=== PATIENT | female | born 1940 | race Caucasian/White ===

== ENCOUNTER → 2017-02-09 | Day surgery (SDC) | payer MEDICARE ==
[~2017-02-09] MED LIST: ASPI81TA82 PO; CALA180T PO; COUM5TAB PO; COZA50TA PO; FURO1TAB93 PO; LACTATED RINGER'S 1000 ML INJ 1,000 ML ONE; NITR.3 SL; NITR50 PO; PARO10TA PO; PROPOFOL 200 MG/20 ML AMP IV ONE; ROSU40 PO; SYNT137T PO; TRAM100T19 PO; TRAZ100 PO
--- NOTE | 2017-02-09 10:36 | GIPROC ---
[facility] [address] [facility], [address] EGD PROCEDURE REPORT EXAM DATE: 02/09/2017 PATIENT NAME: Nazanin Gee MR #: [id number] BIRTHDATE: 1940 ATTENDING: Lona Burnett MD ORDER #: [id number] TECHNICAL AIDE: Selam Sow RN STATUS: outpatient INDICATIONS: The patient is a 76 yr old female here for an EGD due to history of esophageal reflux PROCEDURE PERFORMED: EGD w/ biopsy MEDICATIONS: None and Per Anesthesia. TOPICAL ANESTHETIC: CONSENT: The patient understands the risks and benefits of the procedure and understands that these risks include, but are not limited to: sedation, allergic reaction, infection, perforation and/or bleeding. Alternative means of evaluation and treatment include, among others: physical exam, x-rays, and/or surgical intervention. The patient elects to proceed with this endoscopic procedure. medical equipment was checked for proper function. Hand hygiene and appropriate measures for infection prevention was taken. After the risks, benefits and alternatives of the procedure were thoroughly explained, Informed consent was verified, confirmed and timeout was successfully executed by the treatment team. The patient was anesthetized with topical anesthesia and the EC-3490Li ([id number]) endoscope was introduced through the mouth and advanced to the second portion of the duodenum. Retroflexed views revealed a hiatal hernia The gastroscope was then slowly withdrawn and removed. ESOPHAGUS: There was LA Class A esophagitis noted. A biopsy was performed using cold forceps. Sample sent for histology. STOMACH: There was erythematous moderate gastritis in the gastric antrum. A biopsy was performed using cold forceps. Sample sent for histology. DUODENUM: Moderate duodenal inflammation was found in the bulb and second portion of the duodenum. ADVERSE EVENTS: There were no complications. IMPRESSIONS: 1. There was LA Class A esophagitis noted; biopsy was performed 2. There was erythematous gastritis in the gastric antrum; biopsy was performed 3. Duodenal inflammation was found in the bulb and second portion of the duodenum 4. Retroflexed views revealed a hiatal hernia RECOMMENDATIONS: 1. Await biopsy results. Biopsy results will not be ready for 7-10 days. If you don't hear from us in two weeks, call our office for biopsy results. 2. Anti-reflux regimen 3. Continue PPI 4. Surgery PATIENT CONDITION: stable DISPOSITION: Home REPEAT EXAM: Return 1 year EGD pending biopsy results Lona Burnett MD eSigned: Lona Burnett MD 02/09/2017 10:35 AM cc: Pradeep Ly PATIENT NAME: Marlen Nazanin A MR#: [id number]
--- NOTE | 2017-02-09 10:47 | GIPROC ---
[facility] [address] [facility], [address] COLONOSCOPY PROCEDURE REPORT EXAM DATE: 02/09/2017 PATIENT NAME: Nazanin Gee MR #: [id number] BIRTHDATE: 1940 ENDOSCOPIST: Lona Burnett MD ORDER #: [id number] WINDING INSPECTOR AND TESTER: Selam Sow RN STATUS: outpatient INDICATIONS: The patient is a 76 yr old female here for a colonoscopy due to change in bowel habits and constipation PROCEDURE PERFORMED: Colonoscopy, diagnostic MEDICATIONS: None and Per Anesthesia. PREP QUALITY: The Accident Bowel Prep Score was Right colon 2, Mid colon 3, and Left colon 3. Total = 8. ESTIMATED BLOOD LOSS: None CONSENT: The patient understands the risks and benefits of the procedure and understands that these risks include, but are not limited to: sedation, allergic reaction, infection, perforation and/or bleeding. Alternative means of evaluation and treatment include, among others: physical exam, x-rays, and/or surgical intervention. The patient elects to proceed with this endoscopic procedure. medical equipment was checked for proper function. Hand hygiene and appropriate measures for infection prevention was taken. After the risks, benefits and alternatives of the procedure were thoroughly explained, Informed consent was verified, confirmed and timeout was successfully executed by the treatment team. A digital exam revealed external hemorrhoids The EC-3490Li ([id number]) endoscope was introduced through the anus and advanced to the cecum, which was identified by both the appendix and ileocecal valve. The instrument was then slowly withdrawn as the colon was fully examined. COLON FINDINGS: Severe diverticulosis was noted in the sigmoid colon. The colon mucosa was otherwise normal. Retroflexed views revealed internal hemorrhoids and Retroflexed views revealed medium internal hemorrhoids The scope was then completely withdrawn from the patient and the procedure terminated. PROCEDURE WITHDRAWAL TIME:6minutes ADVERSE EVENTS: There were no complications. IMPRESSIONS: 1. Severe diverticulosis was noted in the sigmoid colon 2. The colon mucosa was otherwise normal 3. Retroflexed views revealed internal hemorrhoids 4. Retroflexed views revealed medium internal hemorrhoids 5. Revealed external hemorrhoids RECOMMENDATIONS: 1. Benefiber 2 tsp daily 2. Continue surveillance 3. High fiber diet 4. No seeds, nuts and popcorn in diet RECALL: Return 5 years Colonoscopy Lona Burnett MD eSigned: Lona Burnett MD 02/09/2017 10:47 AM cc: Pradeep Ly PATIENT NAME: Nazanin Gee MR#: [id number]
== END | disposition home or self-care (01) ==
LOC: ESDC 08:52
PROVIDERS: ATTEND Internal Medicine Gastroenterology
DX: R19.4 Change in bowel habit (principal); K59.00 Constipation, unspecified; K21.9 Gastro-esophageal reflux disease without esophagitis; K57.90 Diverticulosis of intestine, part unspecified, without perforation or abscess without bleeding; K64.4 Residual hemorrhoidal skin tags; K64.8 Other hemorrhoids; K44.9 Diaphragmatic hernia without obstruction or gangrene; K29.70 Gastritis, unspecified, without bleeding; K20.9 Esophagitis, unspecified
CPT/HCPCS: 00740; 00810; 43239; 45378; 88305; 88312; J3010; J7120

== ENCOUNTER 2017-10-23 16:23 | Emergency (ER) | payer MEDICARE ==
[~2017-10-23] VITALS: Ht 172.7 cm; Wt 82.0 kg
[~2017-10-23 16:23] MED LIST changes: -LACTATED RINGER'S 1000 ML INJ 1,000 ML ONE; -PROPOFOL 200 MG/20 ML AMP IV ONE
[2017-10-23 16:41] VITALS: BP 135/60; PULSE 78; RESP 18; TEMP 100; O2SAT 96
[2017-10-23 16:59] VITALS: BP 139/63; PULSE 68; RESP 18; O2SAT 96
[2017-10-23] MEDS ORDERED: VERA180C3 PO (17:07)
[2017-10-23] MEDS ORDERED: ROSU1TAB8 PO (17:07)
[2017-10-23] MEDS ORDERED: LEVO88TA2 PO (17:07)
[2017-10-23] MEDS ORDERED: PANT40TA3 PO (17:07)
[2017-10-23] MEDS ORDERED: RANI150C PO (17:07)
[2017-10-23] MEDS ORDERED: NITR1SUB3 SL (17:07)
[2017-10-23] MEDS ORDERED: WARF-23 PO (17:07)
[2017-10-23] MEDS ORDERED: MULTIVITAMIN PO (17:07)
[2017-10-23] MEDS ORDERED: FURO40TA PO (17:07)
[2017-10-23] MEDS ORDERED: PARO10TA2 PO (17:07)
[2017-10-23] MEDS ORDERED: K-TA10TA PO (17:07)
[2017-10-23] MEDS ORDERED: TRAM50TA PO (17:07)
[2017-10-23] MEDS ORDERED: TRAZ100T10 PO (17:07)
[2017-10-23] MEDS ORDERED: FERR325T18 PO (17:07)
[2017-10-23] MEDS ORDERED: CO Q30CA3 (17:07)
[2017-10-23] MEDS ORDERED: LOSA50TA PO (17:07)
--- NOTE | 2017-10-23 17:14 | PD ---
HPI Chief Complaint: Pain: Acute or Chronic Time Seen by Provider: 17:00 Travel History International Travel<30 days: No Contact w/Intl Traveler<30days: No Traveled to known affect area: No History of Present Illness HPI 77-year-old female presents to the emergency department for evaluation of left anterior knee pain for 1 week without injury. She states she only has pain if she puts pressure on it. She denies any calf or thigh pain. She is on Coumadin for multiple cardiac stents. She also reports history of COPD. She denies any headache. No fevers or chills. No chest pain shortness breath. No abdominal pain. No nausea, vomiting, diarrhea. Patient states her last INR was 5. Patient states she has no pain at this time. She has no pain to palpation. She states the only time she has pain is if she puts weight on her left leg. Mild to moderate severity. 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) Asthma: Yes Atrial Fibrillation: Yes Autoimmune Disease: No Blood Disorders: No Anxiety: Yes Depression: No Heart Rhythm Problems: Yes Cancer: No Cardiac Catheterization: Yes Cardiovascular Problems: Yes High Cholesterol: Yes Chest Pain: Yes Congestive Heart Failure: Yes COPD: No Diminished Hearing: No Diverticulitis: Yes Endocrine: Yes Gastrointestinal Disorders: Yes GERD: No Glaucoma: No Genitourinary: Yes (HISTORY OF UTIS, CYSTOSCOPE) Hepatitis: No Hiatal Hernia: No Hypertension: Yes Immune Disorder: No Implanted Vascular Access Dvce: Yes Kidney Stones: No Musculoskeletal: Yes Neurologic: No Psychiatric: Yes Reproductive: No Respiratory: Yes Immunizations Current: Yes Myocardial Infarction: Yes (2011 and ) Renal Failure: No Sickle Cell Disease: No Sleep Apnea: Yes Thyroid Disease: Yes (HYPOTHROID) Ulcer: No Tetanus Vaccination: Unknown Influenza Vaccination: Yes PNEUMOCCOCAL Vaccine (Year): 1 Menopausal: Yes Tubal Ligation: Yes Past Surgical History Abdominal Surgery: Yes (BOWEL RESECTION) AICD: No Body Medical Devices: CATARCT REMOVAL + LENS IMPLANTS. CARDIAC STENTS Cardiac Surgery: Yes (CATH WITH STENT PLACEMENT) Coronary Stent: Yes (X3) Ear Surgery: No Endocrine Surgery: No Eye Surgery: Yes (CATARACTS, IOL BILAT EYES) Genitourinary Surgery: Yes (CYSTOSCOPY (SEPTIC FROM UTI)) Gynecologic Surgery: Yes (TUBAL LIGATION IN THE 1970s) Neurologic Surgery: No Oral Surgery: No Pacemaker: No Thoracic Surgery: No Other Surgery: Yes Social History Alcohol Use: Yes (OCCASIONAL ) Tobacco Use: No (QUIT) Substance Use: No Allergies-Medications (Allergen,Severity, Reaction): Coded Allergies: acebutolol (Unverified Adverse Reaction, Severe, Drops BP quickly, 10/23/17 ) DROPS HR SIGNIFICANTLY atenolol (Unverified Adverse Reaction, Severe, Drops BP quickly, 10/23/17) DROPS HR SIGNIFICANTLY betaxolol (Unverified Adverse Reaction, Severe, Drops BP quickly, 10/23/17) DROPS HR SIGNIFICANTLY carvedilol (Unverified Adverse Reaction, Severe, Drops BP quickly, 10/23/17 ) DROPS HR SIGNIFICANTLY labetalol (Unverified Adverse Reaction, Severe, Drops BP quickly, 10/23/17) DROPS HR SIGNIFICANTLY metoprolol (Unverified Adverse Reaction, Severe, Drops BP quickly, 10/23/17 ) DROPS HR SIGNIFICANTLY nebivolol (Unverified Adverse Reaction, Severe, Drops BP quickly, 10/23/17) DROPS HR SIGNIFICANTLY pindolol (Unverified Adverse Reaction, Severe, Drops BP quickly, 10/23/17) DROPS HR SIGNIFICANTLY propranolol (Unverified Adverse Reaction, Severe, Drops BP quickly, ) DROPS HR SIGNIFICANTLY sotalol (Unverified Adverse Reaction, Severe, Drops BP quickly, 10/23/17) DROPS HR SIGNIFICANTLY timolol (Unverified Adverse Reaction, Severe, Drops BP quickly, 10/23/17) DROPS HR SIGNIFICANTLY Reported Meds & Prescriptions Reported Meds & Active Scripts Active Reported Ferrous Sulfate 325 Mg (65 Mg Iron) Tablet 325 Mg PO DAILY Paroxetine (Paroxetine HCl) 10 Mg Tab 10 Mg PO DAILY Rosuvastatin (Rosuvastatin Calcium) 20 Mg Tab 20 Mg PO DAILY Warfarin 5 Mg Tab 5 Mg PO DAILY K-Tab (Potassium Chloride) 10 Meq Tab 10 Meq PO DAILY Co Q10 (Coenzyme Q10 (Ubidecarenone)) 30 Mg Cap [Viteyes Multivitamin] 1 Tab PO DAILY Verapamil SR (Verapamil HCl) 180 Mg Cap 180 Mg PO DAILY Losartan (Losartan Potassium) 50 Mg Tab 50 Mg PO DAILY Furosemide 40 Mg Tab 40 Mg PO DAILY Pantoprazole (Pantoprazole Sodium) 40 Mg Tab 40 Mg PO DAILY Trazodone (Trazodone HCl) 100 Mg Tablet 100 Mg PO HS Tramadol (Tramadol HCl) 50 Mg Tab 50 Mg PO Q6H PRN Levothyroxine (Levothyroxine Sodium) 88 Mcg Tab 88 Mcg PO DAILY Ranitidine (Ranitidine HCl) 150 Mg Cap 150 Mg PO BID Nitroglycerin SL (Nitroglycerin) 0.4 Mg Subl 0.4 Mg SL DIRECTED PRN ONE TABLET UNDER THE TONGUE NEEDED FOR CHEST PAIN, MAY REPEAT EVERY FIVE MINUTES FOR A TOTAL OF 3 DOSES OR CALL 911 IF NO RELIEF Review of Systems Except as stated in HPI: all other systems reviewed are Neg Physical Exam Narrative GENERAL: Well-nourished, well-developed elderly female patient. SKIN: Focused skin assessment warm/dry. Patient has no erythema or warmth over left knee. HEAD: Normocephalic. Atraumatic. EYES: No scleral icterus. No injection or drainage. NECK: Supple, trachea midline. No JVD or lymphadenopathy. CARDIOVASCULAR: Regular rate and rhythm without murmurs, gallops, or rubs. Left pedal pulse 2+. RESPIRATORY: Breath sounds equal bilaterally. No accessory muscle use. Lung sounds are clear to auscultation. GASTROINTESTINAL: Abdomen soft, non-tender, nondistended. MUSCULOSKELETAL: No cyanosis. Mild swelling over left anterior knee. No tenderness to palpation. No obvious deformity. She has full flexion without pain or stiffness of the left knee. BACK: Nontender without obvious deformity. No CVA tenderness. Data Data Last Documented VS Vital Signs Date Time Temp Pulse Resp B/P (MAP) Pulse Ox O2 Delivery O2 Flow Rate FiO2 10/23/17 16:59 68 18 139/63 (88) 96 Room Air 10/23/17 16:41 100.0 Orders Orders Complete Blood Count With Diff (10/23/17 17:09) Basic Metabolic Panel (Bmp) (10/23/17 17:09) Act Partial Throm Time (Ptt) (10/23/17 17:09) Prothrombin Time / Inr (Pt) (10/23/17 17:09) Knee, Complete (4vws) (10/23/17 ) Labs Laboratory Tests Test 10/23/17 17:15 White Blood Count 8.0 TH/MM3 Red Blood Count 4.51 MIL/MM3 Hemoglobin 13.8 GM/DL Hematocrit 41.2 % Mean Corpuscular Volume 91.3 FL Mean Corpuscular Hemoglobin 30.5 PG Mean Corpuscular Hemoglobin Concent 33.4 % Red Cell Distribution Width 13.4 % Platelet Count 258 TH/MM3 Mean Platelet Volume 8.9 FL Neutrophils (%) (Auto) 62.4 % Lymphocytes (%) (Auto) 23.0 % Monocytes (%) (Auto) 8.0 % Eosinophils (%) (Auto) 5.3 % Basophils (%) (Auto) 1.3 % Neutrophils # (Auto) 5.0 TH/MM3 Lymphocytes # (Auto) 1.8 TH/MM3 Monocytes # (Auto) 0.6 TH/MM3 Eosinophils # (Auto) 0.4 TH/MM3 Basophils # (Auto) 0.1 TH/MM3 CBC Comment DIFF FINAL Differential Comment Prothrombin Time 16.5 SEC Prothromb Time International Ratio 1.6 RATIO Activated Partial Thromboplast Time 32.7 SEC Blood Urea Nitrogen 17 MG/DL Creatinine 1.09 MG/DL Random Glucose 88 MG/DL Calcium Level 9.3 MG/DL Sodium Level 140 MEQ/L Potassium Level 3.9 MEQ/L Chloride Level 104 MEQ/L Carbon Dioxide Level 27.5 MEQ/L Anion Gap 9 MEQ/L Estimat Glomerular Filtration Rate 49 ML/MIN MDM Medical Decision Making Medical Screen Exam Complete: Yes Emergency Medical Condition: Yes Medical Record Reviewed: Yes Interpretation(s) x-ray of the left knee - CONCLUSION: 1. Unremarkable radiographs of the left knee. Differential Diagnosis Knee sprain versus contusion versus septic joint Narrative Course 77-year-old female presents to the emergency department for evaluation of left knee pain for 1 week without injury. Temp in triage is 100.0. However, as soon as patient arrived in room, temperature was rechecked and it was 98.6. Patient has no evidence of septic joint. She has full flexion, no erythema, no warmth. She has no pain to palpation, no edema. Patient does appear well on exam. CBC, BMP, PTT, PT/INR, x-ray left knee are ordered and pending. CBC is unremarkable. BMP shows no acute abnormality. PTT is 32.7. PT/INR is 16.5/1.7.. X-ray of the left knee is unremarkable. Patient stable for discharge. She is to follow-up with an orthopedist. She verbalizes agreement. The patient was discharged in stable condition with instructions, including return instructions and follow up instructions. Diagnosis Primary Impression: Left knee pain Qualified Codes: M25.562 - Pain in left knee Additional Impression: Rectocele Referrals: Griffin Nunez MD call for appointment Patient Instructions: General Instructions, Knee Sprain (ED) Additional Instructions: [id number] Tylenol every 4 hours as needed for pain. Ice for 20 minutes 4-5 times daily. Follow-up with an orthopedist. Return to the emergency department for any acute worsening of symptoms. Med/Other Pt SpecificInfo: No Change to Meds Disposition: 01 DISCHARGE HOME Condition: Stable Fay Torres October 23, 2017 17:14
[2017-10-23 17:35] LABS: BASOPHIL # 0.1 TH/MM3 (0-0.2); BASOPHIL % 1.3 % (0.0-2.0); EOSINOPHIL # 0.4 TH/MM3 (0-0.4); EOSINOPHIL % 5.3 % (0.0-4.0); HEMATOCRIT 41.2 % (35.0-46.0); HEMOGLOBIN 13.8 GM/DL (11.6-15.3); LYMPHOCYTE # 1.8 TH/MM3 (1.0-4.8); MEAN CELL VOLUME 91.3 FL (80.0-100.0); MEAN CORPUSCULAR HEMOGLOBIN 30.5 PG (27.0-34.0); MEAN CORPUSCULAR HGB CONC 33.4 % (32.0-36.0); MEAN PLATELET VOLUME 8.9 FL (7.0-11.0); MONOCYTE # 0.6 TH/MM3 (0-0.9); NEUT % 62.4 % (16.0-70.0); PLATELET COUNT 258 TH/MM3 (150-450); RED BLOOD COUNT 4.51 MIL/MM3 (4.00-5.30); RED CELL DISTRIBUTION WIDTH 13.4 % (11.6-17.2)
[2017-10-23 17:43] LABS: INTERNATIONAL NORMALIZED RATIO 1.6 RATIO; PROTHROMBIN TIME - PATIENT 16.5 SEC (9.8-11.6)
--- NOTE | 2017-10-23 17:51 | RADRPT ---
EXAM DATE/TIME: 10/23/2017 17:29 [place] COMPARISON: No previous studies available for comparison. INDICATIONS : Left Knee Pain, no trauma MEDICAL HISTORY : None. SURGICAL HISTORY : None. ENCOUNTER: Initial ACUITY: 1 day PAIN SCORE: 7/10 LOCATION: Left knee FINDINGS: Four view examination of the left knee demonstrates no evidence of fracture or dislocation. Bony min eralization is normal. The articular surfaces are intact. The suprapatellar soft tissues have a nor mal configuration. CONCLUSION: 1. Unremarkable radiographs of the left knee. Orlin Melendez MD on October 23, 2017 at 17:48 Board Certified Radiologist. This report was verified electronically.
[2017-10-23 17:58] LABS: BICARBONATE 27.5 MEQ/L (21.0-32.0); CALCIUM 9.3 MG/DL (8.5-10.1); CREATININE 1.09 MG/DL (0.50-1.00)
[2017-10-23 18:45] VITALS: BP 123/79
== END 2017-10-23 18:52 | disposition home or self-care (01) ==
LOC: NEPE 16:23
DX: M25.562 Pain in left knee (principal); I10 Essential (primary) hypertension; I48.91 Unspecified atrial fibrillation; E03.9 Hypothyroidism, unspecified; E78.00 Pure hypercholesterolemia, unspecified; I25.2 Old myocardial infarction; F41.9 Anxiety disorder, unspecified; Z79.01 Long term (current) use of anticoagulants; Z87.39 Personal history of other diseases of the musculoskeletal system and connective tissue; Z87.09 Personal history of other diseases of the respiratory system; Z86.79 Personal history of other diseases of the circulatory system; Z87.19 Personal history of other diseases of the digestive system; Z87.448 Personal history of other diseases of urinary system
CPT/HCPCS: 73564; 80048; 85025; 85610; 85730; 99284

== ENCOUNTER 2018-04-04 05:38 | Inpatient (IN) ==
[2018-04-04] MEDS ORDERED: Heparin - SQ 10,000 UNITS/ML Vial ONE (06:09)
[2018-04-04] MEDS ORDERED: ceFAZolin 2 GM Premix Inj 2 GM/50 ML PIGGYBACK IV.SIG ONE (06:09)
[2018-04-04] MEDS ORDERED: Insulin Regular (For Infusion) 100 UNIT in Sodium Chlor 0.9% Inj 99 ML IV.CONT PRN ×2 (06:12→11:27)
[2018-04-04] MEDS ORDERED: Dextrose 50% in Water 50 ML Vial IV.PUSH PRN ×2 (06:12→11:27)
[2018-04-04] MEDS ORDERED: Sodium Chlor 0.9% Inj 77.5 ML, Papaverine Inj 60 MG, Nitroglycerin Inj 100 MCG, dilTIAZ... IRRIGATION SCH ×3 (06:15)
[2018-04-04] MEDS ORDERED: Sodium Chloride 0.9% Irr Bot 500 ML, ceFAZolin Inj 500 MG IRRIGATION SCH ×2 (06:15)
[2018-04-04] MEDS ORDERED: Chlorhexidine 4% Topical 120 APPLIC/120 ML Bottle TOPICAL SCH (06:15)
[2018-04-04] MEDS ORDERED: Metoprolol Tartrate 25 MG Tablet PO ONE (06:19)
[2018-04-04] MEDS ORDERED: Chlorhexidine Gluconate 2% 1 Pack (2 Cloths) TOPICAL ONE (06:19)
[2018-04-04 06:36] LABS: Bilirubin,Urine Negative (Negative); Clarity,Urine Hazy (Clear); Color,Urine Yellow (Yellw/Straw); Glucose,Urine (UA) Negative (Negative); Leukocyte Esterase,Urine Trace (Negative); Mucus,Urine Few /lpf (Occasional); Nitrite,Urine Negative (Negative); Specific Gravity,Urine 1.019 (1.002-1.035); Squamous Epithelial Cell,Urine 4 /hpf (0-5)
[2018-04-04 06:59] LABS: Activated Partial Thrombo Time 27.5 sec (24.3-30.1); INR 1.1 Ratio; Prothrombin Time 11.2 sec (9.8-11.6)
[2018-04-04] MEDS ORDERED: Sodium Chlor 0.9% Inj 500 ML IV.SIG SCH (07:00)
[2018-04-04] MEDS ORDERED: Potassium Chlor 40 mEq Premix 40 MEQ/100 ML PIGGYBACK ONE (07:16)
[2018-04-04] MEDS ORDERED: CUST1000P IRRIGATION ONE (07:16)
[2018-04-04] MEDS ORDERED: Calcium Chloride Inj 1 GM/10 ML Syringe ONE (07:17)
[2018-04-04] MEDS ORDERED: Albumin Human 25% Inj 50 ML IV.SIG ONE (07:17)
[2018-04-04] MEDS ORDERED: Heparin 10,000 UNITS/10 ML Vial (for IV use) ONE (07:18)
[2018-04-04] MEDS ORDERED: Potassium Chlor 20 mEq Premix 20 MEQ/100 ML PIGGYBACK IV.SIG PRN ×3 (11:27)
[2018-04-04] MEDS ORDERED: Morphine Sulfate Inj 2 MG/ML Vial IV.PUSH PRN (11:27)
[2018-04-04] MEDS ORDERED: Calcium Chloride Inj 1 GM in Sodium Chlor 0.9% Inj 100 ML IV.SIG PRN (11:27)
[2018-04-04] MEDS ORDERED: Dexmedetomidine Inj 200 MCG in Sodium Chlor 0.9% Inj 48 ML IV.CONT PRN (11:27)
[2018-04-04] MEDS ORDERED: RESP: Racemic Epinephrine 2.25% 0.5 ML Neb NEB PRN (11:27)
[2018-04-04] MEDS ORDERED: Phenylephrine Inj 40 MG in Sodium Chlor 0.9% Inj 496 ML IV.CONT PRN (11:27)
[2018-04-04] MEDS ORDERED: Clevidipine Inj 25 MG/50 ML VIAL IV.CONT PRN (11:27)
[2018-04-04] MEDS ORDERED: Ketorolac Inj 30 MG/ML (IVP) Vial IV.PUSH PRN (11:27)
[2018-04-04] MEDS ORDERED: Post-op Orders (for Pharmacy) OTHER STA (11:27)
[2018-04-04] MEDS ORDERED: Magnesium Sulfate Inj 2 GM in Sodium Chlor 0.9% Inj 96 ML IV.SIG PRN ×4 (11:27)
[2018-04-04] MEDS ORDERED: Metoprolol Inj 5 MG/5 ML Vial IV.PUSH PRN (11:27)
[2018-04-04] MEDS ORDERED: Calcium Chloride Inj 1 GM/10 ML Syringe IV.PUSH PRN (11:27)
--- NOTE | 2018-04-04 11:51 | P.OP ---
Date of procedure: 04/04/18 Anesthesia: RONNAA Surgeon: Fermin Warner MD Operation and Findings: PREPROCEDURE DIAGNOSES 1. Severe Multi Vessel Coronary Artery Disease. 2. Severe aortic stenosis 3. Atrial fibrillation status post ablation POSTPROCEDURE DIAGNOSES 1. Severe Multi Vessel Coronary Artery Disease. 2. Severe aortic stenosis 3. Atrial fibrillation status post ablation 4. Heavily calcified ascending aorta SURGICAL PROCEDURE 1. Clampless off-pump Coronary Artery Bypass Grafting x 2 with Left Internal Mammary Artery (ZAPATA) to Left Anterior Descending (LAD), reverse saphenous vein graft to obtuse Marginal branch of the left Circumflex artery 2. Left leg Endoscopic Vein [place] 3. Left atrial appendage excision 4. Intraoperative Vein Mapping. SURGEON Fermin Warner MD THIMBLE PRESS OPERATOR MARIS Hyatt ANESTHESIA General endotracheal FOREIGN STUDENT ADVISER JANNET Henderson MD PREPARATION ChloraPrep. COUNTS Needle, sponge, and instrument counts were correct. DRAINS Two 32-Cymraes mediastinal tubes. COMPLICATIONS None. INDICATIONS FOR PROCEDURE The patient is a 77-year-old presenting with chest pain and shortness of breath. Patient was noted to have multi-vessel coronary artery disease and severe aortic stenosis. The patient is being brought to the operating room for surgical therapy. PROCEDURE Patient was brought to the operating room and placed supine on the OR table. Following the induction of adequate general endotracheal anesthesia and placement of appropriate monitoring devices, intraoperative vein mapping was performed which revealed good-caliber conduit in bilateral lower extremities. The patient was then prepped and draped in standard sterile fashion. Next, 2500 units of intravenous heparin was given. The left greater saphenous vein was harvested endoscopically. This appeared to be a useable-caliber conduit. Simultaneously, a median sternotomy was performed and the left internal mammary artery dissected free off the posterior sternal table. The patient was systemically heparinized and anticoagulation monitored by serial ACT measurements. The internal mammary artery had excellent pulsatile flow in it and was a good-caliber conduit. The pericardium was then divided in the midline , the cradle created and targets analyzed. Exploration and manual palpation of the ascending aorta revealed a heavily calcified aorta with dense posterior wall platelike plaque precluding the ability cross-clamp the aorta or pit put her on cardiopulmonary bypass, therefore, plans were made to proceed with off- pump coronary revascularization with potential TAVR following recovery. At this point, all anastomoses were performed in a beating-heart fashion using the MiniVax stabilizing system. The left internal mammary artery was anastomosed to the mid LAD (2.25 mm), distal to the previous stent, in an end-to-side fashion using 7-0 Prolene. Segment of saphenous vein graft was then anastomosed to the OM1 (1.75 mm) in an end-to-side fashion using 7-0 Prolene. The proximal anastomosis was then constructed to the ascending aorta in a clamp less running manner using the Heartstring device and a 6-0 Prolene. The left atrial appendage was then excised using the surgical stapler and sent for histologic evaluation. All anastomotic and staple line sites were inspected and appeared to be hemostatic and patent. Protamine solution was given. Strict hemostasis was assured. The closure was undertaken. 2 chest tubes were placed. The pericardium was reapproximated in the midline. The sternum was approximated using sternal wires. The muscular and fascial layer were then closed in 3 layers. The endoscopic vein harvest site was closed in 2 layers. The patient tolerated the procedure well and was transferred to CVICU in stable condition.
[2018-04-04] MEDS ORDERED: ceFAZolin Inj 2,000 MG in Sodium Chlor 0.9% Inj 80 ML IV.SIG SCH (12:00)
[2018-04-04] MEDS ORDERED: fentaNYL Citrate Inj 250 MCG/5 ML Ampul ONE (12:20)
[2018-04-04] MEDS: Albumin Human 5% Inj 250 ML IV.SIG PRN ×2 (12:35→15:20)
--- NOTE | 2018-04-04 13:24 | XR ---
EXAM DATE: 04/04/2018 1:16 PM EDT AGE/SEX: 77 years / Female INDICATIONS: Post-op CABG. CLINICAL DATA: This is the patient's initial encounter. Patient reports that signs and symptoms have been present for 1 day and indicates a pain score of Nonresponsive. MEDICAL/SURGICAL HISTORY: . Congestive heart failure. Chronic obstructive pulmonary disease. Hy pertension. Aortic stenosis. None. [place]PAR[place]: [facility] [place]&LAT[place]. . FINDINGS: A single AP view of the chest demonstrates evidence of CABG. Endotracheal tube approximately 4 cm abo ve the marium. Left subclavian central line with tip in the cavoatrial junction. Nasogastric tube coi led in what appears to be a large hiatal hernia. Mediastinal chest tube and left-sided chest tube. No pneumothorax. Cardiomegaly. Pulmonary vascular congestion and bibasilar densities. CONCLUSION: 1. Status post CABG. 2. Cardiomegaly with pulmonary vascular congestion and bibasilar densities. 3. Support lines and tubes as above. 4. Nasogastric tube likely coiled within a large hiatal hernia. Electronically signed by: Nawaf Fitzgerald MD 04/04/2018 1:23 PM EDT
[2018-04-04] MEDS: Mupirocin 2% Nasal Oint Topical Syringe EACH NARE SCH ×2 (14:14→21:59)
[2018-04-04] MEDS: ceFAZolin 2 GM Premix Inj 2 GM/50 ML PIGGYBACK IV.SIG SCH (15:20)
[2018-04-04] MEDS ORDERED: Normosol-R pH 7.4 Inj 1,000 ML IV.CONT ONE (17:21)
[2018-04-04] MEDS ORDERED: Glycopyrrolate 0.2 MG/ML Vial IV.PUSH ONE (17:21)
[2018-04-04] MEDS ORDERED: Sodium Chlor 0.9% Inj 500 ML IV.CONT ONE ×3 (17:21)
[2018-04-04] MEDS ORDERED: Dexmedetomidine Inj 200 MCG/2 ML Vial IV.CONT ONE (17:21)
[2018-04-04] MEDS ORDERED: Protamine Sulfate Inj 250 MG/25 ML Vial IV.CONT ONE (17:21)
[2018-04-04] MEDS ORDERED: Tranexamic Acid Inj 1,000 MG/10 ML Ampul IV.PUSH ONE (17:21)
[2018-04-04] MEDS ORDERED: Heparin - SQ 10,000 UNITS/ML Vial OTHER ONE (17:21)
[2018-04-04] MEDS ORDERED: Succinylcholine Inj 100 MG/5 ML Syringe IV.PUSH ONE (17:21)
[2018-04-04] MEDS ORDERED: Phenylephrine/NS 1000 MCG/10ML Syringe IV.PUSH ONE (17:21)
[2018-04-04] MEDS ORDERED: NITROGLYCERIN IV.CONT ONE (17:21)
[2018-04-04] MEDS ORDERED: Sodium Chlor 0.9% Inj 200 ML IV.CONT ONE (17:21)
[2018-04-04] MEDS: fentaNYL Citrate Inj 100 MCG/2 ML Ampul IV.PUSH PRN (21:55)
[2018-04-04] MEDS: Amiodarone 200 MG Tablet PO SCH (21:59)
[2018-04-05] MEDS: ceFAZolin 2 GM Premix Inj 2 GM/50 ML PIGGYBACK IV.SIG SCH ×3 (00:29→17:48)
[2018-04-05] MEDS: fentaNYL Citrate Inj 100 MCG/2 ML Ampul IV.PUSH PRN ×4 (03:44→08:49)
--- NOTE | 2018-04-05 05:02 | XR ---
EXAM DATE: 04/05/2018 4:53 AM EDT AGE/SEX: 77 years / Female INDICATIONS: Short of breath. CLINICAL DATA: This is the patient's subsequent encounter. Patient reports that signs and symptoms h ave been present for 2 days and indicates a pain score of 0/10. MEDICAL/SURGICAL HISTORY: . Congestive heart failure. Chronic obstructive pulmonary disease. Hy pertension. Aortic stenosis. CABG. [place] [facility] [place] S[place]. . FINDINGS: Median sternotomy changes are again noted. Mediastinal drain and left chest tube remain in place. No pneumothorax. There is basilar parenchymal consolidation, slightly worse on the right and modestly im proved on the left. Small, bilateral pleural effusions are likely. Heart size stable, upper limits of normal. Left subclavian central venous catheter with tip in the superior vena cava again noted. CONCLUSION: Bibasilar consolidation slightly worse on the right and slightly improved on the left since yesterday . Mediastinal drain and left chest tube remain in place. No pneumothorax. Electronically signed by: Caden Chisholm MD 04/05/2018 5:01 AM EDT
[2018-04-05 05:28] LABS: Hemoglobin 10.5 gm/dL (11.6-15.3); Mean Corpuscular HGB Conc 32.8 % (32.0-36.0); Mean Corpuscular Hemoglobin 30.9 pg (27.0-34.0); Mean Corpuscular Volume 94.1 fL (80.0-100.0); Mean Platelet Volume 8.8 fL (7.0-11.0); Platelet Count 224 th/mm3 (150-450); Red Blood Count 3.41 mil/mm3 (4.00-5.30); Red Cell Distribution Width 13.6 % (11.6-17.2); White Blood Count 15.6 th/mm3 (4.0-11.0)
[2018-04-05] MEDS: Levothyroxine 100 MCG Tablet PO SCH (05:45)
[2018-04-05 05:57] LABS: Calcium 8.4 mg/dL (8.5-10.1); Carbon Dioxide 24.1 meq/L (21.0-32.0); Magnesium 1.8 mg/dL (1.5-2.5); Potassium 4.2 meq/L (3.5-5.1)
[2018-04-05] MEDS ORDERED: ROSUVASTATIN 20 MG PO SCH (09:00)
[2018-04-05] MEDS ORDERED: Dextrose 50% in Water 50 ML Vial IV.PUSH PRN (09:16)
[2018-04-05] MEDS ORDERED: Sod Phosphate/Sod Biphosphate (Adult) Enema 133 ML Bottle RECTAL PRN (09:16)
[2018-04-05] MEDS ORDERED: Bisacodyl 10 MG Supp RECTAL PRN (09:16)
[2018-04-05] MEDS: Amiodarone 200 MG Tablet PO SCH ×2 (09:31→21:29)
[2018-04-05] MEDS: Mupirocin 2% Nasal Oint Topical Syringe EACH NARE SCH ×2 (09:32→21:33)
[2018-04-05] MEDS: Metoprolol Tartrate 25 MG Tablet PO SCH ×3 (09:36→22:08)
[2018-04-05] MEDS: Insulin NovoLOG Aspart Correctional Sugar Inj SQ SCH ×4 (10:07→22:08)
--- NOTE | 2018-04-05 12:01 | P.PNCV ---
- Note Subjective/Hospital Course: 77/ female initially seen on 03/13/18 in [facility] with Dr Warner, hx of progressive SOB over past few months . Known hx of CAD previous PCI's , ECHO revealed severe . Cardiac cath revealed multivessel disease PMH: Afib, Aortic stenosis, Asthma, CAD (coronary artery disease), CHF ( congestive heart failure), HLD (hyperlipidemia), HTN (hypertension) Hiatal hernia, Hypothyroid, LBBB (left bundle branch block), Mitral regurgitation, Myocardial infarct, Sleep apnea, TIA (transient ischemic attack) UTI (urinary tract infection) 04/04 pt electively admitted for surgery PREPROCEDURE DIAGNOSES 1. Severe Multi Vessel Coronary Artery Disease. 2. Severe aortic stenosis 3. Atrial fibrillation status post ablation POSTPROCEDURE DIAGNOSES 1. Severe Multi Vessel Coronary Artery Disease. 2. Severe aortic stenosis 3. Atrial fibrillation status post ablation 4. Heavily calcified ascending aorta SURGICAL PROCEDURE 1. Clampless off-pump Coronary Artery Bypass Grafting x 2 with Left Internal Mammary Artery (ZAPATA) to Left Anterior Descending (LAD), reverse saphenous vein graft to obtuse Marginal branch of the left Circumflex artery 2. Left leg Endoscopic Vein [place] 3. Left atrial appendage excision pt extubated after surgery crystalloid 2300cc, 1500cc EBL, 750cc cell saver 04/05 pt up in chair ECG with some mild global st elevation / pericarditis + rub, no pressors , stable for transfer, resume BB will need to resume coumadin when chest tubes out Objective: Vital Signs - 24 hr 04/04/18 12:00 04/04/18 12:11 04/04/18 12:41 Temperature 97.5 F L Pulse Rate 58 L 60 Respiratory Rate 12 12 Blood Pressure 107/32 L Pulse Oximetry 99 99 04/04/18 13:15 04/04/18 15:00 04/04/18 15:15 Temperature 97.4 F L Pulse Rate 64 Respiratory Rate 9 L 12 12 Blood Pressure 120/53 L Pulse Oximetry 96 99 99 04/04/18 15:30 04/04/18 17:00 04/04/18 17:25 Temperature Pulse Rate 67 Respiratory Rate 12 13 12 Blood Pressure Pulse Oximetry 99 99 04/04/18 18:05 04/04/18 19:00 04/04/18 20:00 Temperature 98.8 F Pulse Rate 71 80 Respiratory Rate 9 L 12 Blood Pressure 123/62 Pulse Oximetry 99 99 04/04/18 20:49 04/04/18 23:00 04/05/18 00:00 Temperature 99 F Pulse Rate 87 86 80 Respiratory Rate 14 18 16 Blood Pressure 144/67 H Pulse Oximetry 99 04/05/18 00:45 04/05/18 03:00 04/05/18 04:05 Temperature 99.4 F Pulse Rate 89 93 H Respiratory Rate 16 16 14 Blood Pressure 140/68 Pulse Oximetry 99 04/05/18 04:15 04/05/18 07:00 04/05/18 09:21 Temperature 98.8 F Pulse Rate 84 101 H Respiratory Rate 16 16 18 Blood Pressure 145/55 H Pulse Oximetry 97 94 L GENERAL: A&O x 3 SKIN: Warm and dry. prevena dressing to chest cain wrap to left leg HEAD: Normocephalic. EYES: No scleral icterus. No injection or drainage. NECK: Supple, trachea midline. No JVD or lymphadenopathy. CARDIOVASCULAR: Regular rate and rhythm without murmurs, gallops, + rubs. RESPIRATORY: Breath sounds equal bilaterally. No accessory muscle use. diminished in the bases , chest tube to wall suction, no air leak / drained 130cc/ 12hrs GASTROINTESTINAL: Abdomen soft, non-tender, nondistended. MUSCULOSKELETAL: No cyanosis, or edema. BACK: Nontender without obvious deformity. No CVA tenderness. Labs: Laboratory Results - last 12 hr 04/05/18 04/05/18 04/05/18 00:19 02:01 04:17 WBC RBC Hgb Hct MCV MCH MCHC RDW Plt Count MPV Sodium Potassium Chloride Carbon Dioxide Anion Gap BUN Creatinine Estimated GFR POC Glucose 81 113 H 132 H Random Glucose Calcium Magnesium 04/05/18 04/05/18 04/05/18 05:00 05:00 05:13 WBC 15.6 H RBC 3.41 L Hgb 10.5 L Hct 32.0 L MCV 94.1 MCH 30.9 MCHC 32.8 RDW 13.6 Plt Count 224 MPV 8.8 Sodium 141 Potassium 4.2 Chloride 110 H Carbon Dioxide 24.1 Anion Gap 7 BUN 18 Creatinine 0.96 Estimated GFR 56 L POC Glucose 115 H Random Glucose 104 Calcium 8.4 L Magnesium 1.8 04/05/18 04/05/18 07:21 09:20 WBC RBC Hgb Hct MCV MCH MCHC RDW Plt Count MPV Sodium Potassium Chloride Carbon Dioxide Anion Gap BUN Creatinine Estimated GFR POC Glucose 77 102 Random Glucose Calcium Magnesium Result Diagrams: 04/05/18 05:00 04/05/18 05:00 Telemetry: NSR/ global mild st elevation + rub/ pericarditis - Plan (1) S/P CABG (coronary artery bypass graft) Plan: ASA, no statin / pt intolerance and allergy pulm toileting , nebs ezpap, acapella OOB ambulate resume BB eval for rehab at discharge (5) Atrial fibrillation Plan: s/p atrial appendage excision resume Coumadin when chest tubes out (6) COPD (chronic obstructive pulmonary disease) Plan: nebs
--- NOTE | 2018-04-05 13:27 | ECG ---
Date Performed: 04/05/2018 Time Performed: 06:12:44 PTAGE: 77 years EKG: Sinus rhythm Extensive ST elevation - consider pericarditis Borderline ECG PREVIOUS TRACING : 03/09/2018 10.17 DOCTOR: Juan Alberto Young Interpretating Date/Time 04/05/2018 13:26:00
--- NOTE | 2018-04-05 15:37 | P.DIET ---
Nutritional Evaluation Type of nutrition evaluation: initial [place] [facility] [place]: [place] [facility] [place] Education Objective - Diagnosis CABG x 2 - Objective Dietitian Reviewed in Medical Record: Current diet, Intake & Output, Labs, Medical history Diet Order: Cardiac Objective Comments: 04/04/18 CABG x 2 Assessment Assessment: Pt is s/p CABG x 2(04/04/18). Patient Navigator to provide education. Please Consult RD if complexities with diet education arise. Recommendations: 1. Patient Navigator to provide education 2. Please Consult RD if complexities with diet education arise
[2018-04-05] MEDS: Docusate Sodium 100 MG Capsule PO SCH (21:29)
[2018-04-06] MEDS: ceFAZolin 2 GM Premix Inj 2 GM/50 ML PIGGYBACK IV.SIG SCH (00:09)
[2018-04-06] MEDS: Insulin NovoLOG Aspart Correctional Sugar Inj SQ SCH ×5 (03:56→20:46)
[2018-04-06] MEDS ORDERED: Amiodarone Inj 150 MG in Dextrose 5% in Water Inj 100 ML IV.SIG SCH ×2 (04:45)
[2018-04-06] MEDS: Levothyroxine 100 MCG Tablet PO SCH (05:13)
[2018-04-06 07:08] LABS: Baso % (Auto) 0.1 % (0.0-2.0); Eos % (Auto) 0.1 % (0.0-4.0); Hematocrit 29.5 % (35.0-46.0); Hemoglobin 9.9 gm/dL (11.6-15.3); Lymph # (Auto) 0.9 th/mm3 (1.0-4.8); Lymph % (Auto) 4.5 % (9.0-44.0); Mean Corpuscular HGB Conc 33.7 % (32.0-36.0); Mean Corpuscular Hemoglobin 31.4 pg (27.0-34.0); Mean Corpuscular Volume 93.4 fL (80.0-100.0); Mean Platelet Volume 9.3 fL (7.0-11.0); Mono # (Auto) 2.5 th/mm3 (0.0-0.9); Mono % (Auto) 12.6 % (0.0-8.0); Neut # (Auto) 16.4 th/mm3 (1.8-7.7); Neut % (Auto) 82.7 % (16.0-70.0); Platelet Count 227 th/mm3 (150-450); Red Blood Count 3.16 mil/mm3 (4.00-5.30); White Blood Count 19.8 th/mm3 (4.0-11.0)
[2018-04-06 07:18] LABS: INR 1.7 Ratio
[2018-04-06 07:50] LABS: Calcium 8.6 mg/dL (8.5-10.1); Carbon Dioxide 27.5 meq/L (21.0-32.0); Magnesium 2.5 mg/dL (1.5-2.5); Potassium 4.5 meq/L (3.5-5.1)
[2018-04-06 08:46] LABS: Lymphocytes 4 % (9-44); Monocytes 15 % (0-8)
[2018-04-06 08:47] LABS: Platelet Estimate Normal (Normal); Platelet Morphology Normal (Normal); RBC Morphology Normal (Normal)
[2018-04-06] MEDS: Docusate Sodium 100 MG Capsule PO SCH ×2 (09:26→20:43)
[2018-04-06] MEDS: Metoprolol Tartrate 25 MG Tablet PO SCH ×2 (09:27→09:29)
[2018-04-06] MEDS: Multivitamin/Minerals Therapeutic Tablet PO SCH (09:27)
[2018-04-06] MEDS: Amiodarone 200 MG Tablet PO SCH (09:27)
[2018-04-06] MEDS: Polyethylene Glycol 3350 17 GM Packet PO SCH (09:28)
[2018-04-06] MEDS: Mupirocin 2% Nasal Oint Topical Syringe EACH NARE SCH ×2 (09:28→20:43)
[2018-04-06] MEDS ORDERED: Amiodarone Inj 150 MG in Dextrose 5% in Water Inj 97 ML IV.SIG ONE ×2 (09:33)
--- NOTE | 2018-04-06 12:00 | P.PNCV ---
- Note Subjective/Hospital Course: 77/ female initially seen on 03/13/18 in [facility] with Dr Warner, hx of progressive SOB over past few months . Known hx of CAD previous PCI's , ECHO revealed severe . Cardiac cath revealed multivessel disease PMH: Afib, Aortic stenosis, Asthma, CAD (coronary artery disease), CHF ( congestive heart failure), HLD (hyperlipidemia), HTN (hypertension) Hiatal hernia, Hypothyroid, LBBB (left bundle branch block), Mitral regurgitation, Myocardial infarct, Sleep apnea, TIA (transient ischemic attack) UTI (urinary tract infection) 04/04 pt electively admitted for surgery PREPROCEDURE DIAGNOSES 1. Severe Multi Vessel Coronary Artery Disease. 2. Severe aortic stenosis 3. Atrial fibrillation status post ablation POSTPROCEDURE DIAGNOSES 1. Severe Multi Vessel Coronary Artery Disease. 2. Severe aortic stenosis 3. Atrial fibrillation status post ablation 4. Heavily calcified ascending aorta SURGICAL PROCEDURE 1. Clampless off-pump Coronary Artery Bypass Grafting x 2 with Left Internal Mammary Artery (ZAPATA) to Left Anterior Descending (LAD), reverse saphenous vein graft to obtuse Marginal branch of the left Circumflex artery 2. Left leg Endoscopic Vein [place] 3. Left atrial appendage excision pt extubated after surgery crystalloid 2300cc, 1500cc EBL, 750cc cell saver 04/05 pt up in chair ECG with some mild global st elevation / pericarditis + rub, no pressors , stable for transfer, resume BB will need to resume coumadin when chest tubes out 04/06 chest tube dc without difficultly pt went into afib RVR last night and this am received 2nd bolus of amiodarone / po amiodarone increased will resume coumadin / this pm goal 2.5 / followed by Dr Menendez at home Objective: Vital Signs - 24 hr 04/05/18 12:00 04/05/18 15:00 04/05/18 15:17 Temperature 98.5 F Pulse Rate 82 75 83 Respiratory Rate 17 17 Blood Pressure 141/65 H Pulse Oximetry 97 04/05/18 16:02 04/05/18 16:16 04/05/18 17:11 Temperature 98.9 F Pulse Rate 81 80 79 Respiratory Rate 18 Blood Pressure 134/60 Pulse Oximetry 04/05/18 18:26 04/05/18 19:00 04/05/18 20:00 Temperature 98.2 F Pulse Rate 79 81 78 Respiratory Rate 16 Blood Pressure 123/55 L Pulse Oximetry 96 04/05/18 20:52 04/05/18 20:55 04/05/18 21:00 Temperature Pulse Rate 78 78 Respiratory Rate 18 Blood Pressure Pulse Oximetry 97 04/05/18 22:00 04/05/18 23:00 04/06/18 00:00 Temperature 98.7 F Pulse Rate 82 75 74 Respiratory Rate 16 Blood Pressure 114/70 Pulse Oximetry 96 04/06/18 01:00 04/06/18 02:00 04/06/18 03:00 Temperature 98.2 F Pulse Rate 80 108 H 118 H Respiratory Rate 16 Blood Pressure 117/67 Pulse Oximetry 97 04/06/18 04:00 04/06/18 05:00 04/06/18 06:00 Temperature Pulse Rate 122 H 108 H 112 H Respiratory Rate Blood Pressure Pulse Oximetry 04/06/18 07:00 04/06/18 08:00 04/06/18 09:00 Temperature 98.3 F Pulse Rate 120 H 112 H 120 H Respiratory Rate 18 Blood Pressure 122/59 L Pulse Oximetry 94 L 04/06/18 10:00 04/06/18 10:25 04/06/18 10:46 Temperature Pulse Rate 126 H 125 H Respiratory Rate Blood Pressure Pulse Oximetry 96 GENERAL: A&O x 3 SKIN: Warm and dry. prevena dressing to chest / incision intact to left leg HEAD: Normocephalic. EYES: No scleral icterus. No injection or drainage. NECK: Supple, trachea midline. No JVD or lymphadenopathy. CARDIOVASCULAR: irregular rate and rhythm without murmurs, gallops, or rubs. RESPIRATORY: Breath sounds equal bilaterally. No accessory muscle use. diminished in bases / chest tube dc without difficulty GASTROINTESTINAL: Abdomen soft, non-tender, nondistended. MUSCULOSKELETAL: No cyanosis, or edema. BACK: Nontender without obvious deformity. No CVA tenderness. Labs: Laboratory Results - last 12 hr 04/06/18 04/06/18 04/06/18 02:33 05:17 05:30 WBC 19.8 H RBC 3.16 L Hgb 9.9 L Hct 29.5 L MCV 93.4 MCH 31.4 MCHC 33.7 RDW 14.0 Plt Count 227 MPV 9.3 Prelim Diff (Auto) Slide review pending Neut % (Auto) 82.7 H Lymph % (Auto) 4.5 L [place] % (Auto) 12.6 H Eos % (Auto) 0.1 Baso % (Auto) 0.1 Neut # (Auto) 16.4 H Lymph # (Auto) 0.9 L [place] # (Auto) 2.5 H Eos # (Auto) 0.0 Baso # (Auto) 0.0 WBC Differential Manual diff final Seg Neuts % (Manual) 79 H Band Neuts % (Manual) 1 Lymphocytes % (Manual) 4 L Monocytes % (Manual) 15 H Basophils % (Manual) 1 Abs Neuts (Manual) 15.8 H Differential Comment . Platelet Estimate Normal Platelet Morphology Normal RBC Morphology Normal PT INR Sodium Potassium Chloride Carbon Dioxide Anion Gap BUN Creatinine Estimated GFR POC Glucose 108 136 H Random Glucose Calcium Magnesium 04/06/18 04/06/18 04/06/18 05:30 05:30 08:20 WBC RBC Hgb Hct MCV MCH MCHC RDW Plt Count MPV Prelim Diff (Auto) Neut % (Auto) Lymph % (Auto) [place] % (Auto) Eos % (Auto) Baso % (Auto) Neut # (Auto) Lymph # (Auto) [place] # (Auto) Eos # (Auto) Baso # (Auto) WBC Differential Seg Neuts % (Manual) Band Neuts % (Manual) Lymphocytes % (Manual) Monocytes % (Manual) Basophils % (Manual) Abs Neuts (Manual) Differential Comment Platelet Estimate Platelet Morphology RBC Morphology PT 17.0 H INR 1.7 Sodium 138 Potassium 4.5 Chloride 104 Carbon Dioxide 27.5 Anion Gap 7 BUN 26 H Creatinine 1.08 H Estimated GFR 49 L POC Glucose 115 H Random Glucose 100 Calcium 8.6 Magnesium 2.5 D Result Diagrams: 04/06/18 05:30 04/06/18 05:30 Telemetry: NSR> AFIB - Plan (1) S/P CABG (coronary artery bypass graft) Plan: ASA, resume home med [place] pulm toileting , nebs ezpap, acapella OOB ambulate resume BB eval for rehab at discharge (2) Severe aortic stenosis Plan: will need planned TAVR after discharge (5) Atrial fibrillation Plan: s/p atrial appendage excision resume Coumadin on amiodarone (6) COPD (chronic obstructive pulmonary disease) Plan: nebs ezpap and acapella
--- NOTE | 2018-04-06 12:07 | P.DCO ---
- Diagnosis (1) Severe aortic stenosis Status: Chronic (2) Coronary artery disease involving [place] coronary artery Status: Acute (3) Congestive heart failure (CHF) Status: Chronic (4) Atrial fibrillation Status: Chronic (5) COPD (chronic obstructive pulmonary disease) Status: Chronic (6) S/P CABG (coronary artery bypass graft) Status: Acute - Home Health Nursing Order: Medical education, Signs/symptoms of disease process, Wound care and dressing changes, Nursing assessment with vital signs Instructions: PREVENA Single Use Negative Wound Therapy System Caregiver Instruction Sheet 1. A Prevena dressing system was applied to the chest incision during surgery , to promote wound healing. It works via a suction device (negative pressure wound therapy) to remove low to moderate levels of exudate (drainage) and infectious materials. We recommend that the device stay in place for up to seven days, from day of surgery. 2. Day of Surgery__/ Day of Removal ____/11/21 3. The dressing should only be removed by a health healthcare network pricing consultant. Please arrange removal of device to coincide with Home Health visit and or with Nursing staff at Rehab 4. If skin reddening or irritation of skin occurs, or excessive drainage, please notify the Cardiovascular Surgeons office at [phone]. 5. Light showering is permissible; however the pump should be disconnected and placed in safe location, where it will not get wet. The dressing should not be exposed to direct spray or submerged in water. No bath tub / shower only. Ensure the end of the tubing attached to the dressing is facing down so that water does not enter the top of the tube. 6. To remove Prevena dressing: press purple button to turn off device / remove the suction. Then disconnect the tubing from the pump. The fixation strips should be stretched away from the skin and the dressing lifted at one corner and peeled back until it has been fully removed. 7. After removal, it is ok to shower daily using liquid dial soap and clean wash cloth, rinse and pat dry, and leave incision open to air dry. For any concerns regarding Prevena dressing, and or wounds, please contact Krysta Garcia, patient navigator at [phone] or notify the Cardiovascular Surgeons office at [phone]. Heart and Vascular Surgery patients *Special attention to sternal dressing Mandatory frequency Assess and evaluation, 4 days in a row The next week 3X week 2 times a week for 4 weeks 1 time a week for 5 weeks Schedule Heart and Vascular patients for full 60 day certification period Initial visit Review Open Heart Surgery Discharge Instructions (Sternal precautions, Activity, Elastic hose, Incision care, Driving, Incentive spirometry, Smoking, [place], Work and other) Need Betadine to paint incision Medication reconciliation Importance of follow up care/ check on appointments Make calendar record temperature daily When to call [facility] at Home nurse, review instructions, phone list Incentive Spirometry, demonstration Visit 1- Begin discharge instruction for patient family and/ or caregiver using teach back method- Signs and symptoms of infection Disease characteristics Medicines and side effects Foods and nutrition/ appetite Infection control/ hand washing/ hygiene Visit 2- Continue teaching Discharge instructions- include additional information on smoking cessation , sternal dressing (sternal vac) Visit 3- Continue teaching- Cough and deep breathing, incision monitoring. Choose my plate Visit 4- Continue teaching- Discuss limitations Discuss how they are feeling Discuss progress toward goals Remaining visits- continue teaching and monitoring For any questions please call : Tuesday 8am-5pm Heart & Vascular Surgery Office ( Dr. Warner & Dr. Villareal), After Hours / Nights (5pm -8am) Weekends and Holidays Please call [facility] ([facility]) Charge Nurse Incentive spirometry Q1 hr x 10, while awake, also use acapella device hourly whole awake Sternal Breast Bone Precautions: NO pushing or pulling, ( pt must use sternal pillow to support chest with all activities and with coughing ( takes up to 3 months breast bone to heal ) All females to wear sternal bra , launder as needed Daily incision care: ok to shower daily, no tub bath. Wash all incisions with liquid dial soap, clean wash cloth to each site, rinse and pat dry. Observe for any signs of infection, such as drainage which is dark yellow, hernandez, green or foul smelling. Immediately report to the surgeon any drainage from the chest incision, or legs, and for any abnormal drainage from the chest tube sites. Notify surgeon if any temp >101.5 degrees F. When specialty dressing removed/ or if you do not have one, continue to shower daily as above, then rinse and pat incision dry and paint with betadine daily x 5 days. Allow steri strips to fall off if you have any. Avoid lotions, creams, salves, oils, etc. for the first month Please see attached forms for additional instructions regarding post Open Heart specialty wound vacuum dressings. JIMMY or Prevena , Dressing to be removed by Nursing staff on _04/11/18 PT/INR in 2 days ( prescription will be given) ( ) (Tele: ) , F/U appointment: as per DC instructions: PCP in 2 weeks, CV surgeon 2 weeks, Cnc Set Up Operator 3-4 weeks For any questions regarding incisions/ dressing / meds / post op care or above Symptoms, Tuesday 8am-5pm Heart & Vascular Surgery Office ( Dr. Warner & Dr. Villareal), After Hours / Nights (5pm -8am) Weekends and Holidays Please call [facility] ([facility]) Charge Nurse - Case Management Consult Yes - Certification I have seen patient Nazanin Gee on 04/06/18. My clinical findings support the need for the requested home health care services because: Deconditioned with increased weakness I certify that my clinical findings support that this patient is homebound because: Post-op weakness (pt will need PT/INR 2-[address] Warner )
[2018-04-06] MEDS ORDERED: Calcium Chloride Inj 1 GM/10 ML Syringe IV.PUSH ONE (15:19)
[2018-04-06] MEDS ORDERED: Calcium Chloride Inj 1 GM/10 ML Syringe ONE (15:22)
[2018-04-06] MEDS ORDERED: DOPamine Inj 800 MG in Dextrose 5% in Water Inj 480 ML IV.CONT PRN ×2 (15:25)
--- NOTE | 2018-04-06 15:38 | P.CONCC ---
History of Present Illness Service: Critical care medicine Consult date: 04/06/18 Requesting Physician: Fermin Warner Reason for Consult: Bradycardia, hypotension Primary Care Provider: No Primary Care Physician Chief Complaint: Weakness History of Present Illness: This is a 77-year-old female. Date of admission 04/04/2018. Date of consultation 04/06/2018. Patient has no history of aortic stenosis, coronary disease, hypertension, hyperlipidemia, gastroesophageal reflux disease, hypothyroidism and depression. On 04/04, patient had a two-vessel CABG ZAPATA to LAD, reverse saphenous vein graft to OM of left circumflex with left EVH and CLARA excision. Without complications. Today, patient this morning was in atrial fibrillation with rapid ventricular response. Received 150 mg IV amiodarone and started on oral amiodarone 400 mg along with 25 mg of oral metoprolol tartrate.. She became bradycardic this afternoon and we are asked to evaluate the patient. She is received 2 g of calcium chloride and is currently been started on dopamine drip. Her heart rate and blood pressure immediately improved after the infusion of calcium chloride. In reviewing laboratories, potassium magnesium are within normal limits. She does have a new leukocytosis of 19,000. She denies shortness of breath. She is more confused likely due to hypoperfusion Review of Systems unobtainable due to mental status PMFSH - History History Provided By: Patient - Medical History Medical History: Medical History (Last Reviewed 04/06/18 @ 15:41 by J Carlos Schroeder MD) Adverse anesthesia outcome Afib Aortic stenosis Asthma CAD (coronary artery disease) CHF (congestive heart failure) HLD (hyperlipidemia) HTN (hypertension) Hiatal hernia Hypothyroid LBBB (left bundle branch block) Mitral regurgitation Myocardial infarct Sleep apnea TIA (transient ischemic attack) UTI (urinary tract infection) - Surgical History Surgical History: Surgical History (Last Updated 04/06/18 @ 15:41 by J Carlos Schroeder MD) History of coronary artery bypass graft - Social History I have reviewed the patient's Social History: Yes - Tobacco History Second Hand Smoke Exposure: No Smoking Status: Former smoker Tobacco Type: Cigarettes - Alcohol History How Often Do You Have a Drink Containing Alcohol: Monthly or less - Substance Use History Substance History: No History of Abuse - Travel History Recent Travel in the [place] Within the Last 8 Weeks: No Recent Travel Out of the Country Within the Last 8 Weeks: No Medications and Allergies Active Medications: Active Medications Hydrocodone Bitart/Acetaminophen ([place] 5/325) 1 tab PO Q3H PRN PRN Reason: PAIN SCALE 1 TO 5 Last Admin: 04/06/18 12:24 Dose: 1 tab Al Hydroxide/Mg Hydroxide (Milk Of Tono Liq) 30 ml PO DAILY [facility] Last Admin: 04/06/18 09:26 Dose: 30 ml Albuterol (Duoneb Neb (Prn)) 1 ampul NEB Q2HR NEB PRN PRN Reason: WHEEZING Albuterol (Duoneb Neb (Jose)) 1 ampul NEB Q6HR WHILE AWAKE NEB [facility] Stop: 04/07/18 13:59 Last Admin: 04/06/18 13:05 Dose: Not Given Aspirin (Aspirin Chew) 81 mg PO DAILY [facility] Last Admin: 04/06/18 09:27 Dose: 81 mg Bisacodyl (Dulcolax Supp) 10 mg RECTAL PRN PRN PRN Reason: SEE LABEL COMMENTS Calcium Chloride (Calcium Chloride Inj) 1 gm IV.PUSH ONCE ONE Stop: 04/06/18 15:20 Chlorhexidine Gluconate (Hibiclens 4% Topical) 1 applicatio TOPICAL SOD STRIPPER [facility] Stop: 04/10/18 06:12 Clopidogrel Bisulfate (Plavix) 75 mg PO DAILY [facility] Last Admin: 04/06/18 09:27 Dose: 75 mg Dextrose (D50w Vial) 50 ml IV.PUSH UNSCH PRN PRN Reason: PER HYPOGLYCEMIA PROTOCOL Docusate Sodium (Colace) 100 mg PO BID [facility] Last Admin: 04/06/18 09:26 Dose: 100 mg Glucagon (Glucagon Inj) 1 mg OTHER PRN PRN PRN Reason: For hypoglycemia Sodium Chloride (Ns Inj) 500 mls @ 30 mls/hr IV.SIG .Q10H [facility] Last Admin: 04/04/18 06:39 Dose: Not Given Dopamine HCl/Dextrose (Dopamine 800 Mg/500 Ml Premix) 800 mg in 500 mls @ 9.225 mls/hr IV.CONT TITRATE PRN; Protocol PRN Reason: Per Protocol Indomethacin (Indocin) 25 mg PO Q8HR [facility] Insulin Aspart (Novolog Insulin Correctional Sugar Inj) 0 unit SQ ACHS JOSE; Protocol Last Admin: 04/06/18 12:08 Dose: Not Given Levothyroxine Sodium (Synthroid) 100 mcg PO DAILY@0600 [facility] Last Admin: 04/06/18 05:13 Dose: 100 mcg Metoprolol Tartrate (Lopressor) 12.5 mg PO SOD STRIPPER [facility] Stop: 04/10/18 06:13 Last Admin: 04/06/18 09:27 Dose: 12.5 mg Metoprolol Tartrate (Lopressor) 25 mg PO BID [facility] Last Admin: 04/06/18 09:29 Dose: 25 mg Miscellaneous (Pill Splitter) 1 each OTHER UNSCH PRN PRN Reason: SEE LABEL COMMENTS Multivitamins/Minerals (Theragran-M) 1 tab PO DAILY [facility] Last Admin: 04/06/18 09:27 Dose: 1 tab Mupirocin (Bactroban 2% Nasal Oint) 1 applicatio EACH NARE BID [facility] Stop: 04/08/18 06:13 Last Admin: 04/06/18 09:28 Dose: 1 applicatio Ondansetron HCl (Zofran Inj) 4 mg IV.PUSH Q6H PRN PRN Reason: NAUSEA OR VOMITING Last Admin: 04/06/18 12:23 Dose: 4 mg Pantoprazole Sodium (Protonix) 40 mg PO DAILY@06 [facility] Last Admin: 04/06/18 05:13 Dose: 40 mg Paroxetine HCl (Paxil) 10 mg PO DAILY [facility] Last Admin: 04/06/18 09:26 Dose: 10 mg Patient Medication Teaching (Coumadin Booklet) 1 each OTHER ONCE ONE Stop: 04/06/18 16:01 Patient's Own: ( Rosuvastatin [ Rosuvastatin] 20 Mg) 0 each PO DAILY [facility] Polyethylene Glycol (Miralax) 17 gm PO DAILY [facility] Last Admin: 04/06/18 09:28 Dose: 17 gm Sennosides (Senokot) 8.6 mg PO HS [facility] Last Admin: 04/05/18 21:29 Dose: 8.6 mg Sodium Biphosphate/Sodium Phosphate (Fleets Enema (Adult)) 118 ml RECTAL UNSCH PRN PRN Reason: SEE LABEL COMMENTS Sodium Chloride (Ns Flush) 2 ml IV.FLUSH BID [facility] Last Admin: 04/06/18 09:29 Dose: 2 ml Sodium Chloride (Ns Flush) 2 ml IV.FLUSH PRN PRN PRN Reason: FLUSH AFTER USING IV ACCESS Terbutaline Sulfate (Brethine Inj) 1 mg SQ ONCE PRN PRN Reason: Extravasation Verapamil HCl (Isoptin Sr) 180 mg PO DAILY [facility] Last Admin: 04/06/18 09:27 Dose: 180 mg Allergies Allergy/AdvReac Type Severity Reaction Status Date / Time atorvastatin AdvReac Hypotension Verified 04/04/18 06:21 simvastatin AdvReac Hypotension Verified 04/04/18 06:21 Home Medications Medication Instructions Recorded Confirmed Type ciprofloxacin HCl [Cipro] 500 mg PO Q12H 02/16/18 04/04/18 History coenzyme Q10 [Co Q-10] 10 mg PO TID 02/16/18 04/04/18 History furosemide 40 mg PO BID 02/16/18 04/04/18 History losartan 50 mg PO DAILY 02/16/18 04/04/18 History pantoprazole 40 mg PO DAILY 02/16/18 04/04/18 History paroxetine HCl 10 mg PO DAILY 02/16/18 04/04/18 History potassium chloride [K-Tab] 10 meq PO DAILY 02/16/18 04/04/18 History ranitidine HCl 150 mg PO BID 02/16/18 04/04/18 History rosuvastatin 20 mg PO DAILY 02/16/18 04/04/18 History verapamil 180 mg PO DAILY 02/16/18 04/04/18 History warfarin 5 mg PO DAILY 02/16/18 04/04/18 History aspirin 81 mg PO DAILY 03/09/18 04/04/18 History nitroglycerin 0.4 mg SUBLINGUAL Q5-15M PRN 03/09/18 04/04/18 History Physical Exam Vital signs: Vital Signs 04/05/18 16:02 04/05/18 16:16 04/05/18 17:11 Temperature 98.9 F Pulse Rate 81 80 79 Respiratory Rate 18 Blood Pressure 134/60 Pulse Oximetry 04/05/18 18:26 04/05/18 19:00 04/05/18 20:00 Temperature 98.2 F Pulse Rate 79 81 78 Respiratory Rate 16 Blood Pressure 123/55 L Pulse Oximetry 96 04/05/18 20:52 04/05/18 20:55 04/05/18 21:00 Temperature Pulse Rate 78 78 Respiratory Rate 18 Blood Pressure Pulse Oximetry 97 04/05/18 22:00 04/05/18 23:00 04/06/18 00:00 Temperature 98.7 F Pulse Rate 82 75 74 Respiratory Rate 16 Blood Pressure 114/70 Pulse Oximetry 96 04/06/18 01:00 04/06/18 02:00 04/06/18 03:00 Temperature 98.2 F Pulse Rate 80 108 H 118 H Respiratory Rate 16 Blood Pressure 117/67 Pulse Oximetry 97 04/06/18 04:00 04/06/18 05:00 04/06/18 06:00 Temperature Pulse Rate 122 H 108 H 112 H Respiratory Rate Blood Pressure Pulse Oximetry 04/06/18 07:00 04/06/18 08:00 04/06/18 09:00 Temperature 98.3 F Pulse Rate 120 H 112 H 120 H Respiratory Rate 18 Blood Pressure 122/59 L Pulse Oximetry 94 L 04/06/18 10:00 04/06/18 10:25 04/06/18 10:46 Temperature Pulse Rate 126 H 125 H Respiratory Rate Blood Pressure Pulse Oximetry 96 04/06/18 11:00 04/06/18 12:00 04/06/18 13:00 Temperature 98.3 F Pulse Rate 78 78 81 Respiratory Rate 18 Blood Pressure 111/68 Pulse Oximetry 96 Intake & Output 04/05/18 04/06/18 04/06/18 18:59 06:59 18:59 Intake Total 800 / 800 393 / 393 100 / 100 Output Total 200 / 200 360 / 360 Balance 600 / 600 33 / 33 100 / 100 Weight 82 kg Intake: IV 200 / 200 153 / 153 100 / 100 Cordarone Inj 150 MG In D5W Inj 103 / 103 100 / 100 97 ML @ 100 mls/hr IV.SIG ONCE ONE Rx#:[id number] Magnesium Sulfate Inj 2 GM In 100 / 100 NS Inj 96 ML @ 50 mls/hr IV.SIG PRN PRN Rx#:[id number] Ancef 2 GM Premix Inj 2 gm In 100 / 100 50 / 50 50 ml @ 100 mls/hr IV.SIG Q8H JOSE Rx#:[id number] Oral 600 / 600 240 / 240 Output: Urine 150 / 150 350 / 350 Chest Tube Drainage 50 / 50 10 / 10 #1Y and #2Y 50 / 50 10 / 10 - Constitutional mild distress - Routine HEENT Exam Head: Present: normocephalic, atraumatic Eye: Present: EOMI, PERRL, normal accommodation, conjunctival icterus ENT: Present: mucous membranes moist - Routine Neck Exam Present: supple, full ROM. Absent: JVD, carotid bruit - Routine Respiratory Exam Present: decreased breath sounds, rhonchi, diminished air movement. Absent: accessory muscle use - Routine Cardiovascular Exam Present: S1, S2, rubs, bradycardia, irregularly irregular - Routine Abdominal Exam Present: soft, normoactive bowel sounds - Routine Exam Patient deferred: external exam, groin exam, perineal exam - Routine Extremities Exam Present: edema. Absent: cyanosis, clubbing - Routine Skin Exam Present: intact - Routine Neurological Exam Present: alert, oriented X3, CN II-XII intact. Absent: sensory deficit - Detailed Neurological Exam: Coma Scale Eye Opening: Spontaneous Verbal Response: Oriented Motor Response: Obey commands [place] Coma Scale Total: 15 - Routine Psychiatric Exam Present: unable to assess - Urinary Catheter Management Indwelling Temp Sensing Catheter Cath placed during this visit: yes Urethral indwelling: No Reason for continuing: Hourly intake/output Insertion date: 04/04/18 Insertion time: 07:52 Septic Shock Reassessment Septic shock perfusion: reassessment completed Assessment and Plan - Assessment and Plan Plan: Neuro/Psych: Depressive disorder NOS History of TIA Currently on paroxetine 10 mg daily for depression. Continue aspirin as above. Hydrocodone/acetaminophen 5/325 1 tablet every 3 hours as needed pain 1 through 5 CV: Postoperative day #2 CABG x2 ZAPATA to LAD, reverse saphenous vein graft to OM with left EVH and CLARA excision -Dr. Warner Atrial fibrillation currently bradycardic Essential hypertension by history Hyperlipidemia Coronary artery disease status post PTCA left anterior descending proximal Cardiac catheterization 417 revealed left ear 0.48 cm area. EF 55-60%. Moderate aortic regurgitation. On rosuvastatin 10 mg daily at home. Noted allergies to atorvastatin simvastatin Holding losartan 50 mg daily and verapamil 180 mg daily while hypotensive. At home on furosemide 40 mg twice daily and potassium chloride 10 mg daily Continue aspirin 81 mg daily and clopidogrel 75 mg daily Received 2 g calcium chloride IV. Currently on dopamine currently at 5 mg/kg/min. Monitor closely intensive care unit. On Indocin 25 mg every 8 hours for presumed pericarditis per CT surgery Resp: Obstructive sleep apnea Nasal cannula to maintain saturations greater than equal to 90% Incentive spirometry while awake Check chest x-ray stat with ABG As needed albuterol/ipratropium aerosols every 2 hours as needed GI: Diverticulosis Gastroesophageal reflux disease Hiatal hernia Advance diet per CT surgery Pantoprazole for GI prophylaxis Docusate sodium/senna 1 tablet twice daily for hours along with polythene glycol 17 g daily : Straight catheterization every 6 hours as needed Endo: Hypothyroidism Acute hyperglycemia Currently on levothyroxine 100 mcg p.o. daily recheck TSH in a.m. Sliding scale insulin with aspart insulin Renal: Acute kidney injury Stat BMP pending. Monitor urine output Accurate I's and O's Heme: Leukocytosis Normocytic anemia Chronic warfarin use Stat H&H pending. Monitor CBC daily. Follow trends. Warfarin per CT surgery ID: Postoperative antibiotics with cefazolin completed MSK: Elevated BMI Osteoporosis/osteoarthritis Lumbar radiculopathy Physical therapy evaluate and treat FEN: Replace electrolytes as indicated Access -Utilize peripheral IV. Central line left subclavian cordis with dual-lumen placed 04/04 Prophylaxis -GI -pantoprazole -DVT-SCD/pharmacological prophylaxis when okay with CT surgery Level 3 consult
[2018-04-06] MEDS: Indomethacin 25 MG Capsule PO SCH ×2 (16:01→21:48)
[2018-04-06 16:23] LABS: ABG Base Excess -3.3 mmol/L (-2-2); ABG PCO2 40 mmHg (38-42); ABG PO2 62 mmHG (61-120)
[2018-04-06] MEDS ORDERED: Calcium Chloride Inj 1 GM in Sodium Chlor 0.9% Inj 100 ML IV.SIG ONE (16:30)
--- NOTE | 2018-04-06 16:37 | XR ---
EXAM DATE: 04/06/2018 4:31 PM EDT AGE/SEX: 77 years / Female INDICATIONS: Short of breath CLINICAL DATA: This is the patient's subsequent encounter. Patient reports that signs and symptoms h ave been present for 4 - 6 days and indicates a pain score of Nonresponsive. MEDICAL/SURGICAL HISTORY: . Congestive heart failure. Chronic obstructive pulmonary disease. Hy pertension. Aortic stenosis. CABG. COMPARISON: [facility], CHEST 1V SINGLE AP, 04/05/2018. . FINDINGS: There is a huge hiatal hernia in the patient's stomach is basically completely separate the patient's chest completely filled with gas. No definite pneumothorax is seen for technique. Left subclavian line is present with tip overlapping the expected region of the SVC. Interstitial pr ominence is seen in both lungs may represent mild case of pulmonary edema. Slight bilateral lung base atelectasis and/or infiltrate is seen. Small left pleural effusion may al so be present . The rest of the examination has not changed. CONCLUSION: 1. Huge hiatal hernia and the entire stomach is basically said the chest filled with gas not present previously. 2. Slight bilateral lung base atelectasis and/or infiltrate is seen, mild pulmonary edema is also oconnor spected. Electronically signed by: Alli Ghosh MD 04/06/2018 4:35 PM EDT
[2018-04-06 16:44] LABS: Hematocrit 30.6 % (35.0-46.0); Hemoglobin 9.9 gm/dL (11.6-15.3)
[2018-04-06 17:11] LABS: Calcium 9.8 mg/dL (8.5-10.1); Potassium 4.8 meq/L (3.5-5.1)
--- NOTE | 2018-04-06 17:32 | P.PCN ---
Date of procedure: 04/06/18 Pre-op diagnosis: Acute respiratory failure/hypertension Post-op diagnosis: same Procedure: DATE: 04/06/2018 PROCEDURE: Right femoral arterial catheter placement INDICATION: Hypertension DETAILS OF PROCEDURE The patient was placed in supine position. The skin was cleansed with Chloraprep. Additional barrier precautions included large sterile drape, sterile gloves, sterile gown, face mask, and hat. 1% lidocaine was used for local anesthesia. Under direct ultrasound guidance and on the second attempt, the artery was accessed with an introducer needle. The guide wire was advanced. Using Seldinger technique 20 gauge arterial catheter was placed. The guide wire was removed. The catheter was connected to a transducer line and flushed with saline. The video monitor displayed normal arterial wave forms. The catheter was secured with 2-0 silk. A sterile dressing with antibiotic disc was applied. ESTIMATED BLOOD LOSS: minimal COMPLICATIONS: None
[2018-04-06 19:26] LABS: Thyroid Stimulating Hormone 0.727 uIU/mL (0.358-3.740)
[2018-04-06] MEDS ORDERED: Amiodarone 200 MG Tablet PO SCH ×2 (21:00)
[2018-04-07] MEDS: Melatonin 5 MG Tablet PO SCH ×2 (01:11→21:52)
[2018-04-07 05:05] LABS: Baso # (Auto) 0.1 th/mm3 (0.0-0.2); Baso % (Auto) 0.5 % (0.0-2.0); Hematocrit 30.2 % (35.0-46.0); Hemoglobin 10.1 gm/dL (11.6-15.3); Lymph % (Auto) 5.3 % (9.0-44.0); Mean Corpuscular HGB Conc 33.4 % (32.0-36.0); Mean Corpuscular Hemoglobin 30.8 pg (27.0-34.0); Mean Corpuscular Volume 92.3 fL (80.0-100.0); Mean Platelet Volume 8.8 fL (7.0-11.0); Mono # (Auto) 1.8 th/mm3 (0.0-0.9); Mono % (Auto) 9.5 % (0.0-8.0); Neut # (Auto) 16.2 th/mm3 (1.8-7.7); Neut % (Auto) 84.7 % (16.0-70.0); Platelet Count 267 th/mm3 (150-450); Red Blood Count 3.27 mil/mm3 (4.00-5.30); Red Cell Distribution Width 13.7 % (11.6-17.2); White Blood Count 19.1 th/mm3 (4.0-11.0)
[2018-04-07] MEDS: Levothyroxine 100 MCG Tablet PO SCH (05:09)
[2018-04-07] MEDS: Indomethacin 25 MG Capsule PO SCH (05:09)
[2018-04-07 05:31] LABS: Alanine Aminotransferase 43 U/L (10-53); Albumin 2.8 g/dL (3.4-5.0); Anion Gap 8 meq/L (5-15); Aspartate Aminotransferase 73 U/L (15-37); Blood Urea Nitrogen 42 mg/dL (7-18); Calcium 9.6 mg/dL (8.5-10.1); Carbon Dioxide 28.3 meq/L (21.0-32.0); Chloride 106 meq/L (98-107); Glomerular Filtration Rate 38 mL/min (>89); Glucose,Random 90 mg/dL (74-106); Magnesium 2.8 mg/dL (1.5-2.5); Phosphorus 4.9 mg/dL (2.5-4.9); Potassium 4.6 meq/L (3.5-5.1); Sodium 142 meq/L (136-145)
[2018-04-07 05:34] LABS: Alkaline Phosphatase 57 U/L (45-117); Total Protein 5.8 g/dL (6.4-8.2)
[2018-04-07 05:41] LABS: ABG Base Excess 0.2 mmol/L (-2-2); ABG PCO2 39 mmHg (38-42); ABG PO2 151 mmHG (61-120)
--- NOTE | 2018-04-07 05:45 | XR ---
EXAM DATE: 04/07/2018 5:32 AM EDT AGE/SEX: 77 years / Female INDICATIONS: Shortness of breath CLINICAL DATA: This is the patient's subsequent encounter. Patient reports that signs and symptoms h ave been present for 4 - 6 days and indicates a pain score of Nonresponsive. MEDICAL/SURGICAL HISTORY: . Congestive heart failure. Chronic obstructive pulmonary disease. Hy pertension. Aortic stenosis. CABG. COMPARISON: [facility] [place], CHEST 1V SINGLE AP, 04/06/2018. . FINDINGS: The cardiac silhouette is enlarged in transverse diameter. Median sternotomy wires are present. A lar ge hiatal hernia is present. There is resolving pulmonary edema. There is left lower lobe atelectasi s versus pneumonia. A small left sided effusion is present. CONCLUSION: Resolving pulmonary edema. Small left effusion Electronically signed by: Guido Garzon MD 04/07/2018 5:43 AM EDT
[2018-04-07 07:13] LABS: INR 1.6 Ratio; Prothrombin Time 15.7 sec (9.8-11.6)
[2018-04-07] MEDS: Insulin NovoLOG Aspart Correctional Sugar Inj SQ SCH ×4 (07:36→20:48)
--- NOTE | 2018-04-07 08:29 | XR ---
EXAM DATE: 04/07/2018 8:10 AM EDT AGE/SEX: 77 years / Female INDICATIONS: Ileus CLINICAL DATA: This is the patient's initial encounter. Patient reports that signs and symptoms have been present for 3 days and indicates a pain score of 2/10. MEDICAL/SURGICAL HISTORY: . Congestive heart failure. Chronic obstructive pulmonary disease. H ypertension. Aortic stenosis. . CABG COMPARISON: No prior exams available for comparison. FINDINGS: Moderate vascular calcic locations are noted. Scattered small and large bowel gas is evident without significant distention. There is no definite free air Minimal consolidative changes left base CONCLUSION: Nonspecific bowel gas pattern with scattered small and large bowel gas. Electronically signed by: Merlin Valenzuela MD 04/07/2018 8:27 AM EDT
[2018-04-07] MEDS: Mupirocin 2% Nasal Oint Topical Syringe EACH NARE SCH ×2 (08:37→20:48)
[2018-04-07] MEDS: Polyethylene Glycol 3350 17 GM Packet PO SCH (08:38)
[2018-04-07] MEDS: Multivitamin/Minerals Therapeutic Tablet PO SCH (08:38)
[2018-04-07] MEDS: Docusate Sodium 100 MG Capsule PO SCH ×2 (08:38→20:48)
--- NOTE | 2018-04-07 09:58 | P.PNCV ---
- Note Subjective/Hospital Course: 77/ female initially seen on 03/13/18 in [facility] office with Dr Warner, hx of progressive SOB over past few months . Known hx of CAD previous PCI's , ECHO revealed severe . Cardiac cath revealed multivessel disease PMH: Afib, Aortic stenosis, Asthma, CAD (coronary artery disease), CHF ( congestive heart failure), HLD (hyperlipidemia), HTN (hypertension) Hiatal hernia, Hypothyroid, LBBB (left bundle branch block), Mitral regurgitation, Myocardial infarct, Sleep apnea, TIA (transient ischemic attack) UTI (urinary tract infection) 04/04 pt electively admitted for surgery PREPROCEDURE DIAGNOSES 1. Severe Multi Vessel Coronary Artery Disease. 2. Severe aortic stenosis 3. Atrial fibrillation status post ablation POSTPROCEDURE DIAGNOSES 1. Severe Multi Vessel Coronary Artery Disease. 2. Severe aortic stenosis 3. Atrial fibrillation status post ablation 4. Heavily calcified ascending aorta SURGICAL PROCEDURE 1. Clampless off-pump Coronary Artery Bypass Grafting x 2 with Left Internal Mammary Artery (ZAPATA) to Left Anterior Descending (LAD), reverse saphenous vein graft to obtuse Marginal branch of the left Circumflex artery 2. Left leg Endoscopic Vein [place] 3. Left atrial appendage excision pt extubated after surgery crystalloid 2300cc, 1500cc EBL, 750cc cell saver 04/05 pt up in chair ECG with some mild global st elevation / pericarditis + rub, no pressors , stable for transfer, resume BB will need to resume coumadin when chest tubes out 04/06 chest tube dc without difficultly pt went into afib RVR last night and this am received 2nd bolus of amiodarone / po amiodarone increased will resume coumadin / this pm goal 2.5 / followed by Dr Menendez at home 04/07 pt was transferred back to CVICU yesterday became bradycardic / hypotensive / despite IV fluids calcium chloride / required Dopamine gtt / remains in afib rate now 90's , BP improved discussed with Dr Warner/ will consult cardiology regarding cardiac meds start lovenox and coumadin/ dc when INR > 2.0 dc fem line / consult PT / observe in CVICU today Objective: Vital Signs - 24 hr 04/06/18 10:00 04/06/18 10:25 04/06/18 10:46 Temperature Pulse Rate 126 H 125 H Respiratory Rate Blood Pressure Pulse Oximetry 96 11/01/18 11:00 04/06/18 12:00 04/06/18 13:00 Temperature 98.3 F Pulse Rate 78 78 81 Respiratory Rate 18 Blood Pressure 111/68 Pulse Oximetry 96 04/06/18 14:00 04/06/18 15:00 04/06/18 16:00 Temperature 98.4 F Pulse Rate 63 53 L 43 L Respiratory Rate 16 Blood Pressure 84/53 L Pulse Oximetry 93 L 04/06/18 16:15 04/06/18 16:25 04/06/18 19:00 Temperature 98.0 F 97.9 F Pulse Rate 46 L 53 L Respiratory Rate 14 20 Blood Pressure 93/42 L Pulse Oximetry 92 L 93 L 95 04/06/18 20:00 04/06/18 21:34 04/06/18 23:00 Temperature 98.8 F Pulse Rate 69 86 Respiratory Rate 14 18 Blood Pressure 173/96 H Pulse Oximetry 98 96 99 04/07/18 03:00 04/07/18 07:00 04/07/18 09:02 Temperature 98.8 F 98.6 F Pulse Rate 109 H 99 H Respiratory Rate 18 18 Blood Pressure 142/78 H 101/50 L Pulse Oximetry 98 98 98 GENERAL: more awake and alert/ sleepy / nausea improved SKIN: Warm and dry. prevena dressing to chest / incision intact to left leg HEAD: Normocephalic. EYES: No scleral icterus. No injection or drainage. NECK: Supple, trachea midline. No JVD or lymphadenopathy. CARDIOVASCULAR: irregular rate and rhythm / 3/6 sm faint rub RESPIRATORY: diminished in bases, few crackles Breath sounds equal bilaterally. GASTROINTESTINAL: Abdomen soft, non-tender, nondistended, + bowel sounds MUSCULOSKELETAL: No cyanosis, or edema. BACK: Nontender without obvious deformity. No CVA tenderness. Labs: Laboratory Results - last 12 hr 04/04/18 04/06/18 04/07/18 06:25 23:59 04:45 WBC 19.1 H RBC 3.27 L Hgb 10.1 L Hct 30.2 L MCV 92.3 MCH 30.8 MCHC 33.4 RDW 13.7 Plt Count 267 MPV 8.8 Neut % (Auto) 84.7 H Lymph % (Auto) 5.3 L [place] % (Auto) 9.5 H Eos % (Auto) 0.0 Baso % (Auto) 0.5 Neut # (Auto) 16.2 H Lymph # (Auto) 1.0 [place] # (Auto) 1.8 H Eos # (Auto) 0.0 Baso # (Auto) 0.1 WBC Differential . Differential Comment Auto diff final PT INR Puncture Site Patient Temperature O2 Saturation ABG pH ABG pCO2 ABG pO2 ABG HCO3 ABG O2 Content ABG Base Excess ABG Methemoglobin Adrien Test Hemoglobin Carboxyhemoglobin O2 Delivery Device Liter Flow Critical Value Sodium Potassium Chloride Carbon Dioxide Anion Gap BUN Creatinine Estimated GFR Random Glucose Lactic Acid 1.1 Calcium Phosphorus Magnesium Total Bilirubin AST ALT Alkaline Phosphatase Total Protein Albumin MTS Gel Crossmatch See Detail 04/07/18 04/07/18 04/07/18 04:45 04:45 05:20 WBC RBC Hgb Hct MCV MCH MCHC RDW Plt Count MPV Neut % (Auto) Lymph % (Auto) [place] % (Auto) Eos % (Auto) Baso % (Auto) Neut # (Auto) Lymph # (Auto) [place] # (Auto) Eos # (Auto) Baso # (Auto) WBC Differential Differential Comment PT INR Puncture Site Art line Patient Temperature 98.6 O2 Saturation 97 ABG pH 7.41 ABG pCO2 39 ABG pO2 151 H ABG HCO3 24 ABG O2 Content 13.8 ABG Base Excess 0.2 ABG Methemoglobin 1.4 Adrien Test Present Hemoglobin 9.9 L Carboxyhemoglobin 0.8 O2 Delivery Device Nasal cannula Liter Flow 6.00 Critical Value No Sodium 142 Potassium 4.6 Chloride 106 Carbon Dioxide 28.3 Anion Gap 8 BUN 42 H Creatinine 1.36 H Estimated GFR 38 L Random Glucose 90 Lactic Acid 1.0 Calcium 9.6 Phosphorus 4.9 Magnesium 2.8 H Total Bilirubin 0.5 AST 73 H ALT 43 Alkaline Phosphatase 57 Total Protein 5.8 L Albumin 2.8 L MTS Gel Crossmatch 04/07/18 06:25 WBC RBC Hgb Hct MCV MCH MCHC RDW Plt Count MPV Neut % (Auto) Lymph % (Auto) [place] % (Auto) Eos % (Auto) Baso % (Auto) Neut # (Auto) Lymph # (Auto) [place] # (Auto) Eos # (Auto) Baso # (Auto) WBC Differential Differential Comment PT 15.7 H INR 1.6 Puncture Site Patient Temperature O2 Saturation ABG pH ABG pCO2 ABG pO2 ABG HCO3 ABG O2 Content ABG Base Excess ABG Methemoglobin Adrien Test Hemoglobin Carboxyhemoglobin O2 Delivery Device Liter Flow Critical Value Sodium Potassium Chloride Carbon Dioxide Anion Gap BUN Creatinine Estimated GFR Random Glucose Lactic Acid Calcium Phosphorus Magnesium Total Bilirubin AST ALT Alkaline Phosphatase Total Protein Albumin MTS Gel Crossmatch Result Diagrams: 04/07/18 04:45 04/07/18 04:45 Telemetry: afib - Plan (1) Severe aortic stenosis Plan: will need planned TAVR after discharge (4) Atrial fibrillation Plan: s/p atrial appendage excision start lovenox / dc when INR>2.0 resume Coumadin consult cardiology regarding cardiac meds for rate control (5) COPD (chronic obstructive pulmonary disease) Plan: nebs ezpap and acapella (6) S/P CABG (coronary artery bypass graft) Plan: ASA, resume home med crestor pulm toileting , nebs ezpap, acapella OOB ambulate eval for rehab at discharge
--- NOTE | 2018-04-07 10:05 | P.PNCC ---
Subjective Subjective Remarks/Hospital Course: This is a 77-year-old female. Date of admission 04/04/2018. Date of consultation 04/06/2018. Patient has no history of aortic stenosis, coronary disease, hypertension, hyperlipidemia, gastroesophageal reflux disease, hypothyroidism and depression. On 04/04, patient had a two-vessel CABG ZAPATA to LAD, reverse saphenous vein graft to OM of left circumflex with left EVH and CLARA excision. Without complications. Today, patient this morning was in atrial fibrillation with rapid ventricular response. Received 150 mg IV amiodarone and started on oral amiodarone 400 mg along with 25 mg of oral metoprolol tartrate.. She became bradycardic this afternoon and we are asked to evaluate the patient. She is received 2 g of calcium chloride and is currently been started on dopamine drip. Her heart rate and blood pressure immediately improved after the infusion of calcium chloride. In reviewing laboratories, potassium magnesium are within normal limits. She does have a new leukocytosis of 19,000. She denies shortness of breath. She is more confused likely due to hypoperfusion 04/07 Patien is lying in bed in NAD. Feeling nauseas, denies any abdominal pain. Objective Vital Signs / I&O: Vital Signs 04/06/18 10:25 04/06/18 10:46 04/06/18 11:00 Temperature 98.3 F Pulse Rate 125 H 78 Respiratory Rate 18 Blood Pressure 111/68 Pulse Oximetry 96 96 04/06/18 12:00 04/06/18 13:00 04/06/18 14:00 Temperature Pulse Rate 78 81 63 Respiratory Rate Blood Pressure Pulse Oximetry 04/06/18 15:00 04/06/18 16:00 04/06/18 16:15 Temperature 98.4 F 98.0 F Pulse Rate 53 L 43 L 46 L Respiratory Rate 16 14 Blood Pressure 84/53 L 93/42 L Pulse Oximetry 93 L 92 L 04/06/18 16:25 04/06/18 19:00 04/06/18 20:00 Temperature 97.9 F Pulse Rate 53 L Respiratory Rate 20 Blood Pressure Pulse Oximetry 93 L 95 98 04/06/18 21:34 04/06/18 23:00 04/07/18 03:00 Temperature 98.8 F 98.8 F Pulse Rate 69 86 109 H Respiratory Rate 14 18 18 Blood Pressure 173/96 H 142/78 H Pulse Oximetry 96 99 98 04/07/18 07:00 04/07/18 09:02 Temperature 98.6 F Pulse Rate 99 H Respiratory Rate 18 Blood Pressure 101/50 L Pulse Oximetry 98 98 Intake & Output 04/06/18 04/07/18 04/07/18 18:59 06:59 18:59 Intake Total 100 / 100 350 / 350 Output Total 780 / 780 415 / 415 Balance -680 / -680 -65 / -65 Weight 86 kg Intake: IV 100 / 100 110 / 110 Cordarone Inj 150 MG In D5W Inj 100 / 100 97 ML @ 100 mls/hr IV.SIG ONCE ONE Rx#:[id number] Calcium Chloride Inj 1 GM In NS 110 / 110 Inj 100 ML @ 110 mls/hr IV.SIG ONCE ONE Rx#:[id number] Oral 240 / 240 Output: Urine 780 / 780 300 / 300 Emesis 115 / 115 Other: # Incontinent Voids 1 # Bowel Movements 0 # Emeses 2 Result Diagrams: 04/07/18 04:45 04/07/18 04:45 Other Results: Laboratory Results - last 12 hr 04/04/18 04/06/18 04/07/18 06:25 23:59 04:45 WBC 19.1 H RBC 3.27 L Hgb 10.1 L Hct 30.2 L MCV 92.3 MCH 30.8 MCHC 33.4 RDW 13.7 Plt Count 267 MPV 8.8 Neut % (Auto) 84.7 H Lymph % (Auto) 5.3 L Kenedy % (Auto) 9.5 H Eos % (Auto) 0.0 Baso % (Auto) 0.5 Neut # (Auto) 16.2 H Lymph # (Auto) 1.0 Kenedy # (Auto) 1.8 H Eos # (Auto) 0.0 Baso # (Auto) 0.1 WBC Differential . Differential Comment Auto diff final PT INR Puncture Site Patient Temperature O2 Saturation ABG pH ABG pCO2 ABG pO2 ABG HCO3 ABG O2 Content ABG Base Excess ABG Methemoglobin Adrien Test Hemoglobin Carboxyhemoglobin O2 Delivery Device Liter Flow Critical Value Sodium Potassium Chloride Carbon Dioxide Anion Gap BUN Creatinine Estimated GFR Random Glucose Lactic Acid 1.1 Calcium Phosphorus Magnesium Total Bilirubin AST ALT Alkaline Phosphatase Total Protein Albumin MTS Gel Crossmatch See Detail 11/07/2404/07/18 04/07/18 04:45 04:45 05:20 WBC RBC Hgb Hct MCV MCH MCHC RDW Plt Count MPV Neut % (Auto) Lymph % (Auto) Kenedy % (Auto) Eos % (Auto) Baso % (Auto) Neut # (Auto) Lymph # (Auto) Kenedy # (Auto) Eos # (Auto) Baso # (Auto) WBC Differential Differential Comment PT INR Puncture Site Art line Patient Temperature 98.6 O2 Saturation 97 ABG pH 7.41 ABG pCO2 39 ABG pO2 151 H ABG HCO3 24 ABG O2 Content 13.8 ABG Base Excess 0.2 ABG Methemoglobin 1.4 Adrien Test Present Hemoglobin 9.9 L Carboxyhemoglobin 0.8 O2 Delivery Device Nasal cannula Liter Flow 6.00 Critical Value No Sodium 142 Potassium 4.6 Chloride 106 Carbon Dioxide 28.3 Anion Gap 8 BUN 42 H Creatinine 1.36 H Estimated GFR 38 L Random Glucose 90 Lactic Acid 1.0 Calcium 9.6 Phosphorus 4.9 Magnesium 2.8 H Total Bilirubin 0.5 AST 73 H ALT 43 Alkaline Phosphatase 57 Total Protein 5.8 L Albumin 2.8 L MTS Gel Crossmatch 04/07/18 06:25 WBC RBC Hgb Hct MCV MCH MCHC RDW Plt Count MPV Neut % (Auto) Lymph % (Auto) K[place]y % (Auto) Eos % (Auto) Baso % (Auto) Neut # (Auto) Lymph # (Auto) K[place]y # (Auto) Eos # (Auto) Baso # (Auto) WBC Differential Differential Comment PT 15.7 H INR 1.6 Puncture Site Patient Temperature O2 Saturation ABG pH ABG pCO2 ABG pO2 ABG HCO3 ABG O2 Content ABG Base Excess ABG Methemoglobin Adrien Test Hemoglobin Carboxyhemoglobin O2 Delivery Device Liter Flow Critical Value Sodium Potassium Chloride Carbon Dioxide Anion Gap BUN Creatinine Estimated GFR Random Glucose Lactic Acid Calcium Phosphorus Magnesium Total Bilirubin AST ALT Alkaline Phosphatase Total Protein Albumin MTS Gel Crossmatch Imaging: Abdomen X-Ray 04/07/18 00:00 CONCLUSION: Nonspecific bowel gas pattern with scattered small and large bowel gas. Chest X-Ray 04/07/18 06:00 CONCLUSION: Resolving pulmonary edema. Small left effusion Objective Remarks: GENERAL: Patient is 77 yo lying in bed in NAD SKIN: Warm and dry. HEAD: Normocephalic. EYES: No scleral icterus. No injection or drainage. NECK: Supple, trachea midline. No JVD or lymphadenopathy. CARDIOVASCULAR: Regular rate and rhythm without murmurs, gallops, or rubs. RESPIRATORY: Breath sounds equal bilaterally. No accessory muscle use. GASTROINTESTINAL: Abdomen soft, non-tender, nondistended. MUSCULOSKELETAL: No cyanosis, or edema. Neuro: Awake and alert. Assessment and Plan - Assessment and Plan Plan: Neuro/Psych: Depressive disorder NOS History of TIA Currently on paroxetine 10 mg daily for depression. Continue aspirin as above. Hydrocodone/acetaminophen 5/325 1 tablet every 3 hours as needed pain 1 through 5 CV: Postoperative CABG x2 ZAPATA to LAD, reverse saphenous vein graft to OM with left EVH and CLARA excision -Dr. Warner Atrial fibrillation currently bradycardic Essential hypertension by history Hyperlipidemia Coronary artery disease status post PTCA left anterior descending proximal Cardiac catheterization 417 revealed left ear 0.48 cm area. EF 55-60%. Moderate aortic regurgitation. On rosuvastatin 10 mg daily at home. Noted allergies to atorvastatin simvastatin At home on furosemide 40 mg twice daily and potassium chloride 10 mg daily Continue aspirin 81 mg daily and clopidogrel 75 mg daily Resp: Obstructive sleep apnea Continue with oxygen keep sats> 92% Incentive spirometry while awake Bronchodilators CXR today-resolving pulm edema GI: Diverticulosis Gastroesophageal reflux disease Hiatal hernia Advance diet per CT surgery Pantoprazole for GI prophylaxis Docusate sodium/senna 1 tablet twice daily for hours along with polythene glycol 17 g daily KUB abdomen: Nonspecific bowel gas pattern with scattered small and large bowel gas. Endo: Hypothyroidism Acute hyperglycemia Currently on levothyroxine 100 mcg p.o. daily TSH:0.72 Sliding scale insulin with aspart insulin Renal: Acute kidney injury Monitor renal function, I/O's, electrolytes replacement as needed. Renal function is improving with Cr: 1.36 from 1.72 Heme: Leukocytosis Normocytic anemia Chronic warfarin use Monitor CBC, Coags daily. Follow trends.INR 1.[address] surgery- Started on Lovenox 70mg daily and Coumadin today. D/c Lovenox once INR>2.0 ID: Postoperative antibiotics with cefazolin completed Monitor for signs of infections ( fever, WBC) CXR today showed resolving pulm edema, Check UA MSK: Elevated BMI Osteoporosis/osteoarthritis Lumbar radiculopathy Physical therapy evaluate and treat Access -Utilize peripheral IV. Central line left subclavian cordis with dual-lumen placed 04/04 Prophylaxis -GI -pantoprazole -DVT-SCD/pharmacological prophylaxis- Started on Lovenox 70mg daily and Coumadin today. D/c Lovenox once INR>2.0 Level 3
[2018-04-07 11:07] LABS: Bacteria,Urine Occasional /hpf; Bilirubin,Urine Negative (Negative); Color,Urine Yellow (Yellw/Straw); Glucose,Urine (UA) Negative (Negative); Hyaline Casts,Urine 1 /lpf (0-3); Leukocyte Esterase,Urine Negative (Negative); Mucus,Urine Few /lpf (Occasional); Nitrite,Urine Negative (Negative); Specific Gravity,Urine 1.019 (1.002-1.035); Squamous Epithelial Cell,Urine 6 /hpf (0-5)
[2018-04-07 11:08] LABS: Clarity,Urine Clear (Clear)
[2018-04-07] MEDS ORDERED: Enoxaparin Inj 80 MG/0.8 ML Syringe SQ SCH (12:00)
--- NOTE | 2018-04-07 19:56 | ECG ---
Date Performed: 04/06/2018 Time Performed: 15:23:48 PTAGE: 77 years EKG: Atrial fibrillation with slow ventricular rate Ventricular premature complexes Diffuse ST e levation ,possible pericarditis or early replorization Abnormal ECG PREVIOUS TRACING : 04/05/2018 06.12 Compared to previous tracing, atrial fibrillation and safia cardia are new DOCTOR: Pipo Canales Interpretating Date/Time 04/07/2018 19:55:25
--- NOTE | 2018-04-07 19:57 | ECG ---
Date Performed: 04/06/2018 Time Performed: 16:29:40 PTAGE: 77 years EKG: Atrial fibrillation. Possible septal infarct - age undetermined Abnormal ECG PREVIOUS TRACING : 04/06/2018 15.23 Compared to previous tracing, bradycardia has resolved. ST elevation has improved DOCTOR: Pipo Canales Interpretating Date/Time 04/07/2018 19:56:18
[2018-04-08] MEDS ORDERED: Metoprolol Inj 5 MG/5 ML Vial IV.PUSH ONE ×2 (00:35→15:56)
--- NOTE | 2018-04-08 01:12 | MB ---
cc: Regulo Valle DO DATE: 04/07/2018 REASON FOR CONSULTATION: Atrial fibrillation. HISTORY OF PRESENT ILLNESS: Nazanin Gee is a pleasant 77-year-old female who sees my partner, Dr. Lakisha Menendez in the office and presented to [facility] for elective CABG and AVR. She underwent the procedure on 04/04/2018, but during it, she had extensive calcification of the aorta and it was felt that it would not be able to be cross-clamped and so she would not be able to be put on cardiopulmonary bypass and so AVR was unable to be done and she underwent bypass of her LAD and obtuse marginal. Postoperatively, she has been extubated and was sent to the floor. She had episodes of atrial fibrillation with rapid ventricular response and was given 150 mg of IV amiodarone and started on oral amiodarone as well as metoprolol tartrate. She was also on her home dose of verapamil 180 mg at that time. She became bradycardiac and hypotensive and says she was evaluated by critical care and sent back to the ICU and started on a dopamine drip. Heart rate and blood pressure improved after infusion of calcium chloride. All of her AV richar blocking agents have been stopped and I was asked to evaluate her for further help with determining how to proceed with her atrial fibrillation. In seeing her, she is somewhat lethargic in the bed, but denies chest pain, shortness of breath, or palpitations. She is currently hemodynamically stable with heart rates in the 80s-90s. Her dopamine drip has been discontinued. PAST MEDICAL HISTORY: 1. Severe aortic stenosis. 2. Sleep apnea. 3. Coronary artery disease. 4. Arthritis. 5. Asthma. 6. Atrial fibrillation. 7. Diabetes mellitus. 8. Diastolic heart failure. 9. Hiatal hernia. 10. Hyperlipidemia. 11. Hypertension. 12. Obesity. 13. TIA. PAST SURGICAL HISTORY: 1. Cardiac catheterization (03/09/2018): Left main mild luminal irregularities. LAD severe in-stent restenosis of the first diagonal, which is rather small vessel, moderate in-stent restenosis of a previously placed stent in the proximal LAD. Distal to the stent, there is an 80% lesion. Left circumflex dominant vessel. First OM 30-40% disease. Fourth OM 20% disease. Proximal circumflex has an eccentric 70% lesion. RCA small, nondominant vessel with a 70-80% lesion in the proximal territory. 2. CABG x2 (04/04/2018) with ZAPATA to LAD, SVG to OM. 3. Previous multiple coronary interventions. 4. Colon resection. 5. Repair of rotator cuff on the right. 6. Tubal ligation. ALLERGIES: 1. LIPITOR. 2. ZOCOR. MEDICATIONS: 1. Crestor 20 mg daily. 2. Paroxetine 10 mg daily. 3. Coumadin 5 mg daily. 4. Potassium 10 mEq daily. 5. Coenzyme Q10 t.i.d. 6. Verapamil 180 mg daily. 7. Losartan 50 mg daily. 8. Protonix 40 mg daily. 9. Lasix 40 mg b.i.d. 10. Ranitidine 150 mg b.i.d. 11. Synthroid 100 mcg daily. 12. Cipro 500 mg b.i.d. 13. Aspirin 81 mg daily. 14. Nitro sublingual as needed. FAMILY HISTORY: Denies sudden cardiac within the family. SOCIAL HISTORY: The patient is a former smoker. Denies alcohol or drug abuse. REVIEW OF SYSTEMS: Fourteen systems were reviewed as above. Pertinent positives and negatives above, otherwise negative. PHYSICAL EXAMINATION: VITAL SIGNS: Temperature 98.6, heart rate 88, blood pressure 101/50, respirations 18, pulse ox 98% on 4 liters. GENERAL: The patient is a frail, elderly female, who is somewhat lethargic. She is in no acute distress and awake, still questioning. HEENT: Extraocular muscles intact. Mucous membranes moist. NECK: Supple. No JVD at 45 degrees. No carotid bruits heard bilaterally. Carotid upstroke is brisk in nature. HEART: Irregularly irregular. Positive first and second heart sounds with a 3/6 crescendo/decrescendo murmur to the right sternal border. Sternotomy is clean, dry and intact. LUNGS: Decreased breath sounds at bilateral bases, but no overt wheezes, rales or rhonchi. ABDOMEN: Soft, nontender, nondistended. No organomegaly noted. EXTREMITIES: Show no clubbing, cyanosis or edema. SKIN: Warm, dry and intact. NEUROLOGIC: No focal deficits. OSTEOPATHIC: No kyphoscoliosis, lordosis or paraspinal tender points. LABORATORY DATA: Hemoglobin 10.1, hematocrit 30.2, platelets 267. Potassium 4.6, BUN 42, creatinine 1.36. TSH 0.72. DIAGNOSTIC DATA: Electrocardiogram (04/06/2018 at 16:29): Atrial fibrillation, possible septal infarct, nonspecific multiple areas of ST elevation, possible early repolarization versus pericarditis. IMPRESSION: 1. Severe multivessel disease, status post coronary artery bypass grafting x2 (left internal mammary artery to left anterior descending artery, saphenous vein graft to obtuse marginal) postop day 3. 2. Atrial fibrillation. 3. Severe aortic stenosis. 4. History of transient ischemic attack. 5. Obstructive sleep apnea. 6. Hypertension. 7. Hyperlipidemia. 8. Obesity. RECOMMENDATIONS: 1. Ms. Gee underwent CABG x2, but still has residual aortic stenosis. As she had a significantly calcified aorta, it was felt that she could not undergo cardiopulmonary bypass. Consideration will need to be made for possible TAVR in the near future. 2. As far as her atrial fibrillation, it appears that she received multiple medications, which made her significantly bradycardic leading to hypotension. All of her AV richar blocking agents have been stopped. 3. She will need to be started back on some AV richar blocking agents. Otherwise, she will be back in atrial fibrillation with rapid ventricular response. For now, we will start her back on short-acting verapamil at a low dose and this can be titrated up as necessary. 4. I believe that her hypotensive event was due to significant bradycardia as she responded to calcium chloride, but we should check an echocardiogram to rule out further causes of this. 5. She has been started back on her Coumadin therapy for atrial fibrillation. 6. Further recommendations will be made based on the hospital course. Thank you for allowing me to see Nazanin Espinozajjar. If there are any questions, please do not hesitate to call. Regulo Valle, DO VGP/sv , 12:19 AM , 12:35 AM
[2018-04-08] MEDS ORDERED: Phenylephrine Inj 160 MG in Sodium Chlor 0.9% Inj 484 ML IV.CONT PRN (02:22)
[2018-04-08 05:37] LABS: Hematocrit 33.7 % (35.0-46.0); Hemoglobin 11.1 gm/dL (11.6-15.3); Mean Corpuscular HGB Conc 33.1 % (32.0-36.0); Mean Corpuscular Hemoglobin 31.3 pg (27.0-34.0); Mean Corpuscular Volume 94.5 fL (80.0-100.0); Platelet Count 410 th/mm3 (150-450); Red Blood Count 3.57 mil/mm3 (4.00-5.30); Red Cell Distribution Width 13.9 % (11.6-17.2)
[2018-04-08 05:41] LABS: INR 3.3 Ratio; Prothrombin Time 33.6 sec (9.8-11.6)
[2018-04-08] MEDS ORDERED: Digoxin Inj 500 MCG/2 ML Ampul IV.PUSH ONE (05:52)
[2018-04-08] MEDS: Levothyroxine 100 MCG Tablet PO SCH ×2 (06:13→08:05)
[2018-04-08 06:15] LABS: Calcium 9.3 mg/dL (8.5-10.1); Magnesium 2.9 mg/dL (1.5-2.5); Potassium 4.7 meq/L (3.5-5.1)
[2018-04-08] MEDS: Insulin NovoLOG Aspart Correctional Sugar Inj SQ SCH ×3 (08:38→16:47)
[2018-04-08 09:24] LABS: ABG Base Excess -5.9 mmol/L (-2-2); ABG PCO2 28 mmHg (38-42); ABG PO2 72 mmHG (61-120)
--- NOTE | 2018-04-08 09:27 | P.PNCC ---
Subjective Subjective Remarks/Hospital Course: This is a 77-year-old female. Date of admission 04/04/2018. Date of consultation 04/06/2018. Patient has no history of aortic stenosis, coronary disease, hypertension, hyperlipidemia, gastroesophageal reflux disease, hypothyroidism and depression. On 04/04, patient had a two-vessel CABG ZAPATA to LAD, reverse saphenous vein graft to OM of left circumflex with left EVH and CLARA excision. Without complications. Today, patient this morning was in atrial fibrillation with rapid ventricular response. Received 150 mg IV amiodarone and started on oral amiodarone 400 mg along with 25 mg of oral metoprolol tartrate.. She became bradycardic this afternoon and we are asked to evaluate the patient. She is received 2 g of calcium chloride and is currently been started on dopamine drip. Her heart rate and blood pressure immediately improved after the infusion of calcium chloride. In reviewing laboratories, potassium magnesium are within normal limits. She does have a new leukocytosis of 19,000. She denies shortness of breath. She is more confused likely due to hypoperfusion 04/07 Patient is lying in bed in NAD. Feeling nauseas, denies any abdominal pain. 04/08 Patient was given Lopressor, Cardizem and Digoxin overnight for tachycardic became hypotensive and started on Neosyn ( current MAP 81mmHg). Renal function worse today with Cr: 2.22 from 1.76 Objective Vital Signs / I&O: Vital Signs 04/07/18 10:47 04/07/18 11:00 04/07/18 14:10 Temperature 98.5 F Pulse Rate 88 85 Respiratory Rate 18 18 Blood Pressure 110/54 L Pulse Oximetry 97 95 04/07/18 15:00 04/07/18 17:19 04/07/18 19:00 Temperature 98.8 F 97.8 F Pulse Rate 99 H 120 H 125 H Respiratory Rate 18 18 18 Blood Pressure 105/51 L 108/57 L Pulse Oximetry 94 L 92 L 04/07/18 20:23 04/07/18 23:00 04/08/18 03:00 Temperature 97.8 F 97.6 F Pulse Rate 124 H 130 H 126 H Respiratory Rate 18 20 18 Blood Pressure 94/54 L 106/66 Pulse Oximetry 97 94 L 96 04/08/18 07:00 04/08/18 08:16 Temperature 98.8 F Pulse Rate 110 H 124 H Respiratory Rate 16 18 Blood Pressure 96/78 L Pulse Oximetry 93 L 94 L Intake & Output 04/07/18 04/08/18 04/08/18 18:59 06:59 18:59 Intake Total 550 / 550 240 / 240 Output Total 375 / 375 50 / 50 Balance 175 / 175 190 / 190 Weight 84 kg Intake: IV 100 / 100 Ofirmev Inj 1,000 mg In 100 ml 100 / 100 @ 400 mls/hr IV.SIG Q6H PRN Rx# :[id number] Oral 450 / 450 240 / 240 Output: Urine 375 / 375 50 / 50 Emesis 0 / 0 Other: # Incontinent Voids 3 # Urine Diapers 2 1 # Bowel Movements 0 0 Result Diagrams: 04/08/18 09:15 04/08/18 09:15 Other Results: Laboratory Results - last 12 hr 04/08/18 04/08/18 04/08/18 04:55 04:55 04:55 WBC 9.0 RBC 3.57 L Hgb 11.1 L Hct 33.7 L MCV 94.5 MCH 31.3 MCHC 33.1 RDW 13.9 Plt Count 410 D MPV 9.0 PT 33.6 H D INR 3.3 Sodium 142 Potassium 4.7 Chloride 109 H Carbon Dioxide 25.0 Anion Gap 8 BUN 70 H Creatinine 2.22 H Estimated GFR 21 L POC Glucose Random Glucose 72 L Calcium 9.3 Magnesium 2.9 H 04/08/18 04/08/18 04/08/18 08:11 08:33 09:20 WBC RBC Hgb Hct MCV MCH MCHC RDW Plt Count MPV PT INR Sodium Potassium Chloride Carbon Dioxide Anion Gap BUN Creatinine Estimated GFR POC Glucose 65 L 115 H 90 Random Glucose Calcium Magnesium Imaging: Abdomen X-Ray 04/07/18 00:00 CONCLUSION: Nonspecific bowel gas pattern with scattered small and large bowel gas. Abdomen/Bladder Ultrasound 04/08/18 00:00 CONCLUSION: Kidneys within normal limits. Right pleural effusion noted. Chest X-Ray 04/08/18 09:12 CONCLUSION: 1. Increased bilateral lower lung zone opacity indicating a combination of consolidation/atelectasis and small pleural effusions. 2. Large hiatal hernia with gas-filled stomach in the chest again seen. Abdomen/Pelvis CT 04/08/18 10:09 CONCLUSION: 1. Prominent amount of free air and free fluid in the upper abdomen and within a large hiatal hernia. A large portion of the stomach is in a hiatal hernia. Most likely etiology for the findings is a perforated gastric ulcer. Findings discussed with the patient's nurse. 2. Distended gallbladder. Chest CT 04/08/18 10:09 CONCLUSION: 1. Large hiatal hernia containing a large portion of the stomach with moderate amount of free air in the hiatal hernia and in the upper abdomen. Distal gastric wall thickening and extraluminal fluid adjacent to the distal stomach. Most likely etiology for the findings is a perforated gastric ulcer. Free fluid is also seen in the upper abdomen. 2. New bilateral lower lobe atelectasis/consolidation and small bilateral pleural effusions. Objective Remarks: GENERAL: Patient is 77 yo lying in bed in NAD SKIN: Warm and dry. HEAD: Normocephalic. EYES: No scleral icterus. No injection or drainage. NECK: Supple, trachea midline. No JVD or lymphadenopathy. CARDIOVASCULAR: Tachycardic without murmurs, gallops, or rubs. RESPIRATORY: Breath sounds equal bilaterally. No accessory muscle use. GASTROINTESTINAL: Abdomen soft, non-tender, nondistended. MUSCULOSKELETAL: No cyanosis, or edema. Neuro: Awake and alert. Assessment and Plan - Assessment and Plan Plan: Neuro/Psych: Depressive disorder NOS History of TIA Currently on paroxetine 10 mg daily for depression. Continue aspirin as above. Hydrocodone/acetaminophen 5/325 1 tablet every 3 hours as needed pain 1 through 5 CV: Postoperative CABG x2 ZAPATA to LAD, reverse saphenous vein graft to OM with left EVH and CLARA excision -Dr. Warner Atrial fibrillation Essential hypertension by history Hyperlipidemia Coronary artery disease status post PTCA left anterior descending proximal Wean off Neosyn monitor HR and BP keep MAP>65mmHG Check Lactic acid level. Hold Verapamil while on Neosyn. Cardiac catheterization 417 revealed left ear 0.48 cm area. EF 55-60%. Moderate aortic regurgitation. On rosuvastatin 10 mg daily at home. Noted allergies to atorvastatin simvastatin Continue aspirin 81 mg daily and clopidogrel [address] chest for further eval pulm parenchyma Resp: Obstructive sleep apnea Continue with oxygen keep sats> 92% Incentive spirometry while awake Bronchodilators, check CXR today CXR 04/07 -resolving pulm edema GI: Diverticulosis Gastroesophageal reflux disease Hiatal hernia Advance diet per CT surgery Pantoprazole for GI prophylaxis Docusate sodium/senna 1 tablet twice daily for hours along with polythene glycol 17 g daily KUB abdomen 04/07 : Nonspecific bowel gas pattern with scattered small and large bowel gas. CT abd/pelvis- Prominent amount of free air and free fluid in the upper abdomen and within a large hiatal hernia. A large portion of the stomach is in a hiatal hernia. Most likely etiology for the findings is a perforated gastric ulcer. Consult general surgery - spoke with Dr. Poole. Planning to take patient to OR, Will reverse coagulopathy with FFP and Vitamin k. Endo: Hypothyroidism Currently on levothyroxine 100 mcg p.o. daily TSH:0.72 Sliding scale insulin with aspart insulin Renal: Acute kidney injury Monitor renal function, I/O's, electrolytes replacement as needed. Avoid nephrotoxins Renal function is worse today with Cr: 2.[address] on gentle IV hydration, D5NS@50ml/hr Check renal US, renal eval Heme: Leukocytosis Normocytic anemia Chronic warfarin use Monitor CBC, Coags daily. INR 3.3 today, d/c Lovenox, on Coumadin ID: Postoperative antibiotics with cefazolin completed Start empiric abx ( Zosyn, Flagyl) Monitor for signs of infections ( fever, WBC) Check BC x 2 sets. MSK: Elevated BMI Osteoporosis/osteoarthritis Lumbar radiculopathy Physical therapy evaluate and treat Access -Utilize peripheral IV. Central line left subclavian cordis with dual-lumen placed 04/04 Prophylaxis -GI -pantoprazole -DVT-SCD/pharmacological prophylaxis- on coumadin INR 3.3 today Level 3
[2018-04-08] MEDS ORDERED: Dextrose 5%/NaCl 0.9% Inj 1,000 ML IV.CONT SCH (09:30)
--- NOTE | 2018-04-08 09:37 | XR ---
EXAM DATE: 04/08/2018 9:33 AM EDT AGE/SEX: 77 years / Female INDICATIONS: Respiratory distress. CLINICAL DATA: This is the patient's subsequent encounter. Patient reports that signs and symptoms h ave been present for 4 - 6 days and indicates a pain score of 0/10. MEDICAL/SURGICAL HISTORY: . Congestive heart failure. Chronic obstructive pulmonary disease. Hy pertension. Aortic stenosis. . CABG. COMPARISON: [facility] [place] 1V SINGLE AP, 04/07/2018. . FINDINGS: Single AP view the chest. Median sternotomy wires are present. Large hiatal hernia again seen. Increa sed opacity at the lung bases indicating a combination of consolidation/atelectasis and small pleural effusions. No evidence of pneumothorax. Left subclavian central venous catheter remains in place. CONCLUSION: 1. Increased bilateral lower lung zone opacity indicating a combination of consolidation/atelectasis and small pleural effusions. 2. Large hiatal hernia with gas-filled stomach in the chest again seen. Electronically signed by: Stuart Clifton MD 04/08/2018 9:36 AM EDT
[2018-04-08 09:42] LABS: Baso % (Auto) 0.1 % (0.0-2.0); Hematocrit 32.3 % (35.0-46.0); Hemoglobin 10.9 gm/dL (11.6-15.3); Lymph # (Auto) 1.4 th/mm3 (1.0-4.8); Mean Corpuscular HGB Conc 33.9 % (32.0-36.0); Mean Corpuscular Hemoglobin 31.7 pg (27.0-34.0); Mean Corpuscular Volume 93.4 fL (80.0-100.0); Mean Platelet Volume 8.5 fL (7.0-11.0); Mono # (Auto) 1.6 th/mm3 (0.0-0.9); Mono % (Auto) 12.6 % (0.0-8.0); Neut # (Auto) 9.4 th/mm3 (1.8-7.7); Neut % (Auto) 76.3 % (16.0-70.0); Platelet Count 449 th/mm3 (150-450); Red Blood Count 3.45 mil/mm3 (4.00-5.30); Red Cell Distribution Width 13.9 % (11.6-17.2); White Blood Count 12.3 th/mm3 (4.0-11.0)
[2018-04-08 09:48] LABS: INR 3.8 Ratio; Prothrombin Time 37.9 sec (9.8-11.6)
[2018-04-08 10:16] LABS: Alanine Aminotransferase 25 U/L (10-53); Albumin 2.1 g/dL (3.4-5.0); Alkaline Phosphatase 47 U/L (45-117); Anion Gap 10 meq/L (5-15); Aspartate Aminotransferase 46 U/L (15-37); Blood Urea Nitrogen 70 mg/dL (7-18); Calcium 9.2 mg/dL (8.5-10.1); Carbon Dioxide 22.3 meq/L (21.0-32.0); Chloride 110 meq/L (98-107); Glomerular Filtration Rate 21 mL/min (>89); Glucose,Random 70 mg/dL (74-106); Magnesium 2.9 mg/dL (1.5-2.5); Phosphorus 3.9 mg/dL (2.5-4.9); Potassium 4.3 meq/L (3.5-5.1); Sodium 142 meq/L (136-145); Total Protein 5.3 g/dL (6.4-8.2)
--- NOTE | 2018-04-08 11:07 | P.PNCV ---
- Note Subjective/Hospital Course: 77/ female initially seen on 03/13/18 in [facility] office with Dr Warner, hx of progressive SOB over past few months . Known hx of CAD previous PCI's , ECHO revealed severe . Cardiac cath revealed multivessel disease PMH: Afib, Aortic stenosis, Asthma, CAD (coronary artery disease), CHF ( congestive heart failure), HLD (hyperlipidemia), HTN (hypertension) Hiatal hernia, Hypothyroid, LBBB (left bundle branch block), Mitral regurgitation, Myocardial infarct, Sleep apnea, TIA (transient ischemic attack) UTI (urinary tract infection) 04/04 pt electively admitted for surgery PREPROCEDURE DIAGNOSES 1. Severe Multi Vessel Coronary Artery Disease. 2. Severe aortic stenosis 3. Atrial fibrillation status post ablation POSTPROCEDURE DIAGNOSES 1. Severe Multi Vessel Coronary Artery Disease. 2. Severe aortic stenosis 3. Atrial fibrillation status post ablation 4. Heavily calcified ascending aorta SURGICAL PROCEDURE 1. Clampless off-pump Coronary Artery Bypass Grafting x 2 with Left Internal Mammary Artery (ZAPATA) to Left Anterior Descending (LAD), reverse saphenous vein graft to obtuse Marginal branch of the left Circumflex artery 2. Left leg Endoscopic Vein [place] 3. Left atrial appendage excision pt extubated after surgery crystalloid 2300cc, 1500cc EBL, 750cc cell saver 04/05 pt up in chair ECG with some mild global st elevation / pericarditis + rub, no pressors , stable for transfer, resume BB will need to resume coumadin when chest tubes out 04/06 chest tube dc without difficultly pt went into afib RVR last night and this am received 2nd bolus of amiodarone / po amiodarone increased will resume coumadin / this pm goal 2.5 / followed by Dr Menendez at home 04/07 pt was transferred back to CVICU yesterday became bradycardic / hypotensive / despite IV fluids calcium chloride / required Dopamine gtt / remains in afib rate now 90's , BP improved discussed with Dr Warner/ will consult cardiology regarding cardiac meds start lovenox and coumadin/ dc when INR > 2.0 dc fem line / consult PT / observe in CVICU today 04/08 Remains in atrial fibrillation with rapid ventricular response heart rate in the 120s Overnight events noted she received diltiazem, digoxin and Lopressor for heart rate with resultant hypotension requiring Dayday-Synephrine which is presently being weaned. Remains somewhat labile with her blood pressure Had echo this morning. Awaiting results Renal function worsening. Will consult nephrology. Likely secondary to hypoperfusion If ventricular function is okay, will give gentle hydration Objective: Vital Signs - 24 hr 04/07/18 14:10 04/07/18 15:00 04/07/18 17:19 Temperature 98.8 F Pulse Rate 99 H 120 H Respiratory Rate 18 18 Blood Pressure 105/51 L Pulse Oximetry 95 94 L 04/07/18 19:00 04/07/18 20:23 04/07/18 23:00 Temperature 97.8 F 97.8 F Pulse Rate 125 H 124 H 130 H Respiratory Rate 18 18 20 Blood Pressure 108/57 L 94/54 L Pulse Oximetry 92 L 97 94 L 04/08/18 03:00 04/08/18 07:00 04/08/18 08:16 Temperature 97.6 F 98.8 F Pulse Rate 126 H 110 H 124 H Respiratory Rate 18 16 18 Blood Pressure 106/66 96/78 L Pulse Oximetry 96 93 L 94 L Labs: Laboratory Results - last 12 hr 04/08/18 04/08/18 04/08/18 04:55 04:55 04:55 WBC 9.0 RBC 3.57 L Hgb 11.1 L Hct 33.7 L MCV 94.5 MCH 31.3 MCHC 33.1 RDW 13.9 Plt Count 410 D MPV 9.0 Neut % (Auto) Lymph % (Auto) [place] % (Auto) Eos % (Auto) Baso % (Auto) Neut # (Auto) Lymph # (Auto) [place] # (Auto) Eos # (Auto) Baso # (Auto) WBC Differential Differential Comment PT 33.6 H D INR 3.3 Puncture Site Patient Temperature O2 Saturation ABG pH ABG pCO2 ABG pO2 ABG HCO3 ABG O2 Content ABG Base Excess ABG Methemoglobin Adrien Test Hemoglobin Carboxyhemoglobin O2 Delivery Device Liter Flow Critical Value Sodium 142 Potassium 4.7 Chloride 109 H Carbon Dioxide 25.0 Anion Gap 8 BUN 70 H Creatinine 2.22 H Estimated GFR 21 L POC Glucose Random Glucose 72 L Lactic Acid Calcium 9.3 Phosphorus Magnesium 2.9 H Total Bilirubin AST ALT Alkaline Phosphatase Total Protein Albumin 04/08/18 04/08/18 04/08/18 08:11 08:33 09:14 WBC RBC Hgb Hct MCV MCH MCHC RDW Plt Count MPV Neut % (Auto) Lymph % (Auto) [place] % (Auto) Eos % (Auto) Baso % (Auto) Neut # (Auto) Lymph # (Auto) [place] # (Auto) Eos # (Auto) Baso # (Auto) WBC Differential Differential Comment PT INR Puncture Site Right radial Patient Temperature 98.6 O2 Saturation 92 ABG pH 7.42 ABG pCO2 28 L ABG pO2 72 ABG HCO3 18 L ABG O2 Content 14.5 ABG Base Excess -5.9 L ABG Methemoglobin 1.3 Adrien Test Present Hemoglobin 11.2 L Carboxyhemoglobin 1.3 O2 Delivery Device Nasal cannula Liter Flow 4.00 Critical Value No Sodium Potassium Chloride Carbon Dioxide Anion Gap BUN Creatinine Estimated GFR POC Glucose 65 L 115 H Random Glucose Lactic Acid Calcium Phosphorus Magnesium Total Bilirubin AST ALT Alkaline Phosphatase Total Protein Albumin 04/08/18 04/08/18 04/08/18 09:15 09:15 09:15 WBC 12.3 H RBC 3.45 L Hgb 10.9 L Hct 32.3 L MCV 93.4 MCH 31.7 MCHC 33.9 RDW 13.9 Plt Count 449 MPV 8.5 Neut % (Auto) 76.3 H Lymph % (Auto) 11.0 [place] % (Auto) 12.6 H Eos % (Auto) 0.0 Baso % (Auto) 0.1 Neut # (Auto) 9.4 H Lymph # (Auto) 1.4 [place] # (Auto) 1.6 H Eos # (Auto) 0.0 Baso # (Auto) 0.0 WBC Differential . Differential Comment Auto diff final PT 37.9 H INR 3.8 Puncture Site Patient Temperature O2 Saturation ABG pH ABG pCO2 ABG pO2 ABG HCO3 ABG O2 Content ABG Base Excess ABG Methemoglobin Adrien Test Hemoglobin Carboxyhemoglobin O2 Delivery Device Liter Flow Critical Value Sodium Potassium Chloride Carbon Dioxide Anion Gap BUN Creatinine Estimated GFR POC Glucose Random Glucose Lactic Acid 3.6 H Calcium Phosphorus Magnesium Total Bilirubin AST ALT Alkaline Phosphatase Total Protein Albumin 04/08/18 04/08/18 04/08/18 09:15 09:20 10:21 WBC RBC Hgb Hct MCV MCH MCHC RDW Plt Count MPV Neut % (Auto) Lymph % (Auto) [place] % (Auto) Eos % (Auto) Baso % (Auto) Neut # (Auto) Lymph # (Auto) [place] # (Auto) Eos # (Auto) Baso # (Auto) WBC Differential Differential Comment PT INR Puncture Site Patient Temperature O2 Saturation ABG pH ABG pCO2 ABG pO2 ABG HCO3 ABG O2 Content ABG Base Excess ABG Methemoglobin Adrien Test Hemoglobin Carboxyhemoglobin O2 Delivery Device Liter Flow Critical Value Sodium 142 Potassium 4.3 Chloride 110 H Carbon Dioxide 22.3 Anion Gap 10 BUN 70 H Creatinine 2.30 H Estimated GFR 21 L POC Glucose 90 88 Random Glucose 70 L Lactic Acid Calcium 9.2 Phosphorus 3.9 D Magnesium 2.9 H Total Bilirubin 0.8 AST 46 H ALT 25 Alkaline Phosphatase 47 Total Protein 5.3 L Albumin 2.1 L D Result Diagrams: 04/08/18 09:15 04/08/18 09:15 - Plan (1) Severe aortic stenosis Plan: will need planned TAVR after discharge (4) Atrial fibrillation Plan: s/p atrial appendage excision start lovenox / dc when INR>2.0 resume Coumadin consult cardiology regarding cardiac meds for rate control (5) COPD (chronic obstructive pulmonary disease) Plan: nebs ezpap and acapella (6) S/P CABG (coronary artery bypass graft) Plan: ASA, resume home med crestor pulm toileting , nebs ezpap, acapella OOB ambulate eval for rehab at discharge
--- NOTE | 2018-04-08 11:22 | US ---
EXAM DATE: 04/08/2018 11:17 AM EDT AGE/SEX: 77 years / Female INDICATIONS: Elevated lab values. CLINICAL DATA: This is the patient's initial encounter. Patient reports that signs and symptoms have been present for 1 day and indicates a pain score of 0/10. MEDICAL/SURGICAL HISTORY: Congestive heart failure. Hypertension. Asthma. Afib. Aortic steno sis. Hiatal hernia. Hyperlipidemia. Hypothyroid. LBBB. Mitral regurgitation. Myocardial infarct. Slee p apnea. TIA. UTI. CABG. COMPARISON: [facility], CT ABDOMEN AND PELVIS W AND W/O CONTRAST, 12/01/2016. . MEASUREMENTS: Right Kidney:__7.3 x 3.5 x 4.1 cm Left Kidney:__7.8 x 4.5 x 4.5 cm FINDINGS: Right Kidney: Normal echotexture and cortical thickness. No mass or hydronephrosis. Left Kidney: Normal echotexture and cortical thickness. No mass or hydronephrosis. Bladder: Within normal limits given the degree of distension. Other: Right pleural effusion noted. CONCLUSION: Kidneys within normal limits. Right pleural effusion noted. Electronically signed by: Stuart Clifton MD 04/08/2018 11:21 AM EDT
[2018-04-08] MEDS: Multivitamin/Minerals Therapeutic Tablet PO SCH (11:39)
[2018-04-08] MEDS ORDERED: Magnesium Sulfate Inj 2 GM in Sodium Chlor 0.9% Inj 96 ML IV.SIG ONE (12:30)
--- NOTE | 2018-04-08 13:12 | CT ---
EXAM DATE: 04/08/2018 12:59 PM EDT AGE/SEX: 77 years / Female INDICATIONS: Shortness of breath. CLINICAL DATA: This is the patient's initial encounter. Patient reports that signs and symptoms have been present for 1 day and indicates a pain score of 0/10. MEDICAL/SURGICAL HISTORY: Chronic obstructive pulmonary disease. Congestive heart failure. Myocar dial infarction. CABG. RADIATION DOSE: 16.50 CTDI (mGy) ; Combined studies COMPARISON: [facility], CT CHEST TRANSAORTIC VALVE REP, 03/09/2018. . TECHNIQUE: Multiple contiguous axial images were obtained through the chest without contrast. Image s were obtained in suspended respiration using multiple row detector helical technique. Using automa yann exposure control and adjustment of the mA and/or kV according to patient size, radiation dose was kept as low as reasonably achievable to obtain optimal diagnostic quality images. DICOM format imag e data is available electronically for review and comparison. FINDINGS: Lungs: Moderate-sized areas of bilateral lower lobe pulmonary consolidation/atelectasis posteriorly. Scarring at the lung apices. Mediastinum: Large hiatal hernia again seen. Moderate amount of free air is seen in the abdomen and in the mediastinum adjacent to the hiatal hernia. Nonspecific thickening of the distal gastric wall. Extraluminal fluid is also seen adjacent to the distal gastric wall within the hiatal hernia. Pleurae: Small bilateral pleural effusions. Axillae: Unremarkable. Bony Structures: Unremarkable. Miscellaneous: Moderate amount of free air in the nondependent portion of the upper abdomen. Free fl uid is also seen in the upper abdomen. CONCLUSION: 1. Large hiatal hernia containing a large portion of the stomach with moderate amount of free air in the hiatal hernia and in the upper abdomen. Distal gastric wall thickening and extraluminal fluid ad jacent to the distal stomach. Most likely etiology for the findings is a perforated gastric ulcer. Fr ee fluid is also seen in the upper abdomen. 2. New bilateral lower lobe atelectasis/consolidation and small bilateral pleural effusions. Electronically signed by: Stuart Clifton MD 04/08/2018 1:11 PM EDT
--- NOTE | 2018-04-08 13:26 | CT ---
EXAM DATE: 04/08/2018 1:07 PM EDT AGE/SEX: 77 years / Female INDICATIONS: Nausea and diffuse abdomen pain today. CLINICAL DATA: This is the patient's initial encounter. Patient reports that signs and symptoms have been present for 1 day and indicates a pain score of 4/10. MEDICAL/SURGICAL HISTORY: Hypertension. Hypothyroidism. Congestive heart failure. CABG. RADIATION DOSE: 16.50 CTDI (mGy) COMPARISON: [facility], CT ABDOMEN AND PELVIS W AND W/O CONTRAST, 12/01/2016. . TECHNIQUE: Multiple contiguous axial images were obtained through the abdomen. Images were obtained using multiple row detector helical technique. Using automated exposure control and adjustment of the mA and/or kV according to patient size, radiation dose was kept as low as reasonably achievable to o btain optimal diagnostic quality images. DICOM format image data is available electronically for rev iew and comparison. FINDINGS: Lower Lungs: Fully described on chest CT report. Liver: Distended gallbladder. Liver grossly within normal limits. Spleen: Homogeneous density without enlargement. Pancreas: Unremarkable without mass or calcification. Kidneys: Normal in size and shape. No evidence of mass or hydronephrosis. Adrenal Glands: Unremarkable. Aorta: Diffusely calcified. Normal diameter. Bowel/Mesentery: Moderate amount of free air in the nondependent portion of the upper abdomen. Large hiatal hernia with a large portion of the stomach again seen in the chest. There is free fluid and a moderate amount of free air around the stomach in the hiatal hernia. Moderate amount of free fluid i n all 4 quadrants of the abdomen. No evidence of small bowel dilatation. Colon is within normal limit s. Abdominal Wall: Intact. Retroperitoneum: No evidence of adenopathy in the retrocrural, para-aortic, or deep pelvic regions. Bladder: Small amount of air in the bladder. Question recent catheterization. Prominent left-sided u rinary bladder diverticulum. Reproductive Organs: Within normal limits. Inguinal: The inguinal region is unremarkable without evidence of adenopathy. Bony Structures: Degenerative findings of lumbar spine.. CONCLUSION: 1. Prominent amount of free air and free fluid in the upper abdomen and within a large hiatal hernia . A large portion of the stomach is in a hiatal hernia. Most likely etiology for the findings is a pe rforated gastric ulcer. Findings discussed with the patient's nurse. 2. Distended gallbladder. Electronically signed by: Stuart Clifton MD 04/08/2018 1:25 PM EDT
[2018-04-08] MEDS ORDERED: Phytonadione Inj 10 MG/ML Vial SQ ONE (13:34)
[2018-04-08] MEDS: Docusate Sodium 100 MG Capsule PO SCH ×2 (13:56→23:21)
[2018-04-08] MEDS: Polyethylene Glycol 3350 17 GM Packet PO SCH (13:56)
--- NOTE | 2018-04-08 14:05 | P.PNCA ---
Subjective Interval history: Continues to have AFib with RVR overnight Given Cardizem and Digoxin Became hypotensive, started on Phenylephrine No chest pain Medications and Allergies Active Medications: Active Medications Al Hydroxide/Mg Hydroxide (Milk Of Tono Liq) 30 ml PO DAILY [facility] Last Admin: 04/08/18 09:31 Dose: Not Given Albuterol (Duoneb Neb (Prn)) 1 ampul NEB Q2HR NEB PRN PRN Reason: WHEEZING Albuterol (Duoneb Neb (Jose)) 1 ampul NEB Q4HR NEB [facility] Last Admin: 04/08/18 13:44 Dose: 1 ampul Aspirin (Aspirin Chew) 81 mg PO DAILY [facility] Last Admin: 04/08/18 13:55 Dose: Not Given Bisacodyl (Dulcolax Supp) 10 mg RECTAL PRN PRN PRN Reason: SEE LABEL COMMENTS Chlorhexidine Gluconate (Hibiclens 4% Topical) 1 applicatio TOPICAL SMELTER CHARGER [facility] Stop: 04/10/18 06:12 Dextrose (D50w Vial) 50 ml IV.PUSH UNSCH PRN PRN Reason: PER HYPOGLYCEMIA PROTOCOL Last Admin: 04/08/18 08:14 Dose: 50 ml Docusate Sodium (Colace) 100 mg PO BID [facility] Last Admin: 04/08/18 13:56 Dose: Not Given Glucagon (Glucagon Inj) 1 mg OTHER PRN PRN PRN Reason: For hypoglycemia Sodium Chloride (Ns Inj) 500 mls @ 30 mls/hr IV.SIG .Q10H [facility] Last Admin: 04/04/18 06:39 Dose: Not Given Dopamine HCl 800 mg/ Dextrose 500 mls @ 9.22 mls/hr IV.CONT TITRATE PRN; Protocol PRN Reason: Per Protocol Last Titration: 04/06/18 21:50 Dose: 0 mcg/kg/min, 0 mls/hr Acetaminophen (Ofirmev Inj) 1,000 mg in 100 mls @ 400 mls/hr IV.SIG Q6H PRN PRN Reason: PAIN SCALE 1-10 Last Infusion: 04/07/18 18:44 Dose: Infused Phenylephrine HCl 160 mg/ (Sodium Chloride) 500 mls @ 7.5 mls/hr IV.CONT TITRATE PRN; Protocol PRN Reason: See protol Last Titration: 04/08/18 07:45 Dose: 130 mcg/min, 24.37 mls/hr Dextrose/Sodium Chloride (D5w/Normal Saline Inj) 1,000 mls @ 50 mls/hr IV.CONT .Q20H [facility] Last Admin: 04/08/18 10:02 Dose: 50 mls/hr Magnesium Sulfate 2 gm/ Sodium (Chloride) 100 mls @ 50 mls/hr IV.SIG ONCE ONE Stop: 04/08/18 14:29 Last Admin: 04/08/18 13:55 Dose: Not Given Metronidazole/Sodium Chloride (Flagyl 500 Mg Inj) 100 mls @ 100 mls/hr IV.SIG Q8H JOSE Piperacillin/Tazobactam/Dextrose (Zosyn 3.375 Gm Premix) 50 mls @ 200 mls/hr IV.SIG Q6H JOSE Insulin Aspart (Novolog Insulin Correctional Sugar Inj) 0 unit SQ ACHS [facility]; Protocol Last Admin: 04/08/18 13:55 Dose: Not Given Levothyroxine Sodium (Synthroid) 100 mcg PO DAILY@0600 [facility] Last Admin: 04/08/18 08:05 Dose: 100 mcg Melatonin (Melatonin) 5 mg PO [facility] Last Admin: 04/07/18 21:52 Dose: 5 mg Metoprolol Tartrate (Lopressor) 25 mg PO BID [facility] Last Admin: 04/06/18 09:29 Dose: 25 mg Miscellaneous (Pill Splitter) 1 each OTHER UNSCH PRN PRN Reason: SEE LABEL COMMENTS Multivitamins/Minerals (Theragran-M) 1 tab PO DAILY [facility] Last Admin: 04/08/18 11:39 Dose: Not Given Ondansetron HCl (Zofran Inj) 4 mg IV.PUSH Q6H PRN PRN Reason: NAUSEA OR VOMITING Last Admin: 04/08/18 09:29 Dose: 4 mg Pantoprazole Sodium (Protonix) 40 mg PO DAILY@06 [facility] Last Admin: 04/08/18 06:13 Dose: Not Given Paroxetine HCl (Paxil) 10 mg PO DAILY [facility] Last Admin: 04/08/18 13:56 Dose: Not Given Patient's Own: ( Rosuvastatin [ Rosuvastatin] 20 Mg) 0 each PO DAILY [facility] Polyethylene Glycol (Miralax) 17 gm PO DAILY [facility] Last Admin: 04/08/18 13:56 Dose: Not Given Sennosides (Senokot) 8.6 mg PO [facility] Last Admin: 04/07/18 20:48 Dose: 8.6 mg Sodium Biphosphate/Sodium Phosphate (Fleets Enema (Adult)) 118 ml RECTAL UNSCH PRN PRN Reason: SEE LABEL COMMENTS Sodium Chloride (Ns Flush) 2 ml IV.FLUSH BID [facility] Last Admin: 04/07/18 20:48 Dose: 2 ml Sodium Chloride (Ns Flush) 2 ml IV.FLUSH PRN PRN PRN Reason: FLUSH AFTER USING IV ACCESS Terbutaline Sulfate (Brethine Inj) 1 mg SQ UNSCH PRN PRN Reason: For Extravasation Verapamil HCl (Isoptin) 40 mg PO TID [facility] Last Admin: 04/08/18 13:56 Dose: Not Given Warfarin Sodium (Coumadin) 2 mg PO DAILY@1600 [facility] Last Admin: 04/07/18 16:37 Dose: 2 mg Allergies Allergy/AdvReac Type Severity Reaction Status Date / Time atorvastatin AdvReac Hypotension Verified 04/04/18 06:21 simvastatin AdvReac Hypotension Verified 04/04/18 06:21 Home Medications Medication Instructions Recorded Confirmed Type ciprofloxacin HCl [Cipro] 500 mg PO Q12H 02/16/18 04/04/18 History coenzyme Q10 [Co Q-10] 10 mg PO TID 02/16/18 04/04/18 History furosemide 40 mg PO BID 02/16/18 04/04/18 History losartan 50 mg PO DAILY 02/16/18 04/04/18 History pantoprazole 40 mg PO DAILY 02/16/18 04/04/18 History paroxetine HCl 10 mg PO DAILY 02/16/18 04/04/18 History potassium chloride [K-Tab] 10 meq PO DAILY 02/16/18 04/04/18 History ranitidine HCl 150 mg PO BID 02/16/18 04/04/18 History rosuvastatin 20 mg PO DAILY 02/16/18 04/04/18 History verapamil 180 mg PO DAILY 02/16/18 04/04/18 History warfarin 5 mg PO DAILY 02/16/18 04/04/18 History aspirin 81 mg PO DAILY 03/09/18 04/04/18 History nitroglycerin 0.4 mg SUBLINGUAL Q5-15M PRN 03/09/18 04/04/18 History Physical Exam Vital signs: Vital Signs 04/07/18 14:10 04/07/18 15:00 04/07/18 17:19 Temperature 98.8 F Pulse Rate 99 H 120 H Respiratory Rate 18 18 Blood Pressure 105/51 L Pulse Oximetry 95 94 L 04/07/18 19:00 04/07/18 20:23 04/07/18 23:00 Temperature 97.8 F 97.8 F Pulse Rate 125 H 124 H 130 H Respiratory Rate 18 18 20 Blood Pressure 108/57 L 94/54 L Pulse Oximetry 92 L 97 94 L 04/08/18 03:00 04/08/18 07:00 04/08/18 08:16 Temperature 97.6 F 98.8 F Pulse Rate 126 H 110 H 124 H Respiratory Rate 18 16 18 Blood Pressure 106/66 96/78 L Pulse Oximetry 96 93 L 94 L 04/08/18 11:00 04/08/18 13:44 Temperature 97.6 F Pulse Rate 118 H 119 H Respiratory Rate 20 18 Blood Pressure 95/46 L Pulse Oximetry 97 Intake & Output 04/07/18 04/08/18 04/08/18 18:59 06:59 18:59 Intake Total 550 / 550 240 / 240 Output Total 375 / 375 50 / 50 Balance 175 / 175 190 / 190 Weight 84 kg Intake: IV 100 / 100 Ofirmev Inj 1,000 mg In 100 ml 100 / 100 @ 400 mls/hr IV.SIG Q6H PRN Rx# :[id number] Oral 450 / 450 240 / 240 Output: Urine 375 / 375 50 / 50 Emesis 0 / 0 Other: # Incontinent Voids 3 # Urine Diapers 2 1 # Bowel Movements 0 0 Narrative: GENERAL: Frail female SKIN: Warm and dry. HEAD: Atraumatic. Normocephalic. EYES: Pupils equal and round. No scleral icterus. No injection or drainage. ENT: No nasal bleeding or discharge. Mucous membranes pink and moist. NECK: Trachea midline. No JVD. CARDIOVASCULAR: Irregularly irregular RESPIRATORY: No accessory muscle use. Decreased breath sounds bilaterally GASTROINTESTINAL: Abdomen soft, mildly tender, nondistended. Hepatic and splenic margins not palpable. MUSCULOSKELETAL: Extremities without clubbing, cyanosis. 1+ edema. No obvious deformities. NEUROLOGICAL: Awake and alert. No obvious cranial nerve deficits. - Urinary Catheter Management Indwelling Temp Sensing Catheter Cath placed during this visit: yes Urethral indwelling: No Reason for continuing: Hourly intake/output Insertion date: 04/04/18 Insertion time: 07:52 Results 04/08/18 09:15 04/08/18 09:15 Cardiac Enzymes 04/07/18 04/08/18 Range/Units 04:45 09:15 AST 73 H 46 H (15-37) U/L Coagulation 04/07/18 04/08/18 04/08/18 Range/Units 06:25 04:55 09:15 PT 15.7 H 33.6 H D 37.9 H (9.8-11.6) sec CBC 04/06/18 04/07/18 04/08/18 Range/Units 16:30 04:45 04:55 WBC 19.1 H 9.0 (4.0-11.0) th/mm3 RBC 3.27 L 3.57 L (4.00-5.30) mil/mm3 Hgb 9.9 L 10.1 L 11.1 L (11.6-15.3) gm/dL Hct 30.6 L 30.2 L 33.7 L (35.0-46.0) % Plt Count 267 410 D (150-450) th/mm3 Neut # (Auto) 16.2 H (1.8-7.7) th/mm3 Lymph # (Auto) 1.0 (1.0-4.8) th/mm3 [place] # (Auto) 1.8 H (0.0-0.9) th/mm3 Eos # (Auto) 0.0 (0.0-0.4) th/mm3 Baso # (Auto) 0.1 (0.0-0.2) th/mm3 04/08/18 Range/Units 09:15 WBC 12.3 H (4.0-11.0) th/mm3 RBC 3.45 L (4.00-5.30) mil/mm3 Hgb 10.9 L (11.6-15.3) gm/dL Hct 32.3 L (35.0-46.0) % Plt Count 449 (150-450) th/mm3 Neut # (Auto) 9.4 H (1.8-7.7) th/mm3 Lymph # (Auto) 1.4 (1.0-4.8) th/mm3 [place] # (Auto) 1.6 H (0.0-0.9) th/mm3 Eos # (Auto) 0.0 (0.0-0.4) th/mm3 Baso # (Auto) 0.0 (0.0-0.2) th/mm3 Comprehensive Metabolic Panel 04/06/18 04/07/18 04/08/18 Range/Units 16:30 04:45 04:55 Sodium 140 142 142 (136-145) meq/L Potassium 4.8 4.6 4.7 (3.5-5.1) meq/L Chloride 106 106 109 H (98-107) meq/L Carbon Dioxide 25.0 28.3 25.0 (21.0-32.0) meq/L BUN 37 H 42 H 70 H (7-18) mg/dL Creatinine 1.72 H 1.36 H 2.22 H (0.50-1.00) mg/dL Calcium 9.8 D 9.6 9.3 (8.5-10.1) mg/dL AST 73 H (15-37) U/L ALT 43 (10-53) U/L Alkaline Phosphatase 57 (45-117) U/L Total Protein 5.8 L (6.4-8.2) g/dL Albumin 2.8 L (3.4-5.0) g/dL 04/08/18 Range/Units 09:15 Sodium 142 (136-145) meq/L Potassium 4.3 (3.5-5.1) meq/L Chloride 110 H (98-107) meq/L Carbon Dioxide 22.3 (21.0-32.0) meq/L BUN 70 H (7-18) mg/dL Creatinine 2.30 H (0.50-1.00) mg/dL Calcium 9.2 (8.5-10.1) mg/dL AST 46 H (15-37) U/L ALT 25 (10-53) U/L Alkaline Phosphatase 47 (45-117) U/L Total Protein 5.3 L (6.4-8.2) g/dL Albumin 2.1 L D (3.4-5.0) g/dL Intake and Output 04/07/18 04/08/18 04/08/18 22:59 06:59 14:59 Intake Total 550 / 550 240 / 240 Output Total 375 / 375 50 / 50 Balance 175 / 175 190 / 190 Intake: IV 100 / 100 Ofirmev Inj 1,000 mg In 100 ml 100 / 100 @ 400 mls/hr IV.SIG Q6H PRN Rx# :[id number] Oral 450 / 450 240 / 240 Output: Urine 375 / 375 50 / 50 Emesis 0 / 0 Other: # Incontinent Voids 3 # Urine Diapers 2 1 # Bowel Movements 0 0 Weight 84 kg - Imaging and Cardiology Imaging: Impressions Chest X-Ray 04/06/18 00:00 CONCLUSION: 1. Huge hiatal hernia and the entire stomach is basically said the chest filled with gas not present previously. 2. Slight bilateral lung base atelectasis and/or infiltrate is seen, mild pulmonary edema is also suspected. Abdomen X-Ray 04/07/18 00:00 CONCLUSION: Nonspecific bowel gas pattern with scattered small and large bowel gas. Chest X-Ray 04/07/18 06:00 CONCLUSION: Resolving pulmonary edema. Small left effusion Abdomen/Bladder Ultrasound 04/08/18 00:00 CONCLUSION: Kidneys within normal limits. Right pleural effusion noted. Chest X-Ray 04/08/18 09:12 CONCLUSION: 1. Increased bilateral lower lung zone opacity indicating a combination of consolidation/atelectasis and small pleural effusions. 2. Large hiatal hernia with gas-filled stomach in the chest again seen. Abdomen/Pelvis CT 04/08/18 10:09 CONCLUSION: 1. Prominent amount of free air and free fluid in the upper abdomen and within a large hiatal hernia. A large portion of the stomach is in a hiatal hernia. Most likely etiology for the findings is a perforated gastric ulcer. Findings discussed with the patient's nurse. 2. Distended gallbladder. Chest CT 04/08/18 10:09 CONCLUSION: 1. Large hiatal hernia containing a large portion of the stomach with moderate amount of free air in the hiatal hernia and in the upper abdomen. Distal gastric wall thickening and extraluminal fluid adjacent to the distal stomach. Most likely etiology for the findings is a perforated gastric ulcer. Free fluid is also seen in the upper abdomen. 2. New bilateral lower lobe atelectasis/consolidation and small bilateral pleural effusions. 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 Code(s): I25.10 - Atherosclerotic heart disease of sycuan coronary artery without angina pectoris Status: Acute (3) Congestive heart failure (CHF) Code(s): I50.9 - Heart failure, unspecified Status: Chronic (4) Atrial fibrillation Code(s): I48.91 - Unspecified atrial fibrillation Status: Chronic (5) S/P CABG (coronary artery bypass graft) Code(s): Z95.1 - Presence of aortocoronary bypass graft Status: Acute - Plan 1) CAD s/p CABGx2 2) Residual Possible TAVR in the future Not a BAV candidate at this time with at least moderate AR 3) Repeat echo pending 4) AFib Rates elevated, but blood pressure low Started on Phenylephrine Consideration of cardioversion Will see how she does Interval history: Found to have free air on CT scan of the abdomen, going for emergent surgery. If heart rates need further control, would consider Esmolol due to short acting property If unstable, then consider cardioversion
--- NOTE | 2018-04-08 14:11 | ECHRPT ---
Indication: CORONARY ATHEROSCLEROSIS CONCLUSIONS Normal left ventricular size. Wall thickness is normal. The left ventricular systolic function is moderately reduced with an estimated ejection fraction in the range of 40%. Global hypokinesis. [id number] mitral valve regurgitation. Mitral annular calcification is present. Moderate to severe aortic valve stenosis. Aortic valve mean gradient is 32 mmHg. Moderate aortic valve regurgitation. There is mild- moderate tricuspid valve regurgitation. There is estimated mild pulmonary hypertension present (44mmHg). BP: / HR: Rhythm: Atrial fibrillation MEASUREMENTS (Male / Female) Normal Values Technical Quality: 2D ECHO LV Diastolic Diameter PLAX 4.3 cm 4.2 - 5.9 / 3.9 - 5.3 cm IVS Diastolic Thickness 0.6 cm 0.6 - 1.0 / 0.6 - 0.9 cm LVPW Diastolic Thickness 0.8 cm 0.6 - 1.0 / 0.6 - 0.9 cm LV Relative Wall Thickness 0.3 RV Internal Dim ED PLAX 1.8 cm LVOT Diameter 1.8 cm DOPPLER AV Peak Velocity 400.0 cm/s AV Peak Gradient 64.0 mmHg AV Mean Gradient 32.0 mmHg AV Velocity Time Integral 64.3 cm AI Peak Velocity 373.0 cm/s AI Peak Gradient 55.7 mmHg AI Pressure Half Time 472.0 ms Mitral E Point Velocity 132.0 cm/s TR Peak Velocity 291.0 cm/s TR Peak Gradient 33.9 mmHg Right Atrial Pressure 10.0 mmHg Pulmonary Artery Systolic Pressu 43.9 mmHg Right Ventricular Systolic Press 43.9 mmHg FINDINGS LEFT VENTRICLE Normal left ventricular size. Wall thickness is normal. The left ventricular systolic function is moderately reduced with an estimated ejection fraction in the range of 40%. There is global left ventricular dysfunction. 22@ RIGHT VENTRICLE Normal right ventricular size and systolic function. LEFT ATRIUM The left atrial size is normal. RIGHT ATRIUM The right atrial size is normal. ATRIAL SEPTUM Normal atrial septal thickness without atrial level shunting by limited color doppler interrogation. AORTA The aortic root and proximal ascending aorta are normal in size on limited imaging. MITRAL VALVE [id number] mitral valve regurgitation. Mitral annular calcification is present. AORTIC VALVE Moderate to severe aortic valve stenosis. Aortic valve mean gradient is 32 mmHg. Moderate aortic valve regurgitation. TRICUSPID VALVE There is mild- moderate tricuspid valve regurgitation. There is estimated mild pulmonary hypertension present (44mmHg). PULMONARY VALVE No pulmonary valve regurgitation or stenosis. VESSELS The inferior vena cava is normal in size. PERICARDIUM No pericardial effusion. Lamberto Man MD (Electronically Signed) Final Date:08 April 2018 14:10
[2018-04-08] MEDS: Piperacil/Tazo 3.375 GM Premix 50 ML IV.SIG SCH (14:46)
--- NOTE | 2018-04-08 15:15 | P.CONNP ---
History of Present Illness Service: Nephrology Consult date: 04/08/18 Requesting Physician: J Carlos Schroeder Reason for Consult: Acute renal failure Primary Care Provider: No Primary Care Physician Chief Complaint: Weakness History of Present Illness: Patient 77-year-old female with history of coronary artery disease who had CABG on 04/04/2018 patient postoperative course is complicated with abdominal distention and pain she had a CT scan of the abdomen showing possible perforation and gastric area, a perforated peptic ulcer disease is suspected patient is going to go for the emergency surgery, her creatinine has increased to 2.3 from baseline of 0.96. Review of Systems Constitutional: Reports anorexia Cardiovascular: Reports chest pain, Reports leg sores Respiratory: Reports shortness of breath Gastrointestinal: Reports abdominal pain Genitourinary: Reports other Musculoskeletal: Reports other Psychiatric: Denies abnormal sleep pattern, Denies anxiety, Denies behavioral changes, Denies change in appetite, Denies change in sex drive, Denies confusion , Denies depression, Denies difficulty concentrating, Denies hearing things others do not hear, Denies hopelessness, Denies irritability, Denies lack of enjoyment, Denies memory loss, Denies mood swings, Denies panic attacks, Denies paranoia, Denies seeing things others do not see, Denies sensing things others do not sense, Denies tactile hallucinations, Denies thoughts of hurting/killing others, Denies thoughts of hurting/killing yourself, Denies other Endocrine: Denies cold intolerance, Denies excessive sweating, Denies flushing, Denies heat intolerance, Denies increased hunger, Denies increased thirst, Denies increased urination, Denies rapid, pounding, or irregular heartbeat, Denies other Hematologic/Lymphatic: Denies easy bleeding, Denies easy bruising, Denies enlarged lymph nodes, Denies other Allergic/Immunologic: Denies GI upset with certain foods, Denies hives, Denies itchy eyes, Denies lip swelling, Denies seasonal runny nose, Denies throat swelling, Denies tongue swelling, Denies wheezing, Denies other PMFSH - History History Provided By: Patient - Medical History Medical History: Medical History (Last Reviewed 04/08/18 @ 16:41 by Re Holliday MD) Adverse anesthesia outcome Afib Aortic stenosis Asthma CAD (coronary artery disease) CHF (congestive heart failure) HLD (hyperlipidemia) HTN (hypertension) Hiatal hernia Hypothyroid LBBB (left bundle branch block) Mitral regurgitation Myocardial infarct Sleep apnea TIA (transient ischemic attack) UTI (urinary tract infection) - Surgical History Surgical History: Surgical History (Last Reviewed 04/08/18 @ 16:41 by Re Holliday MD) History of coronary artery bypass graft - Family History Family History: Family History (Last Updated 04/09/18 @ 14:27 by Ema Knox MD) Other Family history non-contributory - Social History I have reviewed the patient's Social History: Yes - Tobacco History Second Hand Smoke Exposure: No Smoking Status: Former smoker Tobacco Type: Cigarettes - Alcohol History How Often Do You Have a Drink Containing Alcohol: Monthly or less - Substance Use History Substance History: No History of Abuse - Travel History Recent Travel in the [place] Within the Last 8 Weeks: No Recent Travel Out of the Country Within the Last 8 Weeks: No Medications and Allergies Active Medications: Active Medications Al Hydroxide/Mg Hydroxide (Milk Of Magnesia Liq) 30 ml PO DAILY [facility] Last Admin: 04/08/18 09:31 Dose: Not Given Albuterol (Duoneb Neb (Prn)) 1 ampul NEB Q2HR NEB PRN PRN Reason: WHEEZING Albuterol (Duoneb Neb (Jose)) 1 ampul NEB Q4HR NEB [facility] Last Admin: 04/08/18 13:44 Dose: 1 ampul Aspirin (Aspirin Chew) 81 mg PO DAILY [facility] Last Admin: 04/08/18 13:55 Dose: Not Given Bisacodyl (Dulcolax Supp) 10 mg RECTAL PRN PRN PRN Reason: SEE LABEL COMMENTS Chlorhexidine Gluconate (Hibiclens 4% Topical) 1 applicatio [employer] ASSISTANT [facility] Stop: 04/10/18 06:12 Dextrose (D50w Vial) 50 ml IV.PUSH UNSCH PRN PRN Reason: PER HYPOGLYCEMIA PROTOCOL Last Admin: 04/08/18 08:14 Dose: 50 ml Docusate Sodium (Colace) 100 mg PO BID [facility] Last Admin: 04/08/18 13:56 Dose: Not Given Glucagon (Glucagon Inj) 1 mg OTHER PRN PRN PRN Reason: For hypoglycemia Sodium Chloride (Ns Inj) 500 mls @ 30 mls/hr IV.SIG .Q10H [facility] Last Admin: 04/04/18 06:39 Dose: Not Given Dopamine HCl 800 mg/ Dextrose 500 mls @ 9.22 mls/hr IV.CONT TITRATE PRN; Protocol PRN Reason: Per Protocol Last Titration: 04/06/18 21:50 Dose: 0 mcg/kg/min, 0 mls/hr Acetaminophen (Ofirmev Inj) 1,000 mg in 100 mls @ 400 mls/hr IV.SIG Q6H PRN PRN Reason: PAIN SCALE 1-10 Last Infusion: 04/07/18 18:44 Dose: Infused Phenylephrine HCl 160 mg/ (Sodium Chloride) 500 mls @ 7.5 mls/hr IV.CONT TITRATE PRN; Protocol PRN Reason: See protol Last Titration: 04/08/18 07:45 Dose: 130 mcg/min, 24.37 mls/hr Dextrose/Sodium Chloride (D5w/Normal Saline Inj) 1,000 mls @ 50 mls/hr IV.CONT .Q20H [facility] Last Admin: 04/08/18 10:02 Dose: 50 mls/hr Metronidazole/Sodium Chloride (Flagyl 500 Mg Inj) 100 mls @ 100 mls/hr IV.SIG Q8H [facility] Last Admin: 04/08/18 14:01 Dose: 100 mls/hr Piperacillin/Tazobactam/Dextrose (Zosyn 3.375 Gm Premix) 50 mls @ 200 mls/hr IV.SIG Q6H [facility] Last Admin: 04/08/18 14:46 Dose: 200 mls/hr Insulin Aspart (Novolog Insulin Correctional Sugar Inj) 0 unit SQ ACHS [facility]; Protocol Last Admin: 04/08/18 13:55 Dose: Not Given Levothyroxine Sodium (Synthroid) 100 mcg PO DAILY@0600 [facility] Last Admin: 04/08/18 08:05 Dose: 100 mcg Melatonin (Melatonin) 5 mg PO HS [facility] Last Admin: 04/07/18 21:52 Dose: 5 mg Metoprolol Tartrate (Lopressor) 25 mg PO BID [facility] Last Admin: 04/06/18 09:29 Dose: 25 mg Miscellaneous (Pill Splitter) 1 each OTHER UNSCH PRN PRN Reason: SEE LABEL COMMENTS Multivitamins/Minerals (Theragran-M) 1 tab PO DAILY [facility] Last Admin: 04/08/18 11:39 Dose: Not Given Ondansetron HCl (Zofran Inj) 4 mg IV.PUSH Q6H PRN PRN Reason: NAUSEA OR VOMITING Last Admin: 04/08/18 09:29 Dose: 4 mg Pantoprazole Sodium (Protonix) 40 mg PO DAILY@06 [facility] Last Admin: 04/08/18 06:13 Dose: Not Given Paroxetine HCl (Paxil) 10 mg PO DAILY [facility] Last Admin: 04/08/18 13:56 Dose: Not Given Patient's Own: ( Rosuvastatin [ Rosuvastatin] 20 Mg) 0 each PO DAILY [facility] Polyethylene Glycol (Miralax) 17 gm PO DAILY [facility] Last Admin: 04/08/18 13:56 Dose: Not Given Sennosides (Senokot) 8.6 mg PO HS [facility] Last Admin: 04/07/18 20:48 Dose: 8.6 mg Sodium Biphosphate/Sodium Phosphate (Fleets Enema (Adult)) 118 ml RECTAL UNSCH PRN PRN Reason: SEE LABEL COMMENTS Sodium Chloride (Ns Flush) 2 ml IV.FLUSH BID [facility] Last Admin: 04/08/18 14:03 Dose: 2 ml Sodium Chloride (Ns Flush) 2 ml IV.FLUSH PRN PRN PRN Reason: FLUSH AFTER USING IV ACCESS Terbutaline Sulfate (Brethine Inj) 1 mg SQ UNSCH PRN PRN Reason: For Extravasation Verapamil HCl (Isoptin) 40 mg PO TID [facility] Last Admin: 04/08/18 13:56 Dose: Not Given Warfarin Sodium (Coumadin) 2 mg PO DAILY@1600 [facility] Last Admin: 04/07/18 16:37 Dose: 2 mg Allergies Allergy/AdvReac Type Severity Reaction Status Date / Time atorvastatin AdvReac Hypotension Verified 04/04/18 06:21 simvastatin AdvReac Hypotension Verified 04/04/18 06:21 Home Medications Medication Instructions Recorded Confirmed Type ciprofloxacin HCl [Cipro] 500 mg PO Q12H 02/16/18 04/04/18 History coenzyme Q10 [Co Q-10] 10 mg PO TID 02/16/18 04/04/18 History furosemide 40 mg PO BID 02/16/18 04/04/18 History losartan 50 mg PO DAILY 02/16/18 04/04/18 History pantoprazole 40 mg PO DAILY 02/16/18 04/04/18 History paroxetine HCl 10 mg PO DAILY 02/16/18 04/04/18 History potassium chloride [K-Tab] 10 meq PO DAILY 02/16/18 04/04/18 History ranitidine HCl 150 mg PO BID 02/16/18 04/04/18 History rosuvastatin 20 mg PO DAILY 02/16/18 04/04/18 History verapamil 180 mg PO DAILY 02/16/18 04/04/18 History warfarin 5 mg PO DAILY 02/16/18 04/04/18 History aspirin 81 mg PO DAILY 03/09/18 04/04/18 History nitroglycerin 0.4 mg SUBLINGUAL Q5-15M PRN 03/09/18 04/04/18 History Exam Vital signs: Vital Signs 04/07/18 17:19 04/07/18 19:00 04/07/18 20:23 Temperature 97.8 F Pulse Rate 120 H 125 H 124 H Respiratory Rate 18 18 18 Blood Pressure 108/57 L Pulse Oximetry 92 L 97 04/07/18 23:00 04/08/18 03:00 04/08/18 07:00 Temperature 97.8 F 97.6 F 98.8 F Pulse Rate 130 H 126 H 110 H Respiratory Rate 20 18 16 Blood Pressure 94/54 L 106/66 96/78 L Pulse Oximetry 94 L 96 93 L 04/08/18 08:16 04/08/18 11:00 04/08/18 13:44 Temperature 97.6 F Pulse Rate 124 H 118 H 119 H Respiratory Rate 18 20 18 Blood Pressure 95/46 L Pulse Oximetry 94 L 97 04/08/18 14:40 04/08/18 14:57 Temperature 98.3 F 98.2 F Pulse Rate 137 H 137 H Respiratory Rate 22 20 Blood Pressure 112/70 126/89 Pulse Oximetry 94 L 97 Intake & Output 04/07/18 04/08/18 04/08/18 18:59 06:59 18:59 Intake Total 550 / 550 240 / 240 692 / 692 Output Total 375 / 375 50 / 50 Balance 175 / 175 190 / 190 692 / 692 Weight 84 kg Intake: IV 100 / 100 Ofirmev Inj 1,000 mg In 100 ml 100 / 100 @ 400 mls/hr IV.SIG Q6H PRN Rx# :[id number] Oral 450 / 450 240 / 240 Other 346 / 346 Plasma Thawed 5 Day Cp2d Unit 346 / 346 [id number] Intake (Blood Product) Amt 346 / 346 Plasma Thawed 5 Day Cp2d Unit 346 / 346 [id number] Output: Urine 375 / 375 50 / 50 Emesis 0 / 0 Other: # Incontinent Voids 3 # Urine Diapers 2 1 # Bowel Movements 0 0 Narrative: GENERAL: Well-nourished, well-developed patient. SKIN: Warm and dry. HEAD: Normocephalic. EYES: No scleral icterus. No injection or drainage. NECK: Supple, trachea midline. No JVD or lymphadenopathy. CARDIOVASCULAR: Irregularly postsurgical scar in place RESPIRATORY: Breath sounds diminished at bases GASTROINTESTINAL: Abdomen tenderness in epigastric area distended EXTREMITIES: Mild edema NEUROLOGICAL: Awake, alert, and oriented x 3. Non-focal. Results - Lab Results 04/09/18 05:30 04/09/18 05:30 Most recent lab results ABG pH 7.42 (7.380-7.420) 04/08/18 09:14 ABG pCO2 28 mmHg (38-42) L 04/08/18 09:14 ABG pO2 72 mmHG (61-120) 04/08/18 09:14 ABG HCO3 18 mmol/L (22-26) L 04/08/18 09:14 Calcium 9.2 mg/dL (8.5-10.1) 04/08/18 09:15 Phosphorus 3.9 mg/dL (2.5-4.9) D 04/08/18 09:15 Magnesium 2.9 mg/dL (1.5-2.5) H 04/08/18 09:15 Assessment and Plan - Assessment (1) Acute renal failure Code(s): N17.9 - Acute kidney failure, unspecified Status: Acute (2) Atrial fibrillation Code(s): I48.91 - Unspecified atrial fibrillation Status: Chronic (3) S/P CABG (coronary artery bypass graft) Code(s): Z95.1 - Presence of aortocoronary bypass graft Status: Acute (4) Pneumoperitoneum Code(s): K66.8 - Other specified disorders of peritoneum Status: Acute (5) Paraesophageal hernia Code(s): K44.9 - Diaphragmatic hernia without obstruction or gangrene Status: Acute - Plan Patient is going for a emergent laparoscopic surgery to evaluate for gastric perforation or perforated ulcer Keep her well-hydrated Avoid nephrotoxic agent Follow BMP Follow urine output And avoid dye studies Continue to monitor
[2018-04-08] MEDS ORDERED: niCARdipine Inj 25 MG/10 ML Vial ONE (15:26)
[2018-04-08] MEDS ORDERED: Etomidate Inj 20 MG/10 ML Ampul IV.PUSH ONE (15:26)
[2018-04-08] MEDS ORDERED: Norepinephrine Inj 4 MG/4 ML Ampul ONE (15:36)
[2018-04-08] MEDS ORDERED: Normosol-R pH 7.4 Inj 1,000 ML IV.CONT ONE (15:56)
[2018-04-08] MEDS ORDERED: Sodium Chlor 0.9% Inj 200 ML IV.FLUSH ONE (15:56)
--- NOTE | 2018-04-08 16:07 | P.CONGS ---
[facility] Gen Surgery Consult Note Consult date: 04/08/18 Narrative: The patient is a 77-year-old female who underwent CABG and atrial appendage excision on 04/04/2018, also with history of severe aortic stenosis and atrial fibrillation. Overnight last night she was treated for atrial fibrillation with RVR. She was placed on Dayday-Synephrine and the dose has been able to be decreased over the day today. Yesterday her white blood count was 19,000 and she complained of nausea and some abdominal pain. Therefore, CT chest and abdomen and pelvis were performed this morning which reveal significant amount of free air and free fluid and a large hiatal hernia. According to her intensive care nurse, she was quite confused this morning. However, she has improved cognitively and is able to answer my questions and discussed the situation with me. She does complain of significant abdominal pain especially with any movement such as lying the bed down. I had seen the patient as an outpatient regarding her hiatal hernia in the past. However, due to her cardiovascular issues we opted to observe. Her INR today was 3.8 and she has so far received 2 units of FFP with 2 more ordered. Review of Systems All other systems reviewed negative except as stated in [facility] - History History Provided By: Patient - Medical History Medical History: Medical History (Last Reviewed 04/08/18 @ 08:02 by Estrada Millan) Adverse anesthesia outcome Afib Aortic stenosis Asthma CAD (coronary artery disease) CHF (congestive heart failure) HLD (hyperlipidemia) HTN (hypertension) Hiatal hernia Hypothyroid LBBB (left bundle branch block) Mitral regurgitation Myocardial infarct Sleep apnea TIA (transient ischemic attack) UTI (urinary tract infection) - Surgical History Surgical History: Surgical History (Last Reviewed 04/08/18 @ 08:02 by Estrada Millan) History of coronary artery bypass graft - Tobacco History Second Hand Smoke Exposure: No Smoking Status: Former smoker Tobacco Type: Cigarettes - Alcohol History How Often Do You Have a Drink Containing Alcohol: Monthly or less - Substance Use History Substance History: No History of Abuse - Travel History Recent Travel in the [place] Within the Last 8 Weeks: No Recent Travel Out of the Country Within the Last 8 Weeks: No Medications and Allergies Active Medications: Active Medications Al Hydroxide/Mg Hydroxide (Milk Of Tono Gooden) 30 ml PO DAILY JOSE Last Admin: 04/08/18 09:31 Dose: Not Given Albuterol (Duoneb Neb (Prn)) 1 ampul NEB Q2HR NEB PRN PRN Reason: WHEEZING Albuterol (Duoneb Neb (Jose)) 1 ampul NEB Q4HR NEB [facility] Last Admin: 04/08/18 15:51 Dose: Not Given Aspirin (Aspirin Chew) 81 mg PO DAILY [facility] Last Admin: 04/08/18 13:55 Dose: Not Given Bisacodyl (Dulcolax Supp) 10 mg RECTAL PRN PRN PRN Reason: SEE LABEL COMMENTS Chlorhexidine Gluconate (Hibiclens 4% Topical) 1 applicatio 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 [facility] Stop: 04/10/18 06:12 Dextrose (D50w Vial) 50 ml IV.PUSH UNSCH PRN PRN Reason: PER HYPOGLYCEMIA PROTOCOL Last Admin: 04/08/18 08:14 Dose: 50 ml Docusate Sodium (Colace) 100 mg PO BID [facility] Last Admin: 04/08/18 13:56 Dose: Not Given Glucagon (Glucagon Inj) 1 mg OTHER PRN PRN PRN Reason: For hypoglycemia Sodium Chloride (Ns Inj) 500 mls @ 30 mls/hr IV.SIG .Q10H [facility] Last Admin: 04/04/18 06:39 Dose: Not Given Dopamine HCl 800 mg/ Dextrose 500 mls @ 9.22 mls/hr IV.CONT TITRATE PRN; Protocol PRN Reason: Per Protocol Last Titration: 04/06/18 21:50 Dose: 0 mcg/kg/min, 0 mls/hr Acetaminophen (Ofirmev Inj) 1,000 mg in 100 mls @ 400 mls/hr IV.SIG Q6H PRN PRN Reason: PAIN SCALE 1-10 Last Infusion: 04/07/18 18:44 Dose: Infused Phenylephrine HCl 160 mg/ (Sodium Chloride) 500 mls @ 7.5 mls/hr IV.CONT TITRATE PRN; Protocol PRN Reason: See protol Last Titration: 04/08/18 07:45 Dose: 130 mcg/min, 24.37 mls/hr Dextrose/Sodium Chloride (D5w/Normal Saline Inj) 1,000 mls @ 50 mls/hr IV.CONT .Q20H [facility] Last Admin: 04/08/18 10:02 Dose: 50 mls/hr Metronidazole/Sodium Chloride (Flagyl 500 Mg Inj) 100 mls @ 100 mls/hr IV.SIG Q8H [facility] Last Admin: 04/08/18 14:01 Dose: 100 mls/hr Piperacillin/Tazobactam/Dextrose (Zosyn 3.375 Gm Premix) 50 mls @ 200 mls/hr IV.SIG Q6H [facility] Last Admin: 04/08/18 14:46 Dose: 200 mls/hr Insulin Aspart (Novolog Insulin Correctional Sugar Inj) 0 unit SQ ACHS [facility]; Protocol Last Admin: 04/08/18 13:55 Dose: Not Given Levothyroxine Sodium (Synthroid) 100 mcg PO DAILY@0600 [facility] Last Admin: 04/08/18 08:05 Dose: 100 mcg Melatonin (Melatonin) 5 mg PO HS [facility] Last Admin: 04/07/18 21:52 Dose: 5 mg Metoprolol Tartrate (Lopressor) 25 mg PO BID [facility] Last Admin: 04/06/18 09:29 Dose: 25 mg Miscellaneous (Pill Splitter) 1 each OTHER UNSCH PRN PRN Reason: SEE LABEL COMMENTS Multivitamins/Minerals (Theragran-M) 1 tab PO DAILY [facility] Last Admin: 04/08/18 11:39 Dose: Not Given Ondansetron HCl (Zofran Inj) 4 mg IV.PUSH Q6H PRN PRN Reason: NAUSEA OR VOMITING Last Admin: 04/08/18 09:29 Dose: 4 mg Pantoprazole Sodium (Protonix) 40 mg PO DAILY@06 [facility] Last Admin: 04/08/18 06:13 Dose: Not Given Paroxetine HCl (Paxil) 10 mg PO DAILY [facility] Last Admin: 04/08/18 13:56 Dose: Not Given Patient's Own: ( Rosuvastatin [ Rosuvastatin] 20 Mg) 0 each PO DAILY [facility] Polyethylene Glycol (Miralax) 17 gm PO DAILY [facility] Last Admin: 04/08/18 13:56 Dose: Not Given Sennosides (Senokot) 8.6 mg PO [facility] Last Admin: 04/07/18 20:48 Dose: 8.6 mg Sodium Biphosphate/Sodium Phosphate (Fleets Enema (Adult)) 118 ml RECTAL UNSCH PRN PRN Reason: SEE LABEL COMMENTS Sodium Chloride (Ns Flush) 2 ml IV.FLUSH BID [facility] Last Admin: 04/08/18 14:03 Dose: 2 ml Sodium Chloride (Ns Flush) 2 ml IV.FLUSH PRN PRN PRN Reason: FLUSH AFTER USING IV ACCESS Terbutaline Sulfate (Brethine Inj) 1 mg SQ UNSCH PRN PRN Reason: For Extravasation Verapamil HCl (Isoptin) 40 mg PO TID [facility] Last Admin: 04/08/18 13:56 Dose: Not Given Warfarin Sodium (Coumadin) 2 mg PO DAILY@1600 [facility] Last Admin: 04/07/18 16:37 Dose: 2 mg Allergies Allergy/AdvReac Type Severity Reaction Status Date / Time atorvastatin AdvReac Hypotension Verified 04/04/18 06:21 simvastatin AdvReac Hypotension Verified 04/04/18 06:21 Home Medications Medication Instructions Recorded Confirmed Type ciprofloxacin HCl [Cipro] 500 mg PO Q12H 02/16/18 04/04/18 History coenzyme Q10 [Co Q-10] 10 mg PO TID 02/16/18 04/04/18 History furosemide 40 mg PO BID 02/16/18 04/04/18 History losartan 50 mg PO DAILY 02/16/18 04/04/18 History pantoprazole 40 mg PO DAILY 02/16/18 04/04/18 History paroxetine HCl 10 mg PO DAILY 02/16/18 04/04/18 History potassium chloride [K-Tab] 10 meq PO DAILY 02/16/18 04/04/18 History ranitidine HCl 150 mg PO BID 02/16/18 04/04/18 History rosuvastatin 20 mg PO DAILY 02/16/18 04/04/18 History verapamil 180 mg PO DAILY 02/16/18 04/04/18 History warfarin 5 mg PO DAILY 02/16/18 04/04/18 History aspirin 81 mg PO DAILY 03/09/18 04/04/18 History nitroglycerin 0.4 mg SUBLINGUAL Q5-15M PRN 03/09/18 04/04/18 History Exam Vital signs: Vital Signs 04/07/18 17:19 04/07/18 19:00 04/07/18 20:23 Temperature 97.8 F Pulse Rate 120 H 125 H 124 H Respiratory Rate 18 18 18 Blood Pressure 108/57 L Pulse Oximetry 92 L 97 04/07/18 23:00 04/08/18 03:00 04/08/18 07:00 Temperature 97.8 F 97.6 F 98.8 F Pulse Rate 130 H 126 H 110 H Respiratory Rate 20 18 16 Blood Pressure 94/54 L 106/66 96/78 L Pulse Oximetry 94 L 96 93 L 04/08/18 08:16 04/08/18 11:00 04/08/18 13:44 Temperature 97.6 F Pulse Rate 124 H 118 H 119 H Respiratory Rate 18 20 18 Blood Pressure 95/46 L Pulse Oximetry 94 L 97 04/08/18 14:40 04/08/18 14:57 04/08/18 15:15 Temperature 98.3 F 98.2 F 98.2 F Pulse Rate 137 H 137 H 121 H Respiratory Rate 22 20 20 Blood Pressure 112/70 126/89 166/63 H Pulse Oximetry 94 L 97 97 Intake & Output 04/07/18 04/08/18 04/08/18 18:59 06:59 18:59 Intake Total 550 / 550 240 / 240 692 / 692 Output Total 375 / 375 50 / 50 Balance 175 / 175 190 / 190 692 / 692 Weight 84 kg Intake: IV 100 / 100 Ofirmev Inj 1,000 mg In 100 ml 100 / 100 @ 400 mls/hr IV.SIG Q6H PRN Rx# :[id number] Oral 450 / 450 240 / 240 Other 346 / 346 Plasma Thawed 5 Day Cp2d Unit 346 / 346 [id number] Intake (Blood Product) Amt 346 / 346 Plasma Thawed 5 Day Cp2d Unit 346 / 346 [id number] Plasma Thawed 5 Day Cp2d Unit 0 / 0 [id number] Output: Urine 375 / 375 50 / 50 Emesis 0 / 0 Other: # Incontinent Voids 3 # Urine Diapers 2 1 # Bowel Movements 0 0 Narrative: GENERAL: Awake and alert. No acute distress. Cooperative. HEAD: Normocephalic. Atraumatic. EYES: Pupils equal round and reactive to light bilaterally. No scleral icterus. ENT: Moist oral mucosa. NECK: Trachea midline. CHEST: Nonlabored breathing. No respiratory distress. Wound VAC in place over sternotomy incision. CARDIOVASCULAR: Irregularly irregular and tachycardic. Left subclavian central line in place. ABDOMEN: Bandage in place over chest tube sites. Diffuse severe tenderness to palpation with positive rebound in the left lower and upper abdomen. EXTREMITIES: No cyanosis or edema. SKIN: Cool, dry, nonjaundiced. Results - Labs 04/08/18 09:15 04/08/18 09:15 Laboratory Results - last 24 hr 04/07/18 04/08/18 04/08/18 16:33 04:55 04:55 WBC 9.0 RBC 3.57 L Hgb 11.1 L Hct 33.7 L MCV 94.5 MCH 31.3 MCHC 33.1 RDW 13.9 Plt Count 410 D MPV 9.0 Neut % (Auto) Lymph % (Auto) [place] % (Auto) Eos % (Auto) Baso % (Auto) Neut # (Auto) Lymph # (Auto) [place] # (Auto) Eos # (Auto) Baso # (Auto) WBC Differential Differential Comment PT INR Puncture Site Patient Temperature O2 Saturation ABG pH ABG pCO2 ABG pO2 ABG HCO3 ABG O2 Content ABG Base Excess ABG Methemoglobin Adrien Test Hemoglobin Carboxyhemoglobin O2 Delivery Device Liter Flow Critical Value Sodium 142 Potassium 4.7 Chloride 109 H Carbon Dioxide 25.0 Anion Gap 8 BUN 70 H Creatinine 2.22 H Estimated GFR 21 L POC Glucose 82 Random Glucose 72 L Lactic Acid Calcium 9.3 Phosphorus Magnesium 2.9 H Total Bilirubin AST ALT Alkaline Phosphatase Total Protein Albumin Blood Bank Comment 04/08/18 04/08/18 04/08/18 04:55 08:11 08:33 WBC RBC Hgb Hct MCV MCH MCHC RDW Plt Count MPV Neut % (Auto) Lymph % (Auto) [place] % (Auto) Eos % (Auto) Baso % (Auto) Neut # (Auto) Lymph # (Auto) [place] # (Auto) Eos # (Auto) Baso # (Auto) WBC Differential Differential Comment PT 33.6 H D INR 3.3 Puncture Site Patient Temperature O2 Saturation ABG pH ABG pCO2 ABG pO2 ABG HCO3 ABG O2 Content ABG Base Excess ABG Methemoglobin Adrien Test Hemoglobin Carboxyhemoglobin O2 Delivery Device Liter Flow Critical Value Sodium Potassium Chloride Carbon Dioxide Anion Gap BUN Creatinine Estimated GFR POC Glucose 65 L 115 H Random Glucose Lactic Acid Calcium Phosphorus Magnesium Total Bilirubin AST ALT Alkaline Phosphatase Total Protein Albumin Blood Bank Comment 04/08/18 04/08/18 04/08/18 09:14 09:15 09:15 WBC 12.3 H RBC 3.45 L Hgb 10.9 L Hct 32.3 L MCV 93.4 MCH 31.7 MCHC 33.9 RDW 13.9 Plt Count 449 MPV 8.5 Neut % (Auto) 76.3 H Lymph % (Auto) 11.0 [place] % (Auto) 12.6 H Eos % (Auto) 0.0 Baso % (Auto) 0.1 Neut # (Auto) 9.4 H Lymph # (Auto) 1.4 [place] # (Auto) 1.6 H Eos # (Auto) 0.0 Baso # (Auto) 0.0 WBC Differential . Differential Comment Auto diff final PT INR Puncture Site Right radial Patient Temperature 98.6 O2 Saturation 92 ABG pH 7.42 ABG pCO2 28 L ABG pO2 72 ABG HCO3 18 L ABG O2 Content 14.5 ABG Base Excess -5.9 L ABG Methemoglobin 1.3 Adrien Test Present Hemoglobin 11.2 L Carboxyhemoglobin 1.3 O2 Delivery Device Nasal cannula Liter Flow 4.00 Critical Value No Sodium Potassium Chloride Carbon Dioxide Anion Gap BUN Creatinine Estimated GFR POC Glucose Random Glucose Lactic Acid 3.6 H Calcium Phosphorus Magnesium Total Bilirubin AST ALT Alkaline Phosphatase Total Protein Albumin Blood Bank Comment 04/08/18 04/08/18 04/08/18 09:15 09:15 09:20 WBC RBC Hgb Hct MCV MCH MCHC RDW Plt Count MPV Neut % (Auto) Lymph % (Auto) [place] % (Auto) Eos % (Auto) Baso % (Auto) Neut # (Auto) Lymph # (Auto) [place] # (Auto) Eos # (Auto) Baso # (Auto) WBC Differential Differential Comment PT 37.9 H INR 3.8 Puncture Site Patient Temperature O2 Saturation ABG pH ABG pCO2 ABG pO2 ABG HCO3 ABG O2 Content ABG Base Excess ABG Methemoglobin Adrien Test Hemoglobin Carboxyhemoglobin O2 Delivery Device Liter Flow Critical Value Sodium 142 Potassium 4.3 Chloride 110 H Carbon Dioxide 22.3 Anion Gap 10 BUN 70 H Creatinine 2.30 H Estimated GFR 21 L POC Glucose 90 Random Glucose 70 L Lactic Acid Calcium 9.2 Phosphorus 3.9 D Magnesium 2.9 H Total Bilirubin 0.8 AST 46 H ALT 25 Alkaline Phosphatase 47 Total Protein 5.3 L Albumin 2.1 L D Blood Bank Comment 04/08/18 04/08/18 04/08/18 10:21 11:12 14:02 WBC RBC Hgb Hct MCV MCH MCHC RDW Plt Count MPV Neut % (Auto) Lymph % (Auto) [place] % (Auto) Eos % (Auto) Baso % (Auto) Neut # (Auto) Lymph # (Auto) [place] # (Auto) Eos # (Auto) Baso # (Auto) WBC Differential Differential Comment PT INR Puncture Site Patient Temperature O2 Saturation ABG pH ABG pCO2 ABG pO2 ABG HCO3 ABG O2 Content ABG Base Excess ABG Methemoglobin Adrien Test Hemoglobin Carboxyhemoglobin O2 Delivery Device Liter Flow Critical Value Sodium Potassium Chloride Carbon Dioxide Anion Gap BUN Creatinine Estimated GFR POC Glucose 88 84 Random Glucose Lactic Acid Calcium Phosphorus Magnesium Total Bilirubin AST ALT Alkaline Phosphatase Total Protein Albumin Blood Bank Comment - Imaging Imaging: ITS Impressions Abdomen X-Ray 04/07/18 00:00 CONCLUSION: Nonspecific bowel gas pattern with scattered small and large bowel gas. Abdomen/Bladder Ultrasound 04/08/18 00:00 CONCLUSION: Kidneys within normal limits. Right pleural effusion noted. Chest X-Ray 04/08/18 09:12 CONCLUSION: 1. Increased bilateral lower lung zone opacity indicating a combination of consolidation/atelectasis and small pleural effusions. 2. Large hiatal hernia with gas-filled stomach in the chest again seen. Abdomen/Pelvis CT 04/08/18 10:09 CONCLUSION: 1. Prominent amount of free air and free fluid in the upper abdomen and within a large hiatal hernia. A large portion of the stomach is in a hiatal hernia. Most likely etiology for the findings is a perforated gastric ulcer. Findings discussed with the patient's nurse. 2. Distended gallbladder. Chest CT 04/08/18 10:09 CONCLUSION: 1. Large hiatal hernia containing a large portion of the stomach with moderate amount of free air in the hiatal hernia and in the upper abdomen. Distal gastric wall thickening and extraluminal fluid adjacent to the distal stomach. Most likely etiology for the findings is a perforated gastric ulcer. Free fluid is also seen in the upper abdomen. 2. New bilateral lower lobe atelectasis/consolidation and small bilateral pleural effusions. CT scan - abdomen: report reviewed, image reviewed CT scan - pelvis: report reviewed, image reviewed Assessment and Plan - Assessment (1) Pneumoperitoneum Code(s): K66.8 - Other specified disorders of peritoneum Status: Acute (2) Paraesophageal hernia Code(s): K44.9 - Diaphragmatic hernia without obstruction or gangrene Status: Acute (3) Severe aortic stenosis Code(s): I35.0 - Nonrheumatic aortic (valve) stenosis Status: Chronic (4) Atrial fibrillation Code(s): I48.91 - Unspecified atrial fibrillation Status: Chronic (5) S/P CABG (coronary artery bypass graft) Code(s): Z95.1 - Presence of aortocoronary bypass graft Status: Acute - Plan The patient has free air and free fluid in the abdominal cavity associated with a large hiatal hernia. This is a complicated case as she has had a recent CABG and has severe aortic stenosis and atrial fibrillation. Discussed with Dr. Valle of cardiology who recommends a transesophageal echocardiogram and cardioversion after induction of anesthesia to attempt to increase the patient' s cardiac output. Case also discussed with Dr. Azevedo, Dr. Warner, Dr. Clifton of radiology, Dr. Boss of anesthesiology, the patient's son Jaun who is an ICU nurse, and the patient. Recommend diagnostic laparoscopy and possible laparotomy. If she has a perforated peptic ulcer will attempt reduction of the hiatal hernia and repair of ulcer. She understands that this is a high risk surgery due to the emergent nature and her multiple comorbidities.
[2018-04-08] MEDS ORDERED: Bupivacaine/Epinephrine PF Inj 0.5% 30 ML Vial ONE (17:07)
[2018-04-08 17:19] LABS: INR 1.5 Ratio; Prothrombin Time 15.5 sec (9.8-11.6)
[2018-04-08] MEDS ORDERED: fentaNYL Citrate Inj 100 MCG/2 ML Ampul ONE (19:52)
[2018-04-08] MEDS ORDERED: Propofol Inj 500 MG/50 ML Vial ONE (19:53)
[2018-04-08] MEDS ORDERED: Dexmedetomidine Inj 200 MCG/2 ML Vial ONE (20:09)
--- NOTE | 2018-04-08 21:09 | P.OP ---
- Preoperative Diagnosis (1) Pneumoperitoneum (2) Paraesophageal hernia - Postoperative Diagnosis (1) Pneumoperitoneum (2) Paraesophageal hernia (3) Gastric ulcer, acute with perforation Date of procedure: 04/08/18 Procedure: Diagnostic laparoscopy Laparoscopic partial reduction of paraesophageal hernia Laparoscopic wedge resection of greater curvature of stomach Anesthesia: DERICK Surgeon: Adalid Craig MD Fisher Swordfish: Khari Vizcaino CFA Estimated blood loss (mL): 150 Pathology: other (greater curve of stomach) Operation and Findings: Operative findings: Diffuse contamination of abdominal cavity. Large paraesophageal hernia. Multiple full thickness perforation of greater curvature of stomach. Partial reduction of hiatal hernia, wedge resection of greater curve including 6-8 full thickness ulcer largest 1 cm diamter, washout, drain placement performed. Please see separate dictation from Dr. Valle regarding transesophageal echocardiogram and cardioversion prior to the initiation of the case. The patient received 2 units of FFP prior to penetrating the operating room followed by 2 more units. INR was checked after the beginning of the case which was 1.6 at that time. Procedure in detail: The patient was taken to the operating room and placed in a supine position. General endotracheal anesthesia was induced and the abdomen was prepped and draped in usual sterile fashion. Surgical timeout was performed to verify correct patient procedure and site. Local anesthetic was injected in the skin and subcutaneous tissue in the right upper abdomen and a 5 mm incision created. The 5 mm Optiview trocar with the laparoscope in place was used to directly enter the abdominal cavity which was then insufflated 15 mmHg with CO2 gas. There was fairly extensive intra-abdominal adhesions. A 5 mm port was placed in the right upper abdomen and adhesio lysis in the supraumbilical area was performed. A 5 mm per port was then able to be placed in the supraumbilical area. The right upper lateral abdomen and another 5 mm port was placed. The patient was placed in reverse Trendelenburg position. There was gross contamination of the abdominal cavity with dark brownish green fluid and some exudate. There was no purulence or feculence. Due to extensive adhesions in the mid and lower abdomen I was fully evaluate that area and as my main concern was for gastric perforation I turned my attention to the for that. A final 5 mm trocar was placed in the left lateral abdomen. The neel flex liver retractor was placed through the right lateral abdominal port and used to retract the left lobe of the liver and expose the hiatus. There is some inflammation and protrusion of the lesser sac. There is a large defect at the hiatus of the diaphragm with approximately 1/3-1/2 of the stomach in the chest. There was gross contamination of the hiatal hernia area. The gastrohepatic ligament was opened with the harmonic scalpel dissection carried along to the right argelia. The hernia sac was divided superiorly. Next the short gastrics were taken down from the distal greater curvature to the GE junction using the harmonic scalpel. The left argelia was identified and the hernia sac freed superiorly. The majority of the greater curve was able to be brought down into the abdominal cavity. At this point, it was noted that there was a 1-2 cm ulcer full thickness at the greater curve on the posterior stomach about one third distal from the GE junction. This was closed in 2 layers with simple interrupted 3-0 silk sutures. On further exploration, there was noted to be 5- 8 much smaller but clearly full-thickness perforations of the posterior stomach along the greater curve in the same area. All the perforations and ulcers were identified and the most superior was marked. Due to this finding the patient required wedge resection of this portion of the greater curve of the stomach. The green load Ethicon laparoscopic 60 mm stapler was used to perform this resection which required four fires. This again resected all full-thickness or partial-thickness ulcers which had been visualized. I did not fully reduce the hiatal hernia at this time or repair of the diaphragmatic defect. The upper abdomen was copiously irrigated with warm normal saline approximately 4 L. I was unable to irrigate the entire lower abdomen due to the extensive adhesions. The NG tube was confirmed in adequate position. A OANH drain was placed through the right upper abdominal port into the hiatal hernia area. Another 19 [place] round Brennon drain was placed through the left lateral port in place along the left paracolic gutter. Trochars were removed and the abdomen desufflated. The 12 mm fascial site was closed with 0 Vicryl suture. Skin closed with subcuticular 4-0 Monocryl and Dermabond.
[2018-04-08] MEDS ORDERED: Dexmedetomidine Inj 200 MCG in Sodium Chlor 0.9% Inj 48 ML IV.CONT PRN (22:42)
[2018-04-08 23:06] LABS: Mean Corpuscular Hemoglobin 30.9 pg (27.0-34.0); Mean Corpuscular Volume 93.6 fL (80.0-100.0); Mean Platelet Volume 8.6 fL (7.0-11.0); Platelet Count 293 th/mm3 (150-450); Red Blood Count 2.21 mil/mm3 (4.00-5.30); Red Cell Distribution Width 13.7 % (11.6-17.2)
[2018-04-08 23:10] LABS: Hematocrit 20.7 % (35.0-46.0); Hemoglobin 6.8 gm/dL (11.6-15.3)
[2018-04-08 23:11] LABS: Calcium 8.6 mg/dL (8.5-10.1); Carbon Dioxide 23.4 meq/L (21.0-32.0); Potassium 4.5 meq/L (3.5-5.1)
--- NOTE | 2018-04-08 23:12 | XR ---
EXAM DATE: 04/08/2018 11:05 PM EDT AGE/SEX: 77 years / Female INDICATIONS: ET tube placement. Respiratory distress. CLINICAL DATA: This is the patient's subsequent encounter. Patient reports that signs and symptoms h ave been present for 4 - 6 days and indicates a pain score of Nonresponsive. MEDICAL/SURGICAL HISTORY: . Congestive heart failure. Chronic obstructive pulmonary disease. Hy pertension. Aortic stenosis. . CABG. COMPARISON: C, CHEST 1V SINGLE AP, 04/08/2018. . FINDINGS: Is present with tip several centimeters above the marium. Nasogastric tube coils in the stomach. Left subclavian central catheter is present in good position. Aeration has improved with improvement in l hung volumes and decrease in bilateral pleural-parenchymal opacity. Cardiac contours are grossly satis factory. CONCLUSION: Satisfactory tube and line positioning. Improved aeration. Electronically signed by: Caden Barnard MD 04/08/2018 11:11 PM EDT
[2018-04-08] MEDS: Melatonin 5 MG Tablet PO SCH (23:21)
[2018-04-08 23:30] LABS: Eosinophils 1 % (0-4); Lymphocytes 8 % (9-44); Metamyelocytes 3 % (0-1); Monocytes 9 % (0-8); Platelet Estimate Normal (Normal); Platelet Morphology Normal (Normal); RBC Morphology Normal (Normal)
[2018-04-08] MEDS ORDERED: Sodium Chlor 0.9% Inj 250 ML IV.SIG SCH (23:45)
[2018-04-08] MEDS: Dextrose 5%/Lactated Ringer's 1,000 ML IV.CONT SCH (23:51)
[2018-04-09 00:45] LABS: Activated Partial Thrombo Time 31.3 sec (23.4-31.7); INR 1.7 Ratio; Prothrombin Time 17.6 sec (9.8-11.6)
[2018-04-09] MEDS: Piperacil/Tazo 3.375 GM Premix 50 ML IV.SIG SCH ×5 (01:05→22:51)
[2018-04-09] MEDS: fentaNYL 10 mcg/mL Premix Drip 2,500 MCG/250 ML BAG IV.SIG PRN (01:06)
[2018-04-09] MEDS: Pantoprazole Inj 40 MG Vial IV.PUSH SCH ×3 (01:06→22:53)
[2018-04-09] MEDS: Insulin NovoLOG Aspart Correctional Sugar Inj SQ SCH ×5 (01:07→21:53)
[2018-04-09] MEDS: Oral Hygiene Kit OROPHARYNG SCH ×4 (01:10→17:11)
[2018-04-09] MEDS: Levothyroxine 100 MCG Tablet PO SCH (05:39)
[2018-04-09 05:47] LABS: Baso % (Auto) 0.2 % (0.0-2.0); Eos % (Auto) 0.3 % (0.0-4.0); Hematocrit 26.8 % (35.0-46.0); Hemoglobin 9.6 gm/dL (11.6-15.3); Lymph # (Auto) 0.6 th/mm3 (1.0-4.8); Lymph % (Auto) 12.1 % (9.0-44.0); Mean Corpuscular HGB Conc 35.7 % (32.0-36.0); Mean Corpuscular Volume 86.7 fL (80.0-100.0); Mean Platelet Volume 7.9 fL (7.0-11.0); Mono # (Auto) 0.5 th/mm3 (0.0-0.9); Mono % (Auto) 9.1 % (0.0-8.0); Neut % (Auto) 78.3 % (16.0-70.0); Platelet Count 219 th/mm3 (150-450); Red Cell Distribution Width 15.7 % (11.6-17.2); White Blood Count 5.1 th/mm3 (4.0-11.0)
[2018-04-09 05:55] LABS: INR 1.9 Ratio; Prothrombin Time 19.3 sec (9.8-11.6)
[2018-04-09 06:22] LABS: Alanine Aminotransferase 261 U/L (10-53); Albumin 2.4 g/dL (3.4-5.0); Alkaline Phosphatase 44 U/L (45-117); Anion Gap 10 meq/L (5-15); Aspartate Aminotransferase 710 U/L (15-37); Blood Urea Nitrogen 72 mg/dL (7-18); Calcium 8.2 mg/dL (8.5-10.1); Carbon Dioxide 25.1 meq/L (21.0-32.0); Chloride 111 meq/L (98-107); Glomerular Filtration Rate 24 mL/min (>89); Glucose,Random 117 mg/dL (74-106); Magnesium 2.6 mg/dL (1.5-2.5); Phosphorus 4.2 mg/dL (2.5-4.9); Potassium 3.8 meq/L (3.5-5.1); Sodium 146 meq/L (136-145); Total Protein 5.1 g/dL (6.4-8.2)
[2018-04-09 06:34] LABS: Lymphocytes 7 % (9-44); Metamyelocytes 2 % (0-1); Monocytes 1 % (0-8); Ovalocytes 1+; Platelet Estimate Normal (Normal); Toxic Granulation 1+
--- NOTE | 2018-04-09 09:04 | P.PNCC ---
Subjective Subjective Remarks/Hospital Course: This is a 77-year-old female. Date of admission 04/04/2018. Date of consultation 04/06/2018. Patient has no history of aortic stenosis, coronary disease, hypertension, hyperlipidemia, gastroesophageal reflux disease, hypothyroidism and depression. On 04/04, patient had a two-vessel CABG ZAPATA to LAD, reverse saphenous vein graft to OM of left circumflex with left EVH and CLARA excision. Without complications. Today, patient this morning was in atrial fibrillation with rapid ventricular response. Received 150 mg IV amiodarone and started on oral amiodarone 400 mg along with 25 mg of oral metoprolol tartrate.. She became bradycardic this afternoon and we are asked to evaluate the patient. She is received 2 g of calcium chloride and is currently been started on dopamine drip. Her heart rate and blood pressure immediately improved after the infusion of calcium chloride. In reviewing laboratories, potassium magnesium are within normal limits. She does have a new leukocytosis of 19,000. She denies shortness of breath. She is more confused likely due to hypoperfusion 04/07 Patient is lying in bed in NAD. Feeling nauseas, denies any abdominal pain. 04/08 Patient was given Lopressor, Cardizem and Digoxin overnight for tachycardic became hypotensive and started on Neosyn ( current MAP 81mmHg). Renal function worse today with Cr: 2.22 from 1.76 04/09 Patient s/p Laparoscopic partial reduction of paraesophageal hernia and wedge resection of greater curvature of stomach. Remains intubated postop on Levophed 3 mics, sedated with Fentanyl and on is Precedex drip. s/p [id number] PRBC overnight Hgb 9.6 this morning from 6.8 Objective Vital Signs / I&O: Vital Signs 04/08/18 11:00 04/08/18 13:44 04/08/18 14:40 Temperature 97.6 F 98.3 F Pulse Rate 118 H 119 H 137 H Respiratory Rate 20 18 22 Blood Pressure 95/46 L 112/70 Pulse Oximetry 97 94 L 04/08/18 14:57 04/08/18 15:00 04/08/18 15:15 Temperature 98.2 F 98.2 F 98.2 F Pulse Rate 137 H 126 H 121 H Respiratory Rate 20 20 20 Blood Pressure 126/89 166/63 H 166/63 H Pulse Oximetry 97 92 L 97 04/08/18 21:37 04/08/18 22:00 04/08/18 23:00 Temperature 98.3 F Pulse Rate 72 Respiratory Rate 20 16 16 Blood Pressure 148/60 H Pulse Oximetry 97 99 95 04/09/18 00:00 04/09/18 00:30 04/09/18 01:33 EDT Temperature 97.7 F 97.7 F Pulse Rate 64 66 69 Respiratory Rate 16 16 16 Blood Pressure 143/59 H 109/45 L Pulse Oximetry 97 98 04/09/18 01:53 EDT 04/09/18 02:59 04/09/18 04:00 Temperature 97.7 F 98.1 F 98.1 F Pulse Rate 69 63 83 Respiratory Rate 16 16 16 Blood Pressure 109/45 L 119/53 L 126/58 L Pulse Oximetry 98 100 98 04/09/18 07:37 Temperature Pulse Rate 103 H Respiratory Rate 17 Blood Pressure Pulse Oximetry 99 Intake & Output 04/08/18 04/09/18 04/09/18 19:59 06:59 18:59 Intake Total Output Total Balance Weight Intake: IV Zosyn 3.375 GM Premix 50 ML @ 200 mls/hr IV.SIG Q6H YASH Rx#: [id number] Flagyl 500 MG Inj 100 ML @ 100 mls/hr IV.SIG Q8H YASH Rx#: [id number] Oral Anesthesia Amount Other Plasma Thawed 5 Day Cp2d Unit [id number] Intake (Blood Product) Amt Plasma Thawed 5 Day Cp2d Unit [id number] Plasma Thawed 5 Day Cp2d Unit [id number] Rbc As-3 Leukoreduced Unit [id number] Rbc As-3 Leukoreduced Unit [id number] Output: Urine Estimated Blood Loss Urine Amount (Catheter) Indwelling Urethral Catheter Gastric Drainage Right Nare Nasogastric Tube Wound Drainage # 1 Right Anterior Abdomen # 2 Left Anterior Abdomen Other: # Incontinent Voids # Bowel Movements Result Diagrams: 04/09/18 05:30 04/09/18 05:30 Other Results: Laboratory Results - last 12 hr 04/08/18 04/08/18 04/08/18 22:30 22:30 22:30 WBC 6.0 D RBC 2.21 L Hgb 6.8 L* D Hct 20.7 L* MCV 93.6 MCH 30.9 MCHC 33.0 RDW 13.7 Plt Count 293 D MPV 8.6 Prelim Diff (Auto) Slide review pending Neut % (Auto) Lymph % (Auto) [place] % (Auto) Eos % (Auto) Baso % (Auto) Neut # (Auto) Lymph # (Auto) [place] # (Auto) Eos # (Auto) Baso # (Auto) WBC Differential Manual diff final Seg Neuts % (Manual) 55 Band Neuts % (Manual) 24 H Lymphocytes % (Manual) 8 L Monocytes % (Manual) 9 H Eosinophils % (Manual) 1 Metamyelocytes % (Man) 3 H Abs Neuts (Manual) 4.9 Differential Comment . Toxic Granulation Platelet Estimate Normal Platelet Morphology Normal RBC Morphology Normal Ovalocytes PT 17.6 H INR 1.7 APTT 31.3 Fibrinogen 353 Sodium 143 Potassium 4.5 Chloride 109 H Carbon Dioxide 23.4 Anion Gap 11 BUN 74 H Creatinine 2.18 H Estimated GFR 22 L POC Glucose Random Glucose 96 Lactic Acid Calcium 8.6 Phosphorus Magnesium Total Bilirubin AST ALT Alkaline Phosphatase Total Protein Albumin MTS Gel Crossmatch 04/08/18 04/08/18 04/09/18 23:16 23:59 01:13 EST WBC RBC Hgb Hct MCV MCH MCHC RDW Plt Count MPV Prelim Diff (Auto) Neut % (Auto) Lymph % (Auto) [place] % (Auto) Eos % (Auto) Baso % (Auto) Neut # (Auto) Lymph # (Auto) [place] # (Auto) Eos # (Auto) Baso # (Auto) WBC Differential Seg Neuts % (Manual) Band Neuts % (Manual) Lymphocytes % (Manual) Monocytes % (Manual) Eosinophils % (Manual) Metamyelocytes % (Man) Abs Neuts (Manual) Differential Comment Toxic Granulation Platelet Estimate Platelet Morphology RBC Morphology Ovalocytes PT INR APTT Fibrinogen Sodium Potassium Chloride Carbon Dioxide Anion Gap BUN Creatinine Estimated GFR POC Glucose 100 Random Glucose Lactic Acid 2.0 Calcium Phosphorus Magnesium Total Bilirubin AST ALT Alkaline Phosphatase Total Protein Albumin MTS Gel Crossmatch See Detail 04/09/18 04/09/18 04/09/18 05:30 05:30 05:30 WBC 5.1 RBC 3.10 L Hgb 9.6 L D Hct 26.8 L MCV 86.7 D MCH 31.0 MCHC 35.7 RDW 15.7 Plt Count 219 MPV 7.9 Prelim Diff (Auto) Slide review pending Neut % (Auto) 78.3 H Lymph % (Auto) 12.1 [place] % (Auto) 9.1 H Eos % (Auto) 0.3 Baso % (Auto) 0.2 Neut # (Auto) 4.0 Lymph # (Auto) 0.6 L [place] # (Auto) 0.5 Eos # (Auto) 0.0 Baso # (Auto) 0.0 WBC Differential Manual diff final Seg Neuts % (Manual) 59 Band Neuts % (Manual) 31 H Lymphocytes % (Manual) 7 L Monocytes % (Manual) 1 Eosinophils % (Manual) Metamyelocytes % (Man) 2 H Abs Neuts (Manual) 4.7 Differential Comment . Toxic Granulation 1+ H Platelet Estimate Normal Platelet Morphology Enlarged H RBC Morphology Ovalocytes 1+ H PT 19.3 H INR 1.9 APTT Fibrinogen Sodium 146 H Potassium 3.8 Chloride 111 H Carbon Dioxide 25.1 Anion Gap 10 BUN 72 H Creatinine 1.99 H Estimated GFR 24 L POC Glucose Random Glucose 117 H Lactic Acid Calcium 8.2 L Phosphorus 4.2 Magnesium 2.6 H Total Bilirubin 1.3 H AST 710 H ALT 261 H Alkaline Phosphatase 44 L Total Protein 5.1 L Albumin 2.4 L MTS Gel Crossmatch Imaging: Abdomen X-Ray 04/07/18 00:00 CONCLUSION: Nonspecific bowel gas pattern with scattered small and large bowel gas. Abdomen/Bladder Ultrasound 04/08/18 00:00 CONCLUSION: Kidneys within normal limits. Right pleural effusion noted. Abdomen/Pelvis CT 04/08/18 10:09 CONCLUSION: 1. Prominent amount of free air and free fluid in the upper abdomen and within a large hiatal hernia. A large portion of the stomach is in a hiatal hernia. Most likely etiology for the findings is a perforated gastric ulcer. Findings discussed with the patient's nurse. 2. Distended gallbladder. Chest CT 04/08/18 10:09 CONCLUSION: 1. Large hiatal hernia containing a large portion of the stomach with moderate amount of free air in the hiatal hernia and in the upper abdomen. Distal gastric wall thickening and extraluminal fluid adjacent to the distal stomach. Most likely etiology for the findings is a perforated gastric ulcer. Free fluid is also seen in the upper abdomen. 2. New bilateral lower lobe atelectasis/consolidation and small bilateral pleural effusions. Chest X-Ray 04/08/18 22:44 CONCLUSION: Satisfactory tube and line positioning. Improved aeration. Objective Remarks: GENERAL: Patient is 77 yo lying in bed intubated and sedated SKIN: Warm and dry. HEAD: Normocephalic. EYES: No scleral icterus. No injection or drainage. NECK: Supple, trachea midline. No JVD or lymphadenopathy. CARDIOVASCULAR: Tachycardic without murmurs, gallops, or rubs. RESPIRATORY: Breath sounds equal bilaterally. No accessory muscle use. GASTROINTESTINAL: Abdomen soft, non-tender, nondistended. MUSCULOSKELETAL: No cyanosis, or edema. Neuro: Sedated Assessment and Plan - Assessment and Plan Plan: Neuro/Psych: Depressive disorder NOS History of TIA On Fentanyl infusion for sedation and analgesia. On Precedex drip. Daily sedation vacation Currently on paroxetine 10 mg daily for depression. CV: Postoperative CABG x2 ZAPATA to LAD, reverse saphenous vein graft to OM with left EVH and CLARA excision -Dr. Warner Atrial fibrillation Essential hypertension by history Hyperlipidemia Coronary artery disease status post PTCA left anterior descending proximal Wean off Levophed monitor HR and BP keep MAP>65mmHG Lactic acid 2.0 Cardiac catheterization 417 revealed left ear 0.48 cm area. EF 55-60%. Moderate aortic regurgitation. On rosuvastatin 10 mg daily at home. Noted allergies to atorvastatin simvastatin Continue aspirin 81 mg daily Cards is following- Dr. Valle Resp: Obstructive sleep apnea Continue with vent support keep sats> 92% Bronchodilators, ICU vent bundle. Check ABG CXR last night: Improved aeration GI: s/p Laparoscopic partial reduction of paraesophageal hernia, wedge resection of greater curvature of stomach 04/08 Diverticulosis Gastroesophageal reflux disease Hiatal hernia Pantoprazole for GI prophylaxis Docusate sodium/senna 1 tablet twice daily for hours along with polythene glycol 17 g daily KUB abdomen 04/07 : Nonspecific bowel gas pattern with scattered small and large bowel gas. 04/08 CT abd/pelvis- Prominent amount of free air and free fluid in the upper abdomen and within a large hiatal hernia. A large portion of the stomach is in a hiatal hernia. Most likely etiology for the findings is a perforated gastric ulcer. 04/08 s/p Laparoscopic partial reduction of paraesophageal hernia, wedge resection of greater curvature of stomach, washout, drain placement performed. Monitor OANH drainage- Surgery- Dr. Craig. Endo: Hypothyroidism Currently on levothyroxine 100 mcg p.o. daily TSH:0.72 Sliding scale insulin with aspart insulin Renal: Acute kidney injury Monitor renal function, I/O's, electrolytes replacement as needed. Avoid nephrotoxins Cr: 1.99 from 2.18. Renal is following- Dr. Holliday On D5LR@84ml/hr Renal US: No hydronephrosis Heme: Leukocytosis Normocytic anemia Chronic warfarin use Monitor CBC, Coags daily. s/p 4uFFP and Vitamin K 5mgx1 for OR yesterday INR 1.9 today from 3.8 04/08 s/p transfusion 2u PRBC overnight- ID: On empiric abx ( Zosyn, Flagyl, Diflucan) Monitor for signs of infections ( fever, WBC) Follow up BC 04/08: NGTD ID eval MSK: Elevated BMI Osteoporosis/osteoarthritis Lumbar radiculopathy Physical therapy evaluate and treat Access -Utilize peripheral IV. Central line left subclavian cordis with dual-lumen placed 04/04 Prophylaxis -GI -pantoprazole -DVT-SCD/pharmacological prophylaxis- off Coumadin- INR 1.9 today CCT 35 mins
[2018-04-09] MEDS: Docusate Sodium 100 MG Capsule PO SCH ×2 (09:28→21:53)
[2018-04-09] MEDS: Chlorhexidine 0.12% Oral Kit 15 ML UDC OROPHARYNG SCH ×2 (09:28→21:53)
[2018-04-09] MEDS: Multivitamin/Minerals Therapeutic Tablet PO SCH (09:44)
[2018-04-09] MEDS: Polyethylene Glycol 3350 17 GM Packet PO SCH (09:44)
--- NOTE | 2018-04-09 09:45 | P.PNCV ---
- Note Subjective/Hospital Course: 77/ female initially seen on 03/13/18 in [facility] office with Dr Warner, hx of progressive SOB over past few months . Known hx of CAD previous PCI's , ECHO revealed severe . Cardiac cath revealed multivessel disease PMH: Afib, Aortic stenosis, Asthma, CAD (coronary artery disease), CHF ( congestive heart failure), HLD (hyperlipidemia), HTN (hypertension) Hiatal hernia, Hypothyroid, LBBB (left bundle branch block), Mitral regurgitation, Myocardial infarct, Sleep apnea, TIA (transient ischemic attack) UTI (urinary tract infection) 04/04 pt electively admitted for surgery PREPROCEDURE DIAGNOSES 1. Severe Multi Vessel Coronary Artery Disease. 2. Severe aortic stenosis 3. Atrial fibrillation status post ablation POSTPROCEDURE DIAGNOSES 1. Severe Multi Vessel Coronary Artery Disease. 2. Severe aortic stenosis 3. Atrial fibrillation status post ablation 4. Heavily calcified ascending aorta SURGICAL PROCEDURE 1. Clampless off-pump Coronary Artery Bypass Grafting x 2 with Left Internal Mammary Artery (ZAPATA) to Left Anterior Descending (LAD), reverse saphenous vein graft to obtuse Marginal branch of the left Circumflex artery 2. Left leg Endoscopic Vein Earle 3. Left atrial appendage excision pt extubated after surgery crystalloid 2300cc, 1500cc EBL, 750cc cell saver 04/05 pt up in chair ECG with some mild global st elevation / pericarditis + rub, no pressors , stable for transfer, resume BB will need to resume coumadin when chest tubes out 04/06 chest tube dc without difficultly pt went into afib RVR last night and this am received 2nd bolus of amiodarone / po amiodarone increased will resume coumadin / this pm goal 2.5 / followed by Dr Menendez at home 04/07 pt was transferred back to CVICU yesterday became bradycardic / hypotensive / despite IV fluids calcium chloride / required Dopamine gtt / remains in afib rate now 90's , BP improved discussed with Dr Warner/ will consult cardiology regarding cardiac meds start lovenox and coumadin/ dc when INR > 2.0 dc fem line / consult PT / observe in CVICU today 04/08 Remains in atrial fibrillation with rapid ventricular response heart rate in the 120s Overnight events noted she received diltiazem, digoxin and Lopressor for heart rate with resultant hypotension requiring Dayday-Synephrine which is presently being weaned. Remains somewhat labile with her blood pressure Had echo this morning. Awaiting results Renal function worsening. Will consult nephrology. Likely secondary to hypoperfusion If ventricular function is okay, will give gentle hydration 04/09 Operative findings noted Remains intubated and mechanically ventilated On Levophed for hemodynamic support. Weaning as tolerated Greatly appreciate Dr. Craig's input and assistance Renal function improving. Appreciate Dr. Holliday's input Objective: Vital Signs - 24 hr 04/08/18 11:00 04/08/18 13:44 04/08/18 14:40 Temperature 97.6 F 98.3 F Pulse Rate 118 H 119 H 137 H Respiratory Rate 20 18 22 Blood Pressure 95/46 L 112/70 Pulse Oximetry 97 94 L 04/08/18 14:57 04/08/18 15:00 04/08/18 15:15 Temperature 98.2 F 98.2 F 98.2 F Pulse Rate 137 H 126 H 121 H Respiratory Rate 20 20 20 Blood Pressure 126/89 166/63 H 166/63 H Pulse Oximetry 97 92 L 97 04/08/18 21:37 04/08/18 22:00 04/08/18 23:00 Temperature 98.3 F Pulse Rate 72 Respiratory Rate 20 16 16 Blood Pressure 148/60 H Pulse Oximetry 97 99 95 04/09/18 00:00 04/09/18 00:30 04/09/18 01:33 EDT Temperature 97.7 F 97.7 F Pulse Rate 64 66 69 Respiratory Rate 16 16 16 Blood Pressure 143/59 H 109/45 L Pulse Oximetry 97 98 04/09/18 01:53 EDT 04/09/18 02:59 04/09/18 04:00 Temperature 97.7 F 98.1 F 98.1 F Pulse Rate 69 63 83 Respiratory Rate 16 16 16 Blood Pressure 109/45 L 119/53 L 126/58 L Pulse Oximetry 98 100 98 04/09/18 07:37 Temperature Pulse Rate 103 H Respiratory Rate 17 Blood Pressure Pulse Oximetry 99 Labs: Laboratory Results - last 12 hr 04/08/18 04/08/18 04/08/18 22:30 22:30 22:30 WBC 6.0 D RBC 2.21 L Hgb 6.8 L* D Hct 20.7 L* MCV 93.6 MCH 30.9 MCHC 33.0 RDW 13.7 Plt Count 293 D MPV 8.6 Prelim Diff (Auto) Slide review pending Neut % (Auto) Lymph % (Auto) [place] % (Auto) Eos % (Auto) Baso % (Auto) Neut # (Auto) Lymph # (Auto) [place] # (Auto) Eos # (Auto) Baso # (Auto) WBC Differential Manual diff final Seg Neuts % (Manual) 55 Band Neuts % (Manual) 24 H Lymphocytes % (Manual) 8 L Monocytes % (Manual) 9 H Eosinophils % (Manual) 1 Metamyelocytes % (Man) 3 H Abs Neuts (Manual) 4.9 Differential Comment . Toxic Granulation Platelet Estimate Normal Platelet Morphology Normal RBC Morphology Normal Ovalocytes PT 17.6 H INR 1.7 APTT 31.3 Fibrinogen 353 Sodium 143 Potassium 4.5 Chloride 109 H Carbon Dioxide 23.4 Anion Gap 11 BUN 74 H Creatinine 2.18 H Estimated GFR 22 L POC Glucose Random Glucose 96 Lactic Acid Calcium 8.6 Phosphorus Magnesium Total Bilirubin AST ALT Alkaline Phosphatase Total Protein Albumin MTS Gel Crossmatch 04/08/18 04/08/18 04/09/18 23:16 23:59 01:13 EST WBC RBC Hgb Hct MCV MCH MCHC RDW Plt Count MPV Prelim Diff (Auto) Neut % (Auto) Lymph % (Auto) [place] % (Auto) Eos % (Auto) Baso % (Auto) Neut # (Auto) Lymph # (Auto) [place] # (Auto) Eos # (Auto) Baso # (Auto) WBC Differential Seg Neuts % (Manual) Band Neuts % (Manual) Lymphocytes % (Manual) Monocytes % (Manual) Eosinophils % (Manual) Metamyelocytes % (Man) Abs Neuts (Manual) Differential Comment Toxic Granulation Platelet Estimate Platelet Morphology RBC Morphology Ovalocytes PT INR APTT Fibrinogen Sodium Potassium Chloride Carbon Dioxide Anion Gap BUN Creatinine Estimated GFR POC Glucose 100 Random Glucose Lactic Acid 2.0 Calcium Phosphorus Magnesium Total Bilirubin AST ALT Alkaline Phosphatase Total Protein Albumin MTS Gel Crossmatch See Detail 04/09/18 04/09/18 04/09/18 05:30 05:30 05:30 WBC 5.1 RBC 3.10 L Hgb 9.6 L D Hct 26.8 L MCV 86.7 D MCH 31.0 MCHC 35.7 RDW 15.7 Plt Count 219 MPV 7.9 Prelim Diff (Auto) Slide review pending Neut % (Auto) 78.3 H Lymph % (Auto) 12.1 [place] % (Auto) 9.1 H Eos % (Auto) 0.3 Baso % (Auto) 0.2 Neut # (Auto) 4.0 Lymph # (Auto) 0.6 L [place] # (Auto) 0.5 Eos # (Auto) 0.0 Baso # (Auto) 0.0 WBC Differential Manual diff final Seg Neuts % (Manual) 59 Band Neuts % (Manual) 31 H Lymphocytes % (Manual) 7 L Monocytes % (Manual) 1 Eosinophils % (Manual) Metamyelocytes % (Man) 2 H Abs Neuts (Manual) 4.7 Differential Comment . Toxic Granulation 1+ H Platelet Estimate Normal Platelet Morphology Enlarged H RBC Morphology Ovalocytes 1+ H PT 19.3 H INR 1.9 APTT Fibrinogen Sodium 146 H Potassium 3.8 Chloride 111 H Carbon Dioxide 25.1 Anion Gap 10 BUN 72 H Creatinine 1.99 H Estimated GFR 24 L POC Glucose Random Glucose 117 H Lactic Acid Calcium 8.2 L Phosphorus 4.2 Magnesium 2.6 H Total Bilirubin 1.3 H AST 710 H ALT 261 H Alkaline Phosphatase 44 L Total Protein 5.1 L Albumin 2.4 L MTS Gel Crossmatch 04/09/18 09:24 WBC RBC Hgb Hct MCV MCH MCHC RDW Plt Count MPV Prelim Diff (Auto) Neut % (Auto) Lymph % (Auto) [place] % (Auto) Eos % (Auto) Baso % (Auto) Neut # (Auto) Lymph # (Auto) [place] # (Auto) Eos # (Auto) Baso # (Auto) WBC Differential Seg Neuts % (Manual) Band Neuts % (Manual) Lymphocytes % (Manual) Monocytes % (Manual) Eosinophils % (Manual) Metamyelocytes % (Man) Abs Neuts (Manual) Differential Comment Toxic Granulation Platelet Estimate Platelet Morphology RBC Morphology Ovalocytes PT INR APTT Fibrinogen Sodium Potassium Chloride Carbon Dioxide Anion Gap BUN Creatinine Estimated GFR POC Glucose 105 Random Glucose Lactic Acid Calcium Phosphorus Magnesium Total Bilirubin AST ALT Alkaline Phosphatase Total Protein Albumin MTS Gel Crossmatch Result Diagrams: 04/09/18 05:30 04/09/18 05:30 - Plan (1) Severe aortic stenosis Plan: will need planned TAVR after discharge (4) Atrial fibrillation Plan: s/p atrial appendage excision start lovenox / dc when INR>2.0 resume Coumadin consult cardiology regarding cardiac meds for rate control (5) COPD (chronic obstructive pulmonary disease) Plan: nebs ezpap and acapella (6) S/P CABG (coronary artery bypass graft) Plan: ASA, resume home med crestor pulm toileting , nebs ezpap, acapella OOB ambulate eval for rehab at discharge
[2018-04-09] MEDS: Dextrose 5%/Lactated Ringer's 1,000 ML IV.CONT SCH ×2 (11:02→22:52)
--- NOTE | 2018-04-09 11:51 | ECHRPT ---
Indication: a fib CONCLUSIONS Limited trans-esophageal echo done after intubation for surgery to see about thrombus in left atrium , left ventricle or residual left atrial appendage, before cardioversion. Left atrium with no thrombus or spontaneous echo contrast noted. Left atrial appendage with small residual appendage after ligation, no thrombus noted. BP: / HR: Rhythm: Atrial fibrillation Technical Quality:Fair Medications Complications Proc. Components Patient intubated by anesthesia for planned surgery. FINDINGS LEFT VENTRICLE No apical thrombus noted. LEFT ATRIUM Left atrium with no thrombus or spontaneous echo contrast noted ATRIAL APPENDAGES Left atrial appendage with small residual appendage after ligation, no thrombus noted Regulo Valle DO (Electronically Signed) Final Date:09 April 2018 11:51
--- NOTE | 2018-04-09 11:59 | P.PCNCA ---
- Cardiology Procedure Note Procedure: Cardioversion Procedure Date: 04/08/18 Procedure Detail: Due to rapid AFib which is difficult to control, need for surgery, severe with moderate AR and overall concern for hemodynamics randolph-operative and post- operative, decided that AMBROCIO with cardioversion was best option for the patient. I discussed this with the patient. Also discussed with the son over the phone , consent was obtained. Patient was intubated by anesthesia for planned surgery. Limited AMBROCIO was done to determine if left atrium or residual left atrial appendage had thrombus. None noted. Pads were placed. Cardioverted at 200J with one shock. Noted to be in sinus rhythm post-cardioversion. Tolerated well.
[2018-04-09] MEDS ORDERED: Dexmedetomidine Inj 1,000 MCG in Sodium Chlor 0.9% Inj 240 ML IV.CONT PRN (12:12)
--- NOTE | 2018-04-09 13:42 | P.PNGS ---
Subjective Patient reports: other (Patient remains intubated, sedated.) Physical Exam Vital signs: Vital Signs 04/08/18 14:40 04/08/18 14:57 04/08/18 15:00 Temperature 98.3 F 98.2 F 98.2 F Pulse Rate 137 H 137 H 126 H Respiratory Rate 22 20 20 Blood Pressure 112/70 126/89 166/63 H Pulse Oximetry 94 L 97 92 L 04/08/18 15:15 04/08/18 21:37 04/08/18 22:00 Temperature 98.2 F 98.3 F Pulse Rate 121 H 72 Respiratory Rate 20 20 16 Blood Pressure 166/63 H 148/60 H Pulse Oximetry 97 97 99 04/08/18 23:00 04/09/18 00:00 04/09/18 00:30 Temperature 97.7 F Pulse Rate 64 66 Respiratory Rate 16 16 16 Blood Pressure 143/59 H Pulse Oximetry 95 97 04/09/18 01:33 EDT 04/09/18 01:53 EDT 04/09/18 02:59 Temperature 97.7 F 97.7 F 98.1 F Pulse Rate 69 69 63 Respiratory Rate 16 16 16 Blood Pressure 109/45 L 109/45 L 119/53 L Pulse Oximetry 98 98 100 04/09/18 04:00 04/09/18 07:00 04/09/18 07:37 Temperature 98.1 F 98.8 F Pulse Rate 83 96 H 103 H Respiratory Rate 16 16 17 Blood Pressure 126/58 L 110/57 L Pulse Oximetry 98 99 99 04/09/18 10:33 04/09/18 11:00 04/09/18 11:31 Temperature 99.1 F Pulse Rate 98 H 95 H Respiratory Rate 16 16 16 Blood Pressure 128/62 Pulse Oximetry 99 99 Intake & Output 04/08/18 04/09/18 04/09/18 19:59 06:59 18:59 Intake Total 2500 / 2500 Output Total Balance 2500 / 2500 Weight Intake: IV 2500 / 2500 D5W/LR Inj 1,000 ML @ 84 mls/hr 1000 / 1000 IV.CONT .[id number] [facility] Rx#: [id number] Diflucan 400 mg Premix Bag 200 200 / 200 ML @ 100 mls/hr IV.SIG ONCE ONE Rx#:[id number] Zosyn 3.375 GM Premix 50 ML @ 50 / 50 200 mls/hr IV.SIG Q6H [facility] Rx#: [id number] Flagyl 500 MG Inj 100 ML @ 100 mls/hr IV.SIG Q8H [facility] Rx#: [id number] Oral Anesthesia Amount Other Plasma Thawed 5 Day Cp2d Unit [id number] Intake (Blood Product) Amt Plasma Thawed 5 Day Cp2d Unit [id number] Plasma Thawed 5 Day Cp2d Unit [id number] Rbc As-3 Leukoreduced Unit [id number] Rbc As-3 Leukoreduced Unit [id number] Output: Urine Estimated Blood Loss Urine Amount (Catheter) Indwelling Urethral Catheter Gastric Drainage Right Nare Nasogastric Tube Wound Drainage # 1 Right Anterior Abdomen # 2 Left Anterior Abdomen Other: # Incontinent Voids # Bowel Movements - Routine Respiratory Exam Present: CTA bilaterally - Routine Abdominal Exam Present: soft Comments: Abdomen is benign. - Urinary Catheter Management Indwelling Temp Sensing Catheter Cath placed during this visit: yes Urethral indwelling: No Reason for continuing: Hourly intake/output Insertion date: 04/04/18 Insertion time: 07:52 Indwelling Urethral Catheter Cath placed during this visit: yes Reason for continuing: Hourly intake/output Insertion date: 04/08/18 Insertion time: 16:51 Results - Labs 04/09/18 05:30 04/09/18 05:30 Laboratory Results - last 24 hr 04/08/18 04/08/18 04/08/18 14:02 16:53 17:24 WBC RBC Hgb Hct MCV MCH MCHC RDW Plt Count MPV Prelim Diff (Auto) Neut % (Auto) Lymph % (Auto) [place] % (Auto) Eos % (Auto) Baso % (Auto) Neut # (Auto) Lymph # (Auto) [place] # (Auto) Eos # (Auto) Baso # (Auto) WBC Differential Seg Neuts % (Manual) Band Neuts % (Manual) Lymphocytes % (Manual) Monocytes % (Manual) Eosinophils % (Manual) Metamyelocytes % (Man) Abs Neuts (Manual) Differential Comment Toxic Granulation Platelet Estimate Platelet Morphology RBC Morphology Ovalocytes PT 15.5 H D INR 1.5 APTT Fibrinogen Sodium Potassium Chloride Carbon Dioxide Anion Gap BUN Creatinine Estimated GFR POC Glucose Random Glucose Lactic Acid Calcium Phosphorus Magnesium Total Bilirubin AST ALT Alkaline Phosphatase Total Protein Albumin Blood Type O Positive Antibody Screen Negative MTS Gel Crossmatch See Detail Blood Bank Comment 04/08/18 04/08/18 04/08/18 22:30 22:30 22:30 WBC 6.0 D RBC 2.21 L Hgb 6.8 L* D Hct 20.7 L* MCV 93.6 MCH 30.9 MCHC 33.0 RDW 13.7 Plt Count 293 D MPV 8.6 Prelim Diff (Auto) Slide review pending Neut % (Auto) Lymph % (Auto) [place] % (Auto) Eos % (Auto) Baso % (Auto) Neut # (Auto) Lymph # (Auto) [place] # (Auto) Eos # (Auto) Baso # (Auto) WBC Differential Manual diff final Seg Neuts % (Manual) 55 Band Neuts % (Manual) 24 H Lymphocytes % (Manual) 8 L Monocytes % (Manual) 9 H Eosinophils % (Manual) 1 Metamyelocytes % (Man) 3 H Abs Neuts (Manual) 4.9 Differential Comment . Toxic Granulation Platelet Estimate Normal Platelet Morphology Normal RBC Morphology Normal Ovalocytes PT 17.6 H INR 1.7 APTT 31.3 Fibrinogen 353 Sodium 143 Potassium 4.5 Chloride 109 H Carbon Dioxide 23.4 Anion Gap 11 BUN 74 H Creatinine 2.18 H Estimated GFR 22 L POC Glucose Random Glucose 96 Lactic Acid Calcium 8.6 Phosphorus Magnesium Total Bilirubin AST ALT Alkaline Phosphatase Total Protein Albumin Blood Type Antibody Screen MTS Gel Crossmatch Blood Bank Comment 04/08/18 04/08/18 04/09/18 23:16 23:59 01:13 EST WBC RBC Hgb Hct MCV MCH MCHC RDW Plt Count MPV Prelim Diff (Auto) Neut % (Auto) Lymph % (Auto) [place] % (Auto) Eos % (Auto) Baso % (Auto) Neut # (Auto) Lymph # (Auto) [place] # (Auto) Eos # (Auto) Baso # (Auto) WBC Differential Seg Neuts % (Manual) Band Neuts % (Manual) Lymphocytes % (Manual) Monocytes % (Manual) Eosinophils % (Manual) Metamyelocytes % (Man) Abs Neuts (Manual) Differential Comment Toxic Granulation Platelet Estimate Platelet Morphology RBC Morphology Ovalocytes PT INR APTT Fibrinogen Sodium Potassium Chloride Carbon Dioxide Anion Gap BUN Creatinine Estimated GFR POC Glucose 100 Random Glucose Lactic Acid 2.0 Calcium Phosphorus Magnesium Total Bilirubin AST ALT Alkaline Phosphatase Total Protein Albumin Blood Type Antibody Screen MTS Gel Crossmatch See Detail Blood Bank Comment 04/09/18 04/09/18 04/09/18 05:30 05:30 05:30 WBC 5.1 RBC 3.10 L Hgb 9.6 L D Hct 26.8 L MCV 86.7 D MCH 31.0 MCHC 35.7 RDW 15.7 Plt Count 219 MPV 7.9 Prelim Diff (Auto) Slide review pending Neut % (Auto) 78.3 H Lymph % (Auto) 12.1 [place] % (Auto) 9.1 H Eos % (Auto) 0.3 Baso % (Auto) 0.2 Neut # (Auto) 4.0 Lymph # (Auto) 0.6 L [place] # (Auto) 0.5 Eos # (Auto) 0.0 Baso # (Auto) 0.0 WBC Differential Manual diff final Seg Neuts % (Manual) 59 Band Neuts % (Manual) 31 H Lymphocytes % (Manual) 7 L Monocytes % (Manual) 1 Eosinophils % (Manual) Metamyelocytes % (Man) 2 H Abs Neuts (Manual) 4.7 Differential Comment . Toxic Granulation 1+ H Platelet Estimate Normal Platelet Morphology Enlarged H RBC Morphology Ovalocytes 1+ H PT 19.3 H INR 1.9 APTT Fibrinogen Sodium 146 H Potassium 3.8 Chloride 111 H Carbon Dioxide 25.1 Anion Gap 10 BUN 72 H Creatinine 1.99 H Estimated GFR 24 L POC Glucose Random Glucose 117 H Lactic Acid Calcium 8.2 L Phosphorus 4.2 Magnesium 2.6 H Total Bilirubin 1.3 H AST 710 H ALT 261 H Alkaline Phosphatase 44 L Total Protein 5.1 L Albumin 2.4 L Blood Type Antibody Screen MTS Gel Crossmatch Blood Bank Comment 04/09/18 04/09/18 09:24 12:19 WBC RBC Hgb Hct MCV MCH MCHC RDW Plt Count MPV Prelim Diff (Auto) Neut % (Auto) Lymph % (Auto) [place] % (Auto) Eos % (Auto) Baso % (Auto) Neut # (Auto) Lymph # (Auto) [place] # (Auto) Eos # (Auto) Baso # (Auto) WBC Differential Seg Neuts % (Manual) Band Neuts % (Manual) Lymphocytes % (Manual) Monocytes % (Manual) Eosinophils % (Manual) Metamyelocytes % (Man) Abs Neuts (Manual) Differential Comment Toxic Granulation Platelet Estimate Platelet Morphology RBC Morphology Ovalocytes PT INR APTT Fibrinogen Sodium Potassium Chloride Carbon Dioxide Anion Gap BUN Creatinine Estimated GFR POC Glucose 105 94 Random Glucose Lactic Acid Calcium Phosphorus Magnesium Total Bilirubin AST ALT Alkaline Phosphatase Total Protein Albumin Blood Type Antibody Screen MTS Gel Crossmatch Blood Bank Comment - Imaging Imaging: ITS Impressions Abdomen X-Ray 04/07/18 00:00 CONCLUSION: Nonspecific bowel gas pattern with scattered small and large bowel gas. Abdomen/Bladder Ultrasound 04/08/18 00:00 CONCLUSION: Kidneys within normal limits. Right pleural effusion noted. Abdomen/Pelvis CT 04/08/18 10:09 CONCLUSION: 1. Prominent amount of free air and free fluid in the upper abdomen and within a large hiatal hernia. A large portion of the stomach is in a hiatal hernia. Most likely etiology for the findings is a perforated gastric ulcer. Findings discussed with the patient's nurse. 2. Distended gallbladder. Chest CT 04/08/18 10:09 CONCLUSION: 1. Large hiatal hernia containing a large portion of the stomach with moderate amount of free air in the hiatal hernia and in the upper abdomen. Distal gastric wall thickening and extraluminal fluid adjacent to the distal stomach. Most likely etiology for the findings is a perforated gastric ulcer. Free fluid is also seen in the upper abdomen. 2. New bilateral lower lobe atelectasis/consolidation and small bilateral pleural effusions. Chest X-Ray 04/08/18 22:44 CONCLUSION: Satisfactory tube and line positioning. Improved aeration. 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 Will continue present care; OK from GS standpoint to place patient back on Lovenox, but would not start Warfarin at this point. (3) Severe aortic stenosis Code(s): I35.0 - Nonrheumatic aortic (valve) stenosis Status: Chronic (4) Atrial fibrillation Code(s): I48.91 - Unspecified atrial fibrillation Status: Chronic (5) S/P CABG (coronary artery bypass graft) Code(s): Z95.1 - Presence of aortocoronary bypass graft Status: Acute
[2018-04-09 14:08] LABS: ABG Base Excess -1.2 mmol/L (-2-2); ABG PCO2 29 mmHg (38-42); ABG PO2 100 mmHG (61-120)
--- NOTE | 2018-04-09 14:37 | P.CONID ---
History of Present Illness Service: ID Consult date: 04/09/18 Requesting Physician: Vanessa Vargas Reason for Consult: periotonitis Primary Care Provider: No Primary Care Physician Chief Complaint: Weakness History of Present Illness: 77 F with multiple med problems including Severe Multi Vessel Coronary Artery Disease and Severe aortic stenosis sp Coronary Artery Bypass Grafting x 2 with Left Internal Mammary Artery (ZAPATA) to Left Anterior Descending (LAD), reverse saphenous vein graft to obtuse Marginal branch of the left Circumflex artery by Dr Fermin Warner on 04/04/18 was c/o abd pain postoperatively, was hypotensive and WBC went up to [address] was done yday and showed free air cw gastric perforation: Large hiatal hernia containing a large portion of the stomach with moderate amount of free air in the hiatal hernia and in the upper abdomen. Distal gastric wall thickening and extraluminal fluid adjacent to the distal stomach. Most likely etiology for the findings is a perforated gastric ulcer. Free fluid is also seen in the upper abdomen. Pt underewent emergent surgery yday: sp Laparoscopic partial reduction of paraesophageal hernia and wedge resection of greater curvature of stomach by Dr Craig, 04/08/18. OP report reviewed. Fuindings include Diffuse contamination of abdominal cavity. Large paraesophageal hernia. Multiple full thickness perforation of greater curvature of stomach Pt remains on vent She is on low dose pressors, UOP is low, creatinine is up, but better today She is on zosyn, fluconazol IV Pt is afebrile, WBC is 5 K, very prominent bandemia 31% Review of Systems unobtainable due to endotracheal tube, unobtainable due to mental status PMFSH - History History Provided By: Patient - Medical History Medical History: Medical History (Last Reviewed 04/09/18 @ 14:27 by Ema Knox MD) Adverse anesthesia outcome Afib Aortic stenosis Asthma CAD (coronary artery disease) CHF (congestive heart failure) HLD (hyperlipidemia) HTN (hypertension) Hiatal hernia Hypothyroid LBBB (left bundle branch block) Mitral regurgitation Myocardial infarct Sleep apnea TIA (transient ischemic attack) UTI (urinary tract infection) - Surgical History Surgical History: Surgical History (Last Reviewed 04/09/18 @ 14:27 by Ema Knox MD) History of coronary artery bypass graft - Family History Family History: Family History (Last Updated 04/09/18 @ 14:27 by Ema Knox MD) Other Family history non-contributory - Social History I have reviewed the patient's Social History: Yes - Tobacco History Second Hand Smoke Exposure: No Smoking Status: Former smoker Tobacco Type: Cigarettes - Alcohol History How Often Do You Have a Drink Containing Alcohol: Monthly or less - Substance Use History Substance History: No History of Abuse - Travel History Recent Travel in the [place] Within the Last 8 Weeks: No Recent Travel Out of the Country Within the Last 8 Weeks: No Medications and Allergies Active Medications: Active Medications Al Hydroxide/Mg Hydroxide (Milk Of Magnesia Liq) 30 ml PO DAILY [facility] Last Admin: 04/09/18 09:29 Dose: Not Given Albuterol (Duoneb Neb (Prn)) 1 ampul NEB Q2HR NEB PRN PRN Reason: WHEEZING Albuterol (Duoneb Neb (Jose)) 1 ampul NEB Q4HR NEB [facility] Last Admin: 04/09/18 07:37 Dose: 1 ampul Aspirin (Aspirin Chew) 81 mg PO DAILY [facility] Last Admin: 04/09/18 09:44 Dose: 81 mg Bisacodyl (Dulcolax Supp) 10 mg RECTAL PRN PRN PRN Reason: SEE LABEL COMMENTS Chlorhexidine Gluconate (Hibiclens 4% Topical) 1 applicatio TOPICAL SKIRT TRIMMER [facility] Stop: 04/10/18 06:12 Chlorhexidine Gluconate (Peridex 0.12% Oral Kit) 15 ml OROPHARYNG BID@0800, 2000 [facility] Last Admin: 04/09/18 09:28 Dose: 15 ml Dextrose (D50w Vial) 50 ml IV.PUSH UNSCH PRN PRN Reason: PER HYPOGLYCEMIA PROTOCOL Docusate Sodium (Colace) 100 mg PO BID [facility] Last Admin: 04/09/18 09:28 Dose: Not Given Glucagon (Glucagon Inj) 1 mg OTHER UNSCH PRN PRN Reason: for Hypoglycemia Protocol Sodium Chloride (Ns Inj) 500 mls @ 30 mls/hr IV.SIG .Q10H [facility] Last Admin: 04/04/18 06:39 Dose: Not Given Acetaminophen (Ofirmev Inj) 1,000 mg in 100 mls @ 400 mls/hr IV.SIG Q6H PRN PRN Reason: PAIN SCALE 1-10 Last Infusion: 04/07/18 18:44 Dose: Infused Phenylephrine HCl 160 mg/ (Sodium Chloride) 500 mls @ 7.5 mls/hr IV.CONT TITRATE PRN; Protocol PRN Reason: See protol Last Titration: 04/09/18 07:00 Dose: 3 mcg/min, 0.56 mls/hr Metronidazole/Sodium Chloride (Flagyl 500 Mg Inj) 100 mls @ 100 mls/hr IV.SIG Q8H [facility] Last Admin: 04/09/18 13:53 Dose: 100 mls/hr Piperacillin/Tazobactam/Dextrose (Zosyn 3.375 Gm Premix) 50 mls @ 200 mls/hr IV.SIG Q6H [facility] Last Infusion: 04/09/18 10:15 Dose: Infused Fentanyl (Fentanyl 10 Mcg/Ml Premix Drip) 2,500 mcg in 250 mls @ 5 mls/hr IV.SIG TITRATE PRN; Protocol PRN Reason: Per Protocol Last Titration: 04/09/18 07:00 Dose: 50 mcg/hr, 5 mls/hr Dextrose/Lactated Ringer's (D5w/Lr Inj) 1,000 mls @ 84 mls/hr IV.CONT .[id number] [facility] Last Admin: 04/09/18 11:02 Dose: 84 mls/hr Fluconazole (Diflucan 200 Mg Premix Bag) 100 mls @ 100 mls/hr IV.SIG Q24H JOSE Sodium Chloride (Ns Inj) 250 mls @ 15 mls/hr IV.SIG ONCE [facility] Stop: 04/09/18 16:24 Last Admin: 04/09/18 01:05 EDT Dose: 15 mls/hr Norepinephrine Bitartrate 8 mg (/ Dextrose) 250 mls @ 3.75 mls/hr IV.CONT TITRATE PRN; Protocol PRN Reason: See Protocol Dexmedetomidine HCl 1,000 mcg/ (Sodium Chloride) 250 mls @ 4.2 mls/hr IV.CONT TITRATE PRN; Protocol PRN Reason: Per Protocol Last Admin: 04/09/18 13:24 Dose: 0.2 mcg/kg/hr, 4.2 mls/hr Insulin Aspart (Novolog Insulin Correctional Sugar Inj) 0 unit SQ Q4HR JOSE; Protocol Last Admin: 04/09/18 12:55 Dose: Not Given Levothyroxine Sodium (Synthroid) 100 mcg PO DAILY@0600 [facility] Last Admin: 04/09/18 05:39 Dose: 100 mcg Miscellaneous (Pill Splitter) 1 each OTHER UNSCH PRN PRN Reason: SEE LABEL COMMENTS Miscellaneous Medication () 1 each OROPHARYNG 0000,0400,1200,1600 [facility] Last Admin: 04/09/18 12:56 Dose: 1 each Multivitamins/Minerals (Theragran-M) 1 tab PO DAILY [facility] Last Admin: 04/09/18 09:44 Dose: 1 tab Ondansetron HCl (Zofran Inj) 4 mg IV.PUSH Q6H PRN PRN Reason: NAUSEA OR VOMITING Last Admin: 04/08/18 09:29 Dose: 4 mg Pantoprazole Sodium (Protonix Inj) 40 mg IV.PUSH Q12H [facility] Last Admin: 04/09/18 11:13 Dose: 40 mg Paroxetine HCl (Paxil) 10 mg PO DAILY [facility] Last Admin: 04/09/18 09:44 Dose: 10 mg Patient's Own: ( Rosuvastatin [ Rosuvastatin] 20 Mg) 0 each PO DAILY [facility] Polyethylene Glycol (Miralax) 17 gm PO DAILY [facility] Last Admin: 04/09/18 09:44 Dose: Not Given Sennosides (Senokot) 8.6 mg PO HS [facility] Last Admin: 04/08/18 23:22 Dose: Not Given Sodium Biphosphate/Sodium Phosphate (Fleets Enema (Adult)) 118 ml RECTAL UNSCH PRN PRN Reason: SEE LABEL COMMENTS Sodium Chloride (Ns Flush) 2 ml IV.FLUSH BID [facility] Last Admin: 04/09/18 09:29 Dose: 2 ml Sodium Chloride (Ns Flush) 2 ml IV.FLUSH PRN PRN PRN Reason: FLUSH AFTER USING IV ACCESS Terbutaline Sulfate (Brethine Inj) 1 mg SQ UNSCH PRN PRN Reason: For Extravasation Terbutaline Sulfate (Brethine Inj) 1 mg SQ UNSCH PRN PRN Reason: For Extravasation Verapamil HCl (Isoptin) 40 mg PO TID [facility] Last Admin: 04/08/18 19:20 Dose: Not Given Allergies Allergy/AdvReac Type Severity Reaction Status Date / Time atorvastatin AdvReac Hypotension Verified 04/04/18 06:21 simvastatin AdvReac Hypotension Verified 04/04/18 06:21 Home Medications Medication Instructions Recorded Confirmed Type ciprofloxacin HCl [Cipro] 500 mg PO Q12H 09/13/18 10/30/18 History coenzyme Q10 [Co Q-10] 10 mg PO TID 02/16/18 04/04/18 History furosemide 40 mg PO BID 02/16/18 04/04/18 History losartan 50 mg PO DAILY 02/16/18 04/04/18 History pantoprazole 40 mg PO DAILY 02/16/18 04/04/18 History paroxetine HCl 10 mg PO DAILY 02/16/18 04/04/18 History potassium chloride [K-Tab] 10 meq PO DAILY 02/16/18 04/04/18 History ranitidine HCl 150 mg PO BID 02/16/18 04/04/18 History rosuvastatin 20 mg PO DAILY 02/16/18 04/04/18 History verapamil 180 mg PO DAILY 02/16/18 04/04/18 History warfarin 5 mg PO DAILY 02/16/18 04/04/18 History aspirin 81 mg PO DAILY 03/09/18 04/04/18 History nitroglycerin 0.4 mg SUBLINGUAL Q5-15M PRN 03/09/18 04/04/18 History Exam Vital signs: Vital Signs 04/08/18 21:37 04/08/18 22:00 04/08/18 23:00 Temperature 98.3 F Pulse Rate 72 Respiratory Rate 20 16 16 Blood Pressure 148/60 H Pulse Oximetry 97 99 95 04/09/18 00:00 04/09/18 00:30 04/09/18 01:33 EDT Temperature 97.7 F 97.7 F Pulse Rate 64 66 69 Respiratory Rate 16 16 16 Blood Pressure 143/59 H 109/45 L Pulse Oximetry 97 98 04/09/18 01:53 EDT 04/09/18 02:59 04/09/18 04:00 Temperature 97.7 F 98.1 F 98.1 F Pulse Rate 69 63 83 Respiratory Rate 16 16 16 Blood Pressure 109/45 L 119/53 L 126/58 L Pulse Oximetry 98 100 98 04/09/18 07:00 04/09/18 07:37 04/09/18 08:00 Temperature 98.8 F Pulse Rate 96 H 103 H 103 H Respiratory Rate 16 17 Blood Pressure 110/57 L 108/60 Pulse Oximetry 99 99 04/09/18 10:33 04/09/18 11:00 04/09/18 11:31 Temperature 99.1 F Pulse Rate 98 H 95 H Respiratory Rate 16 16 16 Blood Pressure 128/62 Pulse Oximetry 99 99 04/09/18 12:00 Temperature Pulse Rate 103 H Respiratory Rate Blood Pressure 124/75 Pulse Oximetry Intake & Output 04/08/18 04/09/18 04/09/18 19:59 06:59 18:59 Intake Total 2500 / 2500 Output Total Balance 2500 / 2500 Weight Intake: IV 2500 / 2500 D5W/LR Inj 1,000 ML @ 84 mls/hr 1000 / 1000 IV.CONT .[id number] [facility] Rx#: [id number] Diflucan 400 mg Premix Bag 200 200 / 200 ML @ 100 mls/hr IV.SIG ONCE ONE Rx#:[id number] Zosyn 3.375 GM Premix 50 ML @ 50 / 50 200 mls/hr IV.SIG Q6H [facility] Rx#: [id number] Flagyl 500 MG Inj 100 ML @ 100 mls/hr IV.SIG Q8H [facility] Rx#: [id number] Oral Anesthesia Amount Other Plasma Thawed 5 Day Cp2d Unit [id number] Intake (Blood Product) Amt Plasma Thawed 5 Day Cp2d Unit [id number] Plasma Thawed 5 Day Cp2d Unit [id number] Rbc As-3 Leukoreduced Unit [id number] Rbc As-3 Leukoreduced Unit [id number] Output: Urine Estimated Blood Loss Urine Amount (Catheter) Indwelling Urethral Catheter Gastric Drainage Right Nare Nasogastric Tube Wound Drainage # 1 Right Anterior Abdomen # 2 Left Anterior Abdomen Other: # Incontinent Voids # Bowel Movements - Constitutional no acute distress, obese - Routine HEENT Exam Head: Present: normocephalic, atraumatic Eye: Present: PERRL. Absent: conjunctival icterus - Routine Neck Exam Present: supple. Absent: JVD - Routine Respiratory Exam Present: patient mechanically ventilated, decreased breath sounds (b/b), CTA bilaterally - Routine Cardiovascular Exam Present: RRR, S1, S2. Absent: murmur, gallop, rubs Comments: dressing in place Prevena pver sternum - Routine Abdominal Exam Present: soft, distended, drain (with cloudy serosang dc LUQ). Absent: organomegaly, mass - Detailed Abdominal Exam Bowel sounds: hypoactive - Routine Extremities Exam Present: cyanosis (b/l feet), edema, pulses intact, normal capillary refill. Absent: clubbing - Routine Skin Exam Present: dry, warm. Absent: rash - Routine Neurological Exam sedated - Routine Psychiatric Exam Present: unable to assess Results - Labs CBC & Chem 7: 04/09/18 05:30 04/09/18 05:30 Labs: Laboratory Results - last 24 hr 04/08/18 04/08/18 04/08/18 16:53 17:24 22:30 WBC 6.0 D RBC 2.21 L Hgb 6.8 L* D Hct 20.7 L* MCV 93.6 MCH 30.9 MCHC 33.0 RDW 13.7 Plt Count 293 D MPV 8.6 Prelim Diff (Auto) Slide review pending Neut % (Auto) Lymph % (Auto) [place] % (Auto) Eos % (Auto) Baso % (Auto) Neut # (Auto) Lymph # (Auto) [place] # (Auto) Eos # (Auto) Baso # (Auto) WBC Differential Manual diff final Seg Neuts % (Manual) 55 Band Neuts % (Manual) 24 H Lymphocytes % (Manual) 8 L Monocytes % (Manual) 9 H Eosinophils % (Manual) 1 Metamyelocytes % (Man) 3 H Abs Neuts (Manual) 4.9 Differential Comment . Toxic Granulation Platelet Estimate Normal Platelet Morphology Normal RBC Morphology Normal Ovalocytes PT 15.5 H D INR 1.5 APTT Fibrinogen Puncture Site Patient Temperature O2 Saturation ABG pH ABG pCO2 ABG pO2 ABG HCO3 ABG O2 Content ABG Base Excess ABG Methemoglobin Hemoglobin Carboxyhemoglobin O2 Delivery Device Vent Setting Inspired O2 Critical Value Sodium Potassium Chloride Carbon Dioxide Anion Gap BUN Creatinine Estimated GFR POC Glucose Random Glucose Lactic Acid Calcium Phosphorus Magnesium Total Bilirubin AST ALT Alkaline Phosphatase Total Protein Albumin Blood Type O Positive Antibody Screen Negative MTS Gel Crossmatch See Detail 04/08/18 04/08/18 04/08/18 22:30 22:30 23:16 WBC RBC Hgb Hct MCV MCH MCHC RDW Plt Count MPV Prelim Diff (Auto) Neut % (Auto) Lymph % (Auto) [place] % (Auto) Eos % (Auto) Baso % (Auto) Neut # (Auto) Lymph # (Auto) [place] # (Auto) Eos # (Auto) Baso # (Auto) WBC Differential Seg Neuts % (Manual) Band Neuts % (Manual) Lymphocytes % (Manual) Monocytes % (Manual) Eosinophils % (Manual) Metamyelocytes % (Man) Abs Neuts (Manual) Differential Comment Toxic Granulation Platelet Estimate Platelet Morphology RBC Morphology Ovalocytes PT 17.6 H INR 1.7 APTT 31.3 Fibrinogen 353 Puncture Site Patient Temperature O2 Saturation ABG pH ABG pCO2 ABG pO2 ABG HCO3 ABG O2 Content ABG Base Excess ABG Methemoglobin Hemoglobin Carboxyhemoglobin O2 Delivery Device Vent Setting Inspired O2 Critical Value Sodium 143 Potassium 4.5 Chloride 109 H Carbon Dioxide 23.4 Anion Gap 11 BUN 74 H Creatinine 2.18 H Estimated GFR 22 L POC Glucose Random Glucose 96 Lactic Acid Calcium 8.6 Phosphorus Magnesium Total Bilirubin AST ALT Alkaline Phosphatase Total Protein Albumin Blood Type Antibody Screen MTS Gel Crossmatch See Detail 04/08/18 04/09/18 04/09/18 23:59 01:13 EST 05:30 WBC 5.1 RBC 3.10 L Hgb 9.6 L D Hct 26.8 L MCV 86.7 D MCH 31.0 MCHC 35.7 RDW 15.7 Plt Count 219 MPV 7.9 Prelim Diff (Auto) Slide review pending Neut % (Auto) 78.3 H Lymph % (Auto) 12.1 [place] % (Auto) 9.1 H Eos % (Auto) 0.3 Baso % (Auto) 0.2 Neut # (Auto) 4.0 Lymph # (Auto) 0.6 L [place] # (Auto) 0.5 Eos # (Auto) 0.0 Baso # (Auto) 0.0 WBC Differential Manual diff final Seg Neuts % (Manual) 59 Band Neuts % (Manual) 31 H Lymphocytes % (Manual) 7 L Monocytes % (Manual) 1 Eosinophils % (Manual) Metamyelocytes % (Man) 2 H Abs Neuts (Manual) 4.7 Differential Comment . Toxic Granulation 1+ H Platelet Estimate Normal Platelet Morphology Enlarged H RBC Morphology Ovalocytes 1+ H PT INR APTT Fibrinogen Puncture Site Patient Temperature O2 Saturation ABG pH ABG pCO2 ABG pO2 ABG HCO3 ABG O2 Content ABG Base Excess ABG Methemoglobin Hemoglobin Carboxyhemoglobin O2 Delivery Device Vent Setting Inspired O2 Critical Value Sodium Potassium Chloride Carbon Dioxide Anion Gap BUN Creatinine Estimated GFR POC Glucose 100 Random Glucose Lactic Acid 2.0 Calcium Phosphorus Magnesium Total Bilirubin AST ALT Alkaline Phosphatase Total Protein Albumin Blood Type Antibody Screen MTS Gel Crossmatch 04/09/18 04/09/18 04/09/18 05:30 05:30 09:24 WBC RBC Hgb Hct MCV MCH MCHC RDW Plt Count MPV Prelim Diff (Auto) Neut % (Auto) Lymph % (Auto) [place] % (Auto) Eos % (Auto) Baso % (Auto) Neut # (Auto) Lymph # (Auto) [place] # (Auto) Eos # (Auto) Baso # (Auto) WBC Differential Seg Neuts % (Manual) Band Neuts % (Manual) Lymphocytes % (Manual) Monocytes % (Manual) Eosinophils % (Manual) Metamyelocytes % (Man) Abs Neuts (Manual) Differential Comment Toxic Granulation Platelet Estimate Platelet Morphology RBC Morphology Ovalocytes PT 19.3 H INR 1.9 APTT Fibrinogen Puncture Site Patient Temperature O2 Saturation ABG pH ABG pCO2 ABG pO2 ABG HCO3 ABG O2 Content ABG Base Excess ABG Methemoglobin Hemoglobin Carboxyhemoglobin O2 Delivery Device Vent Setting Inspired O2 Critical Value Sodium 146 H Potassium 3.8 Chloride 111 H Carbon Dioxide 25.1 Anion Gap 10 BUN 72 H Creatinine 1.99 H Estimated GFR 24 L POC Glucose 105 Random Glucose 117 H Lactic Acid Calcium 8.2 L Phosphorus 4.2 Magnesium 2.6 H Total Bilirubin 1.3 H AST 710 H ALT 261 H Alkaline Phosphatase 44 L Total Protein 5.1 L Albumin 2.4 L Blood Type Antibody Screen MTS Gel Crossmatch 04/09/18 04/09/18 12:19 13:58 WBC RBC Hgb Hct MCV MCH MCHC RDW Plt Count MPV Prelim Diff (Auto) Neut % (Auto) Lymph % (Auto) [place] % (Auto) Eos % (Auto) Baso % (Auto) Neut # (Auto) Lymph # (Auto) [place] # (Auto) Eos # (Auto) Baso # (Auto) WBC Differential Seg Neuts % (Manual) Band Neuts % (Manual) Lymphocytes % (Manual) Monocytes % (Manual) Eosinophils % (Manual) Metamyelocytes % (Man) Abs Neuts (Manual) Differential Comment Toxic Granulation Platelet Estimate Platelet Morphology RBC Morphology Ovalocytes PT INR APTT Fibrinogen Puncture Site [place] Patient Temperature 98.6 O2 Saturation 96 ABG pH 7.49 H ABG pCO2 29 L ABG pO2 100 ABG HCO3 22 ABG O2 Content 13.4 ABG Base Excess -1.2 ABG Methemoglobin 1.4 Hemoglobin 9.8 L Carboxyhemoglobin 1.0 O2 Delivery Device Ventilator Vent Setting See comments Inspired O2 40 Critical Value No Sodium Potassium Chloride Carbon Dioxide Anion Gap BUN Creatinine Estimated GFR POC Glucose 94 Random Glucose Lactic Acid Calcium Phosphorus Magnesium Total Bilirubin AST ALT Alkaline Phosphatase Total Protein Albumin Blood Type Antibody Screen MTS Gel Crossmatch - Imaging Impressions Chest X-Ray 04/08/18 22:44 CONCLUSION: Satisfactory tube and line positioning. Improved aeration. Chest X-Ray 04/04/18 11:27 CONCLUSION: 1. Status post CABG. 2. Cardiomegaly with pulmonary vascular congestion and bibasilar densities. 3. Support lines and tubes as above. 4. Nasogastric tube likely coiled within a large hiatal hernia. Chest X-Ray 04/05/18 05:00 CONCLUSION: Bibasilar consolidation slightly worse on the right and slightly improved on the left since yesterday. Mediastinal drain and left chest tube remain in place. No pneumothorax. Chest X-Ray 04/06/18 00:00 CONCLUSION: 1. Huge hiatal hernia and the entire stomach is basically said the chest filled with gas not present previously. 2. Slight bilateral lung base atelectasis and/or infiltrate is seen, mild pulmonary edema is also suspected. Abdomen X-Ray 04/07/18 00:00 CONCLUSION: Nonspecific bowel gas pattern with scattered small and large bowel gas. Chest X-Ray 04/07/18 06:00 CONCLUSION: Resolving pulmonary edema. Small left effusion Abdomen/Bladder Ultrasound 04/08/18 00:00 CONCLUSION: Kidneys within normal limits. Right pleural effusion noted. Chest X-Ray 04/08/18 09:12 CONCLUSION: 1. Increased bilateral lower lung zone opacity indicating a combination of consolidation/atelectasis and small pleural effusions. 2. Large hiatal hernia with gas-filled stomach in the chest again seen. Abdomen/Pelvis CT 04/08/18 10:09 CONCLUSION: 1. Prominent amount of free air and free fluid in the upper abdomen and within a large hiatal hernia. A large portion of the stomach is in a hiatal hernia. Most likely etiology for the findings is a perforated gastric ulcer. Findings discussed with the patient's nurse. 2. Distended gallbladder. Chest CT 04/08/18 10:09 CONCLUSION: 1. Large hiatal hernia containing a large portion of the stomach with moderate amount of free air in the hiatal hernia and in the upper abdomen. Distal gastric wall thickening and extraluminal fluid adjacent to the distal stomach. Most likely etiology for the findings is a perforated gastric ulcer. Free fluid is also seen in the upper abdomen. 2. New bilateral lower lobe atelectasis/consolidation and small bilateral pleural effusions. Chest X-Ray 04/08/18 22:44 CONCLUSION: Satisfactory tube and line positioning. Improved aeration. Assessment and Plan - Plan Large paraesophageal hernia sp perforation of stomach with diffuse contamination of abdominal cavity sp emergent lap repair Acute VDRF ALVIN CAD severe sp CABG on 04/04 cont zosyn, fluconazol IV fu cultures if no e/o fungal sepsis will dc fluconazoyola mondragon RN
--- NOTE | 2018-04-09 15:57 | P.PNCA ---
Subjective Interval history: s/p multiple wedge resection for full thickness ulcer/perfs Went back into AFib last night, but heart rates stable Levophed currently for vasopressor Medications and Allergies Active Medications: Active Medications Al Hydroxide/Mg Hydroxide (Milk Of Magnalex Liq) 30 ml PO DAILY [facility] Last Admin: 04/09/18 09:29 Dose: Not Given Albuterol (Duoneb Neb (Prn)) 1 ampul NEB Q2HR NEB PRN PRN Reason: WHEEZING Albuterol (Duoneb Neb (Yash)) 1 ampul NEB Q4HR NEB [facility] Last Admin: 04/09/18 07:37 Dose: 1 ampul Aspirin (Aspirin Chew) 81 mg PO DAILY [facility] Last Admin: 04/09/18 09:44 Dose: 81 mg Bisacodyl (Dulcolax Supp) 10 mg RECTAL PRN PRN PRN Reason: SEE LABEL COMMENTS Chlorhexidine Gluconate (Hibiclens 4% Topical) 1 applicatio [employer] [facility] Stop: 04/10/18 06:12 Chlorhexidine Gluconate (Peridex 0.12% Oral Kit) 15 ml OROPHARYNG BID@0800, 2000 [facility] Last Admin: 04/09/18 09:28 Dose: 15 ml Dextrose (D50w Vial) 50 ml IV.PUSH UNSCH PRN PRN Reason: PER HYPOGLYCEMIA PROTOCOL Docusate Sodium (Colace) 100 mg PO BID [facility] Last Admin: 04/09/18 09:28 Dose: Not Given Glucagon (Glucagon Inj) 1 mg OTHER UNSCH PRN PRN Reason: for Hypoglycemia Protocol Sodium Chloride (Ns Inj) 500 mls @ 30 mls/hr IV.SIG .Q10H [facility] Last Admin: 04/04/18 06:39 Dose: Not Given Acetaminophen (Ofirmev Inj) 1,000 mg in 100 mls @ 400 mls/hr IV.SIG Q6H PRN PRN Reason: PAIN SCALE 1-10 Last Infusion: 04/07/18 18:44 Dose: Infused Phenylephrine HCl 160 mg/ (Sodium Chloride) 500 mls @ 7.5 mls/hr IV.CONT TITRATE PRN; Protocol PRN Reason: See protol Last Titration: 04/09/18 07:00 Dose: 3 mcg/min, 0.56 mls/hr Metronidazole/Sodium Chloride (Flagyl 500 Mg Inj) 100 mls @ 100 mls/hr IV.SIG Q8H [facility] Last Admin: 04/09/18 13:53 Dose: 100 mls/hr Piperacillin/Tazobactam/Dextrose (Zosyn 3.375 Gm Premix) 50 mls @ 200 mls/hr IV.SIG Q6H [facility] Last Infusion: 04/09/18 10:15 Dose: Infused Fentanyl (Fentanyl 10 Mcg/Ml Premix Drip) 2,500 mcg in 250 mls @ 5 mls/hr IV.SIG TITRATE PRN; Protocol PRN Reason: Per Protocol Last Titration: 04/09/18 07:00 Dose: 50 mcg/hr, 5 mls/hr Dextrose/Lactated Ringer's (D5w/Lr Inj) 1,000 mls @ 84 mls/hr IV.CONT .[id number] [facility] Last Admin: 04/09/18 11:02 Dose: 84 mls/hr Fluconazole (Diflucan 200 Mg Premix Bag) 100 mls @ 100 mls/hr IV.SIG Q24H [facility] Sodium Chloride (Ns Inj) 250 mls @ 15 mls/hr IV.SIG ONCE [facility] Stop: 04/09/18 16:24 Last Admin: 04/09/18 01:05 EDT Dose: 15 mls/hr Norepinephrine Bitartrate 8 mg (/ Dextrose) 250 mls @ 3.75 mls/hr IV.CONT TITRATE PRN; Protocol PRN Reason: See Protocol Dexmedetomidine HCl 1,000 mcg/ (Sodium Chloride) 250 mls @ 4.2 mls/hr IV.CONT TITRATE PRN; Protocol PRN Reason: Per Protocol Last Admin: 04/09/18 13:24 Dose: 0.2 mcg/kg/hr, 4.2 mls/hr Insulin Aspart (Novolog Insulin Correctional Sugar Inj) 0 unit SQ Q4HR [facility]; Protocol Last Admin: 04/09/18 12:55 Dose: Not Given Levothyroxine Sodium (Synthroid) 100 mcg PO DAILY@0600 [facility] Last Admin: 04/09/18 05:39 Dose: 100 mcg Miscellaneous (Pill Splitter) 1 each OTHER UNSCH PRN PRN Reason: SEE LABEL COMMENTS Miscellaneous Medication () 1 each OROPHARYNG 0000,0400,1200,1600 [facility] Last Admin: 04/09/18 12:56 Dose: 1 each Multivitamins/Minerals (Theragran-M) 1 tab PO DAILY [facility] Last Admin: 04/09/18 09:44 Dose: 1 tab Ondansetron HCl (Zofran Inj) 4 mg IV.PUSH Q6H PRN PRN Reason: NAUSEA OR VOMITING Last Admin: 04/08/18 09:29 Dose: 4 mg Pantoprazole Sodium (Protonix Inj) 40 mg IV.PUSH Q12H [facility] Last Admin: 04/09/18 11:13 Dose: 40 mg Paroxetine HCl (Paxil) 10 mg PO DAILY [facility] Last Admin: 04/09/18 09:44 Dose: 10 mg Patient's Own: ( Rosuvastatin [ Rosuvastatin] 20 Mg) 0 each PO DAILY [facility] Polyethylene Glycol (Miralax) 17 gm PO DAILY [facility] Last Admin: 04/09/18 09:44 Dose: Not Given Sennosides (Senokot) 8.6 mg PO HS [facility] Last Admin: 04/08/18 23:22 Dose: Not Given Sodium Biphosphate/Sodium Phosphate (Fleets Enema (Adult)) 118 ml RECTAL UNSCH PRN PRN Reason: SEE LABEL COMMENTS Sodium Chloride (Ns Flush) 2 ml IV.FLUSH BID [facility] Last Admin: 04/09/18 09:29 Dose: 2 ml Sodium Chloride (Ns Flush) 2 ml IV.FLUSH PRN PRN PRN Reason: FLUSH AFTER USING IV ACCESS Terbutaline Sulfate (Brethine Inj) 1 mg SQ UNSCH PRN PRN Reason: For Extravasation Terbutaline Sulfate (Brethine Inj) 1 mg SQ UNSCH PRN PRN Reason: For Extravasation Verapamil HCl (Isoptin) 40 mg PO TID [facility] Last Admin: 04/08/18 19:20 Dose: Not Given Allergies Allergy/AdvReac Type Severity Reaction Status Date / Time atorvastatin AdvReac Hypotension Verified 04/04/18 06:21 simvastatin AdvReac Hypotension Verified 04/04/18 06:21 Home Medications Medication Instructions Recorded Confirmed Type ciprofloxacin HCl [Cipro] 500 mg PO Q12H 02/16/18 04/04/18 History coenzyme Q10 [Co Q-10] 10 mg PO TID 02/16/18 04/04/18 History furosemide 40 mg PO BID 02/16/18 04/04/18 History losartan 50 mg PO DAILY 02/16/18 04/04/18 History pantoprazole 40 mg PO DAILY 02/16/18 04/04/18 History paroxetine HCl 10 mg PO DAILY 02/16/18 04/04/18 History potassium chloride [K-Tab] 10 meq PO DAILY 02/16/18 04/04/18 History ranitidine HCl 150 mg PO BID 02/16/18 04/04/18 History rosuvastatin 20 mg PO DAILY 02/16/18 04/04/18 History verapamil 180 mg PO DAILY 02/16/18 04/04/18 History warfarin 5 mg PO DAILY 02/16/18 04/04/18 History aspirin 81 mg PO DAILY 03/09/18 04/04/18 History nitroglycerin 0.4 mg SUBLINGUAL Q5-15M PRN 03/09/18 04/04/18 History Physical Exam Vital signs: Vital Signs 04/08/18 21:37 04/08/18 22:00 04/08/18 23:00 Temperature 98.3 F Pulse Rate 72 Respiratory Rate 20 16 16 Blood Pressure 148/60 H Pulse Oximetry 97 99 95 04/09/18 00:00 04/09/18 00:30 04/09/18 01:33 EDT Temperature 97.7 F 97.7 F Pulse Rate 64 66 69 Respiratory Rate 16 16 16 Blood Pressure 143/59 H 109/45 L Pulse Oximetry 97 98 04/09/18 01:53 EDT 04/09/18 02:59 04/09/18 04:00 Temperature 97.7 F 98.1 F 98.1 F Pulse Rate 69 63 83 Respiratory Rate 16 16 16 Blood Pressure 109/45 L 119/53 L 126/58 L Pulse Oximetry 98 100 98 04/09/18 07:00 04/09/18 07:37 04/09/18 08:00 Temperature 98.8 F Pulse Rate 96 H 103 H 103 H Respiratory Rate 16 17 Blood Pressure 110/57 L 108/60 Pulse Oximetry 99 99 04/09/18 10:33 04/09/18 11:00 04/09/18 11:31 Temperature 99.1 F Pulse Rate 98 H 95 H Respiratory Rate 16 16 16 Blood Pressure 128/62 Pulse Oximetry 99 99 04/09/18 12:00 04/09/18 13:56 Temperature Pulse Rate 103 H Respiratory Rate 16 Blood Pressure 124/75 Pulse Oximetry 98 Intake & Output 04/08/18 04/09/1804/09/18 19:59 06:59 18:59 Intake Total 2500 / 2500 Output Total Balance 2500 / 2500 Weight Intake: IV 2500 / 2500 D5W/LR Inj 1,000 ML @ 84 mls/hr 1000 / 1000 IV.CONT .[id number] [facility] Rx#: [id number] Diflucan 400 mg Premix Bag 200 200 / 200 ML @ 100 mls/hr IV.SIG ONCE ONE Rx#:[id number] Zosyn 3.375 GM Premix 50 ML @ 50 / 50 200 mls/hr IV.SIG Q6H [facility] Rx#: [id number] Flagyl 500 MG Inj 100 ML @ 100 mls/hr IV.SIG Q8H [facility] Rx#: [id number] Oral Anesthesia Amount Other Plasma Thawed 5 Day Cp2d Unit [id number] Intake (Blood Product) Amt Plasma Thawed 5 Day Cp2d Unit [id number] Plasma Thawed 5 Day Cp2d Unit [id number] Rbc As-3 Leukoreduced Unit [id number] Rbc As-3 Leukoreduced Unit [id number] Output: Urine Estimated Blood Loss Urine Amount (Catheter) Indwelling Urethral Catheter Gastric Drainage Right Nare Nasogastric Tube Wound Drainage # 1 Right Anterior Abdomen # 2 Left Anterior Abdomen Other: # Incontinent Voids # Bowel Movements Narrative: GENERAL: Well-nourished, well-developed patient. SKIN: Warm and dry. HEAD: Normocephalic. EYES: No scleral icterus. No injection or drainage. NECK: Supple, trachea midline. No JVD or lymphadenopathy. CARDIOVASCULAR: Irregularly postsurgical scar in place RESPIRATORY: Breath sounds diminished at bases GASTROINTESTINAL: Soft, NT, OANH in place EXTREMITIES: Mild edema NEUROLOGICAL: Sedated and intubated - Urinary Catheter Management Indwelling Temp Sensing Catheter Cath placed during this visit: yes Urethral indwelling: No Reason for continuing: Hourly intake/output Insertion date: 04/04/18 Insertion time: 07:52 Indwelling Urethral Catheter Cath placed during this visit: yes Reason for continuing: Hourly intake/output Insertion date: 04/08/18 Insertion time: 16:51 Results 04/09/18 05:30 04/09/18 05:30 Cardiac Enzymes 04/08/18 04/09/18 Range/Units 09:15 05:30 AST 46 H 710 H (15-37) U/L Coagulation 04/08/18 04/08/18 04/08/18 Range/Units 04:55 09:15 16:53 PT 33.6 H D 37.9 H 15.5 H D (9.8-11.6) sec APTT (23.4-31.7) sec 04/08/18 04/09/18 Range/Units 22:30 05:30 PT 17.6 H 19.3 H (9.8-11.6) sec APTT 31.3 (23.4-31.7) sec CBC 04/08/18 04/08/18 04/08/18 Range/Units 04:55 09:15 22:30 WBC 9.0 12.3 H 6.0 D (4.0-11.0) th/mm3 RBC 3.57 L 3.45 L 2.21 L (4.00-5.30) mil/mm3 Hgb 11.1 L 10.9 L 6.8 L* D (11.6-15.3) gm/dL Hct 33.7 L 32.3 L 20.7 L* (35.0-46.0) % Plt Count 410 D 449 293 D (150-450) th/mm3 Neut # (Auto) 9.4 H (1.8-7.7) th/mm3 Lymph # (Auto) 1.4 (1.0-4.8) th/mm3 Edgar # (Auto) 1.6 H (0.0-0.9) th/mm3 Eos # (Auto) 0.0 (0.0-0.4) th/mm3 Baso # (Auto) 0.0 (0.0-0.2) th/mm3 04/09/18 Range/Units 05:30 WBC 5.1 (4.0-11.0) th/mm3 RBC 3.10 L (4.00-5.30) mil/mm3 Hgb 9.6 L D (11.6-15.3) gm/dL Hct 26.8 L (35.0-46.0) % Plt Count 219 (150-450) th/mm3 Neut # (Auto) 4.0 (1.8-7.7) th/mm3 Lymph # (Auto) 0.6 L (1.0-4.8) th/mm3 Edgar # (Auto) 0.5 (0.0-0.9) th/mm3 Eos # (Auto) 0.0 (0.0-0.4) th/mm3 Baso # (Auto) 0.0 (0.0-0.2) th/mm3 Comprehensive Metabolic Panel 04/08/18 04/08/18 04/08/18 Range/Units 04:55 09:15 22:30 Sodium 142 142 143 (136-145) meq/L Potassium 4.7 4.3 4.5 (3.5-5.1) meq/L Chloride 109 H 110 H 109 H (98-107) meq/L Carbon Dioxide 25.0 22.3 23.4 (21.0-32.0) meq/L BUN 70 H 70 H 74 H (7-18) mg/dL Creatinine 2.22 H 2.30 H 2.18 H (0.50-1.00) mg/dL Calcium 9.3 9.2 8.6 (8.5-10.1) mg/dL AST 46 H (15-37) U/L ALT 25 (10-53) U/L Alkaline Phosphatase 47 (45-117) U/L Total Protein 5.3 L (6.4-8.2) g/dL Albumin 2.1 L D (3.4-5.0) g/dL 04/09/18 Range/Units 05:30 Sodium 146 H (136-145) meq/L Potassium 3.8 (3.5-5.1) meq/L Chloride 111 H (98-107) meq/L Carbon Dioxide 25.1 (21.0-32.0) meq/L BUN 72 H (7-18) mg/dL Creatinine 1.99 H (0.50-1.00) mg/dL Calcium 8.2 L (8.5-10.1) mg/dL AST 710 H (15-37) U/L ALT 261 H (10-53) U/L Alkaline Phosphatase 44 L (45-117) U/L Total Protein 5.1 L (6.4-8.2) g/dL Albumin 2.4 L (3.4-5.0) g/dL Intake and Output 04/09/18 04/09/18 04/09/18 06:59 14:59 22:59 Intake Total 2500 / 2500 Output Total Balance 2500 / 2500 Intake: IV 2500 / 2500 D5W/LR Inj 1,000 ML @ 84 mls/hr 1000 / 1000 IV.CONT .[id number] [facility] Rx#: [id number] Diflucan 400 mg Premix Bag 200 200 / 200 ML @ 100 mls/hr IV.SIG ONCE ONE Rx#:[id number] Zosyn 3.375 GM Premix 50 ML @ 50 / 50 200 mls/hr IV.SIG Q6H [facility] Rx#: [id number] Flagyl 500 MG Inj 100 ML @ 100 mls/hr IV.SIG Q8H [facility] Rx#: [id number] Oral Other Intake (Blood Product) Amt Rbc As-3 Leukoreduced Unit [id number] Rbc As-3 Leukoreduced Unit [id number] Output: Urine Amount (Catheter) Indwelling Urethral Catheter Gastric Drainage Right Nare Nasogastric Tube Wound Drainage # 1 Right Anterior Abdomen # 2 Left Anterior Abdomen Other: # Bowel Movements Weight - Imaging and Cardiology Imaging: Impressions Abdomen/Bladder Ultrasound 04/08/18 00:00 CONCLUSION: Kidneys within normal limits. Right pleural effusion noted. Chest X-Ray 04/08/18 09:12 CONCLUSION: 1. Increased bilateral lower lung zone opacity indicating a combination of consolidation/atelectasis and small pleural effusions. 2. Large hiatal hernia with gas-filled stomach in the chest again seen. Abdomen/Pelvis CT 04/08/18 10:09 CONCLUSION: 1. Prominent amount of free air and free fluid in the upper abdomen and within a large hiatal hernia. A large portion of the stomach is in a hiatal hernia. Most likely etiology for the findings is a perforated gastric ulcer. Findings discussed with the patient's nurse. 2. Distended gallbladder. Chest CT 04/08/18 10:09 CONCLUSION: 1. Large hiatal hernia containing a large portion of the stomach with moderate amount of free air in the hiatal hernia and in the upper abdomen. Distal gastric wall thickening and extraluminal fluid adjacent to the distal stomach. Most likely etiology for the findings is a perforated gastric ulcer. Free fluid is also seen in the upper abdomen. 2. New bilateral lower lobe atelectasis/consolidation and small bilateral pleural effusions. Chest X-Ray 04/08/18 22:44 CONCLUSION: Satisfactory tube and line positioning. Improved aeration. Assessment and Plan - Assessment (1) Severe aortic stenosis Code(s): I35.0 - Nonrheumatic aortic (valve) stenosis Status: Chronic (2) Coronary artery disease involving n[place] coronary artery Code(s): I25.10 - Atherosclerotic heart disease of n[place] coronary artery without angina pectoris Status: Acute (3) Congestive heart failure (CHF) Code(s): I50.9 - Heart failure, unspecified Status: Chronic (4) Atrial fibrillation Code(s): I48.91 - Unspecified atrial fibrillation Status: Chronic (5) S/P CABG (coronary artery bypass graft) Code(s): Z95.1 - Presence of aortocoronary bypass graft Status: Acute - Plan 1) CAD s/p CABGx2 2) Residual Possible TAVR in the future Not a BAV candidate at this time with at least moderate AR 3) AFib Cardioverted yesterday before abdominal surgery Back in AFib overnight but heart rates stable Will need to be back on anticoagulation at some point Will see if stable tomorrow then heparin drip, and Coumadin once ok with surgery Will have to see how she does hemodynamically going further, might need to cardiovert again, stable for now 4) Gastric ulcer/perfs Per surgery
--- NOTE | 2018-04-09 17:39 | P.PNNP ---
Subjective Interval history: Patient is on ventilator Physical Exam Vital signs: Vital Signs 04/08/18 21:37 04/08/18 22:00 04/08/18 23:00 Temperature 98.3 F Pulse Rate 72 Respiratory Rate 20 16 16 Blood Pressure 148/60 H Pulse Oximetry 97 99 95 04/09/18 00:00 04/09/18 00:30 04/09/18 01:33 EDT Temperature 97.7 F 97.7 F Pulse Rate 64 66 69 Respiratory Rate 16 16 16 Blood Pressure 143/59 H 109/45 L Pulse Oximetry 97 98 04/09/18 01:53 EDT 04/09/18 02:59 04/09/18 04:00 Temperature 97.7 F 98.1 F 98.1 F Pulse Rate 69 63 83 Respiratory Rate 16 16 16 Blood Pressure 109/45 L 119/53 L 126/58 L Pulse Oximetry 98 100 98 04/09/18 07:00 04/09/18 07:37 04/09/18 08:00 Temperature 98.8 F Pulse Rate 96 H 103 H 103 H Respiratory Rate 16 17 Blood Pressure 110/57 L 108/60 Pulse Oximetry 99 99 04/09/18 10:33 04/09/18 11:00 04/09/18 11:31 Temperature 99.1 F Pulse Rate 98 H 95 H Respiratory Rate 16 16 16 Blood Pressure 128/62 Pulse Oximetry 99 99 04/09/18 12:00 04/09/18 13:56 04/09/18 15:55 Temperature Pulse Rate 103 H 109 H Respiratory Rate 16 17 Blood Pressure 124/75 Pulse Oximetry 98 Intake & Output 04/08/18 04/09/18 04/09/18 19:59 06:59 18:59 Intake Total 2900 / 2900 Output Total Balance 2900 / 2900 Weight Intake: IV 2900 / 2900 Precedex Inj 200 MCG In NS Inj 50 / 50 48 ML @ 0.2 MCG/KG/HR 4.2 mls/ hr IV.CONT TITRATE PRN Rx#: [id number] D5W/LR Inj 1,000 ML @ 84 mls/hr 1000 / 1000 IV.CONT .[id number] [facility] Rx#: [id number] Diflucan 400 mg Premix Bag 200 200 / 200 ML @ 100 mls/hr IV.SIG ONCE ONE Rx#:[id number] Zosyn 3.375 GM Premix 50 ML @ 50 / 50 200 mls/hr IV.SIG Q6H [facility] Rx#: [id number] NS Inj 250 ML @ 15 mls/hr IV. 250 / 250 SIG ONCE [facility] Rx#:[id number] Flagyl 500 MG Inj 100 ML @ 100 100 / 100 mls/hr IV.SIG Q8H [facility] Rx#: [id number] Oral Anesthesia Amount Other Plasma Thawed 5 Day Cp2d Unit [id number] Intake (Blood Product) Amt Plasma Thawed 5 Day Cp2d Unit [id number] Plasma Thawed 5 Day Cp2d Unit [id number] Rbc As-3 Leukoreduced Unit [id number] Rbc As-3 Leukoreduced Unit [id number] Output: Urine Estimated Blood Loss Urine Amount (Catheter) Indwelling Urethral Catheter Gastric Drainage Right Nare Nasogastric Tube Wound Drainage # 1 Right Anterior Abdomen # 2 Left Anterior Abdomen Other: # Incontinent Voids # Bowel Movements Narrative: GENERAL: Well-nourished, well-developed patient. SKIN: Warm and dry. HEAD: Normocephalic. EYES: No scleral icterus. No injection or drainage. NECK: Supple, trachea midline. No JVD or lymphadenopathy. CARDIOVASCULAR: Irregularly postsurgical scar in place RESPIRATORY: Breath sounds diminished at bases GASTROINTESTINAL: Soft, NT, OANH in place EXTREMITIES: Mild edema NEUROLOGICAL: Sedated and intubated - Urinary Catheter Management Indwelling Temp Sensing Catheter Cath placed during this visit: yes Urethral indwelling: No Reason for continuing: Hourly intake/output Insertion date: 04/04/18 Insertion time: 07:52 Indwelling Urethral Catheter Cath placed during this visit: yes Reason for continuing: Hourly intake/output Insertion date: 04/08/18 Insertion time: 16:51 Assessment and Plan - Assessment (1) Acute renal failure Code(s): N17.9 - Acute kidney failure, unspecified Status: Acute (2) Atrial fibrillation Code(s): I48.91 - Unspecified atrial fibrillation Status: Chronic (3) S/P CABG (coronary artery bypass graft) Code(s): Z95.1 - Presence of aortocoronary bypass graft Status: Acute (4) Pneumoperitoneum Code(s): K66.8 - Other specified disorders of peritoneum Status: Acute (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
[2018-04-10] MEDS: Insulin NovoLOG Aspart Correctional Sugar Inj SQ SCH ×6 (03:43→20:21)
[2018-04-10] MEDS: Piperacil/Tazo 3.375 GM Premix 50 ML IV.SIG SCH ×4 (03:44→20:19)
[2018-04-10] MEDS: Oral Hygiene Kit OROPHARYNG SCH ×4 (03:44→23:24)
[2018-04-10 05:24] LABS: Baso % (Auto) 0.1 % (0.0-2.0); Eos % (Auto) 0.4 % (0.0-4.0); Hematocrit 28.3 % (35.0-46.0); Hemoglobin 9.4 gm/dL (11.6-15.3); Lymph # (Auto) 0.8 th/mm3 (1.0-4.8); Mean Corpuscular HGB Conc 33.2 % (32.0-36.0); Mean Corpuscular Hemoglobin 29.5 pg (27.0-34.0); Mean Corpuscular Volume 88.8 fL (80.0-100.0); Mean Platelet Volume 8.2 fL (7.0-11.0); Mono # (Auto) 0.7 th/mm3 (0.0-0.9); Mono % (Auto) 6.4 % (0.0-8.0); Neut # (Auto) 9.8 th/mm3 (1.8-7.7); Neut % (Auto) 86.1 % (16.0-70.0); Platelet Count 242 th/mm3 (150-450); Red Blood Count 3.18 mil/mm3 (4.00-5.30); Red Cell Distribution Width 16.4 % (11.6-17.2); White Blood Count 11.3 th/mm3 (4.0-11.0)
[2018-04-10 05:31] LABS: INR 1.5 Ratio; Prothrombin Time 15.5 sec (9.8-11.6)
[2018-04-10 05:35] LABS: Alanine Aminotransferase 212 U/L (10-53); Albumin 1.7 g/dL (3.4-5.0); Alkaline Phosphatase 49 U/L (45-117); Anion Gap 8 meq/L (5-15); Aspartate Aminotransferase 473 U/L (15-37); Blood Urea Nitrogen 50 mg/dL (7-18); Calcium 7.8 mg/dL (8.5-10.1); Chloride 115 meq/L (98-107); Glomerular Filtration Rate 36 mL/min (>89); Glucose,Random 90 mg/dL (74-106); Magnesium 2.7 mg/dL (1.5-2.5); Phosphorus 3.2 mg/dL (2.5-4.9); Potassium 3.4 meq/L (3.5-5.1); Sodium 149 meq/L (136-145); Total Protein 4.9 g/dL (6.4-8.2)
[2018-04-10] MEDS: Levothyroxine 100 MCG Tablet PO SCH (06:18)
[2018-04-10] MEDS: Chlorhexidine 0.12% Oral Kit 15 ML UDC OROPHARYNG SCH ×2 (08:10→20:19)
--- NOTE | 2018-04-10 08:47 | P.PNNP ---
Subjective Interval history: Patient remains on vent passing urine status post hiatal hernia and gastric perforation repair Physical Exam Vital signs: Vital Signs 04/09/18 10:33 04/09/18 11:00 04/09/18 11:31 Temperature 99.1 F Pulse Rate 98 H 95 H Respiratory Rate 16 16 16 Blood Pressure 128/62 Pulse Oximetry 99 99 04/09/18 12:00 04/09/18 13:56 04/09/18 15:00 Temperature 99.0 F Pulse Rate 103 H 105 H Respiratory Rate 16 16 Blood Pressure 124/75 110/49 L Pulse Oximetry 98 99 04/09/18 15:55 04/09/18 16:00 04/09/18 17:40 Temperature Pulse Rate 109 H 109 H Respiratory Rate 17 16 Blood Pressure 114/53 L Pulse Oximetry 99 04/09/18 19:50 04/09/18 20:00 04/09/18 23:57 Temperature 100.3 F H Pulse Rate 98 H 122 H 116 H Respiratory Rate 16 16 16 Blood Pressure 118/63 Pulse Oximetry 98 98 98 04/10/18 00:00 04/10/18 03:41 04/10/18 04:00 Temperature 100.1 F H 100.4 F H Pulse Rate 120 H 100 H 95 H Respiratory Rate 16 16 16 Blood Pressure 120/63 120/72 Pulse Oximetry 97 98 98 04/10/18 08:16 04/10/18 08:20 Temperature Pulse Rate 107 H Respiratory Rate 16 16 Blood Pressure Pulse Oximetry 99 Intake & Output 04/09/18 04/10/18 04/10/18 18:59 06:59 18:59 Intake Total 2950 / 2950 1650 / 1650 Output Total 750 / 750 595 / 595 Balance 2200 / 2200 1055 / 1055 Weight 92.5 kg Intake: IV 2950 / 2950 1400 / 1400 Precedex Inj 200 MCG In NS Inj 50 / 50 48 ML @ 0.2 MCG/KG/HR 4.2 mls/ hr IV.CONT TITRATE PRN Rx#: [id number] D5W/LR Inj 1,000 ML @ 84 mls/hr 1000 / 1000 1000 / 1000 IV.CONT .[id number] [facility] Rx#: [id number] Diflucan 200 mg Premix Bag 100 100 / 100 ML @ 100 mls/hr IV.SIG Q24H [facility] Rx#:[id number] Diflucan 400 mg Premix Bag 200 200 / 200 ML @ 100 mls/hr IV.SIG ONCE ONE Rx#:[id number] Zosyn 3.375 GM Premix 50 ML @ 100 / 100 100 / 100 200 mls/hr IV.SIG Q6H [facility] Rx#: [id number] NS Inj 250 ML @ 15 mls/hr IV. 250 / 250 SIG ONCE [facility] Rx#:[id number] Flagyl 500 MG Inj 100 ML @ 100 100 / 100 200 / 200 mls/hr IV.SIG Q8H [facility] Rx#: [id number] Oral 0 / 0 Other 250 / 250 Output: Urine Amount (Catheter) 600 / 600 555 / 555 Indwelling Urethral Catheter 600 / 600 555 / 555 Gastric Drainage 50 / 50 0 / 0 Right Nare Nasogastric Tube 50 / 50 0 / 0 Wound Drainage 100 / 100 40 / 40 # 1 Right Anterior Abdomen 0 / 0 10 / 10 # 2 Left Anterior Abdomen 100 / 100 30 / 30 Other: # Bowel Movements 0 Narrative: GENERAL: Well-nourished, well-developed patient. SKIN: Warm and dry. HEAD: Normocephalic. EYES: No scleral icterus. No injection or drainage. NECK: Supple, trachea midline. No JVD or lymphadenopathy. CARDIOVASCULAR: Irregularly postsurgical scar in place RESPIRATORY: Breath sounds diminished at bases GASTROINTESTINAL: Abdomen soft postsurgical drain in place EXTREMITIES: Mild edema NEUROLOGICAL: Patient has been intubated - Urinary Catheter Management Indwelling Temp Sensing Catheter Cath placed during this visit: yes Urethral indwelling: No Reason for continuing: Hourly intake/output Insertion date: 04/04/18 Insertion time: 07:52 Indwelling Urethral Catheter Cath placed during this visit: yes Reason for continuing: Hourly intake/output Insertion date: 04/08/18 Insertion time: 16:51 Assessment and Plan - Assessment (1) Acute renal failure Code(s): N17.9 - Acute kidney failure, unspecified Status: Acute (2) Atrial fibrillation Code(s): I48.91 - Unspecified atrial fibrillation Status: Chronic (3) S/P CABG (coronary artery bypass graft) Code(s): Z95.1 - Presence of aortocoronary bypass graft Status: Acute (4) Pneumoperitoneum Code(s): K66.8 - Other specified disorders of peritoneum Status: Acute (5) Paraesophageal hernia Code(s): 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
[2018-04-10] MEDS: Polyethylene Glycol 3350 17 GM Packet PO SCH (08:48)
[2018-04-10] MEDS: Docusate Sodium 100 MG Capsule PO SCH ×2 (08:48→20:16)
[2018-04-10] MEDS: Multivitamin/Minerals Therapeutic Tablet PO SCH (08:49)
--- NOTE | 2018-04-10 09:09 | P.PNCC ---
Subjective Subjective Remarks/Hospital Course: This is a 77-year-old female. Date of admission 04/04/2018. Date of consultation 04/06/2018. Patient has no history of aortic stenosis, coronary disease, hypertension, hyperlipidemia, gastroesophageal reflux disease, hypothyroidism and depression. On 04/04, patient had a two-vessel CABG ZAPATA to LAD, reverse saphenous vein graft to OM of left circumflex with left EVH and CALRA excision. Without complications. Today, patient this morning was in atrial fibrillation with rapid ventricular response. Received 150 mg IV amiodarone and started on oral amiodarone 400 mg along with 25 mg of oral metoprolol tartrate.. She became bradycardic this afternoon and we are asked to evaluate the patient. She is received 2 g of calcium chloride and is currently been started on dopamine drip. Her heart rate and blood pressure immediately improved after the infusion of calcium chloride. In reviewing laboratories, potassium magnesium are within normal limits. She does have a new leukocytosis of 19,000. She denies shortness of breath. She is more confused likely due to hypoperfusion 04/07 Patient is lying in bed in NAD. Feeling nauseas, denies any abdominal pain. 04/08 Patient was given Lopressor, Cardizem and Digoxin overnight for tachycardic became hypotensive and started on Neosyn ( current MAP 81mmHg). Renal function worse today with Cr: 2.22 from 1.76 04/09 Patient s/p Laparoscopic partial reduction of paraesophageal hernia and wedge resection of greater curvature of stomach. Remains intubated postop on Levophed 3 mics, sedated with Fentanyl and on is Precedex drip. s/p [id number] PRBC overnight Hgb 9.6 this morning from 6.8 04/10 Patient remains intubated and sedated. On Levophed 2 mics. :100.4 at 4am, renal function is improving with Cr: 1.40 from 1.99 Objective Vital Signs / I&O: Vital Signs 04/09/18 10:33 04/09/18 11:00 04/09/18 11:31 Temperature 99.1 F Pulse Rate 98 H 95 H Respiratory Rate 16 16 16 Blood Pressure 128/62 Pulse Oximetry 99 99 04/09/18 12:00 04/09/18 13:56 04/09/18 15:00 Temperature 99.0 F Pulse Rate 103 H 105 H Respiratory Rate 16 16 Blood Pressure 124/75 110/49 L Pulse Oximetry 98 99 04/09/18 15:55 04/09/18 16:00 04/09/18 17:40 Temperature Pulse Rate 109 H 109 H Respiratory Rate 17 16 Blood Pressure 114/53 L Pulse Oximetry 99 04/09/18 19:50 04/09/18 20:00 04/09/18 23:57 Temperature 100.3 F H Pulse Rate 98 H 122 H 116 H Respiratory Rate 16 16 16 Blood Pressure 118/63 Pulse Oximetry 98 98 98 04/10/18 00:00 04/10/18 03:41 04/10/18 04:00 Temperature 100.1 F H 100.4 F H Pulse Rate 120 H 100 H 95 H Respiratory Rate 16 16 16 Blood Pressure 120/63 120/72 Pulse Oximetry 97 98 98 04/10/18 08:16 04/10/18 08:20 Temperature Pulse Rate 107 H Respiratory Rate 16 16 Blood Pressure Pulse Oximetry 99 Intake & Output 04/09/18 04/10/18 04/10/18 18:59 06:59 18:59 Intake Total 2950 / 2950 1650 / 1650 Output Total 750 / 750 595 / 595 Balance 2200 / 2200 1055 / 1055 Weight 92.5 kg Intake: IV 2950 / 2950 1400 / 1400 Precedex Inj 200 MCG In NS Inj 50 / 50 48 ML @ 0.2 MCG/KG/HR 4.2 mls/ hr IV.CONT TITRATE PRN Rx#: [id number] D5W/LR Inj 1,000 ML @ 84 mls/hr 1000 / 1000 1000 / 1000 IV.CONT .[id number] YASH Rx#: [id number] Diflucan 200 mg Premix Bag 100 100 / 100 ML @ 100 mls/hr IV.SIG Q24H YASH Rx#:[id number] Diflucan 400 mg Premix Bag 200 200 / 200 ML @ 100 mls/hr IV.SIG ONCE ONE Rx#:[id number] Zosyn 3.375 GM Premix 50 ML @ 100 / 100 100 / 100 200 mls/hr IV.SIG Q6H YASH Rx#: [id number] NS Inj 250 ML @ 15 mls/hr IV. 250 / 250 SIG ONCE YASH Rx#:[id number] Flagyl 500 MG Inj 100 ML @ 100 100 / 100 200 / 200 mls/hr IV.SIG Q8H [facility] Rx#: [id number] Oral 0 / 0 Other 250 / 250 Output: Urine Amount (Catheter) 600 / 600 555 / 555 Indwelling Urethral Catheter 600 / 600 555 / 555 Gastric Drainage 50 / 50 0 / 0 Right Nare Nasogastric Tube 50 / 50 0 / 0 Wound Drainage 100 / 100 40 / 40 # 1 Right Anterior Abdomen 0 / 0 10 / 10 # 2 Left Anterior Abdomen 100 / 100 30 / 30 Other: # Bowel Movements 0 Result Diagrams: 04/10/18 05:00 04/10/18 05:00 Other Results: Laboratory Results - last 12 hr 04/06/18 04/09/18 04/10/18 11:51 21:26 01:02 WBC RBC Hgb Hct MCV MCH MCHC RDW Plt Count MPV Prelim Diff (Auto) Neut % (Auto) Lymph % (Auto) [place] % (Auto) Eos % (Auto) Baso % (Auto) Neut # (Auto) Lymph # (Auto) [place] # (Auto) Eos # (Auto) Baso # (Auto) Differential Comment PT INR Sodium Potassium Chloride Carbon Dioxide Anion Gap BUN Creatinine Estimated GFR POC Glucose 124 H 88 92 Random Glucose Calcium Phosphorus Magnesium Total Bilirubin AST ALT Alkaline Phosphatase Total Protein Albumin 04/10/18 04/10/18 04/10/18 05:00 05:00 05:00 WBC 11.3 H D RBC 3.18 L Hgb 9.4 L Hct 28.3 L MCV 88.8 MCH 29.5 MCHC 33.2 RDW 16.4 Plt Count 242 MPV 8.2 Prelim Diff (Auto) Slide review pending Neut % (Auto) 86.1 H Lymph % (Auto) 7.0 L [place] % (Auto) 6.4 Eos % (Auto) 0.4 Baso % (Auto) 0.1 Neut # (Auto) 9.8 H Lymph # (Auto) 0.8 L [place] # (Auto) 0.7 Eos # (Auto) 0.0 Baso # (Auto) 0.0 Differential Comment . PT 15.5 H INR 1.5 Sodium 149 H Potassium 3.4 L Chloride 115 H Carbon Dioxide 26.0 Anion Gap 8 BUN 50 H Creatinine 1.40 H Estimated GFR 36 L POC Glucose Random Glucose 90 Calcium 7.8 L Phosphorus 3.2 D Magnesium 2.7 H Total Bilirubin 0.9 AST 473 H ALT 212 H Alkaline Phosphatase 49 Total Protein 4.9 L Albumin 1.7 L D 04/10/18 05:05 WBC RBC Hgb Hct MCV MCH MCHC RDW Plt Count MPV Prelim Diff (Auto) Neut % (Auto) Lymph % (Auto) [place] % (Auto) Eos % (Auto) Baso % (Auto) Neut # (Auto) Lymph # (Auto) [place] # (Auto) Eos # (Auto) Baso # (Auto) Differential Comment PT INR Sodium Potassium Chloride Carbon Dioxide Anion Gap BUN Creatinine Estimated GFR POC Glucose 92 Random Glucose Calcium Phosphorus Magnesium Total Bilirubin AST ALT Alkaline Phosphatase Total Protein Albumin Imaging: Abdomen X-Ray 04/07/18 00:00 CONCLUSION: Nonspecific bowel gas pattern with scattered small and large bowel gas. Abdomen/Bladder Ultrasound 04/08/18 00:00 CONCLUSION: Kidneys within normal limits. Right pleural effusion noted. Abdomen/Pelvis CT 04/08/18 10:09 CONCLUSION: 1. Prominent amount of free air and free fluid in the upper abdomen and within a large hiatal hernia. A large portion of the stomach is in a hiatal hernia. Most likely etiology for the findings is a perforated gastric ulcer. Findings discussed with the patient's nurse. 2. Distended gallbladder. Chest CT 04/08/18 10:09 CONCLUSION: 1. Large hiatal hernia containing a large portion of the stomach with moderate amount of free air in the hiatal hernia and in the upper abdomen. Distal gastric wall thickening and extraluminal fluid adjacent to the distal stomach. Most likely etiology for the findings is a perforated gastric ulcer. Free fluid is also seen in the upper abdomen. 2. New bilateral lower lobe atelectasis/consolidation and small bilateral pleural effusions. Chest X-Ray 04/08/18 22:44 CONCLUSION: Satisfactory tube and line positioning. Improved aeration. Objective Remarks: GENERAL: Patient is 77 yo lying in bed intubated and sedated SKIN: Warm and dry. HEAD: Normocephalic. EYES: No scleral icterus. No injection or drainage. NECK: Supple, trachea midline. No JVD or lymphadenopathy. CARDIOVASCULAR: Tachycardic without murmurs, gallops, or rubs. RESPIRATORY: Breath sounds equal bilaterally. No accessory muscle use. GASTROINTESTINAL: Abdomen soft, non-tender, nondistended. MUSCULOSKELETAL: No cyanosis, or edema. Neuro: Sedated Assessment and Plan - Assessment and Plan Plan: Neuro/Psych: Depressive disorder NOS History of TIA On Fentanyl infusion for sedation and analgesia. On Precedex drip. Daily sedation vacation Currently on paroxetine 10 mg daily for depression. CV: Postoperative CABG x2 ZAPATA to LAD, reverse saphenous vein graft to OM with left EVH and CLARA excision -Dr. Warner Atrial fibrillation Essential hypertension by history Hyperlipidemia Coronary artery disease status post PTCA left anterior descending proximal Wean off Levophed monitor HR and BP keep MAP>65mmHG Lactic acid 2.0 Cardiac catheterization 417 revealed left ear 0.48 cm area. EF 55-60%. Moderate aortic regurgitation. On rosuvastatin 10 mg daily at home. Noted allergies to atorvastatin simvastatin Continue aspirin 81 mg daily Cards is following- Dr. Valle Resp: Obstructive sleep apnea Continue with vent support keep sats> 92% Bronchodilators, ICU vent bundle. SBT daily as jose GI: s/p Laparoscopic partial reduction of paraesophageal hernia, wedge resection of greater curvature of stomach 04/08 Diverticulosis Gastroesophageal reflux disease Hiatal hernia Pantoprazole for GI prophylaxis Docusate sodium/senna 1 tablet twice daily for hours along with polythene glycol 17 g daily KUB abdomen 04/07 : Nonspecific bowel gas pattern with scattered small and large bowel gas. 04/08 CT abd/pelvis- Prominent amount of free air and free fluid in the upper abdomen and within a large hiatal hernia. A large portion of the stomach is in a hiatal hernia. Most likely etiology for the findings is a perforated gastric ulcer. 04/08 s/p Laparoscopic partial reduction of paraesophageal hernia, wedge resection of greater curvature of stomach, washout, drain placement performed. Monitor OANH drainage- Surgery- Dr. Craig. Endo: Hypothyroidism Currently on levothyroxine 100 mcg p.o. daily TSH:0.72 Sliding scale insulin with aspart insulin Renal: Acute kidney injury Monitor renal function, I/O's, electrolytes replacement as needed. Avoid nephrotoxins Renal function is improving with Cr:1.40 from 1.99 . Renal is following- Dr. Holliday On D5LR@84ml/hr, place on Free water 250ml Q8 Renal US: No hydronephrosis Heme: Leukocytosis Normocytic anemia Chronic warfarin use Monitor CBC, Coags daily. s/p 4uFFP and Vitamin K 5mgx1 for OR 04/08 INR 1.5 today s/p transfusion 2u PRBC overnight 04/09- ID: On empiric abx ( Zosyn, Diflucan) Monitor for signs of infections ( fever, WBC) Follow up BC 04/08: NGTD ID is following MSK: Elevated BMI Osteoporosis/osteoarthritis Lumbar radiculopathy Physical therapy evaluate and treat Access -Utilize peripheral IV. Central line left subclavian cordis with dual-lumen placed 04/04 Prophylaxis -GI -pantoprazole -DVT-SCD/pharmacological prophylaxis- off Coumadin- INR 1.5today CCT 35 mins
[2018-04-10 09:32] LABS: Eosinophils 1 % (0-4); Lymphocytes 4 % (9-44); Monocytes 7 % (0-8); Myelocytes 1 % (0-0); Platelet Estimate Normal (Normal); Platelet Morphology Normal (Normal); Tallied Nucleated RBC 2 (0-0); Toxic Granulation 1+
--- NOTE | 2018-04-10 10:07 | P.PNCV ---
- Note Subjective/Hospital Course: 77/ female initially seen on 03/13/18 in [facility] office with Dr Warner, hx of progressive SOB over past few months . Known hx of CAD previous PCI's , ECHO revealed severe . Cardiac cath revealed multivessel disease PMH: Afib, Aortic stenosis, Asthma, CAD (coronary artery disease), CHF ( congestive heart failure), HLD (hyperlipidemia), HTN (hypertension) Hiatal hernia, Hypothyroid, LBBB (left bundle branch block), Mitral regurgitation, Myocardial infarct, Sleep apnea, TIA (transient ischemic attack) UTI (urinary tract infection) 04/04 pt electively admitted for surgery PREPROCEDURE DIAGNOSES 1. Severe Multi Vessel Coronary Artery Disease. 2. Severe aortic stenosis 3. Atrial fibrillation status post ablation POSTPROCEDURE DIAGNOSES 1. Severe Multi Vessel Coronary Artery Disease. 2. Severe aortic stenosis 3. Atrial fibrillation status post ablation 4. Heavily calcified ascending aorta SURGICAL PROCEDURE 1. Clampless off-pump Coronary Artery Bypass Grafting x 2 with Left Internal Mammary Artery (ZAPATA) to Left Anterior Descending (LAD), reverse saphenous vein graft to obtuse Marginal branch of the left Circumflex artery 2. Left leg Endoscopic Vein [place] 3. Left atrial appendage excision pt extubated after surgery crystalloid 2300cc, 1500cc EBL, 750cc cell saver 04/05 pt up in chair ECG with some mild global st elevation / pericarditis + rub, no pressors , stable for transfer, resume BB will need to resume coumadin when chest tubes out 04/06 chest tube dc without difficultly pt went into afib RVR last night and this am received 2nd bolus of amiodarone / po amiodarone increased will resume coumadin / this pm goal 2.5 / followed by Dr Menendez at home 04/07 pt was transferred back to CVICU yesterday became bradycardic / hypotensive / despite IV fluids calcium chloride / required Dopamine gtt / remains in afib rate now 90's , BP improved discussed with Dr Warner/ will consult cardiology regarding cardiac meds start lovenox and coumadin/ dc when INR > 2.0 dc fem line / consult PT / observe in CVICU today 04/08 Remains in atrial fibrillation with rapid ventricular response heart rate in the 120s Overnight events noted she received diltiazem, digoxin and Lopressor for heart rate with resultant hypotension requiring Dayday-Synephrine which is presently being weaned. Remains somewhat labile with her blood pressure Had echo this morning. Awaiting results Renal function worsening. Will consult nephrology. Likely secondary to hypoperfusion If ventricular function is okay, will give gentle hydration - Preoperative Diagnosis (1) Pneumoperitoneum (2) Paraesophageal hernia - Postoperative Diagnosis (1) Pneumoperitoneum (2) Paraesophageal hernia (3) Gastric ulcer, acute with perforation Date of procedure: 04/08/18 Procedure: Diagnostic laparoscopy Laparoscopic partial reduction of paraesophageal hernia Laparoscopic wedge resection of greater curvature of stomach 04/09 Operative findings noted Remains intubated and mechanically ventilated On Levophed for hemodynamic support. Weaning as tolerated Greatly appreciate Dr. Craig's input and assistance Renal function improving. Appreciate Dr. Holliday's input 04/10 remains sedated on vent 40% Fi02 SVV 17, CO 5.2/2.7 on Levo gtt at 2 mcq, in afib rate 110 creatinine improving left OANH drain 30cc/ 12 hrs, right OANH drain 10cc/ 12hr some drainage from prior chest tubes sites/ will dc prevena dressing Objective: Vital Signs - 24 hr 04/09/18 10:33 04/09/18 11:00 04/09/18 11:31 Temperature 99.1 F Pulse Rate 98 H 95 H Respiratory Rate 16 16 16 Blood Pressure 128/62 Pulse Oximetry 99 99 04/09/18 12:00 04/09/18 13:56 04/09/18 15:00 Temperature 99.0 F Pulse Rate 103 H 105 H Respiratory Rate 16 16 Blood Pressure 124/75 110/49 L Pulse Oximetry 98 99 04/09/18 15:55 04/09/18 16:00 04/09/18 17:40 Temperature Pulse Rate 109 H 109 H Respiratory Rate 17 16 Blood Pressure 114/53 L Pulse Oximetry 99 04/09/18 19:50 04/09/18 20:00 04/09/18 23:57 Temperature 100.3 F H Pulse Rate 98 H 122 H 116 H Respiratory Rate 16 16 16 Blood Pressure 118/63 Pulse Oximetry 98 98 98 04/10/18 00:00 04/10/18 03:41 04/10/18 04:00 Temperature 100.1 F H 100.4 F H Pulse Rate 120 H 100 H 95 H Respiratory Rate 16 16 16 Blood Pressure 120/63 120/72 Pulse Oximetry 97 98 98 04/10/18 07:00 04/10/18 08:16 04/10/18 08:20 Temperature Pulse Rate 107 H 107 H Respiratory Rate 16 16 Blood Pressure Pulse Oximetry 99 GENERAL: sedated on vent RASS -2, orally intubated SKIN: Warm and dry. prevena dressing to chest / will remove HEAD: Atraumatic. Normocephalic. EYES: Pupils equal and round. No scleral icterus. No injection or drainage. ENT: No nasal bleeding or discharge. Mucous membranes pink and moist. NECK: Trachea midline. No JVD. CARDIOVASCULAR: irregular rate and rhythm, 3/6 sm / mild general edema + distal pulses , RESPIRATORY: No accessory muscle use. Clear to auscultation. Breath sounds equal bilaterally. GASTROINTESTINAL: Abdomen soft, slightly distended, hypoactive bowel sounds, OANH drain x 2 , abd incisions intact and well approximated / NG tube to low low intermittent suction MUSCULOSKELETAL: Extremities without clubbing, cyanosis, mild edema. NEUROLOGICAL: RASS - 2 PSYCHIATRIC: NA Labs: Laboratory Results - last 12 hr 04/06/18 04/10/18 04/10/18 11:51 01:02 05:00 WBC 11.3 H D RBC 3.18 L Hgb 9.4 L Hct 28.3 L MCV 88.8 MCH 29.5 MCHC 33.2 RDW 16.4 Plt Count 242 MPV 8.2 Prelim Diff (Auto) Slide review pending Neut % (Auto) 86.1 H Lymph % (Auto) 7.0 L [place] % (Auto) 6.4 Eos % (Auto) 0.4 Baso % (Auto) 0.1 Neut # (Auto) 9.8 H Lymph # (Auto) 0.8 L [place] # (Auto) 0.7 Eos # (Auto) 0.0 Baso # (Auto) 0.0 WBC Differential Manual diff final Seg Neuts % (Manual) 58 Band Neuts % (Manual) 29 H Lymphocytes % (Manual) 4 L Monocytes % (Manual) 7 Eosinophils % (Manual) 1 Myelocytes % (Man) 1 H Abs Neuts (Manual) 9.9 H Nucleated RBCs/100 WBC 2 H Differential Comment . Toxic Granulation 1+ H Platelet Estimate Normal Platelet Morphology Normal PT INR Sodium Potassium Chloride Carbon Dioxide Anion Gap BUN Creatinine Estimated GFR POC Glucose 124 H 92 Random Glucose Calcium Phosphorus Magnesium Total Bilirubin AST ALT Alkaline Phosphatase Total Protein Albumin 11/05/18 11/05/18 11/05/18 05:00 05:00 05:05 WBC RBC Hgb Hct MCV MCH MCHC RDW Plt Count MPV Prelim Diff (Auto) Neut % (Auto) Lymph % (Auto) [place] % (Auto) Eos % (Auto) Baso % (Auto) Neut # (Auto) Lymph # (Auto) [place] # (Auto) Eos # (Auto) Baso # (Auto) WBC Differential Seg Neuts % (Manual) Band Neuts % (Manual) Lymphocytes % (Manual) Monocytes % (Manual) Eosinophils % (Manual) Myelocytes % (Man) Abs Neuts (Manual) Nucleated RBCs/100 WBC Differential Comment Toxic Granulation Platelet Estimate Platelet Morphology PT 15.5 H INR 1.5 Sodium 149 H Potassium 3.4 L Chloride 115 H Carbon Dioxide 26.0 Anion Gap 8 BUN 50 H Creatinine 1.40 H Estimated GFR 36 L POC Glucose 92 Random Glucose 90 Calcium 7.8 L Phosphorus 3.2 D Magnesium 2.7 H Total Bilirubin 0.9 AST 473 H ALT 212 H Alkaline Phosphatase 49 Total Protein 4.9 L Albumin 1.7 L D Result Diagrams: 04/10/18 05:00 04/10/18 05:00 Telemetry: afib - Plan (1) Severe aortic stenosis Plan: will need planned TAVR after discharge (4) Atrial fibrillation Plan: s/p atrial appendage excision start lovenox / dc when INR>2.0 resume Coumadin consult cardiology regarding cardiac meds for rate control (5) COPD (chronic obstructive pulmonary disease) Plan: nebs ezpap and acapella (6) S/P CABG (coronary artery bypass graft) Plan: ASA, resume home med crestor pulm toileting , nebs ezpap, acapella OOB ambulate eval for rehab at discharge (7) S/P exploratory laparotomy Plan: general surgery following
--- NOTE | 2018-04-10 10:21 | XR ---
EXAM DATE: 04/10/2018 10:09 AM EST AGE/SEX: 77 years / Female INDICATIONS: VDRF CLINICAL DATA: This is the patient's initial encounter. Patient reports that signs and symptoms have been present for 3 days and indicates a pain score of Nonresponsive. MEDICAL/SURGICAL HISTORY: Chronic obstructive pulmonary disease. Congestive heart failure. My ocardial infarction. None. COMPARISON: [facility] – [place], CHEST 1V SINGLE AP, 04/08/2018. . FINDINGS: A single AP view of the chest demonstrates bilateral parenchymal densities greater in the lung bases. Probable bilateral pleural effusions. Heart normal in size. Evidence of previous median sternotomy. Nasogastric tube with tip in stomach. Heart valve replacement. Left subclavian line and endotracheal tube unchanged. The cardiomediastinal contours are unremarkable. Osseous structures are intact. CONCLUSION: Bibasilar consolidation and pleural effusions. Electronically signed by: Nawaf Fitzgerald MD 04/10/2018 10:20 AM EST
--- NOTE | 2018-04-10 11:40 | P.PNGS ---
Subjective Interval history: Remains ventilated. On fentanyl gtt. Levophed 2mcg. Low grade temps and WBC 11. Physical Exam Vital signs: Vital Signs 04/09/18 12:00 04/09/18 13:56 04/09/18 15:00 Temperature 99.0 F Pulse Rate 103 H 105 H Respiratory Rate 16 16 Blood Pressure 124/75 110/49 L Pulse Oximetry 98 99 04/09/18 15:55 04/09/18 16:00 04/09/18 17:40 Temperature Pulse Rate 109 H 109 H Respiratory Rate 17 16 Blood Pressure 114/53 L Pulse Oximetry 99 04/09/18 19:50 04/09/18 20:00 04/09/18 23:57 Temperature 100.3 F H Pulse Rate 98 H 122 H 116 H Respiratory Rate 16 16 16 Blood Pressure 118/63 Pulse Oximetry 98 98 98 04/10/18 00:00 04/10/18 03:41 04/10/18 04:00 Temperature 100.1 F H 100.4 F H Pulse Rate 120 H 100 H 95 H Respiratory Rate 16 16 16 Blood Pressure 120/63 120/72 Pulse Oximetry 97 98 98 04/10/18 07:00 04/10/18 08:00 04/10/18 08:16 Temperature 100.4 F H Pulse Rate 108 H 107 H 107 H Respiratory Rate 16 16 Blood Pressure 117/63 117/63 Pulse Oximetry 98 04/10/18 08:20 Temperature Pulse Rate Respiratory Rate 16 Blood Pressure Pulse Oximetry 99 Intake & Output 04/09/18 04/10/18 04/10/18 18:59 06:59 18:59 Intake Total 2950 / 2950 1650 / 1650 Output Total 750 / 750 595 / 595 Balance 2200 / 2200 1055 / 1055 Weight 92.5 kg Intake: IV 2950 / 2950 1400 / 1400 Precedex Inj 200 MCG In NS Inj 50 / 50 48 ML @ 0.2 MCG/KG/HR 4.2 mls/ hr IV.CONT TITRATE PRN Rx#: [id number] D5W/LR Inj 1,000 ML @ 84 mls/hr 1000 / 1000 1000 / 1000 IV.CONT .[id number] [facility] Rx#: [id number] Diflucan 200 mg Premix Bag 100 100 / 100 ML @ 100 mls/hr IV.SIG Q24H [facility] Rx#:[id number] Diflucan 400 mg Premix Bag 200 200 / 200 ML @ 100 mls/hr IV.SIG ONCE ONE Rx#:[id number] Zosyn 3.375 GM Premix 50 ML @ 100 / 100 100 / 100 200 mls/hr IV.SIG Q6H [facility] Rx#: [id number] NS Inj 250 ML @ 15 mls/hr IV. 250 / 250 SIG ONCE [facility] Rx#:[id number] Flagyl 500 MG Inj 100 ML @ 100 100 / 100 200 / 200 mls/hr IV.SIG Q8H [facility] Rx#: [id number] Oral 0 / 0 Other 250 / 250 Output: Urine Amount (Catheter) 600 / 600 555 / 555 Indwelling Urethral Catheter 600 / 600 555 / 555 Gastric Drainage 50 / 50 0 / 0 Right Nare Nasogastric Tube 50 / 50 0 / 0 Wound Drainage 100 / 100 40 / 40 # 1 Right Anterior Abdomen 0 / 0 10 / 10 # 2 Left Anterior Abdomen 100 / 100 30 / 30 Other: # Bowel Movements 0 Narrative: Ventilated sedated Abd: soft, inc c/d/i, OANH maroon output, NG in place to suction. - Urinary Catheter Management Indwelling Temp Sensing Catheter Cath placed during this visit: yes Urethral indwelling: No Reason for continuing: Hourly intake/output Insertion date: 04/04/18 Insertion time: 07:52 Indwelling Urethral Catheter Cath placed during this visit: yes Reason for continuing: Hourly intake/output Insertion date: 04/08/18 Insertion time: 16:51 Results - Labs 04/10/18 05:00 04/10/18 05:00 Laboratory Results - last 24 hr 04/06/18 04/08/18 04/09/18 11:51 14:02 12:19 WBC RBC Hgb Hct MCV MCH MCHC RDW Plt Count MPV Prelim Diff (Auto) Neut % (Auto) Lymph % (Auto) [place] % (Auto) Eos % (Auto) Baso % (Auto) Neut # (Auto) Lymph # (Auto) [place] # (Auto) Eos # (Auto) Baso # (Auto) WBC Differential Seg Neuts % (Manual) Band Neuts % (Manual) Lymphocytes % (Manual) Monocytes % (Manual) Eosinophils % (Manual) Myelocytes % (Man) Abs Neuts (Manual) Nucleated RBCs/100 WBC Differential Comment Toxic Granulation Platelet Estimate Platelet Morphology PT INR Puncture Site Patient Temperature O2 Saturation ABG pH ABG pCO2 ABG pO2 ABG HCO3 ABG O2 Content ABG Base Excess ABG Methemoglobin Hemoglobin Carboxyhemoglobin O2 Delivery Device Vent Setting Inspired O2 Critical Value Sodium Potassium Chloride Carbon Dioxide Anion Gap BUN Creatinine Estimated GFR POC Glucose 124 H 94 Random Glucose Calcium Phosphorus Magnesium Total Bilirubin AST ALT Alkaline Phosphatase Total Protein Albumin Blood Bank Comment 04/09/18 04/09/18 04/09/18 13:58 17:10 21:26 WBC RBC Hgb Hct MCV MCH MCHC RDW Plt Count MPV Prelim Diff (Auto) Neut % (Auto) Lymph % (Auto) [place] % (Auto) Eos % (Auto) Baso % (Auto) Neut # (Auto) Lymph # (Auto) [place] # (Auto) Eos # (Auto) Baso # (Auto) WBC Differential Seg Neuts % (Manual) Band Neuts % (Manual) Lymphocytes % (Manual) Monocytes % (Manual) Eosinophils % (Manual) Myelocytes % (Man) Abs Neuts (Manual) Nucleated RBCs/100 WBC Differential Comment Toxic Granulation Platelet Estimate Platelet Morphology PT INR Puncture Site [place] Patient Temperature 98.6 O2 Saturation 96 ABG pH 7.49 H ABG pCO2 29 L ABG pO2 100 ABG HCO3 22 ABG O2 Content 13.4 ABG Base Excess -1.2 ABG Methemoglobin 1.4 Hemoglobin 9.8 L Carboxyhemoglobin 1.0 O2 Delivery Device Ventilator Vent Setting See comments Inspired O2 40 Critical Value No Sodium Potassium Chloride Carbon Dioxide Anion Gap BUN Creatinine Estimated GFR POC Glucose 92 88 Random Glucose Calcium Phosphorus Magnesium Total Bilirubin AST ALT Alkaline Phosphatase Total Protein Albumin Blood Bank Comment 04/10/18 04/10/18 04/10/18 01:02 05:00 05:00 WBC 11.3 H D RBC 3.18 L Hgb 9.4 L Hct 28.3 L MCV 88.8 MCH 29.5 MCHC 33.2 RDW 16.4 Plt Count 242 MPV 8.2 Prelim Diff (Auto) Slide review pending Neut % (Auto) 86.1 H Lymph % (Auto) 7.0 L [place] % (Auto) 6.4 Eos % (Auto) 0.4 Baso % (Auto) 0.1 Neut # (Auto) 9.8 H Lymph # (Auto) 0.8 L [place] # (Auto) 0.7 Eos # (Auto) 0.0 Baso # (Auto) 0.0 WBC Differential Manual diff final Seg Neuts % (Manual) 58 Band Neuts % (Manual) 29 H Lymphocytes % (Manual) 4 L Monocytes % (Manual) 7 Eosinophils % (Manual) 1 Myelocytes % (Man) 1 H Abs Neuts (Manual) 9.9 H Nucleated RBCs/100 WBC 2 H Differential Comment . Toxic Granulation 1+ H Platelet Estimate Normal Platelet Morphology Normal PT INR Puncture Site Patient Temperature O2 Saturation ABG pH ABG pCO2 ABG pO2 ABG HCO3 ABG O2 Content ABG Base Excess ABG Methemoglobin Hemoglobin Carboxyhemoglobin O2 Delivery Device Vent Setting Inspired O2 Critical Value Sodium 149 H Potassium 3.4 L Chloride 115 H Carbon Dioxide 26.0 Anion Gap 8 BUN 50 H Creatinine 1.40 H Estimated GFR 36 L POC Glucose 92 Random Glucose 90 Calcium 7.8 L Phosphorus 3.2 D Magnesium 2.7 H Total Bilirubin 0.9 AST 473 H ALT 212 H Alkaline Phosphatase 49 Total Protein 4.9 L Albumin 1.7 L D Blood Bank Comment 04/10/18 04/10/18 04/10/18 05:00 05:05 10:55 WBC RBC Hgb Hct MCV MCH MCHC RDW Plt Count MPV Prelim Diff (Auto) Neut % (Auto) Lymph % (Auto) [place] % (Auto) Eos % (Auto) Baso % (Auto) Neut # (Auto) Lymph # (Auto) [place] # (Auto) Eos # (Auto) Baso # (Auto) WBC Differential Seg Neuts % (Manual) Band Neuts % (Manual) Lymphocytes % (Manual) Monocytes % (Manual) Eosinophils % (Manual) Myelocytes % (Man) Abs Neuts (Manual) Nucleated RBCs/100 WBC Differential Comment Toxic Granulation Platelet Estimate Platelet Morphology PT 15.5 H INR 1.5 Puncture Site Patient Temperature O2 Saturation ABG pH ABG pCO2 ABG pO2 ABG HCO3 ABG O2 Content ABG Base Excess ABG Methemoglobin Hemoglobin Carboxyhemoglobin O2 Delivery Device Vent Setting Inspired O2 Critical Value Sodium Potassium Chloride Carbon Dioxide Anion Gap BUN Creatinine Estimated GFR POC Glucose 92 112 H Random Glucose Calcium Phosphorus Magnesium Total Bilirubin AST ALT Alkaline Phosphatase Total Protein Albumin Blood Bank Comment - Imaging Imaging: ITS Impressions Abdomen X-Ray 04/07/18 00:00 CONCLUSION: Nonspecific bowel gas pattern with scattered small and large bowel gas. Abdomen/Bladder Ultrasound 04/08/18 00:00 CONCLUSION: Kidneys within normal limits. Right pleural effusion noted. Abdomen/Pelvis CT 04/08/18 10:09 CONCLUSION: 1. Prominent amount of free air and free fluid in the upper abdomen and within a large hiatal hernia. A large portion of the stomach is in a hiatal hernia. Most likely etiology for the findings is a perforated gastric ulcer. Findings discussed with the patient's nurse. 2. Distended gallbladder. Chest CT 04/08/18 10:09 CONCLUSION: 1. Large hiatal hernia containing a large portion of the stomach with moderate amount of free air in the hiatal hernia and in the upper abdomen. Distal gastric wall thickening and extraluminal fluid adjacent to the distal stomach. Most likely etiology for the findings is a perforated gastric ulcer. Free fluid is also seen in the upper abdomen. 2. New bilateral lower lobe atelectasis/consolidation and small bilateral pleural effusions. Chest X-Ray 04/10/18 09:12 CONCLUSION: Bibasilar consolidation and pleural effusions. 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 Will continue present care; OK from GS standpoint to place patient back on Lovenox, but would not start Warfarin at this point. (3) Severe aortic stenosis Code(s): I35.0 - Nonrheumatic aortic (valve) stenosis Status: Chronic (4) Atrial fibrillation Code(s): I48.91 - Unspecified atrial fibrillation Status: Chronic (5) S/P CABG (coronary artery bypass graft) Code(s): Z95.1 - Presence of aortocoronary bypass graft Status: Acute - Plan POD 2 s/p lap wedge resection of stomach and partial reduction of large hiatal hernia for multiple perforated ulcers of greater curve. Remains critical but fairly stable. Cont NG and OANH drains. No enteral feeding. If extubated in the next few days will check UGI and then start oral or enteral feeding.
[2018-04-10] MEDS: Pantoprazole Inj 40 MG Vial IV.PUSH SCH ×2 (12:30→23:24)
[2018-04-10] MEDS: Dextrose 5%/NaCl 0.45% Inj 1,000 ML IV.CONT SCH ×2 (12:30→23:17)
[2018-04-10] MEDS: fentaNYL 10 mcg/mL Premix Drip 2,500 MCG/250 ML BAG IV.SIG PRN (16:49)
--- NOTE | 2018-04-10 19:54 | P.PNID ---
Subjective Remarks: off pressors at the time of my visit, but had low BP afebrile, earlier low grade fefver < 100.5 Antibiotics: fluconazol zosyn Allergies/Adverse Reactions: Allergies atorvastatin Adverse Reaction (Verified 04/04/18 06:21) Hypotension simvastatin Adverse Reaction (Verified 04/04/18 06:21) Hypotension Objective Vital Signs 04/09/18 20:00 04/09/18 23:57 04/10/18 00:00 Temperature 100.3 F H 100.1 F H Pulse Rate 122 H 116 H 120 H Respiratory Rate 16 16 16 Blood Pressure 118/63 120/63 Pulse Oximetry 98 98 97 04/10/18 03:41 04/10/18 04:00 04/10/18 07:00 Temperature 100.4 F H 100.4 F H Pulse Rate 100 H 95 H 108 H Respiratory Rate 16 16 16 Blood Pressure 120/72 117/63 Pulse Oximetry 98 98 98 04/10/18 08:00 04/10/18 08:16 04/10/18 08:20 Temperature Pulse Rate 107 H 107 H Respiratory Rate 16 16 Blood Pressure 117/63 Pulse Oximetry 99 04/10/18 11:00 04/10/18 11:57 04/10/18 11:58 Temperature 99.9 F H Pulse Rate 109 H 109 H Respiratory Rate 16 16 16 Blood Pressure 125/62 Pulse Oximetry 98 99 04/10/18 15:00 04/10/18 16:46 Temperature 98.9 F Pulse Rate 108 H 91 H Respiratory Rate 16 16 Blood Pressure 113/55 L Pulse Oximetry 98 97 Intake & Output 04/10/18 04/10/18 04/11/18 06:59 18:59 06:59 Intake Total 1650 / 1650 900 / 900 Output Total 595 / 595 600 / 600 Balance 1055 / 1055 300 / 300 Weight 92.5 kg Intake: IV 1400 / 1400 400 / 400 D5W/LR Inj 1,000 ML @ 84 mls/hr 1000 / 1000 IV.CONT .[id number] [facility] Rx#: [id number] Diflucan 200 mg Premix Bag 100 100 / 100 ML @ 100 mls/hr IV.SIG Q24H [facility] Rx#:[id number] Zosyn 3.375 GM Premix 50 ML @ 100 / 100 50 / 50 200 mls/hr IV.SIG Q6H [facility] Rx#: [id number] fentaNYL 10 mcg/mL Premix Drip 250 / 250 2,500 mcg In 250 ml @ 50 MCG/HR 5 mls/hr IV.SIG TITRATE PRN Rx #:[id number] Flagyl 500 MG Inj 100 ML @ 100 200 / 200 100 / 100 mls/hr IV.SIG Q8H [facility] Rx#: [id number] Oral 0 / 0 0 / 0 Other 250 / 250 500 / 500 Output: Urine Amount (Catheter) 555 / 555 545 / 545 Indwelling Urethral Catheter 555 / 555 545 / 545 Gastric Drainage 0 / 0 25 / 25 Right Nare Nasogastric Tube 0 / 0 25 / 25 Wound Drainage 40 / 40 30 / 30 # 1 Right Anterior Abdomen 10 15 / 15 # 2 Left Anterior Abdomen 15 15 Other: # Bowel Movements 0 0 04/08/18 14:33 Blood - Peripheral Aerobic Blood Culture - Preliminary No growth in 2 days 04/08/18 14:33 Blood - Peripheral Anaerobic Blood Culture - Preliminary No growth in 2 days 04/08/18 14:40 Blood - Peripheral Aerobic Blood Culture - Preliminary No growth in 2 days 04/08/18 14:40 Blood - Peripheral Anaerobic Blood Culture - Preliminary No growth in 2 days Lab - Hematology Results 04/08/18 04/09/18 04/10/18 22:30 05:30 05:00 WBC 6.0 D 5.1 11.3 H D RBC 2.21 L 3.10 L 3.18 L Hgb 6.8 L* D 9.6 L D 9.4 L Hct 20.7 L* 26.8 L 28.3 L MCV 93.6 86.7 D 88.8 MCH 30.9 31.0 29.5 MCHC 33.0 35.7 33.2 RDW 13.7 15.7 16.4 Plt Count 293 D 219 242 MPV 8.6 7.9 8.2 Prelim Diff (Auto) Slide review pending Slide review pending Slide review pending Neut % (Auto) 78.3 H 86.1 H Lymph % (Auto) 12.1 7.0 L [place] % (Auto) 9.1 H 6.4 Eos % (Auto) 0.3 0.4 Baso % (Auto) 0.2 0.1 Neut # (Auto) 4.0 9.8 H Lymph # (Auto) 0.6 L 0.8 L [place] # (Auto) 0.5 0.7 Eos # (Auto) 0.0 0.0 Baso # (Auto) 0.0 0.0 WBC Differential Manual diff final Manual diff final Manual diff final Seg Neuts % (Manual) 55 59 58 Band Neuts % (Manual) 24 H 31 H 29 H Lymphocytes % (Manual) 8 L 7 L 4 L Monocytes % (Manual) 9 H 1 7 Eosinophils % (Manual) 1 1 Metamyelocytes % (Man) 3 H 2 H Myelocytes % (Man) 1 H Abs Neuts (Manual) 4.9 4.7 9.9 H Nucleated RBCs/100 WBC 2 H Differential Comment . . . Toxic Granulation 1+ H 1+ H Platelet Estimate Normal Normal Normal Platelet Morphology Normal Enlarged H Normal RBC Morphology Normal Ovalocytes 1+ H Lab - Chemistry Results 04/06/18 04/08/18 04/08/18 11:51 22:30 23:59 Sodium 143 Potassium 4.5 Chloride 109 H Carbon Dioxide 23.4 Anion Gap 11 BUN 74 H Creatinine 2.18 H Estimated GFR 22 L POC Glucose 124 H Random Glucose 96 Lactic Acid 2.0 Calcium 8.6 Phosphorus Magnesium Total Bilirubin AST ALT Alkaline Phosphatase Total Protein Albumin 04/09/18 04/09/18 04/09/18 01:13 EST 05:30 09:24 Sodium 146 H Potassium 3.8 Chloride 111 H Carbon Dioxide 25.1 Anion Gap 10 BUN 72 H Creatinine 1.99 H Estimated GFR 24 L POC Glucose 100 105 Random Glucose 117 H Lactic Acid Calcium 8.2 L Phosphorus 4.2 Magnesium 2.6 H Total Bilirubin 1.3 H AST 710 H ALT 261 H Alkaline Phosphatase 44 L Total Protein 5.1 L Albumin 2.4 L 04/09/18 04/09/18 04/09/18 12:19 17:10 21:26 Sodium Potassium Chloride Carbon Dioxide Anion Gap BUN Creatinine Estimated GFR POC Glucose 94 92 88 Random Glucose Lactic Acid Calcium Phosphorus Magnesium Total Bilirubin AST ALT Alkaline Phosphatase Total Protein Albumin 04/10/18 04/10/18 04/10/18 01:02 05:00 05:05 Sodium 149 H Potassium 3.4 L Chloride 115 H Carbon Dioxide 26.0 Anion Gap 8 BUN 50 H Creatinine 1.40 H Estimated GFR 36 L POC Glucose 92 92 Random Glucose 90 Lactic Acid Calcium 7.8 L Phosphorus 3.2 D Magnesium 2.7 H Total Bilirubin 0.9 AST 473 H ALT 212 H Alkaline Phosphatase 49 Total Protein 4.9 L Albumin 1.7 L D 04/10/18 04/10/18 10:55 15:21 Sodium Potassium Chloride Carbon Dioxide Anion Gap BUN Creatinine Estimated GFR POC Glucose 112 H 106 Random Glucose Lactic Acid Calcium Phosphorus Magnesium Total Bilirubin AST ALT Alkaline Phosphatase Total Protein Albumin Imaging: ITS Impressions Abdomen X-Ray 04/07/18 00:00 CONCLUSION: Nonspecific bowel gas pattern with scattered small and large bowel gas. Abdomen/Bladder Ultrasound 04/08/18 00:00 CONCLUSION: Kidneys within normal limits. Right pleural effusion noted. Abdomen/Pelvis CT 04/08/18 10:09 CONCLUSION: 1. Prominent amount of free air and free fluid in the upper abdomen and within a large hiatal hernia. A large portion of the stomach is in a hiatal hernia. Most likely etiology for the findings is a perforated gastric ulcer. Findings discussed with the patient's nurse. 2. Distended gallbladder. Chest CT 04/08/18 10:09 CONCLUSION: 1. Large hiatal hernia containing a large portion of the stomach with moderate amount of free air in the hiatal hernia and in the upper abdomen. Distal gastric wall thickening and extraluminal fluid adjacent to the distal stomach. Most likely etiology for the findings is a perforated gastric ulcer. Free fluid is also seen in the upper abdomen. 2. New bilateral lower lobe atelectasis/consolidation and small bilateral pleural effusions. Chest X-Ray 04/10/18 09:12 CONCLUSION: Bibasilar consolidation and pleural effusions. Physical Exam: GENERAL: NAD sedated int on mech vent SKIN: Warm and dry. HEAD: Atraumatic. Normocephalic. EYES: Pupils equal and round. No scleral icterus. No injection or drainage. ENT: No nasal bleeding or discharge. Mucous membranes pink and moist. NECK: Trachea midline. No JVD. CARDIOVASCULAR: Regular rate and rhythm. RESPIRATORY: No accessory muscle use. Clear to auscultation. Breath sounds equal bilaterally. GASTROINTESTINAL: Abdomen soft, no reacrion to plaption, + distended JPs in place with cloudy serosang dc Hepatic and splenic margins not palpable. MUSCULOSKELETAL: Extremities without clubbing, cyanosis, or edema. No obvious deformities. NEUROLOGICAL: sedated heavily PSYCHIATRIC: unable to assess Assessment and Plan - Plan Large paraesophageal hernia sp perforation of stomach with diffuse contamination of abdominal cavity sp emergent lap repair Acute VDRF ALVIN CAD severe sp CABG on 04/04 cont zosyn, dc fluconazol if BC remain negative fro fungual infx fu cultures alanna mondragon RN
--- NOTE | 2018-04-10 23:02 | P.PNCA ---
Subjective Interval history: No events overnight Heart rates elevated but stable around 100 Levophed at 2mcg Medications and Allergies Active Medications: Active Medications Al Hydroxide/Mg Hydroxide (Milk Of Magnalex Liq) 30 ml PO DAILY [facility] Last Admin: 04/10/18 08:48 Dose: Not Given Albuterol (Duoneb Neb (Prn)) 1 ampul NEB Q2HR NEB PRN PRN Reason: WHEEZING Albuterol (Duoneb Neb (Yash)) 1 ampul NEB Q4HR NEB [facility] Last Admin: 04/10/18 20:41 Dose: 1 ampul Aspirin (Aspirin Chew) 81 mg PO DAILY [facility] Last Admin: 04/10/18 08:48 Dose: 81 mg Bisacodyl (Dulcolax Supp) 10 mg RECTAL PRN PRN PRN Reason: SEE LABEL COMMENTS Chlorhexidine Gluconate (Peridex 0.12% Oral Kit) 15 ml OROPHARYNG BID@0800, 2000 [facility] Last Admin: 04/10/18 20:19 Dose: 15 ml Dextrose (D50w Vial) 50 ml IV.PUSH UNSCH PRN PRN Reason: PER HYPOGLYCEMIA PROTOCOL Docusate Sodium (Colace) 100 mg PO BID [facility] Last Admin: 04/10/18 20:16 Dose: 100 mg Glucagon (Glucagon Inj) 1 mg OTHER UNSCH PRN PRN Reason: for Hypoglycemia Protocol Sodium Chloride (Ns Inj) 500 mls @ 30 mls/hr IV.SIG .Q10H [facility] Last Admin: 04/04/18 06:39 Dose: Not Given Acetaminophen (Ofirmev Inj) 1,000 mg in 100 mls @ 400 mls/hr IV.SIG Q6H PRN PRN Reason: PAIN SCALE 1-10 Last Infusion: 04/07/18 18:44 Dose: Infused Phenylephrine HCl 160 mg/ (Sodium Chloride) 500 mls @ 7.5 mls/hr IV.CONT TITRATE PRN; Protocol PRN Reason: See protol Last Titration: 04/09/18 07:00 Dose: 3 mcg/min, 0.56 mls/hr Metronidazole/Sodium Chloride (Flagyl 500 Mg Inj) 100 mls @ 100 mls/hr IV.SIG Q8H [facility] Last Infusion: 04/10/18 14:00 Dose: Infused Piperacillin/Tazobactam/Dextrose (Zosyn 3.375 Gm Premix) 50 mls @ 200 mls/hr IV.SIG Q6H [facility] Last Admin: 04/10/18 20:19 Dose: 200 mls/hr Fentanyl (Fentanyl 10 Mcg/Ml Premix Drip) 2,500 mcg in 250 mls @ 5 mls/hr IV.SIG TITRATE PRN; Protocol PRN Reason: Per Protocol Last Admin: 04/10/18 16:49 Dose: 50 mcg/hr, 5 mls/hr Fluconazole (Diflucan 200 Mg Premix Bag) 100 mls @ 100 mls/hr IV.SIG Q24H [facility] Last Infusion: 04/09/18 23:55 Dose: Infused Norepinephrine Bitartrate 8 mg (/ Dextrose) 250 mls @ 3.75 mls/hr IV.CONT TITRATE PRN; Protocol PRN Reason: See Protocol Last Admin: 04/10/18 06:21 Dose: 2 mcg/min, 3.75 mls/hr Dexmedetomidine HCl 1,000 mcg/ (Sodium Chloride) 250 mls @ 4.2 mls/hr IV.CONT TITRATE PRN; Protocol PRN Reason: Per Protocol Last Admin: 04/09/18 13:24 Dose: 0.2 mcg/kg/hr, 4.2 mls/hr Dextrose/Sodium Chloride (D5w/1/2 Ns Inj) 1,000 mls @ 84 mls/hr IV.CONT .[id number] [facility] Last Admin: 04/10/18 12:30 Dose: 84 mls/hr Insulin Aspart (Novolog Insulin Correctional Sugar Inj) 0 unit SQ Q4HR [facility]; Protocol Last Admin: 04/10/18 20:21 Dose: Not Given Levothyroxine Sodium (Synthroid) 100 mcg PO DAILY@0600 [facility] Last Admin: 04/10/18 06:18 Dose: 100 mcg Miscellaneous (Pill Splitter) 1 each OTHER UNSCH PRN PRN Reason: SEE LABEL COMMENTS Miscellaneous Medication () 1 each OROPHARYNG 0000,0400,1200,1600 [facility] Last Admin: 04/10/18 18:44 Dose: 1 each Multivitamins/Minerals (Theragran-M) 1 tab PO DAILY [facility] Last Admin: 04/10/18 08:49 Dose: 1 tab Ondansetron HCl (Zofran Inj) 4 mg IV.PUSH Q6H PRN PRN Reason: NAUSEA OR VOMITING Last Admin: 04/08/18 09:29 Dose: 4 mg Pantoprazole Sodium (Protonix Inj) 40 mg IV.PUSH Q12H [facility] Last Admin: 04/10/18 12:30 Dose: 40 mg Paroxetine HCl (Paxil) 10 mg PO DAILY [facility] Last Admin: 04/10/18 08:47 Dose: 10 mg Patient's Own: ( Rosuvastatin [ Rosuvastatin] 20 Mg) 0 each PO DAILY [facility] Polyethylene Glycol (Miralax) 17 gm PO DAILY [facility] Last Admin: 04/10/18 08:48 Dose: Not Given Sennosides (Senokot) 8.6 mg PO HS [facility] Last Admin: 04/10/18 20:16 Dose: 8.6 mg Sodium Biphosphate/Sodium Phosphate (Fleets Enema (Adult)) 118 ml RECTAL UNSCH PRN PRN Reason: SEE LABEL COMMENTS Sodium Chloride (Ns Flush) 2 ml IV.FLUSH BID [facility] Last Admin: 04/10/18 20:21 Dose: 2 ml Sodium Chloride (Ns Flush) 2 ml IV.FLUSH PRN PRN PRN Reason: FLUSH AFTER USING IV ACCESS Sterile Water (Free Water) 250 ml G-TUBE Q8HR [facility] Last Admin: 04/10/18 13:31 Dose: 250 ml Terbutaline Sulfate (Brethine Inj) 1 mg SQ UNSCH PRN PRN Reason: For Extravasation Terbutaline Sulfate (Brethine Inj) 1 mg SQ UNSCH PRN PRN Reason: For Extravasation Verapamil HCl (Isoptin) 40 mg PO TID [facility] Last Admin: 04/08/18 19:20 Dose: Not Given Allergies Allergy/AdvReac Type Severity Reaction Status Date / Time atorvastatin AdvReac Hypotension Verified 04/04/18 06:21 simvastatin AdvReac Hypotension Verified 04/04/18 06:21 Home Medications Medication Instructions Recorded Confirmed Type ciprofloxacin HCl [Cipro] 500 mg PO Q12H 02/16/18 04/04/18 History coenzyme Q10 [Co Q-10] 10 mg PO TID 02/16/18 04/04/18 History furosemide 40 mg PO BID 02/16/18 04/04/18 History losartan 50 mg PO DAILY 02/16/18 04/04/18 History pantoprazole 40 mg PO DAILY 02/16/18 04/04/18 History paroxetine HCl 10 mg PO DAILY 02/16/18 04/04/18 History potassium chloride [K-Tab] 10 meq PO DAILY 02/16/18 04/04/18 History ranitidine HCl 150 mg PO BID 02/16/18 04/04/18 History rosuvastatin 20 mg PO DAILY 02/16/18 04/04/18 History verapamil 180 mg PO DAILY 02/16/18 04/04/18 History warfarin 5 mg PO DAILY 02/16/18 04/04/18 History aspirin 81 mg PO DAILY 03/09/18 04/04/18 History nitroglycerin 0.4 mg SUBLINGUAL Q5-15M PRN 03/09/18 04/04/18 History Physical Exam Vital signs: Vital Signs 04/09/18 23:57 04/10/18 00:00 04/10/18 03:41 Temperature 100.1 F H Pulse Rate 116 H 120 H 100 H Respiratory Rate 16 16 16 Blood Pressure 120/63 Pulse Oximetry 98 97 98 04/10/18 04:00 04/10/18 07:00 04/10/18 08:00 Temperature 100.4 F H 100.4 F H Pulse Rate 95 H 108 H 107 H Respiratory Rate 16 16 Blood Pressure 120/72 117/63 117/63 Pulse Oximetry 98 98 04/10/18 08:16 04/10/18 08:20 04/10/18 11:00 Temperature 99.9 F H Pulse Rate 107 H 109 H Respiratory Rate 16 16 16 Blood Pressure 125/62 Pulse Oximetry 99 98 04/10/18 11:57 04/10/18 11:58 04/10/18 15:00 Temperature 98.9 F Pulse Rate 109 H 108 H Respiratory Rate 16 16 16 Blood Pressure 113/55 L Pulse Oximetry 99 98 04/10/18 16:46 04/10/18 20:41 Temperature Pulse Rate 91 H 94 H Respiratory Rate 16 16 Blood Pressure Pulse Oximetry 97 97 Intake & Output 04/10/18 04/10/18 04/11/18 06:59 18:59 06:59 Intake Total 1650 / 1650 950 / 950 Output Total 595 / 595 600 / 600 Balance 1055 / 1055 350 / 350 Weight 92.5 kg Intake: IV 1400 / 1400 450 / 450 D5W/LR Inj 1,000 ML @ 84 mls/hr 1000 / 1000 IV.CONT .[id number] [facility] Rx#: [id number] Diflucan 200 mg Premix Bag 100 100 / 100 ML @ 100 mls/hr IV.SIG Q24H [facility] Rx#:[id number] Zosyn 3.375 GM Premix 50 ML @ 100 / 100 100 / 100 200 mls/hr IV.SIG Q6H [facility] Rx#: [id number] fentaNYL 10 mcg/mL Premix Drip 250 / 250 2,500 mcg In 250 ml @ 50 MCG/HR 5 mls/hr IV.SIG TITRATE PRN Rx #:[id number] Flagyl 500 MG Inj 100 ML @ 100 200 / 200 100 / 100 mls/hr IV.SIG Q8H [facility] Rx#: [id number] Oral 0 / 0 0 / 0 Other 250 / 250 500 / 500 Output: Urine Amount (Catheter) 555 / 555 545 / 545 Indwelling Urethral Catheter 555 / 555 545 / 545 Gastric Drainage 0 / 0 25 / 25 Right Nare Nasogastric Tube 0 / 0 25 / 25 Wound Drainage 40 / 40 30 / 30 # 1 Right Anterior Abdomen 10 / 15 / 15 # 2 Left Anterior Abdomen 30 / 30 15 / 15 Other: # Bowel Movements 0 0 Narrative: GENERAL: NAD, stable SKIN: Warm and dry. HEAD: Atraumatic. Normocephalic. EYES: Pupils equal and round. No scleral icterus. No injection or drainage. ENT: No nasal bleeding or discharge. Mucous membranes pink and moist. NECK: Trachea midline. No JVD. CARDIOVASCULAR: Irregularly irregular RESPIRATORY: No accessory muscle use. Decreased breath sounds bilaterally GASTROINTESTINAL: Abdomen soft, non-tender, nondistended. Hepatic and splenic margins not palpable. OANH drains in place with maroon fluid MUSCULOSKELETAL: Extremities without clubbing, cyanosis, or edema. No obvious deformities. NEUROLOGICAL: Intubated and sedated - Urinary Catheter Management Indwelling Temp Sensing Catheter Cath placed during this visit: yes Urethral indwelling: No Reason for continuing: Hourly intake/output Insertion date: 04/04/18 Insertion time: 07:52 Indwelling Urethral Catheter Cath placed during this visit: yes Reason for continuing: Hourly intake/output Insertion date: 04/08/18 Insertion time: 16:51 Results 04/10/18 05:00 04/10/18 05:00 Cardiac Enzymes 04/09/18 04/10/18 Range/Units 05:30 05:00 AST 710 H 473 H (15-37) U/L Coagulation 04/08/18 04/09/18 04/10/18 Range/Units 22:30 05:30 05:00 PT 17.6 H 19.3 H 15.5 H (9.8-11.6) sec APTT 31.3 (23.4-31.7) sec CBC 04/09/18 04/10/18 Range/Units 05:30 05:00 WBC 5.1 11.3 H D (4.0-11.0) th/mm3 RBC 3.10 L 3.18 L (4.00-5.30) mil/mm3 Hgb 9.6 L D 9.4 L (11.6-15.3) gm/dL Hct 26.8 L 28.3 L (35.0-46.0) % Plt Count 219 242 (150-450) th/mm3 Neut # (Auto) 4.0 9.8 H (1.8-7.7) th/mm3 Lymph # (Auto) 0.6 L 0.8 L (1.0-4.8) th/mm3 [place] # (Auto) 0.5 0.7 (0.0-0.9) th/mm3 Eos # (Auto) 0.0 0.0 (0.0-0.4) th/mm3 Baso # (Auto) 0.0 0.0 (0.0-0.2) th/mm3 Comprehensive Metabolic Panel 04/09/18 04/10/18 Range/Units 05:30 05:00 Sodium 146 H 149 H (136-145) meq/L Potassium 3.8 3.4 L (3.5-5.1) meq/L Chloride 111 H 115 H (98-107) meq/L Carbon Dioxide 25.1 26.0 (21.0-32.0) meq/L BUN 72 H 50 H (7-18) mg/dL Creatinine 1.99 H 1.40 H (0.50-1.00) mg/dL Calcium 8.2 L 7.8 L (8.5-10.1) mg/dL AST 710 H 473 H (15-37) U/L ALT 261 H 212 H (10-53) U/L Alkaline Phosphatase 44 L 49 (45-117) U/L Total Protein 5.1 L 4.9 L (6.4-8.2) g/dL Albumin 2.4 L 1.7 L D (3.4-5.0) g/dL Intake and Output 04/10/18 04/10/18 04/11/18 14:59 22:59 06:59 Intake Total 150 / 150 800 / 800 Output Total 600 / 600 Balance 150 / 150 200 / 200 Intake: IV 150 / 150 300 / 300 Zosyn 3.375 GM Premix 50 ML @ 50 / 50 50 / 50 200 mls/hr IV.SIG Q6H [facility] Rx#: [id number] fentaNYL 10 mcg/mL Premix Drip 250 / 250 2,500 mcg In 250 ml @ 50 MCG/HR 5 mls/hr IV.SIG TITRATE PRN Rx #:[id number] Flagyl 500 MG Inj 100 ML @ 100 100 / 100 mls/hr IV.SIG Q8H [facility] Rx#: [id number] Oral 0 / 0 Other 500 / 500 Output: Urine Amount (Catheter) 545 / 545 Indwelling Urethral Catheter 545 / 545 Gastric Drainage 25 / 25 Right Nare Nasogastric Tube 25 / 25 Wound Drainage 30 / 30 # 1 Right Anterior Abdomen 15 / 15 # 2 Left Anterior Abdomen 15 / 15 Other: # Bowel Movements 0 - Imaging and Cardiology Imaging: Impressions Chest X-Ray 04/10/18 09:12 CONCLUSION: Bibasilar consolidation and pleural effusions. Assessment and Plan - Assessment (1) Severe aortic stenosis Code(s): I35.0 - Nonrheumatic aortic (valve) stenosis Status: Chronic (2) Coronary artery disease involving mi'kmaq coronary artery Code(s): I25.10 - Atherosclerotic heart disease of mi'kmaq coronary artery without angina pectoris Status: Acute (3) Congestive heart failure (CHF) Code(s): I50.9 - Heart failure, unspecified Status: Chronic (4) Atrial fibrillation Code(s): I48.91 - Unspecified atrial fibrillation Status: Chronic (5) S/P CABG (coronary artery bypass graft) Code(s): Z95.1 - Presence of aortocoronary bypass graft Status: Acute - Plan 1) CAD s/p CABGx2 2) Residual Possible TAVR in the future Not a BAV candidate at this time with at least moderate AR 3) AFib Cardioverted before abdominal surgery Back in AFib overnight but heart rates stable Will need to be back on anticoagulation at some point Will see if stable tomorrow then heparin drip, and Coumadin once ok with surgery Will have to see how she does hemodynamically going further, might need to cardiovert again, stable for now 4) Gastric ulcer/perfs Per surgery
[2018-04-11] MEDS: Insulin NovoLOG Aspart Correctional Sugar Inj SQ SCH ×7 (05:18→23:32)
[2018-04-11 05:27] LABS: Baso % (Auto) 0.1 % (0.0-2.0); Eos # (Auto) 0.2 th/mm3 (0.0-0.4); Eos % (Auto) 0.9 % (0.0-4.0); Hematocrit 26.2 % (35.0-46.0); Hemoglobin 8.9 gm/dL (11.6-15.3); Lymph # (Auto) 0.8 th/mm3 (1.0-4.8); Lymph % (Auto) 4.2 % (9.0-44.0); Mean Corpuscular HGB Conc 34.1 % (32.0-36.0); Mean Platelet Volume 8.3 fL (7.0-11.0); Mono # (Auto) 1.4 th/mm3 (0.0-0.9); Mono % (Auto) 6.9 % (0.0-8.0); Neut # (Auto) 17.8 th/mm3 (1.8-7.7); Neut % (Auto) 87.9 % (16.0-70.0); Platelet Count 231 th/mm3 (150-450); Red Blood Count 2.98 mil/mm3 (4.00-5.30); White Blood Count 20.2 th/mm3 (4.0-11.0)
[2018-04-11 05:35] LABS: INR 1.5 Ratio; Prothrombin Time 15.1 sec (9.8-11.6)
[2018-04-11] MEDS: Piperacil/Tazo 3.375 GM Premix 50 ML IV.SIG SCH ×4 (05:44→21:22)
[2018-04-11] MEDS: Oral Hygiene Kit OROPHARYNG SCH ×4 (05:44→23:32)
[2018-04-11] MEDS: Levothyroxine 100 MCG Tablet PO SCH (05:45)
[2018-04-11 05:53] LABS: Albumin 1.6 g/dL (3.4-5.0); Calcium 7.4 mg/dL (8.5-10.1); Carbon Dioxide 24.2 meq/L (21.0-32.0); Magnesium 2.7 mg/dL (1.5-2.5); Phosphorus 3.5 mg/dL (2.5-4.9); Potassium 3.2 meq/L (3.5-5.1); Total Protein 4.7 g/dL (6.4-8.2)
[2018-04-11 08:18] LABS: Eosinophils 1 % (0-4); Lymphocytes 2 % (9-44); Metamyelocytes 1 % (0-1); Monocytes 2 % (0-8); Platelet Estimate Normal (Normal); Platelet Morphology Normal (Normal)
[2018-04-11] MEDS: Multivitamin/Minerals Therapeutic Tablet PO SCH (08:44)
[2018-04-11] MEDS: Docusate Sodium 100 MG Capsule PO SCH ×2 (08:44→21:21)
[2018-04-11] MEDS: Polyethylene Glycol 3350 17 GM Packet PO SCH (08:46)
[2018-04-11] MEDS: Chlorhexidine 0.12% Oral Kit 15 ML UDC OROPHARYNG SCH ×2 (08:46→21:20)
[2018-04-11] MEDS ORDERED: Potassium Phosphate Inj 30 MMOL in Sodium Chlor 0.9% Inj 250 ML IV.SIG PRN (09:24)
[2018-04-11] MEDS ORDERED: Magnesium Sulfate Inj 4 GM in Sodium Chlor 0.9% Inj 92 ML IV.SIG PRN (09:24)
[2018-04-11] MEDS ORDERED: Sodium Phosphate Inj 30 MMOL in Sodium Chlor 0.9% Inj 250 ML IV.SIG PRN (09:24)
[2018-04-11] MEDS ORDERED: Potassium Chloride 25 MEQ Effervescent Tablet PO PRN (09:24)
[2018-04-11] MEDS ORDERED: Magnesium Oxide 400 MG Tablet PO PRN (09:24)
[2018-04-11] MEDS ORDERED: Magnesium Sulfate Inj 2 GM in Sodium Chlor 0.9% Inj 96 ML IV.SIG PRN (09:24)
[2018-04-11] MEDS ORDERED: Potassium Phosphate 500 MG Soluble Tablet PO PRN ×2 (09:24)
[2018-04-11] MEDS ORDERED: Potassium Chlor 40 mEq Premix 40 MEQ/100 ML PIGGYBACK IV.SIG PRN ×2 (09:24)
--- NOTE | 2018-04-11 09:29 | P.PNCC ---
Subjective Subjective Remarks/Hospital Course: This is a 77-year-old female. Date of admission 04/04/2018. Date of consultation 04/06/2018. Patient has no history of aortic stenosis, coronary disease, hypertension, hyperlipidemia, gastroesophageal reflux disease, hypothyroidism and depression. On 04/04, patient had a two-vessel CABG ZAPATA to LAD, reverse saphenous vein graft to OM of left circumflex with left EVH and CLARA excision. Without complications. Today, patient this morning was in atrial fibrillation with rapid ventricular response. Received 150 mg IV amiodarone and started on oral amiodarone 400 mg along with 25 mg of oral metoprolol tartrate.. She became bradycardic this afternoon and we are asked to evaluate the patient. She is received 2 g of calcium chloride and is currently been started on dopamine drip. Her heart rate and blood pressure immediately improved after the infusion of calcium chloride. In reviewing laboratories, potassium magnesium are within normal limits. She does have a new leukocytosis of 19,000. She denies shortness of breath. She is more confused likely due to hypoperfusion 04/07 Patient is lying in bed in NAD. Feeling nauseas, denies any abdominal pain. 04/08 Patient was given Lopressor, Cardizem and Digoxin overnight for tachycardic became hypotensive and started on Neosyn ( current MAP 81mmHg). Renal function worse today with Cr: 2.22 from 1.76 04/09 Patient s/p Laparoscopic partial reduction of paraesophageal hernia and wedge resection of greater curvature of stomach. Remains intubated postop on Levophed 3 mics, sedated with Fentanyl and on is Precedex drip. s/p [id number] PRBC overnight Hgb 9.6 this morning from 6.8 04/10 Patient remains intubated and sedated. On Levophed 2 mics. :100.4 at 4am, renal function is improving with Cr: 1.40 from 1.99 04/11 Patient remains intubated off Levophed. On Fentanyl infusion for sedation. Renal function is improving with Cr:1.18 from 1.4. Afebrile. Objective Vital Signs / I&O: Vital Signs 04/10/18 11:00 04/10/18 11:57 04/10/18 11:58 Temperature 99.9 F H Pulse Rate 109 H 109 H Respiratory Rate 16 16 16 Blood Pressure 125/62 Pulse Oximetry 98 99 04/10/18 15:00 04/10/18 16:46 04/10/18 19:00 Temperature 98.9 F 99.5 F Pulse Rate 108 H 91 H 92 H Respiratory Rate 16 16 16 Blood Pressure 113/55 L 105/47 L Pulse Oximetry 98 97 97 04/10/18 20:41 04/10/18 23:00 04/11/18 00:37 Temperature 99.6 F Pulse Rate 94 H 113 H Respiratory Rate 16 16 16 Blood Pressure 106/57 L Pulse Oximetry 97 97 97 04/11/18 03:00 04/11/18 05:18 04/11/18 07:00 Temperature 98.9 F 99.0 F Pulse Rate 118 H 118 H 105 H Respiratory Rate 16 16 16 Blood Pressure 120/53 L 112/51 L Pulse Oximetry 97 98 98 04/11/18 09:13 04/11/18 09:14 Temperature Pulse Rate 107 H Respiratory Rate 16 16 Blood Pressure Pulse Oximetry 98 Intake & Output 04/10/18 04/11/18 04/11/18 18:59 06:59 18:59 Intake Total 950 / 950 1900 / 1900 Output Total 600 / 600 495 / 495 Balance 350 / 350 1405 / 1405 Weight 95 kg Intake: IV 450 / 450 1400 / 1400 D5W/1/2 NS Inj 1,000 ML @ 84 1000 / 1000 mls/hr IV.CONT .[id number] [facility] Rx# :[id number] Diflucan 200 mg Premix Bag 100 100 / 100 ML @ 100 mls/hr IV.SIG Q24H [facility] Rx#:[id number] Zosyn 3.375 GM Premix 50 ML @ 100 / 100 100 / 100 200 mls/hr IV.SIG Q6H [facility] Rx#: [id number] fentaNYL 10 mcg/mL Premix Drip 250 / 250 2,500 mcg In 250 ml @ 50 MCG/HR 5 mls/hr IV.SIG TITRATE PRN Rx #:[id number] Flagyl 500 MG Inj 100 ML @ 100 100 / 100 200 / 200 mls/hr IV.SIG Q8H [facility] Rx#: [id number] Oral 0 / 0 Other 500 / 500 500 / 500 Output: Urine Amount (Catheter) 545 / 545 450 / 450 Indwelling Urethral Catheter 545 / 545 450 / 450 Gastric Drainage 25 / 25 Right Nare Nasogastric Tube Wound Drainage 45 / 45 # 1 Right Anterior Abdomen # 2 Left Anterior Abdomen Other: # Bowel Movements 0 0 Result Diagrams: 04/11/18 04:35 04/11/18 04:35 Other Results: Laboratory Results - last 12 hr 04/08/18 04/10/18 04/11/18 17:24 23:39 04:35 WBC 20.2 H D RBC 2.98 L Hgb 8.9 L Hct 26.2 L MCV 88.0 MCH 30.0 MCHC 34.1 RDW 16.0 Plt Count 231 MPV 8.3 Prelim Diff (Auto) Slide review pending Neut % (Auto) 87.9 H Lymph % (Auto) 4.2 L Carlton % (Auto) 6.9 Eos % (Auto) 0.9 Baso % (Auto) 0.1 Neut # (Auto) 17.8 H Lymph # (Auto) 0.8 L [place] # (Auto) 1.4 H Eos # (Auto) 0.2 Baso # (Auto) 0.0 WBC Differential Manual diff final Seg Neuts % (Manual) 87 H Band Neuts % (Manual) 7 H Lymphocytes % (Manual) 2 L Monocytes % (Manual) 2 Eosinophils % (Manual) 1 Metamyelocytes % (Man) 1 Abs Neuts (Manual) 19.2 H Differential Comment . Platelet Estimate Normal Platelet Morphology Normal PT INR Sodium Potassium Chloride Carbon Dioxide Anion Gap BUN Creatinine Estimated GFR POC Glucose 104 Random Glucose Calcium Prot Corrected Calcium Phosphorus Magnesium Total Bilirubin AST ALT Alkaline Phosphatase Total Protein Albumin MTS Gel Crossmatch See Detail 04/11/18 04/11/18 04:35 04:35 WBC RBC Hgb Hct MCV MCH MCHC RDW Plt Count MPV Prelim Diff (Auto) Neut % (Auto) Lymph % (Auto) Carlton % (Auto) Eos % (Auto) Baso % (Auto) Neut # (Auto) Lymph # (Auto) Carlton # (Auto) Eos # (Auto) Baso # (Auto) WBC Differential Seg Neuts % (Manual) Band Neuts % (Manual) Lymphocytes % (Manual) Monocytes % (Manual) Eosinophils % (Manual) Metamyelocytes % (Man) Abs Neuts (Manual) Differential Comment Platelet Estimate Platelet Morphology PT 15.1 H INR 1.5 Sodium 148 H Potassium 3.2 L Chloride 114 H Carbon Dioxide 24.2 Anion Gap 10 BUN 40 H Creatinine 1.18 H Estimated GFR 44 L POC Glucose Random Glucose 103 Calcium 7.4 L* Prot Corrected Calcium 8.8 Phosphorus 3.5 Magnesium 2.7 H Total Bilirubin 0.7 AST 279 H ALT 161 H Alkaline Phosphatase 76 Total Protein 4.7 L Albumin 1.6 L MTS Gel Crossmatch Imaging: Abdomen X-Ray 04/07/18 00:00 CONCLUSION: Nonspecific bowel gas pattern with scattered small and large bowel gas. Abdomen/Bladder Ultrasound 04/08/18 00:00 CONCLUSION: Kidneys within normal limits. Right pleural effusion noted. Abdomen/Pelvis CT 04/08/18 10:09 CONCLUSION: 1. Prominent amount of free air and free fluid in the upper abdomen and within a large hiatal hernia. A large portion of the stomach is in a hiatal hernia. Most likely etiology for the findings is a perforated gastric ulcer. Findings discussed with the patient's nurse. 2. Distended gallbladder. Chest CT 04/08/18 10:09 CONCLUSION: 1. Large hiatal hernia containing a large portion of the stomach with moderate amount of free air in the hiatal hernia and in the upper abdomen. Distal gastric wall thickening and extraluminal fluid adjacent to the distal stomach. Most likely etiology for the findings is a perforated gastric ulcer. Free fluid is also seen in the upper abdomen. 2. New bilateral lower lobe atelectasis/consolidation and small bilateral pleural effusions. Chest X-Ray 04/10/18 09:12 CONCLUSION: Bibasilar consolidation and pleural effusions. Objective Remarks: GENERAL: Patient is 77 yo lying in bed intubated and sedated SKIN: Warm and dry. HEAD: Normocephalic. EYES: No scleral icterus. No injection or drainage. NECK: Supple, trachea midline. No JVD or lymphadenopathy. CARDIOVASCULAR: Tachycardic without murmurs, gallops, or rubs. RESPIRATORY: Breath sounds equal bilaterally. No accessory muscle use. GASTROINTESTINAL: Abdomen soft, non-tender, nondistended. MUSCULOSKELETAL: No cyanosis, or edema. Neuro: Sedated Assessment and Plan - Assessment and Plan Plan: Neuro/Psych: Depressive disorder NOS History of TIA On Fentanyl infusion for sedation and analgesia. Daily sedation vacation Currently on paroxetine 10 mg daily for depression. CV: Postoperative CABG x2 ZAPATA to LAD, reverse saphenous vein graft to OM with left EVH and CLARA excision -Dr. Warner Atrial fibrillation Essential hypertension by history Hyperlipidemia Coronary artery disease status post PTCA left anterior descending proximal Off Levophed monitor HR and BP keep MAP>65mmHG Lactic acid 2.0 Cardiac catheterization 417 revealed left ear 0.48 cm area. EF 55-60%. Moderate aortic regurgitation. On rosuvastatin 10 mg daily at home. Noted allergies to atorvastatin simvastatin Continue aspirin 81 mg daily Cards is following- Dr. Valle Resp: Obstructive sleep apnea Continue with vent support keep sats> 92% Bronchodilators, ICU vent bundle. SBT daily as jose Check US chest might need right sided thoracentesis. GI: s/p Laparoscopic partial reduction of paraesophageal hernia, wedge resection of greater curvature of stomach 04/08 Diverticulosis Gastroesophageal reflux disease Hiatal hernia Pantoprazole for GI prophylaxis Docusate sodium/senna 1 tablet twice daily for hours along with polythene glycol 17 g daily KUB abdomen 04/07 : Nonspecific bowel gas pattern with scattered small and large bowel gas. 04/08 CT abd/pelvis- Prominent amount of free air and free fluid in the upper abdomen and within a large hiatal hernia. A large portion of the stomach is in a hiatal hernia. Most likely etiology for the findings is a perforated gastric ulcer. 04/08 s/p Laparoscopic partial reduction of paraesophageal hernia, wedge resection of greater curvature of stomach, washout, drain placement performed. Monitor OANH drainage- Surgery- Dr. Craig. Endo: Hypothyroidism Currently on levothyroxine 100 mcg p.o. daily TSH:0.72 Sliding scale insulin with aspart insulin Renal: Acute kidney injury Monitor renal function, I/O's, electrolytes replacement per protocol Renal function is improving with Cr:1.18 from 1.40 f . Renal is following- Dr. Holliday Increase Free water 250ml Q6, d/c IVF and diurese with Lasix 40mg x1 Renal US: No hydronephrosis Heme: Leukocytosis Normocytic anemia Chronic warfarin use Monitor CBC, Coags daily. s/p 4uFFP and Vitamin K 5mgx1 for OR 04/08 INR 1.5 today s/p transfusion 2u PRBC overnight 04/09- ID: On empiric abx ( Zosyn, Diflucan) Monitor for signs of infections ( fever, WBC) Follow up BC 11/3: NGTD ID is following MSK: Elevated BMI Osteoporosis/osteoarthritis Lumbar radiculopathy Physical therapy evaluate and treat Access -Utilize peripheral IV. d/c Central line left subclavian cordis with dual- lumen placed 04/04 Prophylaxis -GI -pantoprazole -DVT-SCD/pharmacological prophylaxis- off Coumadin- INR 1.5 today Start Heparin Sq- cleared by Gen surgery and CTS. CCT 35 mins
--- NOTE | 2018-04-11 09:30 | P.PNNP ---
Subjective Interval history: s/p CABG and Gastric surgery Physical Exam Vital signs: Vital Signs 04/10/18 11:00 04/10/18 11:57 04/10/18 11:58 Temperature 99.9 F H Pulse Rate 109 H 109 H Respiratory Rate 16 16 16 Blood Pressure 125/62 Pulse Oximetry 98 99 04/10/18 15:00 04/10/18 16:46 04/10/18 19:00 Temperature 98.9 F 99.5 F Pulse Rate 108 H 91 H 92 H Respiratory Rate 16 16 16 Blood Pressure 113/55 L 105/47 L Pulse Oximetry 98 97 97 04/10/18 20:41 04/10/18 23:00 04/11/18 00:37 Temperature 99.6 F Pulse Rate 94 H 113 H Respiratory Rate 16 16 16 Blood Pressure 106/57 L Pulse Oximetry 97 97 97 04/11/18 03:00 04/11/18 05:18 04/11/18 07:00 Temperature 98.9 F 99.0 F Pulse Rate 118 H 118 H 105 H Respiratory Rate 16 16 16 Blood Pressure 120/53 L 112/51 L Pulse Oximetry 97 98 98 04/11/18 09:13 04/11/18 09:14 Temperature Pulse Rate 107 H Respiratory Rate 16 16 Blood Pressure Pulse Oximetry 98 Intake & Output 04/10/18 04/11/18 04/11/18 18:59 06:59 18:59 Intake Total 950 / 950 1900 / 1900 Output Total 600 / 600 495 / 495 Balance 350 / 350 1405 / 1405 Weight 95 kg Intake: IV 450 / 450 1400 / 1400 D5W/1/2 NS Inj 1,000 ML @ 84 1000 / 1000 mls/hr IV.CONT .[id number] YASH Rx# :[id number] Diflucan 200 mg Premix Bag 100 100 / 100 ML @ 100 mls/hr IV.SIG Q24H YASH Rx#:[id number] Zosyn 3.375 GM Premix 50 ML @ 100 / 100 100 / 100 200 mls/hr IV.SIG Q6H YASH Rx#: [id number] fentaNYL 10 mcg/mL Premix Drip 250 / 250 2,500 mcg In 250 ml @ 50 MCG/HR 5 mls/hr IV.SIG TITRATE PRN Rx #:[id number] Flagyl 500 MG Inj 100 ML @ 100 100 / 100 200 / 200 mls/hr IV.SIG Q8H YASH Rx#: [id number] Oral 0 / 0 Other 500 / 500 500 / 500 Output: Urine Amount (Catheter) 545 / 545 450 / 450 Indwelling Urethral Catheter 545 / 545 450 / 450 Gastric Drainage 25 / 25 Right Nare Nasogastric Tube 25 / 25 Wound Drainage 30 / 30 45 / 45 # 1 Right Anterior Abdomen 15 / 15 30 / 30 # 2 Left Anterior Abdomen 15 15 / 15 Other: # Bowel Movements 0 0 Narrative: GENERAL: NAD, stable SKIN: Warm and dry. HEAD: Atraumatic. Normocephalic. EYES: Pupils equal and round. No scleral icterus. No injection or drainage. ENT: No nasal bleeding or discharge. Mucous membranes pink and moist. NECK: Trachea midline. No JVD. CARDIOVASCULAR: Irregularly irregular RESPIRATORY: No accessory muscle use. Decreased breath sounds bilaterally GASTROINTESTINAL: Abdomen soft, non-tender, nondistended. Hepatic and splenic margins not palpable. ONAH drains in place with maroon fluid MUSCULOSKELETAL: Extremities without clubbing, cyanosis, or edema. No obvious deformities. NEUROLOGICAL: Intubated and sedated - Urinary Catheter Management Indwelling Temp Sensing Catheter Cath placed during this visit: yes Urethral indwelling: No Reason for continuing: Hourly intake/output Insertion date: 04/04/18 Insertion time: 07:52 Indwelling Urethral Catheter Cath placed during this visit: yes Reason for continuing: Hourly intake/output Insertion date: 04/08/18 Insertion time: 16:51 Assessment and Plan - Assessment (1) Acute renal failure Code(s): N17.9 - Acute kidney failure, unspecified Status: Acute (2) Atrial fibrillation Code(s): I48.91 - Unspecified atrial fibrillation Status: Chronic (3) S/P CABG (coronary artery bypass graft) Code(s): Z95.1 - Presence of aortocoronary bypass graft Status: Acute (4) Pneumoperitoneum Code(s): K66.8 - Other specified disorders of peritoneum Status: Acute (5) Paraesophageal hernia Code(s): K44.9 - Diaphragmatic hernia without obstruction or gangrene Status: Acute - Plan Patient had emergent laparoscopic surgery for gastric perforation or perforated ulcer Keep her well-hydrated Avoid nephrotoxic agent Follow BMP Follow urine output And avoid dye studies Continue to monitor Cr 1.18 Na better K low replace will follow as needed
--- NOTE | 2018-04-11 11:34 | US ---
EXAM DATE: 04/11/2018 11:28 AM EST AGE/SEX: 77 years / Female INDICATIONS: Shortness of breath. CLINICAL DATA: This is the patient's initial encounter. Patient reports that signs and symptoms have been present for 2 months and indicates a pain score of 0/10. MEDICAL/SURGICAL HISTORY: Hypertension. Hypothyroidism. Transient ischemic attack. Afib. Aor tic stenosis. CAD. CHF. Hyperlipidemia. Myocardial infarct. Sleep apnea. Mitral regurgitation. Intuba yann. CABG. Cardiac catheterization. COMPARISON: No prior exams available for comparison. MEASUREMENTS: Skin To Parietal Pleura:__2.4 cm Skin To Max Safe Depth:__3.5 cm Estimated Fluid Volume:__697 cc Fluid Composition:__simple FINDINGS: Pleural effusion as above. CONCLUSION: 1. Right pleural effusion marked on the skin. Electronically signed by: Alli Ghosh MD 04/11/2018 11:33 AM EST
--- NOTE | 2018-04-11 11:36 | US ---
EXAM DATE: 04/11/2018 11:30 AM EST AGE/SEX: 77 years / Female INDICATIONS: Shortness of breath. CLINICAL DATA: This is the patient's initial encounter. Patient reports that signs and symptoms have been present for 2 months and indicates a pain score of 0/10. MEDICAL/SURGICAL HISTORY: Hypertension. Hypothyroidism. Transient ischemic attack. Afib. Aor tic stenosis. CAD. CHF. Hyperlipidemia. Myocardial infarct. Sleep apnea. Mitral regurgitation. Intuba yann. CABG. Cardiac catherization. COMPARISON: No prior exams available for comparison. MEASUREMENTS: Skin To Parietal Pleura:__2.2 cm Skin To Max Safe Depth:__3.0 cm Estimated Fluid Volume:__388 cc Fluid Composition:__simple FINDINGS: Pleural effusion as above. CONCLUSION: 1. Left pleural effusion and marked on the skin. Electronically signed by: Alli Ghosh MD 04/11/2018 11:35 AM EST
[2018-04-11] MEDS: Pantoprazole Inj 40 MG Vial IV.PUSH SCH ×2 (11:52→23:31)
--- NOTE | 2018-04-11 12:12 | P.PNID ---
Subjective Remarks: WBC went to 20K denies abd pain off pressors on vent Antibiotics: fluconazol zosyn Allergies/Adverse Reactions: Allergies atorvastatin Adverse Reaction (Verified 04/04/18 06:21) Hypotension simvastatin Adverse Reaction (Verified 04/04/18 06:21) Hypotension Objective Vital Signs 04/10/18 11:57 04/10/18 11:58 04/10/18 15:00 Temperature 98.9 F Pulse Rate 109 H 108 H Respiratory Rate 16 16 16 Blood Pressure 113/55 L Pulse Oximetry 99 98 04/10/18 16:46 04/10/18 19:00 04/10/18 20:41 Temperature 99.5 F Pulse Rate 91 H 92 H 94 H Respiratory Rate 16 16 16 Blood Pressure 105/47 L Pulse Oximetry 97 97 97 04/10/18 23:00 04/11/18 00:37 04/11/18 03:00 Temperature 99.6 F 98.9 F Pulse Rate 113 H 118 H Respiratory Rate 16 16 16 Blood Pressure 106/57 L 120/53 L Pulse Oximetry 97 97 97 04/11/18 05:18 04/11/18 07:00 04/11/18 09:13 Temperature 99.0 F Pulse Rate 118 H 105 H 107 H Respiratory Rate 16 16 16 Blood Pressure 112/51 L Pulse Oximetry 98 98 04/11/18 09:14 04/11/18 11:00 Temperature 98.7 F Pulse Rate 138 H Respiratory Rate 16 16 Blood Pressure 117/65 Pulse Oximetry 98 98 Intake & Output 04/10/18 04/11/18 04/11/18 18:59 06:59 18:59 Intake Total 950 / 950 1900 / 1900 Output Total 600 / 600 495 / 495 Balance 350 / 350 1405 / 1405 Weight 95 kg Intake: IV 450 / 450 1400 / 1400 D5W/1/2 NS Inj 1,000 ML @ 84 1000 / 1000 mls/hr IV.CONT .[id number] YASH Rx# :[id number] Diflucan 200 mg Premix Bag 100 100 / 100 ML @ 100 mls/hr IV.SIG Q24H YASH Rx#:[id number] Zosyn 3.375 GM Premix 50 ML @ 100 / 100 100 / 100 200 mls/hr IV.SIG Q6H YASH Rx#: [id number] fentaNYL 10 mcg/mL Premix Drip 250 / 250 2,500 mcg In 250 ml @ 50 MCG/HR 5 mls/hr IV.SIG TITRATE PRN Rx #:[id number] Flagyl 500 MG Inj 100 ML @ 100 100 / 100 200 / 200 mls/hr IV.SIG Q8H YASH Rx#: [id number] Oral 0 / 0 Other 500 / 500 500 / 500 Output: Urine Amount (Catheter) 545 / 545 450 / 450 Indwelling Urethral Catheter 545 / 545 450 / 450 Gastric Drainage / Right Nare Nasogastric Tube Wound Drainage 45 / 45 # 1 Right Anterior Abdomen 15 # 2 Left Anterior Abdomen Other: # Bowel Movements 0 0 04/08/18 14:33 Blood - Peripheral Aerobic Blood Culture - Preliminary No growth in 3 days 04/08/18 14:33 Blood - Peripheral Anaerobic Blood Culture - Preliminary No growth in 3 days 04/08/18 14:40 Blood - Peripheral Aerobic Blood Culture - Preliminary No growth in 3 days 04/08/18 14:40 Blood - Peripheral Anaerobic Blood Culture - Preliminary No growth in 3 days Lab - Hematology Results 04/10/18 04/11/18 05:00 04:35 WBC 11.3 H D 20.2 H D RBC 3.18 L 2.98 L Hgb 9.4 L 8.9 L Hct 28.3 L 26.2 L MCV 88.8 88.0 MCH 29.5 30.0 MCHC 33.2 34.1 RDW 16.4 16.0 Plt Count 242 231 MPV 8.2 8.3 Prelim Diff (Auto) Slide review pending Slide review pending Neut % (Auto) 86.1 H 87.9 H Lymph % (Auto) 7.0 L 4.2 L [place] % (Auto) 6.4 6.9 Eos % (Auto) 0.4 0.9 Baso % (Auto) 0.1 0.1 Neut # (Auto) 9.8 H 17.8 H Lymph # (Auto) 0.8 L 0.8 L [place] # (Auto) 0.7 1.4 H Eos # (Auto) 0.0 0.2 Baso # (Auto) 0.0 0.0 WBC Differential Manual diff final Manual diff final Seg Neuts % (Manual) 58 87 H Band Neuts % (Manual) 29 H 7 H Lymphocytes % (Manual) 4 L 2 L Monocytes % (Manual) 7 2 Eosinophils % (Manual) 1 1 Metamyelocytes % (Man) 1 Myelocytes % (Man) 1 H Abs Neuts (Manual) 9.9 H 19.2 H Nucleated RBCs/100 WBC 2 H Differential Comment . . Toxic Granulation 1+ H Platelet Estimate Normal Normal Platelet Morphology Normal Normal Lab - Chemistry Results 04/06/18 04/09/18 04/09/18 11:51 12:19 17:10 Sodium Potassium Chloride Carbon Dioxide Anion Gap BUN Creatinine Estimated GFR POC Glucose 124 H 94 92 Random Glucose Calcium Prot Corrected Calcium Phosphorus Magnesium Total Bilirubin AST ALT Alkaline Phosphatase Total Protein Albumin 04/09/18 04/10/18 04/10/18 21:26 01:02 05:00 Sodium 149 H Potassium 3.4 L Chloride 115 H Carbon Dioxide 26.0 Anion Gap 8 BUN 50 H Creatinine 1.40 H Estimated GFR 36 L POC Glucose 88 92 Random Glucose 90 Calcium 7.8 L Prot Corrected Calcium Phosphorus 3.2 D Magnesium 2.7 H Total Bilirubin 0.9 AST 473 H ALT 212 H Alkaline Phosphatase 49 Total Protein 4.9 L Albumin 1.7 L D 04/10/18 04/10/18 04/10/18 05:05 10:55 15:21 Sodium Potassium Chloride Carbon Dioxide Anion Gap BUN Creatinine Estimated GFR POC Glucose 92 112 H 106 Random Glucose Calcium Prot Corrected Calcium Phosphorus Magnesium Total Bilirubin AST ALT Alkaline Phosphatase Total Protein Albumin 04/10/18 04/10/18 04/11/18 19:48 23:39 04:35 Sodium 148 H Potassium 3.2 L Chloride 114 H Carbon Dioxide 24.2 Anion Gap 10 BUN 40 H Creatinine 1.18 H Estimated GFR 44 L POC Glucose 97 104 Random Glucose 103 Calcium 7.4 L* Prot Corrected Calcium 8.8 Phosphorus 3.5 Magnesium 2.7 H Total Bilirubin 0.7 AST 279 H ALT 161 H Alkaline Phosphatase 76 Total Protein 4.7 L Albumin 1.6 L Imaging: ITS Impressions Abdomen X-Ray 04/07/18 00:00 CONCLUSION: Nonspecific bowel gas pattern with scattered small and large bowel gas. Abdomen/Bladder Ultrasound 04/08/18 00:00 CONCLUSION: Kidneys within normal limits. Right pleural effusion noted. Abdomen/Pelvis CT 04/08/18 10:09 CONCLUSION: 1. Prominent amount of free air and free fluid in the upper abdomen and within a large hiatal hernia. A large portion of the stomach is in a hiatal hernia. Most likely etiology for the findings is a perforated gastric ulcer. Findings discussed with the patient's nurse. 2. Distended gallbladder. Chest CT 04/08/18 10:09 CONCLUSION: 1. Large hiatal hernia containing a large portion of the stomach with moderate amount of free air in the hiatal hernia and in the upper abdomen. Distal gastric wall thickening and extraluminal fluid adjacent to the distal stomach. Most likely etiology for the findings is a perforated gastric ulcer. Free fluid is also seen in the upper abdomen. 2. New bilateral lower lobe atelectasis/consolidation and small bilateral pleural effusions. Chest X-Ray 04/10/18 09:12 CONCLUSION: Bibasilar consolidation and pleural effusions. Chest Ultrasound 04/11/18 00:00 CONCLUSION: 1. Left pleural effusion and marked on the skin. Physical Exam: GENERAL: NAD int on mech vent SKIN: Warm and dry. HEAD: Atraumatic. Normocephalic. EYES: Pupils equal and round. No scleral icterus. No injection or drainage. ENT: No nasal bleeding or discharge. Mucous membranes pink and moist. NECK: Trachea midline. No JVD. CARDIOVASCULAR: Regular rate and rhythm. RESPIRATORY: No accessory muscle use. Clear to auscultation. Breath sounds equal bilaterally. GASTROINTESTINAL: Abdomen soft, no reacrion to plaption, + distended JPs x [address] with cloudy serosang dc Hepatic and splenic margins not palpable. MUSCULOSKELETAL: Extremities without clubbing, cyanosis, or edema. No obvious deformities. NEUROLOGICAL: awake, communicates with nodding PSYCHIATRIC: calm Assessment and Plan - Plan Large paraesophageal hernia sp perforation of stomach with diffuse contamination of abdominal cavity sp emergent lap repair Acute VDRF ALVIN CAD severe sp CABG on 04/04 worsening leukocytosis b/l pleural effusions, consolidations cont zosyn, dc fluconazol if BC remain negative fro fungual infx fu cultures chk UA, sputum clx chk KUB repeat bl clx stool for c.diff alanna RN alanna Acosta
--- NOTE | 2018-04-11 12:22 | P.PNCV ---
- Note Subjective/Hospital Course: 77/ female initially seen on 03/13/18 in [facility] office with Dr Warner, hx of progressive SOB over past few months . Known hx of CAD previous PCI's , ECHO revealed severe . Cardiac cath revealed multivessel disease PMH: Afib, Aortic stenosis, Asthma, CAD (coronary artery disease), CHF ( congestive heart failure), HLD (hyperlipidemia), HTN (hypertension) Hiatal hernia, Hypothyroid, LBBB (left bundle branch block), Mitral regurgitation, Myocardial infarct, Sleep apnea, TIA (transient ischemic attack) UTI (urinary tract infection) 04/04 pt electively admitted for surgery PREPROCEDURE DIAGNOSES 1. Severe Multi Vessel Coronary Artery Disease. 2. Severe aortic stenosis 3. Atrial fibrillation status post ablation POSTPROCEDURE DIAGNOSES 1. Severe Multi Vessel Coronary Artery Disease. 2. Severe aortic stenosis 3. Atrial fibrillation status post ablation 4. Heavily calcified ascending aorta SURGICAL PROCEDURE 1. Clampless off-pump Coronary Artery Bypass Grafting x 2 with Left Internal Mammary Artery (ZAPATA) to Left Anterior Descending (LAD), reverse saphenous vein graft to obtuse Marginal branch of the left Circumflex artery 2. Left leg Endoscopic Vein [place] 3. Left atrial appendage excision pt extubated after surgery crystalloid 2300cc, 1500cc EBL, 750cc cell saver 04/05 pt up in chair ECG with some mild global st elevation / pericarditis + rub, no pressors , stable for transfer, resume BB will need to resume coumadin when chest tubes out 04/06 chest tube dc without difficultly pt went into afib RVR last night and this am received 2nd bolus of amiodarone / po amiodarone increased will resume coumadin / this pm goal 2.5 / followed by Dr Menendez at home 04/07 pt was transferred back to CVICU yesterday became bradycardic / hypotensive / despite IV fluids calcium chloride / required Dopamine gtt / remains in afib rate now 90's , BP improved discussed with Dr Warner/ will consult cardiology regarding cardiac meds start lovenox and coumadin/ dc when INR > 2.0 dc fem line / consult PT / observe in CVICU today 04/08 Remains in atrial fibrillation with rapid ventricular response heart rate in the 120s Overnight events noted she received diltiazem, digoxin and Lopressor for heart rate with resultant hypotension requiring Dayday-Synephrine which is presently being weaned. Remains somewhat labile with her blood pressure Had echo this morning. Awaiting results Renal function worsening. Will consult nephrology. Likely secondary to hypoperfusion If ventricular function is okay, will give gentle hydration - Preoperative Diagnosis (1) Pneumoperitoneum (2) Paraesophageal hernia - Postoperative Diagnosis (1) Pneumoperitoneum (2) Paraesophageal hernia (3) Gastric ulcer, acute with perforation Date of procedure: 04/08/18 Procedure: Diagnostic laparoscopy Laparoscopic partial reduction of paraesophageal hernia Laparoscopic wedge resection of greater curvature of stomach 04/09 Operative findings noted Remains intubated and mechanically ventilated On Levophed for hemodynamic support. Weaning as tolerated Greatly appreciate Dr. Craig's input and assistance Renal function improving. Appreciate Dr. Holliday's input 04/10 remains sedated on vent 40% Fi02 SVV 17, CO 5.2/2.7 on Levo gtt at 2 mcq, in afib rate 110 creatinine improving left OANH drain 30cc/ 12 hrs, right OANH drain 10cc/ 12hr some drainage from prior chest tubes sites/ will dc prevena dressing 04/11 pt off all pressors , remains on 40% fi02 only on low dose fentanly for pain , awake follows commands, moves all extremities NA improving , creatinine improving, + hypoactive bowel sounds DC CVC line today, ok for Lovenox or Heparin SQ consult PT ROM Objective: Vital Signs - 24 hr 04/10/18 15:00 04/10/18 16:46 04/10/18 19:00 Temperature 98.9 F 99.5 F Pulse Rate 108 H 91 H 92 H Respiratory Rate 16 16 16 Blood Pressure 113/55 L 105/47 L Pulse Oximetry 98 97 97 04/10/18 20:41 04/10/18 23:00 04/11/18 00:37 Temperature 99.6 F Pulse Rate 94 H 113 H Respiratory Rate 16 16 16 Blood Pressure 106/57 L Pulse Oximetry 97 97 97 04/11/18 03:00 04/11/18 05:18 04/11/18 07:00 Temperature 98.9 F 99.0 F Pulse Rate 118 H 118 H 105 H Respiratory Rate 16 16 16 Blood Pressure 120/53 L 112/51 L Pulse Oximetry 97 98 98 04/11/18 09:13 04/11/18 09:14 04/11/18 11:00 Temperature 98.7 F Pulse Rate 107 H 138 H Respiratory Rate 16 16 16 Blood Pressure 117/65 Pulse Oximetry 98 98 GENERAL: A&O x 3 SKIN: Warm and dry. sternal incision intact and well approximated, left leg incision intact and well approximated HEAD: Normocephalic. EYES: No scleral icterus. No injection or drainage. NECK: Supple, trachea midline. No JVD or lymphadenopathy. CARDIOVASCULAR: irregular rate and rhythm, 3/6 SM murmurs, no gallops, or rubs. general edema RESPIRATORY: diminished in bases, few crackles Breath sounds equal bilaterally. No accessory muscle use. GASTROINTESTINAL: Abdomen soft, slightly distended , incisions intact and well approximated , OANH drains x [address], hypoactive bowels sounds MUSCULOSKELETAL: No cyanosis, BACK: Nontender without obvious deformity. No CVA tenderness. Labs: Laboratory Results - last 12 hr 04/08/18 04/11/18 04/11/18 17:24 04:35 04:35 WBC 20.2 H D RBC 2.98 L Hgb 8.9 L Hct 26.2 L MCV 88.0 MCH 30.0 MCHC 34.1 RDW 16.0 Plt Count 231 MPV 8.3 Prelim Diff (Auto) Slide review pending Neut % (Auto) 87.9 H Lymph % (Auto) 4.2 L [place] % (Auto) 6.9 Eos % (Auto) 0.9 Baso % (Auto) 0.1 Neut # (Auto) 17.8 H Lymph # (Auto) 0.8 L [place] # (Auto) 1.4 H Eos # (Auto) 0.2 Baso # (Auto) 0.0 WBC Differential Manual diff final Seg Neuts % (Manual) 87 H Band Neuts % (Manual) 7 H Lymphocytes % (Manual) 2 L Monocytes % (Manual) 2 Eosinophils % (Manual) 1 Metamyelocytes % (Man) 1 Abs Neuts (Manual) 19.2 H Differential Comment . Platelet Estimate Normal Platelet Morphology Normal PT INR Sodium 148 H Potassium 3.2 L Chloride 114 H Carbon Dioxide 24.2 Anion Gap 10 BUN 40 H Creatinine 1.18 H Estimated GFR 44 L Random Glucose 103 Calcium 7.4 L* Prot Corrected Calcium 8.8 Phosphorus 3.5 Magnesium 2.7 H Total Bilirubin 0.7 AST 279 H ALT 161 H Alkaline Phosphatase 76 Total Protein 4.7 L Albumin 1.6 L MTS Gel Crossmatch See Detail 04/11/18 04:35 WBC RBC Hgb Hct MCV MCH MCHC RDW Plt Count MPV Prelim Diff (Auto) Neut % (Auto) Lymph % (Auto) [place] % (Auto) Eos % (Auto) Baso % (Auto) Neut # (Auto) Lymph # (Auto) [place] # (Auto) Eos # (Auto) Baso # (Auto) WBC Differential Seg Neuts % (Manual) Band Neuts % (Manual) Lymphocytes % (Manual) Monocytes % (Manual) Eosinophils % (Manual) Metamyelocytes % (Man) Abs Neuts (Manual) Differential Comment Platelet Estimate Platelet Morphology PT 15.1 H INR 1.5 Sodium Potassium Chloride Carbon Dioxide Anion Gap BUN Creatinine Estimated GFR Random Glucose Calcium Prot Corrected Calcium Phosphorus Magnesium Total Bilirubin AST ALT Alkaline Phosphatase Total Protein Albumin MTS Gel Crossmatch Result Diagrams: 04/11/18 04:35 04/11/18 04:35 Telemetry: afib - Plan (1) Severe aortic stenosis Plan: will need planned TAVR after discharge (2) Coronary artery disease involving tolowa dee-ni' coronary artery Plan: ASA, consider low dose BB was on verapamil at home (3) Congestive heart failure (CHF) Plan: gentle diuresis (4) Atrial fibrillation Plan: s/p atrial appendage excision resume Coumadin / when cleared by general surgery (5) COPD (chronic obstructive pulmonary disease) Plan: nebs ezpap and acapella (6) S/P CABG (coronary artery bypass graft) Plan: ASA, resume home med crestor pulm toileting , nebs ezpap, acapella OOB ambulate eval for rehab at discharge (7) S/P exploratory laparotomy Plan: general surgery following (10) Respiratory failure requiring intubation Plan: vent weaning as per CCM (11) Leukocytosis Plan: hernandes -culture ABX per ID DC CVC line (12) Acute renal failure Plan: nephro following
[2018-04-11] MEDS: Potassium Chlor 20 mEq Premix 20 MEQ/100 ML PIGGYBACK IV.SIG PRN ×4 (12:26→21:31)
--- NOTE | 2018-04-11 13:14 | XR ---
EXAM DATE: 04/11/2018 1:07 PM EST AGE/SEX: 77 years / Female INDICATIONS: Abdominal distention. CLINICAL DATA: This is the patient's subsequent encounter. Patient reports that signs and symptoms h ave been present for 3 days and indicates a pain score of 5/10. MEDICAL/SURGICAL HISTORY: . Hypertension. Hypothyroidism. Transient ischemic attack. Afib. Aort ic stenosis. CAD. CHF. Hyperlipidemia. Myocardial infarct. Sleep apnea. Mitral regurgitation. Intubat ed. CABG. Cardiac catheterization. . COMPARISON: C, ABDOMEN 1V KUB, 04/07/2018. . FINDINGS: 2 AP supine portable views of the abdomen were obtained and demonstrate gas and stool nonsegmental i n the colon. There are several loops of nondilated air-containing small bowel. There is no evidence o f free air or mass effect on this supine study. A nasogastric tube is in place with the tip projected over the mid stomach. The patient is status post median sternotomy. The bony structures demonstrate osteopenia and degenerative changes. CONCLUSION: Nonspecific, nonobstructive bowel gas pattern which may represent a mild ileus or gastroenteritis. Electronically signed by: Amandeep Tejeda MD 04/11/2018 1:13 PM EST
--- NOTE | 2018-04-11 16:59 | CT ---
EXAM DATE: 04/11/2018 4:31 PM EST AGE/SEX: 77 years / Female INDICATIONS: Right pleural fluid CLINICAL DATA: This is the patient's initial encounter. Patient reports that signs and symptoms have been present for 1 day and indicates a pain score of Nonresponsive. MEDICAL/SURGICAL HISTORY: Non-responsive. Non-responsive. COMPARISON: No prior exams available for comparison. DEVICE(S): 6 Fr [id number] FLUID: Total volume of 550 of clear, red fluid was removed. Fluid was sent to lab for ordered studies.. . . PROCEDURE: CT guided right thoracentesis. The site was prepped in sterile fashion. Full sterile technique was used, including cap, mask, steri le gloves and gown and a large sterile sheet. Hand hygiene and 2% chlorhexidine and/or betadine/alco hol prep was utilized per protocol for cutaneous antisepsis. The skin and subcutaneous tissues were infiltrated with local anesthetic solution. Using automated exposure control and adjustment of the mA and/or kV according to patient size, radiation dose was kept as low as reasonably achievable to obta in optimal diagnostic quality images. DICOM format image data is available electronically for review and comparison. With the patient supine on the CT table, collar starcher images were obtained through the chest demonstrating t he right sided pleural effusion. Dermatotomy was made and the prescribed catheter was advanced into the pleural fluid. The pleural fluid as above was removed from the hemithorax. Post procedural scan show reduction in the amount of fluid with no evidence of pneumothorax. The patient was sent to recovery in stable condition. FINDINGS: 550 cc of bloody fluid was removed without difficulty. No pneumothorax is identified. CONCLUSION: 1. Uncomplicated CT-guided thoracentesis. Electronically signed by: Guido Garzon MD 04/11/2018 4:58 PM EST
--- NOTE | 2018-04-11 17:21 | XR ---
EXAM DATE: 04/11/2018 5:14 PM EST AGE/SEX: 77 years / Female INDICATIONS: Post right thoracentesis. CLINICAL DATA: This is the patient's subsequent encounter. Patient reports that signs and symptoms h ave been present for 4 - 6 days and indicates a pain score of Nonresponsive. MEDICAL/SURGICAL HISTORY: . Chronic obstructive pulmonary disease. Congestive heart failure. My ocardial infarction. None. COMPARISON: No prior exams available for comparison. FINDINGS: Status post a right thoracentesis. There is no evidence of pneumothorax. There is an endotracheal tub e in place which appears to be in good position. There is an NG tube in the stomach. The heart size i s within normal limits and there is evidence of previous cardiothoracic surgery. CONCLUSION: Status post right thoracentesis. No evidence of pneumothorax. Electronically signed by: Cortez Lamb MD 04/11/2018 5:20 PM EST
[2018-04-11] MEDS: Heparin Drip 25,000 UNIT/250 ML BAG IV.CONT PRN (17:31)
[2018-04-11 17:55] LABS: Bilirubin,Urine Negative (Negative); Clarity,Urine Turbid (Clear); Color,Urine Yellow (Yellw/Straw); Glucose,Urine (UA) Negative (Negative); Hyaline Casts,Urine 2 /lpf (0-3); Leukocyte Esterase,Urine Trace (Negative); Mucus,Urine Few /lpf (Occasional); Nitrite,Urine Negative (Negative); Specific Gravity,Urine 1.013 (1.002-1.035); Squamous Epithelial Cell,Urine 1 /hpf (0-5); Uric Acid Crystals,Urine Many /hpf
[2018-04-11 18:13] LABS: Activated Partial Thrombo Time 34.2 sec (23.4-31.7); INR 1.6 Ratio
[2018-04-11 18:20] LABS: Total Protein,Pleural Fluid 2.3 gm/dL
--- NOTE | 2018-04-11 18:41 | P.PNCA ---
Subjective Interval history: No events overnight CT guided thoracentesis AFib with higher rates today On/Off minimal Levophed Responsive, following commands on vent Medications and Allergies Active Medications: Active Medications Al Hydroxide/Mg Hydroxide (Milk Of Magnalex Liq) 30 ml PO DAILY [facility] Last Admin: 04/11/18 08:45 Dose: Not Given Albuterol (Duoneb Neb (Prn)) 1 ampul NEB Q2HR NEB PRN PRN Reason: WHEEZING Aspirin (Aspirin Chew) 81 mg PO DAILY [facility] Last Admin: 04/11/18 08:44 Dose: 81 mg Bisacodyl (Dulcolax Supp) 10 mg RECTAL PRN PRN PRN Reason: SEE LABEL COMMENTS Chlorhexidine Gluconate (Peridex 0.12% Oral Kit) 15 ml OROPHARYNG BID@0800, 1999 [facility] Last Admin: 04/11/18 08:46 Dose: 15 ml Dextrose (D50w Vial) 50 ml IV.PUSH UNSCH PRN PRN Reason: PER HYPOGLYCEMIA PROTOCOL Docusate Sodium (Colace) 100 mg PO BID [facility] Last Admin: 04/11/18 08:44 Dose: Not Given Furosemide (Lasix Inj) 40 mg IV.PUSH DAILY [facility] Last Admin: 04/11/18 11:52 Dose: 40 mg Glucagon (Glucagon Inj) 1 mg OTHER UNSCH PRN PRN Reason: for Hypoglycemia Protocol Sodium Chloride (Ns Inj) 500 mls @ 30 mls/hr IV.SIG .Q10H [facility] Last Admin: 04/04/18 06:39 Dose: Not Given Acetaminophen (Ofirmev Inj) 1,000 mg in 100 mls @ 400 mls/hr IV.SIG Q6H PRN PRN Reason: PAIN SCALE 1-10 Last Infusion: 04/07/18 18:44 Dose: Infused Metronidazole/Sodium Chloride (Flagyl 500 Mg Inj) 100 mls @ 100 mls/hr IV.SIG Q8H [facility] Last Infusion: 04/11/18 17:01 Dose: Infused Piperacillin/Tazobactam/Dextrose (Zosyn 3.375 Gm Premix) 50 mls @ 200 mls/hr IV.SIG Q6H [facility] Last Infusion: 04/11/18 16:46 Dose: Infused Fentanyl (Fentanyl 10 Mcg/Ml Premix Drip) 2,500 mcg in 250 mls @ 5 mls/hr IV.SIG TITRATE PRN; Protocol PRN Reason: Per Protocol Last Admin: 04/10/18 16:49 Dose: 50 mcg/hr, 5 mls/hr Fluconazole (Diflucan 200 Mg Premix Bag) 100 mls @ 100 mls/hr IV.SIG Q24H [facility] Last Infusion: 04/11/18 01:30 Dose: Infused Dexmedetomidine HCl 1,000 mcg/ (Sodium Chloride) 250 mls @ 4.2 mls/hr IV.CONT TITRATE PRN; Protocol PRN Reason: Per Protocol Last Admin: 04/09/18 13:24 Dose: 0.2 mcg/kg/hr, 4.2 mls/hr Magnesium Sulfate 4 gm/ Sodium (Chloride) 100 mls @ 50 mls/hr IV.SIG UNSCH PRN PRN Reason: For Magnesium 0.9 - 1.1 mg/dL Potassium Chloride (Kcl 40 Meq Premix Inj) 40 meq in 100 mls @ 25 mls/hr IV.SIG Q2H PRN PRN Reason: For Potassium 2.8 - 3.2 mEq/L Potassium Chloride (Kcl 20 Meq Premix Inj) 20 meq in 100 mls @ 50 mls/hr IV.SIG Q2H PRN PRN Reason: For Potassium 3.3 - 3.5 mEq/L Potassium Chloride (Kcl 40 Meq Premix Inj) 40 meq in 100 mls @ 25 mls/hr IV.SIG UNSCH PRN PRN Reason: For Potassium 3.3 - 3.5 mEq/L Potassium Chloride (Kcl 20 Meq Premix Inj) 20 meq in 100 mls @ 50 mls/hr IV.SIG Q2H PRN PRN Reason: For Potassium 2.8 - 3.2 mEq/L Last Admin: 04/11/18 16:33 Dose: 50 mls/hr Potassium Phosphate 30 mmol/ (Sodium Chloride) 260 mls @ 42 mls/hr IV.SIG UNSCH PRN PRN Reason: SEE LABEL COMMENTS Magnesium Sulfate 2 gm/ Sodium (Chloride) 100 mls @ 50 mls/hr IV.SIG UNSCH PRN PRN Reason: For Magnesium 1.2 - 1.6 mg/dL Sodium Phosphate 30 mmol/ (Sodium Chloride) 260 mls @ 42 mls/hr IV.SIG UNSCH PRN PRN Reason: For Phosphorus < 2.5 mg/dL Heparin Sodium/Dextrose (Heparin/D5w 25,000 U/250 Ml) 25,000 unit in 250 mls @ 17 mls/hr IV.CONT TITRATE PRN; Protocol PRN Reason: Per Protocol Last Admin: 04/11/18 17:31 Dose: 1,700 units/hr, 17 mls/hr Insulin Aspart (Novolog Insulin Correctional Sugar Inj) 0 unit SQ Q4HR [facility]; Protocol Last Admin: 04/11/18 16:31 Dose: Not Given Levothyroxine Sodium (Synthroid) 100 mcg PO DAILY@0600 [facility] Last Admin: 04/11/18 05:45 Dose: 100 mcg Magnesium Oxide (Mag-Ox) 800 mg PO UNSCH PRN PRN Reason: For Magnesium 1.2 - 1.6 mg/dL Miscellaneous (Pill Splitter) 1 each OTHER UNSCH PRN PRN Reason: SEE LABEL COMMENTS Miscellaneous Medication () 1 each OROPHARYNG 0000,0400,1200,1600 [facility] Last Admin: 04/11/18 17:49 Dose: 1 each Multivitamins/Minerals (Theragran-M) 1 tab PO DAILY [facility] Last Admin: 04/11/18 08:44 Dose: 1 tab Ondansetron HCl (Zofran Inj) 4 mg IV.PUSH Q6H PRN PRN Reason: NAUSEA OR VOMITING Last Admin: 04/08/18 09:29 Dose: 4 mg Pantoprazole Sodium (Protonix Inj) 40 mg IV.PUSH Q12H [facility] Last Admin: 04/11/18 11:52 Dose: 40 mg Paroxetine HCl (Paxil) 10 mg PO DAILY [facility] Last Admin: 04/11/18 08:44 Dose: 10 mg Patient's Own: ( Rosuvastatin [ Rosuvastatin] 20 Mg) 0 each PO DAILY [facility] Polyethylene Glycol (Miralax) 17 gm PO DAILY [facility] Last Admin: 04/11/18 08:46 Dose: Not Given Potassium Bicarb/Potassium Chloride (K-Lyte Cl Eff) 50 meq PO UNSCH PRN PRN Reason: For Potassium 3.3 - 3.5 mEq/L Potassium Phosphate (K-Phos Original) 2,000 mg PO Q4H PRN PRN Reason: Phosphorus Less Than 2.5 mg/dL Potassium Phosphate (K-Phos Original) 2,000 mg PO UNSCH PRN PRN Reason: SEE LABEL COMMENTS Sennosides (Senokot) 8.6 mg PO HS [facility] Last Admin: 04/10/18 20:16 Dose: 8.6 mg Sodium Biphosphate/Sodium Phosphate (Fleets Enema (Adult)) 118 ml RECTAL UNSCH PRN PRN Reason: SEE LABEL COMMENTS Sodium Chloride (Ns Flush) 2 ml IV.FLUSH BID [facility] Last Admin: 04/11/18 08:46 Dose: 2 ml Sodium Chloride (Ns Flush) 2 ml IV.FLUSH PRN PRN PRN Reason: FLUSH AFTER USING IV ACCESS Sterile Water (Free Water) 250 ml G-TUBE Q6HR [facility] Last Admin: 04/11/18 17:49 Dose: 250 ml Terbutaline Sulfate (Brethine Inj) 1 mg SQ UNSCH PRN PRN Reason: For Extravasation Verapamil HCl (Isoptin) 40 mg PO TID [facility] Last Admin: 04/08/18 19:20 Dose: Not Given Allergies Allergy/AdvReac Type Severity Reaction Status Date / Time atorvastatin AdvReac Hypotension Verified 04/04/18 06:21 simvastatin AdvReac Hypotension Verified 04/04/18 06:21 Home Medications Medication Instructions Recorded Confirmed Type ciprofloxacin HCl [Cipro] 500 mg PO Q12H 02/16/18 04/04/18 History coenzyme Q10 [Co Q-10] 10 mg PO TID 02/16/18 04/04/18 History furosemide 40 mg PO BID 02/16/18 04/04/18 History losartan 50 mg PO DAILY 02/16/18 04/04/18 History pantoprazole 40 mg PO DAILY 02/16/18 04/04/18 History paroxetine HCl 10 mg PO DAILY 02/16/18 04/04/18 History potassium chloride [K-Tab] 10 meq PO DAILY 02/16/18 04/04/18 History ranitidine HCl 150 mg PO BID 02/16/18 04/04/18 History rosuvastatin 20 mg PO DAILY 02/16/18 04/04/18 History verapamil 180 mg PO DAILY 02/16/18 04/04/18 History warfarin 5 mg PO DAILY 02/16/18 04/04/18 History aspirin 81 mg PO DAILY 03/09/18 04/04/18 History nitroglycerin 0.4 mg SUBLINGUAL Q5-15M PRN 03/09/18 04/04/18 History Physical Exam Vital signs: Vital Signs 04/10/18 19:00 04/10/18 20:41 04/10/18 23:00 Temperature 99.5 F 99.6 F Pulse Rate 92 H 94 H 113 H Respiratory Rate 16 16 16 Blood Pressure 105/47 L 106/57 L Pulse Oximetry 97 97 97 04/11/18 00:37 04/11/18 03:00 04/11/18 05:18 Temperature 98.9 F Pulse Rate 118 H 118 H Respiratory Rate 16 16 16 Blood Pressure 120/53 L Pulse Oximetry 97 97 98 04/11/18 07:00 04/11/18 09:13 04/11/18 09:14 Temperature 99.0 F Pulse Rate 105 H 107 H Respiratory Rate 16 16 16 Blood Pressure 112/51 L Pulse Oximetry 98 98 04/11/18 11:00 04/11/18 13:23 04/11/18 15:00 Temperature 98.7 F Pulse Rate 138 H Respiratory Rate 16 16 Blood Pressure 117/65 Pulse Oximetry 98 98 99 04/11/18 17:14 04/11/18 17:23 Temperature 99.0 F Pulse Rate 122 H 130 H Respiratory Rate 16 Blood Pressure 121/50 L Pulse Oximetry 98 Intake & Output 04/10/18 04/11/18 04/11/18 18:59 06:59 18:59 Intake Total 950 / 950 1900 / 1900 750 / 750 Output Total 600 / 600 495 / 495 820 / 820 Balance 350 / 350 1405 / 1405 -70 / -70 Weight 95 kg Intake: IV 450 / 450 1400 / 1400 250 / 250 D5W/1/2 NS Inj 1,000 ML @ 84 1000 / 1000 mls/hr IV.CONT .[id number] [facility] Rx# :[id number] Diflucan 200 mg Premix Bag 100 100 / 100 ML @ 100 mls/hr IV.SIG Q24H [facility] Rx#:[id number] Zosyn 3.375 GM Premix 50 ML @ 100 / 100 100 / 100 50 / 50 200 mls/hr IV.SIG Q6H [facility] Rx#: [id number] KCl 20 mEq Premix Inj 20 meq In 100 / 100 100 ml @ 50 mls/hr IV.SIG Q2H PRN Rx#:[id number] fentaNYL 10 mcg/mL Premix Drip 250 / 250 2,500 mcg In 250 ml @ 50 MCG/HR 5 mls/hr IV.SIG TITRATE PRN Rx #:[id number] Flagyl 500 MG Inj 100 ML @ 100 100 / 100 200 / 200 100 / 100 mls/hr IV.SIG Q8H [facility] Rx#: [id number] Oral 0 / 0 0 / 0 Other 500 / 500 500 / 500 500 / 500 Output: Urine Amount (Catheter) 545 / 545 450 / 450 775 / 775 Indwelling Urethral Catheter 545 / 545 450 / 450 775 / 775 Gastric Drainage / Right Nare Nasogastric Tube Wound Drainage 45 / 45 45 / 45 # 1 Right Anterior Abdomen # 2 Left Anterior Abdomen Other: # Bowel Movements 0 0 0 Narrative: GENERAL: NAD, stable SKIN: Warm and dry. HEAD: Atraumatic. Normocephalic. EYES: Pupils equal and round. No scleral icterus. No injection or drainage. ENT: No nasal bleeding or discharge. Mucous membranes pink and moist. NECK: Trachea midline. No JVD. CARDIOVASCULAR: Irregularly irregular RESPIRATORY: No accessory muscle use. Decreased breath sounds bilaterally GASTROINTESTINAL: Abdomen soft, non-tender, nondistended. Hepatic and splenic margins not palpable. OANH drains in place with maroon fluid MUSCULOSKELETAL: Extremities without clubbing, edema. No obvious deformities. Distal toes appear dusky NEUROLOGICAL: Intubated and lightly sedated, following simple commands - Urinary Catheter Management Indwelling Temp Sensing Catheter Cath placed during this visit: yes Urethral indwelling: No Reason for continuing: Hourly intake/output Insertion date: 04/04/18 Insertion time: 07:52 Indwelling Urethral Catheter Cath placed during this visit: yes Reason for continuing: Hourly intake/output Insertion date: 04/08/18 Insertion time: 16:51 Results 04/11/18 04:35 04/11/18 04:35 Cardiac Enzymes 04/10/18 04/11/18 Range/Units 05:00 04:35 AST 473 H 279 H (15-37) U/L Coagulation 04/10/18 04/11/18 04/11/18 Range/Units 05:00 04:35 17:50 PT 15.5 H 15.1 H 16.0 H (9.8-11.6) sec APTT 34.2 H (23.4-31.7) sec CBC 04/10/18 04/11/18 Range/Units 05:00 04:35 WBC 11.3 H D 20.2 H D (4.0-11.0) th/mm3 RBC 3.18 L 2.98 L (4.00-5.30) mil/mm3 Hgb 9.4 L 8.9 L (11.6-15.3) gm/dL Hct 28.3 L 26.2 L (35.0-46.0) % Plt Count 242 231 (150-450) th/mm3 Neut # (Auto) 9.8 H 17.8 H (1.8-7.7) th/mm3 Lymph # (Auto) 0.8 L 0.8 L (1.0-4.8) th/mm3 [place] # (Auto) 0.7 1.4 H (0.0-0.9) th/mm3 Eos # (Auto) 0.0 0.2 (0.0-0.4) th/mm3 Baso # (Auto) 0.0 0.0 (0.0-0.2) th/mm3 Comprehensive Metabolic Panel 04/10/18 04/11/18 Range/Units 05:00 04:35 Sodium 149 H 148 H (136-145) meq/L Potassium 3.4 L 3.2 L (3.5-5.1) meq/L Chloride 115 H 114 H (98-107) meq/L Carbon Dioxide 26.0 24.2 (21.0-32.0) meq/L BUN 50 H 40 H (7-18) mg/dL Creatinine 1.40 H 1.18 H (0.50-1.00) mg/dL Calcium 7.8 L 7.4 L* (8.5-10.1) mg/dL AST 473 H 279 H (15-37) U/L ALT 212 H 161 H (10-53) U/L Alkaline Phosphatase 49 76 (45-117) U/L Total Protein 4.9 L 4.7 L (6.4-8.2) g/dL Albumin 1.7 L D 1.6 L (3.4-5.0) g/dL Intake and Output 04/11/18 04/11/18 04/11/18 06:59 14:59 22:59 Intake Total 1900 / 1900 0 / 0 750 / 750 Output Total 495 / 495 820 / 820 Balance 1405 / 1405 0 / 0 -70 / -70 Intake: IV 1400 / 1400 0 / 0 250 / 250 D5W/1/2 NS Inj 1,000 ML @ 84 1000 / 1000 mls/hr IV.CONT .[id number] [facility] Rx# :[id number] Diflucan 200 mg Premix Bag 100 100 / 100 ML @ 100 mls/hr IV.SIG Q24H [facility] Rx#:[id number] Zosyn 3.375 GM Premix 50 ML @ 100 / 100 50 / 50 200 mls/hr IV.SIG Q6H [facility] Rx#: [id number] KCl 20 mEq Premix Inj 20 meq In 0 / 0 100 / 100 100 ml @ 50 mls/hr IV.SIG Q2H PRN Rx#:[id number] Flagyl 500 MG Inj 100 ML @ 100 200 / 200 100 / 100 mls/hr IV.SIG Q8H [facility] Rx#: [id number] Oral 0 / 0 Other 500 / 500 500 / 500 Output: Urine Amount (Catheter) 450 / 450 775 / 775 Indwelling Urethral Catheter 450 / 450 775 / 775 Wound Drainage 45 / 45 45 / 45 # 1 Right Anterior Abdomen 30 / 30 30 / 30 # 2 Left Anterior Abdomen 15 / 15 15 / 15 Other: # Bowel Movements 0 0 Weight 95 kg - Imaging and Cardiology Imaging: Impressions Chest X-Ray 04/10/18 09:12 CONCLUSION: Bibasilar consolidation and pleural effusions. Chest Ultrasound 04/11/18 00:00 CONCLUSION: 1. Left pleural effusion and marked on the skin. Chest Ultrasound 04/11/18 00:00 CONCLUSION: 1. Right pleural effusion marked on the skin. Thoracentesis CT 04/11/18 00:00 CONCLUSION: 1. Uncomplicated CT-guided thoracentesis. Abdomen X-Ray 04/11/18 12:13 CONCLUSION: Nonspecific, nonobstructive bowel gas pattern which may represent a mild ileus or gastroenteritis. Chest X-Ray 04/11/18 16:34 CONCLUSION: Status post right thoracentesis. No evidence of pneumothorax. Assessment and Plan - Assessment (1) Severe aortic stenosis Code(s): I35.0 - Nonrheumatic aortic (valve) stenosis Status: Chronic (2) Coronary artery disease involving [place] coronary artery Code(s): I25.10 - Atherosclerotic heart disease of [place] coronary artery without angina pectoris Status: Acute (3) Congestive heart failure (CHF) Code(s): I50.9 - Heart failure, unspecified Status: Chronic (4) Atrial fibrillation Code(s): I48.91 - Unspecified atrial fibrillation Status: Chronic (5) S/P CABG (coronary artery bypass graft) Code(s): Z95.1 - Presence of aortocoronary bypass graft Status: Acute - Plan 1) CAD s/p CABGx2 2) Residual Possible TAVR in the future Not a BAV candidate at this time with at least moderate AR 3) AFib Cardioverted before abdominal surgery Back in AFib Heart rates elevated today Verapamil DC's With current blood pressure and on/off vasopressors, will plan to give digoxin to help with heart rates Start on heparin drip, will have to restart Coumadin at some point Will have to see how she does hemodynamically going further, might need to cardiovert again, stable for now 4) Gastric ulcer/perfs Per surgery
[2018-04-11] MEDS: Digoxin Inj 500 MCG/2 ML Ampul IV.PUSH SCH (18:53)
[2018-04-11 19:02] LABS: Lymphocytes,Pleural Fluid 4 %; Monocytes,Pleural Fluid 4 %; Neutrophils,Pleural Fluid 92 %; RBC,Pleural Fluid 77867 /mm3 (0-0)
[2018-04-11] MEDS ORDERED: Heparin - SQ 10,000 UNITS/ML Vial SQ SCH (21:00)
[2018-04-11] MEDS: Dextrose 50% in Water 50 ML Vial IV.PUSH PRN (21:55)
[2018-04-12] MEDS: Digoxin Inj 500 MCG/2 ML Ampul IV.PUSH SCH ×2 (00:38→07:41)
[2018-04-12 02:08] LABS: Baso % (Auto) 0.1 % (0.0-2.0); Eos # (Auto) 0.1 th/mm3 (0.0-0.4); Eos % (Auto) 0.4 % (0.0-4.0); Hemoglobin 9.6 gm/dL (11.6-15.3); Lymph # (Auto) 0.8 th/mm3 (1.0-4.8); Lymph % (Auto) 2.7 % (9.0-44.0); Mean Corpuscular HGB Conc 33.1 % (32.0-36.0); Mean Corpuscular Hemoglobin 29.2 pg (27.0-34.0); Mean Corpuscular Volume 88.1 fL (80.0-100.0); Mean Platelet Volume 8.2 fL (7.0-11.0); Mono # (Auto) 1.9 th/mm3 (0.0-0.9); Mono % (Auto) 6.8 % (0.0-8.0); Neut # (Auto) 25.5 th/mm3 (1.8-7.7); Platelet Count 226 th/mm3 (150-450); Red Blood Count 3.29 mil/mm3 (4.00-5.30); White Blood Count 28.4 th/mm3 (4.0-11.0)
[2018-04-12 02:54] LABS: Lymphocytes 3 % (9-44); Metamyelocytes 1 % (0-1); Monocytes 5 % (0-8)
[2018-04-12 02:55] LABS: Platelet Estimate Normal (Normal); Platelet Morphology Normal (Normal); RBC Morphology Normal (Normal); Toxic Granulation 1+
[2018-04-12 03:02] LABS: Albumin 1.5 g/dL (3.4-5.0); Calcium 7.4 mg/dL (8.5-10.1); Carbon Dioxide 20.7 meq/L (21.0-32.0); Magnesium 2.5 mg/dL (1.5-2.5); Phosphorus 3.7 mg/dL (2.5-4.9); Potassium 4.3 meq/L (3.5-5.1)
[2018-04-12] MEDS: Oral Hygiene Kit OROPHARYNG SCH ×4 (05:33→23:12)
[2018-04-12] MEDS: Piperacil/Tazo 3.375 GM Premix 50 ML IV.SIG SCH ×4 (05:33→22:54)
[2018-04-12] MEDS: Insulin NovoLOG Aspart Correctional Sugar Inj SQ SCH ×5 (05:34→21:33)
[2018-04-12] MEDS: Levothyroxine 100 MCG Tablet PO SCH (05:34)
[2018-04-12] MEDS: Dextrose 50% in Water 50 ML Vial IV.PUSH PRN (05:40)
[2018-04-12] MEDS: Multivitamin/Minerals Therapeutic Tablet PO SCH (08:17)
[2018-04-12] MEDS: Polyethylene Glycol 3350 17 GM Packet PO SCH (08:17)
[2018-04-12] MEDS: Chlorhexidine 0.12% Oral Kit 15 ML UDC OROPHARYNG SCH ×2 (08:17→21:33)
[2018-04-12] MEDS: Docusate Sodium 100 MG Capsule PO SCH ×2 (08:18→21:34)
--- NOTE | 2018-04-12 09:14 | P.PNCV ---
- Note Subjective/Hospital Course: 77/ female initially seen on 03/13/18 in [facility] office with Dr Warner, hx of progressive SOB over past few months . Known hx of CAD previous PCI's , ECHO revealed severe . Cardiac cath revealed multivessel disease PMH: Afib, Aortic stenosis, Asthma, CAD (coronary artery disease), CHF ( congestive heart failure), HLD (hyperlipidemia), HTN (hypertension) Hiatal hernia, Hypothyroid, LBBB (left bundle branch block), Mitral regurgitation, Myocardial infarct, Sleep apnea, TIA (transient ischemic attack) UTI (urinary tract infection) 04/04 pt electively admitted for surgery PREPROCEDURE DIAGNOSES 1. Severe Multi Vessel Coronary Artery Disease. 2. Severe aortic stenosis 3. Atrial fibrillation status post ablation POSTPROCEDURE DIAGNOSES 1. Severe Multi Vessel Coronary Artery Disease. 2. Severe aortic stenosis 3. Atrial fibrillation status post ablation 4. Heavily calcified ascending aorta SURGICAL PROCEDURE 1. Clampless off-pump Coronary Artery Bypass Grafting x 2 with Left Internal Mammary Artery (ZAPATA) to Left Anterior Descending (LAD), reverse saphenous vein graft to obtuse Marginal branch of the left Circumflex artery 2. Left leg Endoscopic Vein [place] 3. Left atrial appendage excision pt extubated after surgery crystalloid 2300cc, 1500cc EBL, 750cc cell saver 04/05 pt up in chair ECG with some mild global st elevation / pericarditis + rub, no pressors , stable for transfer, resume BB will need to resume coumadin when chest tubes out 04/06 chest tube dc without difficultly pt went into afib RVR last night and this am received 2nd bolus of amiodarone / po amiodarone increased will resume coumadin / this pm goal 2.5 / followed by Dr Menendez at home 04/07 pt was transferred back to CVICU yesterday became bradycardic / hypotensive / despite IV fluids calcium chloride / required Dopamine gtt / remains in afib rate now 90's , BP improved discussed with Dr Warner/ will consult cardiology regarding cardiac meds start lovenox and coumadin/ dc when INR > 2.0 dc fem line / consult PT / observe in CVICU today 04/08 Remains in atrial fibrillation with rapid ventricular response heart rate in the 120s Overnight events noted she received diltiazem, digoxin and Lopressor for heart rate with resultant hypotension requiring Dayday-Synephrine which is presently being weaned. Remains somewhat labile with her blood pressure Had echo this morning. Awaiting results Renal function worsening. Will consult nephrology. Likely secondary to hypoperfusion If ventricular function is okay, will give gentle hydration - Preoperative Diagnosis (1) Pneumoperitoneum (2) Paraesophageal hernia - Postoperative Diagnosis (1) Pneumoperitoneum (2) Paraesophageal hernia (3) Gastric ulcer, acute with perforation Date of procedure: 04/08/18 Procedure: Diagnostic laparoscopy Laparoscopic partial reduction of paraesophageal hernia Laparoscopic wedge resection of greater curvature of stomach 04/09 Operative findings noted Remains intubated and mechanically ventilated On Levophed for hemodynamic support. Weaning as tolerated Greatly appreciate Dr. Craig's input and assistance Renal function improving. Appreciate Dr. Holliday's input 04/10 remains sedated on vent 40% Fi02 SVV 17, CO 5.2/2.7 on Levo gtt at 2 mcq, in afib rate 110 creatinine improving left OANH drain 30cc/ 12 hrs, right OANH drain 10cc/ 12hr some drainage from prior chest tubes sites/ will dc prevena dressing 04/11 pt off all pressors , remains on 40% fi02 only on low dose fentanly for pain , awake follows commands, moves all extremities NA improving , creatinine improving, + hypoactive bowel sounds DC CVC line today, ok for Lovenox or Heparin SQ consult PT ROM 04/12 s/p right thoracentesis yesterday, removed 550cc bloody fluid remains on vent 40% awake , following commands, worsening leukocytosis cultures pending / ID following on Heparin gtt, rate improved Objective: Vital Signs - 24 hr 04/11/18 09:13 04/11/18 09:14 04/11/18 11:00 Temperature 98.7 F Pulse Rate 107 H 138 H Respiratory Rate 16 16 16 Blood Pressure 117/65 Pulse Oximetry 98 98 04/11/18 13:23 04/11/18 15:00 04/11/18 17:14 Temperature Pulse Rate 122 H Respiratory Rate 16 Blood Pressure Pulse Oximetry 98 99 04/11/18 17:23 04/11/18 19:00 04/11/18 20:58 Temperature 99.0 F 98.5 F Pulse Rate 130 H 128 H Respiratory Rate 16 17 16 Blood Pressure 121/50 L 111/76 Pulse Oximetry 98 99 99 04/11/18 23:00 04/12/18 00:45 04/12/18 03:00 Temperature 99.3 F 98.1 F Pulse Rate 95 H 93 H Respiratory Rate 16 16 16 Blood Pressure 143/66 H 139/75 Pulse Oximetry 98 99 99 04/12/18 04:38 04/12/18 04:59 04/12/18 08:10 Temperature Pulse Rate 102 H Respiratory Rate 16 16 16 Blood Pressure Pulse Oximetry 99 99 GENERAL: lethargic bu awake, follows commands SKIN: Warm and dry. dressing in place to chest / abd incisions intact and well approximated , OANH drains x 2 to abdomen HEAD: Normocephalic. EYES: No scleral icterus. No injection or drainage. NECK: Supple, trachea midline. No JVD or lymphadenopathy. CARDIOVASCULAR: irregular rate and rhythm 3/6 SM no gallops, or rubs. RESPIRATORY: Breath sounds equal bilaterally. No accessory muscle use. GASTROINTESTINAL: slightly distended , + bowel sounds, NG to low intermittent suction MUSCULOSKELETAL: No cyanosis, mild general edema BACK: Nontender without obvious deformity. No CVA tenderness. Labs: Laboratory Results - last 12 hr 04/11/18 04/11/18 04/11/18 21:27 22:18 23:24 WBC RBC Hgb Hct MCV MCH MCHC RDW Plt Count MPV Prelim Diff (Auto) Neut % (Auto) Lymph % (Auto) [place] % (Auto) Eos % (Auto) Baso % (Auto) Neut # (Auto) Lymph # (Auto) [place] # (Auto) Eos # (Auto) Baso # (Auto) WBC Differential Seg Neuts % (Manual) Band Neuts % (Manual) Lymphocytes % (Manual) Monocytes % (Manual) Metamyelocytes % (Man) Abs Neuts (Manual) Differential Comment Toxic Granulation Platelet Estimate Platelet Morphology RBC Morphology APTT Sodium Potassium Chloride Carbon Dioxide Anion Gap BUN Creatinine Estimated GFR POC Glucose 67 L 133 H 83 Random Glucose Calcium Prot Corrected Calcium Phosphorus Magnesium Total Bilirubin AST ALT Alkaline Phosphatase Total Protein Albumin 04/12/18 04/12/18 04/12/18 01:43 01:43 01:43 WBC 28.4 H RBC 3.29 L Hgb 9.6 L Hct 29.0 L MCV 88.1 MCH 29.2 MCHC 33.1 RDW 16.0 Plt Count 226 MPV 8.2 Prelim Diff (Auto) Slide review pending Neut % (Auto) 90.0 H Lymph % (Auto) 2.7 L [place] % (Auto) 6.8 Eos % (Auto) 0.4 Baso % (Auto) 0.1 Neut # (Auto) 25.5 H Lymph # (Auto) 0.8 L [place] # (Auto) 1.9 H Eos # (Auto) 0.1 Baso # (Auto) 0.0 WBC Differential Manual diff final Seg Neuts % (Manual) 68 Band Neuts % (Manual) 23 H Lymphocytes % (Manual) 3 L Monocytes % (Manual) 5 Metamyelocytes % (Man) 1 Abs Neuts (Manual) 26.1 H Differential Comment . Toxic Granulation 1+ H Platelet Estimate Normal Platelet Morphology Normal RBC Morphology Normal APTT 194.2 H* D Sodium 147 H Potassium 4.3 D Chloride 116 H Carbon Dioxide 20.7 L Anion Gap 10 BUN 36 H Creatinine 1.17 H Estimated GFR 45 L POC Glucose Random Glucose 78 Calcium 7.4 L* Prot Corrected Calcium 8.6 Phosphorus 3.7 Magnesium 2.5 Total Bilirubin 0.6 AST 171 H ALT 124 H Alkaline Phosphatase 94 Total Protein 5.0 L Albumin 1.5 L 04/12/18 04/12/18 04/12/18 04:51 05:20 07:52 WBC RBC Hgb Hct MCV MCH MCHC RDW Plt Count MPV Prelim Diff (Auto) Neut % (Auto) Lymph % (Auto) [place] % (Auto) Eos % (Auto) Baso % (Auto) Neut # (Auto) Lymph # (Auto) [place] # (Auto) Eos # (Auto) Baso # (Auto) WBC Differential Seg Neuts % (Manual) Band Neuts % (Manual) Lymphocytes % (Manual) Monocytes % (Manual) Metamyelocytes % (Man) Abs Neuts (Manual) Differential Comment Toxic Granulation Platelet Estimate Platelet Morphology RBC Morphology APTT 68.5 H D Sodium Potassium Chloride Carbon Dioxide Anion Gap BUN Creatinine Estimated GFR POC Glucose 72 73 Random Glucose Calcium Prot Corrected Calcium Phosphorus Magnesium Total Bilirubin AST ALT Alkaline Phosphatase Total Protein Albumin Result Diagrams: 04/12/18 01:43 04/12/18 01:43 Telemetry: Afib - Plan (1) Severe aortic stenosis Plan: will need planned TAVR after discharge (2) Coronary artery disease involving [place] coronary artery Plan: ASA, consider low dose BB was on verapamil at home (3) Congestive heart failure (CHF) Plan: gentle diuresis (4) Atrial fibrillation Plan: s/p atrial appendage excision resume Coumadin / when cleared by general surgery (5) COPD (chronic obstructive pulmonary disease) Plan: nebs ezpap and acapella (6) S/P CABG (coronary artery bypass graft) Plan: ASA, resume home med crestor pulm toileting , nebs ezpap, acapella OOB ambulate eval for rehab at discharge (7) S/P exploratory laparotomy Plan: general surgery following (10) Respiratory failure requiring intubation Plan: vent weaning as per CCM (11) Leukocytosis Plan: hernandes -culture ABX per ID DC CVC line (12) Acute renal failure Plan: nephro following
[2018-04-12 09:26] LABS: ABG Base Excess -3.5 mmol/L (-2-2); ABG PCO2 37 mmHg (38-42); ABG PO2 80 mmHG (61-120)
--- NOTE | 2018-04-12 09:26 | P.PNCC ---
Subjective Subjective Remarks/Hospital Course: This is a 77-year-old female. Date of admission 04/04/2018. Date of consultation 04/06/2018. Patient has no history of aortic stenosis, coronary disease, hypertension, hyperlipidemia, gastroesophageal reflux disease, hypothyroidism and depression. On 04/04, patient had a two-vessel CABG ZAPATA to LAD, reverse saphenous vein graft to OM of left circumflex with left EVH and CLARA excision. Without complications. Today, patient this morning was in atrial fibrillation with rapid ventricular response. Received 150 mg IV amiodarone and started on oral amiodarone 400 mg along with 25 mg of oral metoprolol tartrate.. She became bradycardic this afternoon and we are asked to evaluate the patient. She is received 2 g of calcium chloride and is currently been started on dopamine drip. Her heart rate and blood pressure immediately improved after the infusion of calcium chloride. In reviewing laboratories, potassium magnesium are within normal limits. She does have a new leukocytosis of 19,000. She denies shortness of breath. She is more confused likely due to hypoperfusion 04/07 Patient is lying in bed in NAD. Feeling nauseas, denies any abdominal pain. 04/08 Patient was given Lopressor, Cardizem and Digoxin overnight for tachycardic became hypotensive and started on Neosyn ( current MAP 81mmHg). Renal function worse today with Cr: 2.22 from 1.76 04/09 Patient s/p Laparoscopic partial reduction of paraesophageal hernia and wedge resection of greater curvature of stomach. Remains intubated postop on Levophed 3 mics, sedated with Fentanyl and on is Precedex drip. s/p [id number] PRBC overnight Hgb 9.6 this morning from 6.8 04/10 Patient remains intubated and sedated. On Levophed 2 mics. :100.4 at 4am, renal function is improving with Cr: 1.40 from 1.99 04/11 Patient remains intubated off Levophed. On Fentanyl infusion for sedation. Renal function is improving with Cr:1.18 from 1.4. Afebrile. 04/12 Patient is awake and alert on CPAP with PS 10, PEEP:5 and FIO2 35%, s/p CT guided right thoracentesis yesterday with removal 550ml. Afebrile. On Heparin drip. Objective Vital Signs / I&O: Vital Signs 04/11/18 09:13 04/11/18 09:14 04/11/18 11:00 Temperature 98.7 F Pulse Rate 107 H 138 H Respiratory Rate 16 16 16 Blood Pressure 117/65 Pulse Oximetry 98 98 04/11/18 13:23 04/11/18 15:00 04/11/18 17:14 Temperature Pulse Rate 122 H Respiratory Rate 16 Blood Pressure Pulse Oximetry 98 99 04/11/18 17:23 04/11/18 19:00 04/11/18 20:58 Temperature 99.0 F 98.5 F Pulse Rate 130 H 128 H Respiratory Rate 16 17 16 Blood Pressure 121/50 L 111/76 Pulse Oximetry 98 99 99 04/11/18 23:00 04/12/18 00:45 04/12/18 03:00 Temperature 99.3 F 98.1 F Pulse Rate 95 H 93 H Respiratory Rate 16 16 16 Blood Pressure 143/66 H 139/75 Pulse Oximetry 98 99 99 04/12/18 04:38 04/12/18 04:59 04/12/18 08:10 Temperature Pulse Rate 102 H Respiratory Rate 16 16 16 Blood Pressure Pulse Oximetry 99 99 Intake & Output 04/11/18 04/12/18 04/12/18 18:59 06:59 18:59 Intake Total 850 / 850 950 / 950 150 / 150 Output Total 820 / 820 510 / 510 Balance 30 / 30 440 / 440 150 / 150 Weight 95 kg Intake: IV 350 / 350 450 / 450 150 / 150 Diflucan 200 mg Premix Bag 100 100 / 100 ML @ 100 mls/hr IV.SIG Q24H YASH Rx#:[id number] Zosyn 3.375 GM Premix 50 ML @ 50 / 50 50 / 50 50 / 50 200 mls/hr IV.SIG Q6H YASH Rx#: [id number] KCl 20 mEq Premix Inj 20 meq In 200 / 200 200 / 200 100 ml @ 50 mls/hr IV.SIG Q2H PRN Rx#:[id number] Flagyl 500 MG Inj 100 ML @ 100 100 / 100 100 / 100 100 / 100 mls/hr IV.SIG Q8H YASH Rx#: [id number] Oral 0 / 0 0 / 0 Other 500 / 500 500 / 500 Output: Urine Amount (Catheter) 775 / 775 400 / 400 Indwelling Urethral Catheter 775 / 775 400 / 400 Gastric Drainage 50 / 50 Right Nare Nasogastric Tube 50 / 50 Wound Drainage 45 / 45 60 / 60 # 1 Right Anterior Abdomen 30 / 30 50 / 50 # 2 Left Anterior Abdomen 15 / 15 Other: # Bowel Movements 0 0 Result Diagrams: 04/12/18 01:43 04/12/18 01:43 Other Results: Laboratory Results - last 12 hr 04/11/18 04/11/18 04/11/18 21:27 22:18 23:24 WBC RBC Hgb Hct MCV MCH MCHC RDW Plt Count MPV Prelim Diff (Auto) Neut % (Auto) Lymph % (Auto) [facility] % (Auto) Eos % (Auto) Baso % (Auto) Neut # (Auto) Lymph # (Auto) [facility] # (Auto) Eos # (Auto) Baso # (Auto) WBC Differential Seg Neuts % (Manual) Band Neuts % (Manual) Lymphocytes % (Manual) Monocytes % (Manual) Metamyelocytes % (Man) Abs Neuts (Manual) Differential Comment Toxic Granulation Platelet Estimate Platelet Morphology RBC Morphology APTT Sodium Potassium Chloride Carbon Dioxide Anion Gap BUN Creatinine Estimated GFR POC Glucose 67 L 133 H 83 Random Glucose Calcium Prot Corrected Calcium Phosphorus Magnesium Total Bilirubin AST ALT Alkaline Phosphatase Total Protein Albumin 04/12/18 04/12/18 04/12/18 01:43 01:43 01:43 WBC 28.4 H RBC 3.29 L Hgb 9.6 L Hct 29.0 L MCV 88.1 MCH 29.2 MCHC 33.1 RDW 16.0 Plt Count 226 MPV 8.2 Prelim Diff (Auto) Slide review pending Neut % (Auto) 90.0 H Lymph % (Auto) 2.[address] [facility] % (Auto) 6.8 Eos % (Auto) 0.4 Baso % (Auto) 0.1 Neut # (Auto) 25.5 H Lymph # (Auto) 0.[address] [facility] # (Auto) 1.9 H Eos # (Auto) 0.1 Baso # (Auto) 0.0 WBC Differential Manual diff final Seg Neuts % (Manual) 68 Band Neuts % (Manual) 23 H Lymphocytes % (Manual) 3 L Monocytes % (Manual) 5 Metamyelocytes % (Man) 1 Abs Neuts (Manual) 26.1 H Differential Comment . Toxic Granulation 1+ H Platelet Estimate Normal Platelet Morphology Normal RBC Morphology Normal APTT 194.2 H* D Sodium 147 H Potassium 4.3 D Chloride 116 H Carbon Dioxide 20.7 L Anion Gap 10 BUN 36 H Creatinine 1.17 H Estimated GFR 45 L POC Glucose Random Glucose 78 Calcium 7.4 L* Prot Corrected Calcium 8.6 Phosphorus 3.7 Magnesium 2.5 Total Bilirubin 0.6 AST 171 H ALT 124 H Alkaline Phosphatase 94 Total Protein 5.0 L Albumin 1.5 L 04/12/18 04/12/18 04/12/18 04:51 05:20 07:52 WBC RBC Hgb Hct MCV MCH MCHC RDW Plt Count MPV Prelim Diff (Auto) Neut % (Auto) Lymph % (Auto) [facility] % (Auto) Eos % (Auto) Baso % (Auto) Neut # (Auto) Lymph # (Auto) [facility] # (Auto) Eos # (Auto) Baso # (Auto) WBC Differential Seg Neuts % (Manual) Band Neuts % (Manual) Lymphocytes % (Manual) Monocytes % (Manual) Metamyelocytes % (Man) Abs Neuts (Manual) Differential Comment Toxic Granulation Platelet Estimate Platelet Morphology RBC Morphology APTT 68.5 H D Sodium Potassium Chloride Carbon Dioxide Anion Gap BUN Creatinine Estimated GFR POC Glucose 72 73 Random Glucose Calcium Prot Corrected Calcium Phosphorus Magnesium Total Bilirubin AST ALT Alkaline Phosphatase Total Protein Albumin Imaging: Laboratory Results - last 12 hr 04/11/18 04/11/18 04/11/18 21:27 22:18 23:24 WBC RBC Hgb Hct MCV MCH MCHC RDW Plt Count MPV Prelim Diff (Auto) Neut % (Auto) Lymph % (Auto) [facility] % (Auto) Eos % (Auto) Baso % (Auto) Neut # (Auto) Lymph # (Auto) [facility] # (Auto) Eos # (Auto) Baso # (Auto) WBC Differential Seg Neuts % (Manual) Band Neuts % (Manual) Lymphocytes % (Manual) Monocytes % (Manual) Metamyelocytes % (Man) Abs Neuts (Manual) Differential Comment Toxic Granulation Platelet Estimate Platelet Morphology RBC Morphology APTT Sodium Potassium Chloride Carbon Dioxide Anion Gap BUN Creatinine Estimated GFR POC Glucose 67 L 133 H 83 Random Glucose Calcium Prot Corrected Calcium Phosphorus Magnesium Total Bilirubin AST ALT Alkaline Phosphatase Total Protein Albumin 04/12/18 04/12/18 04/12/18 01:43 01:43 01:43 WBC 28.4 H RBC 3.29 L Hgb 9.6 L Hct 29.0 L MCV 88.1 MCH 29.2 MCHC 33.1 RDW 16.0 Plt Count 226 MPV 8.2 Prelim Diff (Auto) Slide review pending Neut % (Auto) 90.0 H Lymph % (Auto) 2.[address] [facility] % (Auto) 6.8 Eos % (Auto) 0.4 Baso % (Auto) 0.1 Neut # (Auto) 25.5 H Lymph # (Auto) 0.[address] # (Auto) 1.9 H Eos # (Auto) 0.1 Baso # (Auto) 0.0 WBC Differential Manual diff final Seg Neuts % (Manual) 68 Band Neuts % (Manual) 23 H Lymphocytes % (Manual) 3 L Monocytes % (Manual) 5 Metamyelocytes % (Man) 1 Abs Neuts (Manual) 26.1 H Differential Comment . Toxic Granulation 1+ H Platelet Estimate Normal Platelet Morphology Normal RBC Morphology Normal APTT 194.2 H* D Sodium 147 H Potassium 4.3 D Chloride 116 H Carbon Dioxide 20.7 L Anion Gap 10 BUN 36 H Creatinine 1.17 H Estimated GFR 45 L POC Glucose Random Glucose 78 Calcium 7.4 L* Prot Corrected Calcium 8.6 Phosphorus 3.7 Magnesium 2.5 Total Bilirubin 0.6 AST 171 H ALT 124 H Alkaline Phosphatase 94 Total Protein 5.0 L Albumin 1.5 L 04/12/18 04/12/18 04/12/18 04:51 05:20 07:52 WBC RBC Hgb Hct MCV MCH MCHC RDW Plt Count MPV Prelim Diff (Auto) Neut % (Auto) Lymph % (Auto) [facility] % (Auto) Eos % (Auto) Baso % (Auto) Neut # (Auto) Lymph # (Auto) [facility] # (Auto) Eos # (Auto) Baso # (Auto) WBC Differential Seg Neuts % (Manual) Band Neuts % (Manual) Lymphocytes % (Manual) Monocytes % (Manual) Metamyelocytes % (Man) Abs Neuts (Manual) Differential Comment Toxic Granulation Platelet Estimate Platelet Morphology RBC Morphology APTT 68.5 H D Sodium Potassium Chloride Carbon Dioxide Anion Gap BUN Creatinine Estimated GFR POC Glucose 72 73 Random Glucose Calcium Prot Corrected Calcium Phosphorus Magnesium Total Bilirubin AST ALT Alkaline Phosphatase Total Protein Albumin Objective Remarks: GENERAL: Patient is 77 yo lying in bed intubated SKIN: Warm and dry. HEAD: Normocephalic. EYES: No scleral icterus. No injection or drainage. NECK: Supple, trachea midline. No JVD or lymphadenopathy. CARDIOVASCULAR: Tachycardic without murmurs, gallops, or rubs. RESPIRATORY: Breath sounds equal bilaterally. No accessory muscle use. GASTROINTESTINAL: Abdomen soft, non-tender, nondistended. MUSCULOSKELETAL: No cyanosis, or edema. Neuro: Awake and alert Assessment and Plan - Assessment and Plan Plan: Neuro/Psych: Depressive disorder NOS History of TIA Awake and alert off sedation. Currently on paroxetine 10 mg daily for depression. CV: Postoperative CABG x2 ZAPATA to LAD, reverse saphenous vein graft to OM with left EVH and CLARA excision -Dr. Warner Atrial fibrillation Essential hypertension by history Hyperlipidemia Coronary artery disease status post PTCA left anterior descending proximal monitor HR and BP keep MAP>65mmHG Lactic acid 2.0 Cardiac catheterization 417 revealed left ear 0.48 cm area. EF 55-60%. Moderate aortic regurgitation. On rosuvastatin 10 mg daily at home. Noted allergies to atorvastatin simvastatin Continue aspirin 81 mg daily Cards is following- Dr. Valle Resp: Obstructive sleep apnea Continue with vent support keep sats> 92% Bronchodilators, ICU vent bundle. SBT daily as jose s/p CT guided right thoracentesis with removal 550 ml pleural fluid Exudative effusion by LDH criteria likely 2nd diuretics. GI: s/p Laparoscopic partial reduction of paraesophageal hernia, wedge resection of greater curvature of stomach 04/08 Diverticulosis Gastroesophageal reflux disease Hiatal hernia Pantoprazole for GI prophylaxis Docusate sodium/senna 1 tablet twice daily for hours along with polythene glycol 17 g daily KUB /6: Nonspecific, nonobstructive bowel gas pattern which may represent a mild ileus KUB abdomen 2 : Nonspecific bowel gas pattern with scattered small and large bowel gas. 04/08 CT abd/pelvis- Prominent amount of free air and free fluid in the upper abdomen and within a large hiatal hernia. A large portion of the stomach is in a hiatal hernia. Most likely etiology for the findings is a perforated gastric ulcer. 04/08 s/p Laparoscopic partial reduction of paraesophageal hernia, wedge resection of greater curvature of stomach, washout, drain placement performed. Monitor OANH drainage- Surgery- Dr. Craig. Endo: Hypothyroidism Currently on levothyroxine 100 mcg p.o. daily TSH:0.72 Sliding scale insulin with aspart insulin Renal: Acute kidney injury Monitor renal function, I/O's, electrolytes replacement per protocol Free water 250ml Q6, change Lasix 40mg IV BID Renal US: No hydronephrosis Heme: Leukocytosis Normocytic anemia Chronic warfarin use Monitor CBC, Coags daily.on Heparin drip per cards s/p transfusion 2u PRBC overnight 04/09 ID: On empiric abx ( Zosyn, Micafungin) Monitor for signs of infections ( fever, WBC ) Follow up BC 04/08: Yeast Optho eval r/o endophthalmitis Check C-diff PCR ID is following MSK: Elevated BMI Osteoporosis/osteoarthritis Lumbar radiculopathy Physical therapy evaluate and treat Access -Utilize peripheral IV. Prophylaxis -GI -pantoprazole -DVT-SCD/pharmacological prophylaxis- Heparin dip Level 3
[2018-04-12] MEDS: Pantoprazole Inj 40 MG Vial IV.PUSH SCH ×2 (11:39→22:55)
[2018-04-12] MEDS ORDERED: Dexmedetomidine Inj 200 MCG in Sodium Chlor 0.9% Inj 48 ML IV.CONT PRN (12:07)
--- NOTE | 2018-04-12 12:51 | P.PNGS ---
Subjective Interval history: WBC now 28. Remains ventilated. Physical Exam Vital signs: Vital Signs 04/11/18 13:23 04/11/18 15:00 04/11/18 17:14 Temperature Pulse Rate 122 H Respiratory Rate 16 Blood Pressure Pulse Oximetry 98 99 04/11/18 17:23 04/11/18 19:00 04/11/18 20:58 Temperature 99.0 F 98.5 F Pulse Rate 130 H 128 H Respiratory Rate 16 17 16 Blood Pressure 121/50 L 111/76 Pulse Oximetry 98 99 99 04/11/18 23:00 04/12/18 00:45 04/12/18 03:00 Temperature 99.3 F 98.1 F Pulse Rate 95 H 93 H Respiratory Rate 16 16 16 Blood Pressure 143/66 H 139/75 Pulse Oximetry 98 99 99 04/12/18 04:38 04/12/18 04:59 04/12/18 07:00 Temperature 99.2 F Pulse Rate 102 H 86 Respiratory Rate 16 16 16 Blood Pressure 122/48 L Pulse Oximetry 99 98 04/12/18 08:10 04/12/18 10:39 Temperature 98.3 F Pulse Rate 108 H Respiratory Rate 16 16 Blood Pressure 142/64 H Pulse Oximetry 99 98 Intake & Output 04/11/18 04/12/18 04/12/18 18:59 06:59 18:59 Intake Total 850 / 850 950 / 950 400 / 400 Output Total 820 / 820 510 / 510 Balance 30 / 30 440 / 440 400 / 400 Weight 95 kg Intake: IV 350 / 350 450 / 450 400 / 400 Precedex Inj 1,000 MCG In NS 200 / 200 Inj 240 ML @ 0.2 MCG/KG/HR 4.2 mls/hr IV.CONT TITRATE PRN Rx#: [id number] Diflucan 200 mg Premix Bag 100 100 / 100 ML @ 100 mls/hr IV.SIG Q24H YASH Rx#:[id number] Zosyn 3.375 GM Premix 50 ML @ 50 / 50 50 / 50 100 / 100 200 mls/hr IV.SIG Q6H YASH Rx#: [id number] KCl 20 mEq Premix Inj 20 meq In 200 / 200 200 / 200 100 ml @ 50 mls/hr IV.SIG Q2H PRN Rx#:[id number] Flagyl 500 MG Inj 100 ML @ 100 100 / 100 100 / 100 100 / 100 mls/hr IV.SIG Q8H YASH Rx#: [id number] Oral 0 / 0 0 / 0 Other 500 / 500 500 / 500 Output: Urine Amount (Catheter) 775 / 775 400 / 400 Indwelling Urethral Catheter 775 / 775 400 / 400 Gastric Drainage 50 / 50 Right Nare Nasogastric Tube 50 / 50 Wound Drainage 45 / 45 60 / 60 # 1 Right Anterior Abdomen 30 / 30 50 / 50 # 2 Left Anterior Abdomen 15 / 15 10 / 10 Other: # Bowel Movements 0 0 Narrative: Ventilated Alert Abd: OANH drains serosanguinous. NG to suction. - Urinary Catheter Management Indwelling Temp Sensing Catheter Cath placed during this visit: yes Urethral indwelling: No Reason for continuing: Hourly intake/output Insertion date: 04/04/18 Insertion time: 07:52 Indwelling Urethral Catheter Cath placed during this visit: yes Reason for continuing: Hourly intake/output Insertion date: 04/08/18 Insertion time: 16:51 Results - Labs 04/12/18 01:43 04/12/18 01:43 Laboratory Results - last 24 hr 04/11/18 04/11/18 04/11/18 16:10 16:10 16:57 WBC RBC Hgb Hct MCV MCH MCHC RDW Plt Count MPV Prelim Diff (Auto) Neut % (Auto) Lymph % (Auto) [place] % (Auto) Eos % (Auto) Baso % (Auto) Neut # (Auto) Lymph # (Auto) [place] # (Auto) Eos # (Auto) Baso # (Auto) WBC Differential Seg Neuts % (Manual) Band Neuts % (Manual) Lymphocytes % (Manual) Monocytes % (Manual) Metamyelocytes % (Man) Abs Neuts (Manual) Differential Comment Toxic Granulation Platelet Estimate Platelet Morphology RBC Morphology PT INR APTT Puncture Site Patient Temperature O2 Saturation ABG pH ABG pCO2 ABG pO2 ABG HCO3 ABG O2 Content ABG Base Excess ABG Methemoglobin Adrien Test Hemoglobin Carboxyhemoglobin O2 Delivery Device Vent Setting Inspired O2 Critical Value Sodium Potassium Chloride Carbon Dioxide Anion Gap BUN Creatinine Estimated GFR POC Glucose Random Glucose Calcium Prot Corrected Calcium Phosphorus Magnesium Total Bilirubin AST ALT Alkaline Phosphatase Total Protein Albumin Urine Color Yellow Urine Clarity Turbid H Urine pH 5.0 Ur Specific [place] 1.013 Urine Protein Negative Urine Glucose (UA) Negative Urine Ketones Negative Urine Occult Blood Small H Urine Nitrate Negative Urine Bilirubin Negative Urine Urobilinogen Less than 2 Ur Leukocyte Esterase Trace H Urine RBC Less than 1 Urine WBC 2 Ur Squamous Epith Cells 1 Uric Acid Crystals Many H Hyaline Casts 2 Granular Casts 2 Urine Mucus Few H Micro UA Comment Culture not ind Ur Microscopic Review Not Reportable Urine Culture Comments Culture not ind Pleural pH 8.0 Pleural RBC 78216 H Pleural Nuc Cells 1198 H Pleural Neutrophils 92 Pleural Lymphocytes 4 Pleural Monocytes 4 Pleural Total Protein 2.3 Pleural LDH 545 Pleural Glucose 68 04/11/18 04/11/18 04/11/18 17:50 18:04 21:27 WBC RBC Hgb Hct MCV MCH MCHC RDW Plt Count MPV Prelim Diff (Auto) Neut % (Auto) Lymph % (Auto) [place] % (Auto) Eos % (Auto) Baso % (Auto) Neut # (Auto) Lymph # (Auto) [place] # (Auto) Eos # (Auto) Baso # (Auto) WBC Differential Seg Neuts % (Manual) Band Neuts % (Manual) Lymphocytes % (Manual) Monocytes % (Manual) Metamyelocytes % (Man) Abs Neuts (Manual) Differential Comment Toxic Granulation Platelet Estimate Platelet Morphology RBC Morphology PT 16.0 H INR 1.6 APTT 34.2 H 57.8 H D Puncture Site Patient Temperature O2 Saturation ABG pH ABG pCO2 ABG pO2 ABG HCO3 ABG O2 Content ABG Base Excess ABG Methemoglobin Adrien Test Hemoglobin Carboxyhemoglobin O2 Delivery Device Vent Setting Inspired O2 Critical Value Sodium Potassium Chloride Carbon Dioxide Anion Gap BUN Creatinine Estimated GFR POC Glucose 67 L Random Glucose Calcium Prot Corrected Calcium Phosphorus Magnesium Total Bilirubin AST ALT Alkaline Phosphatase Total Protein Albumin Urine Color Urine Clarity Urine pH Ur Specific [place] Urine Protein Urine Glucose (UA) Urine Ketones Urine Occult Blood Urine Nitrate Urine Bilirubin Urine Urobilinogen Ur Leukocyte Esterase Urine RBC Urine WBC Ur Squamous Epith Cells Uric Acid Crystals Hyaline Casts Granular Casts Urine Mucus Micro UA Comment Ur Microscopic Review Urine Culture Comments Pleural pH Pleural RBC Pleural Nuc Cells Pleural Neutrophils Pleural Lymphocytes Pleural Monocytes Pleural Total Protein Pleural LDH Pleural Glucose 04/11/18 04/11/18 04/12/18 22:18 23:24 01:43 WBC 28.4 H RBC 3.29 L Hgb 9.6 L Hct 29.0 L MCV 88.1 MCH 29.2 MCHC 33.1 RDW 16.0 Plt Count 226 MPV 8.2 Prelim Diff (Auto) Slide review pending Neut % (Auto) 90.0 H Lymph % (Auto) 2.7 L [place] % (Auto) 6.8 Eos % (Auto) 0.4 Baso % (Auto) 0.1 Neut # (Auto) 25.5 H Lymph # (Auto) 0.8 L [place] # (Auto) 1.9 H Eos # (Auto) 0.1 Baso # (Auto) 0.0 WBC Differential Manual diff final Seg Neuts % (Manual) 68 Band Neuts % (Manual) 23 H Lymphocytes % (Manual) 3 L Monocytes % (Manual) 5 Metamyelocytes % (Man) 1 Abs Neuts (Manual) 26.1 H Differential Comment . Toxic Granulation 1+ H Platelet Estimate Normal Platelet Morphology Normal RBC Morphology Normal PT INR APTT Puncture Site Patient Temperature O2 Saturation ABG pH ABG pCO2 ABG pO2 ABG HCO3 ABG O2 Content ABG Base Excess ABG Methemoglobin Adrien Test Hemoglobin Carboxyhemoglobin O2 Delivery Device Vent Setting Inspired O2 Critical Value Sodium Potassium Chloride Carbon Dioxide Anion Gap BUN Creatinine Estimated GFR POC Glucose 133 H 83 Random Glucose Calcium Prot Corrected Calcium Phosphorus Magnesium Total Bilirubin AST ALT Alkaline Phosphatase Total Protein Albumin Urine Color Urine Clarity Urine pH Ur Specific [place] Urine Protein Urine Glucose (UA) Urine Ketones Urine Occult Blood Urine Nitrate Urine Bilirubin Urine Urobilinogen Ur Leukocyte Esterase Urine RBC Urine WBC Ur Squamous Epith Cells Uric Acid Crystals Hyaline Casts Granular Casts Urine Mucus Micro UA Comment Ur Microscopic Review Urine Culture Comments Pleural pH Pleural RBC Pleural Nuc Cells Pleural Neutrophils Pleural Lymphocytes Pleural Monocytes Pleural Total Protein Pleural LDH Pleural Glucose 04/12/18 04/12/18 04/12/18 01:43 01:43 04:51 WBC RBC Hgb Hct MCV MCH MCHC RDW Plt Count MPV Prelim Diff (Auto) Neut % (Auto) Lymph % (Auto) [place] % (Auto) Eos % (Auto) Baso % (Auto) Neut # (Auto) Lymph # (Auto) [place] # (Auto) Eos # (Auto) Baso # (Auto) WBC Differential Seg Neuts % (Manual) Band Neuts % (Manual) Lymphocytes % (Manual) Monocytes % (Manual) Metamyelocytes % (Man) Abs Neuts (Manual) Differential Comment Toxic Granulation Platelet Estimate Platelet Morphology RBC Morphology PT INR APTT 194.2 H* D Puncture Site Patient Temperature O2 Saturation ABG pH ABG pCO2 ABG pO2 ABG HCO3 ABG O2 Content ABG Base Excess ABG Methemoglobin Adrien Test Hemoglobin Carboxyhemoglobin O2 Delivery Device Vent Setting Inspired O2 Critical Value Sodium 147 H Potassium 4.3 D Chloride 116 H Carbon Dioxide 20.7 L Anion Gap 10 BUN 36 H Creatinine 1.17 H Estimated GFR 45 L POC Glucose 72 Random Glucose 78 Calcium 7.4 L* Prot Corrected Calcium 8.6 Phosphorus 3.7 Magnesium 2.5 Total Bilirubin 0.6 AST 171 H ALT 124 H Alkaline Phosphatase 94 Total Protein 5.0 L Albumin 1.5 L Urine Color Urine Clarity Urine pH Ur Specific [place] Urine Protein Urine Glucose (UA) Urine Ketones Urine Occult Blood Urine Nitrate Urine Bilirubin Urine Urobilinogen Ur Leukocyte Esterase Urine RBC Urine WBC Ur Squamous Epith Cells Uric Acid Crystals Hyaline Casts Granular Casts Urine Mucus Micro UA Comment Ur Microscopic Review Urine Culture Comments Pleural pH Pleural RBC Pleural Nuc Cells Pleural Neutrophils Pleural Lymphocytes Pleural Monocytes Pleural Total Protein Pleural LDH Pleural Glucose 04/12/18 04/12/18 04/12/18 05:20 07:52 09:05 WBC RBC Hgb Hct MCV MCH MCHC RDW Plt Count MPV Prelim Diff (Auto) Neut % (Auto) Lymph % (Auto) [place] % (Auto) Eos % (Auto) Baso % (Auto) Neut # (Auto) Lymph # (Auto) [place] # (Auto) Eos # (Auto) Baso # (Auto) WBC Differential Seg Neuts % (Manual) Band Neuts % (Manual) Lymphocytes % (Manual) Monocytes % (Manual) Metamyelocytes % (Man) Abs Neuts (Manual) Differential Comment Toxic Granulation Platelet Estimate Platelet Morphology RBC Morphology PT INR APTT 68.5 H D Puncture Site Right radial Patient Temperature 98.6 O2 Saturation 93 ABG pH 7.37 L ABG pCO2 37 L ABG pO2 80 ABG HCO3 21 L ABG O2 Content 14.3 ABG Base Excess -3.5 L ABG Methemoglobin 1.5 Adrien Test Present Hemoglobin 10.9 L Carboxyhemoglobin 0.8 O2 Delivery Device Ventilator Vent Setting [id number] Inspired O2 40 Critical Value No Sodium Potassium Chloride Carbon Dioxide Anion Gap BUN Creatinine Estimated GFR POC Glucose 73 Random Glucose Calcium Prot Corrected Calcium Phosphorus Magnesium Total Bilirubin AST ALT Alkaline Phosphatase Total Protein Albumin Urine Color Urine Clarity Urine pH Ur Specific [place] Urine Protein Urine Glucose (UA) Urine Ketones Urine Occult Blood Urine Nitrate Urine Bilirubin Urine Urobilinogen Ur Leukocyte Esterase Urine RBC Urine WBC Ur Squamous Epith Cells Uric Acid Crystals Hyaline Casts Granular Casts Urine Mucus Micro UA Comment Ur Microscopic Review Urine Culture Comments Pleural pH Pleural RBC Pleural Nuc Cells Pleural Neutrophils Pleural Lymphocytes Pleural Monocytes Pleural Total Protein Pleural LDH Pleural Glucose 04/12/18 11:44 WBC RBC Hgb Hct MCV MCH MCHC RDW Plt Count MPV Prelim Diff (Auto) Neut % (Auto) Lymph % (Auto) [place] % (Auto) Eos % (Auto) Baso % (Auto) Neut # (Auto) Lymph # (Auto) [place] # (Auto) Eos # (Auto) Baso # (Auto) WBC Differential Seg Neuts % (Manual) Band Neuts % (Manual) Lymphocytes % (Manual) Monocytes % (Manual) Metamyelocytes % (Man) Abs Neuts (Manual) Differential Comment Toxic Granulation Platelet Estimate Platelet Morphology RBC Morphology PT INR APTT Puncture Site Patient Temperature O2 Saturation ABG pH ABG pCO2 ABG pO2 ABG HCO3 ABG O2 Content ABG Base Excess ABG Methemoglobin Adrien Test Hemoglobin Carboxyhemoglobin O2 Delivery Device Vent Setting Inspired O2 Critical Value Sodium Potassium Chloride Carbon Dioxide Anion Gap BUN Creatinine Estimated GFR POC Glucose 65 L Random Glucose Calcium Prot Corrected Calcium Phosphorus Magnesium Total Bilirubin AST ALT Alkaline Phosphatase Total Protein Albumin Urine Color Urine Clarity Urine pH Ur Specific [place] Urine Protein Urine Glucose (UA) Urine Ketones Urine Occult Blood Urine Nitrate Urine Bilirubin Urine Urobilinogen Ur Leukocyte Esterase Urine RBC Urine WBC Ur Squamous Epith Cells Uric Acid Crystals Hyaline Casts Granular Casts Urine Mucus Micro UA Comment Ur Microscopic Review Urine Culture Comments Pleural pH Pleural RBC Pleural Nuc Cells Pleural Neutrophils Pleural Lymphocytes Pleural Monocytes Pleural Total Protein Pleural LDH Pleural Glucose - Imaging Imaging: ITS Impressions Abdomen/Bladder Ultrasound 04/08/18 00:00 CONCLUSION: Kidneys within normal limits. Right pleural effusion noted. Abdomen/Pelvis CT 04/08/18 10:09 CONCLUSION: 1. Prominent amount of free air and free fluid in the upper abdomen and within a large hiatal hernia. A large portion of the stomach is in a hiatal hernia. Most likely etiology for the findings is a perforated gastric ulcer. Findings discussed with the patient's nurse. 2. Distended gallbladder. Chest CT 04/08/18 10:09 CONCLUSION: 1. Large hiatal hernia containing a large portion of the stomach with moderate amount of free air in the hiatal hernia and in the upper abdomen. Distal gastric wall thickening and extraluminal fluid adjacent to the distal stomach. Most likely etiology for the findings is a perforated gastric ulcer. Free fluid is also seen in the upper abdomen. 2. New bilateral lower lobe atelectasis/consolidation and small bilateral pleural effusions. Chest Ultrasound 04/11/18 00:00 CONCLUSION: 1. Left pleural effusion and marked on the skin. Thoracentesis CT 04/11/18 00:00 CONCLUSION: 1. Uncomplicated CT-guided thoracentesis. Abdomen X-Ray 04/11/18 12:13 CONCLUSION: Nonspecific, nonobstructive bowel gas pattern which may represent a mild ileus or gastroenteritis. Chest X-Ray 04/11/18 16:34 CONCLUSION: Status post right thoracentesis. No evidence of pneumothorax. Assessment and Plan - Plan POD 3 s/p lap wedge resection of stomach and partial reduction of large hiatal hernia for multiple perforated ulcers of greater curve. Cont NG and OANH drains. No enteral feeding. WBC is increasing. Check CT a/p to eval for leak or abscess.
[2018-04-12] MEDS: Micafungin Inj 150 MG in Sodium Chlor 0.9% Inj 100 ML IV.SIG SCH (13:05)
[2018-04-12] MEDS: Dextrose 5% in Water Inj 1,000 ML IV.CONT SCH (13:06)
[2018-04-12] MEDS: Heparin Drip 25,000 UNIT/250 ML BAG IV.CONT PRN (13:16)
[2018-04-12] MEDS ORDERED: Diatrizoate Meglum/Diatrizoate Sod Liq 9 ML UDC PO ONE (14:00)
--- NOTE | 2018-04-12 14:35 | P.PNID ---
Subjective Remarks: WBC went to 28K denies abd pain denies new visual changes off pressors on vent, failed CPAP BC growing yeast, no ID yet dw micro: will have ID tomorrow No central lines micafungin added no BMs KUB w ileus Antibiotics: fluconazol zosyn Allergies/Adverse Reactions: Allergies atorvastatin Adverse Reaction (Verified 04/04/18 06:21) Hypotension simvastatin Adverse Reaction (Verified 04/04/18 06:21) Hypotension Objective Vital Signs 04/11/18 15:00 04/11/18 17:14 04/11/18 17:23 Temperature 99.0 F Pulse Rate 122 H 130 H Respiratory Rate 16 Blood Pressure 121/50 L Pulse Oximetry 99 98 04/11/18 19:00 04/11/18 20:58 04/11/18 23:00 Temperature 98.5 F 99.3 F Pulse Rate 128 H 95 H Respiratory Rate 17 16 16 Blood Pressure 111/76 143/66 H Pulse Oximetry 99 99 98 04/12/18 00:45 04/12/18 03:00 04/12/18 04:38 Temperature 98.1 F Pulse Rate 93 H Respiratory Rate 16 16 16 Blood Pressure 139/75 Pulse Oximetry 99 99 99 04/12/18 04:59 04/12/18 07:00 04/12/18 08:10 Temperature 99.2 F Pulse Rate 102 H 86 Respiratory Rate 16 16 16 Blood Pressure 122/48 L Pulse Oximetry 98 99 04/12/18 10:39 04/12/18 12:50 Temperature 98.3 F Pulse Rate 108 H Respiratory Rate 16 16 Blood Pressure 142/64 H Pulse Oximetry 98 98 Intake & Output 04/11/18 04/12/18 04/12/18 18:59 06:59 18:59 Intake Total 850 / 850 950 / 950 1000 / 1000 Output Total 820 / 820 510 / 510 Balance 30 / 30 440 / 440 1000 / 1000 Weight 95 kg Intake: IV 350 / 350 450 / 450 1000 / 1000 Precedex Inj 1,000 MCG In NS 200 / 200 Inj 240 ML @ 0.2 MCG/KG/HR 4.2 mls/hr IV.CONT TITRATE PRN Rx#: [id number] Heparin/D5W 25,000 U/250 mL 25, 250 / 250 000 unit In 250 ml @ 1,700 UNITS/HR 17 mls/hr IV.CONT TITRATE PRN Rx#:[id number] Diflucan 200 mg Premix Bag 100 100 / 100 ML @ 100 mls/hr IV.SIG Q24H YASH Rx#:[id number] Mycamine Inj 150 MG In NS Inj 100 / 100 100 ML @ 100 mls/hr IV.SIG Q24H YASH Rx#:[id number] Zosyn 3.375 GM Premix 50 ML @ 50 / 50 50 / 50 100 / 100 200 mls/hr IV.SIG Q6H YASH Rx#: [id number] KCl 20 mEq Premix Inj 20 meq In 200 / 200 200 / 200 100 ml @ 50 mls/hr IV.SIG Q2H PRN Rx#:[id number] fentaNYL 10 mcg/mL Premix Drip 250 / 250 2,500 mcg In 250 ml @ 50 MCG/HR 5 mls/hr IV.SIG TITRATE PRN Rx #:[id number] Flagyl 500 MG Inj 100 ML @ 100 100 / 100 100 / 100 100 / 100 mls/hr IV.SIG Q8H YASH Rx#: [id number] Oral 0 / 0 0 / 0 Other 500 / 500 500 / 500 Output: Urine Amount (Catheter) 775 / 775 400 / 400 Indwelling Urethral Catheter 775 / 775 400 / 400 Gastric Drainage 50 / 50 Right Nare Nasogastric Tube 50 / 50 Wound Drainage 45 / 45 60 / 60 # 1 Right Anterior Abdomen 30 / 30 50 / 50 # 2 Left Anterior Abdomen 15 / 15 10 / 10 Other: # Bowel Movements 0 0 04/11/18 16:57 Sputum - Endotracheal Gram Stain - Final 04/11/18 16:57 Sputum - Endotracheal Sputum Culture - Preliminary Moderate growth normal respiratory [place] at 24 hours 04/11/18 16:10 Fluid - Pleural fluid Gram Stain - Final 04/11/18 16:10 Fluid - Pleural fluid Body Fluid Culture - Preliminary No growth in 24 hours 04/08/18 14:33 Blood - Peripheral Aerobic Blood Culture - Preliminary No growth in 4 days 04/08/18 14:33 Blood - Peripheral Anaerobic Blood Culture - Preliminary No growth in 4 days 04/08/18 14:40 Blood - Peripheral Aerobic Blood Culture - Preliminary Yeast - ID to follow 04/08/18 14:40 Blood - Peripheral Anaerobic Blood Culture - Preliminary No growth in 4 days 04/12/18 05:11 Blood - Peripheral Aerobic Blood Culture - Pending 04/12/18 05:11 Blood - Peripheral Anaerobic Blood Culture - Pending 04/12/18 05:25 Blood - Peripheral Aerobic Blood Culture - Pending 04/12/18 05:25 Blood - Peripheral Anaerobic Blood Culture - Pending Lab - Hematology Results 04/11/18 04/12/18 04:35 01:43 WBC 20.2 H D 28.4 H RBC 2.98 L 3.29 L Hgb 8.9 L 9.6 L Hct 26.2 L 29.0 L MCV 88.0 88.1 MCH 30.0 29.2 MCHC 34.1 33.1 RDW 16.0 16.0 Plt Count 231 226 MPV 8.3 8.2 Prelim Diff (Auto) Slide review pending Slide review pending Neut % (Auto) 87.9 H 90.0 H Lymph % (Auto) 4.2 L 2.7 L [place] % (Auto) 6.9 6.8 Eos % (Auto) 0.9 0.4 Baso % (Auto) 0.1 0.1 Neut # (Auto) 17.8 H 25.5 H Lymph # (Auto) 0.8 L 0.8 L [place] # (Auto) 1.4 H 1.9 H Eos # (Auto) 0.2 0.1 Baso # (Auto) 0.0 0.0 WBC Differential Manual diff final Manual diff final Seg Neuts % (Manual) 87 H 68 Band Neuts % (Manual) 7 H 23 H Lymphocytes % (Manual) 2 L 3 L Monocytes % (Manual) 2 5 Eosinophils % (Manual) 1 Metamyelocytes % (Man) 1 1 Abs Neuts (Manual) 19.2 H 26.1 H Differential Comment . . Toxic Granulation 1+ H Platelet Estimate Normal Normal Platelet Morphology Normal Normal RBC Morphology Normal Lab - Chemistry Results 04/10/18 04/10/18 04/10/18 15:21 19:48 23:39 Sodium Potassium Chloride Carbon Dioxide Anion Gap BUN Creatinine Estimated GFR POC Glucose 106 97 104 Random Glucose Calcium Prot Corrected Calcium Phosphorus Magnesium Total Bilirubin AST ALT Alkaline Phosphatase Total Protein Albumin 04/11/18 04/11/18 04/11/18 04:35 21:27 22:18 Sodium 148 H Potassium 3.2 L Chloride 114 H Carbon Dioxide 24.2 Anion Gap 10 BUN 40 H Creatinine 1.18 H Estimated GFR 44 L POC Glucose 67 L 133 H Random Glucose 103 Calcium 7.4 L* Prot Corrected Calcium 8.8 Phosphorus 3.5 Magnesium 2.7 H Total Bilirubin 0.7 AST 279 H ALT 161 H Alkaline Phosphatase 76 Total Protein 4.7 L Albumin 1.6 L 04/11/18 04/12/18 04/12/18 23:24 01:43 04:51 Sodium 147 H Potassium 4.3 D Chloride 116 H Carbon Dioxide 20.7 L Anion Gap 10 BUN 36 H Creatinine 1.17 H Estimated GFR 45 L POC Glucose 83 72 Random Glucose 78 Calcium 7.4 L* Prot Corrected Calcium 8.6 Phosphorus 3.7 Magnesium 2.5 Total Bilirubin 0.6 AST 171 H ALT 124 H Alkaline Phosphatase 94 Total Protein 5.0 L Albumin 1.5 L 04/12/18 04/12/18 07:52 11:44 Sodium Potassium Chloride Carbon Dioxide Anion Gap BUN Creatinine Estimated GFR POC Glucose 73 65 L Random Glucose Calcium Prot Corrected Calcium Phosphorus Magnesium Total Bilirubin AST ALT Alkaline Phosphatase Total Protein Albumin Imaging: ITS Impressions Abdomen/Bladder Ultrasound 04/08/18 00:00 CONCLUSION: Kidneys within normal limits. Right pleural effusion noted. Abdomen/Pelvis CT 04/08/18 10:09 CONCLUSION: 1. Prominent amount of free air and free fluid in the upper abdomen and within a large hiatal hernia. A large portion of the stomach is in a hiatal hernia. Most likely etiology for the findings is a perforated gastric ulcer. Findings discussed with the patient's nurse. 2. Distended gallbladder. Chest CT 04/08/18 10:09 CONCLUSION: 1. Large hiatal hernia containing a large portion of the stomach with moderate amount of free air in the hiatal hernia and in the upper abdomen. Distal gastric wall thickening and extraluminal fluid adjacent to the distal stomach. Most likely etiology for the findings is a perforated gastric ulcer. Free fluid is also seen in the upper abdomen. 2. New bilateral lower lobe atelectasis/consolidation and small bilateral pleural effusions. Chest Ultrasound 04/11/18 00:00 CONCLUSION: 1. Left pleural effusion and marked on the skin. Thoracentesis CT 04/11/18 00:00 CONCLUSION: 1. Uncomplicated CT-guided thoracentesis. Abdomen X-Ray 04/11/18 12:13 CONCLUSION: Nonspecific, nonobstructive bowel gas pattern which may represent a mild ileus or gastroenteritis. Chest X-Ray 04/11/18 16:34 CONCLUSION: Status post right thoracentesis. No evidence of pneumothorax. Physical Exam: GENERAL: NAD int on mech vent SKIN: Warm and dry. no rash HEAD: Atraumatic. Normocephalic. EYES: Pupils equal and round. No scleral icterus. No injection or drainage. ENT: No nasal bleeding or discharge. Mucous membranes pink and moist. NECK: Trachea midline. No JVD. CARDIOVASCULAR: Regular rate and rhythm. RESPIRATORY: No accessory muscle use. Clear to auscultation. Breath sounds equal bilaterally. GASTROINTESTINAL: Abdomen soft, no reacrion to plaption, + distended JPs x [address] with cloudy serosang dc Hepatic and splenic margins not palpable. MUSCULOSKELETAL: Extremities without clubbing, some cyanosis on toes, refill delayed, or edema. No obvious deformities. 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
--- NOTE | 2018-04-12 14:43 | P.DIET ---
Nutritional Evaluation Screening comments: NPO Alert. Pt has been npo x 3 days s/p lap partial reduction of paraesophageal hernia and wedge resection of greater curvature of the stomach. Consult RD if needed.
--- NOTE | 2018-04-12 18:06 | CT ---
EXAM DATE: 04/12/2018 5:57 PM EST AGE/SEX: 77 years / Female INDICATIONS: Nausea and vomiting today. CLINICAL DATA: This is the patient's initial encounter. Patient reports that signs and symptoms have been present for 1 day and indicates a pain score of 7/10. MEDICAL/SURGICAL HISTORY: Compression fracture. Myocardial infarction. Hypertension. CABG. hi atal hernia repair, stomach resection ORAL CONTRAST: Prescribed oral contrast ingested. RADIATION DOSE: 22.10 CTDI (mGy) COMPARISON: [facility] [place], CT ABDOMEN & PELVIS W/O CONTRAST, 04/08/2018. . TECHNIQUE: Multiple contiguous axial images were obtained through the abdomen and pelvis following b olus infusion of 93 ml Omnipaque 350 (iohexol) nonionic water-soluble contrast as a single exam dos e. Prescribed oral contrast ingested. Using automated exposure control and adjustment of the mA and/ or kV according to patient size, radiation dose was kept as low as reasonably achievable to obtain op timal diagnostic quality images. DICOM format image data is available electronically for review and comparison. FINDINGS: Lower Lungs: There are bilateral pleural effusions with parenchymal infiltrates in both bases with co mpressive atelectasis in the left lower lung. Liver: The liver has a homogeneous density without space-occupying lesion. There is no dilation of th e biliary tree. Gallbladder appears to be somewhat distended. There is a trace of fluid adjacent to t he liver. The previously noted free air appears to be resolved. Surgical drains are seen in the upper abdomen consistent with recent surgery. Spleen: Homogeneous density without enlargement. Pancreas: Unremarkable without mass or calcification. Kidneys: Normal in size and shape. No evidence of mass or hydronephrosis. Adrenal Glands: Unremarkable. Aorta: Atherosclerotic changes. No aneurysmal dilatation. Bowel/Mesentery: There continues to be a prominent hiatal hernia with contrast. There are multiple d ilated loops of small bowel with air-fluid levels suggestive of a postoperative ileus. There is some air and stool throughout the colon without significant dilatation. There is some free fluid deep in t he pelvis. Postsurgical drains are noted in the upper abdomen. Abdominal Wall: Intact. Retroperitoneum: No evidence of adenopathy in the retrocrural, para-aortic, or deep pelvic regions. Bladder: There is a Garcia catheter in urinary bladder. Reproductive Organs: No abnormal masses or calcifications seen. Inguinal: The inguinal region is unremarkable without evidence of adenopathy. Bony Structures: Stable degenerative changes. CONCLUSION: 1. The previously noted free air on the prior study has resolved. Patient is recently status post ab dominal surgery. There are surgical drains in the upper abdomen. 2. There is a trace of fluid adjacent to the liver. There is a small amount of free fluid deep in th e pelvis. 3. Multiple dilated loops of small bowel with fluid and air suggestive of a postsurgical ileus. 4. There continues to be a prominent hiatal hernia. 5. Small bilateral pleural effusions with atelectasis in both lung bases. Electronically signed by: Cortez Lamb MD 04/12/2018 6:04 PM EST
--- NOTE | 2018-04-12 23:04 | P.PNCA ---
Subjective Interval history: Extubated Feels ok Feet still mildly dusky, right warm, left cool Off vasopressors Heart rates mostly controlled Medications and Allergies Active Medications: Active Medications Al Hydroxide/Mg Hydroxide (Milk Of Magnalex Liq) 30 ml PO DAILY [facility] Last Admin: 04/12/18 08:16 Dose: 30 ml Albuterol (Duoneb Neb (Prn)) 1 ampul NEB Q2HR NEB PRN PRN Reason: WHEEZING Last Admin: 04/12/18 04:58 Dose: 1 ampul Albuterol (Duoneb Neb (Yash)) 1 ampul NEB Q6HR NEB [facility] Last Admin: 04/12/18 21:14 Dose: 1 ampul Aspirin (Aspirin Chew) 81 mg PO DAILY [facility] Last Admin: 04/12/18 08:17 Dose: 81 mg Bisacodyl (Dulcolax Supp) 10 mg RECTAL PRN PRN PRN Reason: SEE LABEL COMMENTS Chlorhexidine Gluconate (Peridex 0.12% Oral Kit) 15 ml OROPHARYNG BID@0800, 2000 [facility] Last Admin: 04/12/18 21:33 Dose: Not Given Dextrose (D50w Vial) 50 ml IV.PUSH UNSCH PRN PRN Reason: PER HYPOGLYCEMIA PROTOCOL Last Admin: 04/12/18 05:40 Dose: 25 ml Docusate Sodium (Colace) 100 mg PO BID [facility] Last Admin: 04/12/18 21:34 Dose: Not Given Furosemide (Lasix Inj) 40 mg IV.PUSH BID [facility] Last Admin: 04/12/18 21:36 Dose: 40 mg Glucagon (Glucagon Inj) 1 mg OTHER UNSCH PRN PRN Reason: for Hypoglycemia Protocol Sodium Chloride (Ns Inj) 500 mls @ 30 mls/hr IV.SIG .Q10H [facility] Last Admin: 04/04/18 06:39 Dose: Not Given Acetaminophen (Ofirmev Inj) 1,000 mg in 100 mls @ 400 mls/hr IV.SIG Q6H PRN PRN Reason: PAIN SCALE 1-10 Last Infusion: 04/07/18 18:44 Dose: Infused Piperacillin/Tazobactam/Dextrose (Zosyn 3.375 Gm Premix) 50 mls @ 200 mls/hr IV.SIG Q6H [facility] Last Admin: 04/12/18 22:54 Dose: 100 mls/hr Fentanyl (Fentanyl 10 Mcg/Ml Premix Drip) 2,500 mcg in 250 mls @ 5 mls/hr IV.SIG TITRATE PRN; Protocol PRN Reason: Per Protocol Last Titration: 04/12/18 13:39 Dose: Infused Fluconazole (Diflucan 200 Mg Premix Bag) 100 mls @ 100 mls/hr IV.SIG Q24H [facility] Last Admin: 04/12/18 22:54 Dose: 100 mls/hr Magnesium Sulfate 4 gm/ Sodium (Chloride) 100 mls @ 50 mls/hr IV.SIG UNSCH PRN PRN Reason: For Magnesium 0.9 - 1.1 mg/dL Potassium Chloride (Kcl 40 Meq Premix Inj) 40 meq in 100 mls @ 25 mls/hr IV.SIG Q2H PRN PRN Reason: For Potassium 2.8 - 3.2 mEq/L Potassium Chloride (Kcl 20 Meq Premix Inj) 20 meq in 100 mls @ 50 mls/hr IV.SIG Q2H PRN PRN Reason: For Potassium 3.3 - 3.5 mEq/L Potassium Chloride (Kcl 40 Meq Premix Inj) 40 meq in 100 mls @ 25 mls/hr IV.SIG UNSCH PRN PRN Reason: For Potassium 3.3 - 3.5 mEq/L Potassium Chloride (Kcl 20 Meq Premix Inj) 20 meq in 100 mls @ 50 mls/hr IV.SIG Q2H PRN PRN Reason: For Potassium 2.8 - 3.2 mEq/L Last Infusion: 04/12/18 02:00 Dose: Infused Potassium Phosphate 30 mmol/ (Sodium Chloride) 260 mls @ 42 mls/hr IV.SIG UNSCH PRN PRN Reason: SEE LABEL COMMENTS Magnesium Sulfate 2 gm/ Sodium (Chloride) 100 mls @ 50 mls/hr IV.SIG UNSCH PRN PRN Reason: For Magnesium 1.2 - 1.6 mg/dL Sodium Phosphate 30 mmol/ (Sodium Chloride) 260 mls @ 42 mls/hr IV.SIG UNSCH PRN PRN Reason: For Phosphorus < 2.5 mg/dL Heparin Sodium/Dextrose (Heparin/D5w 25,000 U/250 Ml) 25,000 unit in 250 mls @ 17 mls/hr IV.CONT TITRATE PRN; Protocol PRN Reason: Per Protocol Last Admin: 04/12/18 13:16 Dose: 13 units/hr, 0.13 mls/hr Dextrose (D5w Inj) 1,000 mls @ 42 mls/hr IV.CONT .[id number] [facility] Last Admin: 04/12/18 13:06 Dose: 42 mls/hr Micafungin Sodium 150 mg/ (Sodium Chloride) 100 mls @ 100 mls/hr IV.SIG Q24H [facility] Last Infusion: 04/12/18 13:39 Dose: Infused Dexmedetomidine HCl 200 mcg/ (Sodium Chloride) 50 mls @ 4.75 mls/hr IV.CONT TITRATE PRN; Protocol PRN Reason: Per Protocol Last Titration: 04/12/18 18:13 Dose: 0 mcg/kg/hr, 0 mls/hr Insulin Aspart (Novolog Insulin Correctional Sugar Inj) 0 unit SQ Q4HR [facility]; Protocol Last Admin: 04/12/18 21:33 Dose: Not Given Levothyroxine Sodium (Synthroid) 100 mcg PO DAILY@0600 [facility] Last Admin: 04/12/18 05:34 Dose: 100 mcg Magnesium Oxide (Mag-Ox) 800 mg PO UNSCH PRN PRN Reason: For Magnesium 1.2 - 1.6 mg/dL Miscellaneous (Pill Splitter) 1 each OTHER UNSCH PRN PRN Reason: SEE LABEL COMMENTS Miscellaneous Medication () 1 each OROPHARYNG 0000,0400,1200,1600 [facility] Last Admin: 04/12/18 16:32 Dose: Not Given Multivitamins/Minerals (Theragran-M) 1 tab PO DAILY [facility] Last Admin: 04/12/18 08:17 Dose: 1 tab Ondansetron HCl (Zofran Inj) 4 mg IV.PUSH Q6H PRN PRN Reason: NAUSEA OR VOMITING Last Admin: 04/08/18 09:29 Dose: 4 mg Pantoprazole Sodium (Protonix Inj) 40 mg IV.PUSH Q12H [facility] Last Admin: 04/12/18 22:55 Dose: 40 mg Paroxetine HCl (Paxil) 10 mg PO DAILY [facility] Last Admin: 04/12/18 08:17 Dose: 10 mg Patient's Own: ( Rosuvastatin [ Rosuvastatin] 20 Mg) 0 each PO DAILY [facility] Polyethylene Glycol (Miralax) 17 gm PO DAILY [facility] Last Admin: 04/12/18 08:17 Dose: 17 gm Potassium Bicarb/Potassium Chloride (K-Lyte Cl Eff) 50 meq PO UNSCH PRN PRN Reason: For Potassium 3.3 - 3.5 mEq/L Potassium Phosphate (K-Phos Original) 2,000 mg PO Q4H PRN PRN Reason: Phosphorus Less Than 2.5 mg/dL Potassium Phosphate (K-Phos Original) 2,000 mg PO UNSCH PRN PRN Reason: SEE LABEL COMMENTS Sennosides (Senokot) 8.6 mg PO HS [facility] Last Admin: 04/12/18 21:36 Dose: 8.6 mg Sodium Biphosphate/Sodium Phosphate (Fleets Enema (Adult)) 118 ml RECTAL UNSCH PRN PRN Reason: SEE LABEL COMMENTS Sodium Chloride (Ns Flush) 2 ml IV.FLUSH BID [facility] Last Admin: 04/12/18 21:37 Dose: 2 ml Sodium Chloride (Ns Flush) 2 ml IV.FLUSH PRN PRN PRN Reason: FLUSH AFTER USING IV ACCESS Sterile Water (Free Water) 250 ml G-TUBE Q6HR [facility] Last Admin: 04/12/18 17:11 Dose: Not Given Terbutaline Sulfate (Brethine Inj) 1 mg SQ UNSCH PRN PRN Reason: For Extravasation Verapamil HCl (Isoptin) 40 mg PO TID [facility] Last Admin: 04/08/18 19:20 Dose: Not Given Allergies Allergy/AdvReac Type Severity Reaction Status Date / Time atorvastatin AdvReac Hypotension Verified 04/04/18 06:21 simvastatin AdvReac Hypotension Verified 04/04/18 06:21 Home Medications Medication Instructions Recorded Confirmed Type ciprofloxacin HCl [Cipro] 500 mg PO Q12H 02/16/18 04/04/18 History coenzyme Q10 [Co Q-10] 10 mg PO TID 02/16/18 04/04/18 History furosemide 40 mg PO BID 02/16/18 04/04/18 History losartan 50 mg PO DAILY 02/16/18 04/04/18 History pantoprazole 40 mg PO DAILY 02/16/18 04/04/18 History paroxetine HCl 10 mg PO DAILY 02/16/18 04/04/18 History potassium chloride [K-Tab] 10 meq PO DAILY 02/16/18 04/04/18 History ranitidine HCl 150 mg PO BID 02/16/18 04/04/18 History rosuvastatin 20 mg PO DAILY 02/16/18 04/04/18 History verapamil 180 mg PO DAILY 02/16/18 04/04/18 History warfarin 5 mg PO DAILY 02/16/18 04/04/18 History aspirin 81 mg PO DAILY 03/09/18 04/04/18 History nitroglycerin 0.4 mg SUBLINGUAL Q5-15M PRN 03/09/18 04/04/18 History Physical Exam Vital signs: Vital Signs 04/12/18 00:45 04/12/18 03:00 04/12/18 04:38 Temperature 98.1 F Pulse Rate 93 H Respiratory Rate 16 16 16 Blood Pressure 139/75 Pulse Oximetry 99 99 99 04/12/18 04:59 04/12/18 07:00 04/12/18 08:10 Temperature 99.2 F Pulse Rate 102 H 86 Respiratory Rate 16 16 16 Blood Pressure 122/48 L Pulse Oximetry 98 99 04/12/18 10:39 04/12/18 12:50 04/12/18 15:00 Temperature 98.3 F 98.1 F Pulse Rate 108 H 93 H Respiratory Rate 16 16 16 Blood Pressure 142/64 H 139/75 Pulse Oximetry 98 98 99 04/12/18 21:14 04/12/18 21:20 Temperature Pulse Rate 93 H Respiratory Rate 18 Blood Pressure Pulse Oximetry 99 Intake & Output 04/12/18 04/12/18 04/13/18 06:59 18:59 06:59 Intake Total 950 / 950 1070 / 1070 Output Total 510 / 510 973 / 973 Balance 440 / 440 97 / 97 Weight 95 kg Intake: IV 450 / 450 1050 / 1050 Precedex Inj 1,000 MCG In NS 200 / 200 Inj 240 ML @ 0.2 MCG/KG/HR 4.2 mls/hr IV.CONT TITRATE PRN Rx#: [id number] Heparin/D5W 25,000 U/250 mL 25, 250 / 250 000 unit In 250 ml @ 1,700 UNITS/HR 17 mls/hr IV.CONT TITRATE PRN Rx#:[id number] Diflucan 200 mg Premix Bag 100 100 / 100 ML @ 100 mls/hr IV.SIG Q24H [facility] Rx#:[id number] Mycamine Inj 150 MG In NS Inj 100 / 100 100 ML @ 100 mls/hr IV.SIG Q24H [facility] Rx#:[id number] Zosyn 3.375 GM Premix 50 ML @ 50 / 50 150 / 150 200 mls/hr IV.SIG Q6H [facility] Rx#: [id number] KCl 20 mEq Premix Inj 20 meq In 200 / 200 100 ml @ 50 mls/hr IV.SIG Q2H PRN Rx#:[id number] fentaNYL 10 mcg/mL Premix Drip 250 / 250 2,500 mcg In 250 ml @ 50 MCG/HR 5 mls/hr IV.SIG TITRATE PRN Rx #:[id number] Flagyl 500 MG Inj 100 ML @ 100 100 / 100 100 / 100 mls/hr IV.SIG Q8H [facility] Rx#: [id number] Oral 0 / 0 20 / 20 Other 500 / 500 Output: Urine Amount (Catheter) 400 / 400 850 / 850 Indwelling Urethral Catheter 400 / 400 850 / 850 Gastric Drainage 50 / 50 100 / 100 Right Nare Nasogastric Tube 50 / 50 100 / 100 Wound Drainage 60 / 60 23 / 23 # 1 Right Anterior Abdomen 50 / 50 20 / 20 # 2 Left Anterior Abdomen 10 / 10 3 / 3 Other: # Bowel Movements 0 Narrative: GENERAL: NAD, awake and alert SKIN: Warm and dry. HEAD: Atraumatic. Normocephalic. EYES: Pupils equal and round. No scleral icterus. No injection or drainage. ENT: No nasal bleeding or discharge. Mucous membranes pink and moist. NECK: Trachea midline. No JVD. CARDIOVASCULAR: Irregularly irregular RESPIRATORY: No accessory muscle use. Decreased breath sounds bilaterally GASTROINTESTINAL: Abdomen soft, non-tender, nondistended. Hepatic and splenic margins not palpable. MUSCULOSKELETAL: Extremities without clubbing. Toes dusky, right foot warm, left foot mildly cool NEUROLOGICAL: Awake and alert. No obvious cranial nerve deficits. Motor grossly within normal limits. Five out of 5 muscle strength in the arms and legs. Normal speech. PSYCHIATRIC: Appropriate mood and affect; insight and judgment normal. - Urinary Catheter Management Indwelling Temp Sensing Catheter Cath placed during this visit: yes Urethral indwelling: No Reason for continuing: Hourly intake/output Insertion date: 04/04/18 Insertion time: 07:52 Indwelling Urethral Catheter Cath placed during this visit: yes Reason for continuing: Hourly intake/output Insertion date: 04/08/18 Insertion time: 16:51 Results 04/12/18 01:43 04/12/18 01:43 Cardiac Enzymes 04/11/18 04/12/18 Range/Units 04:35 01:43 AST 279 H 171 H (15-37) U/L Coagulation 04/11/18 04/11/18 04/11/18 Range/Units 04:35 17:50 18:04 PT 15.1 H 16.0 H (9.8-11.6) sec APTT 34.2 H 57.8 H D (23.4-31.7) sec 04/12/18 04/12/18 04/12/18 Range/Units 01:43 05:20 18:11 PT (9.8-11.6) sec APTT 194.2 H* D 68.5 H D 80.0 H (23.4-31.7) sec CBC 04/11/18 04/12/18 Range/Units 04:35 01:43 WBC 20.2 H D 28.4 H (4.0-11.0) th/mm3 RBC 2.98 L 3.29 L (4.00-5.30) mil/mm3 Hgb 8.9 L 9.6 L (11.6-15.3) gm/dL Hct 26.2 L 29.0 L (35.0-46.0) % Plt Count 231 226 (150-450) th/mm3 Neut # (Auto) 17.8 H 25.5 H (1.8-7.7) th/mm3 Lymph # (Auto) 0.8 L 0.8 L (1.0-4.8) th/mm3 [place] # (Auto) 1.4 H 1.9 H (0.0-0.9) th/mm3 Eos # (Auto) 0.2 0.1 (0.0-0.4) th/mm3 Baso # (Auto) 0.0 0.0 (0.0-0.2) th/mm3 Comprehensive Metabolic Panel 04/11/18 04/12/18 Range/Units 04:35 01:43 Sodium 148 H 147 H (136-145) meq/L Potassium 3.2 L 4.3 D (3.5-5.1) meq/L Chloride 114 H 116 H (98-107) meq/L Carbon Dioxide 24.2 20.7 L (21.0-32.0) meq/L BUN 40 H 36 H (7-18) mg/dL Creatinine 1.18 H 1.17 H (0.50-1.00) mg/dL Calcium 7.4 L* 7.4 L* (8.5-10.1) mg/dL AST 279 H 171 H (15-37) U/L ALT 161 H 124 H (10-53) U/L Alkaline Phosphatase 76 94 (45-117) U/L Total Protein 4.7 L 5.0 L (6.4-8.2) g/dL Albumin 1.6 L 1.5 L (3.4-5.0) g/dL Intake and Output 04/12/18 04/12/18 04/13/18 14:59 22:59 06:59 Intake Total 1000 / 1000 70 / 70 Output Total 973 / 973 Balance 1000 / 1000 -903 / -903 Intake: IV 1000 / 1000 50 / 50 Precedex Inj 1,000 MCG In NS 200 / 200 Inj 240 ML @ 0.2 MCG/KG/HR 4.2 mls/hr IV.CONT TITRATE PRN Rx#: [id number] Heparin/D5W 25,000 U/250 mL 25, 250 / 250 000 unit In 250 ml @ 1,700 UNITS/HR 17 mls/hr IV.CONT TITRATE PRN Rx#:[id number] Mycamine Inj 150 MG In NS Inj 100 / 100 100 ML @ 100 mls/hr IV.SIG Q24H [facility] Rx#:[id number] Zosyn 3.375 GM Premix 50 ML @ 100 / 100 50 / 50 200 mls/hr IV.SIG Q6H [facility] Rx#: [id number] fentaNYL 10 mcg/mL Premix Drip 250 / 250 2,500 mcg In 250 ml @ 50 MCG/HR 5 mls/hr IV.SIG TITRATE PRN Rx #:[id number] Flagyl 500 MG Inj 100 ML @ 100 100 / 100 mls/hr IV.SIG Q8H [facility] Rx#: [id number] Oral 20 / 20 Output: Urine Amount (Catheter) 850 / 850 Indwelling Urethral Catheter 850 / 850 Gastric Drainage 100 / 100 Right Nare Nasogastric Tube 100 / 100 Wound Drainage # 1 Right Anterior Abdomen # 2 Left Anterior Abdomen - Imaging and Cardiology Imaging: Impressions Chest Ultrasound 04/11/18 00:00 CONCLUSION: 1. Left pleural effusion and marked on the skin. Chest Ultrasound 04/11/18 00:00 CONCLUSION: 1. Right pleural effusion marked on the skin. Thoracentesis CT 04/11/18 00:00 CONCLUSION: 1. Uncomplicated CT-guided thoracentesis. Abdomen X-Ray 04/11/18 12:13 CONCLUSION: Nonspecific, nonobstructive bowel gas pattern which may represent a mild ileus or gastroenteritis. Chest X-Ray 04/11/18 16:34 CONCLUSION: Status post right thoracentesis. No evidence of pneumothorax. Abdomen/Pelvis CT 04/12/18 00:00 CONCLUSION: 1. The previously noted free air on the prior study has resolved. Patient is recently status post abdominal surgery. There are surgical drains in the upper abdomen. 2. There is a trace of fluid adjacent to the liver. There is a small amount of free fluid deep in the pelvis. 3. Multiple dilated loops of small bowel with fluid and air suggestive of a postsurgical ileus. 4. There continues to be a prominent hiatal hernia. 5. Small bilateral pleural effusions with atelectasis in both lung bases. Assessment and Plan - Assessment (1) Severe aortic stenosis Code(s): I35.0 - Nonrheumatic aortic (valve) stenosis Status: Chronic (2) Coronary artery disease involving y[place] dehe coronary artery Code(s): I25.10 - Atherosclerotic heart disease of yocha dehe coronary artery without angina pectoris Status: Acute (3) Congestive heart failure (CHF) Code(s): I50.9 - Heart failure, unspecified Status: Chronic (4) Atrial fibrillation Code(s): I48.91 - Unspecified atrial fibrillation Status: Chronic (5) S/P CABG (coronary artery bypass graft) Code(s): Z95.1 - Presence of aortocoronary bypass graft Status: Acute - Plan 1) CAD s/p CABGx2 2) Residual Possible TAVR in the future Not a BAV candidate at this time with at least moderate AR 3) AFib Cardioverted before abdominal surgery Back in AFib Heart rates stable after digoxin load As blood pressure better and off vasopressors, will attempt to add Verapamil back Start on heparin drip, will have to restart Coumadin at some point Will have to see how she does hemodynamically going further, might need to cardiovert again, stable for now 4) Gastric ulcer/perfs Per surgery
[2018-04-13 02:05] LABS: Baso # (Auto) 0.3 th/mm3 (0.0-0.2); Eos # (Auto) 0.2 th/mm3 (0.0-0.4); Eos % (Auto) 0.5 % (0.0-4.0); Hematocrit 30.4 % (35.0-46.0); Hemoglobin 10.1 gm/dL (11.6-15.3); Lymph # (Auto) 1.1 th/mm3 (1.0-4.8); Lymph % (Auto) 3.8 % (9.0-44.0); Mean Corpuscular HGB Conc 33.1 % (32.0-36.0); Mean Corpuscular Hemoglobin 29.1 pg (27.0-34.0); Mean Corpuscular Volume 87.8 fL (80.0-100.0); Mean Platelet Volume 8.3 fL (7.0-11.0); Mono # (Auto) 1.6 th/mm3 (0.0-0.9); Mono % (Auto) 5.4 % (0.0-8.0); Neut % (Auto) 89.3 % (16.0-70.0); Platelet Count 210 th/mm3 (150-450); Red Blood Count 3.46 mil/mm3 (4.00-5.30); Red Cell Distribution Width 15.8 % (11.6-17.2); White Blood Count 30.2 th/mm3 (4.0-11.0)
[2018-04-13 02:37] LABS: Alanine Aminotransferase 90 U/L (10-53); Albumin 1.5 g/dL (3.4-5.0); Anion Gap 10 meq/L (5-15); Aspartate Aminotransferase 89 U/L (15-37); Blood Urea Nitrogen 31 mg/dL (7-18); Calcium 7.6 mg/dL (8.5-10.1); Carbon Dioxide 25.7 meq/L (21.0-32.0); Chloride 112 meq/L (98-107); Glomerular Filtration Rate 48 mL/min (>89); Glucose,Random 83 mg/dL (74-106); Magnesium 2.4 mg/dL (1.5-2.5); Phosphorus 3.8 mg/dL (2.5-4.9); Potassium 3.2 meq/L (3.5-5.1); Sodium 148 meq/L (136-145)
[2018-04-13 02:40] LABS: Alkaline Phosphatase 96 U/L (45-117); Total Protein 5.1 g/dL (6.4-8.2)
[2018-04-13] MEDS: Insulin NovoLOG Aspart Correctional Sugar Inj SQ SCH ×6 (03:08→21:35)
[2018-04-13 03:26] LABS: Eosinophils 1 % (0-4); Lymphocytes 1 % (9-44); Metamyelocytes 1 % (0-1); Monocytes 6 % (0-8); Promyelocyte 1 % (0-0)
[2018-04-13 03:29] LABS: Platelet Estimate Normal (Normal); Platelet Morphology Normal (Normal); Toxic Granulation 1+
[2018-04-13] MEDS: Potassium Chlor 20 mEq Premix 20 MEQ/100 ML PIGGYBACK IV.SIG PRN ×3 (03:30→08:52)
[2018-04-13 03:32] LABS: Acanthocytes Occ
[2018-04-13] MEDS: Docusate Sodium Liq 100 MG/10 ML UDC PO SCH ×3 (03:39→21:35)
[2018-04-13] MEDS: Piperacil/Tazo 3.375 GM Premix 50 ML IV.SIG SCH ×4 (03:42→21:36)
[2018-04-13] MEDS: Levothyroxine 100 MCG Tablet PO SCH (06:31)
--- NOTE | 2018-04-13 07:48 | P.PNCV ---
- Note Subjective/Hospital Course: 77/ female initially seen on 03/13/18 in [facility] office with Dr Warner, hx of progressive SOB over past few months . Known hx of CAD previous PCI's , ECHO revealed severe . Cardiac cath revealed multivessel disease PMH: Afib, Aortic stenosis, Asthma, CAD (coronary artery disease), CHF ( congestive heart failure), HLD (hyperlipidemia), HTN (hypertension) Hiatal hernia, Hypothyroid, LBBB (left bundle branch block), Mitral regurgitation, Myocardial infarct, Sleep apnea, TIA (transient ischemic attack) UTI (urinary tract infection) 04/04 pt electively admitted for surgery PREPROCEDURE DIAGNOSES 1. Severe Multi Vessel Coronary Artery Disease. 2. Severe aortic stenosis 3. Atrial fibrillation status post ablation POSTPROCEDURE DIAGNOSES 1. Severe Multi Vessel Coronary Artery Disease. 2. Severe aortic stenosis 3. Atrial fibrillation status post ablation 4. Heavily calcified ascending aorta SURGICAL PROCEDURE 1. Clampless off-pump Coronary Artery Bypass Grafting x 2 with Left Internal Mammary Artery (ZAPATA) to Left Anterior Descending (LAD), reverse saphenous vein graft to obtuse Marginal branch of the left Circumflex artery 2. Left leg Endoscopic Vein [place] 3. Left atrial appendage excision pt extubated after surgery crystalloid 2300cc, 1500cc EBL, 750cc cell saver 04/05 pt up in chair ECG with some mild global st elevation / pericarditis + rub, no pressors , stable for transfer, resume BB will need to resume coumadin when chest tubes out 04/06 chest tube dc without difficultly pt went into afib RVR last night and this am received 2nd bolus of amiodarone / po amiodarone increased will resume coumadin / this pm goal 2.5 / followed by Dr Menendez at home 04/07 pt was transferred back to CVICU yesterday became bradycardic / hypotensive / despite IV fluids calcium chloride / required Dopamine gtt / remains in afib rate now 90's , BP improved discussed with Dr Warner/ will consult cardiology regarding cardiac meds start lovenox and coumadin/ dc when INR > 2.0 dc fem line / consult PT / observe in CVICU today 04/08 Remains in atrial fibrillation with rapid ventricular response heart rate in the 120s Overnight events noted she received diltiazem, digoxin and Lopressor for heart rate with resultant hypotension requiring Dayday-Synephrine which is presently being weaned. Remains somewhat labile with her blood pressure Had echo this morning. Awaiting results Renal function worsening. Will consult nephrology. Likely secondary to hypoperfusion If ventricular function is okay, will give gentle hydration - Preoperative Diagnosis (1) Pneumoperitoneum (2) Paraesophageal hernia - Postoperative Diagnosis (1) Pneumoperitoneum (2) Paraesophageal hernia (3) Gastric ulcer, acute with perforation Date of procedure: 04/08/18 Procedure: Diagnostic laparoscopy Laparoscopic partial reduction of paraesophageal hernia Laparoscopic wedge resection of greater curvature of stomach 04/09 Operative findings noted Remains intubated and mechanically ventilated On Levophed for hemodynamic support. Weaning as tolerated Greatly appreciate Dr. Craig's input and assistance Renal function improving. Appreciate Dr. Holliday's input 04/10 remains sedated on vent 40% Fi02 SVV 17, CO 5.2/2.7 on Levo gtt at 2 mcq, in afib rate 110 creatinine improving left OANH drain 30cc/ 12 hrs, right OANH drain 10cc/ 12hr some drainage from prior chest tubes sites/ will dc prevena dressing 04/11 pt off all pressors , remains on 40% fi02 only on low dose fentanly for pain , awake follows commands, moves all extremities NA improving , creatinine improving, + hypoactive bowel sounds DC CVC line today, ok for Lovenox or Heparin SQ consult PT ROM 04/12 s/p right thoracentesis yesterday, removed 550cc bloody fluid remains on vent 40% awake , following commands, worsening leukocytosis cultures pending / ID following on Heparin gtt, rate improved 04/13 Clinically and hemodynamically stable. In atrial fibrillation with rate control. On heparin drip WBC continues to rise. Appreciate ID input and involvement Incentive spirometry and physical therapy as tolerated Objective: Vital Signs - 24 hr 04/12/18 08:10 04/12/18 10:39 04/12/18 12:50 Temperature 98.3 F Pulse Rate 108 H Respiratory Rate 16 16 16 Blood Pressure 142/64 H Pulse Oximetry 99 98 98 04/12/18 15:00 04/12/18 20:00 04/12/18 21:14 Temperature 98.1 F 97.9 F Pulse Rate 93 H 97 H 93 H Respiratory Rate 16 18 18 Blood Pressure 139/75 172/75 H Pulse Oximetry 99 95 04/12/18 21:20 04/13/18 00:00 04/13/18 04:00 Temperature 97.4 F L 98.0 F Pulse Rate 75 81 Respiratory Rate 18 18 Blood Pressure 142/66 H 162/73 H Pulse Oximetry 99 98 96 04/13/18 05:41 Temperature Pulse Rate 86 Respiratory Rate 22 Blood Pressure Pulse Oximetry Labs: Laboratory Results - last 12 hr 04/12/18 04/12/18 04/13/18 18:11 21:33 00:31 WBC RBC Hgb Hct MCV MCH MCHC RDW Plt Count MPV Prelim Diff (Auto) Neut % (Auto) Lymph % (Auto) [place] % (Auto) Eos % (Auto) Baso % (Auto) Neut # (Auto) Lymph # (Auto) [place] # (Auto) Eos # (Auto) Baso # (Auto) WBC Differential Seg Neuts % (Manual) Band Neuts % (Manual) Lymphocytes % (Manual) Monocytes % (Manual) Eosinophils % (Manual) Metamyelocytes % (Man) Promyelocytes % (Man) Abs Neuts (Manual) Differential Comment Toxic Granulation Platelet Estimate Platelet Morphology Acanthocytes (Spur) Keratocytes APTT 80.0 H Sodium Potassium Chloride Carbon Dioxide Anion Gap BUN Creatinine Estimated GFR POC Glucose 88 98 Random Glucose Calcium Phosphorus Magnesium Total Bilirubin AST ALT Alkaline Phosphatase Total Protein Albumin 04/13/18 04/13/18 04/13/18 01:58 01:58 01:58 WBC 30.2 H RBC 3.46 L Hgb 10.1 L Hct 30.4 L MCV 87.8 MCH 29.1 MCHC 33.1 RDW 15.8 Plt Count 210 MPV 8.3 Prelim Diff (Auto) Slide review pending Neut % (Auto) 89.3 H Lymph % (Auto) 3.8 L [place] % (Auto) 5.4 Eos % (Auto) 0.5 Baso % (Auto) 1.0 Neut # (Auto) 27.0 H Lymph # (Auto) 1.1 [place] # (Auto) 1.6 H Eos # (Auto) 0.2 Baso # (Auto) 0.3 H WBC Differential Manual diff final Seg Neuts % (Manual) 86 H Band Neuts % (Manual) 4 Lymphocytes % (Manual) 1 L Monocytes % (Manual) 6 Eosinophils % (Manual) 1 Metamyelocytes % (Man) 1 Promyelocytes % (Man) 1 H Abs Neuts (Manual) 27.8 H Differential Comment . Toxic Granulation 1+ H Platelet Estimate Normal Platelet Morphology Normal Acanthocytes (Spur) Occ H Keratocytes Occ H APTT 89.5 H Sodium 148 H Potassium 3.2 L D Chloride 112 H Carbon Dioxide 25.7 Anion Gap 10 BUN 31 H Creatinine 1.11 H Estimated GFR 48 L POC Glucose Random Glucose 83 Calcium 7.6 L Phosphorus 3.8 Magnesium 2.4 Total Bilirubin 0.5 AST 89 H ALT 90 H Alkaline Phosphatase 96 Total Protein 5.1 L Albumin 1.5 L 04/13/18 07:28 WBC RBC Hgb Hct MCV MCH MCHC RDW Plt Count MPV Prelim Diff (Auto) Neut % (Auto) Lymph % (Auto) [place] % (Auto) Eos % (Auto) Baso % (Auto) Neut # (Auto) Lymph # (Auto) [place] # (Auto) Eos # (Auto) Baso # (Auto) WBC Differential Seg Neuts % (Manual) Band Neuts % (Manual) Lymphocytes % (Manual) Monocytes % (Manual) Eosinophils % (Manual) Metamyelocytes % (Man) Promyelocytes % (Man) Abs Neuts (Manual) Differential Comment Toxic Granulation Platelet Estimate Platelet Morphology Acanthocytes (Spur) Keratocytes APTT Sodium Potassium Chloride Carbon Dioxide Anion Gap BUN Creatinine Estimated GFR POC Glucose 91 Random Glucose Calcium Phosphorus Magnesium Total Bilirubin AST ALT Alkaline Phosphatase Total Protein Albumin Result Diagrams: 04/13/18 01:58 04/13/18 01:58 - Plan (1) Severe aortic stenosis Plan: will need planned TAVR after discharge (2) Coronary artery disease involving inup[place] coronary artery Plan: ASA, consider low dose BB was on verapamil at home (3) Congestive heart failure (CHF) Plan: gentle diuresis (4) Atrial fibrillation Plan: s/p atrial appendage excision resume Coumadin / when cleared by general surgery (5) COPD (chronic obstructive pulmonary disease) Plan: nebs ezpap and acapella (6) S/P CABG (coronary artery bypass graft) Plan: ASA, resume home med crestor pulm toileting , nebs ezpap, acapella OOB ambulate eval for rehab at discharge (7) S/P exploratory laparotomy Plan: general surgery following (10) Respiratory failure requiring intubation Plan: vent weaning as per CCM (11) Leukocytosis Plan: hernandes -culture ABX per ID DC CVC line (12) Acute renal failure Plan: nephro following
[2018-04-13] MEDS: Multivitamin/Minerals Therapeutic Tablet PO SCH (08:45)
[2018-04-13] MEDS: Polyethylene Glycol 3350 17 GM Packet PO SCH (08:45)
--- NOTE | 2018-04-13 09:39 | P.PNCC ---
Subjective Subjective Remarks/Hospital Course: This is a 77-year-old female. Date of admission 04/04/2018. Date of consultation 04/06/2018. Patient has no history of aortic stenosis, coronary disease, hypertension, hyperlipidemia, gastroesophageal reflux disease, hypothyroidism and depression. On 04/04, patient had a two-vessel CABG ZAPATA to LAD, reverse saphenous vein graft to OM of left circumflex with left EVH and CLARA excision. Without complications. Today, patient this morning was in atrial fibrillation with rapid ventricular response. Received 150 mg IV amiodarone and started on oral amiodarone 400 mg along with 25 mg of oral metoprolol tartrate.. She became bradycardic this afternoon and we are asked to evaluate the patient. She is received 2 g of calcium chloride and is currently been started on dopamine drip. Her heart rate and blood pressure immediately improved after the infusion of calcium chloride. In reviewing laboratories, potassium magnesium are within normal limits. She does have a new leukocytosis of 19,000. She denies shortness of breath. She is more confused likely due to hypoperfusion 04/07 Patient is lying in bed in NAD. Feeling nauseas, denies any abdominal pain. 04/08 Patient was given Lopressor, Cardizem and Digoxin overnight for tachycardic became hypotensive and started on Neosyn ( current MAP 81mmHg). Renal function worse today with Cr: 2.22 from 1.76 04/09 Patient s/p Laparoscopic partial reduction of paraesophageal hernia and wedge resection of greater curvature of stomach. Remains intubated postop on Levophed 3 mics, sedated with Fentanyl and on is Precedex drip. s/p [id number] PRBC overnight Hgb 9.6 this morning from 6.8 04/10 Patient remains intubated and sedated. On Levophed 2 mics. :100.4 at 4am, renal function is improving with Cr: 1.40 from 1.99 04/11 Patient remains intubated off Levophed. On Fentanyl infusion for sedation. Renal function is improving with Cr:1.18 from 1.4. Afebrile. 04/12 Patient is awake and alert on CPAP with PS 10, PEEP:5 and FIO2 35%, s/p CT guided right thoracentesis yesterday with removal 550ml. Afebrile. On Heparin drip. 04/13 Patient was extubated yesterday on 2L oxygen, on Heparin drip. Afebrile. Objective Vital Signs / I&O: Vital Signs 04/12/18 10:39 04/12/18 12:50 04/12/18 15:00 Temperature 98.3 F 98.1 F Pulse Rate 108 H 93 H Respiratory Rate 16 16 16 Blood Pressure 142/64 H 139/75 Pulse Oximetry 98 98 99 04/12/18 20:00 04/12/18 21:14 04/12/18 21:20 Temperature 97.9 F Pulse Rate 97 H 93 H Respiratory Rate 18 18 Blood Pressure 172/75 H Pulse Oximetry 95 99 04/13/18 00:00 04/13/18 04:00 04/13/18 05:41 Temperature 97.4 F L 98.0 F Pulse Rate 75 81 86 Respiratory Rate 18 18 22 Blood Pressure 142/66 H 162/73 H Pulse Oximetry 98 96 04/13/18 07:00 04/13/18 07:58 Temperature 97.6 F Pulse Rate 98 H Respiratory Rate 18 Blood Pressure 142/83 H Pulse Oximetry 99 96 Intake & Output 04/12/18 04/13/18 04/13/18 18:59 06:59 18:59 Intake Total 1070 / 1070 700 / 700 125 / 125 Output Total 973 / 973 1380 / 1380 Balance 97 / 97 -680 / -680 125 / 125 Weight 93.5 kg Intake: IV 1050 / 1050 200 / 200 125 / 125 Precedex Inj 1,000 MCG In NS 200 / 200 Inj 240 ML @ 0.2 MCG/KG/HR 4.2 mls/hr IV.CONT TITRATE PRN Rx#: [id number] Heparin/D5W 25,000 U/250 mL 25, 250 / 250 000 unit In 250 ml @ 1,700 UNITS/HR 17 mls/hr IV.CONT TITRATE PRN Rx#:[id number] Diflucan 200 mg Premix Bag 100 100 / 100 ML @ 100 mls/hr IV.SIG Q24H YASH Rx#:[id number] Mycamine Inj 150 MG In NS Inj 100 / 100 100 ML @ 100 mls/hr IV.SIG Q24H YASH Rx#:[id number] Zosyn 3.375 GM Premix 50 ML @ 150 / 150 100 / 100 200 mls/hr IV.SIG Q6H YASH Rx#: [id number] KCl 20 mEq Premix Inj 20 meq In 125 / 125 100 ml @ 50 mls/hr IV.SIG Q2H PRN Rx#:[id number] fentaNYL 10 mcg/mL Premix Drip 250 / 250 2,500 mcg In 250 ml @ 50 MCG/HR 5 mls/hr IV.SIG TITRATE PRN Rx #:[id number] Flagyl 500 MG Inj 100 ML @ 100 100 / 100 mls/hr IV.SIG Q8H YASH Rx#: [id number] Oral 20 / 20 0 / 0 Water Bolus Amount 500 / 500 Output: Urine Amount (Catheter) 850 / 850 1300 / 1300 Indwelling Urethral Catheter 850 / 850 1300 / 1300 Gastric Drainage 100 / 100 50 / 50 Right Nare Nasogastric Tube 100 / 100 50 / 50 Wound Drainage / 23 30 / 30 # 1 Right Anterior Abdomen 20 / 20 30 / 30 # 2 Left Anterior Abdomen 3 / 3 0 / 0 Other: # Bowel Movements 0 Result Diagrams: 04/13/18 01:58 04/13/18 01:58 Other Results: Laboratory Results - last 12 hr 04/12/18 04/13/18 04/13/18 21:33 00:31 01:58 WBC RBC Hgb Hct MCV MCH MCHC RDW Plt Count MPV Prelim Diff (Auto) Neut % (Auto) Lymph % (Auto) [place] % (Auto) Eos % (Auto) Baso % (Auto) Neut # (Auto) Lymph # (Auto) [place] # (Auto) Eos # (Auto) Baso # (Auto) WBC Differential Seg Neuts % (Manual) Band Neuts % (Manual) Lymphocytes % (Manual) Monocytes % (Manual) Eosinophils % (Manual) Metamyelocytes % (Man) Promyelocytes % (Man) Abs Neuts (Manual) Differential Comment Toxic Granulation Platelet Estimate Platelet Morphology Acanthocytes (Spur) Keratocytes APTT 89.5 H Sodium Potassium Chloride Carbon Dioxide Anion Gap BUN Creatinine Estimated GFR POC Glucose 88 98 Random Glucose Calcium Phosphorus Magnesium Total Bilirubin AST ALT Alkaline Phosphatase Total Protein Albumin 04/13/18 04/13/18 04/13/18 01:58 01:58 07:28 WBC 30.2 H RBC 3.46 L Hgb 10.1 L Hct 30.4 L MCV 87.8 MCH 29.1 MCHC 33.1 RDW 15.8 Plt Count 210 MPV 8.3 Prelim Diff (Auto) Slide review pending Neut % (Auto) 89.3 H Lymph % (Auto) 3.8 L [place] % (Auto) 5.4 Eos % (Auto) 0.5 Baso % (Auto) 1.0 Neut # (Auto) 27.0 H Lymph # (Auto) 1.1 [place] # (Auto) 1.6 H Eos # (Auto) 0.2 Baso # (Auto) 0.3 H WBC Differential Manual diff final Seg Neuts % (Manual) 86 H Band Neuts % (Manual) 4 Lymphocytes % (Manual) 1 L Monocytes % (Manual) 6 Eosinophils % (Manual) 1 Metamyelocytes % (Man) 1 Promyelocytes % (Man) 1 H Abs Neuts (Manual) 27.8 H Differential Comment . Toxic Granulation 1+ H Platelet Estimate Normal Platelet Morphology Normal Acanthocytes (Spur) Occ H Keratocytes Occ H APTT Sodium 148 H Potassium 3.2 L D Chloride 112 H Carbon Dioxide 25.7 Anion Gap 10 BUN 31 H Creatinine 1.11 H Estimated GFR 48 L POC Glucose 91 Random Glucose 83 Calcium 7.6 L Phosphorus 3.8 Magnesium 2.4 Total Bilirubin 0.5 AST 89 H ALT 90 H Alkaline Phosphatase 96 Total Protein 5.1 L Albumin 1.5 L Imaging: Abdomen/Bladder Ultrasound 04/08/18 00:00 CONCLUSION: Kidneys within normal limits. Right pleural effusion noted. Chest CT 04/08/18 10:09 CONCLUSION: 1. Large hiatal hernia containing a large portion of the stomach with moderate amount of free air in the hiatal hernia and in the upper abdomen. Distal gastric wall thickening and extraluminal fluid adjacent to the distal stomach. Most likely etiology for the findings is a perforated gastric ulcer. Free fluid is also seen in the upper abdomen. 2. New bilateral lower lobe atelectasis/consolidation and small bilateral pleural effusions. Chest Ultrasound 04/11/18 00:00 CONCLUSION: 1. Left pleural effusion and marked on the skin. Thoracentesis CT 04/11/18 00:00 CONCLUSION: 1. Uncomplicated CT-guided thoracentesis. Abdomen X-Ray 04/11/18 12:13 CONCLUSION: Nonspecific, nonobstructive bowel gas pattern which may represent a mild ileus or gastroenteritis. Chest X-Ray 04/11/18 16:34 CONCLUSION: Status post right thoracentesis. No evidence of pneumothorax. Abdomen/Pelvis CT 04/12/18 00:00 CONCLUSION: 1. The previously noted free air on the prior study has resolved. Patient is recently status post abdominal surgery. There are surgical drains in the upper abdomen. 2. There is a trace of fluid adjacent to the liver. There is a small amount of free fluid deep in the pelvis. 3. Multiple dilated loops of small bowel with fluid and air suggestive of a postsurgical ileus. 4. There continues to be a prominent hiatal hernia. 5. Small bilateral pleural effusions with atelectasis in both lung bases. Objective Remarks: GENERAL: Patient is 77 yo lying in bed intubated SKIN: Warm and dry. HEAD: Normocephalic. EYES: No scleral icterus. No injection or drainage. NECK: Supple, trachea midline. No JVD or lymphadenopathy. CARDIOVASCULAR: Tachycardic without murmurs, gallops, or rubs. RESPIRATORY: Breath sounds equal bilaterally. No accessory muscle use. GASTROINTESTINAL: Abdomen soft, non-tender, nondistended. MUSCULOSKELETAL: No cyanosis, or edema. Neuro: Awake and alert Assessment and Plan - Assessment and Plan Plan: Neuro/Psych: Depressive disorder NOS History of TIA Awake and alert Currently on paroxetine 10 mg daily for depression. CV: Postoperative CABG x2 ZAPATA to LAD, reverse saphenous vein graft to OM with left EVH and CLARA excision -Dr. Warner Atrial fibrillation Essential hypertension by history Hyperlipidemia Coronary artery disease status post PTCA left anterior descending proximal monitor HR and BP keep MAP>65mmHG Lactic acid 2.0 Cardiac catheterization 417 revealed left ear 0.48 cm area. EF 55-60%. Moderate aortic regurgitation. On rosuvastatin 10 mg daily at home. Noted allergies to atorvastatin simvastatin Continue aspirin 81 mg daily Cards is following- Dr. Valle On Heparin drip- Monitor PTT per protocol. Resp: VDRF Extubated 04/12 Obstructive sleep apnea Continue with oxygen keep sats> 92% Bronchodilators, IS s/p CT guided right thoracentesis 04/11 with removal 550 ml pleural fluid Exudative effusion by LDH criteria likely 2nd diuretics. GI: s/p Laparoscopic partial reduction of paraesophageal hernia, wedge resection of greater curvature of stomach 04/08 Diverticulosis Gastroesophageal reflux disease Hiatal hernia Pantoprazole for GI prophylaxis 04/[address] abd/pelvis: The previously noted free air on the prior study has resolved. Patient is recently status post abdominal surgery. There are surgical drains in the upper abdomen. Multiple dilated loops of small bowel with fluid and air suggestive of a postsurgical ileus. Prominent hiatal hernia. Docusate sodium/senna 1 tablet twice daily for hours along with polythene glycol 17 g daily KUB 04/11: Nonspecific, nonobstructive bowel gas pattern which may represent a mild ileus KUB abdomen 04/07 : Nonspecific bowel gas pattern with scattered small and large bowel gas. 04/08 CT abd/pelvis- Prominent amount of free air and free fluid in the upper abdomen and within a large hiatal hernia. A large portion of the stomach is in a hiatal hernia. Most likely etiology for the findings is a perforated gastric ulcer. 04/08 s/p Laparoscopic partial reduction of paraesophageal hernia, wedge resection of greater curvature of stomach, washout, drain placement performed. Monitor OANH drainage- Surgery- Dr. Craig. Endo: Hypothyroidism Currently on levothyroxine 100 mcg p.o. daily TSH:0.72 Sliding scale insulin with aspart insulin Renal: Acute kidney injury Monitor renal function, I/O's, electrolytes replacement per protocol Lasix 40mg IV BID. Will need K replacement today Renal US: No hydronephrosis Heme: Leukocytosis Normocytic anemia Chronic warfarin use Monitor CBC, Coags daily.on Heparin drip per cards s/p transfusion 2u PRBC overnight 04/09 ID: Fungemia 04/08 On empiric abx ( Zosyn, Micafungin) Monitor for signs of infections ( fever, WBC ) Follow up BC 04/08: Yeast Optho eval r/o endophthalmitis Check C-diff PCR ID is following MSK: Elevated BMI Osteoporosis/osteoarthritis Lumbar radiculopathy Physical therapy evaluate and treat Access -Utilize peripheral IV. Prophylaxis -GI -pantoprazole -DVT-SCD/pharmacological prophylaxis- Heparin dip Level 3
--- NOTE | 2018-04-13 10:14 | P.PNGS ---
Subjective Interval history: Extubated yesterday afternoon and stable overnight. Denies abdominal pain. WBC 30. No BM. CT a/p shows no free air, no organized or loculated fluid collections. Physical Exam Vital signs: Vital Signs 04/12/18 10:39 04/12/18 12:50 04/12/18 15:00 Temperature 98.3 F 98.1 F Pulse Rate 108 H 93 H Respiratory Rate 16 16 16 Blood Pressure 142/64 H 139/75 Pulse Oximetry 98 98 99 04/12/18 20:00 04/12/18 21:14 04/12/18 21:20 Temperature 97.9 F Pulse Rate 97 H 93 H Respiratory Rate 18 18 Blood Pressure 172/75 H Pulse Oximetry 95 99 04/13/18 00:00 04/13/18 04:00 04/13/18 05:41 Temperature 97.4 F L 98.0 F Pulse Rate 75 81 86 Respiratory Rate 18 18 22 Blood Pressure 142/66 H 162/73 H Pulse Oximetry 98 96 04/13/18 07:00 04/13/18 07:58 04/13/18 09:45 Temperature 97.6 F Pulse Rate 98 H 70 Respiratory Rate 18 17 Blood Pressure 142/83 H Pulse Oximetry 99 96 98 Intake & Output 04/12/18 04/13/18 04/13/18 18:59 06:59 18:59 Intake Total 1070 / 1070 700 / 700 125 / 125 Output Total 973 / 973 1380 / 1380 Balance 97 / 97 -680 / -680 125 / 125 Weight 93.5 kg Intake: IV 1050 / 1050 200 / 200 125 / 125 Precedex Inj 1,000 MCG In NS 200 / 200 Inj 240 ML @ 0.2 MCG/KG/HR 4.2 mls/hr IV.CONT TITRATE PRN Rx#: [id number] Heparin/D5W 25,000 U/250 mL 25, 250 / 250 000 unit In 250 ml @ 1,700 UNITS/HR 17 mls/hr IV.CONT TITRATE PRN Rx#:[id number] Diflucan 200 mg Premix Bag 100 100 / 100 ML @ 100 mls/hr IV.SIG Q24H [facility] Rx#:[id number] Mycamine Inj 150 MG In NS Inj 100 / 100 100 ML @ 100 mls/hr IV.SIG Q24H [facility] Rx#:[id number] Zosyn 3.375 GM Premix 50 ML @ 150 / 150 100 / 100 200 mls/hr IV.SIG Q6H [facility] Rx#: [id number] KCl 20 mEq Premix Inj 20 meq In 125 / 125 100 ml @ 50 mls/hr IV.SIG Q2H PRN Rx#:[id number] fentaNYL 10 mcg/mL Premix Drip 250 / 250 2,500 mcg In 250 ml @ 50 MCG/HR 5 mls/hr IV.SIG TITRATE PRN Rx #:[id number] Flagyl 500 MG Inj 100 ML @ 100 100 / 100 mls/hr IV.SIG Q8H [facility] Rx#: [id number] Oral 20 / 20 0 / 0 Water Bolus Amount 500 / 500 Output: Urine Amount (Catheter) 850 / 850 1300 / 1300 Indwelling Urethral Catheter 850 / 850 1300 / 1300 Gastric Drainage 100 / 100 50 / 50 Right Nare Nasogastric Tube 100 / 100 50 / 50 Wound Drainage 23 / 23 30 / 30 # 1 Right Anterior Abdomen 20 / 20 30 / 30 # 2 Left Anterior Abdomen 3 / 3 0 / 0 Other: # Bowel Movements 0 Narrative: NAD, sitting in chair. NGT to suction Abd: soft, OANH right side ss, left slightly brownish but low output Diffuse edema of extremities - Urinary Catheter Management Indwelling Temp Sensing Catheter Cath placed during this visit: yes Urethral indwelling: No Reason for continuing: Hourly intake/output Insertion date: 04/04/18 Insertion time: 07:52 Indwelling Urethral Catheter Cath placed during this visit: yes Reason for continuing: Hourly intake/output Insertion date: 04/08/18 Insertion time: 16:51 Results - Labs 04/13/18 01:58 04/13/18 01:58 Laboratory Results - last 24 hr 04/12/18 04/12/18 04/12/18 11:44 16:24 18:11 WBC RBC Hgb Hct MCV MCH MCHC RDW Plt Count MPV Prelim Diff (Auto) Neut % (Auto) Lymph % (Auto) [place] % (Auto) Eos % (Auto) Baso % (Auto) Neut # (Auto) Lymph # (Auto) [place] # (Auto) Eos # (Auto) Baso # (Auto) WBC Differential Seg Neuts % (Manual) Band Neuts % (Manual) Lymphocytes % (Manual) Monocytes % (Manual) Eosinophils % (Manual) Metamyelocytes % (Man) Promyelocytes % (Man) Abs Neuts (Manual) Differential Comment Toxic Granulation Platelet Estimate Platelet Morphology Acanthocytes (Spur) Keratocytes APTT 80.0 H Sodium Potassium Chloride Carbon Dioxide Anion Gap BUN Creatinine Estimated GFR POC Glucose 65 L 88 Random Glucose Calcium Phosphorus Magnesium Total Bilirubin AST ALT Alkaline Phosphatase Total Protein Albumin 04/12/18 04/13/18 04/13/18 21:33 00:31 01:58 WBC RBC Hgb Hct MCV MCH MCHC RDW Plt Count MPV Prelim Diff (Auto) Neut % (Auto) Lymph % (Auto) [place] % (Auto) Eos % (Auto) Baso % (Auto) Neut # (Auto) Lymph # (Auto) [place] # (Auto) Eos # (Auto) Baso # (Auto) WBC Differential Seg Neuts % (Manual) Band Neuts % (Manual) Lymphocytes % (Manual) Monocytes % (Manual) Eosinophils % (Manual) Metamyelocytes % (Man) Promyelocytes % (Man) Abs Neuts (Manual) Differential Comment Toxic Granulation Platelet Estimate Platelet Morphology Acanthocytes (Spur) Keratocytes APTT 89.5 H Sodium Potassium Chloride Carbon Dioxide Anion Gap BUN Creatinine Estimated GFR POC Glucose 88 98 Random Glucose Calcium Phosphorus Magnesium Total Bilirubin AST ALT Alkaline Phosphatase Total Protein Albumin 04/13/18 04/13/18 04/13/18 01:58 01:58 07:28 WBC 30.2 H RBC 3.46 L Hgb 10.1 L Hct 30.4 L MCV 87.8 MCH 29.1 MCHC 33.1 RDW 15.8 Plt Count 210 MPV 8.3 Prelim Diff (Auto) Slide review pending Neut % (Auto) 89.3 H Lymph % (Auto) 3.8 L [place] % (Auto) 5.4 Eos % (Auto) 0.5 Baso % (Auto) 1.0 Neut # (Auto) 27.0 H Lymph # (Auto) 1.1 [place] # (Auto) 1.6 H Eos # (Auto) 0.2 Baso # (Auto) 0.3 H WBC Differential Manual diff final Seg Neuts % (Manual) 86 H Band Neuts % (Manual) 4 Lymphocytes % (Manual) 1 L Monocytes % (Manual) 6 Eosinophils % (Manual) 1 Metamyelocytes % (Man) 1 Promyelocytes % (Man) 1 H Abs Neuts (Manual) 27.8 H Differential Comment . Toxic Granulation 1+ H Platelet Estimate Normal Platelet Morphology Normal Acanthocytes (Spur) Occ H Keratocytes Occ H APTT Sodium 148 H Potassium 3.2 L D Chloride 112 H Carbon Dioxide 25.7 Anion Gap 10 BUN 31 H Creatinine 1.11 H Estimated GFR 48 L POC Glucose 91 Random Glucose 83 Calcium 7.6 L Phosphorus 3.8 Magnesium 2.4 Total Bilirubin 0.5 AST 89 H ALT 90 H Alkaline Phosphatase 96 Total Protein 5.1 L Albumin 1.5 L - Imaging Imaging: ITS Impressions Abdomen/Bladder Ultrasound 04/08/18 00:00 CONCLUSION: Kidneys within normal limits. Right pleural effusion noted. Chest CT 04/08/18 10:09 CONCLUSION: 1. Large hiatal hernia containing a large portion of the stomach with moderate amount of free air in the hiatal hernia and in the upper abdomen. Distal gastric wall thickening and extraluminal fluid adjacent to the distal stomach. Most likely etiology for the findings is a perforated gastric ulcer. Free fluid is also seen in the upper abdomen. 2. New bilateral lower lobe atelectasis/consolidation and small bilateral pleural effusions. Chest Ultrasound 04/11/18 00:00 CONCLUSION: 1. Left pleural effusion and marked on the skin. Thoracentesis CT 04/11/18 00:00 CONCLUSION: 1. Uncomplicated CT-guided thoracentesis. Abdomen X-Ray 04/11/18 12:13 CONCLUSION: Nonspecific, nonobstructive bowel gas pattern which may represent a mild ileus or gastroenteritis. Chest X-Ray 04/11/18 16:34 CONCLUSION: Status post right thoracentesis. No evidence of pneumothorax. Abdomen/Pelvis CT 04/12/18 00:00 CONCLUSION: 1. The previously noted free air on the prior study has resolved. Patient is recently status post abdominal surgery. There are surgical drains in the upper abdomen. 2. There is a trace of fluid adjacent to the liver. There is a small amount of free fluid deep in the pelvis. 3. Multiple dilated loops of small bowel with fluid and air suggestive of a postsurgical ileus. 4. There continues to be a prominent hiatal hernia. 5. Small bilateral pleural effusions with atelectasis in both lung bases. Assessment and Plan - Plan POD 4 s/p lap wedge resection of stomach and partial reduction of large hiatal hernia for multiple perforated ulcers of greater curve. WBC continues to rise. Case discussed with Dr. Knox who remains concerned for possible intraabdominal source. Will place methylene blue down NG to r/o small gastric leak. Discussed CT a/p with Dr. Valenzuela in person and reviewed images- no concerning fluid collections are present and stomach appears intact with no leak or surrounding air. She does have an ileus. Cont NG and OANH drains. No enteral feeding until methylene blue leak test performed.
[2018-04-13] MEDS ORDERED: Methylene Blue Inj 100 MG/10 ML Vial G-TUBE ONE (11:00)
[2018-04-13] MEDS: Pantoprazole Inj 40 MG Vial IV.PUSH SCH (16:22)
[2018-04-13] MEDS: Dextrose 5% in Water Inj 1,000 ML IV.CONT SCH (16:23)
[2018-04-13] MEDS: Micafungin Inj 150 MG in Sodium Chlor 0.9% Inj 100 ML IV.SIG SCH (16:25)
--- NOTE | 2018-04-13 17:09 | P.PNNP ---
Subjective Interval history: Patient extubated NG tube in place Physical Exam Vital signs: Vital Signs 04/12/18 20:00 04/12/18 21:14 04/12/18 21:20 Temperature 97.9 F Pulse Rate 97 H 93 H Respiratory Rate 18 18 Blood Pressure 172/75 H Pulse Oximetry 95 99 04/13/18 00:00 04/13/18 04:00 04/13/18 05:41 Temperature 97.4 F L 98.0 F Pulse Rate 75 81 86 Respiratory Rate 18 18 22 Blood Pressure 142/66 H 162/73 H Pulse Oximetry 98 96 04/13/18 07:00 04/13/18 07:58 04/13/18 09:45 Temperature 97.6 F Pulse Rate 98 H 70 Respiratory Rate 18 17 Blood Pressure 142/83 H Pulse Oximetry 99 96 98 04/13/18 11:00 04/13/18 12:06 04/13/18 15:00 Temperature 98.3 F Pulse Rate 103 H 93 H Respiratory Rate 20 20 Blood Pressure 146/74 H 139/72 Pulse Oximetry 98 97 97 04/13/18 15:37 04/13/18 16:32 Temperature Pulse Rate 101 H Respiratory Rate 18 Blood Pressure Pulse Oximetry 99 Intake & Output 04/12/18 04/13/18 04/13/18 18:59 06:59 18:59 Intake Total 1070 / 1070 700 / 700 1625 / 1625 Output Total 973 / 973 1380 / 1380 870 / 870 Balance 97 / 97 -680 / -680 755 / 755 Weight 93.5 kg Intake: IV 1050 / 1050 200 / 200 1275 / 1275 Precedex Inj 1,000 MCG In NS 200 / 200 Inj 240 ML @ 0.2 MCG/KG/HR 4.2 mls/hr IV.CONT TITRATE PRN Rx#: [id number] D5W Inj 1,000 ML @ 42 mls/hr IV 1000 / 1000 .CONT .[id number] [facility] Rx#:[id number] Heparin/D5W 25,000 U/250 mL 25, 250 / 250 000 unit In 250 ml @ 1,700 UNITS/HR 17 mls/hr IV.CONT TITRATE PRN Rx#:[id number] Diflucan 200 mg Premix Bag 100 100 / 100 ML @ 100 mls/hr IV.SIG Q24H [facility] Rx#:[id number] Mycamine Inj 150 MG In NS Inj 100 / 100 100 ML @ 100 mls/hr IV.SIG Q24H [facility] Rx#:[id number] Zosyn 3.375 GM Premix 50 ML @ 150 / 150 100 / 100 50 / 50 200 mls/hr IV.SIG Q6H [facility] Rx#: [id number] KCl 20 mEq Premix Inj 20 meq In 225 / 225 100 ml @ 50 mls/hr IV.SIG Q2H PRN Rx#:[id number] fentaNYL 10 mcg/mL Premix Drip 250 / 250 2,500 mcg In 250 ml @ 50 MCG/HR 5 mls/hr IV.SIG TITRATE PRN Rx #:[id number] Flagyl 500 MG Inj 100 ML @ 100 100 / 100 mls/hr IV.SIG Q8H [facility] Rx#: [id number] Oral 20 / 20 0 / 0 Tube Irrigant 350 / 350 Water Bolus Amount 500 / 500 Output: Urine Amount (Catheter) 850 / 850 1300 / 1300 650 / 650 Indwelling Urethral Catheter 850 / 850 1300 / 1300 650 / 650 Gastric Drainage 100 / 100 50 / 50 200 / 200 Right Nare Nasogastric Tube 100 / 100 50 / 50 200 / 200 Wound Drainage 23 / 23 30 / 30 20 / 20 # 1 Right Anterior Abdomen 20 / 20 30 / 30 15 / 15 # 2 Left Anterior Abdomen 3 / 3 0 / 0 5 / 5 Other: # Bowel Movements 0 Narrative: NAD, sitting in chair. NGT to suction Abd: soft, OANH right side ss, left slightly brownish but low output Diffuse edema of extremities - Urinary Catheter Management Indwelling Temp Sensing Catheter Cath placed during this visit: yes Urethral indwelling: No Reason for continuing: Hourly intake/output Insertion date: 04/04/18 Insertion time: 07:52 Indwelling Urethral Catheter Cath placed during this visit: yes Reason for continuing: Hourly intake/output Insertion date: 04/08/18 Insertion time: 16:51 Assessment and Plan - Assessment (1) Acute renal failure Code(s): N17.9 - Acute kidney failure, unspecified Status: Acute (2) Atrial fibrillation Code(s): I48.91 - Unspecified atrial fibrillation Status: Chronic (3) S/P CABG (coronary artery bypass graft) Code(s): Z95.1 - Presence of aortocoronary bypass graft Status: Acute (4) Pneumoperitoneum Code(s): K66.8 - Other specified disorders of peritoneum Status: Acute (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
--- NOTE | 2018-04-13 18:21 | P.PNID ---
Subjective Remarks: WBC went to 30K denies abd pain c/o L shoulder pain extubated denies new visual changes off pressors BC growing C. glabrata CT dw Dr Craig and radiologist. No e/o infected fluid colections No central lines micafungin added no BMs KUB w ileus Antibiotics: micafungin fluconazol zosyn Allergies/Adverse Reactions: Allergies atorvastatin Adverse Reaction (Verified 04/04/18 06:21) Hypotension simvastatin Adverse Reaction (Verified 04/04/18 06:21) Hypotension Objective Vital Signs 04/12/18 20:00 04/12/18 21:14 04/12/18 21:20 Temperature 97.9 F Pulse Rate 97 H 93 H Respiratory Rate 18 18 Blood Pressure 172/75 H Pulse Oximetry 95 99 04/13/18 00:00 04/13/18 04:00 04/13/18 05:41 Temperature 97.4 F L 98.0 F Pulse Rate 75 81 86 Respiratory Rate 18 18 22 Blood Pressure 142/66 H 162/73 H Pulse Oximetry 98 96 04/13/18 07:00 04/13/18 07:58 04/13/18 09:45 Temperature 97.6 F Pulse Rate 98 H 70 Respiratory Rate 18 17 Blood Pressure 142/83 H Pulse Oximetry 99 96 98 04/13/18 11:00 04/13/18 12:06 04/13/18 15:00 Temperature 98.3 F Pulse Rate 103 H 93 H Respiratory Rate 20 20 Blood Pressure 146/74 H 139/72 Pulse Oximetry 98 97 97 04/13/18 15:37 04/13/18 16:32 Temperature Pulse Rate 101 H Respiratory Rate 18 Blood Pressure Pulse Oximetry 99 Intake & Output 04/12/18 04/13/18 04/13/18 18:59 06:59 18:59 Intake Total 1070 / 1070 700 / 700 1775 / 1775 Output Total 973 / 973 1380 / 1380 870 / 870 Balance 97 / 97 -680 / -680 905 / 905 Weight 93.5 kg Intake: IV 1050 / 1050 200 / 200 1425 / 1425 Precedex Inj 1,000 MCG In NS 200 / 200 Inj 240 ML @ 0.2 MCG/KG/HR 4.2 mls/hr IV.CONT TITRATE PRN Rx#: [id number] D5W Inj 1,000 ML @ 42 mls/hr IV 1000 / 1000 .CONT .[id number] [facility] Rx#:[id number] Heparin/D5W 25,000 U/250 mL 25, 250 / 250 000 unit In 250 ml @ 1,700 UNITS/HR 17 mls/hr IV.CONT TITRATE PRN Rx#:[id number] Diflucan 200 mg Premix Bag 100 100 / 100 ML @ 100 mls/hr IV.SIG Q24H [facility] Rx#:[id number] Mycamine Inj 150 MG In NS Inj 100 / 100 100 / 100 100 ML @ 100 mls/hr IV.SIG Q24H [facility] Rx#:[id number] Zosyn 3.375 GM Premix 50 ML @ 150 / 150 100 / 100 100 / 100 200 mls/hr IV.SIG Q6H [facility] Rx#: [id number] KCl 20 mEq Premix Inj 20 meq In 225 / 225 100 ml @ 50 mls/hr IV.SIG Q2H PRN Rx#:[id number] fentaNYL 10 mcg/mL Premix Drip 250 / 250 2,500 mcg In 250 ml @ 50 MCG/HR 5 mls/hr IV.SIG TITRATE PRN Rx #:[id number] Flagyl 500 MG Inj 100 ML @ 100 100 / 100 mls/hr IV.SIG Q8H [facility] Rx#: [id number] Oral 20 / 20 0 / 0 Tube Irrigant 350 / 350 Water Bolus Amount 500 / 500 Output: Urine Amount (Catheter) 850 / 850 1300 / 1300 650 / 650 Indwelling Urethral Catheter 850 / 850 1300 / 1300 650 / 650 Gastric Drainage 100 / 100 50 / 50 200 / 200 Right Nare Nasogastric Tube 100 / 100 50 / 50 200 / 200 Wound Drainage 23 / 23 30 / 30 20 / 20 # 1 Right Anterior Abdomen 20 / 20 30 / 30 15 / 15 # 2 Left Anterior Abdomen 3 / 3 0 / 0 5 / 5 Other: # Bowel Movements 0 04/08/18 14:40 Blood - Peripheral Aerobic Blood Culture - Final [place] 04/08/18 14:40 Blood - Peripheral Anaerobic Blood Culture - Final No growth in 5 days 04/11/18 16:57 Sputum - Endotracheal Gram Stain - Final 04/11/18 16:57 Sputum - Endotracheal Sputum Culture - Final Moderate growth normal respiratory [place] 04/12/18 05:11 Blood - Peripheral Aerobic Blood Culture - Preliminary No growth in 1 day 04/12/18 05:11 Blood - Peripheral Anaerobic Blood Culture - Preliminary No growth in 1 day 04/12/18 05:25 Blood - Peripheral Aerobic Blood Culture - Preliminary No growth in 1 day 04/12/18 05:25 Blood - Peripheral Anaerobic Blood Culture - Preliminary No growth in 1 day 04/08/18 14:33 Blood - Peripheral Aerobic Blood Culture - Final No growth in 5 days 04/08/18 14:33 Blood - Peripheral Anaerobic Blood Culture - Final No growth in 5 days 04/11/18 16:10 Fluid - Pleural fluid Gram Stain - Final 04/11/18 16:10 Fluid - Pleural fluid Body Fluid Culture - Preliminary No growth in 48 hours Lab - Hematology Results 04/12/18 04/13/18 01:43 01:58 WBC 28.4 H 30.2 H RBC 3.29 L 3.46 L Hgb 9.6 L 10.1 L Hct 29.0 L 30.4 L MCV 88.1 87.8 MCH 29.2 29.1 MCHC 33.1 33.1 RDW 16.0 15.8 Plt Count 226 210 MPV 8.2 8.3 Prelim Diff (Auto) Slide review pending Slide review pending Neut % (Auto) 90.0 H 89.3 H Lymph % (Auto) 2.7 L 3.8 L [place] % (Auto) 6.8 5.4 Eos % (Auto) 0.4 0.5 Baso % (Auto) 0.1 1.0 Neut # (Auto) 25.5 H 27.0 H Lymph # (Auto) 0.8 L 1.1 [place] # (Auto) 1.9 H 1.6 H Eos # (Auto) 0.1 0.2 Baso # (Auto) 0.0 0.3 H WBC Differential Manual diff final Manual diff final Seg Neuts % (Manual) 68 86 H Band Neuts % (Manual) 23 H 4 Lymphocytes % (Manual) 3 L 1 L Monocytes % (Manual) 5 6 Eosinophils % (Manual) 1 Metamyelocytes % (Man) 1 1 Promyelocytes % (Man) 1 H Abs Neuts (Manual) 26.1 H 27.8 H Differential Comment . . Toxic Granulation 1+ H 1+ H Platelet Estimate Normal Normal Platelet Morphology Normal Normal RBC Morphology Normal Acanthocytes (Spur) Occ H Keratocytes Occ H Lab - Chemistry Results 04/11/18 04/11/18 04/11/18 21:27 22:18 23:24 Sodium Potassium Chloride Carbon Dioxide Anion Gap BUN Creatinine Estimated GFR POC Glucose 67 L 133 H 83 Random Glucose Calcium Prot Corrected Calcium Phosphorus Magnesium Total Bilirubin AST ALT Alkaline Phosphatase Total Protein Albumin 04/12/18 04/12/18 04/12/18 01:43 04:51 07:52 Sodium 147 H Potassium 4.3 D Chloride 116 H Carbon Dioxide 20.7 L Anion Gap 10 BUN 36 H Creatinine 1.17 H Estimated GFR 45 L POC Glucose 72 73 Random Glucose 78 Calcium 7.4 L* Prot Corrected Calcium 8.6 Phosphorus 3.7 Magnesium 2.5 Total Bilirubin 0.6 AST 171 H ALT 124 H Alkaline Phosphatase 94 Total Protein 5.0 L Albumin 1.5 L 04/12/18 04/12/18 04/12/18 11:44 16:24 21:33 Sodium Potassium Chloride Carbon Dioxide Anion Gap BUN Creatinine Estimated GFR POC Glucose 65 L 88 88 Random Glucose Calcium Prot Corrected Calcium Phosphorus Magnesium Total Bilirubin AST ALT Alkaline Phosphatase Total Protein Albumin 04/13/18 04/13/18 04/13/18 00:31 01:58 07:28 Sodium 148 H Potassium 3.2 L D Chloride 112 H Carbon Dioxide 25.7 Anion Gap 10 BUN 31 H Creatinine 1.11 H Estimated GFR 48 L POC Glucose 98 91 Random Glucose 83 Calcium 7.6 L Prot Corrected Calcium Phosphorus 3.8 Magnesium 2.4 Total Bilirubin 0.5 AST 89 H ALT 90 H Alkaline Phosphatase 96 Total Protein 5.1 L Albumin 1.5 L 04/13/18 14:51 Sodium Potassium Chloride Carbon Dioxide Anion Gap BUN Creatinine Estimated GFR POC Glucose 92 Random Glucose Calcium Prot Corrected Calcium Phosphorus Magnesium Total Bilirubin AST ALT Alkaline Phosphatase Total Protein Albumin Imaging: ITS Impressions Abdomen/Bladder Ultrasound 04/08/18 00:00 CONCLUSION: Kidneys within normal limits. Right pleural effusion noted. Chest CT 04/08/18 10:09 CONCLUSION: 1. Large hiatal hernia containing a large portion of the stomach with moderate amount of free air in the hiatal hernia and in the upper abdomen. Distal gastric wall thickening and extraluminal fluid adjacent to the distal stomach. Most likely etiology for the findings is a perforated gastric ulcer. Free fluid is also seen in the upper abdomen. 2. New bilateral lower lobe atelectasis/consolidation and small bilateral pleural effusions. Chest Ultrasound 04/11/18 00:00 CONCLUSION: 1. Left pleural effusion and marked on the skin. Thoracentesis CT 04/11/18 00:00 CONCLUSION: 1. Uncomplicated CT-guided thoracentesis. Abdomen X-Ray 04/11/18 12:13 CONCLUSION: Nonspecific, nonobstructive bowel gas pattern which may represent a mild ileus or gastroenteritis. Chest X-Ray 04/11/18 16:34 CONCLUSION: Status post right thoracentesis. No evidence of pneumothorax. Abdomen/Pelvis CT 04/12/18 00:00 CONCLUSION: 1. The previously noted free air on the prior study has resolved. Patient is recently status post abdominal surgery. There are surgical drains in the upper abdomen. 2. There is a trace of fluid adjacent to the liver. There is a small amount of free fluid deep in the pelvis. 3. Multiple dilated loops of small bowel with fluid and air suggestive of a postsurgical ileus. 4. There continues to be a prominent hiatal hernia. 5. Small bilateral pleural effusions with atelectasis in both lung bases. Physical Exam: GENERAL: NAD SKIN: Warm and dry. no rash HEAD: Atraumatic. Normocephalic. EYES: Pupils equal and round. No scleral icterus. No injection or drainage. ENT: No nasal bleeding or discharge. Mucous membranes pink and moist. NECK: Trachea midline. No JVD. CARDIOVASCULAR: Regular rate and rhythm. RESPIRATORY: No accessory muscle use. Clear to auscultation. Breath sounds equal bilaterally. GASTROINTESTINAL: Abdomen soft, no tenderness to plaption, + distended JPs x [address] with cloudy serosang dc Hepatic and splenic margins not palpable. MUSCULOSKELETAL: Extremities without clubbing, some cyanosis on toes, refill delayed, or edema. No obvious deformities. NEUROLOGICAL: awake, communicates with nodding appropriately unswering questions PSYCHIATRIC: calm Assessment and Plan - Plan Large paraesophageal hernia sp perforation of stomach with diffuse contamination of abdominal cavity sp emergent lap repair Acute VDRF ALVIN CAD severe sp CABG on 04/04 worsening leukocytosis b/l pleural effusions, consolidations Ileus C.glabrata sepsis source intraabd less likley line No drainabel fluid collections on abd/pel CT scan cont zosyn, dc fluconazol cont micafungin Ophthalmology consult fu repeat BC will repeat 2 D echo iof more + bl clx dw Hector Acosta, Cresencio Craig
--- NOTE | 2018-04-13 22:51 | P.PNCA ---
Subjective Interval history: No complaints Appears better Heart rates controlled Medications and Allergies Active Medications: Active Medications Al Hydroxide/Mg Hydroxide (Milk Of Magnesia Liq) 30 ml PO DAILY [facility] Last Admin: 04/13/18 08:45 Dose: 30 ml Albuterol (Duoneb Neb (Prn)) 1 ampul NEB Q2HR NEB PRN PRN Reason: WHEEZING Last Admin: 04/12/18 04:58 Dose: 1 ampul Albuterol (Duoneb Neb (Jose)) 1 ampul NEB Q6HR NEB [facility] Last Admin: 04/13/18 20:51 Dose: 1 ampul Aspirin (Aspirin Chew) 81 mg PO DAILY [facility] Last Admin: 04/13/18 08:45 Dose: 81 mg Bisacodyl (Dulcolax Supp) 10 mg RECTAL PRN PRN PRN Reason: SEE LABEL COMMENTS Dextrose (D50w Vial) 50 ml IV.PUSH UNSCH PRN PRN Reason: PER HYPOGLYCEMIA PROTOCOL Last Admin: 04/12/18 05:40 Dose: 25 ml Docusate Sodium (Colace Liq) 100 mg PO BID [facility] Last Admin: 04/13/18 21:35 Dose: 100 mg Furosemide (Lasix Inj) 40 mg IV.PUSH BID [facility] Last Admin: 04/13/18 21:35 Dose: 40 mg Glucagon (Glucagon Inj) 1 mg OTHER UNSCH PRN PRN Reason: for Hypoglycemia Protocol Sodium Chloride (Ns Inj) 500 mls @ 30 mls/hr IV.SIG .Q10H [facility] Last Admin: 04/04/18 06:39 Dose: Not Given Acetaminophen (Ofirmev Inj) 1,000 mg in 100 mls @ 400 mls/hr IV.SIG Q6H PRN PRN Reason: PAIN SCALE 1-10 Last Infusion: 04/07/18 18:44 Dose: Infused Piperacillin/Tazobactam/Dextrose (Zosyn 3.375 Gm Premix) 50 mls @ 200 mls/hr IV.SIG Q6H [facility] Last Admin: 04/13/18 21:36 Dose: 100 mls/hr Fentanyl (Fentanyl 10 Mcg/Ml Premix Drip) 2,500 mcg in 250 mls @ 5 mls/hr IV.SIG TITRATE PRN; Protocol PRN Reason: Per Protocol Last Titration: 04/12/18 13:39 Dose: Infused Magnesium Sulfate 4 gm/ Sodium (Chloride) 100 mls @ 50 mls/hr IV.SIG UNSCH PRN PRN Reason: For Magnesium 0.9 - 1.1 mg/dL Potassium Chloride (Kcl 40 Meq Premix Inj) 40 meq in 100 mls @ 25 mls/hr IV.SIG Q2H PRN PRN Reason: For Potassium 2.8 - 3.2 mEq/L Potassium Chloride (Kcl 20 Meq Premix Inj) 20 meq in 100 mls @ 50 mls/hr IV.SIG Q2H PRN PRN Reason: For Potassium 3.3 - 3.5 mEq/L Last Infusion: 04/13/18 16:03 Dose: Infused Potassium Chloride (Kcl 40 Meq Premix Inj) 40 meq in 100 mls @ 25 mls/hr IV.SIG UNSCH PRN PRN Reason: For Potassium 3.3 - 3.5 mEq/L Potassium Chloride (Kcl 20 Meq Premix Inj) 20 meq in 100 mls @ 50 mls/hr IV.SIG Q2H PRN PRN Reason: For Potassium 2.8 - 3.2 mEq/L Last Infusion: 04/13/18 07:00 Dose: Infused Potassium Phosphate 30 mmol/ (Sodium Chloride) 260 mls @ 42 mls/hr IV.SIG UNSCH PRN PRN Reason: SEE LABEL COMMENTS Magnesium Sulfate 2 gm/ Sodium (Chloride) 100 mls @ 50 mls/hr IV.SIG UNSCH PRN PRN Reason: For Magnesium 1.2 - 1.6 mg/dL Sodium Phosphate 30 mmol/ (Sodium Chloride) 260 mls @ 42 mls/hr IV.SIG UNSCH PRN PRN Reason: For Phosphorus < 2.5 mg/dL Heparin Sodium/Dextrose (Heparin/D5w 25,000 U/250 Ml) 25,000 unit in 250 mls @ 17 mls/hr IV.CONT TITRATE PRN; Protocol PRN Reason: Per Protocol Last Titration: 04/13/18 03:00 Dose: 900 units/hr, 9 mls/hr Dextrose (D5w Inj) 1,000 mls @ 42 mls/hr IV.CONT .[id number] [facility] Last Admin: 04/13/18 16:23 Dose: 42 mls/hr Micafungin Sodium 150 mg/ (Sodium Chloride) 100 mls @ 100 mls/hr IV.SIG Q24H JOSE Last Infusion: 04/13/18 17:35 Dose: Infused Dexmedetomidine HCl 200 mcg/ (Sodium Chloride) 50 mls @ 4.75 mls/hr IV.CONT TITRATE PRN; Protocol PRN Reason: Per Protocol Last Titration: 04/12/18 18:13 Dose: 0 mcg/kg/hr, 0 mls/hr Insulin Aspart (Novolog Insulin Correctional Sugar Inj) 0 unit SQ Q4HR [facility]; Protocol Last Admin: 04/13/18 21:35 Dose: Not Given Levothyroxine Sodium (Synthroid) 100 mcg PO DAILY@0600 [facility] Last Admin: 04/13/18 06:31 Dose: 100 mcg Magnesium Oxide (Mag-Ox) 800 mg PO UNSCH PRN PRN Reason: For Magnesium 1.2 - 1.6 mg/dL Miscellaneous (Pill Splitter) 1 each OTHER UNSCH PRN PRN Reason: SEE LABEL COMMENTS Multivitamins/Minerals (Theragran-M) 1 tab PO DAILY [facility] Last Admin: 04/13/18 08:45 Dose: 1 tab Ondansetron HCl (Zofran Inj) 4 mg IV.PUSH Q6H PRN PRN Reason: NAUSEA OR VOMITING Last Admin: 04/08/18 09:29 Dose: 4 mg Pantoprazole Sodium (Protonix Inj) 40 mg IV.PUSH Q12H [facility] Last Admin: 04/13/18 16:22 Dose: 40 mg Paroxetine HCl (Paxil) 10 mg PO DAILY [facility] Last Admin: 04/13/18 08:45 Dose: 10 mg Patient's Own: ( Rosuvastatin [ Rosuvastatin] 20 Mg) 0 each PO DAILY [facility] Polyethylene Glycol (Miralax) 17 gm PO DAILY [facility] Last Admin: 04/13/18 08:45 Dose: 17 gm Potassium Bicarb/Potassium Chloride (K-Lyte Cl Eff) 50 meq PO UNSCH PRN PRN Reason: For Potassium 3.3 - 3.5 mEq/L Potassium Phosphate (K-Phos Original) 2,000 mg PO Q4H PRN PRN Reason: Phosphorus Less Than 2.5 mg/dL Potassium Phosphate (K-Phos Original) 2,000 mg PO UNSCH PRN PRN Reason: SEE LABEL COMMENTS Sennosides (Senokot) 8.6 mg PO HS [facility] Last Admin: 04/13/18 21:36 Dose: 8.6 mg Sodium Biphosphate/Sodium Phosphate (Fleets Enema (Adult)) 118 ml RECTAL UNSCH PRN PRN Reason: SEE LABEL COMMENTS Sodium Chloride (Ns Flush) 2 ml IV.FLUSH BID [facility] Last Admin: 04/13/18 21:36 Dose: 2 ml Sodium Chloride (Ns Flush) 2 ml IV.FLUSH PRN PRN PRN Reason: FLUSH AFTER USING IV ACCESS Sterile Water (Free Water) 250 ml G-TUBE Q6HR [facility] Last Admin: 04/13/18 17:35 Dose: Not Given Terbutaline Sulfate (Brethine Inj) 1 mg SQ UNSCH PRN PRN Reason: For Extravasation Verapamil HCl (Isoptin) 40 mg PO TID [facility] Last Admin: 04/13/18 17:46 Dose: 40 mg Allergies Allergy/AdvReac Type Severity Reaction Status Date / Time atorvastatin AdvReac Hypotension Verified 04/04/18 06:21 simvastatin AdvReac Hypotension Verified 04/04/18 06:21 Home Medications Medication Instructions Recorded Confirmed Type ciprofloxacin HCl [Cipro] 500 mg PO Q12H 02/16/18 04/04/18 History coenzyme Q10 [Co Q-10] 10 mg PO TID 02/16/18 04/04/18 History furosemide 40 mg PO BID 02/16/18 04/04/18 History losartan 50 mg PO DAILY 02/16/18 04/04/18 History pantoprazole 40 mg PO DAILY 02/16/18 04/04/18 History paroxetine HCl 10 mg PO DAILY 02/16/18 04/04/18 History potassium chloride [K-Tab] 10 meq PO DAILY 02/16/18 04/04/18 History ranitidine HCl 150 mg PO BID 02/16/18 04/04/18 History rosuvastatin 20 mg PO DAILY 02/16/18 04/04/18 History verapamil 180 mg PO DAILY 02/16/18 04/04/18 History warfarin 5 mg PO DAILY 02/16/18 04/04/18 History aspirin 81 mg PO DAILY 03/09/18 04/04/18 History nitroglycerin 0.4 mg SUBLINGUAL Q5-15M PRN 03/09/18 04/04/18 History Physical Exam Vital signs: Vital Signs 04/13/18 00:00 04/13/18 04:00 04/13/18 05:41 Temperature 97.4 F L 98.0 F Pulse Rate 75 81 86 Respiratory Rate 18 18 22 Blood Pressure 142/66 H 162/73 H Pulse Oximetry 98 96 04/13/18 07:00 04/13/18 07:58 04/13/18 09:45 Temperature 97.6 F Pulse Rate 98 H 70 Respiratory Rate 18 17 Blood Pressure 142/83 H Pulse Oximetry 99 96 98 04/13/18 11:00 04/13/18 12:06 04/13/18 15:00 Temperature 98.3 F Pulse Rate 103 H 93 H Respiratory Rate 20 20 Blood Pressure 146/74 H 139/72 Pulse Oximetry 98 97 97 04/13/18 15:37 04/13/18 16:32 04/13/18 20:53 Temperature Pulse Rate 101 H 91 H Respiratory Rate 18 18 Blood Pressure Pulse Oximetry 99 96 Intake & Output 04/13/18 04/13/18 04/14/18 06:59 18:59 06:59 Intake Total 700 / 700 1775 / 1775 Output Total 1380 / 1380 870 / 870 Balance -680 / -680 905 / 905 Weight 93.5 kg Intake: IV 200 / 200 1425 / 1425 D5W Inj 1,000 ML @ 42 mls/hr IV 1000 / 1000 .CONT .[id number] JOSE Rx#:[id number] Diflucan 200 mg Premix Bag 100 100 / 100 ML @ 100 mls/hr IV.SIG Q24H JOSE Rx#:[id number] Mycamine Inj 150 MG In NS Inj 100 / 100 100 ML @ 100 mls/hr IV.SIG Q24H JOSE Rx#:[id number] Zosyn 3.375 GM Premix 50 ML @ 100 / 100 100 / 100 200 mls/hr IV.SIG Q6H JOSE Rx#: [id number] KCl 20 mEq Premix Inj 20 meq In 225 / 225 100 ml @ 50 mls/hr IV.SIG Q2H PRN Rx#:[id number] Oral 0 / 0 Tube Irrigant 350 / 350 Water Bolus Amount 500 / 500 Output: Urine Amount (Catheter) 1300 / 1300 650 / 650 Indwelling Urethral Catheter 1300 / 1300 650 / 650 Gastric Drainage 50 / 50 200 / 200 Right Nare Nasogastric Tube 50 / 50 200 / 200 Wound Drainage 30 / 30 20 / 20 # 1 Right Anterior Abdomen 30 / 30 15 / 15 # 2 Left Anterior Abdomen 0 / 0 5 / 5 Other: # Bowel Movements 0 Narrative: GENERAL: NAD, stable SKIN: Warm and dry. HEAD: Atraumatic. Normocephalic. EYES: Pupils equal and round. No scleral icterus. No injection or drainage. ENT: No nasal bleeding or discharge. Mucous membranes pink and moist. NECK: Trachea midline. No JVD. CARDIOVASCULAR: Irregularly irregular RESPIRATORY: No accessory muscle use. Decreased breath sounds bilaterally GASTROINTESTINAL: Abdomen soft, non-tender, nondistended. Hepatic and splenic margins not palpable. OANH drains in place with maroon fluid MUSCULOSKELETAL: Extremities without clubbing. Toes appear better, right warm and no longer dusky, left still mildly dusky NEUROLOGICAL: No focal deficits - Urinary Catheter Management Indwelling Temp Sensing Catheter Cath placed during this visit: yes Urethral indwelling: No Reason for continuing: Hourly intake/output Insertion date: 04/04/18 Insertion time: 07:52 Indwelling Urethral Catheter Cath placed during this visit: yes Reason for continuing: Hourly intake/output Insertion date: 04/08/18 Insertion time: 16:51 Results 04/13/18 01:58 04/13/18 01:58 Cardiac Enzymes 04/12/18 04/13/18 Range/Units 01:43 01:58 AST 171 H 89 H (15-37) U/L Coagulation 04/12/18 04/12/18 04/12/18 Range/Units 01:43 05:20 18:11 APTT 194.2 H* D 68.5 H D 80.0 H (23.4-31.7) sec 04/13/18 04/13/18 04/13/18 Range/Units 01:58 09:40 18:19 APTT 89.5 H 40.6 H D 49.2 H D (23.4-31.7) sec CBC 04/12/18 04/13/18 Range/Units 01:43 01:58 WBC 28.4 H 30.2 H (4.0-11.0) th/mm3 RBC 3.29 L 3.46 L (4.00-5.30) mil/mm3 Hgb 9.6 L 10.1 L (11.6-15.3) gm/dL Hct 29.0 L 30.4 L (35.0-46.0) % Plt Count 226 210 (150-450) th/mm3 Neut # (Auto) 25.5 H 27.0 H (1.8-7.7) th/mm3 Lymph # (Auto) 0.8 L 1.1 (1.0-4.8) th/mm3 [place] # (Auto) 1.9 H 1.6 H (0.0-0.9) th/mm3 Eos # (Auto) 0.1 0.2 (0.0-0.4) th/mm3 Baso # (Auto) 0.0 0.3 H (0.0-0.2) th/mm3 Comprehensive Metabolic Panel 04/12/18 04/13/18 Range/Units 01:43 01:58 Sodium 147 H 148 H (136-145) meq/L Potassium 4.3 D 3.2 L D (3.5-5.1) meq/L Chloride 116 H 112 H (98-107) meq/L Carbon Dioxide 20.7 L 25.7 (21.0-32.0) meq/L BUN 36 H 31 H (7-18) mg/dL Creatinine 1.17 H 1.11 H (0.50-1.00) mg/dL Calcium 7.4 L* 7.6 L (8.5-10.1) mg/dL AST 171 H 89 H (15-37) U/L ALT 124 H 90 H (10-53) U/L Alkaline Phosphatase 94 96 (45-117) U/L Total Protein 5.0 L 5.1 L (6.4-8.2) g/dL Albumin 1.5 L 1.5 L (3.4-5.0) g/dL Intake and Output 04/13/18 04/13/18 04/13/18 06:59 14:59 22:59 Intake Total 700 / 700 125 / 125 1650 / 1650 Output Total 1380 / 1380 870 / 870 Balance -680 / -680 125 / 125 780 / 780 Intake: IV 200 / 200 125 / 125 1300 / 1300 D5W Inj 1,000 ML @ 42 mls/hr IV 1000 / 1000 .CONT .[id number] JOSE Rx#:[id number] Diflucan 200 mg Premix Bag 100 100 / 100 ML @ 100 mls/hr IV.SIG Q24H JOSE Rx#:[id number] Mycamine Inj 150 MG In NS Inj 100 / 100 100 ML @ 100 mls/hr IV.SIG Q24H JOSE Rx#:[id number] Zosyn 3.375 GM Premix 50 ML @ 100 / 100 100 / 100 200 mls/hr IV.SIG Q6H JOSE Rx#: [id number] KCl 20 mEq Premix Inj 20 meq In 125 / 125 100 / 100 100 ml @ 50 mls/hr IV.SIG Q2H PRN Rx#:[id number] Oral 0 / 0 Tube Irrigant 350 / 350 Water Bolus Amount 500 / 500 Output: Urine Amount (Catheter) 1300 / 1300 650 / 650 Indwelling Urethral Catheter 1300 / 1300 650 / 650 Gastric Drainage 50 / 50 200 / 200 Right Nare Nasogastric Tube 50 / 50 200 / 200 Wound Drainage 30 / 30 20 / 20 # 1 Right Anterior Abdomen 30 / 30 15 / 15 # 2 Left Anterior Abdomen 0 / 0 5 / 5 Other: # Bowel Movements 0 Weight 93.5 kg - Imaging and Cardiology Imaging: Impressions Abdomen/Pelvis CT 04/12/18 00:00 CONCLUSION: 1. The previously noted free air on the prior study has resolved. Patient is recently status post abdominal surgery. There are surgical drains in the upper abdomen. 2. There is a trace of fluid adjacent to the liver. There is a small amount of free fluid deep in the pelvis. 3. Multiple dilated loops of small bowel with fluid and air suggestive of a postsurgical ileus. 4. There continues to be a prominent hiatal hernia. 5. Small bilateral pleural effusions with atelectasis in both lung bases. Assessment and Plan - Assessment (1) Severe aortic stenosis Code(s): I35.0 - Nonrheumatic aortic (valve) stenosis Status: Chronic (2) Coronary artery disease involving [place] coronary artery Code(s): I25.10 - Atherosclerotic heart disease of [place] coronary artery without angina pectoris Status: Acute (3) Congestive heart failure (CHF) Code(s): I50.9 - Heart failure, unspecified Status: Chronic (4) Atrial fibrillation Code(s): I48.91 - Unspecified atrial fibrillation Status: Chronic (5) S/P CABG (coronary artery bypass graft) Code(s): Z95.1 - Presence of aortocoronary bypass graft Status: Acute - Plan 1) CAD s/p CABGx2 2) Residual Possible TAVR in the future Not a BAV candidate at this time with at least moderate AR 3) AFib Cardioverted before abdominal surgery Back in AFib Heart rates stable after digoxin load Now on Verapamil controlling rates Start on heparin drip, will have to restart Coumadin at some point Will have to see how she does hemodynamically going further, might need to cardiovert again, stable for now 4) Gastric ulcer/perfs Per surgery
[2018-04-14] MEDS: Pantoprazole Inj 40 MG Vial IV.PUSH SCH ×2 (00:36→11:35)
[2018-04-14] MEDS: Insulin NovoLOG Aspart Correctional Sugar Inj SQ SCH ×6 (00:39→21:02)
[2018-04-14] MEDS: Piperacil/Tazo 3.375 GM Premix 50 ML IV.SIG SCH ×4 (03:46→21:01)
[2018-04-14 05:03] LABS: Baso # (Auto) 0.4 th/mm3 (0.0-0.2); Baso % (Auto) 1.1 % (0.0-2.0); Eos # (Auto) 0.3 th/mm3 (0.0-0.4); Eos % (Auto) 0.8 % (0.0-4.0); Hematocrit 32.1 % (35.0-46.0); Hemoglobin 10.6 gm/dL (11.6-15.3); Lymph # (Auto) 1.6 th/mm3 (1.0-4.8); Lymph % (Auto) 4.6 % (9.0-44.0); Mean Corpuscular HGB Conc 33.1 % (32.0-36.0); Mean Corpuscular Hemoglobin 29.1 pg (27.0-34.0); Mean Corpuscular Volume 87.8 fL (80.0-100.0); Mono # (Auto) 1.9 th/mm3 (0.0-0.9); Mono % (Auto) 5.5 % (0.0-8.0); Neut # (Auto) 31.4 th/mm3 (1.8-7.7); Platelet Count 208 th/mm3 (150-450); Red Blood Count 3.65 mil/mm3 (4.00-5.30); Red Cell Distribution Width 16.1 % (11.6-17.2); White Blood Count 35.6 th/mm3 (4.0-11.0)
[2018-04-14 05:19] LABS: Alanine Aminotransferase 65 U/L (10-53); Albumin 1.6 g/dL (3.4-5.0); Alkaline Phosphatase 99 U/L (45-117); Anion Gap 11 meq/L (5-15); Aspartate Aminotransferase 66 U/L (15-37); Blood Urea Nitrogen 25 mg/dL (7-18); Calcium 7.6 mg/dL (8.5-10.1); Carbon Dioxide 27.7 meq/L (21.0-32.0); Chloride 109 meq/L (98-107); Glomerular Filtration Rate 51 mL/min (>89); Glucose,Random 78 mg/dL (74-106); Magnesium 2.2 mg/dL (1.5-2.5); Phosphorus 3.2 mg/dL (2.5-4.9); Potassium 3.5 meq/L (3.5-5.1); Sodium 148 meq/L (136-145); Total Protein 5.5 g/dL (6.4-8.2)
[2018-04-14 05:27] LABS: Lymphocytes 5 % (9-44); Metamyelocytes 1 % (0-1); Monocytes 9 % (0-8); Platelet Estimate Normal (Normal); Platelet Morphology Normal (Normal); Tallied Nucleated RBC 2 (0-0)
[2018-04-14 05:29] LABS: Toxic Granulation 2+
[2018-04-14] MEDS: Levothyroxine 100 MCG Tablet PO SCH (06:29)
[2018-04-14] MEDS: Potassium Chlor 20 mEq Premix 20 MEQ/100 ML PIGGYBACK IV.SIG PRN ×2 (06:30→08:42)
--- NOTE | 2018-04-14 08:34 | P.CON ---
History of Present Illness Service: Ophthalmology Reason for Consult: rule out fungal endophthalmitis Primary Care Provider: No Primary Care Physician Chief Complaint: Weakness History of Present Illness: 77-year-old female s/p CABG 04/04, s/p Laparoscopic partial reduction of paraesophageal hernia 04/09. Blood culture came back positive for Roc[place]. Ophthalmology consulted to rule out fungal endophthalmitis. Pt denies any new vision changes. Ocular history significant for macular degeneration and bilateral cataract surgery. FORMERLY [facility], [facility] - History History Provided By: Patient - Medical History Medical History: Medical History (Last Reviewed 04/11/18 @ 07:54 by Girish Dotson, PT) Adverse anesthesia outcome Afib Aortic stenosis Asthma CAD (coronary artery disease) CHF (congestive heart failure) HLD (hyperlipidemia) HTN (hypertension) Hiatal hernia Hypothyroid LBBB (left bundle branch block) Mitral regurgitation Myocardial infarct Sleep apnea TIA (transient ischemic attack) UTI (urinary tract infection) - Surgical History Surgical History: Surgical History (Last Reviewed 04/09/18 @ 14:27 by Ema Knox MD) History of coronary artery bypass graft - Family History Family History: Family History (Last Updated 04/09/18 @ 14:27 by Ema Knox MD) Other Family history non-contributory - Tobacco History Second Hand Smoke Exposure: No Smoking Status: Former smoker Tobacco Type: Cigarettes - Alcohol History How Often Do You Have a Drink Containing Alcohol: Monthly or less - Substance Use History Substance History: No History of Abuse - Travel History Recent Travel in the [place] Within the Last 8 Weeks: No Recent Travel Out of the Country Within the Last 8 Weeks: No Medications and Allergies Active Medications: Active Medications Al Hydroxide/Mg Hydroxide (Milk Of Tono Liq) 30 ml PO DAILY JOSE Last Admin: 04/13/18 08:45 Dose: 30 ml Albuterol (Duoneb Neb (Prn)) 1 ampul NEB Q2HR NEB PRN PRN Reason: WHEEZING Last Admin: 04/12/18 04:58 Dose: 1 ampul Albuterol (Duoneb Neb (Jose)) 1 ampul NEB Q6HR NEB JOSE Last Admin: 04/14/18 04:15 Dose: 1 ampul Aspirin (Aspirin Chew) 81 mg PO DAILY JOSE Last Admin: 04/13/18 08:45 Dose: 81 mg Bisacodyl (Dulcolax Supp) 10 mg RECTAL PRN PRN PRN Reason: SEE LABEL COMMENTS Dextrose (D50w Vial) 50 ml IV.PUSH UNSCH PRN PRN Reason: PER HYPOGLYCEMIA PROTOCOL Last Admin: 04/12/18 05:40 Dose: 25 ml Docusate Sodium (Colace Liq) 100 mg PO BID [facility] Last Admin: 04/13/18 21:35 Dose: 100 mg Furosemide (Lasix Inj) 40 mg IV.PUSH BID [facility] Last Admin: 04/13/18 21:35 Dose: 40 mg Glucagon (Glucagon Inj) 1 mg OTHER UNSCH PRN PRN Reason: for Hypoglycemia Protocol Sodium Chloride (Ns Inj) 500 mls @ 30 mls/hr IV.SIG .Q10H [facility] Last Admin: 04/04/18 06:39 Dose: Not Given Acetaminophen (Ofirmev Inj) 1,000 mg in 100 mls @ 400 mls/hr IV.SIG Q6H PRN PRN Reason: PAIN SCALE 1-10 Last Infusion: 04/07/18 18:44 Dose: Infused Piperacillin/Tazobactam/Dextrose (Zosyn 3.375 Gm Premix) 50 mls @ 200 mls/hr IV.SIG Q6H [facility] Last Infusion: 04/14/18 04:47 Dose: Infused Fentanyl (Fentanyl 10 Mcg/Ml Premix Drip) 2,500 mcg in 250 mls @ 5 mls/hr IV.SIG TITRATE PRN; Protocol PRN Reason: Per Protocol Last Titration: 04/12/18 13:39 Dose: Infused Magnesium Sulfate 4 gm/ Sodium (Chloride) 100 mls @ 50 mls/hr IV.SIG UNSCH PRN PRN Reason: For Magnesium 0.9 - 1.1 mg/dL Potassium Chloride (Kcl 40 Meq Premix Inj) 40 meq in 100 mls @ 25 mls/hr IV.SIG Q2H PRN PRN Reason: For Potassium 2.8 - 3.2 mEq/L Potassium Chloride (Kcl 20 Meq Premix Inj) 20 meq in 100 mls @ 50 mls/hr IV.SIG Q2H PRN PRN Reason: For Potassium 3.3 - 3.5 mEq/L Last Admin: 04/14/18 06:30 Dose: 25 mls/hr Potassium Chloride (Kcl 40 Meq Premix Inj) 40 meq in 100 mls @ 25 mls/hr IV.SIG UNSCH PRN PRN Reason: For Potassium 3.3 - 3.5 mEq/L Potassium Chloride (Kcl 20 Meq Premix Inj) 20 meq in 100 mls @ 50 mls/hr IV.SIG Q2H PRN PRN Reason: For Potassium 2.8 - 3.2 mEq/L Last Infusion: 04/13/18 07:00 Dose: Infused Potassium Phosphate 30 mmol/ (Sodium Chloride) 260 mls @ 42 mls/hr IV.SIG UNSCH PRN PRN Reason: SEE LABEL COMMENTS Magnesium Sulfate 2 gm/ Sodium (Chloride) 100 mls @ 50 mls/hr IV.SIG UNSCH PRN PRN Reason: For Magnesium 1.2 - 1.6 mg/dL Sodium Phosphate 30 mmol/ (Sodium Chloride) 260 mls @ 42 mls/hr IV.SIG UNSCH PRN PRN Reason: For Phosphorus < 2.5 mg/dL Heparin Sodium/Dextrose (Heparin/D5w 25,000 U/250 Ml) 25,000 unit in 250 mls @ 17 mls/hr IV.CONT TITRATE PRN; Protocol PRN Reason: Per Protocol Last Titration: 04/13/18 03:00 Dose: 900 units/hr, 9 mls/hr Dextrose (D5w Inj) 1,000 mls @ 42 mls/hr IV.CONT .[id number] [facility] Last Admin: 04/13/18 16:23 Dose: 42 mls/hr Micafungin Sodium 150 mg/ (Sodium Chloride) 100 mls @ 100 mls/hr IV.SIG Q24H [facility] Last Infusion: 04/13/18 17:35 Dose: Infused Dexmedetomidine HCl 200 mcg/ (Sodium Chloride) 50 mls @ 4.75 mls/hr IV.CONT TITRATE PRN; Protocol PRN Reason: Per Protocol Last Titration: 04/12/18 18:13 Dose: 0 mcg/kg/hr, 0 mls/hr Insulin Aspart (Novolog Insulin Correctional Sugar Inj) 0 unit SQ Q4HR [facility]; Protocol Last Admin: 04/14/18 08:03 Dose: Not Given Levothyroxine Sodium (Synthroid) 100 mcg PO DAILY@0600 [facility] Last Admin: 04/14/18 06:29 Dose: 100 mcg Magnesium Oxide (Mag-Ox) 800 mg PO UNSCH PRN PRN Reason: For Magnesium 1.2 - 1.6 mg/dL Miscellaneous (Pill Splitter) 1 each OTHER UNSCH PRN PRN Reason: SEE LABEL COMMENTS Multivitamins/Minerals (Theragran-M) 1 tab PO DAILY [facility] Last Admin: 04/13/18 08:45 Dose: 1 tab Ondansetron HCl (Zofran Inj) 4 mg IV.PUSH Q6H PRN PRN Reason: NAUSEA OR VOMITING Last Admin: 04/08/18 09:29 Dose: 4 mg Pantoprazole Sodium (Protonix Inj) 40 mg IV.PUSH Q12H [facility] Last Admin: 04/14/18 00:36 Dose: 40 mg Paroxetine HCl (Paxil) 10 mg PO DAILY [facility] Last Admin: 04/13/18 08:45 Dose: 10 mg Patient's Own: ( Rosuvastatin [ Rosuvastatin] 20 Mg) 0 each PO DAILY [facility] Polyethylene Glycol (Miralax) 17 gm PO DAILY [facility] Last Admin: 04/13/18 08:45 Dose: 17 gm Potassium Bicarb/Potassium Chloride (K-Lyte Cl Eff) 50 meq PO UNSCH PRN PRN Reason: For Potassium 3.3 - 3.5 mEq/L Potassium Phosphate (K-Phos Original) 2,000 mg PO Q4H PRN PRN Reason: Phosphorus Less Than 2.5 mg/dL Potassium Phosphate (K-Phos Original) 2,000 mg PO UNSCH PRN PRN Reason: SEE LABEL COMMENTS Sennosides (Senokot) 8.6 mg PO HS [facility] Last Admin: 04/13/18 21:36 Dose: 8.6 mg Sodium Biphosphate/Sodium Phosphate (Fleets Enema (Adult)) 118 ml RECTAL UNSCH PRN PRN Reason: SEE LABEL COMMENTS Sodium Chloride (Ns Flush) 2 ml IV.FLUSH BID [facility] Last Admin: 04/13/18 21:36 Dose: 2 ml Sodium Chloride (Ns Flush) 2 ml IV.FLUSH PRN PRN PRN Reason: FLUSH AFTER USING IV ACCESS Sterile Water (Free Water) 250 ml G-TUBE Q6HR [facility] Last Admin: 04/14/18 06:29 Dose: 250 ml Terbutaline Sulfate (Brethine Inj) 1 mg SQ UNSCH PRN PRN Reason: For Extravasation Verapamil HCl (Isoptin) 40 mg PO TID [facility] Last Admin: 04/13/18 17:46 Dose: 40 mg Allergies Allergy/AdvReac Type Severity Reaction Status Date / Time atorvastatin AdvReac Hypotension Verified 04/04/18 06:21 simvastatin AdvReac Hypotension Verified 04/04/18 06:21 Home Medications Medication Instructions Recorded Confirmed Type ciprofloxacin HCl [Cipro] 500 mg PO Q12H 02/16/18 04/04/18 History coenzyme Q10 [Co Q-10] 10 mg PO TID 02/16/18 04/04/18 History furosemide 40 mg PO BID 02/16/18 04/04/18 History losartan 50 mg PO DAILY 02/16/18 04/04/18 History pantoprazole 40 mg PO DAILY 02/16/18 04/04/18 History paroxetine HCl 10 mg PO DAILY 02/16/18 04/04/18 History potassium chloride [K-Tab] 10 meq PO DAILY 02/16/18 04/04/18 History ranitidine HCl 150 mg PO BID 02/16/18 04/04/18 History rosuvastatin 20 mg PO DAILY 02/16/18 04/04/18 History verapamil 180 mg PO DAILY 02/16/18 04/04/18 History warfarin 5 mg PO DAILY 02/16/18 04/04/18 History aspirin 81 mg PO DAILY 03/09/18 04/04/18 History nitroglycerin 0.4 mg SUBLINGUAL Q5-15M PRN 03/09/18 04/04/18 History Physical Exam Vital signs: Vital Signs 04/13/18 09:45 04/13/18 11:00 04/13/18 12:06 Temperature 98.3 F Pulse Rate 70 103 H Respiratory Rate 17 20 Blood Pressure 146/74 H Pulse Oximetry 98 98 97 04/13/18 15:00 04/13/18 15:37 04/13/18 16:32 Temperature Pulse Rate 93 H 101 H Respiratory Rate 20 18 Blood Pressure 139/72 Pulse Oximetry 97 99 04/13/18 20:00 04/13/18 20:53 04/14/18 00:00 Temperature 98.1 F 98.7 F Pulse Rate 84 91 H 104 H Respiratory Rate 18 18 18 Blood Pressure 165/78 H 154/72 H Pulse Oximetry 97 96 96 04/14/18 04:00 04/14/18 04:16 04/14/18 07:00 Temperature 98.2 F 98.7 F Pulse Rate 100 H 90 113 H Respiratory Rate 20 18 20 Blood Pressure 156/75 H 144/76 H Pulse Oximetry 98 97 04/14/18 07:56 Temperature Pulse Rate Respiratory Rate Blood Pressure Pulse Oximetry 97 Intake & Output 04/13/18 04/14/18 04/14/18 18:59 06:59 18:59 Intake Total 1775 / 1775 600 / 600 Output Total 870 / 870 1170 / 1170 Balance 905 / 905 -570 / -570 Weight 94 kg Intake: IV 1425 / 1425 100 / 100 D5W Inj 1,000 ML @ 42 mls/hr IV 1000 / 1000 .CONT .[id number] JOSE Rx#:[id number] Mycamine Inj 150 MG In NS Inj 100 / 100 100 ML @ 100 mls/hr IV.SIG Q24H JOSE Rx#:[id number] Zosyn 3.375 GM Premix 50 ML @ 100 / 100 100 / 100 200 mls/hr IV.SIG Q6H JOSE Rx#: [id number] KCl 20 mEq Premix Inj 20 meq In 225 / 225 100 ml @ 50 mls/hr IV.SIG Q2H PRN Rx#:[id number] Oral 0 / 0 Tube Irrigant 350 / 350 Water Bolus Amount 500 / 500 Output: Urine Amount (Catheter) 650 / 650 1100 / 1100 Indwelling Urethral Catheter 650 / 650 1100 / 1100 Gastric Drainage 200 / 200 50 / 50 Right Nare Nasogastric Tube 200 / 200 50 / 50 Wound Drainage 20 / 20 20 / 20 # 1 Right Anterior Abdomen 15 / 15 20 / 20 # 2 Left Anterior Abdomen 5 / 5 0 / 0 Other: # Bowel Movements 1 - Detailed Eye Exam Comments: Va cc at near OD 20/80, OS 20/100 EOM full OU, no diplopia CVF full OU Pupils 2-1 no APD OU IOP normal to palpation OU Anterior exam OD - normal eyelid, C/S W&Q, K clear, AC deep, pupil round, PCIOL OS - normal eyelid, C/S W&Q, K clear, AC deep, pupil round, PCIOL Dilated exam OD - ON s/p/f, ves normal, vit clear, retina flat, macular drusen OS - ON s/p/f, ves normal, vit clear, retina flat, macular drusen - Urinary Catheter Management Indwelling Temp Sensing Catheter Cath placed during this visit: yes Urethral indwelling: No Reason for continuing: Hourly intake/output Insertion date: 04/04/18 Insertion time: 07:52 Indwelling Urethral Catheter Cath placed during this visit: yes Reason for continuing: Hourly intake/output Insertion date: 04/08/18 Insertion time: 16:51 Assessment and Plan - Assessment (1) Fungemia Code(s): B49 - Unspecified mycosis Status: Acute Plan: No fungal endophthalmitis seen on exam.
[2018-04-14] MEDS: Multivitamin/Minerals Therapeutic Tablet PO SCH (08:39)
[2018-04-14] MEDS: Docusate Sodium Liq 100 MG/10 ML UDC PO SCH ×2 (08:39→22:22)
[2018-04-14] MEDS: Polyethylene Glycol 3350 17 GM Packet PO SCH (08:40)
--- NOTE | 2018-04-14 09:49 | P.PNCC ---
Subjective Subjective Remarks/Hospital Course: This is a 77-year-old female. Date of admission 04/04/2018. Date of consultation 04/06/2018. Patient has no history of aortic stenosis, coronary disease, hypertension, hyperlipidemia, gastroesophageal reflux disease, hypothyroidism and depression. On 04/04, patient had a two-vessel CABG ZAPATA to LAD, reverse saphenous vein graft to OM of left circumflex with left EVH and CLARA excision. Without complications. Today, patient this morning was in atrial fibrillation with rapid ventricular response. Received 150 mg IV amiodarone and started on oral amiodarone 400 mg along with 25 mg of oral metoprolol tartrate.. She became bradycardic this afternoon and we are asked to evaluate the patient. She is received 2 g of calcium chloride and is currently been started on dopamine drip. Her heart rate and blood pressure immediately improved after the infusion of calcium chloride. In reviewing laboratories, potassium magnesium are within normal limits. She does have a new leukocytosis of 19,000. She denies shortness of breath. She is more confused likely due to hypoperfusion 04/07 Patient is lying in bed in NAD. Feeling nauseas, denies any abdominal pain. 04/08 Patient was given Lopressor, Cardizem and Digoxin overnight for tachycardic became hypotensive and started on Neosyn ( current MAP 81mmHg). Renal function worse today with Cr: 2.22 from 1.76 04/09 Patient s/p Laparoscopic partial reduction of paraesophageal hernia and wedge resection of greater curvature of stomach. Remains intubated postop on Levophed 3 mics, sedated with Fentanyl and on is Precedex drip. s/p [id number] PRBC overnight Hgb 9.6 this morning from 6.8 04/10 Patient remains intubated and sedated. On Levophed 2 mics. :100.4 at 4am, renal function is improving with Cr: 1.40 from 1.99 04/11 Patient remains intubated off Levophed. On Fentanyl infusion for sedation. Renal function is improving with Cr:1.18 from 1.4. Afebrile. 04/12 Patient is awake and alert on CPAP with PS 10, PEEP:5 and FIO2 35%, s/p CT guided right thoracentesis yesterday with removal 550ml. Afebrile. On Heparin drip. 04/13 Patient was extubated yesterday on 2L oxygen, on Heparin drip. Afebrile. 04/14 No events overnight. Afebrile, WBC is rising 35 today from 30. On Heparin drip. Objective Vital Signs / I&O: Vital Signs 04/13/18 09:45 04/13/18 11:00 04/13/18 12:06 Temperature 98.3 F Pulse Rate 70 103 H Respiratory Rate 17 20 Blood Pressure 146/74 H Pulse Oximetry 98 98 97 04/13/18 15:00 04/13/18 15:37 04/13/18 16:32 Temperature Pulse Rate 93 H 101 H Respiratory Rate 20 18 Blood Pressure 139/72 Pulse Oximetry 97 99 04/13/18 20:00 04/13/18 20:53 04/14/18 00:00 Temperature 98.1 F 98.7 F Pulse Rate 84 91 H 104 H Respiratory Rate 18 18 18 Blood Pressure 165/78 H 154/72 H Pulse Oximetry 97 96 96 04/14/18 04:00 04/14/18 04:16 04/14/18 07:00 Temperature 98.2 F 98.7 F Pulse Rate 100 H 90 113 H Respiratory Rate 20 18 20 Blood Pressure 156/75 H 144/76 H Pulse Oximetry 98 97 04/14/18 07:56 Temperature Pulse Rate Respiratory Rate Blood Pressure Pulse Oximetry 97 Intake & Output 04/13/18 04/14/18 04/14/18 18:59 06:59 18:59 Intake Total 1775 / 1775 600 / 600 280 / 280 Output Total 870 / 870 1170 / 1170 Balance 905 / 905 -570 / -570 280 / 280 Weight 94 kg Intake: IV 1425 / 1425 100 / 100 280 / 280 Precedex Inj 200 MCG In NS Inj 30 / 30 48 ML @ 0.2 MCG/KG/HR 4.75 mls/ hr IV.CONT TITRATE PRN Rx#: [id number] D5W Inj 1,000 ML @ 42 mls/hr IV 1000 / 1000 .CONT .[id number] YASH Rx#:[id number] Mycamine Inj 150 MG In NS Inj 100 / 100 100 ML @ 100 mls/hr IV.SIG Q24H [facility] Rx#:[id number] Zosyn 3.375 GM Premix 50 ML @ 100 / 100 100 / 100 50 / 50 200 mls/hr IV.SIG Q6H YASH Rx#: [id number] KCl 20 mEq Premix Inj 20 meq In 225 / 225 200 / 200 100 ml @ 50 mls/hr IV.SIG Q2H PRN Rx#:[id number] Oral 0 / 0 Tube Irrigant 350 / 350 Water Bolus Amount 500 / 500 Output: Urine Amount (Catheter) 650 / 650 1100 / 1100 Indwelling Urethral Catheter 650 / 650 1100 / 1100 Gastric Drainage 200 / 200 50 / 50 Right Nare Nasogastric Tube 200 / 200 50 / 50 Wound Drainage 20 / 20 20 / 20 # 1 Right Anterior Abdomen 15 / 15 20 / 20 # 2 Left Anterior Abdomen 5 / 5 0 / 0 Other: # Bowel Movements 1 Result Diagrams: 04/14/18 04:43 04/14/18 04:43 Other Results: Laboratory Results - last 12 hr 04/14/18 04/14/18 04/14/18 00:39 04:35 04:43 WBC 35.6 H RBC 3.65 L Hgb 10.6 L Hct 32.1 L MCV 87.8 MCH 29.1 MCHC 33.1 RDW 16.1 Plt Count 208 MPV 9.0 Prelim Diff (Auto) Slide review pending Neut % (Auto) 88.0 H Lymph % (Auto) 4.6 L [place] % (Auto) 5.5 Eos % (Auto) 0.8 Baso % (Auto) 1.1 Neut # (Auto) 31.4 H Lymph # (Auto) 1.6 [place] # (Auto) 1.9 H Eos # (Auto) 0.3 Baso # (Auto) 0.4 H WBC Differential Manual diff final Seg Neuts % (Manual) 82 H Band Neuts % (Manual) 3 Lymphocytes % (Manual) 5 L Monocytes % (Manual) 9 H Metamyelocytes % (Man) 1 Abs Neuts (Manual) 30.6 H Nucleated RBCs/100 WBC 2 H Differential Comment . Toxic Granulation 2+ H Platelet Estimate Normal Platelet Morphology Normal Hematology Comments APTT 41.6 H Sodium Potassium Chloride Carbon Dioxide Anion Gap BUN Creatinine Estimated GFR POC Glucose 94 Random Glucose Calcium Phosphorus Magnesium Total Bilirubin AST ALT Alkaline Phosphatase Total Protein Albumin 04/14/18 04/14/18 04:43 07:51 WBC RBC Hgb Hct MCV MCH MCHC RDW Plt Count MPV Prelim Diff (Auto) Neut % (Auto) Lymph % (Auto) Custer % (Auto) Eos % (Auto) Baso % (Auto) Neut # (Auto) Lymph # (Auto) [place] # (Auto) Eos # (Auto) Baso # (Auto) WBC Differential Seg Neuts % (Manual) Band Neuts % (Manual) Lymphocytes % (Manual) Monocytes % (Manual) Metamyelocytes % (Man) Abs Neuts (Manual) Nucleated RBCs/100 WBC Differential Comment Toxic Granulation Platelet Estimate Platelet Morphology Hematology Comments APTT Sodium 148 H Potassium 3.5 Chloride 109 H Carbon Dioxide 27.7 Anion Gap 11 BUN 25 H Creatinine 1.05 H Estimated GFR 51 L POC Glucose 83 Random Glucose 78 Calcium 7.6 L Phosphorus 3.2 Magnesium 2.2 Total Bilirubin 0.5 AST 66 H ALT 65 H Alkaline Phosphatase 99 Total Protein 5.5 L Albumin 1.6 L Imaging: Abdomen/Bladder Ultrasound 04/08/18 00:00 CONCLUSION: Kidneys within normal limits. Right pleural effusion noted. Chest CT 04/08/18 10:09 CONCLUSION: 1. Large hiatal hernia containing a large portion of the stomach with moderate amount of free air in the hiatal hernia and in the upper abdomen. Distal gastric wall thickening and extraluminal fluid adjacent to the distal stomach. Most likely etiology for the findings is a perforated gastric ulcer. Free fluid is also seen in the upper abdomen. 2. New bilateral lower lobe atelectasis/consolidation and small bilateral pleural effusions. Chest Ultrasound 04/11/18 00:00 CONCLUSION: 1. Left pleural effusion and marked on the skin. Thoracentesis CT 04/11/18 00:00 CONCLUSION: 1. Uncomplicated CT-guided thoracentesis. Abdomen X-Ray 04/11/18 12:13 CONCLUSION: Nonspecific, nonobstructive bowel gas pattern which may represent a mild ileus or gastroenteritis. Chest X-Ray 04/11/18 16:34 CONCLUSION: Status post right thoracentesis. No evidence of pneumothorax. Abdomen/Pelvis CT 04/12/18 00:00 CONCLUSION: 1. The previously noted free air on the prior study has resolved. Patient is recently status post abdominal surgery. There are surgical drains in the upper abdomen. 2. There is a trace of fluid adjacent to the liver. There is a small amount of free fluid deep in the pelvis. 3. Multiple dilated loops of small bowel with fluid and air suggestive of a postsurgical ileus. 4. There continues to be a prominent hiatal hernia. 5. Small bilateral pleural effusions with atelectasis in both lung bases. Objective Remarks: GENERAL: Patient is 77 yo lying in bed intubated SKIN: Warm and dry. HEAD: Normocephalic. EYES: No scleral icterus. No injection or drainage. NECK: Supple, trachea midline. No JVD or lymphadenopathy. CARDIOVASCULAR: Tachycardic without murmurs, gallops, or rubs. RESPIRATORY: Breath sounds equal bilaterally. No accessory muscle use. GASTROINTESTINAL: Abdomen soft, non-tender, nondistended. MUSCULOSKELETAL: No cyanosis, or edema. Neuro: Awake and alert Assessment and Plan - Assessment and Plan Plan: Neuro/Psych: Depressive disorder NOS History of TIA Awake and alert Currently on paroxetine 10 mg daily for depression. CV: Postoperative CABG x2 ZAPATA to LAD, reverse saphenous vein graft to OM with left EVH and CLARA excision -Dr. Warner Atrial fibrillation Essential hypertension by history Hyperlipidemia Coronary artery disease status post PTCA left anterior descending proximal monitor HR and BP keep MAP>65mmHG Lactic acid 2.0 Cardiac catheterization 417 revealed left ear 0.48 cm area. EF 55-60%. Moderate aortic regurgitation. On rosuvastatin 10 mg daily at home. Noted allergies to atorvastatin simvastatin Continue aspirin 81 mg daily Cards is following- Dr. Valle On Heparin drip- Monitor PTT per protocol. Resp: VDRF Extubated 04/12 Obstructive sleep apnea Continue with oxygen keep sats> 92% Bronchodilators, IS Check CXR s/p CT guided right thoracentesis 04/11 with removal 550 ml pleural fluid Exudative effusion by LDH criteria likely 2nd diuretics. GI: s/p Laparoscopic partial reduction of paraesophageal hernia, wedge resection of greater curvature of stomach 04/08 Diverticulosis Gastroesophageal reflux disease Hiatal hernia Start diet if ok with surgery Pantoprazole for GI prophylaxis 04/[address] abd/pelvis: The previously noted free air on the prior study has resolved. Patient is recently status post abdominal surgery. There are surgical drains in the upper abdomen. Multiple dilated loops of small bowel with fluid and air suggestive of a postsurgical ileus. Prominent hiatal hernia. Docusate sodium/senna 1 tablet twice daily for hours along with polythene glycol 17 g daily KUB 04/11: Nonspecific, nonobstructive bowel gas pattern which may represent a mild ileus KUB abdomen 04/07 : Nonspecific bowel gas pattern with scattered small and large bowel gas. 04/08 CT abd/pelvis- Prominent amount of free air and free fluid in the upper abdomen and within a large hiatal hernia. A large portion of the stomach is in a hiatal hernia. Most likely etiology for the findings is a perforated gastric ulcer. 04/08 s/p Laparoscopic partial reduction of paraesophageal hernia, wedge resection of greater curvature of stomach, washout, drain placement performed. Monitor OANH drainage- Surgery- Dr. Craig. Endo: Hypothyroidism Currently on levothyroxine 100 mcg p.o. daily TSH:0.72 Sliding scale insulin with aspart insulin Renal: Acute kidney injury Monitor renal function, I/O's, electrolytes replacement per protocol Decrease Lasix 40mg IV daily Renal US: No hydronephrosis Heme: Leukocytosis Normocytic anemia Chronic warfarin use Monitor CBC, Coags daily.on Heparin drip per cards s/p transfusion 2u PRBC overnight 04/09 ID: Fungemia 04/08 On empiric abx ( Zosyn, Micafungin) Monitor for signs of infections ( fever, WBC ) Follow up BC 04/08: Yeast Seen by Optho- No evidence of endophthalmitis Check C-diff PCR ID is following MSK: Elevated BMI Osteoporosis/osteoarthritis Lumbar radiculopathy Physical therapy evaluate and treat Access -Utilize peripheral IV. Prophylaxis -GI -pantoprazole -DVT-SCD/pharmacological prophylaxis- Heparin dip Level 3
--- NOTE | 2018-04-14 10:04 | P.PNGS ---
Subjective Interval history: She is awake and alert. Denies abdominal pain. Had large BM. WBC continues to increase. Physical Exam Vital signs: Vital Signs 04/13/18 11:00 04/13/18 12:06 04/13/18 15:00 Temperature 98.3 F Pulse Rate 103 H 93 H Respiratory Rate 20 20 Blood Pressure 146/74 H 139/72 Pulse Oximetry 98 97 97 04/13/18 15:37 04/13/18 16:32 04/13/18 20:00 Temperature 98.1 F Pulse Rate 101 H 84 Respiratory Rate 18 18 Blood Pressure 165/78 H Pulse Oximetry 99 97 04/13/18 20:53 04/14/18 00:00 04/14/18 04:00 Temperature 98.7 F 98.2 F Pulse Rate 91 H 104 H 100 H Respiratory Rate 18 18 20 Blood Pressure 154/72 H 156/75 H Pulse Oximetry 96 96 98 04/14/18 04:16 04/14/18 07:00 04/14/18 07:56 Temperature 98.7 F Pulse Rate 90 113 H Respiratory Rate 18 20 Blood Pressure 144/76 H Pulse Oximetry 97 97 Intake & Output 04/13/18 04/14/18 04/14/18 18:59 06:59 18:59 Intake Total 1775 / 1775 600 / 600 280 / 280 Output Total 870 / 870 1170 / 1170 Balance 905 / 905 -570 / -570 280 / 280 Weight 94 kg Intake: IV 1425 / 1425 100 / 100 280 / 280 Precedex Inj 200 MCG In NS Inj 30 / 30 48 ML @ 0.2 MCG/KG/HR 4.75 mls/ hr IV.CONT TITRATE PRN Rx#: [id number] D5W Inj 1,000 ML @ 42 mls/hr IV 1000 / 1000 .CONT .[id number] YASH Rx#:[id number] Mycamine Inj 150 MG In NS Inj 100 / 100 100 ML @ 100 mls/hr IV.SIG Q24H YASH Rx#:[id number] Zosyn 3.375 GM Premix 50 ML @ 100 / 100 100 / 100 50 / 50 200 mls/hr IV.SIG Q6H YASH Rx#: [id number] KCl 20 mEq Premix Inj 20 meq In 225 / 225 200 / 200 100 ml @ 50 mls/hr IV.SIG Q2H PRN Rx#:[id number] Oral 0 / 0 Tube Irrigant 350 / 350 Water Bolus Amount 500 / 500 Output: Urine Amount (Catheter) 650 / 650 1100 / 1100 Indwelling Urethral Catheter 650 / 650 1100 / 1100 Gastric Drainage 200 / 200 50 / 50 Right Nare Nasogastric Tube 200 / 200 50 / 50 Wound Drainage 20 / 20 20 / 20 # 1 Right Anterior Abdomen 15 / 15 20 / 20 # 2 Left Anterior Abdomen 5 / 5 0 / 0 Other: # Bowel Movements 1 Narrative: NAD Abd: soft, ngt to suction, OANH ss no blue dye in drains - Urinary Catheter Management Indwelling Temp Sensing Catheter Cath placed during this visit: yes Urethral indwelling: No Reason for continuing: Hourly intake/output Insertion date: 04/04/18 Insertion time: 07:52 Indwelling Urethral Catheter Cath placed during this visit: yes Reason for continuing: Hourly intake/output Insertion date: 04/08/18 Insertion time: 16:51 Results - Labs 04/14/18 04:43 04/14/18 04:43 Laboratory Results - last 24 hr 04/13/18 04/13/18 04/13/18 09:40 14:51 18:19 WBC RBC Hgb Hct MCV MCH MCHC RDW Plt Count MPV Prelim Diff (Auto) Neut % (Auto) Lymph % (Auto) [place] % (Auto) Eos % (Auto) Baso % (Auto) Neut # (Auto) Lymph # (Auto) [place] # (Auto) Eos # (Auto) Baso # (Auto) WBC Differential Seg Neuts % (Manual) Band Neuts % (Manual) Lymphocytes % (Manual) Monocytes % (Manual) Metamyelocytes % (Man) Abs Neuts (Manual) Nucleated RBCs/100 WBC Differential Comment Toxic Granulation Platelet Estimate Platelet Morphology Hematology Comments APTT 40.6 H D 49.2 H D Sodium Potassium Chloride Carbon Dioxide Anion Gap BUN Creatinine Estimated GFR POC Glucose 92 Random Glucose Calcium Phosphorus Magnesium Total Bilirubin AST ALT Alkaline Phosphatase Total Protein Albumin 04/13/18 04/14/18 04/14/18 20:51 00:39 04:35 WBC RBC Hgb Hct MCV MCH MCHC RDW Plt Count MPV Prelim Diff (Auto) Neut % (Auto) Lymph % (Auto) [place] % (Auto) Eos % (Auto) Baso % (Auto) Neut # (Auto) Lymph # (Auto) [place] # (Auto) Eos # (Auto) Baso # (Auto) WBC Differential Seg Neuts % (Manual) Band Neuts % (Manual) Lymphocytes % (Manual) Monocytes % (Manual) Metamyelocytes % (Man) Abs Neuts (Manual) Nucleated RBCs/100 WBC Differential Comment Toxic Granulation Platelet Estimate Platelet Morphology Hematology Comments APTT 41.6 H Sodium Potassium Chloride Carbon Dioxide Anion Gap BUN Creatinine Estimated GFR POC Glucose 91 94 Random Glucose Calcium Phosphorus Magnesium Total Bilirubin AST ALT Alkaline Phosphatase Total Protein Albumin 04/14/18 04/14/18 04/14/18 04:43 04:43 07:51 WBC 35.6 H RBC 3.65 L Hgb 10.6 L Hct 32.1 L MCV 87.8 MCH 29.1 MCHC 33.1 RDW 16.1 Plt Count 208 MPV 9.0 Prelim Diff (Auto) Slide review pending Neut % (Auto) 88.0 H Lymph % (Auto) 4.6 L [place] % (Auto) 5.5 Eos % (Auto) 0.8 Baso % (Auto) 1.1 Neut # (Auto) 31.4 H Lymph # (Auto) 1.6 [place] # (Auto) 1.9 H Eos # (Auto) 0.3 Baso # (Auto) 0.4 H WBC Differential Manual diff final Seg Neuts % (Manual) 82 H Band Neuts % (Manual) 3 Lymphocytes % (Manual) 5 L Monocytes % (Manual) 9 H Metamyelocytes % (Man) 1 Abs Neuts (Manual) 30.6 H Nucleated RBCs/100 WBC 2 H Differential Comment . Toxic Granulation 2+ H Platelet Estimate Normal Platelet Morphology Normal Hematology Comments APTT Sodium 148 H Potassium 3.5 Chloride 109 H Carbon Dioxide 27.7 Anion Gap 11 BUN 25 H Creatinine 1.05 H Estimated GFR 51 L POC Glucose 83 Random Glucose 78 Calcium 7.6 L Phosphorus 3.2 Magnesium 2.2 Total Bilirubin 0.5 AST 66 H ALT 65 H Alkaline Phosphatase 99 Total Protein 5.5 L Albumin 1.6 L - Imaging Imaging: ITS Impressions Abdomen/Bladder Ultrasound 04/08/18 00:00 CONCLUSION: Kidneys within normal limits. Right pleural effusion noted. Chest CT 04/08/18 10:09 CONCLUSION: 1. Large hiatal hernia containing a large portion of the stomach with moderate amount of free air in the hiatal hernia and in the upper abdomen. Distal gastric wall thickening and extraluminal fluid adjacent to the distal stomach. Most likely etiology for the findings is a perforated gastric ulcer. Free fluid is also seen in the upper abdomen. 2. New bilateral lower lobe atelectasis/consolidation and small bilateral pleural effusions. Chest Ultrasound 04/11/18 00:00 CONCLUSION: 1. Left pleural effusion and marked on the skin. Thoracentesis CT 04/11/18 00:00 CONCLUSION: 1. Uncomplicated CT-guided thoracentesis. Abdomen X-Ray 04/11/18 12:13 CONCLUSION: Nonspecific, nonobstructive bowel gas pattern which may represent a mild ileus or gastroenteritis. Chest X-Ray 04/11/18 16:34 CONCLUSION: Status post right thoracentesis. No evidence of pneumothorax. Abdomen/Pelvis CT 04/12/18 00:00 CONCLUSION: 1. The previously noted free air on the prior study has resolved. Patient is recently status post abdominal surgery. There are surgical drains in the upper abdomen. 2. There is a trace of fluid adjacent to the liver. There is a small amount of free fluid deep in the pelvis. 3. Multiple dilated loops of small bowel with fluid and air suggestive of a postsurgical ileus. 4. There continues to be a prominent hiatal hernia. 5. Small bilateral pleural effusions with atelectasis in both lung bases. Assessment and Plan - Plan POD 5 s/p lap wedge resection of stomach and partial reduction of large hiatal hernia for multiple perforated ulcers of greater curve. Methylene blue leak test is negative and will start enteral feeding today as well as water by mouth.
--- NOTE | 2018-04-14 10:33 | XR ---
EXAM DATE: 04/14/2018 10:29 AM EST AGE/SEX: 77 years / Female INDICATIONS: Short of breath. CLINICAL DATA: This is the patient's subsequent encounter. Patient reports that signs and symptoms h ave been present for 1 day and indicates a pain score of 0/10. MEDICAL/SURGICAL HISTORY: . Chronic obstructive pulmonary disease. Congestive heart failure. My ocardial infarction. None. COMPARISON: [facility] – [place], CHEST EXPIRATION ONLY, 04/11/2018. . FINDINGS: Decreased lung aeration is noted following extubation. Mild interstitial vascular prominence remains evident in the lungs. Mild opacity in the bases are characteristic of small effusions. Persistent air space disease is identified in the left base. Heart and mediastinal structures are stable. CONCLUSION: Persistent mild vascular congestion and left basilar airspace disease. Suspected small effusions. Otherwise stable chest status post extubation. Electronically signed by: Richmond Garcia MD 04/14/2018 10:32 AM EST
[2018-04-14] MEDS: Dextrose 5% in Water Inj 1,000 ML IV.CONT SCH (11:34)
--- NOTE | 2018-04-14 12:22 | P.PNCA ---
Subjective Interval history: No events overnight Doing well, SOB with sitting up and moving Medications and Allergies Active Medications: Active Medications Al Hydroxide/Mg Hydroxide (Milk Of Magnesia Liq) 30 ml PO DAILY [facility] Last Admin: 04/14/18 08:39 Dose: 30 ml Albuterol (Duoneb Neb (Prn)) 1 ampul NEB Q2HR NEB PRN PRN Reason: WHEEZING Last Admin: 04/12/18 04:58 Dose: 1 ampul Albuterol (Duoneb Neb (Jose)) 1 ampul NEB Q6HR NEB [facility] Last Admin: 04/14/18 10:40 Dose: 1 ampul Aspirin (Aspirin Chew) 81 mg PO DAILY [facility] Last Admin: 04/14/18 08:39 Dose: 81 mg Bisacodyl (Dulcolax Supp) 10 mg RECTAL PRN PRN PRN Reason: SEE LABEL COMMENTS Dextrose (D50w Vial) 50 ml IV.PUSH UNSCH PRN PRN Reason: PER HYPOGLYCEMIA PROTOCOL Last Admin: 04/12/18 05:40 Dose: 25 ml Docusate Sodium (Colace Liq) 100 mg PO BID [facility] Last Admin: 04/14/18 08:39 Dose: 100 mg Furosemide (Lasix Inj) 40 mg IV.PUSH DAILY [facility] Glucagon (Glucagon Inj) 1 mg OTHER UNSCH PRN PRN Reason: for Hypoglycemia Protocol Sodium Chloride (Ns Inj) 500 mls @ 30 mls/hr IV.SIG .Q10H [facility] Last Admin: 04/04/18 06:39 Dose: Not Given Acetaminophen (Ofirmev Inj) 1,000 mg in 100 mls @ 400 mls/hr IV.SIG Q6H PRN PRN Reason: PAIN SCALE 1-10 Last Infusion: 04/07/18 18:44 Dose: Infused Piperacillin/Tazobactam/Dextrose (Zosyn 3.375 Gm Premix) 50 mls @ 200 mls/hr IV.SIG Q6H [facility] Last Infusion: 04/14/18 09:39 Dose: Infused Fentanyl (Fentanyl 10 Mcg/Ml Premix Drip) 2,500 mcg in 250 mls @ 5 mls/hr IV.SIG TITRATE PRN; Protocol PRN Reason: Per Protocol Last Titration: 04/12/18 13:39 Dose: Infused Magnesium Sulfate 4 gm/ Sodium (Chloride) 100 mls @ 50 mls/hr IV.SIG UNSCH PRN PRN Reason: For Magnesium 0.9 - 1.1 mg/dL Potassium Chloride (Kcl 40 Meq Premix Inj) 40 meq in 100 mls @ 25 mls/hr IV.SIG Q2H PRN PRN Reason: For Potassium 2.8 - 3.2 mEq/L Potassium Chloride (Kcl 20 Meq Premix Inj) 20 meq in 100 mls @ 50 mls/hr IV.SIG Q2H PRN PRN Reason: For Potassium 3.3 - 3.5 mEq/L Last Infusion: 04/14/18 09:39 Dose: Infused Potassium Chloride (Kcl 40 Meq Premix Inj) 40 meq in 100 mls @ 25 mls/hr IV.SIG UNSCH PRN PRN Reason: For Potassium 3.3 - 3.5 mEq/L Potassium Chloride (Kcl 20 Meq Premix Inj) 20 meq in 100 mls @ 50 mls/hr IV.SIG Q2H PRN PRN Reason: For Potassium 2.8 - 3.2 mEq/L Last Infusion: 04/13/18 07:00 Dose: Infused Potassium Phosphate 30 mmol/ (Sodium Chloride) 260 mls @ 42 mls/hr IV.SIG UNSCH PRN PRN Reason: SEE LABEL COMMENTS Magnesium Sulfate 2 gm/ Sodium (Chloride) 100 mls @ 50 mls/hr IV.SIG UNSCH PRN PRN Reason: For Magnesium 1.2 - 1.6 mg/dL Sodium Phosphate 30 mmol/ (Sodium Chloride) 260 mls @ 42 mls/hr IV.SIG UNSCH PRN PRN Reason: For Phosphorus < 2.5 mg/dL Heparin Sodium/Dextrose (Heparin/D5w 25,000 U/250 Ml) 25,000 unit in 250 mls @ 17 mls/hr IV.CONT TITRATE PRN; Protocol PRN Reason: Per Protocol Last Titration: 04/13/18 03:00 Dose: 900 units/hr, 9 mls/hr Dextrose (D5w Inj) 1,000 mls @ 42 mls/hr IV.CONT .[id number] [facility] Last Admin: 04/14/18 11:34 Dose: 42 mls/hr Micafungin Sodium 150 mg/ (Sodium Chloride) 100 mls @ 100 mls/hr IV.SIG Q24H [facility] Last Infusion: 04/13/18 17:35 Dose: Infused Insulin Aspart (Novolog Insulin Correctional Sugar Inj) 0 unit SQ Q4HR [facility]; Protocol Last Admin: 04/14/18 11:38 Dose: Not Given Levothyroxine Sodium (Synthroid) 100 mcg PO DAILY@0600 [facility] Last Admin: 04/14/18 06:29 Dose: 100 mcg Magnesium Oxide (Mag-Ox) 800 mg PO UNSCH PRN PRN Reason: For Magnesium 1.2 - 1.6 mg/dL Miscellaneous (Pill Splitter) 1 each OTHER UNSCH PRN PRN Reason: SEE LABEL COMMENTS Multivitamins/Minerals (Theragran-M) 1 tab PO DAILY [facility] Last Admin: 04/14/18 08:39 Dose: 1 tab Ondansetron HCl (Zofran Inj) 4 mg IV.PUSH Q6H PRN PRN Reason: NAUSEA OR VOMITING Last Admin: 04/08/18 09:29 Dose: 4 mg Pantoprazole Sodium (Protonix Inj) 40 mg IV.PUSH Q12H [facility] Last Admin: 04/14/18 11:35 Dose: 40 mg Paroxetine HCl (Paxil) 10 mg PO DAILY [facility] Last Admin: 04/14/18 08:40 Dose: 10 mg Patient's Own: ( Rosuvastatin [ Rosuvastatin] 20 Mg) 0 each PO DAILY [facility] Polyethylene Glycol (Miralax) 17 gm PO DAILY [facility] Last Admin: 04/14/18 08:40 Dose: Not Given Potassium Bicarb/Potassium Chloride (K-Lyte Cl Eff) 50 meq PO UNSCH PRN PRN Reason: For Potassium 3.3 - 3.5 mEq/L Potassium Phosphate (K-Phos Original) 2,000 mg PO Q4H PRN PRN Reason: Phosphorus Less Than 2.5 mg/dL Potassium Phosphate (K-Phos Original) 2,000 mg PO UNSCH PRN PRN Reason: SEE LABEL COMMENTS Sennosides (Senokot) 8.6 mg PO HS [facility] Last Admin: 04/13/18 21:36 Dose: 8.6 mg Sodium Biphosphate/Sodium Phosphate (Fleets Enema (Adult)) 118 ml RECTAL UNSCH PRN PRN Reason: SEE LABEL COMMENTS Sodium Chloride (Ns Flush) 2 ml IV.FLUSH BID [facility] Last Admin: 04/14/18 08:36 Dose: 2 ml Sodium Chloride (Ns Flush) 2 ml IV.FLUSH PRN PRN PRN Reason: FLUSH AFTER USING IV ACCESS Sterile Water (Free Water) 250 ml G-TUBE Q6HR [facility] Last Admin: 04/14/18 11:36 Dose: Not Given Terbutaline Sulfate (Brethine Inj) 1 mg SQ UNSCH PRN PRN Reason: For Extravasation Verapamil HCl (Isoptin) 40 mg PO TID [facility] Last Admin: 04/14/18 08:40 Dose: 40 mg Allergies Allergy/AdvReac Type Severity Reaction Status Date / Time atorvastatin AdvReac Hypotension Verified 04/04/18 06:21 simvastatin AdvReac Hypotension Verified 04/04/18 06:21 Home Medications Medication Instructions Recorded Confirmed Type ciprofloxacin HCl [Cipro] 500 mg PO Q12H 02/16/18 04/04/18 History coenzyme Q10 [Co Q-10] 10 mg PO TID 02/16/18 04/04/18 History furosemide 40 mg PO BID 02/16/18 04/04/18 History losartan 50 mg PO DAILY 02/16/18 04/04/18 History pantoprazole 40 mg PO DAILY 02/16/18 04/04/18 History paroxetine HCl 10 mg PO DAILY 02/16/18 04/04/18 History potassium chloride [K-Tab] 10 meq PO DAILY 02/16/18 04/04/18 History ranitidine HCl 150 mg PO BID 02/16/18 04/04/18 History rosuvastatin 20 mg PO DAILY 02/16/18 04/04/18 History verapamil 180 mg PO DAILY 02/16/18 04/04/18 History warfarin 5 mg PO DAILY 02/16/18 04/04/18 History aspirin 81 mg PO DAILY 03/09/18 04/04/18 History nitroglycerin 0.4 mg SUBLINGUAL Q5-15M PRN 03/09/18 04/04/18 History Physical Exam Vital signs: Vital Signs 04/13/18 15:00 04/13/18 15:37 04/13/18 16:32 Temperature Pulse Rate 93 H 101 H Respiratory Rate 20 18 Blood Pressure 139/72 Pulse Oximetry 97 99 04/13/18 20:00 04/13/18 20:53 04/14/18 00:00 Temperature 98.1 F 98.7 F Pulse Rate 84 91 H 104 H Respiratory Rate 18 18 18 Blood Pressure 165/78 H 154/72 H Pulse Oximetry 97 96 96 04/14/18 04:00 04/14/18 04:16 04/14/18 07:00 Temperature 98.2 F 98.7 F Pulse Rate 100 H 90 113 H Respiratory Rate 20 18 20 Blood Pressure 156/75 H 144/76 H Pulse Oximetry 98 97 04/14/18 07:56 04/14/18 10:40 Temperature Pulse Rate 99 H Respiratory Rate 20 Blood Pressure Pulse Oximetry 97 96 Intake & Output 04/13/18 04/14/18 04/14/18 18:59 06:59 18:59 Intake Total 1775 / 1775 600 / 600 1280 / 1280 Output Total 870 / 870 1170 / 1170 Balance 905 / 905 -570 / -570 1280 / 1280 Weight 94 kg Intake: IV 1425 / 1425 100 / 100 1280 / 1280 Precedex Inj 200 MCG In NS Inj 30 / 30 48 ML @ 0.2 MCG/KG/HR 4.75 mls/ hr IV.CONT TITRATE PRN Rx#: [id number] D5W Inj 1,000 ML @ 42 mls/hr IV 1000 / 1000 1000 / 1000 .CONT .[id number] JOSE Rx#:[id number] Mycamine Inj 150 MG In NS Inj 100 / 100 100 ML @ 100 mls/hr IV.SIG Q24H JOSE Rx#:[id number] Zosyn 3.375 GM Premix 50 ML @ 100 / 100 100 / 100 50 / 50 200 mls/hr IV.SIG Q6H JOSE Rx#: [id number] KCl 20 mEq Premix Inj 20 meq In 225 / 225 200 / 200 100 ml @ 50 mls/hr IV.SIG Q2H PRN Rx#:[id number] Oral 0 / 0 Tube Irrigant 350 / 350 Water Bolus Amount 500 / 500 Output: Urine Amount (Catheter) 650 / 650 1100 / 1100 Indwelling Urethral Catheter 650 / 650 1100 / 1100 Gastric Drainage 200 / 200 50 / 50 Right Nare Nasogastric Tube 200 / 200 50 / 50 Wound Drainage 20 / 20 20 / 20 # 1 Right Anterior Abdomen 15 / 15 20 / 20 # 2 Left Anterior Abdomen 5 / 5 0 / 0 Other: # Bowel Movements 1 Narrative: GENERAL: NAD, AAO SKIN: Warm and dry. HEAD: Atraumatic. Normocephalic. EYES: Pupils equal and round. No scleral icterus. No injection or drainage. ENT: No nasal bleeding or discharge. Mucous membranes pink and moist. NECK: Trachea midline. No JVD. CARDIOVASCULAR: Irregularly irregular RESPIRATORY: No accessory muscle use. Decreased breath sounds GASTROINTESTINAL: Abdomen soft, non-tender, nondistended. Hepatic and splenic margins not palpable. MUSCULOSKELETAL: Extremities without clubbing. Toes now warm with better color NEUROLOGICAL: Awake and alert. No obvious cranial nerve deficits. Motor grossly within normal limits. Five out of 5 muscle strength in the arms and legs. Normal speech. PSYCHIATRIC: Appropriate mood and affect; insight and judgment normal. - Urinary Catheter Management Indwelling Temp Sensing Catheter Cath placed during this visit: yes Urethral indwelling: No Reason for continuing: Hourly intake/output Insertion date: 04/04/18 Insertion time: 07:52 Indwelling Urethral Catheter Cath placed during this visit: yes Reason for continuing: Hourly intake/output Insertion date: 04/08/18 Insertion time: 16:51 Results 04/14/18 04:43 04/14/18 04:43 Cardiac Enzymes 04/13/18 04/14/18 Range/Units 01:58 04:43 AST 89 H 66 H (15-37) U/L Coagulation 04/12/18 04/13/18 04/13/18 Range/Units 18:11 01:58 09:40 APTT 80.0 H 89.5 H 40.6 H D (23.4-31.7) sec 04/13/18 04/14/18 Range/Units 18:19 04:35 APTT 49.2 H D 41.6 H (23.4-31.7) sec CBC 04/13/18 04/14/18 Range/Units 01:58 04:43 WBC 30.2 H 35.6 H (4.0-11.0) th/mm3 RBC 3.46 L 3.65 L (4.00-5.30) mil/mm3 Hgb 10.1 L 10.6 L (11.6-15.3) gm/dL Hct 30.4 L 32.1 L (35.0-46.0) % Plt Count 210 208 (150-450) th/mm3 Neut # (Auto) 27.0 H 31.4 H (1.8-7.7) th/mm3 Lymph # (Auto) 1.1 1.6 (1.0-4.8) th/mm3 [place] # (Auto) 1.6 H 1.9 H (0.0-0.9) th/mm3 Eos # (Auto) 0.2 0.3 (0.0-0.4) th/mm3 Baso # (Auto) 0.3 H 0.4 H (0.0-0.2) th/mm3 Comprehensive Metabolic Panel 04/13/18 04/14/18 Range/Units 01:58 04:43 Sodium 148 H 148 H (136-145) meq/L Potassium 3.2 L D 3.5 (3.5-5.1) meq/L Chloride 112 H 109 H (98-107) meq/L Carbon Dioxide 25.7 27.7 (21.0-32.0) meq/L BUN 31 H 25 H (7-18) mg/dL Creatinine 1.11 H 1.05 H (0.50-1.00) mg/dL Calcium 7.6 L 7.6 L (8.5-10.1) mg/dL AST 89 H 66 H (15-37) U/L ALT 90 H 65 H (10-53) U/L Alkaline Phosphatase 96 99 (45-117) U/L Total Protein 5.1 L 5.5 L (6.4-8.2) g/dL Albumin 1.5 L 1.6 L (3.4-5.0) g/dL Intake and Output 04/13/18 04/14/18 04/14/18 22:59 06:59 14:59 Intake Total 1700 / 1700 550 / 550 1280 / 1280 Output Total 870 / 870 1170 / 1170 Balance 830 / 830 -620 / -620 1280 / 1280 Intake: IV 1350 / 1350 50 / 50 1280 / 1280 Precedex Inj 200 MCG In NS Inj 30 / 30 48 ML @ 0.2 MCG/KG/HR 4.75 mls/ hr IV.CONT TITRATE PRN Rx#: [id number] D5W Inj 1,000 ML @ 42 mls/hr IV 1000 / 1000 1000 / 1000 .CONT .[id number] JOSE Rx#:[id number] Mycamine Inj 150 MG In NS Inj 100 / 100 100 ML @ 100 mls/hr IV.SIG Q24H JOSE Rx#:[id number] Zosyn 3.375 GM Premix 50 ML @ 150 / 150 50 / 50 50 / 50 200 mls/hr IV.SIG Q6H JOSE Rx#: [id number] KCl 20 mEq Premix Inj 20 meq In 100 / 100 200 / 200 100 ml @ 50 mls/hr IV.SIG Q2H PRN Rx#:[id number] Oral 0 / 0 Tube Irrigant 350 / 350 Water Bolus Amount 500 / 500 Output: Urine Amount (Catheter) 650 / 650 1100 / 1100 Indwelling Urethral Catheter 650 / 650 1100 / 1100 Gastric Drainage 200 / 200 50 / 50 Right Nare Nasogastric Tube 200 / 200 50 / 50 Wound Drainage 20 / 20 20 / 20 # 1 Right Anterior Abdomen 15 / 15 20 / 20 # 2 Left Anterior Abdomen 5 / 5 0 / 0 Other: # Bowel Movements 1 Weight 94 kg - Imaging and Cardiology Imaging: Impressions Abdomen/Pelvis CT 04/12/18 00:00 CONCLUSION: 1. The previously noted free air on the prior study has resolved. Patient is recently status post abdominal surgery. There are surgical drains in the upper abdomen. 2. There is a trace of fluid adjacent to the liver. There is a small amount of free fluid deep in the pelvis. 3. Multiple dilated loops of small bowel with fluid and air suggestive of a postsurgical ileus. 4. There continues to be a prominent hiatal hernia. 5. Small bilateral pleural effusions with atelectasis in both lung bases. Chest X-Ray 04/14/18 09:40 CONCLUSION: Persistent mild vascular congestion and left basilar airspace disease. Suspected small effusions. Otherwise stable chest status post extubation. Assessment and Plan - Assessment (1) Severe aortic stenosis Code(s): I35.0 - Nonrheumatic aortic (valve) stenosis Status: Chronic (2) Coronary artery disease involving [place] coronary artery Code(s): I25.10 - Atherosclerotic heart disease of [place] coronary artery without angina pectoris Status: Acute (3) Congestive heart failure (CHF) Code(s): I50.9 - Heart failure, unspecified Status: Chronic (4) Atrial fibrillation Code(s): I48.91 - Unspecified atrial fibrillation Status: Chronic (5) S/P CABG (coronary artery bypass graft) Code(s): Z95.1 - Presence of aortocoronary bypass graft Status: Acute - Plan 1) CAD s/p CABGx2 2) Residual Possible TAVR in the future Not a BAV candidate at this time with at least moderate AR 3) AFib Cardioverted before abdominal surgery Back in AFib Heart rates stable after digoxin load Now on Verapamil controlling rates Start on heparin drip, will have to restart Coumadin at some point Will have to see how she does hemodynamically going further, might need to cardiovert again, stable for now 4) Gastric ulcer/perfs Per surgery 5) If concerns over the weekend, please call the service for covering physician
--- NOTE | 2018-04-14 13:12 | P.PNCV ---
- Note Subjective/Hospital Course: 77/ female initially seen on 03/13/18 in [facility] office with Dr Warner, hx of progressive SOB over past few months . Known hx of CAD previous PCI's , ECHO revealed severe . Cardiac cath revealed multivessel disease PMH: Afib, Aortic stenosis, Asthma, CAD (coronary artery disease), CHF ( congestive heart failure), HLD (hyperlipidemia), HTN (hypertension) Hiatal hernia, Hypothyroid, LBBB (left bundle branch block), Mitral regurgitation, Myocardial infarct, Sleep apnea, TIA (transient ischemic attack) UTI (urinary tract infection) 04/04 pt electively admitted for surgery PREPROCEDURE DIAGNOSES 1. Severe Multi Vessel Coronary Artery Disease. 2. Severe aortic stenosis 3. Atrial fibrillation status post ablation POSTPROCEDURE DIAGNOSES 1. Severe Multi Vessel Coronary Artery Disease. 2. Severe aortic stenosis 3. Atrial fibrillation status post ablation 4. Heavily calcified ascending aorta SURGICAL PROCEDURE 1. Clampless off-pump Coronary Artery Bypass Grafting x 2 with Left Internal Mammary Artery (ZAPATA) to Left Anterior Descending (LAD), reverse saphenous vein graft to obtuse Marginal branch of the left Circumflex artery 2. Left leg Endoscopic Vein [place] 3. Left atrial appendage excision pt extubated after surgery crystalloid 2300cc, 1500cc EBL, 750cc cell saver 04/05 pt up in chair ECG with some mild global st elevation / pericarditis + rub, no pressors , stable for transfer, resume BB will need to resume coumadin when chest tubes out 04/06 chest tube dc without difficultly pt went into afib RVR last night and this am received 2nd bolus of amiodarone / po amiodarone increased will resume coumadin / this pm goal 2.5 / followed by Dr Menendez at home 04/07 pt was transferred back to CVICU yesterday became bradycardic / hypotensive / despite IV fluids calcium chloride / required Dopamine gtt / remains in afib rate now 90's , BP improved discussed with Dr Warner/ will consult cardiology regarding cardiac meds start lovenox and coumadin/ dc when INR > 2.0 dc fem line / consult PT / observe in CVICU today 04/08 Remains in atrial fibrillation with rapid ventricular response heart rate in the 120s Overnight events noted she received diltiazem, digoxin and Lopressor for heart rate with resultant hypotension requiring Dayday-Synephrine which is presently being weaned. Remains somewhat labile with her blood pressure Had echo this morning. Awaiting results Renal function worsening. Will consult nephrology. Likely secondary to hypoperfusion If ventricular function is okay, will give gentle hydration - Preoperative Diagnosis (1) Pneumoperitoneum (2) Paraesophageal hernia - Postoperative Diagnosis (1) Pneumoperitoneum (2) Paraesophageal hernia (3) Gastric ulcer, acute with perforation Date of procedure: 04/08/18 Procedure: Diagnostic laparoscopy Laparoscopic partial reduction of paraesophageal hernia Laparoscopic wedge resection of greater curvature of stomach 04/09 Operative findings noted Remains intubated and mechanically ventilated On Levophed for hemodynamic support. Weaning as tolerated Greatly appreciate Dr. Craig's input and assistance Renal function improving. Appreciate Dr. Holliday's input 04/10 remains sedated on vent 40% Fi02 SVV 17, CO 5.2/2.7 on Levo gtt at 2 mcq, in afib rate 110 creatinine improving left OANH drain 30cc/ 12 hrs, right OANH drain 10cc/ 12hr some drainage from prior chest tubes sites/ will dc prevena dressing 04/11 pt off all pressors , remains on 40% fi02 only on low dose fentanly for pain , awake follows commands, moves all extremities NA improving , creatinine improving, + hypoactive bowel sounds DC CVC line today, ok for Lovenox or Heparin SQ consult PT ROM 04/12 s/p right thoracentesis yesterday, removed 550cc bloody fluid remains on vent 40% awake , following commands, worsening leukocytosis cultures pending / ID following on Heparin gtt, rate improved 04/13 Clinically and hemodynamically stable. In atrial fibrillation with rate control. On heparin drip WBC continues to rise. Appreciate ID input and involvement Incentive spirometry and physical therapy as tolerated 04/14 Doing better. Hemodynamically stable Persistent leukocytosis. On antibiotics per ID Planned initiation of p.o. intake by general surgery Objective: Vital Signs - 24 hr 04/13/18 15:00 04/13/18 15:37 04/13/18 16:32 Temperature Pulse Rate 93 H 101 H Respiratory Rate 20 18 Blood Pressure 139/72 Pulse Oximetry 97 99 04/13/18 20:00 04/13/18 20:53 04/14/18 00:00 Temperature 98.1 F 98.7 F Pulse Rate 84 91 H 104 H Respiratory Rate 18 18 Blood Pressure 165/78 H 154/72 H Pulse Oximetry 97 96 96 04/14/18 04:00 04/14/18 04:16 04/14/18 07:00 Temperature 98.2 F 98.7 F Pulse Rate 100 H 90 113 H Respiratory Rate 20 18 20 Blood Pressure 156/75 H 144/76 H Pulse Oximetry 98 97 04/14/18 07:56 04/14/18 10:40 04/14/18 11:00 Temperature 98.3 F Pulse Rate 99 H 111 H Respiratory Rate 20 20 Blood Pressure 139/72 Pulse Oximetry 97 96 98 Labs: Laboratory Results - last 12 hr 04/14/18 04/14/18 04/14/18 04:35 04:43 04:43 WBC 35.6 H RBC 3.65 L Hgb 10.6 L Hct 32.1 L MCV 87.8 MCH 29.1 MCHC 33.1 RDW 16.1 Plt Count 208 MPV 9.0 Prelim Diff (Auto) Slide review pending Neut % (Auto) 88.0 H Lymph % (Auto) 4.6 L [place] % (Auto) 5.5 Eos % (Auto) 0.8 Baso % (Auto) 1.1 Neut # (Auto) 31.4 H Lymph # (Auto) 1.6 [place] # (Auto) 1.9 H Eos # (Auto) 0.3 Baso # (Auto) 0.4 H WBC Differential Manual diff final Seg Neuts % (Manual) 82 H Band Neuts % (Manual) 3 Lymphocytes % (Manual) 5 L Monocytes % (Manual) 9 H Metamyelocytes % (Man) 1 Abs Neuts (Manual) 30.6 H Nucleated RBCs/100 WBC 2 H Differential Comment . Toxic Granulation 2+ H Platelet Estimate Normal Platelet Morphology Normal Hematology Comments APTT 41.6 H Sodium 148 H Potassium 3.5 Chloride 109 H Carbon Dioxide 27.7 Anion Gap 11 BUN 25 H Creatinine 1.05 H Estimated GFR 51 L POC Glucose Random Glucose 78 Calcium 7.6 L Phosphorus 3.2 Magnesium 2.2 Total Bilirubin 0.5 AST 66 H ALT 65 H Alkaline Phosphatase 99 Total Protein 5.5 L Albumin 1.6 L 04/14/18 07:51 WBC RBC Hgb Hct MCV MCH MCHC RDW Plt Count MPV Prelim Diff (Auto) Neut % (Auto) Lymph % (Auto) [place] % (Auto) Eos % (Auto) Baso % (Auto) Neut # (Auto) Lymph # (Auto) [place] # (Auto) Eos # (Auto) Baso # (Auto) WBC Differential Seg Neuts % (Manual) Band Neuts % (Manual) Lymphocytes % (Manual) Monocytes % (Manual) Metamyelocytes % (Man) Abs Neuts (Manual) Nucleated RBCs/100 WBC Differential Comment Toxic Granulation Platelet Estimate Platelet Morphology Hematology Comments APTT Sodium Potassium Chloride Carbon Dioxide Anion Gap BUN Creatinine Estimated GFR POC Glucose 83 Random Glucose Calcium Phosphorus Magnesium Total Bilirubin AST ALT Alkaline Phosphatase Total Protein Albumin Result Diagrams: 04/14/18 04:43 04/14/18 04:43 - Plan (1) Severe aortic stenosis Plan: will need planned TAVR after discharge (2) Coronary artery disease involving [place] coronary artery Plan: ASA, consider low dose BB was on verapamil at home (3) Congestive heart failure (CHF) Plan: gentle diuresis (4) Atrial fibrillation Plan: s/p atrial appendage excision resume Coumadin / when cleared by general surgery (5) COPD (chronic obstructive pulmonary disease) Plan: nebs ezpap and acapella (6) S/P CABG (coronary artery bypass graft) Plan: ASA, resume home med crestor pulm toileting , nebs ezpap, acapella OOB ambulate eval for rehab at discharge (7) S/P exploratory laparotomy Plan: general surgery following (10) Respiratory failure requiring intubation Plan: vent weaning as per CCM (11) Leukocytosis Plan: hernandes -culture ABX per ID DC CVC line (12) Acute renal failure Plan: nephro following
[2018-04-14] MEDS: Micafungin Inj 150 MG in Sodium Chlor 0.9% Inj 100 ML IV.SIG SCH (14:34)
--- NOTE | 2018-04-14 15:14 | P.DIET ---
Nutritional Evaluation Type of nutrition evaluation: follow-up Nutrition consult regarding: Tube Feeding Nutrition screening: [facility] [place] Screening comments: 04/12 NPO Alert. Pt has been npo x 3 days s/p lap partial reduction of paraesophageal hernia and wedge resection of greater curvature of the stomach. Consult RD if needed. Objective - Diagnosis CABG x 2 - Objective Body Mass Index: 34.5 % IBW: 159 (IBW 130lb) Body Weight Used for Calculations: Actual Energy Needs - Lower Range (kCal/kg): 25 Energy Needs - Upper Range (kCal/kg): 30 Lower Limit kCal/kg (kCals): 1,477 Upper Limit kCal/kg (kCals): 1,773 Lower Limit Protein Factor (Grams per Kg): 1.1 Upper Limit Protein Factor (Grams per Kg): 1.3 Lower Protein Needs (Protein): 65 Upper Protein Needs (Protein): 77 Dietitian Reviewed in Medical Record: Current diet, Intake & Output, Labs, Medical history Diet Order: NPO TF Objective Comments: 04/04/18 CABG x 2 PMH: AFIB, aortic stenosis, CAD, CHF, HLD, HTN, hypothyroid, mitral regurgitation, OR, TIA, UTI Meds: synthroid Labs: BUN 25, Cr 1.05, GFR 51, Ca+ 7.6 Assessment Assessment: Pt currently receiving Jevity 1.5 @ 10mL/hr. RD to recommend Jevity 1.5 w/ goal rate @ 50mL/hr x 22 hours to provide 1650 kcal, 70g of protein, 836mL of free water to meet pts nutritional needs. Pt is on Synthroid so TF needs to be held for 1 hour before and 1 hour after Synthroid is given. Will monitor for TF tolerance. Additional recs to follow r/t medical course. Labs reviewed, dietitian following. Recommendations: 1. RD to recommend Jevity 1.5 w/ goal rate @ 50mL/hr x 22 hours to meet pts nutritional needs 2. Pt is on Synthroid so TF needs to be held for 1 hour before and 1 hour after Synthroid is given 3. Will monitor for TF tolerance 4. Additional recs to follow r/t medical course Dietitian to Monitor: Lab values, Intake & Output, Tube feeding tolerance, Weight change, Medical course
[2018-04-14] MEDS: Heparin Drip 25,000 UNIT/250 ML BAG IV.CONT PRN (17:18)
--- NOTE | 2018-04-14 17:19 | P.PNID ---
Subjective Remarks: WBC went to 35K denies abd pain had large unformed BM seen byophthalmollogist : no fungal endophthalmitis seen on exam. on NC O2 off pressors BC growing C. glabrata No central lines Methylene blue leak test is negative on 04/14 micafungin added Antibiotics: micafungin fluconazol zosyn Allergies/Adverse Reactions: Allergies atorvastatin Adverse Reaction (Verified 04/04/18 06:21) Hypotension simvastatin Adverse Reaction (Verified 04/04/18 06:21) Hypotension Objective Vital Signs 04/13/18 20:00 04/13/18 20:53 04/14/18 00:00 Temperature 98.1 F 98.7 F Pulse Rate 84 91 H 104 H Respiratory Rate 18 18 18 Blood Pressure 165/78 H 154/72 H Pulse Oximetry 97 96 96 04/14/18 04:00 04/14/18 04:16 04/14/18 07:00 Temperature 98.2 F 98.7 F Pulse Rate 100 H 90 113 H Respiratory Rate 20 18 20 Blood Pressure 156/75 H 144/76 H Pulse Oximetry 98 97 04/14/18 07:56 04/14/18 10:40 04/14/18 11:00 Temperature 98.3 F Pulse Rate 99 H 111 H Respiratory Rate 20 20 Blood Pressure 139/72 Pulse Oximetry 97 96 98 04/14/18 14:00 04/14/18 15:00 04/14/18 15:37 Temperature 97.9 F Pulse Rate 101 H 86 Respiratory Rate 20 20 Blood Pressure 124/57 L Pulse Oximetry 96 97 04/14/18 17:08 Temperature Pulse Rate Respiratory Rate Blood Pressure Pulse Oximetry 96 Intake & Output 04/13/18 04/14/18 04/14/18 18:59 06:59 18:59 Intake Total 1775 / 1775 600 / 600 1830 / 1830 Output Total 870 / 870 1170 / 1170 850 / 850 Balance 905 / 905 -570 / -570 980 / 980 Weight 94 kg Intake: IV 1425 / 1425 100 / 100 1430 / 1430 Precedex Inj 200 MCG In NS Inj 30 / 30 48 ML @ 0.2 MCG/KG/HR 4.75 mls/ hr IV.CONT TITRATE PRN Rx#: [id number] D5W Inj 1,000 ML @ 42 mls/hr IV 1000 / 1000 1000 / 1000 .CONT .[id number] [facility] Rx#:[id number] Mycamine Inj 150 MG In NS Inj 100 / 100 100 / 100 100 ML @ 100 mls/hr IV.SIG Q24H [facility] Rx#:[id number] Zosyn 3.375 GM Premix 50 ML @ 100 / 100 100 / 100 100 / 100 200 mls/hr IV.SIG Q6H [facility] Rx#: [id number] KCl 20 mEq Premix Inj 20 meq In 225 / 225 200 / 200 100 ml @ 50 mls/hr IV.SIG Q2H PRN Rx#:[id number] Oral 0 / 0 200 / 200 Tube Feeding 100 / 100 Tube Irrigant 350 / 350 100 / 100 Water Bolus Amount 500 / 500 Output: Urine Amount (Catheter) 650 / 650 1100 / 1100 850 / 850 Indwelling Urethral Catheter 650 / 650 1100 / 1100 850 / 850 Gastric Drainage 200 / 200 50 / 50 Right Nare Nasogastric Tube 200 / 200 50 / 50 Wound Drainage 20 / 20 20 / 20 # 1 Right Anterior Abdomen 15 / 15 20 / 20 # 2 Left Anterior Abdomen 5 / 5 0 / 0 Other: Date of Last Bowel Movement 04/14/18 # Bowel Movements 1 04/12/18 05:11 Blood - Peripheral Aerobic Blood Culture - Preliminary No growth in 2 days 04/12/18 05:11 Blood - Peripheral Anaerobic Blood Culture - Preliminary No growth in 2 days 04/12/18 05:25 Blood - Peripheral Aerobic Blood Culture - Preliminary No growth in 2 days 04/12/18 05:25 Blood - Peripheral Anaerobic Blood Culture - Preliminary No growth in 2 days 04/11/18 16:10 Fluid - Pleural fluid Gram Stain - Final 04/11/18 16:10 Fluid - Pleural fluid Body Fluid Culture - Final No growth in 72 hours (aerobically and anaerobically ) 04/08/18 14:40 Blood - Peripheral Aerobic Blood Culture - Final [place] 04/08/18 14:40 Blood - Peripheral Anaerobic Blood Culture - Final No growth in 5 days 04/11/18 16:57 Sputum - Endotracheal Gram Stain - Final 04/11/18 16:57 Sputum - Endotracheal Sputum Culture - Final Moderate growth normal respiratory [place] 04/08/18 14:33 Blood - Peripheral Aerobic Blood Culture - Final No growth in 5 days 04/08/18 14:33 Blood - Peripheral Anaerobic Blood Culture - Final No growth in 5 days Lab - Hematology Results 04/13/18 04/14/18 01:58 04:43 WBC 30.2 H 35.6 H RBC 3.46 L 3.65 L Hgb 10.1 L 10.6 L Hct 30.4 L 32.1 L MCV 87.8 87.8 MCH 29.1 29.1 MCHC 33.1 33.1 RDW 15.8 16.1 Plt Count 210 208 MPV 8.3 9.0 Prelim Diff (Auto) Slide review pending Slide review pending Neut % (Auto) 89.3 H 88.0 H Lymph % (Auto) 3.8 L 4.6 L [place] % (Auto) 5.4 5.5 Eos % (Auto) 0.5 0.8 Baso % (Auto) 1.0 1.1 Neut # (Auto) 27.0 H 31.4 H Lymph # (Auto) 1.1 1.6 [place] # (Auto) 1.6 H 1.9 H Eos # (Auto) 0.2 0.3 Baso # (Auto) 0.3 H 0.4 H WBC Differential Manual diff final Manual diff final Seg Neuts % (Manual) 86 H 82 H Band Neuts % (Manual) 4 3 Lymphocytes % (Manual) 1 L 5 L Monocytes % (Manual) 6 9 H Eosinophils % (Manual) 1 Metamyelocytes % (Man) 1 1 Promyelocytes % (Man) 1 H Abs Neuts (Manual) 27.8 H 30.6 H Nucleated RBCs/100 WBC 2 H Differential Comment . . Toxic Granulation 1+ H 2+ H Platelet Estimate Normal Normal Platelet Morphology Normal Normal Acanthocytes (Spur) Occ H Keratocytes Occ H Hematology Comments Lab - Chemistry Results 04/12/18 04/13/18 04/13/18 21:33 00:31 01:58 Sodium 148 H Potassium 3.2 L D Chloride 112 H Carbon Dioxide 25.7 Anion Gap 10 BUN 31 H Creatinine 1.11 H Estimated GFR 48 L POC Glucose 88 98 Random Glucose 83 Calcium 7.6 L Phosphorus 3.8 Magnesium 2.4 Total Bilirubin 0.5 AST 89 H ALT 90 H Alkaline Phosphatase 96 Total Protein 5.1 L Albumin 1.5 L 04/13/18 04/13/18 04/13/18 07:28 14:51 20:51 Sodium Potassium Chloride Carbon Dioxide Anion Gap BUN Creatinine Estimated GFR POC Glucose 91 92 91 Random Glucose Calcium Phosphorus Magnesium Total Bilirubin AST ALT Alkaline Phosphatase Total Protein Albumin 04/14/18 04/14/18 04/14/18 00:39 04:43 07:51 Sodium 148 H Potassium 3.5 Chloride 109 H Carbon Dioxide 27.7 Anion Gap 11 BUN 25 H Creatinine 1.05 H Estimated GFR 51 L POC Glucose 94 83 Random Glucose 78 Calcium 7.6 L Phosphorus 3.2 Magnesium 2.2 Total Bilirubin 0.5 AST 66 H ALT 65 H Alkaline Phosphatase 99 Total Protein 5.5 L Albumin 1.6 L 04/14/18 04/14/18 13:13 16:53 Sodium Potassium Chloride Carbon Dioxide Anion Gap BUN Creatinine Estimated GFR POC Glucose 92 93 Random Glucose Calcium Phosphorus Magnesium Total Bilirubin AST ALT Alkaline Phosphatase Total Protein Albumin Imaging: ITS Impressions Abdomen/Bladder Ultrasound 04/08/18 00:00 CONCLUSION: Kidneys within normal limits. Right pleural effusion noted. Chest CT 04/08/18 10:09 CONCLUSION: 1. Large hiatal hernia containing a large portion of the stomach with moderate amount of free air in the hiatal hernia and in the upper abdomen. Distal gastric wall thickening and extraluminal fluid adjacent to the distal stomach. Most likely etiology for the findings is a perforated gastric ulcer. Free fluid is also seen in the upper abdomen. 2. New bilateral lower lobe atelectasis/consolidation and small bilateral pleural effusions. Chest Ultrasound 04/11/18 00:00 CONCLUSION: 1. Left pleural effusion and marked on the skin. Thoracentesis CT 04/11/18 00:00 CONCLUSION: 1. Uncomplicated CT-guided thoracentesis. Abdomen X-Ray 04/11/18 12:13 CONCLUSION: Nonspecific, nonobstructive bowel gas pattern which may represent a mild ileus or gastroenteritis. Abdomen/Pelvis CT 04/12/18 00:00 CONCLUSION: 1. The previously noted free air on the prior study has resolved. Patient is recently status post abdominal surgery. There are surgical drains in the upper abdomen. 2. There is a trace of fluid adjacent to the liver. There is a small amount of free fluid deep in the pelvis. 3. Multiple dilated loops of small bowel with fluid and air suggestive of a postsurgical ileus. 4. There continues to be a prominent hiatal hernia. 5. Small bilateral pleural effusions with atelectasis in both lung bases. Chest X-Ray 11/09/18 09:40 CONCLUSION: Persistent mild vascular congestion and left basilar airspace disease. Suspected small effusions. Otherwise stable chest status post extubation. Physical Exam: GENERAL: NAD SKIN: Warm and dry. no rash HEAD: Atraumatic. Normocephalic. EYES: Pupils equal and round. No scleral icterus. No injection or drainage. ENT: No nasal bleeding or discharge. Mucous membranes pink and moist. NECK: Trachea midline. No JVD. CARDIOVASCULAR: Regular rate and rhythm. RESPIRATORY: No accessory muscle use. Clear to auscultation. Breath sounds equal bilaterally. GASTROINTESTINAL: Abdomen soft, no tenderness to palpation, + distended JPs x [address] with cloudy serosang dc Hepatic and splenic margins not palpable. MUSCULOSKELETAL: Extremities without clubbing, some cyanosis on toes on R, L foot well perfused, refill delayed, or edema. No obvious deformities. NEUROLOGICAL: awake, fully alert speech normal appropriately unswering questions PSYCHIATRIC: calm Assessment and Plan - Plan Large paraesophageal hernia sp perforation of stomach with diffuse contamination of abdominal cavity sp emergent lap repair Acute VDRF ALVIN CAD severe sp CABG on 04/04 worsening leukocytosis - leukemoid reaction, WBC of 35K b/l pleural effusions, consolidations Ileus C.glabrata sepsis source intraabd less likley line No drainabel fluid collections on abd/pel CT scan cont zosyn, cont micafungin fu repeat BC will repeat 2 D echo iof more + bl clx Will repeat CT A/P if cont to have unexplained worsening leukocytosis alanna mondragon RN @ [facility]
[2018-04-15] MEDS: Pantoprazole Inj 40 MG Vial IV.PUSH SCH ×3 (00:16→23:05)
[2018-04-15 03:53] LABS: Baso # (Auto) 0.3 th/mm3 (0.0-0.2); Baso % (Auto) 0.8 % (0.0-2.0); Eos # (Auto) 0.2 th/mm3 (0.0-0.4); Eos % (Auto) 0.6 % (0.0-4.0); Hematocrit 31.2 % (35.0-46.0); Hemoglobin 10.1 gm/dL (11.6-15.3); Lymph # (Auto) 1.5 th/mm3 (1.0-4.8); Mean Corpuscular HGB Conc 32.3 % (32.0-36.0); Mean Corpuscular Hemoglobin 28.9 pg (27.0-34.0); Mean Corpuscular Volume 89.5 fL (80.0-100.0); Mean Platelet Volume 9.3 fL (7.0-11.0); Mono # (Auto) 1.5 th/mm3 (0.0-0.9); Mono % (Auto) 3.9 % (0.0-8.0); Neut # (Auto) 33.9 th/mm3 (1.8-7.7); Neut % (Auto) 90.7 % (16.0-70.0); Platelet Count 237 th/mm3 (150-450); Red Blood Count 3.48 mil/mm3 (4.00-5.30); Red Cell Distribution Width 15.9 % (11.6-17.2); White Blood Count 37.3 th/mm3 (4.0-11.0)
[2018-04-15] MEDS: Insulin NovoLOG Aspart Correctional Sugar Inj SQ SCH ×7 (04:08→23:06)
[2018-04-15 04:20] LABS: Albumin 1.7 g/dL (3.4-5.0); Calcium 7.4 mg/dL (8.5-10.1); Carbon Dioxide 25.5 meq/L (21.0-32.0); Magnesium 2.1 mg/dL (1.5-2.5); Phosphorus 2.9 mg/dL (2.5-4.9); Potassium 3.3 meq/L (3.5-5.1); Total Protein 5.5 g/dL (6.4-8.2)
[2018-04-15 04:46] LABS: Eosinophils 1 % (0-4); Lymphocytes 3 % (9-44); Metamyelocytes 4 % (0-1); Monocytes 1 % (0-8); Tallied Nucleated RBC 1 (0-0)
[2018-04-15 04:50] LABS: Platelet Estimate Normal (Normal); Platelet Morphology Normal (Normal)
[2018-04-15 04:52] LABS: Polychromasia 2.3 % (0.0-1.9)
[2018-04-15 04:54] LABS: Ovalocytes 1+
[2018-04-15] MEDS: Piperacil/Tazo 3.375 GM Premix 50 ML IV.SIG SCH ×4 (06:22→20:32)
[2018-04-15] MEDS: Levothyroxine 100 MCG Tablet PO SCH (06:23)
[2018-04-15] MEDS: Potassium Chlor 20 mEq Premix 20 MEQ/100 ML PIGGYBACK IV.SIG PRN ×2 (06:47→08:39)
[2018-04-15] MEDS: Polyethylene Glycol 3350 17 GM Packet PO SCH (08:09)
[2018-04-15] MEDS: Docusate Sodium Liq 100 MG/10 ML UDC PO SCH ×2 (08:09→20:23)
--- NOTE | 2018-04-15 08:09 | P.PNCV ---
- Note Subjective/Hospital Course: 77/ female initially seen on 03/13/18 in [facility] office with Dr Warner, hx of progressive SOB over past few months . Known hx of CAD previous PCI's , ECHO revealed severe . Cardiac cath revealed multivessel disease PMH: Afib, Aortic stenosis, Asthma, CAD (coronary artery disease), CHF ( congestive heart failure), HLD (hyperlipidemia), HTN (hypertension) Hiatal hernia, Hypothyroid, LBBB (left bundle branch block), Mitral regurgitation, Myocardial infarct, Sleep apnea, TIA (transient ischemic attack) UTI (urinary tract infection) 04/04 pt electively admitted for surgery PREPROCEDURE DIAGNOSES 1. Severe Multi Vessel Coronary Artery Disease. 2. Severe aortic stenosis 3. Atrial fibrillation status post ablation POSTPROCEDURE DIAGNOSES 1. Severe Multi Vessel Coronary Artery Disease. 2. Severe aortic stenosis 3. Atrial fibrillation status post ablation 4. Heavily calcified ascending aorta SURGICAL PROCEDURE 1. Clampless off-pump Coronary Artery Bypass Grafting x 2 with Left Internal Mammary Artery (ZAPATA) to Left Anterior Descending (LAD), reverse saphenous vein graft to obtuse Marginal branch of the left Circumflex artery 2. Left leg Endoscopic Vein [place] 3. Left atrial appendage excision pt extubated after surgery crystalloid 2300cc, 1500cc EBL, 750cc cell saver 04/05 pt up in chair ECG with some mild global st elevation / pericarditis + rub, no pressors , stable for transfer, resume BB will need to resume coumadin when chest tubes out 04/06 chest tube dc without difficultly pt went into afib RVR last night and this am received 2nd bolus of amiodarone / po amiodarone increased will resume coumadin / this pm goal 2.5 / followed by Dr Menendez at home 04/07 pt was transferred back to CVICU yesterday became bradycardic / hypotensive / despite IV fluids calcium chloride / required Dopamine gtt / remains in afib rate now 90's , BP improved discussed with Dr Warner/ will consult cardiology regarding cardiac meds start lovenox and coumadin/ dc when INR > 2.0 dc fem line / consult PT / observe in CVICU today 04/08 Remains in atrial fibrillation with rapid ventricular response heart rate in the 120s Overnight events noted she received diltiazem, digoxin and Lopressor for heart rate with resultant hypotension requiring Dayday-Synephrine which is presently being weaned. Remains somewhat labile with her blood pressure Had echo this morning. Awaiting results Renal function worsening. Will consult nephrology. Likely secondary to hypoperfusion If ventricular function is okay, will give gentle hydration - Preoperative Diagnosis (1) Pneumoperitoneum (2) Paraesophageal hernia - Postoperative Diagnosis (1) Pneumoperitoneum (2) Paraesophageal hernia (3) Gastric ulcer, acute with perforation Date of procedure: 04/08/18 Procedure: Diagnostic laparoscopy Laparoscopic partial reduction of paraesophageal hernia Laparoscopic wedge resection of greater curvature of stomach 04/09 Operative findings noted Remains intubated and mechanically ventilated On Levophed for hemodynamic support. Weaning as tolerated Greatly appreciate Dr. Craig's input and assistance Renal function improving. Appreciate Dr. Holliday's input 04/10 remains sedated on vent 40% Fi02 SVV 17, CO 5.2/2.7 on Levo gtt at 2 mcq, in afib rate 110 creatinine improving left OANH drain 30cc/ 12 hrs, right OANH drain 10cc/ 12hr some drainage from prior chest tubes sites/ will dc prevena dressing 04/11 pt off all pressors , remains on 40% fi02 only on low dose fentanly for pain , awake follows commands, moves all extremities NA improving , creatinine improving, + hypoactive bowel sounds DC CVC line today, ok for Lovenox or Heparin SQ consult PT ROM 04/12 s/p right thoracentesis yesterday, removed 550cc bloody fluid remains on vent 40% awake , following commands, worsening leukocytosis cultures pending / ID following on Heparin gtt, rate improved 04/13 Clinically and hemodynamically stable. In atrial fibrillation with rate control. On heparin drip WBC continues to rise. Appreciate ID input and involvement Incentive spirometry and physical therapy as tolerated 04/14 Doing better. Hemodynamically stable Persistent leukocytosis. On antibiotics per ID Planned initiation of p.o. intake by general surgery 04/15 Clinically stable White count continues to rise. On antifungals and antimicrobials Remains in A. fib with rate control Objective: Vital Signs - 24 hr 04/14/18 10:40 04/14/18 11:00 04/14/18 14:00 Temperature 98.3 F Pulse Rate 99 H 111 H Respiratory Rate 20 20 Blood Pressure 139/72 Pulse Oximetry 96 98 96 04/14/18 15:00 04/14/18 15:37 04/14/18 17:08 Temperature 97.9 F Pulse Rate 101 H 86 Respiratory Rate 20 20 Blood Pressure 124/57 L Pulse Oximetry 97 96 04/14/18 19:00 04/14/18 20:24 04/14/18 23:00 Temperature 97.6 F 98 F Pulse Rate 100 H 84 100 H Respiratory Rate 24 18 24 Blood Pressure 141/62 H 150/68 H Pulse Oximetry 98 96 98 04/15/18 03:00 04/15/18 03:14 04/15/18 07:00 Temperature 98.6 F Pulse Rate 110 H 110 H 122 H Respiratory Rate 22 24 Blood Pressure 163/81 H Pulse Oximetry 95 04/15/18 07:12 Temperature Pulse Rate 110 H Respiratory Rate 24 Blood Pressure Pulse Oximetry 95 Labs: Laboratory Results - last 12 hr 04/14/18 04/15/18 04/15/18 20:59 00:00 03:35 WBC RBC Hgb Hct MCV MCH MCHC RDW Plt Count MPV Prelim Diff (Auto) Neut % (Auto) Lymph % (Auto) [place] % (Auto) Eos % (Auto) Baso % (Auto) Neut # (Auto) Lymph # (Auto) [place] # (Auto) Eos # (Auto) Baso # (Auto) WBC Differential Seg Neuts % (Manual) Band Neuts % (Manual) Lymphocytes % (Manual) Monocytes % (Manual) Eosinophils % (Manual) Metamyelocytes % (Man) Abs Neuts (Manual) Nucleated RBCs/100 WBC Differential Comment Platelet Estimate Platelet Morphology Polychromasia Ovalocytes APTT 41.9 H Sodium Potassium Chloride Carbon Dioxide Anion Gap BUN Creatinine Estimated GFR POC Glucose 108 Random Glucose Calcium Prot Corrected Calcium Phosphorus Magnesium Total Bilirubin AST ALT Alkaline Phosphatase Total Protein Albumin Stl C.difficile DNA Amp Negative St C. diff Tox Epid 027 Negative 04/15/18 04/15/18 04/15/18 03:35 03:35 03:53 WBC 37.3 H RBC 3.48 L Hgb 10.1 L Hct 31.2 L MCV 89.5 MCH 28.9 MCHC 32.3 RDW 15.9 Plt Count 237 MPV 9.3 Prelim Diff (Auto) Slide review pending Neut % (Auto) 90.7 H Lymph % (Auto) 4.0 L [place] % (Auto) 3.9 Eos % (Auto) 0.6 Baso % (Auto) 0.8 Neut # (Auto) 33.9 H Lymph # (Auto) 1.5 [place] # (Auto) 1.5 H Eos # (Auto) 0.2 Baso # (Auto) 0.3 H WBC Differential Manual diff final Seg Neuts % (Manual) 88 H Band Neuts % (Manual) 3 Lymphocytes % (Manual) 3 L Monocytes % (Manual) 1 Eosinophils % (Manual) 1 Metamyelocytes % (Man) 4 H Abs Neuts (Manual) 35.4 H Nucleated RBCs/100 WBC 1 H Differential Comment . Platelet Estimate Normal Platelet Morphology Normal Polychromasia 2.3 H Ovalocytes 1+ H APTT Sodium 142 Potassium 3.3 L Chloride 105 Carbon Dioxide 25.5 Anion Gap 12 BUN 21 H Creatinine 0.90 Estimated GFR 61 L POC Glucose 110 Random Glucose 108 H Calcium 7.4 L* Prot Corrected Calcium 8.3 L Phosphorus 2.9 Magnesium 2.1 Total Bilirubin 0.5 AST 61 H ALT 57 H Alkaline Phosphatase 101 Total Protein 5.5 L Albumin 1.7 L Stl C.difficile DNA Amp St C. diff Tox Epid 027 Result Diagrams: 04/15/18 03:35 04/15/18 03:35 - Plan (1) Severe aortic stenosis Plan: will need planned TAVR after discharge (2) Coronary artery disease involving jena coronary artery Plan: ASA, consider low dose BB was on verapamil at home (3) Congestive heart failure (CHF) Plan: gentle diuresis (4) Atrial fibrillation Plan: s/p atrial appendage excision resume Coumadin / when cleared by general surgery (5) COPD (chronic obstructive pulmonary disease) Plan: nebs ezpap and acapella (6) S/P CABG (coronary artery bypass graft) Plan: ASA, resume home med crestor pulm toileting , nebs ezpap, acapella OOB ambulate eval for rehab at discharge (7) S/P exploratory laparotomy Plan: general surgery following (10) Respiratory failure requiring intubation Plan: vent weaning as per CCM (11) Leukocytosis Plan: hernandes -culture ABX per ID DC CVC line (12) Acute renal failure Plan: nephro following
[2018-04-15] MEDS: Multivitamin/Minerals Therapeutic Tablet PO SCH (08:38)
--- NOTE | 2018-04-15 10:14 | P.PNCC ---
Subjective Subjective Remarks/Hospital Course: This is a 77-year-old female. Date of admission 04/04/2018. Date of consultation 04/06/2018. Patient has no history of aortic stenosis, coronary disease, hypertension, hyperlipidemia, gastroesophageal reflux disease, hypothyroidism and depression. On 04/04, patient had a two-vessel CABG ZAPATA to LAD, reverse saphenous vein graft to OM of left circumflex with left EVH and CLARA excision. Without complications. Today, patient this morning was in atrial fibrillation with rapid ventricular response. Received 150 mg IV amiodarone and started on oral amiodarone 400 mg along with 25 mg of oral metoprolol tartrate.. She became bradycardic this afternoon and we are asked to evaluate the patient. She is received 2 g of calcium chloride and is currently been started on dopamine drip. Her heart rate and blood pressure immediately improved after the infusion of calcium chloride. In reviewing laboratories, potassium magnesium are within normal limits. She does have a new leukocytosis of 19,000. She denies shortness of breath. She is more confused likely due to hypoperfusion 04/07 Patient is lying in bed in NAD. Feeling nauseas, denies any abdominal pain. 04/08 Patient was given Lopressor, Cardizem and Digoxin overnight for tachycardic became hypotensive and started on Neosyn ( current MAP 81mmHg). Renal function worse today with Cr: 2.22 from 1.76 04/09 Patient s/p Laparoscopic partial reduction of paraesophageal hernia and wedge resection of greater curvature of stomach. Remains intubated postop on Levophed 3 mics, sedated with Fentanyl and on is Precedex drip. s/p [id number] PRBC overnight Hgb 9.6 this morning from 6.8 04/10 Patient remains intubated and sedated. On Levophed 2 mics. :100.4 at 4am, renal function is improving with Cr: 1.40 from 1.99 04/11 Patient remains intubated off Levophed. On Fentanyl infusion for sedation. Renal function is improving with Cr:1.18 from 1.4. Afebrile. 04/12 Patient is awake and alert on CPAP with PS 10, PEEP:5 and FIO2 35%, s/p CT guided right thoracentesis yesterday with removal 550ml. Afebrile. On Heparin drip. 04/13 Patient was extubated yesterday on 2L oxygen, on Heparin drip. Afebrile. 04/14 No events overnight. Afebrile, WBC is rising 35 today from 30. On Heparin drip. 04/15 Patient was anxious this morning. Afebrile however WBC continue to rise 37 today. On Heparin drip. Objective Vital Signs / I&O: Vital Signs 04/14/18 10:40 04/14/18 11:00 04/14/18 14:00 Temperature 98.3 F Pulse Rate 99 H 111 H Respiratory Rate 20 20 Blood Pressure 139/72 Pulse Oximetry 96 98 96 04/14/18 15:00 04/14/18 15:37 04/14/18 17:08 Temperature 97.9 F Pulse Rate 101 H 86 Respiratory Rate 20 20 Blood Pressure 124/57 L Pulse Oximetry 97 96 04/14/18 19:00 04/14/18 20:24 04/14/18 23:00 Temperature 97.6 F 98 F Pulse Rate 100 H 84 100 H Respiratory Rate 24 18 24 Blood Pressure 141/62 H 150/68 H Pulse Oximetry 98 96 98 04/15/18 03:00 04/15/18 03:14 04/15/18 07:00 Temperature 98.6 F Pulse Rate 110 H 110 H 112 H Respiratory Rate 22 24 Blood Pressure 163/81 H Pulse Oximetry 95 04/15/18 07:12 Temperature Pulse Rate 110 H Respiratory Rate 24 Blood Pressure Pulse Oximetry 95 Intake & Output 04/14/18 04/15/18 04/15/18 18:59 06:59 18:59 Intake Total 1830 / 1830 900 / 900 100 / 100 Output Total 850 / 850 368 / 368 Balance 980 / 980 532 / 532 100 / 100 Weight 94.5 kg Intake: IV 1430 / 1430 900 / 900 100 / 100 Precedex Inj 200 MCG In NS Inj 30 / 30 48 ML @ 0.2 MCG/KG/HR 4.75 mls/ hr IV.CONT TITRATE PRN Rx#: [id number] D5W Inj 1,000 ML @ 42 mls/hr IV 1000 / 1000 700 / 700 .CONT .[id number] ON LICENSE OF [facility] Rx#:[id number] Heparin/D5W 25,000 U/250 mL 25, 100 / 100 000 unit In 250 ml @ 1,700 UNITS/HR 17 mls/hr IV.CONT TITRATE PRN Rx#:[id number] Mycamine Inj 150 MG In NS Inj 100 / 100 100 ML @ 100 mls/hr IV.SIG Q24H ON LICENSE OF [facility] Rx#:[id number] Zosyn 3.375 GM Premix 50 ML @ 100 / 100 100 / 100 200 mls/hr IV.SIG Q6H ON LICENSE OF [facility] Rx#: [id number] KCl 20 mEq Premix Inj 20 meq In 200 / 200 100 / 100 100 ml @ 50 mls/hr IV.SIG Q2H PRN Rx#:[id number] Oral 200 / 200 Tube Feeding 100 / 100 Tube Irrigant 100 / 100 Output: Urine Amount (Catheter) 850 / 850 350 / 350 Indwelling Urethral Catheter 850 / 850 350 / 350 Wound Drainage # 1 Right Anterior Abdomen 15 # 2 Left Anterior Abdomen 3 / 3 Other: Date of Last Bowel Movement 04/14/18 04/15/18 04/15/18 Result Diagrams: 04/15/18 03:35 04/15/18 03:35 Other Results: Laboratory Results - last 12 hr 04/15/18 04/15/18 04/15/18 00:00 03:35 03:35 WBC 37.3 H RBC 3.48 L Hgb 10.1 L Hct 31.2 L MCV 89.5 MCH 28.9 MCHC 32.3 RDW 15.9 Plt Count 237 MPV 9.3 Prelim Diff (Auto) Slide review pending Neut % (Auto) 90.7 H Lymph % (Auto) 4.0 L [place] % (Auto) 3.9 Eos % (Auto) 0.6 Baso % (Auto) 0.8 Neut # (Auto) 33.9 H Lymph # (Auto) 1.5 [place] # (Auto) 1.5 H Eos # (Auto) 0.2 Baso # (Auto) 0.3 H WBC Differential Manual diff final Seg Neuts % (Manual) 88 H Band Neuts % (Manual) 3 Lymphocytes % (Manual) 3 L Monocytes % (Manual) 1 Eosinophils % (Manual) 1 Metamyelocytes % (Man) 4 H Abs Neuts (Manual) 35.4 H Nucleated RBCs/100 WBC 1 H Differential Comment . Platelet Estimate Normal Platelet Morphology Normal Polychromasia 2.3 H Ovalocytes 1+ H APTT 41.9 H Sodium Potassium Chloride Carbon Dioxide Anion Gap BUN Creatinine Estimated GFR POC Glucose Random Glucose Calcium Prot Corrected Calcium Phosphorus Magnesium Total Bilirubin AST ALT Alkaline Phosphatase Total Protein Albumin Stl C.difficile DNA Amp Negative St C. diff Tox Epid 027 Negative 04/15/18 04/15/18 04/15/18 03:35 03:53 08:08 WBC RBC Hgb Hct MCV MCH MCHC RDW Plt Count MPV Prelim Diff (Auto) Neut % (Auto) Lymph % (Auto) [place] % (Auto) Eos % (Auto) Baso % (Auto) Neut # (Auto) Lymph # (Auto) [place] # (Auto) Eos # (Auto) Baso # (Auto) WBC Differential Seg Neuts % (Manual) Band Neuts % (Manual) Lymphocytes % (Manual) Monocytes % (Manual) Eosinophils % (Manual) Metamyelocytes % (Man) Abs Neuts (Manual) Nucleated RBCs/100 WBC Differential Comment Platelet Estimate Platelet Morphology Polychromasia Ovalocytes APTT Sodium 142 Potassium 3.3 L Chloride 105 Carbon Dioxide 25.5 Anion Gap 12 BUN 21 H Creatinine 0.90 Estimated GFR 61 L POC Glucose 110 134 H Random Glucose 108 H Calcium 7.4 L* Prot Corrected Calcium 8.3 L Phosphorus 2.9 Magnesium 2.1 Total Bilirubin 0.5 AST 61 H ALT 57 H Alkaline Phosphatase 101 Total Protein 5.5 L Albumin 1.7 L Stl C.difficile DNA Amp St C. diff Tox Epid 027 Imaging: Abdomen/Bladder Ultrasound 04/08/18 00:00 CONCLUSION: Kidneys within normal limits. Right pleural effusion noted. Chest CT 04/08/18 10:09 CONCLUSION: 1. Large hiatal hernia containing a large portion of the stomach with moderate amount of free air in the hiatal hernia and in the upper abdomen. Distal gastric wall thickening and extraluminal fluid adjacent to the distal stomach. Most likely etiology for the findings is a perforated gastric ulcer. Free fluid is also seen in the upper abdomen. 2. New bilateral lower lobe atelectasis/consolidation and small bilateral pleural effusions. Chest Ultrasound 04/11/18 00:00 CONCLUSION: 1. Left pleural effusion and marked on the skin. Thoracentesis CT 04/11/18 00:00 CONCLUSION: 1. Uncomplicated CT-guided thoracentesis. Abdomen X-Ray 04/11/18 12:13 CONCLUSION: Nonspecific, nonobstructive bowel gas pattern which may represent a mild ileus or gastroenteritis. Abdomen/Pelvis CT 04/12/18 00:00 CONCLUSION: 1. The previously noted free air on the prior study has resolved. Patient is recently status post abdominal surgery. There are surgical drains in the upper abdomen. 2. There is a trace of fluid adjacent to the liver. There is a small amount of free fluid deep in the pelvis. 3. Multiple dilated loops of small bowel with fluid and air suggestive of a postsurgical ileus. 4. There continues to be a prominent hiatal hernia. 5. Small bilateral pleural effusions with atelectasis in both lung bases. Chest X-Ray 04/14/18 09:40 CONCLUSION: Persistent mild vascular congestion and left basilar airspace disease. Suspected small effusions. Otherwise stable chest status post extubation. Objective Remarks: GENERAL: Patient is 77 yo lying in bed intubated SKIN: Warm and dry. HEAD: Normocephalic. EYES: No scleral icterus. No injection or drainage. NECK: Supple, trachea midline. No JVD or lymphadenopathy. CARDIOVASCULAR: Tachycardic without murmurs, gallops, or rubs. RESPIRATORY: Breath sounds equal bilaterally. No accessory muscle use. GASTROINTESTINAL: Abdomen soft, non-tender, nondistended. MUSCULOSKELETAL: No cyanosis, or edema. Neuro: Awake and alert Assessment and Plan - Assessment and Plan Plan: Neuro/Psych: Depressive disorder NOS History of TIA Awake and alert on paroxetine 10 mg daily for depression. CV: Postoperative CABG x2 ZAPATA to LAD, reverse saphenous vein graft to OM with left EVH and CLARA excision -Dr. Warner Atrial fibrillation Essential hypertension by history Hyperlipidemia Coronary artery disease status post PTCA left anterior descending proximal monitor HR and BP keep MAP>65mmHG On Verapamil 40mg TID, ASA 81mg daily Cardiac catheterization 417 revealed left ear 0.48 cm area. EF 55-60%. Moderate aortic regurgitation. On rosuvastatin 10 mg daily at home. Noted allergies to atorvastatin simvastatin Cards is following- Dr. Valle On Heparin drip- Monitor PTT per protocol. Resp: VDRF Extubated 04/12 Obstructive sleep apnea Continue with oxygen keep sats> 92% Bronchodilators, IS CXR 04/14: mild vascular congestion and left basilar airspace disease. small effusions. s/p CT guided right thoracentesis 04/11 with removal 550 ml pleural fluid Exudative effusion by LDH criteria likely 2nd diuretics. GI: s/p Laparoscopic partial reduction of paraesophageal hernia, wedge resection of greater curvature of stomach 04/08 Diverticulosis Gastroesophageal reflux disease Hiatal hernia Start PO diet if ok with surgery, patient pulled her NGT Pantoprazole for GI prophylaxis 04/[address] abd/pelvis: The previously noted free air on the prior study has resolved. Patient is recently status post abdominal surgery. There are surgical drains in the upper abdomen. Multiple dilated loops of small bowel with fluid and air suggestive of a postsurgical ileus. Prominent hiatal hernia. Docusate sodium/senna 1 tablet twice daily for hours along with polythene glycol 17 g daily KUB 04/11: Nonspecific, nonobstructive bowel gas pattern which may represent a mild ileus KUB abdomen 04/07 : Nonspecific bowel gas pattern with scattered small and large bowel gas. 04/08 CT abd/pelvis- Prominent amount of free air and free fluid in the upper abdomen and within a large hiatal hernia. A large portion of the stomach is in a hiatal hernia. Most likely etiology for the findings is a perforated gastric ulcer. 04/08 s/p Laparoscopic partial reduction of paraesophageal hernia, wedge resection of greater curvature of stomach, washout, drain placement performed. Monitor OANH drainage- Surgery- Dr. Craig. Endo: Hypothyroidism Currently on levothyroxine 100 mcg p.o. daily TSH:0.72 Sliding scale insulin with aspart insulin Renal: Acute kidney injury Monitor renal function, I/O's, electrolytes replacement per protocol Lasix 40mg IV daily. Will need K replacement today Renal US: No hydronephrosis Heme: Leukocytosis Normocytic anemia Chronic warfarin use Monitor CBC, Coags daily.on Heparin drip per cards s/p transfusion 2u PRBC overnight 04/09 ID: Fungemia 04/08 On empiric abx ( Zosyn, Micafungin) Monitor for signs of infections ( fever, WBC ) Follow up BC 04/08: [place] Seen by Optho- No evidence of endophthalmitis C-diff PCR negative ID is following MSK: Elevated BMI Osteoporosis/osteoarthritis Lumbar radiculopathy Physical therapy evaluate and treat Access -Utilize peripheral IV. Prophylaxis -GI -pantoprazole -DVT-SCD/pharmacological prophylaxis- Heparin dip Level 3
--- NOTE | 2018-04-15 12:28 | P.PNID ---
Subjective Remarks: WBC went to 35K denies abd pain had large unformed BM seen byophthalmollogist : no fungal endophthalmitis seen on exam. on NC O2 off pressors BC growing C. glabrata No central lines Methylene blue leak test is negative on 04/14 micafungin added Antibiotics: micafungin fluconazol zosyn Allergies/Adverse Reactions: Allergies atorvastatin Adverse Reaction (Verified 04/04/18 06:21) Hypotension simvastatin Adverse Reaction (Verified 04/04/18 06:21) Hypotension Objective Vital Signs 04/14/18 14:00 04/14/18 15:00 04/14/18 15:37 Temperature 97.9 F Pulse Rate 101 H 86 Respiratory Rate 20 20 Blood Pressure 124/57 L Pulse Oximetry 96 97 04/14/18 17:08 04/14/18 19:00 04/14/18 20:24 Temperature 97.6 F Pulse Rate 100 H 84 Respiratory Rate 24 18 Blood Pressure 141/62 H Pulse Oximetry 96 98 96 04/14/18 23:00 04/15/18 03:00 04/15/18 03:14 Temperature 98 F Pulse Rate 100 H 110 H 110 H Respiratory Rate 24 22 Blood Pressure 150/68 H Pulse Oximetry 98 04/15/18 07:00 04/15/18 07:12 04/15/18 11:00 Temperature 98.6 F 98.8 F Pulse Rate 112 H 110 H 97 H Respiratory Rate 24 24 20 Blood Pressure 163/81 H 169/95 H Pulse Oximetry 95 95 95 Intake & Output 04/14/18 04/15/18 04/15/18 18:59 06:59 18:59 Intake Total 1830 / 1830 900 / 900 550 / 550 Output Total 850 / 850 368 / 368 Balance 980 / 980 532 / 532 550 / 550 Weight 94.5 kg Intake: IV 1430 / 1430 900 / 900 550 / 550 Precedex Inj 200 MCG In NS Inj 30 / 30 48 ML @ 0.2 MCG/KG/HR 4.75 mls/ hr IV.CONT TITRATE PRN Rx#: [id number] D5W Inj 1,000 ML @ 42 mls/hr IV 1000 / 1000 700 / 700 300 / 300 .CONT .[id number] [facility] Rx#:[id number] Heparin/D5W 25,000 U/250 mL 25, 100 / 100 000 unit In 250 ml @ 1,700 UNITS/HR 17 mls/hr IV.CONT TITRATE PRN Rx#:[id number] Mycamine Inj 150 MG In NS Inj 100 / 100 100 ML @ 100 mls/hr IV.SIG Q24H [facility] Rx#:[id number] Zosyn 3.375 GM Premix 50 ML @ 100 / 100 100 / 100 50 / 50 200 mls/hr IV.SIG Q6H [facility] Rx#: [id number] KCl 20 mEq Premix Inj 20 meq In 200 / 200 200 / 200 100 ml @ 50 mls/hr IV.SIG Q2H PRN Rx#:[id number] Oral 200 / 200 Tube Feeding 100 / 100 Tube Irrigant 100 / 100 Output: Urine Amount (Catheter) 850 / 850 350 / 350 Indwelling Urethral Catheter 850 / 850 350 / 350 Wound Drainage # 1 Right Anterior Abdomen # 2 Left Anterior Abdomen Other: Date of Last Bowel Movement 04/14/18 04/15/18 04/15/18 04/12/18 05:11 Blood - Peripheral Aerobic Blood Culture - Preliminary No growth in 3 days 04/12/18 05:11 Blood - Peripheral Anaerobic Blood Culture - Preliminary No growth in 3 days 04/12/18 05:25 Blood - Peripheral Aerobic Blood Culture - Preliminary No growth in 3 days 04/12/18 05:25 Blood - Peripheral Anaerobic Blood Culture - Preliminary No growth in 3 days 04/15/18 00:00 Stool Stool Occult Blood (BALTAZAR) - Final Hemoccult positive 04/11/18 16:10 Fluid - Pleural fluid Gram Stain - Final 04/11/18 16:10 Fluid - Pleural fluid Body Fluid Culture - Final No growth in 72 hours (aerobically and anaerobically ) 04/08/18 14:40 Blood - Peripheral Aerobic Blood Culture - Final [place] 04/08/18 14:40 Blood - Peripheral Anaerobic Blood Culture - Final No growth in 5 days 04/11/18 16:57 Sputum - Endotracheal Gram Stain - Final 04/11/18 16:57 Sputum - Endotracheal Sputum Culture - Final Moderate growth normal respiratory darwin 04/08/18 14:33 Blood - Peripheral Aerobic Blood Culture - Final No growth in 5 days 04/08/18 14:33 Blood - Peripheral Anaerobic Blood Culture - Final No growth in 5 days Lab - Hematology Results 04/14/18 04/15/18 04:43 03:35 WBC 35.6 H 37.3 H RBC 3.65 L 3.48 L Hgb 10.6 L 10.1 L Hct 32.1 L 31.2 L MCV 87.8 89.5 MCH 29.1 28.9 MCHC 33.1 32.3 RDW 16.1 15.9 Plt Count 208 237 MPV 9.0 9.3 Prelim Diff (Auto) Slide review pending Slide review pending Neut % (Auto) 88.0 H 90.7 H Lymph % (Auto) 4.6 L 4.0 L [place] % (Auto) 5.5 3.9 Eos % (Auto) 0.8 0.6 Baso % (Auto) 1.1 0.8 Neut # (Auto) 31.4 H 33.9 H Lymph # (Auto) 1.6 1.5 [place] # (Auto) 1.9 H 1.5 H Eos # (Auto) 0.3 0.2 Baso # (Auto) 0.4 H 0.3 H WBC Differential Manual diff final Manual diff final Seg Neuts % (Manual) 82 H 88 H Band Neuts % (Manual) 3 3 Lymphocytes % (Manual) 5 L 3 L Monocytes % (Manual) 9 H 1 Eosinophils % (Manual) 1 Metamyelocytes % (Man) 1 4 H Abs Neuts (Manual) 30.6 H 35.4 H Nucleated RBCs/100 WBC 2 H 1 H Differential Comment . . Toxic Granulation 2+ H Platelet Estimate Normal Normal Platelet Morphology Normal Normal Polychromasia 2.3 H Ovalocytes 1+ H Hematology Comments Lab - Chemistry Results 04/13/18 04/13/18 04/14/18 14:51 20:51 00:39 Sodium Potassium Chloride Carbon Dioxide Anion Gap BUN Creatinine Estimated GFR POC Glucose 92 91 94 Random Glucose Calcium Prot Corrected Calcium Phosphorus Magnesium Total Bilirubin AST ALT Alkaline Phosphatase Total Protein Albumin 04/14/18 04/14/18 04/14/18 04:43 07:51 13:13 Sodium 148 H Potassium 3.5 Chloride 109 H Carbon Dioxide 27.7 Anion Gap 11 BUN 25 H Creatinine 1.05 H Estimated GFR 51 L POC Glucose 83 92 Random Glucose 78 Calcium 7.6 L Prot Corrected Calcium Phosphorus 3.2 Magnesium 2.2 Total Bilirubin 0.5 AST 66 H ALT 65 H Alkaline Phosphatase 99 Total Protein 5.5 L Albumin 1.6 L 1104/14/18 04/15/18 16:53 20:59 03:35 Sodium 142 Potassium 3.3 L Chloride 105 Carbon Dioxide 25.5 Anion Gap 12 BUN 21 H Creatinine 0.90 Estimated GFR 61 L POC Glucose 93 108 Random Glucose 108 H Calcium 7.4 L* Prot Corrected Calcium 8.3 L Phosphorus 2.9 Magnesium 2.1 Total Bilirubin 0.5 AST 61 H ALT 57 H Alkaline Phosphatase 101 Total Protein 5.5 L Albumin 1.7 L 04/15/18 04/15/18 03:53 08:08 Sodium Potassium Chloride Carbon Dioxide Anion Gap BUN Creatinine Estimated GFR POC Glucose 110 134 H Random Glucose Calcium Prot Corrected Calcium Phosphorus Magnesium Total Bilirubin AST ALT Alkaline Phosphatase Total Protein Albumin Imaging: ITS Impressions Abdomen/Bladder Ultrasound 04/08/18 00:00 CONCLUSION: Kidneys within normal limits. Right pleural effusion noted. Chest CT 04/08/18 10:09 CONCLUSION: 1. Large hiatal hernia containing a large portion of the stomach with moderate amount of free air in the hiatal hernia and in the upper abdomen. Distal gastric wall thickening and extraluminal fluid adjacent to the distal stomach. Most likely etiology for the findings is a perforated gastric ulcer. Free fluid is also seen in the upper abdomen. 2. New bilateral lower lobe atelectasis/consolidation and small bilateral pleural effusions. Chest Ultrasound 04/11/18 00:00 CONCLUSION: 1. Left pleural effusion and marked on the skin. Thoracentesis CT 04/11/18 00:00 CONCLUSION: 1. Uncomplicated CT-guided thoracentesis. Abdomen X-Ray 04/11/18 12:13 CONCLUSION: Nonspecific, nonobstructive bowel gas pattern which may represent a mild ileus or gastroenteritis. Abdomen/Pelvis CT 04/12/18 00:00 CONCLUSION: 1. The previously noted free air on the prior study has resolved. Patient is recently status post abdominal surgery. There are surgical drains in the upper abdomen. 2. There is a trace of fluid adjacent to the liver. There is a small amount of free fluid deep in the pelvis. 3. Multiple dilated loops of small bowel with fluid and air suggestive of a postsurgical ileus. 4. There continues to be a prominent hiatal hernia. 5. Small bilateral pleural effusions with atelectasis in both lung bases. Chest X-Ray 04/14/18 09:40 CONCLUSION: Persistent mild vascular congestion and left basilar airspace disease. Suspected small effusions. Otherwise stable chest status post extubation. Physical Exam: GENERAL: NAD SKIN: Warm and dry. no rash HEAD: Atraumatic. Normocephalic. EYES: Pupils equal and round. No scleral icterus. No injection or drainage. ENT: No nasal bleeding or discharge. Mucous membranes pink and moist. NECK: Trachea midline. No JVD. CARDIOVASCULAR: Regular rate and rhythm. RESPIRATORY: No accessory muscle use. Clear to auscultation. Breath sounds equal bilaterally. GASTROINTESTINAL: Abdomen soft, no tenderness to palpation, + distended JPs x [address] with cloudy serosang dc Hepatic and splenic margins not palpable. MUSCULOSKELETAL: Extremities without clubbing, some cyanosis on toes on R, L foot well perfused, refill delayed, or edema. No obvious deformities. NEUROLOGICAL: awake, fully alert speech normal appropriately unswering questions PSYCHIATRIC: calm
--- NOTE | 2018-04-15 12:34 | P.PNID ---
Subjective Remarks: ID [facility] for is a 77 CF with multiple med problems including Severe Multi Vessel Coronary Artery Disease and Severe aortic stenosis sp Coronary Artery Bypass Grafting x 2 with Left Internal Mammary Artery (ZAPATA) to Left Anterior Descending (LAD), reverse saphenous vein graft to obtuse Marginal branch of the left Circumflex artery by Dr Fermin Warner on 04/04/18. was c/o abd pain postoperatively, was hypotensive and WBC went up to [address] was done yday and showed free air c/w gastric perforation: Large hiatal hernia containing a large portion of the stomach with moderate amount of free air in the hiatal hernia and in the upper abdomen. Distal gastric wall thickening and extraluminal fluid adjacent to the distal stomach. Most likely etiology for the findings is a perforated gastric ulcer. Free fluid is also seen in the upper abdomen. Pt underwent emergent surgery yday: sp Laparoscopic partial reduction of paraesophageal hernia and wedge resection of greater curvature of stomach by Dr Craig, 04/08/18. OP report reviewed. Fuindings include Diffuse contamination of abdominal cavity. Large paraesophageal hernia. Multiple full thickness perforation of greater curvature of stomach Pt remains on vent She is on low dose pressors, UOP is low, creatinine is up, but better today She is on zosyn, fluconazole IV Pt is afebrile, WBC is 5 K, very prominent bandemia 31% Overnight events reviewed. No fevers No rash No diarrhea Sitting bedside in a chair. WBC went to 37.3 denies abd pain had large unformed BM seen by ophthalmollogist : no fungal endophthalmitis seen on exam. off pressors BC growing C. glabrata No central lines Methylene blue leak test is negative on 04/14 Antibiotics: micafungin fluconazol zosyn Lines: Lines ok Past Medical History: reviewed Allergies/Adverse Reactions: Allergies atorvastatin Adverse Reaction (Verified 04/04/18 06:21) Hypotension simvastatin Adverse Reaction (Verified 04/04/18 06:21) Hypotension Objective Vital Signs 04/14/18 14:00 04/14/18 15:00 04/14/18 15:37 Temperature 97.9 F Pulse Rate 101 H 86 Respiratory Rate 20 20 Blood Pressure 124/57 L Pulse Oximetry 96 97 04/14/18 17:08 04/14/18 19:00 04/14/18 20:24 Temperature 97.6 F Pulse Rate 100 H 84 Respiratory Rate 24 18 Blood Pressure 141/62 H Pulse Oximetry 96 98 96 04/14/18 23:00 04/15/18 03:00 04/15/18 03:14 Temperature 98 F Pulse Rate 100 H 110 H 110 H Respiratory Rate 24 22 Blood Pressure 150/68 H Pulse Oximetry 98 04/15/18 07:00 04/15/18 07:12 04/15/18 11:00 Temperature 98.6 F 98.8 F Pulse Rate 112 H 110 H 97 H Respiratory Rate 24 24 20 Blood Pressure 163/81 H 169/95 H Pulse Oximetry 95 95 95 Intake & Output 04/14/18 04/15/18 04/15/18 18:59 06:59 18:59 Intake Total 1830 / 1830 900 / 900 550 / 550 Output Total 850 / 850 368 / 368 Balance 980 / 980 532 / 532 550 / 550 Weight 94.5 kg Intake: IV 1430 / 1430 900 / 900 550 / 550 Precedex Inj 200 MCG In NS Inj 30 / 30 48 ML @ 0.2 MCG/KG/HR 4.75 mls/ hr IV.CONT TITRATE PRN Rx#: [id number] D5W Inj 1,000 ML @ 42 mls/hr IV 1000 / 1000 700 / 700 300 / 300 .CONT .[id number] [facility] Rx#:[id number] Heparin/D5W 25,000 U/250 mL 25, 100 / 100 000 unit In 250 ml @ 1,700 UNITS/HR 17 mls/hr IV.CONT TITRATE PRN Rx#:[id number] Mycamine Inj 150 MG In NS Inj 100 / 100 100 ML @ 100 mls/hr IV.SIG Q24H [facility] Rx#:[id number] Zosyn 3.375 GM Premix 50 ML @ 100 / 100 100 / 100 50 / 50 200 mls/hr IV.SIG Q6H [facility] Rx#: [id number] KCl 20 mEq Premix Inj 20 meq In 200 / 200 200 / 200 100 ml @ 50 mls/hr IV.SIG Q2H PRN Rx#:[id number] Oral 200 / 200 Tube Feeding 100 / 100 Tube Irrigant 100 / 100 Output: Urine Amount (Catheter) 850 / 850 350 / 350 Indwelling Urethral Catheter 850 / 850 350 / 350 Wound Drainage # 1 Right Anterior Abdomen 15 / 15 # 2 Left Anterior Abdomen Other: Date of Last Bowel Movement 04/14/18 04/15/18 04/15/18 04/12/18 05:11 Blood - Peripheral Aerobic Blood Culture - Preliminary No growth in 3 days 04/12/18 05:11 Blood - Peripheral Anaerobic Blood Culture - Preliminary No growth in 3 days 04/12/18 05:25 Blood - Peripheral Aerobic Blood Culture - Preliminary No growth in 3 days 04/12/18 05:25 Blood - Peripheral Anaerobic Blood Culture - Preliminary No growth in 3 days 04/15/18 00:00 Stool Stool Occult Blood (BALTAZAR) - Final Hemoccult positive 04/11/18 16:10 Fluid - Pleural fluid Gram Stain - Final 04/11/18 16:10 Fluid - Pleural fluid Body Fluid Culture - Final No growth in 72 hours (aerobically and anaerobically ) 04/08/18 14:40 Blood - Peripheral Aerobic Blood Culture - Final [place] 04/08/18 14:40 Blood - Peripheral Anaerobic Blood Culture - Final No growth in 5 days 04/11/18 16:57 Sputum - Endotracheal Gram Stain - Final 04/11/18 16:57 Sputum - Endotracheal Sputum Culture - Final Moderate growth normal respiratory darwin 04/08/18 14:33 Blood - Peripheral Aerobic Blood Culture - Final No growth in 5 days 04/08/18 14:33 Blood - Peripheral Anaerobic Blood Culture - Final No growth in 5 days Lab - Hematology Results 04/14/18 04/15/18 04:43 03:35 WBC 35.6 H 37.3 H RBC 3.65 L 3.48 L Hgb 10.6 L 10.1 L Hct 32.1 L 31.2 L MCV 87.8 89.5 MCH 29.1 28.9 MCHC 33.1 32.3 RDW 16.1 15.9 Plt Count 208 237 MPV 9.0 9.3 Prelim Diff (Auto) Slide review pending Slide review pending Neut % (Auto) 88.0 H 90.7 H Lymph % (Auto) 4.6 L 4.0 L [place] % (Auto) 5.5 3.9 Eos % (Auto) 0.8 0.6 Baso % (Auto) 1.1 0.8 Neut # (Auto) 31.4 H 33.9 H Lymph # (Auto) 1.6 1.5 [place] # (Auto) 1.9 H 1.5 H Eos # (Auto) 0.3 0.2 Baso # (Auto) 0.4 H 0.3 H WBC Differential Manual diff final Manual diff final Seg Neuts % (Manual) 82 H 88 H Band Neuts % (Manual) 3 3 Lymphocytes % (Manual) 5 L 3 L Monocytes % (Manual) 9 H 1 Eosinophils % (Manual) 1 Metamyelocytes % (Man) 1 4 H Abs Neuts (Manual) 30.6 H 35.4 H Nucleated RBCs/100 WBC 2 H 1 H Differential Comment . . Toxic Granulation 2+ H Platelet Estimate Normal Normal Platelet Morphology Normal Normal Polychromasia 2.3 H Ovalocytes 1+ H Hematology Comments Lab - Chemistry Results 04/13/18 04/13/18 04/14/18 14:51 20:51 00:39 Sodium Potassium Chloride Carbon Dioxide Anion Gap BUN Creatinine Estimated GFR POC Glucose 92 91 94 Random Glucose Calcium Prot Corrected Calcium Phosphorus Magnesium Total Bilirubin AST ALT Alkaline Phosphatase Total Protein Albumin 04/14/18 04/14/18 04/14/18 04:43 07:51 13:13 Sodium 148 H Potassium 3.5 Chloride 109 H Carbon Dioxide 27.7 Anion Gap 11 BUN 25 H Creatinine 1.05 H Estimated GFR 51 L POC Glucose 83 92 Random Glucose 78 Calcium 7.6 L Prot Corrected Calcium Phosphorus 3.2 Magnesium 2.2 Total Bilirubin 0.5 AST 66 H ALT 65 H Alkaline Phosphatase 99 Total Protein 5.5 L Albumin 1.6 L 04/14/18 04/14/18 04/15/18 16:53 20:59 03:35 Sodium 142 Potassium 3.3 L Chloride 105 Carbon Dioxide 25.5 Anion Gap 12 BUN 21 H Creatinine 0.90 Estimated GFR 61 L POC Glucose 93 108 Random Glucose 108 H Calcium 7.4 L* Prot Corrected Calcium 8.3 L Phosphorus 2.9 Magnesium 2.1 Total Bilirubin 0.5 AST 61 H ALT 57 H Alkaline Phosphatase 101 Total Protein 5.5 L Albumin 1.7 L 04/15/18 04/15/18 03:53 08:08 Sodium Potassium Chloride Carbon Dioxide Anion Gap BUN Creatinine Estimated GFR POC Glucose 110 134 H Random Glucose Calcium Prot Corrected Calcium Phosphorus Magnesium Total Bilirubin AST ALT Alkaline Phosphatase Total Protein Albumin Imaging: ITS Impressions Abdomen/Bladder Ultrasound 04/08/18 00:00 CONCLUSION: Kidneys within normal limits. Right pleural effusion noted. Chest CT 04/08/18 10:09 CONCLUSION: 1. Large hiatal hernia containing a large portion of the stomach with moderate amount of free air in the hiatal hernia and in the upper abdomen. Distal gastric wall thickening and extraluminal fluid adjacent to the distal stomach. Most likely etiology for the findings is a perforated gastric ulcer. Free fluid is also seen in the upper abdomen. 2. New bilateral lower lobe atelectasis/consolidation and small bilateral pleural effusions. Chest Ultrasound 04/11/18 00:00 CONCLUSION: 1. Left pleural effusion and marked on the skin. Thoracentesis CT 04/11/18 00:00 CONCLUSION: 1. Uncomplicated CT-guided thoracentesis. Abdomen X-Ray 04/11/18 12:13 CONCLUSION: Nonspecific, nonobstructive bowel gas pattern which may represent a mild ileus or gastroenteritis. Abdomen/Pelvis CT 04/12/18 00:00 CONCLUSION: 1. The previously noted free air on the prior study has resolved. Patient is recently status post abdominal surgery. There are surgical drains in the upper abdomen. 2. There is a trace of fluid adjacent to the liver. There is a small amount of free fluid deep in the pelvis. 3. Multiple dilated loops of small bowel with fluid and air suggestive of a postsurgical ileus. 4. There continues to be a prominent hiatal hernia. 5. Small bilateral pleural effusions with atelectasis in both lung bases. Chest X-Ray 04/14/18 09:40 CONCLUSION: Persistent mild vascular congestion and left basilar airspace disease. Suspected small effusions. Otherwise stable chest status post extubation. Physical Exam: GENERAL: NAD SKIN: Warm and dry. no rash HEAD: Atraumatic. Normocephalic. EYES: Pupils equal and round. No scleral icterus. No injection or drainage. ENT: No nasal bleeding or discharge. Mucous membranes pink and moist. NECK: Trachea midline. No JVD. CARDIOVASCULAR: Regular rate and rhythm. Chest wall surgical site with no e.o infection. RESPIRATORY: No accessory muscle use. Clear to auscultation. Breath sounds equal bilaterally. GASTROINTESTINAL: Abdomen soft, no tenderness to palpation, + distended JPs x [address] with cloudy serosang dc Hepatic and splenic margins not palpable. MUSCULOSKELETAL: Extremities without clubbing, some cyanosis on toes on R, L foot well perfused, refill delayed, or edema. No obvious deformities. NEUROLOGICAL: awake, fully alert speech normal appropriately unswering questions PSYCHIATRIC: calm Assessment and Plan - Plan Sepsis ongoing (fever at some point, WBC, source: Candidemia likely sec to GI issues: perforation. Large paraesophageal hernia sp perforation of stomach with diffuse contamination of abdominal cavity. SIRS/high grade leucocytosis likely from peritonitis and fungemia. sp emergent lap repair Acute VDRF ALVIN CAD severe sp CABG on 04/04 worsening leukocytosis - leukemoid reaction, WBC of 35K b/l pleural effusions, consolidations Ileus C.glabrata sepsis source intraabd less likley line No drainable fluid collections on abd/pel CT scan Recs: cont zosyn, cont micafungin fu repeat BC will repeat 2 D echo if more + bl clx Will repeat CT A/P if cont to have unexplained worsening leukocytosis If diarrhea test for Cdiff as cause for worsening leucocytosis. No CLs in place. PIVs look ok. alanna mondragon RN @ [facility]
[2018-04-15] MEDS: Micafungin Inj 150 MG in Sodium Chlor 0.9% Inj 100 ML IV.SIG SCH (13:45)
[2018-04-15] MEDS: ALPRAZolam 0.25 MG Tablet PO SCH ×2 (15:48→23:06)
[2018-04-15] MEDS: Heparin Drip 25,000 UNIT/250 ML BAG IV.CONT PRN (20:33)
--- NOTE | 2018-04-16 04:40 | XR ---
EXAM DATE: 04/16/2018 4:14 AM EST AGE/SEX: 77 years / Female INDICATIONS: Shortness of breath, possible pneumothorax. CLINICAL DATA: This is the patient's subsequent encounter. Patient reports that signs and symptoms h ave been present for 2 weeks and indicates a pain score of 8/10. MEDICAL/SURGICAL HISTORY: Chronic obstructive pulmonary disease. Congestive heart failure. My ocardial infarction. CABG. COMPARISON: [facility] [place], CHEST 1V SINGLE AP, 04/14/2018. . FINDINGS: A single AP view of the chest demonstrates no significant change. Persistent consolidation involving the left lung base. No discernible effusions. Heart is mildly enlarged. Median sternotomy wires. Naso gastric tube is been removed. No pneumothorax. Median sternotomy wires. CONCLUSION: Unchanged exam. Electronically signed by: Toby Wisdom MD 04/16/2018 4:38 AM EST
[2018-04-16 06:11] LABS: Baso # (Auto) 0.1 th/mm3 (0.0-0.2); Baso % (Auto) 0.3 % (0.0-2.0); Eos # (Auto) 0.1 th/mm3 (0.0-0.4); Eos % (Auto) 0.4 % (0.0-4.0); Hemoglobin 9.1 gm/dL (11.6-15.3); Lymph # (Auto) 1.4 th/mm3 (1.0-4.8); Lymph % (Auto) 4.9 % (9.0-44.0); Mean Corpuscular HGB Conc 33.7 % (32.0-36.0); Mean Corpuscular Hemoglobin 29.6 pg (27.0-34.0); Mean Platelet Volume 9.2 fL (7.0-11.0); Mono % (Auto) 3.5 % (0.0-8.0); Neut # (Auto) 26.4 th/mm3 (1.8-7.7); Neut % (Auto) 90.9 % (16.0-70.0); Platelet Count 268 th/mm3 (150-450); Red Blood Count 3.06 mil/mm3 (4.00-5.30)
[2018-04-16] MEDS: Levothyroxine 100 MCG Tablet PO SCH (06:20)
[2018-04-16] MEDS: Piperacil/Tazo 3.375 GM Premix 50 ML IV.SIG SCH ×4 (06:20→21:48)
[2018-04-16] MEDS: Insulin NovoLOG Aspart Correctional Sugar Inj SQ SCH ×6 (06:21→23:58)
[2018-04-16 06:25] LABS: Alanine Aminotransferase 49 U/L (10-53); Albumin 1.5 g/dL (3.4-5.0); Anion Gap 9 meq/L (5-15); Aspartate Aminotransferase 53 U/L (15-37); Blood Urea Nitrogen 17 mg/dL (7-18); Calcium 7.5 mg/dL (8.5-10.1); Carbon Dioxide 28.9 meq/L (21.0-32.0); Chloride 106 meq/L (98-107); Glomerular Filtration Rate 81 mL/min (>89); Glucose,Random 85 mg/dL (74-106); Magnesium 2.1 mg/dL (1.5-2.5); Phosphorus 3.2 mg/dL (2.5-4.9); Potassium 3.2 meq/L (3.5-5.1); Sodium 144 meq/L (136-145)
[2018-04-16 06:27] LABS: Alkaline Phosphatase 88 U/L (45-117); Total Protein 5.3 g/dL (6.4-8.2)
[2018-04-16] MEDS: Potassium Chlor 20 mEq Premix 20 MEQ/100 ML PIGGYBACK IV.SIG PRN (07:18)
[2018-04-16 08:03] LABS: Lymphocytes 6 % (9-44); Metamyelocytes 2 % (0-1)
[2018-04-16 08:04] LABS: Platelet Estimate Normal (Normal); Platelet Morphology Normal (Normal); RBC Morphology Normal (Normal)
--- NOTE | 2018-04-16 08:10 | P.PNCV ---
- Note Subjective/Hospital Course: 77/ female initially seen on 03/13/18 in [facility] office with Dr Warner, hx of progressive SOB over past few months . Known hx of CAD previous PCI's , ECHO revealed severe . Cardiac cath revealed multivessel disease PMH: Afib, Aortic stenosis, Asthma, CAD (coronary artery disease), CHF ( congestive heart failure), HLD (hyperlipidemia), HTN (hypertension) Hiatal hernia, Hypothyroid, LBBB (left bundle branch block), Mitral regurgitation, Myocardial infarct, Sleep apnea, TIA (transient ischemic attack) UTI (urinary tract infection) 04/04 pt electively admitted for surgery PREPROCEDURE DIAGNOSES 1. Severe Multi Vessel Coronary Artery Disease. 2. Severe aortic stenosis 3. Atrial fibrillation status post ablation POSTPROCEDURE DIAGNOSES 1. Severe Multi Vessel Coronary Artery Disease. 2. Severe aortic stenosis 3. Atrial fibrillation status post ablation 4. Heavily calcified ascending aorta SURGICAL PROCEDURE 1. Clampless off-pump Coronary Artery Bypass Grafting x 2 with Left Internal Mammary Artery (ZAPATA) to Left Anterior Descending (LAD), reverse saphenous vein graft to obtuse Marginal branch of the left Circumflex artery 2. Left leg Endoscopic Vein [place] 3. Left atrial appendage excision pt extubated after surgery crystalloid 2300cc, 1500cc EBL, 750cc cell saver 04/05 pt up in chair ECG with some mild global st elevation / pericarditis + rub, no pressors , stable for transfer, resume BB will need to resume coumadin when chest tubes out 04/06 chest tube dc without difficultly pt went into afib RVR last night and this am received 2nd bolus of amiodarone / po amiodarone increased will resume coumadin / this pm goal 2.5 / followed by Dr Menendez at home 04/07 pt was transferred back to CVICU yesterday became bradycardic / hypotensive / despite IV fluids calcium chloride / required Dopamine gtt / remains in afib rate now 90's , BP improved discussed with Dr Warner/ will consult cardiology regarding cardiac meds start lovenox and coumadin/ dc when INR > 2.0 dc fem line / consult PT / observe in CVICU today 04/08 Remains in atrial fibrillation with rapid ventricular response heart rate in the 120s Overnight events noted she received diltiazem, digoxin and Lopressor for heart rate with resultant hypotension requiring Dayday-Synephrine which is presently being weaned. Remains somewhat labile with her blood pressure Had echo this morning. Awaiting results Renal function worsening. Will consult nephrology. Likely secondary to hypoperfusion If ventricular function is okay, will give gentle hydration - Preoperative Diagnosis (1) Pneumoperitoneum (2) Paraesophageal hernia - Postoperative Diagnosis (1) Pneumoperitoneum (2) Paraesophageal hernia (3) Gastric ulcer, acute with perforation Date of procedure: 04/08/18 Procedure: Diagnostic laparoscopy Laparoscopic partial reduction of paraesophageal hernia Laparoscopic wedge resection of greater curvature of stomach 04/09 Operative findings noted Remains intubated and mechanically ventilated On Levophed for hemodynamic support. Weaning as tolerated Greatly appreciate Dr. Craig's input and assistance Renal function improving. Appreciate Dr. Holliday's input 04/10 remains sedated on vent 40% Fi02 SVV 17, CO 5.2/2.7 on Levo gtt at 2 mcq, in afib rate 110 creatinine improving left OANH drain 30cc/ 12 hrs, right OANH drain 10cc/ 12hr some drainage from prior chest tubes sites/ will dc prevena dressing 04/11 pt off all pressors , remains on 40% fi02 only on low dose fentanly for pain , awake follows commands, moves all extremities NA improving , creatinine improving, + hypoactive bowel sounds DC CVC line today, ok for Lovenox or Heparin SQ consult PT ROM 04/12 s/p right thoracentesis yesterday, removed 550cc bloody fluid remains on vent 40% awake , following commands, worsening leukocytosis cultures pending / ID following on Heparin gtt, rate improved 04/13 Clinically and hemodynamically stable. In atrial fibrillation with rate control. On heparin drip WBC continues to rise. Appreciate ID input and involvement Incentive spirometry and physical therapy as tolerated 04/14 Doing better. Hemodynamically stable Persistent leukocytosis. On antibiotics per ID Planned initiation of p.o. intake by general surgery 04/15 Clinically stable White count continues to rise. On antifungals and antimicrobials Remains in A. fib with rate control 04/16 Clinically better Tolerating p.o. intake WBC slightly improved Objective: Vital Signs - 24 hr 04/15/18 11:00 04/15/18 15:00 04/15/18 15:43 Temperature 98.8 F 98.1 F Pulse Rate 97 H 91 H 105 H Respiratory Rate 20 16 28 H Blood Pressure 169/95 H 156/71 H Pulse Oximetry 95 98 96 04/15/18 19:00 04/15/18 21:58 04/15/18 23:00 Temperature 98.5 F 98.8 F Pulse Rate 110 H 102 H 125 H Respiratory Rate 20 24 18 Blood Pressure 142/70 H 166/94 H Pulse Oximetry 92 L 97 97 04/16/18 01:00 04/16/18 03:00 04/16/18 04:41 Temperature 98.2 F Pulse Rate 99 H 99 H Respiratory Rate 18 24 Blood Pressure 156/73 H Pulse Oximetry 96 96 04/16/18 05:00 04/16/18 07:00 Temperature 97.7 F Pulse Rate 82 Respiratory Rate 20 Blood Pressure 136/58 L Pulse Oximetry 96 95 Labs: Laboratory Results - last 12 hr 04/16/18 04/16/18 04/16/18 05:55 05:55 05:55 WBC 29.0 H RBC 3.06 L Hgb 9.1 L Hct 27.0 L MCV 88.0 MCH 29.6 MCHC 33.7 RDW 16.0 Plt Count 268 MPV 9.2 Prelim Diff (Auto) Slide review pending Neut % (Auto) 90.9 H Lymph % (Auto) 4.[address] % (Auto) 3.5 Eos % (Auto) 0.4 Baso % (Auto) 0.3 Neut # (Auto) 26.4 H Lymph # (Auto) 1.4 [facility] # (Auto) 1.0 H Eos # (Auto) 0.1 Baso # (Auto) 0.1 WBC Differential Manual diff final Seg Neuts % (Manual) 92 H Lymphocytes % (Manual) 6 L Metamyelocytes % (Man) 2 H Abs Neuts (Manual) 27.3 H Differential Comment . Platelet Estimate Normal Platelet Morphology Normal RBC Morphology Normal APTT 48.2 H Sodium 144 Potassium 3.2 L Chloride 106 Carbon Dioxide 28.9 Anion Gap 9 BUN 17 Creatinine 0.70 Estimated GFR 81 L Random Glucose 85 Calcium 7.5 L Phosphorus 3.2 Magnesium 2.1 Total Bilirubin 0.4 AST 53 H ALT 49 Alkaline Phosphatase 88 Total Protein 5.3 L Albumin 1.5 L Result Diagrams: 04/16/18 05:55 04/16/18 05:55 - Plan (1) Severe aortic stenosis Plan: will need planned TAVR after discharge (2) Coronary artery disease involving [place] coronary artery Plan: ASA, consider low dose BB was on verapamil at home (3) Congestive heart failure (CHF) Plan: gentle diuresis (4) Atrial fibrillation Plan: s/p atrial appendage excision resume Coumadin / when cleared by general surgery (5) COPD (chronic obstructive pulmonary disease) Plan: nebs ezpap and acapella (6) S/P CABG (coronary artery bypass graft) Plan: ASA, resume home med crestor pulm toileting , nebs ezpap, acapella OOB ambulate eval for rehab at discharge (7) S/P exploratory laparotomy Plan: general surgery following (10) Respiratory failure requiring intubation Plan: vent weaning as per CCM (11) Leukocytosis Plan: hernandes -culture ABX per ID DC CVC line (12) Acute renal failure Plan: nephro following
[2018-04-16] MEDS: Docusate Sodium Liq 100 MG/10 ML UDC PO SCH ×2 (08:17→21:50)
[2018-04-16] MEDS: Polyethylene Glycol 3350 17 GM Packet PO SCH (08:17)
[2018-04-16] MEDS: Multivitamin/Minerals Therapeutic Tablet PO SCH (08:17)
--- NOTE | 2018-04-16 10:19 | P.PNCC ---
Subjective Subjective Remarks/Hospital Course: This is a 77-year-old female. Date of admission 04/04/2018. Date of consultation 04/06/2018. Patient has no history of aortic stenosis, coronary disease, hypertension, hyperlipidemia, gastroesophageal reflux disease, hypothyroidism and depression. On 04/04, patient had a two-vessel CABG ZAPATA to LAD, reverse saphenous vein graft to OM of left circumflex with left EVH and CLARA excision. Without complications. Today, patient this morning was in atrial fibrillation with rapid ventricular response. Received 150 mg IV amiodarone and started on oral amiodarone 400 mg along with 25 mg of oral metoprolol tartrate.. She became bradycardic this afternoon and we are asked to evaluate the patient. She is received 2 g of calcium chloride and is currently been started on dopamine drip. Her heart rate and blood pressure immediately improved after the infusion of calcium chloride. In reviewing laboratories, potassium magnesium are within normal limits. She does have a new leukocytosis of 19,000. She denies shortness of breath. She is more confused likely due to hypoperfusion 04/07 Patient is lying in bed in NAD. Feeling nauseas, denies any abdominal pain. 04/08 Patient was given Lopressor, Cardizem and Digoxin overnight for tachycardic became hypotensive and started on Neosyn ( current MAP 81mmHg). Renal function worse today with Cr: 2.22 from 1.76 04/09 Patient s/p Laparoscopic partial reduction of paraesophageal hernia and wedge resection of greater curvature of stomach. Remains intubated postop on Levophed 3 mics, sedated with Fentanyl and on is Precedex drip. s/p [id number] PRBC overnight Hgb 9.6 this morning from 6.8 04/10 Patient remains intubated and sedated. On Levophed 2 mics. :100.4 at 4am, renal function is improving with Cr: 1.40 from 1.99 04/11 Patient remains intubated off Levophed. On Fentanyl infusion for sedation. Renal function is improving with Cr:1.18 from 1.4. Afebrile. 04/12 Patient is awake and alert on CPAP with PS 10, PEEP:5 and FIO2 35%, s/p CT guided right thoracentesis yesterday with removal 550ml. Afebrile. On Heparin drip. 04/13 Patient was extubated yesterday on 2L oxygen, on Heparin drip. Afebrile. 04/14 No events overnight. Afebrile, WBC is rising 35 today from 30. On Heparin drip. 04/15 Patient was anxious this morning. Afebrile however WBC continue to rise 37 today. On Heparin drip. SUBJECTIVE: 04/16: White blood cell count down to 29K. Remains on heparin drip. Awake and alert and following commands. Anxiety noted. Requesting alprazolam. Objective Vital Signs / I&O: Vital Signs 04/15/18 11:00 04/15/18 15:00 04/15/18 15:43 Temperature 98.8 F 98.1 F Pulse Rate 97 H 91 H 105 H Respiratory Rate 20 16 28 H Blood Pressure 169/95 H 156/71 H Pulse Oximetry 95 98 96 04/15/18 19:00 04/15/18 21:58 04/15/18 23:00 Temperature 98.5 F 98.8 F Pulse Rate 110 H 102 H 125 H Respiratory Rate 20 24 18 Blood Pressure 142/70 H 166/94 H Pulse Oximetry 92 L 97 97 04/16/18 01:00 04/16/18 03:00 04/16/18 04:41 Temperature 98.2 F Pulse Rate 99 H 99 H Respiratory Rate 18 24 Blood Pressure 156/73 H Pulse Oximetry 96 96 04/16/18 05:00 04/16/18 07:00 04/16/18 09:11 Temperature 97.7 F Pulse Rate 82 103 H Respiratory Rate 20 24 Blood Pressure 136/58 L Pulse Oximetry 96 95 95 Intake & Output 04/15/18 04/16/18 04/16/18 18:59 06:59 18:59 Intake Total 1198 / 1198 252 / 252 100 / 100 Output Total 960 / 960 1222 / 1222 Balance 238 / 238 -970 / -970 100 / 100 Weight 93 kg Intake: IV 798 / 798 102 / 102 100 / 100 D5W Inj 1,000 ML @ 42 mls/hr IV 300 / 300 .CONT .[id number] [facility] Rx#:[id number] Heparin/D5W 25,000 U/250 mL 25, 98 / 98 52 / 52 000 unit In 250 ml @ 1,700 UNITS/HR 17 mls/hr IV.CONT TITRATE PRN Rx#:[id number] Mycamine Inj 150 MG In NS Inj 100 / 100 100 ML @ 100 mls/hr IV.SIG Q24H [facility] Rx#:[id number] Zosyn 3.375 GM Premix 50 ML @ 100 / 100 50 / 50 100 / 100 200 mls/hr IV.SIG Q6H [facility] Rx#: [id number] KCl 20 mEq Premix Inj 20 meq In 200 / 200 100 ml @ 50 mls/hr IV.SIG Q2H PRN Rx#:[id number] Oral 400 / 400 150 / 150 Output: Emesis 0 / 0 Urine Amount (Catheter) 940 / 940 1200 / 1200 Indwelling Urethral Catheter 940 / 940 1200 / 1200 Wound Drainage # 1 Right Anterior Abdomen # 2 Left Anterior Abdomen 0 / 0 2 / 2 Other: Date of Last Bowel Movement 04/15/18 04/16/18 04/16/18 # Incontinent Bowel Movements 2 Result Diagrams: 04/16/18 05:55 04/16/18 05:55 Other Results: Microbiology 04/12/18 05:11 Blood - Peripheral Aerobic Blood Culture - Preliminary No growth in 3 days 04/12/18 05:11 Blood - Peripheral Anaerobic Blood Culture - Preliminary No growth in 3 days 04/12/18 05:25 Blood - Peripheral Aerobic Blood Culture - Preliminary No growth in 3 days 04/12/18 05:25 Blood - Peripheral Anaerobic Blood Culture - Preliminary No growth in 3 days 04/15/18 00:00 Stool Stool Occult Blood (BALTAZAR) - Final Hemoccult positive 04/11/18 16:10 Fluid - Pleural fluid Gram Stain - Final 04/11/18 16:10 Fluid - Pleural fluid Body Fluid Culture - Final No growth in 72 hours (aerobically and anaerobically ) 04/08/18 14:40 Blood - Peripheral Aerobic Blood Culture - Final [place] gl[place] 04/08/18 14:40 Blood - Peripheral Anaerobic Blood Culture - Final No growth in 5 days 04/11/18 16:57 Sputum - Endotracheal Gram Stain - Final 04/11/18 16:57 Sputum - Endotracheal Sputum Culture - Final Moderate growth normal respiratory [place] 04/08/18 14:33 Blood - Peripheral Aerobic Blood Culture - Final No growth in 5 days 04/08/18 14:33 Blood - Peripheral Anaerobic Blood Culture - Final No growth in 5 days Imaging: Chest X-Ray 04/04/18 11:27 CONCLUSION: 1. Status post CABG. 2. Cardiomegaly with pulmonary vascular congestion and bibasilar densities. 3. Support lines and tubes as above. 4. Nasogastric tube likely coiled within a large hiatal hernia. Chest X-Ray 04/05/18 05:00 CONCLUSION: Bibasilar consolidation slightly worse on the right and slightly improved on the left since yesterday. Mediastinal drain and left chest tube remain in place. No pneumothorax. Chest X-Ray 04/06/18 00:00 CONCLUSION: 1. Huge hiatal hernia and the entire stomach is basically said the chest filled with gas not present previously. 2. Slight bilateral lung base atelectasis and/or infiltrate is seen, mild pulmonary edema is also suspected. Abdomen X-Ray 04/07/18 00:00 CONCLUSION: Nonspecific bowel gas pattern with scattered small and large bowel gas. Chest X-Ray 04/07/18 06:00 CONCLUSION: Resolving pulmonary edema. Small left effusion Abdomen/Bladder Ultrasound 04/08/18 00:00 CONCLUSION: Kidneys within normal limits. Right pleural effusion noted. Chest X-Ray 04/08/18 09:12 CONCLUSION: 1. Increased bilateral lower lung zone opacity indicating a combination of consolidation/atelectasis and small pleural effusions. 2. Large hiatal hernia with gas-filled stomach in the chest again seen. Abdomen/Pelvis CT 04/08/18 10:09 CONCLUSION: 1. Prominent amount of free air and free fluid in the upper abdomen and within a large hiatal hernia. A large portion of the stomach is in a hiatal hernia. Most likely etiology for the findings is a perforated gastric ulcer. Findings discussed with the patient's nurse. 2. Distended gallbladder. Chest CT 04/08/18 10:09 CONCLUSION: 1. Large hiatal hernia containing a large portion of the stomach with moderate amount of free air in the hiatal hernia and in the upper abdomen. Distal gastric wall thickening and extraluminal fluid adjacent to the distal stomach. Most likely etiology for the findings is a perforated gastric ulcer. Free fluid is also seen in the upper abdomen. 2. New bilateral lower lobe atelectasis/consolidation and small bilateral pleural effusions. Chest X-Ray 04/08/18 22:44 CONCLUSION: Satisfactory tube and line positioning. Improved aeration. Chest X-Ray 04/10/18 09:12 CONCLUSION: Bibasilar consolidation and pleural effusions. Chest Ultrasound 04/11/18 00:00 CONCLUSION: 1. Left pleural effusion and marked on the skin. Chest Ultrasound 04/11/18 00:00 CONCLUSION: 1. Right pleural effusion marked on the skin. Thoracentesis CT 04/11/18 00:00 CONCLUSION: 1. Uncomplicated CT-guided thoracentesis. Abdomen X-Ray 04/11/18 12:13 CONCLUSION: Nonspecific, nonobstructive bowel gas pattern which may represent a mild ileus or gastroenteritis. Chest X-Ray 04/11/18 16:34 CONCLUSION: Status post right thoracentesis. No evidence of pneumothorax. Abdomen/Pelvis CT 04/12/18 00:00 CONCLUSION: 1. The previously noted free air on the prior study has resolved. Patient is recently status post abdominal surgery. There are surgical drains in the upper abdomen. 2. There is a trace of fluid adjacent to the liver. There is a small amount of free fluid deep in the pelvis. 3. Multiple dilated loops of small bowel with fluid and air suggestive of a postsurgical ileus. 4. There continues to be a prominent hiatal hernia. 5. Small bilateral pleural effusions with atelectasis in both lung bases. Chest X-Ray 04/14/18 09:40 CONCLUSION: Persistent mild vascular congestion and left basilar airspace disease. Suspected small effusions. Otherwise stable chest status post extubation. Chest X-Ray 04/16/18 04:00 CONCLUSION: Unchanged exam. Objective Remarks: GENERAL: Patient is 77 yo lying in bed on nasal cannula in no acute distress SKIN: Warm and dry. HEAD: Normocephalic. EYES: No scleral icterus. No injection or drainage. NECK: Supple, trachea midline. No JVD or lymphadenopathy. CARDIOVASCULAR: Tachycardic and irregular. S1, S2 no S 4. RESPIRATORY: Breath sounds equal bilaterally. No accessory muscle use. GASTROINTESTINAL: Abdomen soft, non-tender, nondistended. MUSCULOSKELETAL: Trace nonpitting bilateral lower extremity edema Neuro: Awake and alert. Moves all 4 extremities spontaneously. Assessment and Plan - Assessment and Plan Plan: Neuro/Psych: Depressive disorder NOS History of TIA Awake and alert on paroxetine 10 mg daily for depression. CV: Postoperative CABG x2 ZAPATA to LAD, reverse saphenous vein graft to OM with left EVH and CLARA excision -Dr. Warner Atrial fibrillation Essential hypertension by history Hyperlipidemia Coronary artery disease status post PTCA left anterior descending proximal monitor HR and BP keep MAP>65mmHG On Verapamil 40mg TID, ASA 81mg daily Cardiac catheterization 417 revealed 0.48 cm area. EF 55-60%. Moderate aortic regurgitation. On rosuvastatin 10 mg daily at home. Noted allergies to atorvastatin simvastatin Cards is following- Dr. Valle On Heparin drip- Monitor PTT per protocol. Resp: VDRF Extubated 04/12 Obstructive sleep apnea Continue with oxygen keep sats> 92% Bronchodilators every 6 hours, IS CXR ordered s/p CT guided right thoracentesis 04/11 with removal 550 ml pleural fluid Exudative effusion by LDH criteria likely 2nd diuretics On furosemide 40 mg IV daily. GI: s/p Laparoscopic partial reduction of paraesophageal hernia, wedge resection of greater curvature of stomach 04/08 Diverticulosis Gastroesophageal reflux disease Hiatal hernia Start PO diet if ok with surgery, patient pulled her NGT Pantoprazole for GI prophylaxis CT abdomen/pelvis 04/12 - the previously noted free air on the prior study has resolved. Patient is recently status post abdominal surgery. There are surgical drains in the upper abdomen. Multiple dilated loops of small bowel with fluid and air suggestive of a postsurgical ileus. Prominent hiatal hernia. Docusate sodium/senna 1 tablet twice daily for hours along with polythene glycol 17 g daily KUB 04/11: Nonspecific, nonobstructive bowel gas pattern which may represent a mild ileus KUB abdomen 04/07 : Nonspecific bowel gas pattern with scattered small and large bowel gas. 04/08 CT abd/pelvis- Prominent amount of free air and free fluid in the upper abdomen and within a large hiatal hernia. A large portion of the stomach is in a hiatal hernia. Most likely etiology for the findings is a perforated gastric ulcer. 04/08 s/p Laparoscopic partial reduction of paraesophageal hernia, wedge resection of greater curvature of stomach, washout, drain placement performed. Monitor OANH drainage- Surgery- Dr. Craig. Endo: Hypothyroidism Currently on levothyroxine 100 mcg p.o. daily TSH:0.72 Sliding scale insulin with aspart insulin FEN//renal: Acute kidney injury Acute hypopotassemia Monitor renal function, I/O's, electrolytes replacement per protocol Furosemide 40mg IV daily. Received 80 mEq potassium today Renal US: No hydronephrosis Heme: Leukocytosis Normocytic anemia Chronic warfarin use Monitor CBC, Coags daily.on Heparin drip per cards s/p transfusion 2u PRBC overnight 04/09 ID: [place] glabrata fungemia 04/08 On empiric abx ( Zosyn, Micafungin) Monitor for signs of infections ( fever, WBC ) Follow up BC 04/08: [place] Seen by Optho- No evidence of endophthalmitis C-diff PCR negative ID is following MSK: Elevated BMI Osteoporosis/osteoarthritis Lumbar radiculopathy Physical therapy evaluate and treat Weight loss encouraged Access -Utilize peripheral IV. Prophylaxis -GI -pantoprazole -DVT-SCD/pharmacological prophylaxis- Heparin dip Level 2 follow-up
[2018-04-16] MEDS: Pantoprazole Inj 40 MG Vial IV.PUSH SCH ×2 (12:16→23:56)
[2018-04-16] MEDS: Micafungin Inj 150 MG in Sodium Chlor 0.9% Inj 100 ML IV.SIG SCH (12:18)
[2018-04-16] MEDS: ALPRAZolam 0.25 MG Tablet PO PRN ×2 (13:00→23:57)
--- NOTE | 2018-04-16 13:14 | P.PNGS ---
Subjective Interval history: WBC slightly improved to 29. She is tolerating fulls and ensure. C/o "panic" when she turns to the right. Her nurse and RT report sats and HR decrease when this occurs. Otherwise stable. Physical Exam Vital signs: Vital Signs 04/15/18 15:00 04/15/18 15:43 04/15/18 19:00 Temperature 98.1 F 98.5 F Pulse Rate 91 H 105 H 110 H Respiratory Rate 16 28 H 20 Blood Pressure 156/71 H 142/70 H Pulse Oximetry 98 96 92 L 04/15/18 21:58 04/15/18 23:00 04/16/18 01:00 Temperature 98.8 F Pulse Rate 102 H 125 H Respiratory Rate 24 18 Blood Pressure 166/94 H Pulse Oximetry 97 97 96 04/16/18 03:00 04/16/18 04:41 04/16/18 05:00 Temperature 98.2 F Pulse Rate 99 H 99 H Respiratory Rate 18 24 Blood Pressure 156/73 H Pulse Oximetry 96 96 04/16/18 07:00 04/16/18 09:11 04/16/18 11:00 Temperature 97.7 F 97.9 F Pulse Rate 82 103 H 86 Respiratory Rate 20 24 22 Blood Pressure 136/58 L 150/64 H Pulse Oximetry 95 95 96 Intake & Output 04/15/18 04/16/18 04/16/18 18:59 06:59 18:59 Intake Total 1198 / 1198 252 / 252 120 / 120 Output Total 960 / 960 1222 / 1222 Balance 238 / 238 -970 / -970 120 / 120 Weight 93 kg Intake: IV 798 / 798 102 / 102 120 / 120 D5W Inj 1,000 ML @ 42 mls/hr IV 300 / 300 .CONT .[id number] YASH Rx#:[id number] Heparin/D5W 25,000 U/250 mL 25, 98 / 98 52 / 52 000 unit In 250 ml @ 1,700 UNITS/HR 17 mls/hr IV.CONT TITRATE PRN Rx#:[id number] Mycamine Inj 150 MG In NS Inj 100 / 100 100 ML @ 100 mls/hr IV.SIG Q24H YASH Rx#:[id number] Zosyn 3.375 GM Premix 50 ML @ 100 / 100 50 / 50 100 / 100 200 mls/hr IV.SIG Q6H YASH Rx#: [id number] KCl 20 mEq Premix Inj 20 meq In 200 / 200 20 / 20 100 ml @ 50 mls/hr IV.SIG Q2H PRN Rx#:[id number] Oral 400 / 400 150 / 150 Output: Emesis 0 / 0 Urine Amount (Catheter) 940 / 940 1200 / 1200 Indwelling Urethral Catheter 940 / 940 1200 / 1200 Wound Drainage # 1 Right Anterior Abdomen # 2 Left Anterior Abdomen 0 / 0 2 / 2 Other: Date of Last Bowel Movement 04/15/18 04/16/18 04/16/18 # Incontinent Bowel Movements 2 Narrative: NAD Abd: soft, OANH ss on right, slightly brown clear on left min output - Urinary Catheter Management Indwelling Temp Sensing Catheter Cath placed during this visit: yes Urethral indwelling: No Reason for continuing: Hourly intake/output Insertion date: 04/04/18 Insertion time: 07:52 Indwelling Urethral Catheter Cath placed during this visit: yes Reason for continuing: Hourly intake/output Insertion date: 04/08/18 Insertion time: 16:51 Results - Labs 04/16/18 05:55 04/16/18 05:55 Laboratory Results - last 24 hr 04/15/18 04/15/18 04/15/18 13:32 17:03 17:36 WBC RBC Hgb Hct MCV MCH MCHC RDW Plt Count MPV Prelim Diff (Auto) Neut % (Auto) Lymph % (Auto) [place] % (Auto) Eos % (Auto) Baso % (Auto) Neut # (Auto) Lymph # (Auto) [place] # (Auto) Eos # (Auto) Baso # (Auto) WBC Differential Seg Neuts % (Manual) Lymphocytes % (Manual) Metamyelocytes % (Man) Abs Neuts (Manual) Differential Comment Platelet Estimate Platelet Morphology RBC Morphology APTT Sodium Potassium 3.6 Chloride Carbon Dioxide Anion Gap BUN Creatinine Estimated GFR POC Glucose 110 97 Random Glucose Calcium Phosphorus Magnesium Total Bilirubin AST ALT Alkaline Phosphatase Total Protein Albumin 04/15/18 04/16/18 04/16/18 19:51 05:55 05:55 WBC 29.0 H RBC 3.06 L Hgb 9.1 L Hct 27.0 L MCV 88.0 MCH 29.6 MCHC 33.7 RDW 16.0 Plt Count 268 MPV 9.2 Prelim Diff (Auto) Slide review pending Neut % (Auto) 90.9 H Lymph % (Auto) 4.9 L [place] % (Auto) 3.5 Eos % (Auto) 0.4 Baso % (Auto) 0.3 Neut # (Auto) 26.4 H Lymph # (Auto) 1.4 [place] # (Auto) 1.0 H Eos # (Auto) 0.1 Baso # (Auto) 0.1 WBC Differential Manual diff final Seg Neuts % (Manual) 92 H Lymphocytes % (Manual) 6 L Metamyelocytes % (Man) 2 H Abs Neuts (Manual) 27.3 H Differential Comment . Platelet Estimate Normal Platelet Morphology Normal RBC Morphology Normal APTT 48.2 H Sodium Potassium Chloride Carbon Dioxide Anion Gap BUN Creatinine Estimated GFR POC Glucose 112 H Random Glucose Calcium Phosphorus Magnesium Total Bilirubin AST ALT Alkaline Phosphatase Total Protein Albumin 04/16/18 04/16/18 04/16/18 05:55 08:05 12:12 WBC RBC Hgb Hct MCV MCH MCHC RDW Plt Count MPV Prelim Diff (Auto) Neut % (Auto) Lymph % (Auto) [place] % (Auto) Eos % (Auto) Baso % (Auto) Neut # (Auto) Lymph # (Auto) [place] # (Auto) Eos # (Auto) Baso # (Auto) WBC Differential Seg Neuts % (Manual) Lymphocytes % (Manual) Metamyelocytes % (Man) Abs Neuts (Manual) Differential Comment Platelet Estimate Platelet Morphology RBC Morphology APTT Sodium 144 Potassium 3.2 L Chloride 106 Carbon Dioxide 28.9 Anion Gap 9 BUN 17 Creatinine 0.70 Estimated GFR 81 L POC Glucose 73 95 Random Glucose 85 Calcium 7.5 L Phosphorus 3.2 Magnesium 2.1 Total Bilirubin 0.4 AST 53 H ALT 49 Alkaline Phosphatase 88 Total Protein 5.3 L Albumin 1.5 L - Imaging Imaging: ITS Impressions Abdomen/Bladder Ultrasound 04/08/18 00:00 CONCLUSION: Kidneys within normal limits. Right pleural effusion noted. Chest CT 04/08/18 10:09 CONCLUSION: 1. Large hiatal hernia containing a large portion of the stomach with moderate amount of free air in the hiatal hernia and in the upper abdomen. Distal gastric wall thickening and extraluminal fluid adjacent to the distal stomach. Most likely etiology for the findings is a perforated gastric ulcer. Free fluid is also seen in the upper abdomen. 2. New bilateral lower lobe atelectasis/consolidation and small bilateral pleural effusions. Chest Ultrasound 04/11/18 00:00 CONCLUSION: 1. Left pleural effusion and marked on the skin. Thoracentesis CT 04/11/18 00:00 CONCLUSION: 1. Uncomplicated CT-guided thoracentesis. Abdomen X-Ray 04/11/18 12:13 CONCLUSION: Nonspecific, nonobstructive bowel gas pattern which may represent a mild ileus or gastroenteritis. Abdomen/Pelvis CT 04/12/18 00:00 CONCLUSION: 1. The previously noted free air on the prior study has resolved. Patient is recently status post abdominal surgery. There are surgical drains in the upper abdomen. 2. There is a trace of fluid adjacent to the liver. There is a small amount of free fluid deep in the pelvis. 3. Multiple dilated loops of small bowel with fluid and air suggestive of a postsurgical ileus. 4. There continues to be a prominent hiatal hernia. 5. Small bilateral pleural effusions with atelectasis in both lung bases. Chest X-Ray 04/16/18 04:00 CONCLUSION: Unchanged exam. Assessment and Plan - Plan POD 7 s/p lap wedge resection of stomach and partial reduction of large hiatal hernia for multiple perforated ulcers of greater curve. WBC improving. Ab fulls. Soft diet. Cont OANH drains. Ok for lovenox rather than hep gtt if desired. Continue to monitor wbc.
--- NOTE | 2018-04-16 23:29 | CT ---
EXAM DATE: 04/16/2018 11:02 PM EST AGE/SEX: 77 years / Female INDICATIONS: Chest pain on inspiration. CLINICAL DATA: This is the patient's subsequent encounter. Patient reports that signs and symptoms h ave been present for 4 - 6 days and indicates a pain score of 6/10. MEDICAL/SURGICAL HISTORY: Congestive heart failure. Chronic obstructive pulmonary disease. Hypert ension. Asthma CABG. RADIATION DOSE: 17.44 CTDI (mGy) COMPARISON: [facility] [place], CT ABDOMEN & PELVIS W CONTRAST, 04/12/2018. . TECHNIQUE: Multiple contiguous axial images were obtained through the chest without contrast. Image s were obtained in suspended respiration using multiple row detector helical technique. Using automa yann exposure control and adjustment of the mA and/or kV according to patient size, radiation dose was kept as low as reasonably achievable to obtain optimal diagnostic quality images. DICOM format imag e data is available electronically for review and comparison. FINDINGS: Lungs: Moderate-sized areas of pulmonary consolidation/atelectasis of the lower lobes bilaterally. S carring at the lung apices. Mediastinum: Coronary artery calcification. Trace pericardial effusion. Diffuse aortic calcification . Aortic diameter within normal limits. Moderate-sized hiatal hernia. Pleurae: Small moderate-sized left pleural effusion. Small right pleural effusion. Axillae: Unremarkable. Bony Structures: Unremarkable. Miscellaneous: Surgical drains are again seen in the left upper quadrant of the abdomen adjacent to the stomach. Elongated fluid density extending from the lateral margin of the stomach in the left upp er quadrant measures 4.0 x 2.2 cm. This is slightly more prominent in size than on the prior study of 04/12/2018. CONCLUSION: 1. Bilateral lower lobe consolidation/atelectasis and left greater than right pleural effusions. 2. Prominent hiatal hernia again noted. 3. Postsurgical findings in the region of the hiatal hernia and upper abdomen with surgical drains a gain in place. Elongated 4 x 2 cm fluid density in the left upper quadrant abutting the lateral eliane n of the stomach, nonspecific. Electronically signed by: Stuart Clifton MD 04/16/2018 11:27 PM EST
[2018-04-16] MEDS: Heparin Drip 25,000 UNIT/250 ML BAG IV.CONT PRN (23:59)
[2018-04-17] MEDS: Insulin NovoLOG Aspart Correctional Sugar Inj SQ SCH ×5 (04:43→20:35)
[2018-04-17] MEDS: Piperacil/Tazo 3.375 GM Premix 50 ML IV.SIG SCH ×4 (04:43→21:26)
--- NOTE | 2018-04-17 05:51 | XR ---
EXAM DATE: 04/17/2018 5:21 AM EST AGE/SEX: 77 years / Female INDICATIONS: Shortness of breath, possible pulmonary disease. CLINICAL DATA: This is the patient's subsequent encounter. Patient reports that signs and symptoms h ave been present for 2 weeks and indicates a pain score of 6/10. MEDICAL/SURGICAL HISTORY: Chronic obstructive pulmonary disease. Congestive heart failure. My ocardial infarction. CABG. COMPARISON: [facility] – [place], CHEST 1V SINGLE AP, 04/16/2018. . FINDINGS: Single AP view of the chest. Median sternotomy wires are present. Cardiac silhouette is enlarged but unchanged. Left lower lobe consolidation versus atelectasis is again seen. Mild hazy bilateral lower lung zone predominant opacity unchanged. CONCLUSION: No significant interval change. Persistent left lower lobe consolidation versus atelectasis and bilat eral hazy pulmonary opacity with lower lung zone predominance. Electronically signed by: Stuart Clifton MD 04/17/2018 5:49 AM EST
[2018-04-17] MEDS: Levothyroxine 100 MCG Tablet PO SCH (06:31)
[2018-04-17 06:57] LABS: Baso % (Auto) 0.1 % (0.0-2.0); Eos # (Auto) 0.1 th/mm3 (0.0-0.4); Eos % (Auto) 0.6 % (0.0-4.0); Hematocrit 28.5 % (35.0-46.0); Hemoglobin 9.4 gm/dL (11.6-15.3); Lymph # (Auto) 1.2 th/mm3 (1.0-4.8); Lymph % (Auto) 4.7 % (9.0-44.0); Mean Corpuscular HGB Conc 33.1 % (32.0-36.0); Mean Corpuscular Hemoglobin 29.6 pg (27.0-34.0); Mean Corpuscular Volume 89.4 fL (80.0-100.0); Mean Platelet Volume 9.5 fL (7.0-11.0); Mono # (Auto) 0.9 th/mm3 (0.0-0.9); Mono % (Auto) 3.5 % (0.0-8.0); Neut # (Auto) 22.7 th/mm3 (1.8-7.7); Neut % (Auto) 91.1 % (16.0-70.0); Platelet Count 354 th/mm3 (150-450); Red Blood Count 3.19 mil/mm3 (4.00-5.30); White Blood Count 24.9 th/mm3 (4.0-11.0)
[2018-04-17] MEDS: Multivitamin/Minerals Therapeutic Tablet PO SCH (08:46)
[2018-04-17] MEDS: Polyethylene Glycol 3350 17 GM Packet PO SCH (08:48)
[2018-04-17] MEDS: Docusate Sodium Liq 100 MG/10 ML UDC PO SCH ×2 (08:48→21:11)
--- NOTE | 2018-04-17 10:08 | P.PNCC ---
Subjective Subjective Remarks/Hospital Course: This is a 77-year-old female. Date of admission 04/04/2018. Date of consultation 04/06/2018. Patient has no history of aortic stenosis, coronary disease, hypertension, hyperlipidemia, gastroesophageal reflux disease, hypothyroidism and depression. On 04/04, patient had a two-vessel CABG ZAPATA to LAD, reverse saphenous vein graft to OM of left circumflex with left EVH and CLARA excision. Without complications. Today, patient this morning was in atrial fibrillation with rapid ventricular response. Received 150 mg IV amiodarone and started on oral amiodarone 400 mg along with 25 mg of oral metoprolol tartrate.. She became bradycardic this afternoon and we are asked to evaluate the patient. She is received 2 g of calcium chloride and is currently been started on dopamine drip. Her heart rate and blood pressure immediately improved after the infusion of calcium chloride. In reviewing laboratories, potassium magnesium are within normal limits. She does have a new leukocytosis of 19,000. She denies shortness of breath. She is more confused likely due to hypoperfusion 04/07 Patient is lying in bed in NAD. Feeling nauseas, denies any abdominal pain. 04/08 Patient was given Lopressor, Cardizem and Digoxin overnight for tachycardic became hypotensive and started on Neosyn ( current MAP 81mmHg). Renal function worse today with Cr: 2.22 from 1.76 04/09 Patient s/p Laparoscopic partial reduction of paraesophageal hernia and wedge resection of greater curvature of stomach. Remains intubated postop on Levophed 3 mics, sedated with Fentanyl and on is Precedex drip. s/p [id number] PRBC overnight Hgb 9.6 this morning from 6.8 04/10 Patient remains intubated and sedated. On Levophed 2 mics. :100.4 at 4am, renal function is improving with Cr: 1.40 from 1.99 04/11 Patient remains intubated off Levophed. On Fentanyl infusion for sedation. Renal function is improving with Cr:1.18 from 1.4. Afebrile. 04/12 Patient is awake and alert on CPAP with PS 10, PEEP:5 and FIO2 35%, s/p CT guided right thoracentesis yesterday with removal 550ml. Afebrile. On Heparin drip. 04/13 Patient was extubated yesterday on 2L oxygen, on Heparin drip. Afebrile. 04/14 No events overnight. Afebrile, WBC is rising 35 today from 30. On Heparin drip. 04/15 Patient was anxious this morning. Afebrile however WBC continue to rise 37 today. On Heparin drip. SUBJECTIVE: 04/16: White blood cell count down to 29K. Remains on heparin drip. Awake and alert and following commands. Anxiety noted. Requesting alprazolam. 04/17 no events overnight. WBC continue to trend down 24 today. Afebrile. On Heparin drip. On 3L oxygen. Objective Vital Signs / I&O: Vital Signs 04/16/18 11:00 04/16/18 13:00 04/16/18 15:00 Temperature 97.9 F 98 F Pulse Rate 86 83 Respiratory Rate 22 16 Blood Pressure 150/64 H 136/53 L Pulse Oximetry 96 99 99 04/16/18 16:50 04/16/18 17:00 04/16/18 19:00 Temperature 98.3 F Pulse Rate 83 91 H Respiratory Rate 20 22 Blood Pressure 151/81 H Pulse Oximetry 99 99 04/16/18 21:38 04/16/18 23:00 04/17/18 01:14 Temperature 97.9 F Pulse Rate 83 101 H 99 H Respiratory Rate 22 23 18 Blood Pressure 142/75 H Pulse Oximetry 97 97 04/17/18 01:16 04/17/18 03:00 04/17/18 03:54 Temperature 98.3 F Pulse Rate 95 H 89 Respiratory Rate 18 22 Blood Pressure 142/57 H Pulse Oximetry 98 98 04/17/18 05:00 Temperature Pulse Rate Respiratory Rate Blood Pressure Pulse Oximetry 98 Intake & Output 04/16/18 04/17/18 04/17/18 18:59 06:59 18:59 Intake Total 1090 / 1090 610 / 610 Output Total 685 / 685 815 / 815 Balance 405 / 405 -205 / -205 Weight 95 kg Intake: IV 490 / 490 130 / 130 Heparin/D5W 25,000 U/250 mL 25, 220 / 220 30 / 30 000 unit In 250 ml @ 1,700 UNITS/HR 17 mls/hr IV.CONT TITRATE PRN Rx#:[id number] Mycamine Inj 150 MG In NS Inj 100 / 100 100 ML @ 100 mls/hr IV.SIG Q24H YASH Rx#:[id number] Zosyn 3.375 GM Premix 50 ML @ 150 / 150 100 / 100 200 mls/hr IV.SIG Q6H YASH Rx#: [id number] KCl 20 mEq Premix Inj 20 meq In 20 / 20 100 ml @ 50 mls/hr IV.SIG Q2H PRN Rx#:[id number] Oral 600 / 600 480 / 480 Output: Urine Amount (Catheter) 665 / 665 800 / 800 Indwelling Urethral Catheter 665 / 665 800 / 800 Wound Drainage 15 / 15 # 1 Right Anterior Abdomen 10 # 2 Left Anterior Abdomen 0 / 0 5 / 5 Other: Date of Last Bowel Movement 04/16/18 04/17/18 # Bowel Movements 2 # Incontinent Bowel Movements 2 Result Diagrams: 04/17/18 05:57 04/16/18 19:05 Other Results: Laboratory Results - last 12 hr 04/16/18 04/17/18 04/17/18 23:48 04:41 05:57 WBC 24.9 H RBC 3.19 L Hgb 9.4 L Hct 28.5 L MCV 89.4 MCH 29.6 MCHC 33.1 RDW 16.0 Plt Count 354 D MPV 9.5 Prelim Diff (Auto) Slide review pending Neut % (Auto) 91.1 H Lymph % (Auto) 4.7 L [place] % (Auto) 3.5 Eos % (Auto) 0.6 Baso % (Auto) 0.1 Neut # (Auto) 22.7 H Lymph # (Auto) 1.2 [place] # (Auto) 0.9 Eos # (Auto) 0.1 Baso # (Auto) 0.0 Differential Comment . POC Glucose 102 100 04/17/18 08:45 WBC RBC Hgb Hct MCV MCH MCHC RDW Plt Count MPV Prelim Diff (Auto) Neut % (Auto) Lymph % (Auto) [place] % (Auto) Eos % (Auto) Baso % (Auto) Neut # (Auto) Lymph # (Auto) [place] # (Auto) Eos # (Auto) Baso # (Auto) Differential Comment POC Glucose 152 H Imaging: Abdomen/Bladder Ultrasound 04/08/18 00:00 CONCLUSION: Kidneys within normal limits. Right pleural effusion noted. Chest Ultrasound 04/11/18 00:00 CONCLUSION: 1. Left pleural effusion and marked on the skin. Thoracentesis CT 04/11/18 00:00 CONCLUSION: 1. Uncomplicated CT-guided thoracentesis. Abdomen X-Ray 04/11/18 12:13 CONCLUSION: Nonspecific, nonobstructive bowel gas pattern which may represent a mild ileus or gastroenteritis. Abdomen/Pelvis CT 04/12/18 00:00 CONCLUSION: 1. The previously noted free air on the prior study has resolved. Patient is recently status post abdominal surgery. There are surgical drains in the upper abdomen. 2. There is a trace of fluid adjacent to the liver. There is a small amount of free fluid deep in the pelvis. 3. Multiple dilated loops of small bowel with fluid and air suggestive of a postsurgical ileus. 4. There continues to be a prominent hiatal hernia. 5. Small bilateral pleural effusions with atelectasis in both lung bases. Chest CT 04/16/18 00:00 CONCLUSION: 1. Bilateral lower lobe consolidation/atelectasis and left greater than right pleural effusions. 2. Prominent hiatal hernia again noted. 3. Postsurgical findings in the region of the hiatal hernia and upper abdomen with surgical drains again in place. Elongated 4 x 2 cm fluid density in the left upper quadrant abutting the lateral margin of the stomach, nonspecific. Chest X-Ray 04/17/18 06:00 CONCLUSION: No significant interval change. Persistent left lower lobe consolidation versus atelectasis and bilateral hazy pulmonary opacity with lower lung zone predominance. Objective Remarks: GENERAL: Patient is 77 yo lying in bed on nasal cannula in no acute distress SKIN: Warm and dry. HEAD: Normocephalic. EYES: No scleral icterus. No injection or drainage. NECK: Supple, trachea midline. No JVD or lymphadenopathy. CARDIOVASCULAR: Tachycardic and irregular. S1, S2 no S 4. RESPIRATORY: Breath sounds equal bilaterally. No accessory muscle use. GASTROINTESTINAL: Abdomen soft, non-tender, nondistended. MUSCULOSKELETAL: Trace nonpitting bilateral lower extremity edema Neuro: Awake and alert. Moves all 4 extremities spontaneously. Assessment and Plan - Assessment and Plan Plan: Neuro/Psych: Depressive disorder NOS History of TIA Awake and alert on paroxetine 10 mg daily for depression. CV: Postoperative CABG x2 ZAPATA to LAD, reverse saphenous vein graft to OM with left EVH and CLARA excision -Dr. Warner Atrial fibrillation Essential hypertension by history Hyperlipidemia Coronary artery disease status post PTCA left anterior descending proximal monitor HR and BP keep MAP>65mmHG On Verapamil 40mg TID, ASA 81mg daily Cardiac catheterization 417 revealed 0.48 cm area. EF 55-60%. Moderate aortic regurgitation. On rosuvastatin 10 mg daily at home. Noted allergies to atorvastatin simvastatin Cards is following- Dr. Valle On Heparin drip- Monitor PTT per protocol. Resp: VDRF Extubated 04/12 Obstructive sleep apnea Continue with oxygen keep sats> 92% Bronchodilators every 6 hours, IS CXR today- No significant interval change. Persistent left lower lobe consolidation versus atelectasis and bilateral hazy pulmonary opacity with lower lung zone predominance. s/p CT guided right thoracentesis 04/11 with removal 550 ml pleural fluid Exudative effusion by LDH criteria likely 2nd diuretics On furosemide 40 mg IV daily. GI: s/p Laparoscopic partial reduction of paraesophageal hernia, wedge resection of greater curvature of stomach 04/08 Diverticulosis Gastroesophageal reflux disease Hiatal hernia On PO cardiac diet Pantoprazole for GI prophylaxis CT abdomen/pelvis 04/12 - the previously noted free air on the prior study has resolved. Patient is recently status post abdominal surgery. There are surgical drains in the upper abdomen. Multiple dilated loops of small bowel with fluid and air suggestive of a postsurgical ileus. Prominent hiatal hernia. Docusate sodium/senna 1 tablet twice daily for hours along with polythene glycol 17 g daily KUB 04/11: Nonspecific, nonobstructive bowel gas pattern which may represent a mild ileus KUB abdomen 04/07 : Nonspecific bowel gas pattern with scattered small and large bowel gas. 04/08 CT abd/pelvis- Prominent amount of free air and free fluid in the upper abdomen and within a large hiatal hernia. A large portion of the stomach is in a hiatal hernia. Most likely etiology for the findings is a perforated gastric ulcer. 04/08 s/p Laparoscopic partial reduction of paraesophageal hernia, wedge resection of greater curvature of stomach, washout, drain placement performed. Monitor OANH drainage- Surgery- Dr. Craig. Endo: Hypothyroidism Currently on levothyroxine 100 mcg p.o. daily TSH:0.72 Sliding scale insulin with aspart insulin FEN//renal: Acute kidney injury Acute hypopotassemia Monitor renal function, I/O's, electrolytes replacement per protocol Furosemide 40mg IV daily Renal US: No hydronephrosis Heme: Leukocytosis Normocytic anemia Chronic warfarin use Monitor CBC, Coags daily.on Heparin drip per cards s/p transfusion 2u PRBC overnight 04/09 ID: Rocío glabrata fungemia 04/08 On empiric abx ( Zosyn, Micafungin) Monitor for signs of infections ( fever, WBC ) WBC is trending down. Follow up BC 04/08: [place] Glabrata Seen by Optho- No evidence of endophthalmitis C-diff PCR negative ID is following MSK: Elevated BMI Osteoporosis/osteoarthritis Lumbar radiculopathy Physical therapy evaluate and treat Weight loss encouraged Access -Utilize peripheral IV. Prophylaxis -GI -pantoprazole -DVT-SCD/pharmacological prophylaxis- Heparin dip Follow up o labs Level 2 follow-up
[2018-04-17 11:56] LABS: Eosinophils 1 % (0-4); Lymphocytes 2 % (9-44); Monocytes 5 % (0-8); Plasma Cells 1 % (0-0)
[2018-04-17 11:57] LABS: Platelet Estimate Normal (Normal); Platelet Morphology Normal (Normal); Toxic Granulation 3+
--- NOTE | 2018-04-17 12:07 | P.PNCV ---
- Note Subjective/Hospital Course: 77/ female initially seen on 03/13/18 in [facility] office with Dr Warner, hx of progressive SOB over past few months . Known hx of CAD previous PCI's , ECHO revealed severe . Cardiac cath revealed multivessel disease PMH: Afib, Aortic stenosis, Asthma, CAD (coronary artery disease), CHF ( congestive heart failure), HLD (hyperlipidemia), HTN (hypertension) Hiatal hernia, Hypothyroid, LBBB (left bundle branch block), Mitral regurgitation, Myocardial infarct, Sleep apnea, TIA (transient ischemic attack) UTI (urinary tract infection) 04/04 pt electively admitted for surgery PREPROCEDURE DIAGNOSES 1. Severe Multi Vessel Coronary Artery Disease. 2. Severe aortic stenosis 3. Atrial fibrillation status post ablation POSTPROCEDURE DIAGNOSES 1. Severe Multi Vessel Coronary Artery Disease. 2. Severe aortic stenosis 3. Atrial fibrillation status post ablation 4. Heavily calcified ascending aorta SURGICAL PROCEDURE 1. Clampless off-pump Coronary Artery Bypass Grafting x 2 with Left Internal Mammary Artery (ZAPATA) to Left Anterior Descending (LAD), reverse saphenous vein graft to obtuse Marginal branch of the left Circumflex artery 2. Left leg Endoscopic Vein [place] 3. Left atrial appendage excision pt extubated after surgery crystalloid 2300cc, 1500cc EBL, 750cc cell saver 04/05 pt up in chair ECG with some mild global st elevation / pericarditis + rub, no pressors , stable for transfer, resume BB will need to resume coumadin when chest tubes out 04/06 chest tube dc without difficultly pt went into afib RVR last night and this am received 2nd bolus of amiodarone / po amiodarone increased will resume coumadin / this pm goal 2.5 / followed by Dr Menendez at home 04/07 pt was transferred back to CVICU yesterday became bradycardic / hypotensive / despite IV fluids calcium chloride / required Dopamine gtt / remains in afib rate now 90's , BP improved discussed with Dr Warner/ will consult cardiology regarding cardiac meds start lovenox and coumadin/ dc when INR > 2.0 dc fem line / consult PT / observe in CVICU today 04/08 Remains in atrial fibrillation with rapid ventricular response heart rate in the 120s Overnight events noted she received diltiazem, digoxin and Lopressor for heart rate with resultant hypotension requiring Dayday-Synephrine which is presently being weaned. Remains somewhat labile with her blood pressure Had echo this morning. Awaiting results Renal function worsening. Will consult nephrology. Likely secondary to hypoperfusion If ventricular function is okay, will give gentle hydration - Preoperative Diagnosis (1) Pneumoperitoneum (2) Paraesophageal hernia - Postoperative Diagnosis (1) Pneumoperitoneum (2) Paraesophageal hernia (3) Gastric ulcer, acute with perforation Date of procedure: 04/08/18 Procedure: Diagnostic laparoscopy Laparoscopic partial reduction of paraesophageal hernia Laparoscopic wedge resection of greater curvature of stomach 04/09 Operative findings noted Remains intubated and mechanically ventilated On Levophed for hemodynamic support. Weaning as tolerated Greatly appreciate Dr. Craig's input and assistance Renal function improving. Appreciate Dr. Holliday's input 04/10 remains sedated on vent 40% Fi02 SVV 17, CO 5.2/2.7 on Levo gtt at 2 mcq, in afib rate 110 creatinine improving left OANH drain 30cc/ 12 hrs, right OANH drain 10cc/ 12hr some drainage from prior chest tubes sites/ will dc prevena dressing 04/11 pt off all pressors , remains on 40% fi02 only on low dose fentanly for pain , awake follows commands, moves all extremities NA improving , creatinine improving, + hypoactive bowel sounds DC CVC line today, ok for Lovenox or Heparin SQ consult PT ROM 04/12 s/p right thoracentesis yesterday, removed 550cc bloody fluid remains on vent 40% awake , following commands, worsening leukocytosis cultures pending / ID following on Heparin gtt, rate improved 04/13 Clinically and hemodynamically stable. In atrial fibrillation with rate control. On heparin drip WBC continues to rise. Appreciate ID input and involvement Incentive spirometry and physical therapy as tolerated 04/14 Doing better. Hemodynamically stable Persistent leukocytosis. On antibiotics per ID Planned initiation of p.o. intake by general surgery 04/15 Clinically stable White count continues to rise. On antifungals and antimicrobials Remains in A. fib with rate control 04/16 Clinically better Tolerating p.o. intake WBC slightly improved 04/17 remains very weak , requires 2 person assit no pressors WBC count improving Afib with rate controlled/ on Heparin gtt/ ok for lovenox instead of Heparin per [facility] if needed eval for LTAC by case management tolerating full liquid diet Objective: Vital Signs - 24 hr 04/16/18 13:00 04/16/18 15:00 04/16/18 16:50 Temperature 98 F Pulse Rate 83 83 Respiratory Rate 16 20 Blood Pressure 136/53 L Pulse Oximetry 99 99 04/16/18 17:00 04/16/18 19:00 04/16/18 21:38 Temperature 98.3 F Pulse Rate 91 H 83 Respiratory Rate 22 22 Blood Pressure 151/81 H Pulse Oximetry 99 99 97 04/16/18 23:00 04/17/18 01:14 04/17/18 01:16 Temperature 97.9 F Pulse Rate 101 H 99 H Respiratory Rate 23 18 Blood Pressure 142/75 H Pulse Oximetry 97 98 04/17/18 03:00 04/17/18 03:54 04/17/18 05:00 Temperature 98.3 F Pulse Rate 95 H 89 Respiratory Rate 18 22 Blood Pressure 142/57 H Pulse Oximetry 98 98 04/17/18 11:34 Temperature Pulse Rate 75 Respiratory Rate 20 Blood Pressure Pulse Oximetry 98 GENERAL: awake and alert, very weak SKIN: Warm and dry. incision intact to chest HEAD: Atraumatic. Normocephalic. EYES: Pupils equal and round. No scleral icterus. No injection or drainage. ENT: No nasal bleeding or discharge. Mucous membranes pink and moist. NECK: Trachea midline. No JVD. CARDIOVASCULAR: irregular rate and rhythm. general edema , some mild duskiness to finger tips left hand RESPIRATORY: No accessory muscle use. Clear to auscultation. Breath sounds equal bilaterally. few scattered rhonchi GASTROINTESTINAL: Abdomen soft, non-tender, nondistended. OANH drains x [address] MUSCULOSKELETAL: Extremities without clubbing, cyanosis, + edema. No obvious deformities. NEUROLOGICAL: Awake and alert. No obvious cranial nerve deficits. Motor grossly within normal limits. general weakness Normal speech. PSYCHIATRIC: Appropriate mood and affect; insight and judgment normal. Labs: Laboratory Results - last 12 hr 04/17/18 04/17/18 04/17/18 04:41 05:57 08:45 WBC RBC Hgb Hct MCV MCH MCHC RDW Plt Count MPV Prelim Diff (Auto) Neut % (Auto) Lymph % (Auto) [place] % (Auto) Eos % (Auto) Baso % (Auto) Neut # (Auto) Lymph # (Auto) [place] # (Auto) Eos # (Auto) Baso # (Auto) WBC Differential Seg Neuts % (Manual) Band Neuts % (Manual) Lymphocytes % (Manual) Monocytes % (Manual) Eosinophils % (Manual) Plasma Cell % (Manual) Abs Neuts (Manual) Differential Comment . Toxic Granulation Platelet Estimate Platelet Morphology POC Glucose 100 152 H 04/17/18 04/17/18 10:42 11:51 WBC 24.9 H RBC 3.19 L Hgb 9.4 L Hct 28.5 L MCV 89.4 MCH 29.6 MCHC 33.1 RDW 16.0 Plt Count 354 D MPV 9.5 Prelim Diff (Auto) Slide review pending Neut % (Auto) 91.1 H Lymph % (Auto) 4.7 L [place] % (Auto) 3.5 Eos % (Auto) 0.6 Baso % (Auto) 0.1 Neut # (Auto) 22.7 H Lymph # (Auto) 1.2 [place] # (Auto) 0.9 Eos # (Auto) 0.1 Baso # (Auto) 0.0 WBC Differential Manual diff final Seg Neuts % (Manual) 88 H Band Neuts % (Manual) 3 Lymphocytes % (Manual) 2 L Monocytes % (Manual) 5 Eosinophils % (Manual) 1 Plasma Cell % (Manual) 1 H Abs Neuts (Manual) 22.7 H Differential Comment Toxic Granulation 3+ H Platelet Estimate Normal Platelet Morphology Normal POC Glucose 121 H Result Diagrams: 04/17/18 10:42 04/16/18 19:05 Telemetry: afib rate controlled - Plan (1) Severe aortic stenosis Plan: will need planned TAVR after discharge (2) Coronary artery disease involving [place] coronary artery Plan: ASA, consider low dose BB was on verapamil at home (3) Congestive heart failure (CHF) Plan: gentle diuresis (4) Atrial fibrillation Plan: s/p atrial appendage excision resume Coumadin / when cleared by general surgery on heparin gtt and verapamil (5) COPD (chronic obstructive pulmonary disease) Plan: nebs ezpap and acapella (6) S/P CABG (coronary artery bypass graft) Plan: ASA, resume home med crestor pulm toileting , nebs ezpap, acapella OOB ambulate eval for LTAC at discharge eval for transfer to stepdown, when cleared by [facility], will need to be close to nurses station vs transfer to LTAC from CVICU (7) S/P exploratory laparotomy Plan: general surgery following (10) Respiratory failure requiring intubation Plan: vent weaning as per CCM / resolved (11) Leukocytosis Plan: hernandes -culture ABX per ID DC CVC line (12) Acute renal failure Plan: nephro following (14) Fungemia Plan: on micafungin ID following
[2018-04-17 12:08] LABS: Alanine Aminotransferase 51 U/L (10-53); Albumin 1.7 g/dL (3.4-5.0); Alkaline Phosphatase 93 U/L (45-117); Anion Gap 7 meq/L (5-15); Aspartate Aminotransferase 61 U/L (15-37); Blood Urea Nitrogen 16 mg/dL (7-18); Calcium 7.7 mg/dL (8.5-10.1); Carbon Dioxide 32.7 meq/L (21.0-32.0); Chloride 105 meq/L (98-107); Glomerular Filtration Rate 80 mL/min (>89); Glucose,Random 107 mg/dL (74-106); Magnesium 2.2 mg/dL (1.5-2.5); Phosphorus 2.8 mg/dL (2.5-4.9); Potassium 3.1 meq/L (3.5-5.1); Sodium 145 meq/L (136-145); Total Protein 5.7 g/dL (6.4-8.2)
--- NOTE | 2018-04-17 12:40 | P.PNGS ---
Subjective Interval history: Ms. Gee denies abdominal pain. She does not have much of an appetite. WBC has decreased to 24. Physical Exam Vital signs: Vital Signs 04/16/18 13:00 04/16/18 15:00 04/16/18 16:50 Temperature 98 F Pulse Rate 83 83 Respiratory Rate 16 20 Blood Pressure 136/53 L Pulse Oximetry 99 99 04/16/18 17:00 04/16/18 19:00 04/16/18 21:38 Temperature 98.3 F Pulse Rate 91 H 83 Respiratory Rate 22 22 Blood Pressure 151/81 H Pulse Oximetry 99 99 97 04/16/18 23:00 04/17/18 01:14 04/17/18 01:16 Temperature 97.9 F Pulse Rate 101 H 99 H Respiratory Rate 23 18 Blood Pressure 142/75 H Pulse Oximetry 97 98 04/17/18 03:00 04/17/18 03:54 04/17/18 05:00 Temperature 98.3 F Pulse Rate 95 H 89 Respiratory Rate 18 22 Blood Pressure 142/57 H Pulse Oximetry 98 98 04/17/18 11:34 Temperature Pulse Rate 75 Respiratory Rate 20 Blood Pressure Pulse Oximetry 98 Intake & Output 04/16/18 04/17/18 04/17/18 18:59 06:59 18:59 Intake Total 1090 / 1090 610 / 610 Output Total 685 / 685 815 / 815 Balance 405 / 405 -205 / -205 Weight 95 kg Intake: IV 490 / 490 130 / 130 Heparin/D5W 25,000 U/250 mL 25, 220 / 220 30 / 30 000 unit In 250 ml @ 1,700 UNITS/HR 17 mls/hr IV.CONT TITRATE PRN Rx#:[id number] Mycamine Inj 150 MG In NS Inj 100 / 100 100 ML @ 100 mls/hr IV.SIG Q24H YASH Rx#:[id number] Zosyn 3.375 GM Premix 50 ML @ 150 / 150 100 / 100 200 mls/hr IV.SIG Q6H YASH Rx#: [id number] KCl 20 mEq Premix Inj 20 meq In 20 / 20 100 ml @ 50 mls/hr IV.SIG Q2H PRN Rx#:[id number] Oral 600 / 600 480 / 480 Output: Urine Amount (Catheter) 665 / 665 800 / 800 Indwelling Urethral Catheter 665 / 665 800 / 800 Wound Drainage # 1 Right Anterior Abdomen # 2 Left Anterior Abdomen 0 / 0 5 / 5 Other: Date of Last Bowel Movement 04/16/18 04/17/18 04/16/18 # Bowel Movements 2 # Incontinent Bowel Movements 2 Narrative: Up in stretcher chair Abd: soft, inc c/d/i; OANH drains ss low output - Urinary Catheter Management Indwelling Temp Sensing Catheter Cath placed during this visit: yes Urethral indwelling: No Reason for continuing: Hourly intake/output Insertion date: 04/04/18 Insertion time: 07:52 Indwelling Urethral Catheter Cath placed during this visit: yes Reason for continuing: Hourly intake/output Insertion date: 04/08/18 Insertion time: 16:51 Results - Labs 04/17/18 10:42 04/17/18 10:42 Laboratory Results - last 24 hr 04/16/18 04/16/18 04/16/18 12:12 17:01 19:05 WBC RBC Hgb Hct MCV MCH MCHC RDW Plt Count MPV Prelim Diff (Auto) Neut % (Auto) Lymph % (Auto) [place] % (Auto) Eos % (Auto) Baso % (Auto) Neut # (Auto) Lymph # (Auto) [place] # (Auto) Eos # (Auto) Baso # (Auto) WBC Differential Seg Neuts % (Manual) Band Neuts % (Manual) Lymphocytes % (Manual) Monocytes % (Manual) Eosinophils % (Manual) Plasma Cell % (Manual) Abs Neuts (Manual) Differential Comment Toxic Granulation Platelet Estimate Platelet Morphology Sodium Potassium 3.6 Chloride Carbon Dioxide Anion Gap BUN Creatinine Estimated GFR POC Glucose 95 115 H Random Glucose Calcium Phosphorus Magnesium Total Bilirubin AST ALT Alkaline Phosphatase Total Protein Albumin 04/16/18 04/16/18 04/17/18 21:52 23:48 04:41 WBC RBC Hgb Hct MCV MCH MCHC RDW Plt Count MPV Prelim Diff (Auto) Neut % (Auto) Lymph % (Auto) [place] % (Auto) Eos % (Auto) Baso % (Auto) Neut # (Auto) Lymph # (Auto) [place] # (Auto) Eos # (Auto) Baso # (Auto) WBC Differential Seg Neuts % (Manual) Band Neuts % (Manual) Lymphocytes % (Manual) Monocytes % (Manual) Eosinophils % (Manual) Plasma Cell % (Manual) Abs Neuts (Manual) Differential Comment Toxic Granulation Platelet Estimate Platelet Morphology Sodium Potassium Chloride Carbon Dioxide Anion Gap BUN Creatinine Estimated GFR POC Glucose 84 102 100 Random Glucose Calcium Phosphorus Magnesium Total Bilirubin AST ALT Alkaline Phosphatase Total Protein Albumin 04/17/18 04/17/18 04/17/18 05:57 08:45 10:42 WBC 24.9 H RBC 3.19 L Hgb 9.4 L Hct 28.5 L MCV 89.4 MCH 29.6 MCHC 33.1 RDW 16.0 Plt Count 354 D MPV 9.5 Prelim Diff (Auto) Slide review pending Neut % (Auto) 91.1 H Lymph % (Auto) 4.7 L [place] % (Auto) 3.5 Eos % (Auto) 0.6 Baso % (Auto) 0.1 Neut # (Auto) 22.7 H Lymph # (Auto) 1.2 [place] # (Auto) 0.9 Eos # (Auto) 0.1 Baso # (Auto) 0.0 WBC Differential Manual diff final Seg Neuts % (Manual) 88 H Band Neuts % (Manual) 3 Lymphocytes % (Manual) 2 L Monocytes % (Manual) 5 Eosinophils % (Manual) 1 Plasma Cell % (Manual) 1 H Abs Neuts (Manual) 22.7 H Differential Comment . Toxic Granulation 3+ H Platelet Estimate Normal Platelet Morphology Normal Sodium Potassium Chloride Carbon Dioxide Anion Gap BUN Creatinine Estimated GFR POC Glucose 152 H Random Glucose Calcium Phosphorus Magnesium Total Bilirubin AST ALT Alkaline Phosphatase Total Protein Albumin 04/17/18 04/17/18 10:42 11:51 WBC RBC Hgb Hct MCV MCH MCHC RDW Plt Count MPV Prelim Diff (Auto) Neut % (Auto) Lymph % (Auto) [place] % (Auto) Eos % (Auto) Baso % (Auto) Neut # (Auto) Lymph # (Auto) [place] # (Auto) Eos # (Auto) Baso # (Auto) WBC Differential Seg Neuts % (Manual) Band Neuts % (Manual) Lymphocytes % (Manual) Monocytes % (Manual) Eosinophils % (Manual) Plasma Cell % (Manual) Abs Neuts (Manual) Differential Comment Toxic Granulation Platelet Estimate Platelet Morphology Sodium 145 Potassium 3.1 L Chloride 105 Carbon Dioxide 32.7 H Anion Gap 7 BUN 16 Creatinine 0.71 Estimated GFR 80 L POC Glucose 121 H Random Glucose 107 H Calcium 7.7 L Phosphorus 2.8 Magnesium 2.2 Total Bilirubin 0.3 AST 61 H ALT 51 Alkaline Phosphatase 93 Total Protein 5.7 L Albumin 1.7 L - Imaging Imaging: ITS Impressions Abdomen/Bladder Ultrasound 04/08/18 00:00 CONCLUSION: Kidneys within normal limits. Right pleural effusion noted. Chest Ultrasound 04/11/18 00:00 CONCLUSION: 1. Left pleural effusion and marked on the skin. Thoracentesis CT 04/11/18 00:00 CONCLUSION: 1. Uncomplicated CT-guided thoracentesis. Abdomen X-Ray 04/11/18 12:13 CONCLUSION: Nonspecific, nonobstructive bowel gas pattern which may represent a mild ileus or gastroenteritis. Abdomen/Pelvis CT 04/12/18 00:00 CONCLUSION: 1. The previously noted free air on the prior study has resolved. Patient is recently status post abdominal surgery. There are surgical drains in the upper abdomen. 2. There is a trace of fluid adjacent to the liver. There is a small amount of free fluid deep in the pelvis. 3. Multiple dilated loops of small bowel with fluid and air suggestive of a postsurgical ileus. 4. There continues to be a prominent hiatal hernia. 5. Small bilateral pleural effusions with atelectasis in both lung bases. Chest CT 04/16/18 00:00 CONCLUSION: 1. Bilateral lower lobe consolidation/atelectasis and left greater than right pleural effusions. 2. Prominent hiatal hernia again noted. 3. Postsurgical findings in the region of the hiatal hernia and upper abdomen with surgical drains again in place. Elongated 4 x 2 cm fluid density in the left upper quadrant abutting the lateral margin of the stomach, nonspecific. Chest X-Ray 04/17/18 06:00 CONCLUSION: No significant interval change. Persistent left lower lobe consolidation versus atelectasis and bilateral hazy pulmonary opacity with lower lung zone predominance. Assessment and Plan - Plan POD 8 s/p lap wedge resection of stomach and partial reduction of large hiatal hernia for multiple perforated ulcers of greater curve. WBC continues to improve. Tolerating some diet. OANH minimal output. Soft diet. D/c OANH drains. Ok for lovenox rather than hep gtt if desired.
--- NOTE | 2018-04-17 13:36 | P.PNID ---
Subjective Remarks: ID Xcover for WBC down to 24 K today denies abd pain 2 unformed BMs in last 24 hrs Overnight events reviewed. No fevers No rash seen by ophthalmollogist : no fungal endophthalmitis seen on exam. off pressors BC growing C. glabrata no more + BC No central lines Methylene blue leak test is negative on 04/14 Antibiotics: micafungin fluconazol zosyn Lines: Lines ok Past Medical History: reviewed Allergies/Adverse Reactions: Allergies atorvastatin Adverse Reaction (Verified 04/04/18 06:21) Hypotension simvastatin Adverse Reaction (Verified 04/04/18 06:21) Hypotension Objective Vital Signs 04/16/18 15:00 04/16/18 16:50 04/16/18 17:00 Temperature 98 F Pulse Rate 83 83 Respiratory Rate 16 20 Blood Pressure 136/53 L Pulse Oximetry 99 99 04/16/18 19:00 04/16/18 21:38 04/16/18 23:00 Temperature 98.3 F 97.9 F Pulse Rate 91 H 83 101 H Respiratory Rate 22 22 23 Blood Pressure 151/81 H 142/75 H Pulse Oximetry 99 97 97 04/17/18 01:14 04/17/18 01:16 04/17/18 03:00 Temperature 98.3 F Pulse Rate 99 H 95 H Respiratory Rate 18 18 Blood Pressure 142/57 H Pulse Oximetry 98 98 04/17/18 03:54 04/17/18 05:00 04/17/18 11:34 Temperature Pulse Rate 89 75 Respiratory Rate 22 20 Blood Pressure Pulse Oximetry 98 98 Intake & Output 04/16/18 04/17/18 04/17/18 18:59 06:59 18:59 Intake Total 1090 / 1090 610 / 610 Output Total 685 / 685 815 / 815 Balance 405 / 405 -205 / -205 Weight 95 kg Intake: IV 490 / 490 130 / 130 Heparin/D5W 25,000 U/250 mL 25, 220 / 220 30 / 30 000 unit In 250 ml @ 1,700 UNITS/HR 17 mls/hr IV.CONT TITRATE PRN Rx#:[id number] Mycamine Inj 150 MG In NS Inj 100 / 100 100 ML @ 100 mls/hr IV.SIG Q24H YASH Rx#:[id number] Zosyn 3.375 GM Premix 50 ML @ 150 / 150 100 / 100 200 mls/hr IV.SIG Q6H YASH Rx#: [id number] KCl 20 mEq Premix Inj 20 meq In 100 ml @ 50 mls/hr IV.SIG Q2H PRN Rx#:[id number] Oral 600 / 600 480 / 480 Output: Urine Amount (Catheter) 665 / 665 800 / 800 Indwelling Urethral Catheter 665 / 665 800 / 800 Wound Drainage 15 15 # 1 Right Anterior Abdomen # 2 Left Anterior Abdomen 0 / 0 Other: Date of Last Bowel Movement 04/16/18 04/17/18 04/16/18 # Bowel Movements 2 # Incontinent Bowel Movements 2 04/12/18 05:11 Blood - Peripheral Aerobic Blood Culture - Final No growth in 5 days 04/12/18 05:11 Blood - Peripheral Anaerobic Blood Culture - Final No growth in 5 days 04/12/18 05:25 Blood - Peripheral Aerobic Blood Culture - Final No growth in 5 days 04/12/18 05:25 Blood - Peripheral Anaerobic Blood Culture - Final No growth in 5 days 04/15/18 00:00 Stool Stool Occult Blood (BALTAZAR) - Final Hemoccult positive Lab - Hematology Results 04/16/18 04/17/18 04/17/18 05:55 05:57 10:42 WBC 29.0 H 24.9 H RBC 3.06 L 3.19 L Hgb 9.1 L 9.4 L Hct 27.0 L 28.5 L MCV 88.0 89.4 MCH 29.6 29.6 MCHC 33.7 33.1 RDW 16.0 16.0 Plt Count 268 354 D MPV 9.2 9.5 Prelim Diff (Auto) Slide review pending Slide review pending Neut % (Auto) 90.9 H 91.1 H Lymph % (Auto) 4.9 L 4.7 L [place] % (Auto) 3.5 3.5 Eos % (Auto) 0.4 0.6 Baso % (Auto) 0.3 0.1 Neut # (Auto) 26.4 H 22.7 H Lymph # (Auto) 1.4 1.2 [place] # (Auto) 1.0 H 0.9 Eos # (Auto) 0.1 0.1 Baso # (Auto) 0.1 0.0 WBC Differential Manual diff final Manual diff final Seg Neuts % (Manual) 92 H 88 H Band Neuts % (Manual) 3 Lymphocytes % (Manual) 6 L 2 L Monocytes % (Manual) 5 Eosinophils % (Manual) 1 Metamyelocytes % (Man) 2 H Plasma Cell % (Manual) 1 H Abs Neuts (Manual) 27.3 H 22.7 H Differential Comment . . Toxic Granulation 3+ H Platelet Estimate Normal Normal Platelet Morphology Normal Normal RBC Morphology Normal Lab - Chemistry Results 04/15/18 04/15/18 04/15/18 13:32 17:03 17:36 Sodium Potassium 3.6 Chloride Carbon Dioxide Anion Gap BUN Creatinine Estimated GFR POC Glucose 110 97 Random Glucose Calcium Phosphorus Magnesium Total Bilirubin AST ALT Alkaline Phosphatase Total Protein Albumin 04/15/18 04/16/18 04/16/18 19:51 05:55 08:05 Sodium 144 Potassium 3.2 L Chloride 106 Carbon Dioxide 28.9 Anion Gap 9 BUN 17 Creatinine 0.70 Estimated GFR 81 L POC Glucose 112 H 73 Random Glucose 85 Calcium 7.5 L Phosphorus 3.2 Magnesium 2.1 Total Bilirubin 0.4 AST 53 H ALT 49 Alkaline Phosphatase 88 Total Protein 5.3 L Albumin 1.5 L 04/16/18 04/16/18 04/16/18 12:12 17:01 19:05 Sodium Potassium 3.6 Chloride Carbon Dioxide Anion Gap BUN Creatinine Estimated GFR POC Glucose 95 115 H Random Glucose Calcium Phosphorus Magnesium Total Bilirubin AST ALT Alkaline Phosphatase Total Protein Albumin 04/16/18 04/16/18 04/17/18 21:52 23:48 04:41 Sodium Potassium Chloride Carbon Dioxide Anion Gap BUN Creatinine Estimated GFR POC Glucose 84 102 100 Random Glucose Calcium Phosphorus Magnesium Total Bilirubin AST ALT Alkaline Phosphatase Total Protein Albumin 04/17/18 04/17/18 04/17/18 08:45 10:42 11:51 Sodium 145 Potassium 3.1 L Chloride 105 Carbon Dioxide 32.7 H Anion Gap 7 BUN 16 Creatinine 0.71 Estimated GFR 80 L POC Glucose 152 H 121 H Random Glucose 107 H Calcium 7.7 L Phosphorus 2.8 Magnesium 2.2 Total Bilirubin 0.3 AST 61 H ALT 51 Alkaline Phosphatase 93 Total Protein 5.7 L Albumin 1.7 L Imaging: ITS Impressions Abdomen/Bladder Ultrasound 04/08/18 00:00 CONCLUSION: Kidneys within normal limits. Right pleural effusion noted. Chest Ultrasound 04/11/18 00:00 CONCLUSION: 1. Left pleural effusion and marked on the skin. Thoracentesis CT 04/11/18 00:00 CONCLUSION: 1. Uncomplicated CT-guided thoracentesis. Abdomen X-Ray 04/11/18 12:13 CONCLUSION: Nonspecific, nonobstructive bowel gas pattern which may represent a mild ileus or gastroenteritis. Abdomen/Pelvis CT 04/12/18 00:00 CONCLUSION: 1. The previously noted free air on the prior study has resolved. Patient is recently status post abdominal surgery. There are surgical drains in the upper abdomen. 2. There is a trace of fluid adjacent to the liver. There is a small amount of free fluid deep in the pelvis. 3. Multiple dilated loops of small bowel with fluid and air suggestive of a postsurgical ileus. 4. There continues to be a prominent hiatal hernia. 5. Small bilateral pleural effusions with atelectasis in both lung bases. Chest CT 04/16/18 00:00 CONCLUSION: 1. Bilateral lower lobe consolidation/atelectasis and left greater than right pleural effusions. 2. Prominent hiatal hernia again noted. 3. Postsurgical findings in the region of the hiatal hernia and upper abdomen with surgical drains again in place. Elongated 4 x 2 cm fluid density in the left upper quadrant abutting the lateral margin of the stomach, nonspecific. Chest X-Ray 04/17/18 06:00 CONCLUSION: No significant interval change. Persistent left lower lobe consolidation versus atelectasis and bilateral hazy pulmonary opacity with lower lung zone predominance. Physical Exam: GENERAL: NAD awake alert OOB in a chair SKIN: Warm and dry. no rash HEAD: Atraumatic. Normocephalic. EYES: Pupils equal and round. No scleral icterus. No injection or drainage. ENT: No nasal bleeding or discharge. Mucous membranes pink and moist. NECK: Trachea midline. No JVD. CARDIOVASCULAR: Regular rate and rhythm. Chest wall surgical site with no e.o infection. RESPIRATORY: No accessory muscle use. Clear to auscultation. Breath sounds equal bilaterally. GASTROINTESTINAL: Abdomen soft, no tenderness to palpation, + distended JPs x [address] with no dc Hepatic and splenic margins not palpable. MUSCULOSKELETAL: Extremities without clubbing, no cyanosis or edema. No obvious deformities. NEUROLOGICAL: awake, fully alert speech normal appropriately unswering questions PSYCHIATRIC: calm Assessment and Plan - Plan Sepsis ongoing (fever at some point, WBC, source: Candidemia likely sec to GI issues: perforation. Large paraesophageal hernia sp perforation of stomach with diffuse contamination of abdominal cavity. SIRS/high grade leucocytosis likely from peritonitis and fungemia. 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 PIVs look ok. alanna mondragon RN @ b/s
[2018-04-17] MEDS: Micafungin Inj 150 MG in Sodium Chlor 0.9% Inj 100 ML IV.SIG SCH (14:11)
[2018-04-17] MEDS: Pantoprazole Inj 40 MG Vial IV.PUSH SCH ×2 (14:11→23:56)
[2018-04-17] MEDS: ALPRAZolam 0.25 MG Tablet PO PRN (17:52)
[2018-04-17] MEDS: Potassium Chlor 20 mEq Premix 20 MEQ/100 ML PIGGYBACK IV.SIG PRN (21:53)
[2018-04-17] MEDS ORDERED: Heparin 10,000 UNITS/10 ML Vial (for IV use) ONE (21:55)
[2018-04-17] MEDS: Heparin 10,000 UNITS/10 ML Vial (for IV use) IV.PUSH PRN ×2 (21:56→21:59)
--- NOTE | 2018-04-17 22:04 | P.PNCA ---
Subjective Interval history: No events overnight WBCs better Still very weak Medications and Allergies Active Medications: Active Medications Al Hydroxide/Mg Hydroxide (Milk Of Magnesia Liq) 30 ml PO DAILY FORMERLY [facility], [facility]1983 Last Admin: 04/17/18 08:48 Dose: Not Given Albuterol (Duoneb Neb (Prn)) 1 ampul NEB Q2HR NEB PRN PRN Reason: WHEEZING Last Admin: 04/17/18 01:14 Dose: 1 ampul Albuterol (Duoneb Neb (Jose)) 1 ampul NEB Q6HR NEB [facility], [facility]1983 Last Admin: 04/17/18 20:47 Dose: 1 ampul Alprazolam (Xanax) 0.25 mg PO Q8H PRN PRN Reason: ANXIETY Last Admin: 04/17/18 17:52 Dose: 0.25 mg Aspirin (Aspirin Chew) 81 mg PO DAILY FOR[facility], [facility]1983 Last Admin: 04/17/18 08:46 Dose: 81 mg Bisacodyl (Dulcolax Supp) 10 mg RECTAL PRN PRN PRN Reason: SEE LABEL COMMENTS Dextrose (D50w Vial) 50 ml IV.PUSH UNSCH PRN PRN Reason: PER HYPOGLYCEMIA PROTOCOL Last Admin: 04/12/18 05:40 Dose: 25 ml Docusate Sodium (Colace Liq) 100 mg PO BID [facility], [facility]1983 Last Admin: 04/17/18 21:11 Dose: Not Given Furosemide (Lasix Inj) 40 mg IV.PUSH DAILY [facility], [facility] Last Admin: 04/17/18 08:47 Dose: 40 mg Glucagon (Glucagon Inj) 1 mg OTHER UNSCH PRN PRN Reason: for Hypoglycemia Protocol Heparin Sodium (Porcine) (Heparin Inj) 5,000 units IV.PUSH UNSCH PRN PRN Reason: aPTT < 25 Heparin Sodium (Porcine) (Heparin Inj) 2,500 units IV.PUSH UNSCH PRN PRN Reason: aPTT 25-39 Last Admin: 04/17/18 21:59 Dose: 2,500 units Sodium Chloride (Ns Inj) 500 mls @ 30 mls/hr IV.SIG .Q10H [facility], [facility] Last Admin: 04/04/18 06:39 Dose: Not Given Piperacillin/Tazobactam/Dextrose (Zosyn 3.375 Gm Premix) 50 mls @ 200 mls/hr IV.SIG Q6H [facility], [facility]1983 Last Admin: 04/17/18 21:26 Dose: 100 mls/hr Magnesium Sulfate 4 gm/ Sodium (Chloride) 100 mls @ 50 mls/hr IV.SIG UNSCH PRN PRN Reason: For Magnesium 0.9 - 1.1 mg/dL Potassium Chloride (Kcl 40 Meq Premix Inj) 40 meq in 100 mls @ 25 mls/hr IV.SIG Q2H PRN PRN Reason: For Potassium 2.8 - 3.2 mEq/L Potassium Chloride (Kcl 20 Meq Premix Inj) 20 meq in 100 mls @ 50 mls/hr IV.SIG Q2H PRN PRN Reason: For Potassium 3.3 - 3.5 mEq/L Last Infusion: 04/15/18 10:38 Dose: Infused Potassium Chloride (Kcl 40 Meq Premix Inj) 40 meq in 100 mls @ 25 mls/hr IV.SIG UNSCH PRN PRN Reason: For Potassium 3.3 - 3.5 mEq/L Potassium Chloride (Kcl 20 Meq Premix Inj) 20 meq in 100 mls @ 50 mls/hr IV.SIG Q2H PRN PRN Reason: For Potassium 2.8 - 3.2 mEq/L Last Admin: 04/17/18 21:53 Dose: 20 mls/hr Potassium Phosphate 30 mmol/ (Sodium Chloride) 260 mls @ 42 mls/hr IV.SIG UNSCH PRN PRN Reason: SEE LABEL COMMENTS Magnesium Sulfate 2 gm/ Sodium (Chloride) 100 mls @ 50 mls/hr IV.SIG UNSCH PRN PRN Reason: For Magnesium 1.2 - 1.6 mg/dL Sodium Phosphate 30 mmol/ (Sodium Chloride) 260 mls @ 42 mls/hr IV.SIG UNSCH PRN PRN Reason: For Phosphorus < 2.5 mg/dL Heparin Sodium/Dextrose (Heparin/D5w 25,000 U/250 Ml) 25,000 unit in 250 mls @ 17 mls/hr IV.CONT TITRATE PRN; Protocol PRN Reason: Per Protocol Last Admin: 04/16/18 23:59 Dose: 900 units/hr, 9 mls/hr Micafungin Sodium 150 mg/ (Sodium Chloride) 100 mls @ 100 mls/hr IV.SIG Q24H JSOE Last Infusion: 04/17/18 16:00 Dose: Infused Acetaminophen (Ofirmev Inj) 1,000 mg in 100 mls @ 400 mls/hr IV.SIG Q6H PRN PRN Reason: PAIN SCALE 1 TO 10 Last Infusion: 04/17/18 18:56 Dose: Infused Insulin Aspart (Novolog Insulin Correctional Sugar Inj) 0 unit SQ Q4HR [facility], [facility]; Protocol Last Admin: 04/17/18 17:13 Dose: Not Given Levothyroxine Sodium (Synthroid) 100 mcg PO DAILY@0600 [facility], [facility] Last Admin: 04/17/18 06:31 Dose: 100 mcg Magnesium Oxide (Mag-Ox) 800 mg PO UNSCH PRN PRN Reason: For Magnesium 1.2 - 1.6 mg/dL Miscellaneous (Pill Splitter) 1 each OTHER UNSCH PRN PRN Reason: SEE LABEL COMMENTS Multivitamins/Minerals (Theragran-M) 1 tab PO DAILY [facility] Last Admin: 04/17/18 08:46 Dose: 1 tab Ondansetron HCl (Zofran Inj) 4 mg IV.PUSH Q6H PRN PRN Reason: NAUSEA OR VOMITING Last Admin: 04/17/18 21:58 Dose: 4 mg Pantoprazole Sodium (Protonix Inj) 40 mg IV.PUSH Q12H [facility] Last Admin: 04/17/18 14:11 Dose: 40 mg Paroxetine HCl (Paxil) 10 mg PO DAILY [facility] Last Admin: 04/17/18 08:46 Dose: 10 mg Patient's Own: ( Rosuvastatin [ Rosuvastatin] 20 Mg) 0 each PO DAILY [facility] Polyethylene Glycol (Miralax) 17 gm PO DAILY [facility], [facility] Last Admin: 04/17/18 08:48 Dose: Not Given Potassium Bicarb/Potassium Chloride (K-Lyte Cl Eff) 50 meq PO UNSCH PRN PRN Reason: For Potassium 3.3 - 3.5 mEq/L Last Admin: 04/16/18 08:19 Dose: 50 meq Potassium Phosphate (K-Phos Original) 2,000 mg PO Q4H PRN PRN Reason: Phosphorus Less Than 2.5 mg/dL Potassium Phosphate (K-Phos Original) 2,000 mg PO UNSCH PRN PRN Reason: SEE LABEL COMMENTS Sennosides (Senokot) 8.6 mg PO HS [facility] Last Admin: 04/17/18 21:11 Dose: Not Given Sodium Biphosphate/Sodium Phosphate (Fleets Enema (Adult)) 118 ml RECTAL UNSCH PRN PRN Reason: SEE LABEL COMMENTS Sodium Chloride (Ns Flush) 2 ml IV.FLUSH BID [facility] Last Admin: 04/17/18 21:27 Dose: 2 ml Sodium Chloride (Ns Flush) 2 ml IV.FLUSH PRN PRN PRN Reason: FLUSH AFTER USING IV ACCESS Verapamil HCl (Isoptin) 40 mg PO TID [facility] Last Admin: 04/17/18 17:57 Dose: 40 mg Allergies Allergy/AdvReac Type Severity Reaction Status Date / Time atorvastatin AdvReac Hypotension Verified 04/04/18 06:21 simvastatin AdvReac Hypotension Verified 04/04/18 06:21 Home Medications Medication Instructions Recorded Confirmed Type ciprofloxacin HCl [Cipro] 500 mg PO Q12H 02/16/18 04/04/18 History coenzyme Q10 [Co Q-10] 10 mg PO TID 02/16/18 04/04/18 History furosemide 40 mg PO BID 02/16/18 04/04/18 History losartan 50 mg PO DAILY 02/16/18 04/04/18 History pantoprazole 40 mg PO DAILY 02/16/18 04/04/18 History paroxetine HCl 10 mg PO DAILY 02/16/18 04/04/18 History potassium chloride [K-Tab] 10 meq PO DAILY 02/16/18 04/04/18 History ranitidine HCl 150 mg PO BID 02/16/18 04/04/18 History rosuvastatin 20 mg PO DAILY 02/16/18 04/04/18 History verapamil 180 mg PO DAILY 02/16/18 04/04/18 History warfarin 5 mg PO DAILY 02/16/18 04/04/18 History aspirin 81 mg PO DAILY 03/09/18 04/04/18 History nitroglycerin 0.4 mg SUBLINGUAL Q5-15M PRN 03/09/18 04/04/18 History Physical Exam Vital signs: Vital Signs 04/16/18 23:00 04/17/18 01:14 04/17/18 01:16 Temperature 97.9 F Pulse Rate 101 H 99 H Respiratory Rate 23 18 Blood Pressure 142/75 H Pulse Oximetry 97 98 04/17/18 03:00 04/17/18 03:54 04/17/18 05:00 Temperature 98.3 F Pulse Rate 95 H 89 Respiratory Rate 18 22 Blood Pressure 142/57 H Pulse Oximetry 98 98 04/17/18 07:00 04/17/18 11:00 04/17/18 11:34 Temperature 98.0 F 98.1 F Pulse Rate 91 H 95 H 75 Respiratory Rate 18 18 20 Blood Pressure 120/63 119/55 L Pulse Oximetry 98 95 98 04/17/18 15:00 04/17/18 15:51 04/17/18 18:57 Temperature 98.1 F Pulse Rate 87 80 Respiratory Rate 18 18 18 Blood Pressure 133/64 Pulse Oximetry 95 04/17/18 20:49 Temperature Pulse Rate 75 Respiratory Rate 18 Blood Pressure Pulse Oximetry 98 Intake & Output 04/17/18 04/17/18 04/18/18 06:59 18:59 06:59 Intake Total 610 / 610 1210 / 1210 50 / 50 Output Total 815 / 815 1205 / 1205 Balance -205 / -205 5 / 5 50 / 50 Weight 95 kg Intake: IV 130 / 130 250 / 250 50 / 50 Heparin/D5W 25,000 U/250 mL 25, 30 / 30 000 unit In 250 ml @ 1,700 UNITS/HR 17 mls/hr IV.CONT TITRATE PRN Rx#:[id number] Ofirmev Inj 1,000 mg In 100 ml 100 / 100 @ 400 mls/hr IV.SIG Q6H PRN Rx# :[id number] Mycamine Inj 150 MG In NS Inj 100 / 100 100 ML @ 100 mls/hr IV.SIG Q24H JOSE Rx#:[id number] Zosyn 3.375 GM Premix 50 ML @ 100 / 100 50 / 50 50 / 50 200 mls/hr IV.SIG Q6H JOSE Rx#: [id number] Oral 480 / 480 960 / 960 Output: Urine Amount (Catheter) 800 / 800 1195 / 1195 Indwelling Urethral Catheter 800 / 800 1195 / 1195 Wound Drainage # 1 Right Anterior Abdomen # 2 Left Anterior Abdomen 5 / 0 / 0 Other: Date of Last Bowel Movement 04/17/18 04/17/18 # Bowel Movements 2 2 # Incontinent Bowel Movements 2 Narrative: GENERAL: NAD SKIN: Warm and dry. HEAD: Atraumatic. Normocephalic. EYES: Pupils equal and round. No scleral icterus. No injection or drainage. ENT: No nasal bleeding or discharge. Mucous membranes pink and moist. NECK: Trachea midline. No JVD. CARDIOVASCULAR: Irregularly irregular RESPIRATORY: No accessory muscle use. Decreased breath sounds bilaterally GASTROINTESTINAL: Abdomen soft, non-tender, nondistended. Hepatic and splenic margins not palpable. MUSCULOSKELETAL: Extremities without clubbing, cyanosis, or edema. No obvious deformities. NEUROLOGICAL: Awake and alert. No obvious cranial nerve deficits. Motor grossly within normal limits. Five out of 5 muscle strength in the arms and legs. Normal speech. PSYCHIATRIC: Appropriate mood and affect; insight and judgment normal. - Urinary Catheter Management Indwelling Temp Sensing Catheter Cath placed during this visit: yes Urethral indwelling: No Reason for continuing: Hourly intake/output Insertion date: 04/04/18 Insertion time: 07:52 Indwelling Urethral Catheter Cath placed during this visit: yes Reason for continuing: Hourly intake/output Insertion date: 04/08/18 Insertion time: 16:51 Results 04/16/18 05:55 04/17/18 21:10 Cardiac Enzymes 04/16/18 04/17/18 Range/Units 05:55 10:42 AST 53 H 61 H (15-37) U/L Coagulation 04/16/18 04/17/18 Range/Units 05:55 19:48 APTT 48.2 H 35.2 H D (23.4-31.7) sec CBC 04/16/18 04/17/18 Range/Units 05:55 06:30 WBC 29.0 H 24.9 H (4.0-11.0) th/mm3 RBC 3.06 L 3.19 L (4.00-5.30) mil/mm3 Hgb 9.1 L 9.4 L (11.6-15.3) gm/dL Hct 27.0 L 28.5 L (35.0-46.0) % Plt Count 268 354 D (150-450) th/mm3 Neut # (Auto) 26.4 H 22.7 H (1.8-7.7) th/mm3 Lymph # (Auto) 1.4 1.2 (1.0-4.8) th/mm3 [place] # (Auto) 1.0 H 0.9 (0.0-0.9) th/mm3 Eos # (Auto) 0.1 0.1 (0.0-0.4) th/mm3 Baso # (Auto) 0.1 0.0 (0.0-0.2) th/mm3 Comprehensive Metabolic Panel 04/16/18 04/16/18 04/17/18 Range/Units 05:55 19:05 10:42 Sodium 144 145 (136-145) meq/L Potassium 3.2 L 3.6 3.1 L (3.5-5.1) meq/L Chloride 106 105 (98-107) meq/L Carbon Dioxide 28.9 32.7 H (21.0-32.0) meq/L BUN 17 16 (7-18) mg/dL Creatinine 0.70 0.71 (0.50-1.00) mg/dL Calcium 7.5 L 7.7 L (8.5-10.1) mg/dL AST 53 H 61 H (15-37) U/L ALT 49 51 (10-53) U/L Alkaline Phosphatase 88 93 (45-117) U/L Total Protein 5.3 L 5.7 L (6.4-8.2) g/dL Albumin 1.5 L 1.7 L (3.4-5.0) g/dL 04/17/18 Range/Units 21:10 Sodium (136-145) meq/L Potassium 3.0 L (3.5-5.1) meq/L Chloride (98-107) meq/L Carbon Dioxide (21.0-32.0) meq/L BUN (7-18) mg/dL Creatinine (0.50-1.00) mg/dL Calcium (8.5-10.1) mg/dL AST (15-37) U/L ALT (10-53) U/L Alkaline Phosphatase (45-117) U/L Total Protein (6.4-8.2) g/dL Albumin (3.4-5.0) g/dL Intake and Output 04/17/18 04/17/18 04/17/18 06:59 14:59 22:59 Intake Total 530 / 530 50 / 50 1210 / 1210 Output Total 815 / 815 1205 / 1205 Balance -285 / -285 / 50 Intake: IV 50 / 50 50 / 50 250 / 250 Ofirmev Inj 1,000 mg In 100 ml 100 / 100 @ 400 mls/hr IV.SIG Q6H PRN Rx# :[id number] Mycamine Inj 150 MG In NS Inj 100 / 100 100 ML @ 100 mls/hr IV.SIG Q24H JOSE Rx#:[id number] Zosyn 3.375 GM Premix 50 ML @ 50 / 50 50 / 50 50 / 50 200 mls/hr IV.SIG Q6H JOSE Rx#: [id number] Oral 480 / 480 960 / 960 Output: Urine Amount (Catheter) 800 / 800 1195 / 1195 Indwelling Urethral Catheter 800 / 800 1195 / 1195 Wound Drainage # 1 Right Anterior Abdomen # 2 Left Anterior Abdomen 5 0 / 0 Other: Date of Last Bowel Movement 04/17/18 04/17/18 04/17/18 # Bowel Movements 2 2 # Incontinent Bowel Movements 2 Weight 95 kg - Imaging and Cardiology Imaging: Impressions Chest CT 04/16/18 00:00 CONCLUSION: 1. Bilateral lower lobe consolidation/atelectasis and left greater than right pleural effusions. 2. Prominent hiatal hernia again noted. 3. Postsurgical findings in the region of the hiatal hernia and upper abdomen with surgical drains again in place. Elongated 4 x 2 cm fluid density in the left upper quadrant abutting the lateral margin of the stomach, nonspecific. Chest X-Ray 04/16/18 04:00 CONCLUSION: Unchanged exam. Chest X-Ray 04/17/18 06:00 CONCLUSION: No significant interval change. Persistent left lower lobe consolidation versus atelectasis and bilateral hazy pulmonary opacity with lower lung zone predominance. Assessment and Plan - Assessment (1) Severe aortic stenosis Code(s): I35.0 - Nonrheumatic aortic (valve) stenosis Status: Chronic (2) Coronary artery disease involving [place] coronary artery Code(s): I25.10 - Atherosclerotic heart disease of [place] coronary artery without angina pectoris Status: Acute (3) Congestive heart failure (CHF) Code(s): I50.9 - Heart failure, unspecified Status: Chronic (4) Atrial fibrillation Code(s): I48.91 - Unspecified atrial fibrillation Status: Chronic (5) S/P CABG (coronary artery bypass graft) Code(s): Z95.1 - Presence of aortocoronary bypass graft Status: Acute - Plan 1) CAD s/p CABGx2 2) Residual Possible TAVR in the future Not a BAV candidate at this time with at least moderate AR 3) AFib Cardioverted before abdominal surgery Back in AFib Heart rates stable after digoxin load Now on Verapamil controlling rates Start on heparin drip, will have to restart Coumadin at some point Will have to see how she does hemodynamically going further, might need to cardiovert again, stable for now 4) Gastric ulcer/perfs Per surgery
[2018-04-18] MEDS: Insulin NovoLOG Aspart Correctional Sugar Inj SQ SCH ×6 (00:17→21:05)
[2018-04-18] MEDS: ALPRAZolam 0.25 MG Tablet PO PRN ×3 (02:36→21:12)
[2018-04-18] MEDS: Potassium Chlor 20 mEq Premix 20 MEQ/100 ML PIGGYBACK IV.SIG PRN (02:53)
[2018-04-18] MEDS: Piperacil/Tazo 3.375 GM Premix 50 ML IV.SIG SCH ×2 (03:32→08:04)
[2018-04-18] MEDS ORDERED: Heparin 10,000 UNITS/10 ML Vial (for IV use) IV.PUSH PRN (03:42)
[2018-04-18 04:33] LABS: ABG Base Excess 6.7 mmol/L (-2-2); ABG PCO2 46 mmHg (38-42); ABG PO2 94 mmHG (61-120)
[2018-04-18] MEDS: Heparin Drip 25,000 UNIT/250 ML BAG IV.CONT PRN (05:13)
[2018-04-18] MEDS: Levothyroxine 100 MCG Tablet PO SCH (05:15)
[2018-04-18 06:56] LABS: Baso # (Auto) 0.1 th/mm3 (0.0-0.2); Baso % (Auto) 0.4 % (0.0-2.0); Eos # (Auto) 0.2 th/mm3 (0.0-0.4); Eos % (Auto) 0.6 % (0.0-4.0); Hematocrit 30.6 % (35.0-46.0); Hemoglobin 9.8 gm/dL (11.6-15.3); Lymph # (Auto) 1.2 th/mm3 (1.0-4.8); Lymph % (Auto) 4.7 % (9.0-44.0); Mean Corpuscular HGB Conc 32.2 % (32.0-36.0); Mean Corpuscular Hemoglobin 29.2 pg (27.0-34.0); Mean Corpuscular Volume 90.8 fL (80.0-100.0); Mean Platelet Volume 9.2 fL (7.0-11.0); Neut # (Auto) 22.2 th/mm3 (1.8-7.7); Neut % (Auto) 90.3 % (16.0-70.0); Platelet Count 413 th/mm3 (150-450); Red Blood Count 3.37 mil/mm3 (4.00-5.30); Red Cell Distribution Width 15.9 % (11.6-17.2); White Blood Count 24.6 th/mm3 (4.0-11.0)
[2018-04-18 07:27] LABS: Albumin 1.9 g/dL (3.4-5.0); Anion Gap 7 meq/L (5-15); Aspartate Aminotransferase 64 U/L (15-37); Blood Urea Nitrogen 18 mg/dL (7-18); Carbon Dioxide 32.2 meq/L (21.0-32.0); Chloride 104 meq/L (98-107); Glomerular Filtration Rate 71 mL/min (>89); Glucose,Random 116 mg/dL (74-106); Potassium 3.4 meq/L (3.5-5.1); Sodium 143 meq/L (136-145)
[2018-04-18 07:28] LABS: Alanine Aminotransferase 53 U/L (10-53)
[2018-04-18 07:30] LABS: Alkaline Phosphatase 100 U/L (45-117)
[2018-04-18] MEDS: Docusate Sodium Liq 100 MG/10 ML UDC PO SCH ×2 (08:01→21:06)
[2018-04-18] MEDS: Polyethylene Glycol 3350 17 GM Packet PO SCH (08:02)
[2018-04-18] MEDS: Multivitamin/Minerals Therapeutic Tablet PO SCH (08:02)
[2018-04-18] MEDS ORDERED: Warfarin Consult Pharmacy OTHER PRN (10:08)
--- NOTE | 2018-04-18 10:13 | P.PNCC ---
Subjective Subjective Remarks/Hospital Course: This is a 77-year-old female. Date of admission 04/04/2018. Date of consultation 04/06/2018. Patient has no history of aortic stenosis, coronary disease, hypertension, hyperlipidemia, gastroesophageal reflux disease, hypothyroidism and depression. On 04/04, patient had a two-vessel CABG ZAPATA to LAD, reverse saphenous vein graft to OM of left circumflex with left EVH and CLARA excision. Without complications. Today, patient this morning was in atrial fibrillation with rapid ventricular response. Received 150 mg IV amiodarone and started on oral amiodarone 400 mg along with 25 mg of oral metoprolol tartrate.. She became bradycardic this afternoon and we are asked to evaluate the patient. She is received 2 g of calcium chloride and is currently been started on dopamine drip. Her heart rate and blood pressure immediately improved after the infusion of calcium chloride. In reviewing laboratories, potassium magnesium are within normal limits. She does have a new leukocytosis of 19,000. She denies shortness of breath. She is more confused likely due to hypoperfusion 04/07 Patient is lying in bed in NAD. Feeling nauseas, denies any abdominal pain. 04/08 Patient was given Lopressor, Cardizem and Digoxin overnight for tachycardic became hypotensive and started on Neosyn ( current MAP 81mmHg). Renal function worse today with Cr: 2.22 from 1.76 04/09 Patient s/p Laparoscopic partial reduction of paraesophageal hernia and wedge resection of greater curvature of stomach. Remains intubated postop on Levophed 3 mics, sedated with Fentanyl and on is Precedex drip. s/p [id number] PRBC overnight Hgb 9.6 this morning from 6.8 04/10 Patient remains intubated and sedated. On Levophed 2 mics. :100.4 at 4am, renal function is improving with Cr: 1.40 from 1.99 04/11 Patient remains intubated off Levophed. On Fentanyl infusion for sedation. Renal function is improving with Cr:1.18 from 1.4. Afebrile. 04/12 Patient is awake and alert on CPAP with PS 10, PEEP:5 and FIO2 35%, s/p CT guided right thoracentesis yesterday with removal 550ml. Afebrile. On Heparin drip. 04/13 Patient was extubated yesterday on 2L oxygen, on Heparin drip. Afebrile. 04/14 No events overnight. Afebrile, WBC is rising 35 today from 30. On Heparin drip. 04/15 Patient was anxious this morning. Afebrile however WBC continue to rise 37 today. On Heparin drip. 04/16: White blood cell count down to 29K. Remains on heparin drip. Awake and alert and following commands. Anxiety noted. Requesting alprazolam. 04/17 no events overnight. WBC continue to trend down 24 today. Afebrile. On Heparin drip. On 3L oxygen. SUBJECTIVE: 04/18: Afebrile. White blood cell count stable at 24,000. Remains on heparin drip. Remains on 2 L nasal cannula. Awake and alert and appropriate today. Discussed with CT surgery. Okay to transfer to [facility]. Would like to start on warfarin we will ask general surgery. Objective Vital Signs / I&O: Vital Signs 04/17/18 11:00 04/17/18 11:34 04/17/18 15:00 Temperature 98.1 F 98.1 F Pulse Rate 95 H 75 87 Respiratory Rate 18 20 18 Blood Pressure 119/55 L 133/64 Pulse Oximetry 95 98 95 04/17/18 15:51 04/17/18 18:57 04/17/18 19:00 Temperature 98.3 F Pulse Rate 80 89 Respiratory Rate 18 18 22 Blood Pressure 128/95 H Pulse Oximetry 98 04/17/18 20:49 04/17/18 23:00 04/18/18 03:00 Temperature 97.9 F 98.2 F Pulse Rate 75 86 91 H Respiratory Rate 18 24 Blood Pressure 138/66 146/77 H Pulse Oximetry 98 98 99 04/18/18 03:50 04/18/18 04:00 04/18/18 07:00 Temperature 98.3 F Pulse Rate 89 81 Respiratory Rate 20 20 Blood Pressure 121/75 Pulse Oximetry 99 999 H 04/18/18 07:41 04/18/18 09:45 Temperature Pulse Rate 67 Respiratory Rate 19 Blood Pressure Pulse Oximetry 99 98 Intake & Output 04/17/18 04/18/18 04/18/18 18:59 06:59 18:59 Intake Total 1210 / 1210 1360 / 1360 200 / 200 Output Total 1205 / 1205 Balance 1360 / 1360 200 / 200 Weight 92 kg Intake: IV 250 / 250 450 / 450 200 / 200 Heparin/D5W 25,000 U/250 mL 25, 250 / 250 000 unit In 250 ml @ 1,700 UNITS/HR 17 mls/hr IV.CONT TITRATE PRN Rx#:[id number] Ofirmev Inj 1,000 mg In 100 ml 100 / 100 @ 400 mls/hr IV.SIG Q6H PRN Rx# :[id number] Mycamine Inj 150 MG In NS Inj 100 / 100 100 ML @ 100 mls/hr IV.SIG Q24H YASH Rx#:[id number] Zosyn 3.375 GM Premix 50 ML @ 50 / 50 100 / 100 100 / 100 200 mls/hr IV.SIG Q6H YASH Rx#: [id number] KCl 20 mEq Premix Inj 20 meq In 100 / 100 100 / 100 100 ml @ 50 mls/hr IV.SIG Q2H PRN Rx#:[id number] Oral 960 / 960 430 / 430 Oral Supplement 480 / 480 Output: Urine Amount (Catheter) 1195 / 1195 Indwelling Urethral Catheter 1195 / 1195 Wound Drainage # 1 Right Anterior Abdomen # 2 Left Anterior Abdomen 0 / 0 Other: Date of Last Bowel Movement 04/17/18 04/18/18 04/17/18 # Bowel Movements 2 4 # Incontinent Bowel Movements 4 Result Diagrams: 04/18/18 06:23 04/18/18 06:23 Other Results: Microbiology 04/12/18 05:11 Blood - Peripheral Aerobic Blood Culture - Final No growth in 5 days 04/12/18 05:11 Blood - Peripheral Anaerobic Blood Culture - Final No growth in 5 days 04/12/18 05:25 Blood - Peripheral Aerobic Blood Culture - Final No growth in 5 days 04/12/18 05:25 Blood - Peripheral Anaerobic Blood Culture - Final No growth in 5 days 04/15/18 00:00 Stool Stool Occult Blood (BALTAZAR) - Final Hemoccult positive 04/11/18 16:10 Fluid - Pleural fluid Gram Stain - Final 04/11/18 16:10 Fluid - Pleural fluid Body Fluid Culture - Final No growth in 72 hours (aerobically and anaerobically ) 04/08/18 14:40 Blood - Peripheral Aerobic Blood Culture - Final [place] glabrata 04/08/18 14:40 Blood - Peripheral Anaerobic Blood Culture - Final No growth in 5 days 04/11/18 16:57 Sputum - Endotracheal Gram Stain - Final 04/11/18 16:57 Sputum - Endotracheal Sputum Culture - Final Moderate growth normal respiratory darwin 04/08/18 14:33 Blood - Peripheral Aerobic Blood Culture - Final No growth in 5 days 04/08/18 14:33 Blood - Peripheral Anaerobic Blood Culture - Final No growth in 5 days Imaging: Chest X-Ray 04/04/18 11:27 CONCLUSION: 1. Status post CABG. 2. Cardiomegaly with pulmonary vascular congestion and bibasilar densities. 3. Support lines and tubes as above. 4. Nasogastric tube likely coiled within a large hiatal hernia. Chest X-Ray 04/05/18 05:00 CONCLUSION: Bibasilar consolidation slightly worse on the right and slightly improved on the left since yesterday. Mediastinal drain and left chest tube remain in place. No pneumothorax. Chest X-Ray 04/06/18 00:00 CONCLUSION: 1. Huge hiatal hernia and the entire stomach is basically said the chest filled with gas not present previously. 2. Slight bilateral lung base atelectasis and/or infiltrate is seen, mild pulmonary edema is also suspected. Abdomen X-Ray 04/07/18 00:00 CONCLUSION: Nonspecific bowel gas pattern with scattered small and large bowel gas. Chest X-Ray 04/07/18 06:00 CONCLUSION: Resolving pulmonary edema. Small left effusion Abdomen/Bladder Ultrasound 04/08/18 00:00 CONCLUSION: Kidneys within normal limits. Right pleural effusion noted. Chest X-Ray 04/08/18 09:12 CONCLUSION: 1. Increased bilateral lower lung zone opacity indicating a combination of consolidation/atelectasis and small pleural effusions. 2. Large hiatal hernia with gas-filled stomach in the chest again seen. Abdomen/Pelvis CT 04/08/18 10:09 CONCLUSION: 1. Prominent amount of free air and free fluid in the upper abdomen and within a large hiatal hernia. A large portion of the stomach is in a hiatal hernia. Most likely etiology for the findings is a perforated gastric ulcer. Findings discussed with the patient's nurse. 2. Distended gallbladder. Chest CT 04/08/18 10:09 CONCLUSION: 1. Large hiatal hernia containing a large portion of the stomach with moderate amount of free air in the hiatal hernia and in the upper abdomen. Distal gastric wall thickening and extraluminal fluid adjacent to the distal stomach. Most likely etiology for the findings is a perforated gastric ulcer. Free fluid is also seen in the upper abdomen. 2. New bilateral lower lobe atelectasis/consolidation and small bilateral pleural effusions. Chest X-Ray 04/08/18 22:44 CONCLUSION: Satisfactory tube and line positioning. Improved aeration. Chest X-Ray 04/10/18 09:12 CONCLUSION: Bibasilar consolidation and pleural effusions. Chest Ultrasound 04/11/18 00:00 CONCLUSION: 1. Left pleural effusion and marked on the skin. Chest Ultrasound 04/11/18 00:00 CONCLUSION: 1. Right pleural effusion marked on the skin. Thoracentesis CT 04/11/18 00:00 CONCLUSION: 1. Uncomplicated CT-guided thoracentesis. Abdomen X-Ray 04/11/18 12:13 CONCLUSION: Nonspecific, nonobstructive bowel gas pattern which may represent a mild ileus or gastroenteritis. Chest X-Ray 04/11/18 16:34 CONCLUSION: Status post right thoracentesis. No evidence of pneumothorax. Abdomen/Pelvis CT 04/12/18 00:00 CONCLUSION: 1. The previously noted free air on the prior study has resolved. Patient is recently status post abdominal surgery. There are surgical drains in the upper abdomen. 2. There is a trace of fluid adjacent to the liver. There is a small amount of free fluid deep in the pelvis. 3. Multiple dilated loops of small bowel with fluid and air suggestive of a postsurgical ileus. 4. There continues to be a prominent hiatal hernia. 5. Small bilateral pleural effusions with atelectasis in both lung bases. Chest X-Ray 04/14/18 09:40 CONCLUSION: Persistent mild vascular congestion and left basilar airspace disease. Suspected small effusions. Otherwise stable chest status post extubation. Chest CT 04/16/18 00:00 CONCLUSION: 1. Bilateral lower lobe consolidation/atelectasis and left greater than right pleural effusions. 2. Prominent hiatal hernia again noted. 3. Postsurgical findings in the region of the hiatal hernia and upper abdomen with surgical drains again in place. Elongated 4 x 2 cm fluid density in the left upper quadrant abutting the lateral margin of the stomach, nonspecific. Chest X-Ray 04/16/18 04:00 CONCLUSION: Unchanged exam. Chest X-Ray 04/17/18 06:00 CONCLUSION: No significant interval change. Persistent left lower lobe consolidation versus atelectasis and bilateral hazy pulmonary opacity with lower lung zone predominance. Objective Remarks: GENERAL: Patient is 77 yo lying in bed on nasal cannula in no acute distress SKIN: Warm and dry. HEAD: Normocephalic. EYES: No scleral icterus. No injection or drainage. NECK: Supple, trachea midline. No JVD or lymphadenopathy. CARDIOVASCULAR: Tachycardic and irregular. S1, S2 no S 4. RESPIRATORY: Breath sounds equal bilaterally. No accessory muscle use. GASTROINTESTINAL: Abdomen soft, non-tender, nondistended. Incision site is clean dry and intact MUSCULOSKELETAL: Trace nonpitting bilateral lower extremity edema Neuro: Awake and alert. Moves all 4 extremities spontaneously. Assessment and Plan - Assessment and Plan Plan: Neuro/Psych: Depressive disorder NOS History of TIA Awake and alert on paroxetine 10 mg daily for depression. CV: Postoperative CABG x2 ZAPATA to LAD, reverse saphenous vein graft to OM with left EVH and CLARA excision -Dr. Warner Atrial fibrillation Essential hypertension by history Hyperlipidemia Coronary artery disease status post PTCA left anterior descending proximal monitor HR and BP keep MAP>65mmHG On Verapamil 40mg TID, ASA 81mg daily Cardiac catheterization 417 revealed 0.48 cm area. EF 55-60%. Moderate aortic regurgitation. On rosuvastatin 10 mg daily at home. Noted allergies to atorvastatin simvastatin Cards has followed- Dr. Valle On Heparin drip- Monitor PTT per protocol. Resp: VDRF Extubated 04/12 Obstructive sleep apnea Continue with nasal cannula oxygen keep sats> 92% Bronchodilators every 6 hours, IS chest x-ray 04/19 a.m. s/p CT guided right thoracentesis 04/11 with removal 550 ml pleural fluid Exudative effusion by LDH criteria likely 2nd diuretics On furosemide 40 mg IV daily. GI: s/p Laparoscopic partial reduction of paraesophageal hernia, wedge resection of greater curvature of stomach 04/08 Diverticulosis Gastroesophageal reflux disease Hiatal hernia Hypoalbuminemia On PO cardiac diet Pantoprazole for GI prophylaxis CT abdomen/pelvis 04/12 - the previously noted free air on the prior study has resolved. Patient is recently status post abdominal surgery. There are surgical drains in the upper abdomen. Multiple dilated loops of small bowel with fluid and air suggestive of a postsurgical ileus. Prominent hiatal hernia. Docusate sodium/senna 1 tablet twice daily for hours along with polythene glycol 17 g daily KUB 04/11: Nonspecific, nonobstructive bowel gas pattern which may represent a mild ileus KUB abdomen 04/07 : Nonspecific bowel gas pattern with scattered small and large bowel gas. 04/08 CT abd/pelvis- Prominent amount of free air and free fluid in the upper abdomen and within a large hiatal hernia. A large portion of the stomach is in a hiatal hernia. Most likely etiology for the findings is a perforated gastric ulcer. 04/08 s/p Laparoscopic partial reduction of paraesophageal hernia, wedge resection of greater curvature of stomach, washout, drain placement performed. Monitor OANH drainage- Surgery- Dr. Craig. Endo: Hypothyroidism Currently on levothyroxine 100 mcg p.o. daily TSH:0.72 Sliding scale insulin with aspart insulin FEN//renal: Acute kidney injury Acute hypopotassemia Monitor renal function, I/O's, electrolytes replacement per protocol Furosemide 40mg IV daily Renal US: No hydronephrosis Heme: Leukocytosis Normocytic anemia Chronic warfarin use Monitor CBC, Coags daily.on Heparin drip per cards s/p transfusion 2u PRBC overnight 04/09 Okay to restart warfarin per general surgery ID: Rocío glabrata fungemia 04/08 On empiric abx (piperacillin/tazobactam, Micafungin) Monitor for signs of infections ( fever, WBC) WBC is trending down. Follow up BC 04/08: [place] Glabrata Seen by Optho- No evidence of endophthalmitis C-diff PCR negative ID is following MSK: Elevated BMI Osteoporosis/osteoarthritis Lumbar radiculopathy Physical therapy evaluate and treat Weight loss encouraged Access -Utilize peripheral IV. Prophylaxis -GI -pantoprazole -DVT-SCD/pharmacological prophylaxis- Heparin dip Follow up o labs Level 2 follow-up
[2018-04-18] MEDS: Pantoprazole Inj 40 MG Vial IV.PUSH SCH (11:20)
[2018-04-18 12:09] LABS: INR 1.4 Ratio; Prothrombin Time 14.6 sec (9.8-11.6)
--- NOTE | 2018-04-18 15:05 | P.PNCV ---
- Note Subjective/Hospital Course: 77/ female initially seen on 03/13/18 in [facility] office with Dr Warner, hx of progressive SOB over past few months . Known hx of CAD previous PCI's , ECHO revealed severe . Cardiac cath revealed multivessel disease PMH: Afib, Aortic stenosis, Asthma, CAD (coronary artery disease), CHF ( congestive heart failure), HLD (hyperlipidemia), HTN (hypertension) Hiatal hernia, Hypothyroid, LBBB (left bundle branch block), Mitral regurgitation, Myocardial infarct, Sleep apnea, TIA (transient ischemic attack) UTI (urinary tract infection) 04/04 pt electively admitted for surgery PREPROCEDURE DIAGNOSES 1. Severe Multi Vessel Coronary Artery Disease. 2. Severe aortic stenosis 3. Atrial fibrillation status post ablation POSTPROCEDURE DIAGNOSES 1. Severe Multi Vessel Coronary Artery Disease. 2. Severe aortic stenosis 3. Atrial fibrillation status post ablation 4. Heavily calcified ascending aorta SURGICAL PROCEDURE 1. Clampless off-pump Coronary Artery Bypass Grafting x 2 with Left Internal Mammary Artery (ZAPATA) to Left Anterior Descending (LAD), reverse saphenous vein graft to obtuse Marginal branch of the left Circumflex artery 2. Left leg Endoscopic Vein [place] 3. Left atrial appendage excision pt extubated after surgery crystalloid 2300cc, 1500cc EBL, 750cc cell saver 04/05 pt up in chair ECG with some mild global st elevation / pericarditis + rub, no pressors , stable for transfer, resume BB will need to resume coumadin when chest tubes out 04/06 chest tube dc without difficultly pt went into afib RVR last night and this am received 2nd bolus of amiodarone / po amiodarone increased will resume coumadin / this pm goal 2.5 / followed by Dr Menendez at home 04/07 pt was transferred back to CVICU yesterday became bradycardic / hypotensive / despite IV fluids calcium chloride / required Dopamine gtt / remains in afib rate now 90's , BP improved discussed with Dr Warner/ will consult cardiology regarding cardiac meds start lovenox and coumadin/ dc when INR > 2.0 dc fem line / consult PT / observe in CVICU today 04/08 Remains in atrial fibrillation with rapid ventricular response heart rate in the 120s Overnight events noted she received diltiazem, digoxin and Lopressor for heart rate with resultant hypotension requiring Dayday-Synephrine which is presently being weaned. Remains somewhat labile with her blood pressure Had echo this morning. Awaiting results Renal function worsening. Will consult nephrology. Likely secondary to hypoperfusion If ventricular function is okay, will give gentle hydration - Preoperative Diagnosis (1) Pneumoperitoneum (2) Paraesophageal hernia - Postoperative Diagnosis (1) Pneumoperitoneum (2) Paraesophageal hernia (3) Gastric ulcer, acute with perforation Date of procedure: 04/08/18 Procedure: Diagnostic laparoscopy Laparoscopic partial reduction of paraesophageal hernia Laparoscopic wedge resection of greater curvature of stomach 04/09 Operative findings noted Remains intubated and mechanically ventilated On Levophed for hemodynamic support. Weaning as tolerated Greatly appreciate Dr. Craig's input and assistance Renal function improving. Appreciate Dr. Holliday's input 04/10 remains sedated on vent 40% Fi02 SVV 17, CO 5.2/2.7 on Levo gtt at 2 mcq, in afib rate 110 creatinine improving left OANH drain 30cc/ 12 hrs, right OANH drain 10cc/ 12hr some drainage from prior chest tubes sites/ will dc prevena dressing 04/11 pt off all pressors , remains on 40% fi02 only on low dose fentanly for pain , awake follows commands, moves all extremities NA improving , creatinine improving, + hypoactive bowel sounds DC CVC line today, ok for Lovenox or Heparin SQ consult PT ROM 04/12 s/p right thoracentesis yesterday, removed 550cc bloody fluid remains on vent 40% awake , following commands, worsening leukocytosis cultures pending / ID following on Heparin gtt, rate improved 04/13 Clinically and hemodynamically stable. In atrial fibrillation with rate control. On heparin drip WBC continues to rise. Appreciate ID input and involvement Incentive spirometry and physical therapy as tolerated 04/14 Doing better. Hemodynamically stable Persistent leukocytosis. On antibiotics per ID Planned initiation of p.o. intake by general surgery 04/15 Clinically stable White count continues to rise. On antifungals and antimicrobials Remains in A. fib with rate control 04/16 Clinically better Tolerating p.o. intake WBC slightly improved 04/17 remains very weak , requires 2 person assist no pressors WBC count improving Afib with rate controlled/ on Heparin gtt/ ok for lovenox instead of Heparin per [facility] if needed eval for LTAC by case management tolerating full liquid diet 11/13 still weak, plan for discharge to LTAC when cleared by consultants still has WBC 24K, no fevers , recheck UA, then dc ernandez cath / antibiotics per ID ? recheck CT abdomen , OANH drains out start coumadin , then dc heparin gtt check CXR in am / pulm toileting Objective: Vital Signs - 24 hr 04/17/18 15:00 04/17/18 15:51 04/17/18 18:57 Temperature 98.1 F Pulse Rate 87 80 Respiratory Rate 18 18 18 Blood Pressure 133/64 Pulse Oximetry 95 04/17/18 19:00 04/17/18 20:49 04/17/18 23:00 Temperature 98.3 F 97.9 F Pulse Rate 89 75 86 Respiratory Rate 22 18 Blood Pressure 128/95 H 138/66 Pulse Oximetry 98 98 98 04/18/18 03:00 04/18/18 03:50 04/18/18 04:00 Temperature 98.2 F Pulse Rate 91 H 89 Respiratory Rate 24 20 Blood Pressure 146/77 H Pulse Oximetry 99 99 04/18/18 07:00 04/18/18 07:41 04/18/18 09:45 Temperature 98.3 F Pulse Rate 81 67 Respiratory Rate 20 19 Blood Pressure 121/75 Pulse Oximetry 999 H 99 98 04/18/18 11:00 Temperature 97.8 F Pulse Rate 72 Respiratory Rate 22 Blood Pressure 121/68 Pulse Oximetry 98 GENERAL: A&O x 3 SKIN: Warm and dry. sternal incision intact and well approximated , abdominal incisions intact and well approximated HEAD: Normocephalic. EYES: No scleral icterus. No injection or drainage. NECK: Supple, trachea midline. No JVD or lymphadenopathy. CARDIOVASCULAR:irregular rate and rhythm general edema 3/6 SM RESPIRATORY: Breath sounds equal bilaterally. diminished in bases No accessory muscle use. GASTROINTESTINAL: Abdomen soft, non-tender, nondistended. obese + bowel sounds MUSCULOSKELETAL: No cyanosis, or edema. BACK: Nontender without obvious deformity. No CVA tenderness. Labs: Laboratory Results - last 12 hr 04/18/18 04/18/18 04/18/18 04:20 05:22 06:23 WBC 24.6 H RBC 3.37 L Hgb 9.8 L Hct 30.6 L MCV 90.8 MCH 29.2 MCHC 32.2 RDW 15.9 Plt Count 413 MPV 9.2 Neut % (Auto) 90.3 H Lymph % (Auto) 4.7 L [place] % (Auto) 4.0 Eos % (Auto) 0.6 Baso % (Auto) 0.4 Neut # (Auto) 22.2 H Lymph # (Auto) 1.2 [place] # (Auto) 1.0 H Eos # (Auto) 0.2 Baso # (Auto) 0.1 WBC Differential . Differential Comment Auto diff final PT INR APTT Puncture Site Right radial Patient Temperature 98.6 O2 Saturation 95 ABG pH 7.45 H ABG pCO2 46 H ABG pO2 94 ABG HCO3 31 H ABG O2 Content 12.2 ABG Base Excess 6.7 H ABG Methemoglobin 1.4 Adrien Test Present Hemoglobin 9.0 L Carboxyhemoglobin 1.2 O2 Delivery Device Nasal cannula Liter Flow 2.00 Critical Value No Sodium Potassium Chloride Carbon Dioxide Anion Gap BUN Creatinine Estimated GFR POC Glucose 153 H Random Glucose Calcium Total Bilirubin AST ALT Alkaline Phosphatase Total Protein Albumin 04/18/18 04/18/18 04/18/18 06:23 06:23 06:23 WBC RBC Hgb Hct MCV MCH MCHC RDW Plt Count MPV Neut % (Auto) Lymph % (Auto) [place] % (Auto) Eos % (Auto) Baso % (Auto) Neut # (Auto) Lymph # (Auto) [place] # (Auto) Eos # (Auto) Baso # (Auto) WBC Differential Differential Comment PT 14.6 H INR 1.4 APTT 49.5 H D Puncture Site Patient Temperature O2 Saturation ABG pH ABG pCO2 ABG pO2 ABG HCO3 ABG O2 Content ABG Base Excess ABG Methemoglobin Adrien Test Hemoglobin Carboxyhemoglobin O2 Delivery Device Liter Flow Critical Value Sodium 143 Potassium 3.4 L Chloride 104 Carbon Dioxide 32.2 H Anion Gap 7 BUN 18 Creatinine 0.78 Estimated GFR 71 L POC Glucose Random Glucose 116 H Calcium 8.0 L Total Bilirubin 0.4 AST 64 H ALT 53 Alkaline Phosphatase 100 Total Protein 6.0 L Albumin 1.9 L 04/18/18 04/18/18 07:30 11:06 WBC RBC Hgb Hct MCV MCH MCHC RDW Plt Count MPV Neut % (Auto) Lymph % (Auto) [place] % (Auto) Eos % (Auto) Baso % (Auto) Neut # (Auto) Lymph # (Auto) [place] # (Auto) Eos # (Auto) Baso # (Auto) WBC Differential Differential Comment PT INR APTT Puncture Site Patient Temperature O2 Saturation ABG pH ABG pCO2 ABG pO2 ABG HCO3 ABG O2 Content ABG Base Excess ABG Methemoglobin Adrien Test Hemoglobin Carboxyhemoglobin O2 Delivery Device Liter Flow Critical Value Sodium Potassium Chloride Carbon Dioxide Anion Gap BUN Creatinine Estimated GFR POC Glucose 120 H 120 H Random Glucose Calcium Total Bilirubin AST ALT Alkaline Phosphatase Total Protein Albumin Result Diagrams: 04/18/18 06:23 04/18/18 06:23 Telemetry: afib rate controlled occasional safia tachy - Plan (1) Severe aortic stenosis Plan: will need planned TAVR after discharge (2) Coronary artery disease involving [place] coronary artery Plan: ASA, verapamil OOB / PT/ OT pulm toileting resume home med/ will need family to bring in discharge planning to LTAC when cleared by consultants and WBC count improved (3) Congestive heart failure (CHF) Plan: gentle diuresis (4) Atrial fibrillation Plan: s/p atrial appendage excision resume Coumadin / when cleared by general surgery on heparin gtt and verapamil (5) COPD (chronic obstructive pulmonary disease) Plan: nebs ezpap and acapella (6) S/P CABG (coronary artery bypass graft) Plan: ASA, resume home med crestor pulm toileting , nebs ezpap, acapella OOB ambulate eval for LTAC at discharge eval for transfer to stepdown, when cleared by CCM, will need to be close to nurses station vs transfer to LTAC from CVICU (7) S/P exploratory laparotomy Plan: general surgery following (10) Respiratory failure requiring intubation Plan: / resolved (11) Leukocytosis Plan: hernandes -culture ABX per ID WBC 24K on antibiotics (12) Acute renal failure Plan: nephro following (14) Fungemia Plan: on micafungin ID following
[2018-04-18] MEDS: Micafungin Inj 150 MG in Sodium Chlor 0.9% Inj 100 ML IV.SIG SCH (15:10)
[2018-04-18] MEDS: Piperacil/Tazo 4.5 GM Premix 4.5 GM/100 ML BAG IV.SIG SCH ×2 (15:26→21:12)
--- NOTE | 2018-04-18 17:24 | P.PNWCN ---
Wound Care Nurse Consult Description: Received Pressure ulcer consult from Doctor Schroeder for wound to sacral area Communicated with: VISHNU NEAL and Doctor Schroeder Recommendation: 1.Please cleanse patient's buttock area gently with Remedy barrier wipes, Cleanse open wounds with normal saline and pat dry. Apply Calazime skin protectant paste to denuded skin. [place] eschar on open wounds with Cavilon skin barrier film . Leave wounds open to air,while patient is having loose continuous stools 2.When patient stops having continuous loose stools, patient could benefit from Santyl ointment to wound beds covered with Xeroform cut to fit the shape of the wounds avoiding intact surrounding skin and covered with bordered gauze, that can be changed daily. 3. Turn patient every 2 hours and PRN from L side to R side comfort and offloading of pressure from maggie prominences. 4. Limit use of layers under patient, Do not use cotton pads on low airloss mattress, Use one ultra sorb pad and flat turn sheet. 5. Patient will need to be placed on low airloss mattress/ bed when it arrives. Wound/Pressure Injury - Wound Right Buttocks Wound Staging: Unstageable Wound Type: Pressure Injury Is This a Chronic Wound: No Requested from Provider a Wound Care Consult: Yes Length (cm): 8 Width (cm): 6 Depth (cm): 0 (eschar) Wound Bed Appearance: Necrotic, Red Wound Bed Appearance: Wound bed presents with ~ 60% island of eschar with ~40% pink tissue toward edges Surrounding Tissue Appearance: [place] (denuded peeling skin) Surrounding Tissue Temperature: Cool Drainage Description: Serosanguinous Drainage Amount: Scant Drainage Odor: No Odor Dressing Status: Open to Air Cleansing Solution: Saline Wound Margin Description: Wound margins are well defined Left Buttocks Wound Staging: Unstageable Wound Assessment: Ongoing Wound Type: Pressure Injury Is This a Chronic Wound: No Requested from Provider a Wound Care Consult: Yes (Wound care inpatient saw patient today) Length (cm): 2 Width (cm): 3 Depth (cm): 0 (slough) Wound Bed Appearance: [place], Yellow Wound Bed Appearance: Wound bed present with ~ 60% yellow adherent slough and ~40% pink tisse Surrounding Tissue Appearance: [place] Surrounding Tissue Temperature: Cool Drainage Description: Serosanguinous Drainage Amount: Scant Drainage Odor: No Odor Dressing Status: Open to Air Cleansing Solution: Saline Wound Margin Description: Wound margins are well defined and open - Additional Information Patient seen today in CVICU for possible pressure ulcer to sacral area. Patient was assessed with card writer hand and RN [facility] CV[facility]. Patient was turned with maximum two person assist toward the L side for wound assessment.Patient is laying on Libia protevo bed with two cotton underpads staggered under her. Patient noted with unstageable pressure injuries on each buttock. Wound one is located on the R buttock and appears to have a mixed etiology of moisture, friction, and pressure. Wound has an oval shape with peeling denuded skin to periwound. Wound measurements and full description are noted above. Wound presents with ~60% island of eschar and ~40% pink tissue toward the edges. Wound has no active drainage, or odor.Scant amount of sero-sanguinous drainage is observed on cotton underpad. Wound two is located on the L buttock, and is the smaller of the two wounds. Wound presents with ~60% dry yellow adherent slough and ~40% pink tissue. Wound also has no active drainage or odor. Scant amount of sero-sanguinous drainage is observed on cotton under pad. Wound also presents with a mixed etiology of moisture, pressure, and friction. Full wound description with measurements are noted above. Both wounds were cleansed with normal saline and left open to air at this time. Patient is having constant loose stools, which makes dressing wound difficult, patient is contraindicated for fecal management system.Removed cotton underpads and placed one ultra sorb under patient.Applied skin barrier film to eschar and patient was positioned off bottom. Recommendations for wound care are noted above.
[2018-04-18 18:14] LABS: Bilirubin,Urine Negative (Negative); Clarity,Urine Clear (Clear); Color,Urine Yellow (Yellw/Straw); Glucose,Urine (UA) Negative (Negative); Hyaline Casts,Urine 8 /lpf (0-3); Leukocyte Esterase,Urine Negative (Negative); Mucus,Urine Few /lpf (Occasional); Nitrite,Urine Negative (Negative); Specific Gravity,Urine 1.012 (1.002-1.035); Squamous Epithelial Cell,Urine <1 /hpf (0-5)
--- NOTE | 2018-04-18 22:34 | P.PNCA ---
Subjective Interval history: No events overnight Still weak, trouble transferring Medications and Allergies Active Medications: Active Medications Al Hydroxide/Mg Hydroxide (Milk Of Magnesia Liq) 30 ml PO DAILY PRN PRN Reason: CONSTIPATION Albuterol (Duoneb Neb (Prn)) 1 ampul NEB Q2HR NEB PRN PRN Reason: WHEEZING Last Admin: 04/17/18 01:14 Dose: 1 ampul Albuterol (Duoneb Neb (Jose)) 1 ampul NEB Q6HR NEB JOSE Last Admin: 04/18/18 20:53 Dose: 1 ampul Alprazolam (Xanax) 0.25 mg PO Q8H PRN PRN Reason: ANXIETY Last Admin: 04/18/18 21:12 Dose: 0.25 mg Aspirin (Aspirin Chew) 81 mg PO DAILY [facility] Last Admin: 04/18/18 08:01 Dose: 81 mg Bisacodyl (Dulcolax Supp) 10 mg RECTAL PRN PRN PRN Reason: SEE LABEL COMMENTS Dextrose (D50w Vial) 50 ml IV.PUSH UNSCH PRN PRN Reason: PER HYPOGLYCEMIA PROTOCOL Last Admin: 04/12/18 05:40 Dose: 25 ml Docusate Sodium (Colace Liq) 100 mg PO BID [facility] Last Admin: 04/18/18 21:06 Dose: Not Given Furosemide (Lasix Inj) 40 mg IV.PUSH DAILY [facility] Last Admin: 04/18/18 08:01 Dose: 40 mg Glucagon (Glucagon Inj) 1 mg OTHER UNSCH PRN PRN Reason: for Hypoglycemia Protocol Heparin Sodium (Porcine) (Heparin Inj) 5,000 units IV.PUSH UNSCH PRN PRN Reason: aPTT < 25 Heparin Sodium (Porcine) (Heparin Inj) 2,500 units IV.PUSH UNSCH PRN PRN Reason: aPTT 25-39 Last Admin: 04/17/18 21:59 Dose: 2,500 units Heparin Sodium/Dextrose (Heparin/D5w 25,000 U/250 Ml) 25,000 unit in 250 mls @ 17 mls/hr IV.CONT TITRATE PRN; Protocol PRN Reason: Per Protocol Last Admin: 04/18/18 05:13 Dose: 1,000 units/hr, 10 mls/hr Micafungin Sodium 150 mg/ (Sodium Chloride) 100 mls @ 100 mls/hr IV.SIG Q24H [facility] Last Infusion: 04/18/18 16:10 Dose: Infused Acetaminophen (Ofirmev Inj) 1,000 mg in 100 mls @ 400 mls/hr IV.SIG Q6H PRN PRN Reason: PAIN SCALE 1 TO 10 Last Infusion: 04/18/18 06:36 Dose: 400 mls/hr Piperacillin/Tazobactam/Dextrose (Zosyn 4.5 Gm Premix) 4.5 gm in 100 mls @ 200 mls/hr IV.SIG Q6H JOSE Last Admin: 04/18/18 21:12 Dose: 200 mls/hr Insulin Aspart (Novolog Insulin Correctional Sugar Inj) 0 unit SQ Q4HR [facility]; Protocol Last Admin: 04/18/18 21:05 Dose: Not Given Levothyroxine Sodium (Synthroid) 100 mcg PO DAILY@0600 [facility] Last Admin: 04/18/18 05:15 Dose: 100 mcg Miscellaneous (Pill Splitter) 1 each OTHER UNSCH PRN PRN Reason: SEE LABEL COMMENTS Multivitamins/Minerals (Theragran-M) 1 tab PO DAILY [facility] Last Admin: 04/18/18 08:02 Dose: 1 tab Ondansetron HCl (Zofran Inj) 4 mg IV.PUSH Q6H PRN PRN Reason: NAUSEA OR VOMITING Last Admin: 04/17/18 21:58 Dose: 4 mg Pantoprazole Sodium (Protonix Inj) 40 mg IV.PUSH Q12H [facility] Last Admin: 04/18/18 11:20 Dose: 40 mg Paroxetine HCl (Paxil) 10 mg PO DAILY [facility] Last Admin: 04/18/18 08:01 Dose: 10 mg Patient's Own: ( Rosuvastatin [ Rosuvastatin] 20 Mg) 0 each PO DAILY [facility] Polyethylene Glycol (Miralax) 17 gm PO DAILY [facility] Last Admin: 04/18/18 08:02 Dose: Not Given Potassium Bicarb/Potassium Chloride (K-Lyte Cl Eff) 50 meq PO UNSCH PRN PRN Reason: For Potassium 3.3 - 3.5 mEq/L Last Admin: 04/16/18 08:19 Dose: 50 meq Potassium Chloride (Klor-Con 10) 20 meq PO DAILY [facility] Sennosides (Senokot) 8.6 mg PO HS PRN PRN Reason: CONSTIPATION Sodium Biphosphate/Sodium Phosphate (Fleets Enema (Adult)) 118 ml RECTAL UNSCH PRN PRN Reason: SEE LABEL COMMENTS Sodium Chloride (Ns Flush) 2 ml IV.FLUSH BID [facility] Last Admin: 04/18/18 21:08 Dose: 2 ml Sodium Chloride (Ns Flush) 2 ml IV.FLUSH PRN PRN PRN Reason: FLUSH AFTER USING IV ACCESS Verapamil HCl (Isoptin) 40 mg PO TID [facility] Last Admin: 04/18/18 17:28 Dose: 40 mg Warfarin Sodium (Coumadin) 2 mg PO DAILY@1600 [facility] Last Admin: 04/18/18 16:02 Dose: 2 mg Allergies Allergy/AdvReac Type Severity Reaction Status Date / Time atorvastatin AdvReac Hypotension Verified 04/04/18 06:21 simvastatin AdvReac Hypotension Verified 04/04/18 06:21 Home Medications Medication Instructions Recorded Confirmed Type ciprofloxacin HCl [Cipro] 500 mg PO Q12H 02/16/18 04/04/18 History coenzyme Q10 [Co Q-10] 10 mg PO TID 02/16/18 04/04/18 History furosemide 40 mg PO BID 02/16/18 04/04/18 History losartan 50 mg PO DAILY 02/16/18 04/04/18 History pantoprazole 40 mg PO DAILY 02/16/18 04/04/18 History paroxetine HCl 10 mg PO DAILY 02/16/18 04/04/18 History potassium chloride [K-Tab] 10 meq PO DAILY 02/16/18 04/04/18 History ranitidine HCl 150 mg PO BID 02/16/18 04/04/18 History rosuvastatin 20 mg PO DAILY 02/16/18 04/04/18 History verapamil 180 mg PO DAILY 02/16/18 04/04/18 History warfarin 5 mg PO DAILY 02/16/18 04/04/18 History aspirin 81 mg PO DAILY 03/09/18 04/04/18 History nitroglycerin 0.4 mg SUBLINGUAL Q5-15M PRN 03/09/18 04/04/18 History Physical Exam Vital signs: Vital Signs 04/17/18 23:00 04/18/18 03:00 04/18/18 03:50 Temperature 97.9 F 98.2 F Pulse Rate 86 91 H 89 Respiratory Rate 24 20 Blood Pressure 138/66 146/77 H Pulse Oximetry 98 99 04/18/18 04:00 04/18/18 07:00 04/18/18 07:41 Temperature 98.3 F Pulse Rate 81 Respiratory Rate 20 Blood Pressure 121/75 Pulse Oximetry 99 999 H 99 04/18/18 09:45 04/18/18 11:00 04/18/18 13:00 Temperature 97.8 F Pulse Rate 67 72 Respiratory Rate 19 22 Blood Pressure 121/68 Pulse Oximetry 98 98 98 04/18/18 15:00 04/18/18 15:24 04/18/18 17:00 Temperature 98.2 F Pulse Rate 91 H 75 Respiratory Rate 24 17 Blood Pressure 146/77 H Pulse Oximetry 99 96 04/18/18 19:00 04/18/18 20:57 Temperature 97.1 F L Pulse Rate 91 H 82 Respiratory Rate 24 18 Blood Pressure 156/63 H Pulse Oximetry 99 95 Intake & Output 04/18/18 04/18/18 04/19/18 06:59 18:59 06:59 Intake Total 1360 / 1360 1300 / 1300 Output Total 1160 / 1160 Balance 1360 / 1360 140 / 140 Weight 92 kg Intake: IV 450 / 450 400 / 400 Heparin/D5W 25,000 U/250 mL 25, 250 / 250 000 unit In 250 ml @ 1,700 UNITS/HR 17 mls/hr IV.CONT TITRATE PRN Rx#:[id number] Mycamine Inj 150 MG In NS Inj 100 / 100 100 ML @ 100 mls/hr IV.SIG Q24H JO[facility] Rx#:[id number] Zosyn 3.375 GM Premix 50 ML @ 100 / 100 100 / 100 200 mls/hr IV.SIG Q6H JOSE Rx#: [id number] Zosyn 4.5 GM Premix 4.5 gm In 100 / 100 100 ml @ 200 mls/hr IV.SIG Q6H JO[facility] Rx#:[id number] KCl 20 mEq Premix Inj 20 meq In 100 / 100 100 / 100 100 ml @ 50 mls/hr IV.SIG Q2H PRN Rx#:[id number] Oral 430 / 430 900 / 900 Oral Supplement 480 / 480 Output: Urine 900 / 900 Urine Amount (Catheter) 260 / 260 Indwelling Urethral Catheter 260 / 260 Other: Date of Last Bowel Movement 04/18/18 04/18/18 04/18/18 # Bowel Movements 4 3 # Incontinent Bowel Movements 4 Narrative: GENERAL: NAD SKIN: Warm and dry. HEAD: Atraumatic. Normocephalic. EYES: Pupils equal and round. No scleral icterus. No injection or drainage. ENT: No nasal bleeding or discharge. Mucous membranes pink and moist. NECK: Trachea midline. No JVD. CARDIOVASCULAR: Irregularly irregular RESPIRATORY: No accessory muscle use. Decreased breath sounds bilaterally GASTROINTESTINAL: Abdomen soft, non-tender, nondistended. Hepatic and splenic margins not palpable. MUSCULOSKELETAL: Extremities without clubbing, cyanosis, or edema. No obvious deformities. NEUROLOGICAL: Awake and alert. No obvious cranial nerve deficits. Motor grossly within normal limits. Five out of 5 muscle strength in the arms and legs. Normal speech. PSYCHIATRIC: Appropriate mood and affect; insight and judgment normal. - Urinary Catheter Management Indwelling Temp Sensing Catheter Cath placed during this visit: yes Urethral indwelling: No Reason for continuing: Hourly intake/output Insertion date: 04/04/18 Insertion time: 07:52 Indwelling Urethral Catheter Cath placed during this visit: yes, but has since been removed by the nurse Reason for continuing: Not indwelling catheter Insertion date: 04/08/18 Insertion time: 16:51 Removal date: 04/18/18 Removal time: 11:04 Results 04/18/18 06:23 04/18/18 06:23 Cardiac Enzymes 04/17/18 04/18/18 Range/Units 10:42 06:23 AST 61 H 64 H (15-37) U/L Coagulation 04/17/18 04/18/18 04/18/18 Range/Units 19:48 06:23 06:23 PT 14.6 H (9.8-11.6) sec APTT 35.2 H D 49.5 H D (23.4-31.7) sec CBC 04/17/18 04/18/18 Range/Units 06:30 06:23 WBC 24.9 H 24.6 H (4.0-11.0) th/mm3 RBC 3.19 L 3.37 L (4.00-5.30) mil/mm3 Hgb 9.4 L 9.8 L (11.6-15.3) gm/dL Hct 28.5 L 30.6 L (35.0-46.0) % Plt Count 354 D 413 (150-450) th/mm3 Neut # (Auto) 22.7 H 22.2 H (1.8-7.7) th/mm3 Lymph # (Auto) 1.2 1.2 (1.0-4.8) th/mm3 [place] # (Auto) 0.9 1.0 H (0.0-0.9) th/mm3 Eos # (Auto) 0.1 0.2 (0.0-0.4) th/mm3 Baso # (Auto) 0.0 0.1 (0.0-0.2) th/mm3 Comprehensive Metabolic Panel 04/17/18 04/17/18 04/18/18 Range/Units 10:42 21:10 06:23 Sodium 145 143 (136-145) meq/L Potassium 3.1 L 3.0 L 3.4 L (3.5-5.1) meq/L Chloride 105 104 (98-107) meq/L Carbon Dioxide 32.7 H 32.2 H (21.0-32.0) meq/L BUN 16 18 (7-18) mg/dL Creatinine 0.71 0.78 (0.50-1.00) mg/dL Calcium 7.7 L 8.0 L (8.5-10.1) mg/dL AST 61 H 64 H (15-37) U/L ALT 51 53 (10-53) U/L Alkaline Phosphatase 93 100 (45-117) U/L Total Protein 5.7 L 6.0 L (6.4-8.2) g/dL Albumin 1.7 L 1.9 L (3.4-5.0) g/dL Intake and Output 04/18/18 04/18/18 04/18/18 06:59 14:59 22:59 Intake Total 1260 / 1260 200 / 200 1100 / 1100 Output Total 1160 / 1160 Balance 1260 / 1260 200 / 200 -60 / -60 Intake: IV 350 / 350 200 / 200 200 / 200 Heparin/D5W 25,000 U/250 mL 25, 250 / 250 000 unit In 250 ml @ 1,700 UNITS/HR 17 mls/hr IV.CONT TITRATE PRN Rx#:[id number] Mycamine Inj 150 MG In NS Inj 100 / 100 100 ML @ 100 mls/hr IV.SIG Q24H [facility] Rx#:[id number] Zosyn 3.375 GM Premix 50 ML @ 100 / 100 200 mls/hr IV.SIG Q6H JOSE Rx#: [id number] Zosyn 4.5 GM Premix 4.5 gm In 100 / 100 100 ml @ 200 mls/hr IV.SIG Q6H JOSE Rx#:[id number] KCl 20 mEq Premix Inj 20 meq In 100 / 100 100 / 100 100 ml @ 50 mls/hr IV.SIG Q2H PRN Rx#:[id number] Oral 430 / 430 900 / 900 Oral Supplement 480 / 480 Output: Urine 900 / 900 Urine Amount (Catheter) 260 / 260 Indwelling Urethral Catheter 260 / 260 Other: Date of Last Bowel Movement 04/18/18 04/18/18 04/18/18 # Bowel Movements 4 3 # Incontinent Bowel Movements 4 Weight 92 kg - Imaging and Cardiology Imaging: Impressions Chest CT 04/16/18 00:00 CONCLUSION: 1. Bilateral lower lobe consolidation/atelectasis and left greater than right pleural effusions. 2. Prominent hiatal hernia again noted. 3. Postsurgical findings in the region of the hiatal hernia and upper abdomen with surgical drains again in place. Elongated 4 x 2 cm fluid density in the left upper quadrant abutting the lateral margin of the stomach, nonspecific. Chest X-Ray 04/17/18 06:00 CONCLUSION: No significant interval change. Persistent left lower lobe consolidation versus atelectasis and bilateral hazy pulmonary opacity with lower lung zone predominance. Assessment and Plan - Assessment (1) Severe aortic stenosis Code(s): I35.0 - Nonrheumatic aortic (valve) stenosis Status: Chronic (2) Coronary artery disease involving [place] coronary artery Code(s): I25.10 - Atherosclerotic heart disease of [place] coronary artery without angina pectoris Status: Acute (3) Congestive heart failure (CHF) Code(s): I50.9 - Heart failure, unspecified Status: Chronic (4) Atrial fibrillation Code(s): I48.91 - Unspecified atrial fibrillation Status: Chronic (5) S/P CABG (coronary artery bypass graft) Code(s): Z95.1 - Presence of aortocoronary bypass graft Status: Acute - Plan 1) CAD s/p CABGx2 2) Residual Possible TAVR in the future Not a BAV candidate at this time with at least moderate AR 3) AFib Cardioverted before abdominal surgery Back in AFib Heart rates stable after digoxin load Now on Verapamil controlling rates Start on heparin drip, will have to restart Coumadin at some point 4) Gastric ulcer/perfs Per surgery
[2018-04-19] MEDS: Pantoprazole Inj 40 MG Vial IV.PUSH SCH ×2 (02:00→11:13)
[2018-04-19] MEDS: Piperacil/Tazo 4.5 GM Premix 4.5 GM/100 ML BAG IV.SIG SCH ×3 (02:00→15:38)
[2018-04-19 05:41] LABS: Baso # (Auto) 0.1 th/mm3 (0.0-0.2); Baso % (Auto) 0.4 % (0.0-2.0); Eos # (Auto) 0.4 th/mm3 (0.0-0.4); Eos % (Auto) 1.5 % (0.0-4.0); Hematocrit 28.7 % (35.0-46.0); Hemoglobin 9.4 gm/dL (11.6-15.3); Lymph # (Auto) 1.2 th/mm3 (1.0-4.8); Mean Corpuscular HGB Conc 32.7 % (32.0-36.0); Mean Corpuscular Hemoglobin 29.3 pg (27.0-34.0); Mean Corpuscular Volume 89.6 fL (80.0-100.0); Mean Platelet Volume 9.2 fL (7.0-11.0); Mono # (Auto) 0.9 th/mm3 (0.0-0.9); Mono % (Auto) 3.8 % (0.0-8.0); Neut # (Auto) 21.3 th/mm3 (1.8-7.7); Neut % (Auto) 89.3 % (16.0-70.0); Platelet Count 495 th/mm3 (150-450); Red Cell Distribution Width 16.2 % (11.6-17.2); White Blood Count 23.9 th/mm3 (4.0-11.0)
[2018-04-19 06:00] LABS: Activated Partial Thrombo Time 51.3 sec (23.4-31.7); INR 1.3 Ratio; Prothrombin Time 13.4 sec (9.8-11.6)
[2018-04-19 06:10] LABS: Anion Gap 10 meq/L (5-15); Aspartate Aminotransferase 63 U/L (15-37); Blood Urea Nitrogen 16 mg/dL (7-18); Calcium 8.2 mg/dL (8.5-10.1); Carbon Dioxide 34.3 meq/L (21.0-32.0); Chloride 99 meq/L (98-107); Glomerular Filtration Rate 74 mL/min (>89); Glucose,Random 66 mg/dL (74-106); Magnesium 2.1 mg/dL (1.5-2.5); Potassium 3.1 meq/L (3.5-5.1); Sodium 143 meq/L (136-145)
[2018-04-19 06:15] LABS: Alanine Aminotransferase 53 U/L (10-53); Alkaline Phosphatase 86 U/L (45-117); Total Protein 6.4 g/dL (6.4-8.2)
[2018-04-19] MEDS: Insulin NovoLOG Aspart Correctional Sugar Inj SQ SCH ×5 (06:24→17:47)
[2018-04-19] MEDS: Heparin Drip 25,000 UNIT/250 ML BAG IV.CONT PRN (06:25)
[2018-04-19] MEDS: Levothyroxine 100 MCG Tablet PO SCH (06:29)
[2018-04-19] MEDS: Multivitamin/Minerals Therapeutic Tablet PO SCH (08:41)
[2018-04-19] MEDS: Docusate Sodium Liq 100 MG/10 ML UDC PO SCH (08:41)
[2018-04-19] MEDS: Polyethylene Glycol 3350 17 GM Packet PO SCH (08:41)
[2018-04-19] MEDS ORDERED: Acetaminophen 325 MG Tablet PO PRN (09:31)
[2018-04-19] MEDS ORDERED: Polyethylene Glycol 3350 17 GM Packet PO PRN (09:31)
[2018-04-19] MEDS ORDERED: ALPRAZolam 0.25 MG Tablet PO PRN (09:31)
[2018-04-19] MEDS ORDERED: Potassium Chloride 25 MEQ Effervescent Tablet PO ONE (10:40)
--- NOTE | 2018-04-19 11:02 | P.PNID ---
Subjective Remarks: ID Xcover for WBC still @ 23 K today denies abd pain c/o diarrhea,c.diff neg 2/2 + takes PO Overnight events reviewed. No fevers No rash seen by career services manager : no fungal endophthalmitis seen on exam. off pressors BC growing C. glabrata no more + BC No central lines Methylene blue leak test is negative on 04/14 Antibiotics: micafungin fluconazol zosyn Lines: Lines ok Past Medical History: reviewed Allergies/Adverse Reactions: Allergies atorvastatin Adverse Reaction (Verified 04/04/18 06:21) Hypotension simvastatin Adverse Reaction (Verified 04/04/18 06:21) Hypotension Objective Vital Signs 04/18/18 11:00 04/18/18 13:00 04/18/18 15:00 Temperature 97.8 F 98.2 F Pulse Rate 72 91 H Respiratory Rate 22 24 Blood Pressure 121/68 146/77 H Pulse Oximetry 98 98 99 04/18/18 15:24 04/18/18 17:00 04/18/18 19:00 Temperature 97.1 F L Pulse Rate 75 91 H Respiratory Rate 17 24 Blood Pressure 156/63 H Pulse Oximetry 96 99 04/18/18 20:57 04/18/18 23:00 04/19/18 00:00 Temperature 96.9 F L Pulse Rate 82 92 H Respiratory Rate 18 20 Blood Pressure 139/67 Pulse Oximetry 95 94 L 96 04/19/18 03:00 04/19/18 04:04 04/19/18 07:00 Temperature 97.8 F 97.8 F Pulse Rate 83 77 79 Respiratory Rate 20 18 20 Blood Pressure 139/68 143/72 H Pulse Oximetry 94 L 98 04/19/18 10:29 Temperature Pulse Rate 86 Respiratory Rate 17 Blood Pressure Pulse Oximetry 95 Intake & Output 04/18/18 04/19/18 04/19/18 18:59 06:59 18:59 Intake Total 1300 / 1300 370 / 370 Output Total 1160 / 1160 100 / 100 Balance 140 / 140 270 / 270 Weight 92 kg Intake: IV 400 / 400 320 / 320 Heparin/D5W 25,000 U/250 mL 25, 120 / 120 000 unit In 250 ml @ 1,700 UNITS/HR 17 mls/hr IV.CONT TITRATE PRN Rx#:[id number] Mycamine Inj 150 MG In NS Inj 100 / 100 100 ML @ 100 mls/hr IV.SIG Q24H [facility] Rx#:[id number] Zosyn 3.375 GM Premix 50 ML @ 100 / 100 200 mls/hr IV.SIG Q6H [facility] Rx#: [id number] Zosyn 4.5 GM Premix 4.5 gm In 100 / 100 200 / 200 100 ml @ 200 mls/hr IV.SIG Q6H [facility] Rx#:[id number] KCl 20 mEq Premix Inj 20 meq In 100 / 100 100 ml @ 50 mls/hr IV.SIG Q2H PRN Rx#:[id number] Oral 900 / 900 50 / 50 Output: Urine 900 / 900 100 / 100 Urine Amount (Catheter) 260 / 260 Indwelling Urethral Catheter 260 / 260 Other: Date of Last Bowel Movement 04/18/18 04/18/18 04/19/18 # Bowel Movements 3 04/12/18 05:11 Blood - Peripheral Aerobic Blood Culture - Final No growth in 5 days 04/12/18 05:11 Blood - Peripheral Anaerobic Blood Culture - Final No growth in 5 days 04/12/18 05:25 Blood - Peripheral Aerobic Blood Culture - Final No growth in 5 days 04/12/18 05:25 Blood - Peripheral Anaerobic Blood Culture - Final No growth in 5 days Lab - Hematology Results 04/17/18 04/18/18 04/19/18 06:30 06:23 04:55 WBC 24.9 H 24.6 H 23.9 H RBC 3.19 L 3.37 L 3.20 L Hgb 9.4 L 9.8 L 9.4 L Hct 28.5 L 30.6 L 28.7 L MCV 89.4 90.8 89.6 MCH 29.6 29.2 29.3 MCHC 33.1 32.2 32.7 RDW 16.0 15.9 16.2 Plt Count 354 D 413 495 H MPV 9.5 9.2 9.2 Prelim Diff (Auto) Slide review pending Neut % (Auto) 91.1 H 90.3 H 89.3 H Lymph % (Auto) 4.7 L 4.7 L 5.0 L [place] % (Auto) 3.5 4.0 3.8 Eos % (Auto) 0.6 0.6 1.5 Baso % (Auto) 0.1 0.4 0.4 Neut # (Auto) 22.7 H 22.2 H 21.3 H Lymph # (Auto) 1.2 1.2 1.2 [place] # (Auto) 0.9 1.0 H 0.9 Eos # (Auto) 0.1 0.2 0.4 Baso # (Auto) 0.0 0.1 0.1 WBC Differential Manual diff final . . Seg Neuts % (Manual) 88 H Band Neuts % (Manual) 3 Lymphocytes % (Manual) 2 L Monocytes % (Manual) 5 Eosinophils % (Manual) 1 Plasma Cell % (Manual) 1 H Abs Neuts (Manual) 22.7 H Differential Comment Auto diff final Auto diff final Toxic Granulation 3+ H Platelet Estimate Normal Platelet Morphology Normal Lab - Chemistry Results 04/17/18 04/17/18 04/17/18 10:42 11:51 17:12 Sodium 145 Potassium 3.1 L Chloride 105 Carbon Dioxide 32.7 H Anion Gap 7 BUN 16 Creatinine 0.71 Estimated GFR 80 L POC Glucose 121 H 114 H Random Glucose 107 H Calcium 7.7 L Phosphorus 2.8 Magnesium 2.2 Total Bilirubin 0.3 AST 61 H ALT 51 Alkaline Phosphatase 93 Total Protein 5.7 L Albumin 1.7 L 04/17/18 04/17/18 04/18/18 21:10 22:50 05:22 Sodium Potassium 3.0 L Chloride Carbon Dioxide Anion Gap BUN Creatinine Estimated GFR POC Glucose 101 153 H Random Glucose Calcium Phosphorus Magnesium Total Bilirubin AST ALT Alkaline Phosphatase Total Protein Albumin 04/18/18 04/18/18 04/18/18 06:23 07:30 11:06 Sodium 143 Potassium 3.4 L Chloride 104 Carbon Dioxide 32.2 H Anion Gap 7 BUN 18 Creatinine 0.78 Estimated GFR 71 L POC Glucose 120 H 120 H Random Glucose 116 H Calcium 8.0 L Phosphorus Magnesium Total Bilirubin 0.4 AST 64 H ALT 53 Alkaline Phosphatase 100 Total Protein 6.0 L Albumin 1.9 L 04/18/18 04/18/18 04/18/18 16:00 20:50 23:59 Sodium Potassium Chloride Carbon Dioxide Anion Gap BUN Creatinine Estimated GFR POC Glucose 98 125 H 102 Random Glucose Calcium Phosphorus Magnesium Total Bilirubin AST ALT Alkaline Phosphatase Total Protein Albumin 04/19/18 04/19/18 04:55 05:52 Sodium 143 Potassium 3.1 L Chloride 99 Carbon Dioxide 34.3 H Anion Gap 10 BUN 16 Creatinine 0.76 Estimated GFR 74 L POC Glucose 80 Random Glucose 66 L Calcium 8.2 L Phosphorus 3.0 Magnesium 2.1 Total Bilirubin 0.6 AST 63 H ALT 53 Alkaline Phosphatase 86 Total Protein 6.4 Albumin 2.0 L Imaging: ITS Impressions Abdomen/Bladder Ultrasound 04/08/18 00:00 CONCLUSION: Kidneys within normal limits. Right pleural effusion noted. Chest Ultrasound 04/11/18 00:00 CONCLUSION: 1. Left pleural effusion and marked on the skin. Thoracentesis CT 04/11/18 00:00 CONCLUSION: 1. Uncomplicated CT-guided thoracentesis. Abdomen X-Ray 04/11/18 12:13 CONCLUSION: Nonspecific, nonobstructive bowel gas pattern which may represent a mild ileus or gastroenteritis. Abdomen/Pelvis CT 04/12/18 00:00 CONCLUSION: 1. The previously noted free air on the prior study has resolved. Patient is recently status post abdominal surgery. There are surgical drains in the upper abdomen. 2. There is a trace of fluid adjacent to the liver. There is a small amount of free fluid deep in the pelvis. 3. Multiple dilated loops of small bowel with fluid and air suggestive of a postsurgical ileus. 4. There continues to be a prominent hiatal hernia. 5. Small bilateral pleural effusions with atelectasis in both lung bases. Chest CT 04/16/18 00:00 CONCLUSION: 1. Bilateral lower lobe consolidation/atelectasis and left greater than right pleural effusions. 2. Prominent hiatal hernia again noted. 3. Postsurgical findings in the region of the hiatal hernia and upper abdomen with surgical drains again in place. Elongated 4 x 2 cm fluid density in the left upper quadrant abutting the lateral margin of the stomach, nonspecific. Chest X-Ray 04/17/18 06:00 CONCLUSION: No significant interval change. Persistent left lower lobe consolidation versus atelectasis and bilateral hazy pulmonary opacity with lower lung zone predominance. Physical Exam: GENERAL: NAD awake alert OOB in a chair, comfortable SKIN: Warm and dry. no rash HEAD: Atraumatic. Normocephalic. EYES: Pupils equal and round. No scleral icterus. No injection or drainage. ENT: No nasal bleeding or discharge. Mucous membranes pink and moist. NECK: Trachea midline. No JVD. CARDIOVASCULAR: Regular rate and rhythm. Chest wall surgical site with no e.o infection. RESPIRATORY: No accessory muscle use. Clear to auscultation. Breath sounds equal bilaterally. GASTROINTESTINAL: Abdomen soft, no tenderness to palpation, + distended Hepatic and splenic margins not palpable. MUSCULOSKELETAL: Extremities without clubbing, no cyanosis or edema. No obvious deformities. NEUROLOGICAL: awake, fully alert speech normal appropriately unswering questions PSYCHIATRIC: calm Assessment and Plan - Plan Sepsis ongoing (fever at some point, WBC, source: Candidemia likely sec to GI issues: perforation. Large paraesophageal hernia sp perforation of stomach with diffuse contamination of abdominal cavity. SIRS/high grade leucocytosis likely from peritonitis and fungemia. sp emergent lap repair Acute VDRF ALVIN CAD severe sp CABG on 04/04 leukocytosis; now improving - leukemoid reaction, b/l pleural effusions, consolidations Ileus C.glabrata sepsis source intraabd less likley line - no fungal endophthalmitis repeat BC are negative 2D echo negative as of 04/08 No drainable fluid collections on abd/pel CT scan Recs: cont zosyn for now will need to have WBC close to normal before we stop it cont micafungin thru 05/03 will repeat 2 D echo if more + bl clx Will repeat CT A/P if cont to have unexplained worsening leukocytosis dw Dr YOSHI mondragon RN [facility] to [facility]
[2018-04-19] MEDS ORDERED: Enoxaparin Inj 100 MG/ML Syringe SQ SCH (12:00)
--- NOTE | 2018-04-19 12:02 | P.PNCC ---
Subjective Subjective Remarks/Hospital Course: This is a 77-year-old female. Date of admission 04/04/2018. Date of consultation 04/06/2018. Patient has no history of aortic stenosis, coronary disease, hypertension, hyperlipidemia, gastroesophageal reflux disease, hypothyroidism and depression. On 04/04, patient had a two-vessel CABG ZAPATA to LAD, reverse saphenous vein graft to OM of left circumflex with left EVH and CLARA excision. Without complications. Today, patient this morning was in atrial fibrillation with rapid ventricular response. Received 150 mg IV amiodarone and started on oral amiodarone 400 mg along with 25 mg of oral metoprolol tartrate.. She became bradycardic this afternoon and we are asked to evaluate the patient. She is received 2 g of calcium chloride and is currently been started on dopamine drip. Her heart rate and blood pressure immediately improved after the infusion of calcium chloride. In reviewing laboratories, potassium magnesium are within normal limits. She does have a new leukocytosis of 19,000. She denies shortness of breath. She is more confused likely due to hypoperfusion 04/07 Patient is lying in bed in NAD. Feeling nauseas, denies any abdominal pain. 04/08 Patient was given Lopressor, Cardizem and Digoxin overnight for tachycardic became hypotensive and started on Neosyn ( current MAP 81mmHg). Renal function worse today with Cr: 2.22 from 1.76 04/09 Patient s/p Laparoscopic partial reduction of paraesophageal hernia and wedge resection of greater curvature of stomach. Remains intubated postop on Levophed 3 mics, sedated with Fentanyl and on is Precedex drip. s/p [id number] PRBC overnight Hgb 9.6 this morning from 6.8 04/10 Patient remains intubated and sedated. On Levophed 2 mics. :100.4 at 4am, renal function is improving with Cr: 1.40 from 1.99 04/11 Patient remains intubated off Levophed. On Fentanyl infusion for sedation. Renal function is improving with Cr:1.18 from 1.4. Afebrile. 04/12 Patient is awake and alert on CPAP with PS 10, PEEP:5 and FIO2 35%, s/p CT guided right thoracentesis yesterday with removal 550ml. Afebrile. On Heparin drip. 04/13 Patient was extubated yesterday on 2L oxygen, on Heparin drip. Afebrile. 04/14 No events overnight. Afebrile, WBC is rising 35 today from 30. On Heparin drip. 04/15 Patient was anxious this morning. Afebrile however WBC continue to rise 37 today. On Heparin drip. 04/16: White blood cell count down to 29K. Remains on heparin drip. Awake and alert and following commands. Anxiety noted. Requesting alprazolam. 04/17 no events overnight. WBC continue to trend down 24 today. Afebrile. On Heparin drip. On 3L oxygen. 04/18: Afebrile. White blood cell count stable at 24,000. Remains on heparin drip. Remains on 2 L nasal cannula. Awake and alert and appropriate today. Discussed with CT surgery. Okay to transfer to [facility]. Would like to start on warfarin we will ask general surgery. SUBJECTIVE: 04/19: Afebrile. Remains on low-dose 2 L nasal cannula. Awake alert and appropriate. Currently normal sinus rhythm. Transfer to [facility] today okay per primary team and specialist. Objective Vital Signs / I&O: Vital Signs 04/18/18 13:00 04/18/18 15:00 04/18/18 15:24 Temperature 98.2 F Pulse Rate 91 H 75 Respiratory Rate 24 17 Blood Pressure 146/77 H Pulse Oximetry 98 99 04/18/18 17:00 04/18/18 19:00 04/18/18 20:57 Temperature 97.1 F L Pulse Rate 91 H 82 Respiratory Rate 24 18 Blood Pressure 156/63 H Pulse Oximetry 96 99 95 04/18/18 23:00 04/19/18 00:00 04/19/18 03:00 Temperature 96.9 F L 97.8 F Pulse Rate 92 H 83 Respiratory Rate 20 20 Blood Pressure 139/67 139/68 Pulse Oximetry 94 L 96 94 L 04/19/18 04:04 04/19/18 07:00 04/19/18 10:29 Temperature 98.0 F Pulse Rate 77 79 86 Respiratory Rate 18 20 17 Blood Pressure 143/72 H Pulse Oximetry 98 95 04/19/18 11:00 Temperature 98.2 F Pulse Rate 76 Respiratory Rate 20 Blood Pressure 151/65 H Pulse Oximetry 99 Intake & Output 04/18/18 04/19/18 04/19/18 18:59 06:59 18:59 Intake Total 1300 / 1300 370 / 370 Output Total 1160 / 1160 100 / 100 Balance 140 / 140 270 / 270 Weight 92 kg Intake: IV 400 / 400 320 / 320 Heparin/D5W 25,000 U/250 mL 25, 120 / 120 000 unit In 250 ml @ 1,700 UNITS/HR 17 mls/hr IV.CONT TITRATE PRN Rx#:[id number] Mycamine Inj 150 MG In NS Inj 100 / 100 100 ML @ 100 mls/hr IV.SIG Q24H YASH Rx#:[id number] Zosyn 3.375 GM Premix 50 ML @ 100 / 100 200 mls/hr IV.SIG Q6H YASH Rx#: [id number] Zosyn 4.5 GM Premix 4.5 gm In 100 / 100 200 / 200 100 ml @ 200 mls/hr IV.SIG Q6H YASH Rx#:[id number] KCl 20 mEq Premix Inj 20 meq In 100 / 100 100 ml @ 50 mls/hr IV.SIG Q2H PRN Rx#:[id number] Oral 900 / 900 50 / 50 Output: Urine 900 / 900 100 / 100 Urine Amount (Catheter) 260 / 260 Indwelling Urethral Catheter 260 / 260 Other: Date of Last Bowel Movement 04/18/18 04/18/18 04/19/18 # Bowel Movements 3 Result Diagrams: 04/19/18 04:55 04/19/18 04:55 Other Results: Microbiology 04/12/18 05:11 Blood - Peripheral Aerobic Blood Culture - Final No growth in 5 days 04/12/18 05:11 Blood - Peripheral Anaerobic Blood Culture - Final No growth in 5 days 04/12/18 05:25 Blood - Peripheral Aerobic Blood Culture - Final No growth in 5 days 04/12/18 05:25 Blood - Peripheral Anaerobic Blood Culture - Final No growth in 5 days 04/15/18 00:00 Stool Stool Occult Blood (BALTAZAR) - Final Hemoccult positive 04/11/18 16:10 Fluid - Pleural fluid Gram Stain - Final 04/11/18 16:10 Fluid - Pleural fluid Body Fluid Culture - Final No growth in 72 hours (aerobically and anaerobically ) 04/08/18 14:40 Blood - Peripheral Aerobic Blood Culture - Final [place] glabrata 04/08/18 14:40 Blood - Peripheral Anaerobic Blood Culture - Final No growth in 5 days 04/11/18 16:57 Sputum - Endotracheal Gram Stain - Final 04/11/18 16:57 Sputum - Endotracheal Sputum Culture - Final Moderate growth normal respiratory [place] 04/08/18 14:33 Blood - Peripheral Aerobic Blood Culture - Final No growth in 5 days 04/08/18 14:33 Blood - Peripheral Anaerobic Blood Culture - Final No growth in 5 days Imaging: Chest X-Ray 04/04/18 11:27 CONCLUSION: 1. Status post CABG. 2. Cardiomegaly with pulmonary vascular congestion and bibasilar densities. 3. Support lines and tubes as above. 4. Nasogastric tube likely coiled within a large hiatal hernia. Chest X-Ray 04/05/18 05:00 CONCLUSION: Bibasilar consolidation slightly worse on the right and slightly improved on the left since yesterday. Mediastinal drain and left chest tube remain in place. No pneumothorax. Chest X-Ray 04/06/18 00:00 CONCLUSION: 1. Huge hiatal hernia and the entire stomach is basically said the chest filled with gas not present previously. 2. Slight bilateral lung base atelectasis and/or infiltrate is seen, mild pulmonary edema is also suspected. Abdomen X-Ray 04/07/18 00:00 CONCLUSION: Nonspecific bowel gas pattern with scattered small and large bowel gas. Chest X-Ray 04/07/18 06:00 CONCLUSION: Resolving pulmonary edema. Small left effusion Abdomen/Bladder Ultrasound 04/08/18 00:00 CONCLUSION: Kidneys within normal limits. Right pleural effusion noted. Chest X-Ray 04/08/18 09:12 CONCLUSION: 1. Increased bilateral lower lung zone opacity indicating a combination of consolidation/atelectasis and small pleural effusions. 2. Large hiatal hernia with gas-filled stomach in the chest again seen. Abdomen/Pelvis CT 04/08/18 10:09 CONCLUSION: 1. Prominent amount of free air and free fluid in the upper abdomen and within a large hiatal hernia. A large portion of the stomach is in a hiatal hernia. Most likely etiology for the findings is a perforated gastric ulcer. Findings discussed with the patient's nurse. 2. Distended gallbladder. Chest CT 04/08/18 10:09 CONCLUSION: 1. Large hiatal hernia containing a large portion of the stomach with moderate amount of free air in the hiatal hernia and in the upper abdomen. Distal gastric wall thickening and extraluminal fluid adjacent to the distal stomach. Most likely etiology for the findings is a perforated gastric ulcer. Free fluid is also seen in the upper abdomen. 2. New bilateral lower lobe atelectasis/consolidation and small bilateral pleural effusions. Chest X-Ray 04/08/18 22:44 CONCLUSION: Satisfactory tube and line positioning. Improved aeration. Chest X-Ray 04/10/18 09:12 CONCLUSION: Bibasilar consolidation and pleural effusions. Chest Ultrasound 04/11/18 00:00 CONCLUSION: 1. Left pleural effusion and marked on the skin. Chest Ultrasound 04/11/18 00:00 CONCLUSION: 1. Right pleural effusion marked on the skin. Thoracentesis CT 04/11/18 00:00 CONCLUSION: 1. Uncomplicated CT-guided thoracentesis. Abdomen X-Ray 04/11/18 12:13 CONCLUSION: Nonspecific, nonobstructive bowel gas pattern which may represent a mild ileus or gastroenteritis. Chest X-Ray 04/11/18 16:34 CONCLUSION: Status post right thoracentesis. No evidence of pneumothorax. Abdomen/Pelvis CT 04/12/18 00:00 CONCLUSION: 1. The previously noted free air on the prior study has resolved. Patient is recently status post abdominal surgery. There are surgical drains in the upper abdomen. 2. There is a trace of fluid adjacent to the liver. There is a small amount of free fluid deep in the pelvis. 3. Multiple dilated loops of small bowel with fluid and air suggestive of a postsurgical ileus. 4. There continues to be a prominent hiatal hernia. 5. Small bilateral pleural effusions with atelectasis in both lung bases. Chest X-Ray 04/14/18 09:40 CONCLUSION: Persistent mild vascular congestion and left basilar airspace disease. Suspected small effusions. Otherwise stable chest status post extubation. Chest CT 04/16/18 00:00 CONCLUSION: 1. Bilateral lower lobe consolidation/atelectasis and left greater than right pleural effusions. 2. Prominent hiatal hernia again noted. 3. Postsurgical findings in the region of the hiatal hernia and upper abdomen with surgical drains again in place. Elongated 4 x 2 cm fluid density in the left upper quadrant abutting the lateral margin of the stomach, nonspecific. Chest X-Ray 04/16/18 04:00 CONCLUSION: Unchanged exam. Chest X-Ray 04/17/18 06:00 CONCLUSION: No significant interval change. Persistent left lower lobe consolidation versus atelectasis and bilateral hazy pulmonary opacity with lower lung zone predominance. Objective Remarks: GENERAL: Patient is 77 yo lying in bed on nasal cannula in no acute distress SKIN: Warm and dry. HEAD: Normocephalic. EYES: No scleral icterus. No injection or drainage. NECK: Supple, trachea midline. No JVD or lymphadenopathy. CARDIOVASCULAR: Tachycardic and irregular. S1, S2 no S 4. RESPIRATORY: Breath sounds equal bilaterally. No accessory muscle use. GASTROINTESTINAL: Abdomen soft, non-tender, nondistended. Incision site is clean dry and intact MUSCULOSKELETAL: Trace nonpitting bilateral lower extremity edema Neuro: Awake and alert. Moves all 4 extremities spontaneously. Assessment and Plan - Assessment and Plan Plan: Neuro/Psych: Depressive disorder NOS History of TIA Awake and alert on paroxetine 10 mg daily for depression. CV: Postoperative CABG x2 ZAPATA to LAD, reverse saphenous vein graft to OM with left EVH and CLARA excision -Dr. Warner Atrial fibrillation Essential hypertension by history Hyperlipidemia Coronary artery disease status post PTCA left anterior descending proximal monitor HR and BP keep MAP>65mmHG On Verapamil 40mg TID, ASA 81mg daily Cardiac catheterization 417 revealed 0.48 cm area. EF 55-60%. Moderate aortic regurgitation. On rosuvastatin 10 mg daily at home. Noted allergies to atorvastatin simvastatin Cards has followed- Dr. Valle On Heparin drip- Monitor PTT per protocol. Resp: VDRF Extubated 04/12 Obstructive sleep apnea Continue with nasal cannula oxygen keep sats> 92% Bronchodilators every 6 hours, IS chest x-ray 04/19 a.m. s/p CT guided right thoracentesis 04/11 with removal 550 ml pleural fluid Exudative effusion by LDH criteria likely 2nd diuretics On furosemide 40 mg IV daily. GI: s/p Laparoscopic partial reduction of paraesophageal hernia, wedge resection of greater curvature of stomach 04/08 Diverticulosis Gastroesophageal reflux disease Hiatal hernia Hypoalbuminemia On PO cardiac diet Pantoprazole for GI prophylaxis CT abdomen/pelvis 04/12 - the previously noted free air on the prior study has resolved. Patient is recently status post abdominal surgery. There are surgical drains in the upper abdomen. Multiple dilated loops of small bowel with fluid and air suggestive of a postsurgical ileus. Prominent hiatal hernia. Docusate sodium/senna 1 tablet twice daily for hours along with polythene glycol 17 g daily KUB 04/11: Nonspecific, nonobstructive bowel gas pattern which may represent a mild ileus KUB abdomen 04/07 : Nonspecific bowel gas pattern with scattered small and large bowel gas. 04/08 CT abd/pelvis- Prominent amount of free air and free fluid in the upper abdomen and within a large hiatal hernia. A large portion of the stomach is in a hiatal hernia. Most likely etiology for the findings is a perforated gastric ulcer. 04/08 s/p Laparoscopic partial reduction of paraesophageal hernia, wedge resection of greater curvature of stomach, washout, drain placement performed. Monitor OANH drainage- Surgery- Dr. Craig. Endo: Hypothyroidism Currently on levothyroxine 100 mcg p.o. daily TSH:0.72 Sliding scale insulin with aspart insulin FEN//renal: Acute kidney injury Acute hypopotassemia Monitor renal function, I/O's, electrolytes replacement per protocol Furosemide 40mg IV daily Renal US: No hydronephrosis Heme: Leukocytosis Normocytic anemia Chronic warfarin use Monitor CBC, Coags daily.on Heparin drip per cards s/p transfusion 2u PRBC overnight 04/09 Okay to restart warfarin per general surgery ID: Rocío glabrata fungemia 04/08 On empiric abx (piperacillin/tazobactam, Micafungin) Monitor for signs of infections ( fever, WBC) WBC stabilized. Follow up BC 04/08: Rocío Glabrata Seen by Optho- No evidence of endophthalmitis C-diff PCR negative ID is following. Continue micafungin through 04/25. Continue piperacillin/ tazobactam until white blood cell count decreases MSK: Elevated BMI Osteoporosis/osteoarthritis Lumbar radiculopathy Physical therapy evaluate and treat Weight loss encouraged Access -Utilize peripheral IV. Prophylaxis -GI -pantoprazole -DVT-SCD/pharmacological prophylaxis- Heparin dip Level 2 follow-up
[2018-04-19 13:32] VITALS: RESP 16
[2018-04-19] MEDS: Micafungin Inj 150 MG in Sodium Chlor 0.9% Inj 100 ML IV.SIG SCH (13:48)
--- NOTE | 2018-04-19 14:20 | P.TS ---
Transfer Discharge Sum: Prov Date of admission: 04/04/18 11:56 Primary care physician: No Primary Care Physician Admitting clinician: Fermin Warner Attending physician on admission: Fermin Warner Consults: 04/05/18 10:25 HUB Only Consult Order Routine Consulting Provider: Abiola Valero 04/06/18 15:26 Consult to Teacher Visually Impaired Stat Consulting Provider: J Carlos Schroeder For STAT consult, spoke directly to:: Dr Schroeder Reason for Consultation: hypotension post CABG/ bradycardia Notified:: Service Spoke with:: Christine Date Notified:: 04/06/18 Time Notified:: 15:30 Comments:: please add to his list Ordering Provider: FRANDY 04/07/18 09:49 Consult to Cardiology Routine Consulting Provider: Regulo Valle Does the patient have a Acute Care Nurse Practitioner who follows them?: Yes Preferred Facilities Plant Engineer:: Lakisha Menendez Reason for Consultation: hx of afib/ post cabg/ severe /s/p RVR> bradycardia hypotension Notified:: Office Spoke with:: Margareth Date Notified:: 04/07/18 Time Notified:: 09:54 Ordering Provider: FRANDY 04/08/18 10:39 Consult to Nephrology Routine Consulting Provider: Re Holliday Does the patient have a Lock Operator who follows them?: No Preferred Nephrology Animal Ride Attendant:: Manager Philosophy Physician Reason for Consultation: ALVIN Notified:: Service Spoke with:: MARGARETH Date Notified:: 04/08/18 Time Notified:: 10:51 Ordering Provider: FRITZ 04/08/18 13:39 Consult to General Surgery Routine Consulting Provider: Adalid Craig Reason for Consultation: perforated gastric ulcer, free air in abdomen Notified:: Service Spoke with:: RACHAEL Date Notified:: 04/08/18 Time Notified:: 14:25 Ordering Provider: FRITZ 04/09/18 09:04 Consult to Infectious Diseases Routine Consulting Provider: mEa Knox Reason for Consultation: ?peritonites Notified:: Service Spoke with:: RINKU Date Notified:: 04/09/18 Time Notified:: 09:23 Ordering Provider: FRITZ 04/12/18 14:36 Consult to Ophthalmology Routine Consulting Provider: Beatriz Vieira Reason for Consultation: fungemia. Evaluate for fungal endophthalmitis Notified:: Office Spoke with:: Rhiannon Date Notified:: 04/12/18 Time Notified:: 14:47 Ordering Provider: JOELLE 04/17/18 12:56 HUB Only Consult Order Routine Consulting Provider: Abiola Dixon 04/18/18 15:06 Consult to Hospitalist Routine Consulting Provider: Simba Avalos Reason for Consultation: medical management Notified:: Service Spoke with:: SUSANNAH Date Notified:: 04/18/18 Time Notified:: 15:18 Comments:: Ordering Provider: FRANDY Attending physician on discharge: Fermin Warner Discharging clinician: Fermin Warner Anticipated date of transfer: 04/19/18 [facility]ceiving [facility] [place] DS: Diagnosis - Discharge Diagnosis (1) Severe aortic stenosis Status: Chronic (2) Coronary artery disease involving upper [place] coronary artery Status: Acute (3) Congestive heart failure (CHF) Status: Chronic (4) Atrial fibrillation Status: Chronic (5) COPD (chronic obstructive pulmonary disease) Status: Chronic (6) S/P CABG (coronary artery bypass graft) Status: Acute (7) S/P exploratory laparotomy Status: Acute (8) Pneumoperitoneum Status: Acute (9) Paraesophageal hernia Status: Acute (10) Respiratory failure requiring intubation Status: Acute (11) Leukocytosis Status: Acute (12) Acute renal failure Status: Acute (13) Gastric ulcer, acute with perforation Status: Acute (14) Fungemia Status: Acute Transfer Discharge Sum: Med - Medications Active and Home Medications: Home Medications ciprofloxacin HCl [Cipro] 500 mg PO Q12H 02/16/18 [History Confirmed 04/04/18] coenzyme Q10 [Co Q-10] 10 mg PO TID 02/16/18 [History Confirmed 04/04/18] furosemide 40 mg PO BID 02/16/18 [History Confirmed 04/04/18] levothyroxine 100 mcg PO DAILY #14 cap 02/16/18 [Rx Confirmed 04/04/18] losartan 50 mg PO DAILY 02/16/18 [History Confirmed 04/04/18] pantoprazole 40 mg PO DAILY 02/16/18 [History Confirmed 04/04/18] paroxetine HCl 10 mg PO DAILY 02/16/18 [History Confirmed 04/04/18] potassium chloride [K-Tab] 10 meq PO DAILY 02/16/18 [History Confirmed 04/04/18] ranitidine HCl 150 mg PO BID 02/16/18 [History Confirmed 04/04/18] rosuvastatin 20 mg PO DAILY 02/16/18 [History Confirmed 04/04/18] verapamil 180 mg PO DAILY 02/16/18 [History Confirmed 04/04/18] warfarin 5 mg PO DAILY 02/16/18 [History Confirmed 04/04/18] aspirin 81 mg PO DAILY 03/09/18 [History Confirmed 04/04/18] nitroglycerin 0.4 mg SUBLINGUAL Q5-15M PRN 03/09/18 [History Confirmed 04/04/18] Active Medications Acetaminophen (Tylenol) 650 mg PO Q4H PRN PRN Reason: Acute Pain Last Admin: 04/19/18 11:13 Dose: 650 mg Al Hydroxide/Mg Hydroxide (Milk Of Magnesia Liq) 30 ml PO DAILY PRN PRN Reason: CONSTIPATION Albuterol (Duoneb Neb (Prn)) 1 ampul NEB Q2HR NEB PRN PRN Reason: WHEEZING Last Admin: 04/19/18 13:30 Dose: 1 ampul Albuterol (Duoneb Neb (Jose)) 1 ampul NEB Q6HR NEB [facility] Last Admin: 04/19/18 10:29 Dose: 1 ampul Alprazolam (Xanax) 0.25 mg PO Q12HR PRN PRN Reason: ANXIETY Aspirin (Aspirin Chew) 81 mg PO DAILY [facility] Last Admin: 04/19/18 08:40 Dose: 81 mg Bisacodyl (Dulcolax Supp) 10 mg RECTAL PRN PRN PRN Reason: SEE LABEL COMMENTS Dextrose (D50w Vial) 50 ml IV.PUSH UNSCH PRN PRN Reason: PER HYPOGLYCEMIA PROTOCOL Last Admin: 04/12/18 05:40 Dose: 25 ml Docusate Sodium (Colace Liq) 100 mg PO BID [facility] Last Admin: 04/19/18 08:41 Dose: Not Given Enoxaparin Sodium (Lovenox Inj) 90 mg SQ Q12HR [facility] Last Admin: 04/19/18 13:47 Dose: 90 mg Furosemide (Lasix Inj) 40 mg IV.PUSH DAILY [facility] Last Admin: 04/19/18 08:40 Dose: 40 mg Glucagon (Glucagon Inj) 1 mg OTHER UNSCH PRN PRN Reason: for Hypoglycemia Protocol Micafungin Sodium 150 mg/ (Sodium Chloride) 100 mls @ 100 mls/hr IV.SIG Q24H [facility] Last Admin: 04/19/18 13:48 Dose: 100 mls/hr Piperacillin/Tazobactam/Dextrose (Zosyn 4.5 Gm Premix) 4.5 gm in 100 mls @ 200 mls/hr IV.SIG Q6H [facility] Last Infusion: 04/19/18 09:30 Dose: Infused Insulin Aspart (Novolog Insulin Correctional Sugar Inj) 0 unit SQ Q4HR JOSE; Protocol Last Admin: 04/19/18 13:23 Dose: Not Given Levothyroxine Sodium (Synthroid) 100 mcg PO DAILY@0600 [facility] Last Admin: 04/19/18 06:29 Dose: 100 mcg Miscellaneous (Pill Splitter) 1 each OTHER UNSCH PRN PRN Reason: SEE LABEL COMMENTS Multivitamins/Minerals (Theragran-M) 1 tab PO DAILY [facility] Last Admin: 04/19/18 08:41 Dose: 1 tab Ondansetron HCl (Zofran Inj) 4 mg IV.PUSH Q6H PRN PRN Reason: NAUSEA OR VOMITING Last Admin: 04/17/18 21:58 Dose: 4 mg Pantoprazole Sodium (Protonix Inj) 40 mg IV.PUSH Q12H [facility] Last Admin: 04/19/18 11:13 Dose: 40 mg Paroxetine HCl (Paxil) 10 mg PO DAILY [facility] Last Admin: 04/19/18 08:40 Dose: 10 mg Patient's Own: ( Rosuvastatin [ Rosuvastatin] 20 Mg) 0 each PO DAILY [facility] Polyethylene Glycol (Miralax) 17 gm PO DAILY PRN PRN Reason: CONSTIPATION Potassium Chloride (Klor-Con 10) 20 meq PO DAILY [facility] Last Admin: 04/19/18 08:40 Dose: 20 meq Sennosides (Senokot) 8.6 mg PO HS PRN PRN Reason: CONSTIPATION Sodium Biphosphate/Sodium Phosphate (Fleets Enema (Adult)) 118 ml RECTAL UNSCH PRN PRN Reason: SEE LABEL COMMENTS Sodium Chloride (Ns Flush) 2 ml IV.FLUSH BID [facility] Last Admin: 04/19/18 08:41 Dose: 2 ml Sodium Chloride (Ns Flush) 2 ml IV.FLUSH PRN PRN PRN Reason: FLUSH AFTER USING IV ACCESS Verapamil HCl (Isoptin) 40 mg PO TID [facility] Last Admin: 04/19/18 13:47 Dose: 40 mg Warfarin Sodium (Coumadin) 4 mg PO DAILY@1600 [facility] Transfer Discharge Sum: Hosp - Time Spent with Patient Total time spent providing and/or coordinating transfer services: Hospital Course: [facility] notes This is a 77-year-old female. Date of admission 04/04/2018. Date of consultation 04/06/2018. Patient has no history of aortic stenosis, coronary disease, hypertension, hyperlipidemia, gastroesophageal reflux disease, hypothyroidism and depression. On 04/04, patient had a two-vessel CABG ZAPATA to LAD, reverse saphenous vein graft to OM of left circumflex with left EVH and CLARA excision. Without complications. Today, patient this morning was in atrial fibrillation with rapid ventricular response. Received 150 mg IV amiodarone and started on oral amiodarone 400 mg along with 25 mg of oral metoprolol tartrate.. She became bradycardic this afternoon and we are asked to evaluate the patient. She is received 2 g of calcium chloride and is currently been started on dopamine drip. Her heart rate and blood pressure immediately improved after the infusion of calcium chloride. In reviewing laboratories, potassium magnesium are within normal limits. She does have a new leukocytosis of 19,000. She denies shortness of breath. She is more confused likely due to hypoperfusion 04/07 Patient is lying in bed in NAD. Feeling nauseas, denies any abdominal pain. 04/08 Patient was given Lopressor, Cardizem and Digoxin overnight for tachycardic became hypotensive and started on Neosyn ( current MAP 81mmHg). Renal function worse today with Cr: 2.22 from 1.76 04/09 Patient s/p Laparoscopic partial reduction of paraesophageal hernia and wedge resection of greater curvature of stomach. Remains intubated postop on Levophed 3 mics, sedated with Fentanyl and on is Precedex drip. s/p [id number] PRBC overnight Hgb 9.6 this morning from 6.8 04/10 Patient remains intubated and sedated. On Levophed 2 mics. :100.4 at 4am, renal function is improving with Cr: 1.40 from 1.99 11/6 Patient remains intubated off Levophed. On Fentanyl infusion for sedation. Renal function is improving with Cr:1.18 from 1.4. Afebrile. 04/12 Patient is awake and alert on CPAP with PS 10, PEEP:5 and FIO2 35%, s/p CT guided right thoracentesis yesterday with removal 550ml. Afebrile. On Heparin drip. 04/13 Patient was extubated yesterday on 2L oxygen, on Heparin drip. Afebrile. 04/14 No events overnight. Afebrile, WBC is rising 35 today from 30. On Heparin drip. 04/15 Patient was anxious this morning. Afebrile however WBC continue to rise 37 today. On Heparin drip. 04/16: White blood cell count down to 29K. Remains on heparin drip. Awake and alert and following commands. Anxiety noted. Requesting alprazolam. 04/17 no events overnight. WBC continue to trend down 24 today. Afebrile. On Heparin drip. On 3L oxygen. 04/18: Afebrile. White blood cell count stable at 24,000. Remains on heparin drip. Remains on 2 L nasal cannula. Awake and alert and appropriate today. Discussed with CT surgery. Okay to transfer to [facility]. Would like to start on warfarin we will ask general surgery. SUBJECTIVE: 04/19: Afebrile. Remains on low-dose 2 L nasal cannula. Awake alert and appropriate. Currently normal sinus rhythm. Transfer to [facility] today okay per primary team and specialist. Objective Vital Signs / I&O: Vital Signs 04/18/18 13:00 04/18/18 15:00 04/18/18 15:24 Temperature 98.2 F Pulse Rate 91 H 75 Respiratory Rate 24 17 Blood Pressure 146/77 H Pulse Oximetry 98 99 04/18/18 17:00 04/18/18 19:00 04/18/18 20:57 Temperature 97.1 F L Pulse Rate 91 H 82 Respiratory Rate 24 18 Blood Pressure 156/63 H Pulse Oximetry 96 99 95 04/18/18 23:00 04/19/18 00:00 04/19/18 03:00 Temperature 96.9 F L 97.8 F Pulse Rate 92 H 83 Respiratory Rate 20 20 Blood Pressure 139/67 139/68 Pulse Oximetry 94 L 96 94 L 04/19/18 04:04 04/19/18 07:00 04/19/18 10:29 Temperature 98.0 F Pulse Rate 77 79 86 Respiratory Rate 18 20 17 Blood Pressure 143/72 H Pulse Oximetry 98 95 04/19/18 11:00 Temperature 98.2 F Pulse Rate 76 Respiratory Rate 20 Blood Pressure 151/65 H Pulse Oximetry 99 Intake & Output 04/18/18 04/19/18 04/19/18 18:59 06:59 18:59 Intake Total 1300 / 1300 370 / 370 Output Total 1160 / 1160 100 / 100 Balance 140 / 140 270 / 270 Weight 92 kg Intake: IV 400 / 400 320 / 320 Heparin/D5W 25,000 U/250 mL 25, 120 / 120 000 unit In 250 ml @ 1,700 UNITS/HR 17 mls/hr IV.CONT TITRATE PRN Rx#:[id number] Mycamine Inj 150 MG In NS Inj 100 / 100 100 ML @ 100 mls/hr IV.SIG Q24H JOSE Rx#:[id number] Zosyn 3.375 GM Premix 50 ML @ 100 / 100 200 mls/hr IV.SIG Q6H JOSE Rx#: [id number] Zosyn 4.5 GM Premix 4.5 gm In 100 / 100 200 / 200 100 ml @ 200 mls/hr IV.SIG Q6H JOSE Rx#:[id number] KCl 20 mEq Premix Inj 20 meq In 100 / 100 100 ml @ 50 mls/hr IV.SIG Q2H PRN Rx#:[id number] Oral 900 / 900 50 / 50 Output: Urine 900 / 900 100 / 100 Urine Amount (Catheter) 260 / 260 Indwelling Urethral Catheter 260 / 260 Other: Date of Last Bowel Movement 04/18/18 04/18/18 04/19/18 # Bowel Movements 3 Result Diagrams: 04/19/18 04:55 04/19/18 04:55 Other Results: Microbiology 04/12/18 05:11 Blood - Peripheral Aerobic Blood Culture - Final No growth in 5 days 04/12/18 05:11 Blood - Peripheral Anaerobic Blood Culture - Final No growth in 5 days 04/12/18 05:25 Blood - Peripheral Aerobic Blood Culture - Final No growth in 5 days 04/12/18 05:25 Blood - Peripheral Anaerobic Blood Culture - Final No growth in 5 days 04/15/18 00:00 Stool Stool Occult Blood (BALTAZAR) - Final Hemoccult positive 04/11/18 16:10 Fluid - Pleural fluid Gram Stain - Final 04/11/18 16:10 Fluid - Pleural fluid Body Fluid Culture - Final No growth in 72 hours (aerobically and anaerobically ) 04/08/18 14:40 Blood - Peripheral Aerobic Blood Culture - Final Rocío glabrata 04/08/18 14:40 Blood - Peripheral Anaerobic Blood Culture - Final No growth in 5 days 04/11/18 16:57 Sputum - Endotracheal Gram Stain - Final 04/11/18 16:57 Sputum - Endotracheal Sputum Culture - Final Moderate growth normal respiratory darwin 04/08/18 14:33 Blood - Peripheral Aerobic Blood Culture - Final No growth in 5 days 04/08/18 14:33 Blood - Peripheral Anaerobic Blood Culture - Final No growth in 5 days Imaging: Chest X-Ray 04/04/18 11:27 CONCLUSION: 1. Status post CABG. 2. Cardiomegaly with pulmonary vascular congestion and bibasilar densities. 3. Support lines and tubes as above. 4. Nasogastric tube likely coiled within a large hiatal hernia. Chest X-Ray 04/05/18 05:00 CONCLUSION: Bibasilar consolidation slightly worse on the right and slightly improved on the left since yesterday. Mediastinal drain and left chest tube remain in place. No pneumothorax. Chest X-Ray 04/06/18 00:00 CONCLUSION: 1. Huge hiatal hernia and the entire stomach is basically said the chest filled with gas not present previously. 2. Slight bilateral lung base atelectasis and/or infiltrate is seen, mild pulmonary edema is also suspected. Abdomen X-Ray 04/07/18 00:00 CONCLUSION: Nonspecific bowel gas pattern with scattered small and large bowel gas. Chest X-Ray 04/07/18 06:00 CONCLUSION: Resolving pulmonary edema. Small left effusion Abdomen/Bladder Ultrasound 04/08/18 00:00 CONCLUSION: Kidneys within normal limits. Right pleural effusion noted. Chest X-Ray 04/08/18 09:12 CONCLUSION: 1. Increased bilateral lower lung zone opacity indicating a combination of consolidation/atelectasis and small pleural effusions. 2. Large hiatal hernia with gas-filled stomach in the chest again seen. Abdomen/Pelvis CT 04/08/18 10:09 CONCLUSION: 1. Prominent amount of free air and free fluid in the upper abdomen and within a large hiatal hernia. A large portion of the stomach is in a hiatal hernia. Most likely etiology for the findings is a perforated gastric ulcer. Findings discussed with the patient's nurse. 2. Distended gallbladder. Chest CT 04/08/18 10:09 CONCLUSION: 1. Large hiatal hernia containing a large portion of the stomach with moderate amount of free air in the hiatal hernia and in the upper abdomen. Distal gastric wall thickening and extraluminal fluid adjacent to the distal stomach. Most likely etiology for the findings is a perforated gastric ulcer. Free fluid is also seen in the upper abdomen. 2. New bilateral lower lobe atelectasis/consolidation and small bilateral pleural effusions. Chest X-Ray 04/08/18 22:44 CONCLUSION: Satisfactory tube and line positioning. Improved aeration. Chest X-Ray 04/10/18 09:12 CONCLUSION: Bibasilar consolidation and pleural effusions. Chest Ultrasound 04/11/18 00:00 CONCLUSION: 1. Left pleural effusion and marked on the skin. Chest Ultrasound 04/11/18 00:00 CONCLUSION: 1. Right pleural effusion marked on the skin. Thoracentesis CT 04/11/18 00:00 CONCLUSION: 1. Uncomplicated CT-guided thoracentesis. Abdomen X-Ray 04/11/18 12:13 CONCLUSION: Nonspecific, nonobstructive bowel gas pattern which may represent a mild ileus or gastroenteritis. Chest X-Ray 04/11/18 16:34 CONCLUSION: Status post right thoracentesis. No evidence of pneumothorax. Abdomen/Pelvis CT 04/12/18 00:00 CONCLUSION: 1. The previously noted free air on the prior study has resolved. Patient is recently status post abdominal surgery. There are surgical drains in the upper abdomen. 2. There is a trace of fluid adjacent to the liver. There is a small amount of free fluid deep in the pelvis. 3. Multiple dilated loops of small bowel with fluid and air suggestive of a postsurgical ileus. 4. There continues to be a prominent hiatal hernia. 5. Small bilateral pleural effusions with atelectasis in both lung bases. Chest X-Ray 04/14/18 09:40 CONCLUSION: Persistent mild vascular congestion and left basilar airspace disease. Suspected small effusions. Otherwise stable chest status post extubation. Chest CT 04/16/18 00:00 CONCLUSION: 1. Bilateral lower lobe consolidation/atelectasis and left greater than right pleural effusions. 2. Prominent hiatal hernia again noted. 3. Postsurgical findings in the region of the hiatal hernia and upper abdomen with surgical drains again in place. Elongated 4 x 2 cm fluid density in the left upper quadrant abutting the lateral margin of the stomach, nonspecific. Chest X-Ray 04/16/18 04:00 CONCLUSION: Unchanged exam. Chest X-Ray 04/17/18 06:00 CONCLUSION: No significant interval change. Persistent left lower lobe consolidation versus atelectasis and bilateral hazy pulmonary opacity with lower lung zone predominance. Objective Remarks: GENERAL: Patient is 77 yo lying in bed on nasal cannula in no acute distress SKIN: Warm and dry. HEAD: Normocephalic. EYES: No scleral icterus. No injection or drainage. NECK: Supple, trachea midline. No JVD or lymphadenopathy. CARDIOVASCULAR: Tachycardic and irregular. S1, S2 no S 4. RESPIRATORY: Breath sounds equal bilaterally. No accessory muscle use. GASTROINTESTINAL: Abdomen soft, non-tender, nondistended. Incision site is clean dry and intact MUSCULOSKELETAL: Trace nonpitting bilateral lower extremity edema Neuro: Awake and alert. Moves all 4 extremities spontaneously. Assessment and Plan - Assessment and Plan Plan: Neuro/Psych: Depressive disorder NOS History of TIA Awake and alert on paroxetine 10 mg daily for depression. CV: Postoperative CABG x2 ZAPATA to LAD, reverse saphenous vein graft to OM with left EVH and CLARA excision -Dr. Warner Atrial fibrillation Essential hypertension by history Hyperlipidemia Coronary artery disease status post PTCA left anterior descending proximal monitor HR and BP keep MAP>65mmHG On Verapamil 40mg TID, ASA 81mg daily Cardiac catheterization 417 revealed 0.48 cm area. EF 55-60%. Moderate aortic regurgitation. On rosuvastatin 10 mg daily at home. Noted allergies to atorvastatin simvastatin Cards has followed- Dr. Valle On Heparin drip- Monitor PTT per protocol. Resp: VDRF Extubated 04/12 Obstructive sleep apnea Continue with nasal cannula oxygen keep sats> 92% Bronchodilators every 6 hours, IS chest x-ray 04/19 a.m. s/p CT guided right thoracentesis 04/11 with removal 550 ml pleural fluid Exudative effusion by LDH criteria likely 2nd diuretics On furosemide 40 mg IV daily. GI: s/p Laparoscopic partial reduction of paraesophageal hernia, wedge resection of greater curvature of stomach 04/08 Diverticulosis Gastroesophageal reflux disease Hiatal hernia Hypoalbuminemia On PO cardiac diet Pantoprazole for GI prophylaxis CT abdomen/pelvis 04/12 - the previously noted free air on the prior study has resolved. Patient is recently status post abdominal surgery. There are surgical drains in the upper abdomen. Multiple dilated loops of small bowel with fluid and air suggestive of a postsurgical ileus. Prominent hiatal hernia. Docusate sodium/senna 1 tablet twice daily for hours along with polythene glycol 17 g daily KUB 04/11: Nonspecific, nonobstructive bowel gas pattern which may represent a mild ileus KUB abdomen 04/07 : Nonspecific bowel gas pattern with scattered small and large bowel gas. 04/08 CT abd/pelvis- Prominent amount of free air and free fluid in the upper abdomen and within a large hiatal hernia. A large portion of the stomach is in a hiatal hernia. Most likely etiology for the findings is a perforated gastric ulcer. 04/08 s/p Laparoscopic partial reduction of paraesophageal hernia, wedge resection of greater curvature of stomach, washout, drain placement performed. Monitor OANH drainage- Surgery- Dr. Craig. Endo: Hypothyroidism Currently on levothyroxine 100 mcg p.o. daily TSH:0.72 Sliding scale insulin with aspart insulin FEN//renal: Acute kidney injury Acute hypopotassemia Monitor renal function, I/O's, electrolytes replacement per protocol Furosemide 40mg IV daily Renal US: No hydronephrosis Heme: Leukocytosis Normocytic anemia Chronic warfarin use Monitor CBC, Coags daily.on Heparin drip per cards s/p transfusion 2u PRBC overnight 04/09 Okay to restart warfarin per general surgery ID: Rocío glabrata fungemia 04/08 On empiric abx (piperacillin/tazobactam, Micafungin) Monitor for signs of infections ( fever, WBC) WBC stabilized. Follow up BC 04/08: Rocío Glabrata Seen by Optho- No evidence of endophthalmitis C-diff PCR negative ID is following. Continue micafungin through 04/25. Continue piperacillin/ tazobactam until white blood cell count decreases MSK: Elevated BMI Osteoporosis/osteoarthritis Lumbar radiculopathy Physical therapy evaluate and treat Weight loss encouraged Access -Utilize peripheral IV. Prophylaxis -GI -pantoprazole -DVT-SCD/pharmacological prophylaxis- Heparin dip Level 2 follow-up Documented By: J Carlos Schroeder MD 04/19/18 1200 Signed By: <Electronically signed by J Carlos Schroeder MD> 04/19/18 1400 Wound Care Nurse Consult Description: Received Pressure ulcer consult from Doctor Elda for wound to sacral area Communicated with: VISHNU NEAL and Doctor Elda Recommendation: 1.Please cleanse patient's buttock area gently with Remedy barrier wipes, Cleanse open wounds with normal saline and pat dry. Apply Calazime skin protectant paste to denuded skin. Marked Tree eschar on open wounds with Cavilon skin barrier film . Leave wounds open to air,while patient is having loose continuous stools 2.When patient stops having continuous loose stools, patient could benefit from Santyl ointment to wound beds covered with Xeroform cut to fit the shape of the wounds avoiding intact surrounding skin and covered with bordered gauze, that can be changed daily. 3. Turn patient every 2 hours and PRN from L side to R side comfort and offloading of pressure from maggie prominences. 4. Limit use of layers under patient, Do not use cotton pads on low airloss mattress, Use one ultra sorb pad and flat turn sheet. 5. Patient will need to be placed on low airloss mattress/ bed when it arrives. Wound/Pressure Injury - Wound Right Buttocks Wound Staging: Unstageable Wound Type: Pressure Injury Is This a Chronic Wound: No Requested from Provider a Wound Care Consult: Yes Length (cm): 8 Width (cm): 6 Depth (cm): 0 (eschar) Wound Bed Appearance: Necrotic, Red Wound Bed Appearance: Wound bed presents with ~ 60% island of eschar with ~40% pink tissue toward edges Surrounding Tissue Appearance: [place] (denuded peeling skin) Surrounding Tissue Temperature: Cool Drainage Description: Serosanguinous Drainage Amount: Scant Drainage Odor: No Odor Dressing Status: Open to Air Cleansing Solution: Saline Wound Margin Description: Wound margins are well defined Left Buttocks Wound Staging: Unstageable Wound Assessment: Ongoing Wound Type: Pressure Injury Is This a Chronic Wound: No Requested from Provider a Wound Care Consult: Yes (Wound care inpatient saw patient today) Length (cm): 2 Width (cm): 3 Depth (cm): 0 (slough) Wound Bed Appearance: [place], Yellow Wound Bed Appearance: Wound bed present with ~ 60% yellow adherent slough and ~40% pink tisse Surrounding Tissue Appearance: [place] Surrounding Tissue Temperature: Cool Drainage Description: Serosanguinous Drainage Amount: Scant Drainage Odor: No Odor Dressing Status: Open to Air Cleansing Solution: Saline Wound Margin Description: Wound margins are well defined and open - Additional Information Patient seen today in CVICU for possible pressure ulcer to sacral area. Patient was assessed with writer technical publications and RN Bell CV[facility]. Patient was turned with maximum two person assist toward the L side for wound assessment.Patient is laying on Libia protevo bed with two cotton underpads staggered under her. Patient noted with unstageable pressure injuries on each buttock. Wound one is located on the R buttock and appears to have a mixed etiology of moisture, friction, and pressure. Wound has an oval shape with peeling denuded skin to periwound. Wound measurements and full description are noted above. Wound presents with ~60% island of eschar and ~40% pink tissue toward the edges. Wound has no active drainage, or odor.Scant amount of sero-sanguinous drainage is observed on cotton underpad. Wound two is located on the L buttock, and is the smaller of the two wounds. Wound presents with ~60% dry yellow adherent slough and ~40% pink tissue. Wound also has no active drainage or odor. Scant amount of sero-sanguinous drainage is observed on cotton under pad. Wound also presents with a mixed etiology of moisture, pressure, and friction. Full wound description with measurements are noted above. Both wounds were cleansed with normal saline and left open to air at this time. Patient is having constant loose stools, which makes dressing wound difficult, patient is contraindicated for fecal management system.Removed cotton underpads and placed one ultra sorb under patient.Applied skin barrier film to eschar and patient was positioned off bottom. Recommendations for wound care are noted above. [facility] notes 04/04 pt electively admitted for surgery PREPROCEDURE DIAGNOSES 1. Severe Multi Vessel Coronary Artery Disease. 2. Severe aortic stenosis 3. Atrial fibrillation status post ablation POSTPROCEDURE DIAGNOSES 1. Severe Multi Vessel Coronary Artery Disease. 2. Severe aortic stenosis 3. Atrial fibrillation status post ablation 4. Heavily calcified ascending aorta SURGICAL PROCEDURE 1. Clampless off-pump Coronary Artery Bypass Grafting x 2 with Left Internal Mammary Artery (ZAPATA) to Left Anterior Descending (LAD), reverse saphenous vein graft to obtuse Marginal branch of the left Circumflex artery 2. Left leg Endoscopic Vein [place] 3. Left atrial appendage excision pt extubated after surgery crystalloid 2300cc, 1500cc EBL, 750cc cell saver 04/05 pt up in chair ECG with some mild global st elevation / pericarditis + rub, no pressors , stable for transfer, resume BB will need to resume coumadin when chest tubes out 04/06 chest tube dc without difficultly pt went into afib RVR last night and this am received 2nd bolus of amiodarone / po amiodarone increased will resume coumadin / this pm goal 2.5 / followed by Dr Menendez at home 04/07 pt was transferred back to CVICU yesterday became bradycardic / hypotensive / despite IV fluids calcium chloride / required Dopamine gtt / remains in afib rate now 90's , BP improved discussed with Dr Warner/ will consult cardiology regarding cardiac meds start lovenox and coumadin/ dc when INR > 2.0 dc fem line / consult PT / observe in CVICU today 04/08 Remains in atrial fibrillation with rapid ventricular response heart rate in the 120s Overnight events noted she received diltiazem, digoxin and Lopressor for heart rate with resultant hypotension requiring Dayday-Synephrine which is presently being weaned. Remains somewhat labile with her blood pressure Had echo this morning. Awaiting results Renal function worsening. Will consult nephrology. Likely secondary to hypoperfusion If ventricular function is okay, will give gentle hydration - Preoperative Diagnosis (1) Pneumoperitoneum (2) Paraesophageal hernia - Postoperative Diagnosis (1) Pneumoperitoneum (2) Paraesophageal hernia (3) Gastric ulcer, acute with perforation Date of procedure: 04/08/18 Procedure: Diagnostic laparoscopy Laparoscopic partial reduction of paraesophageal hernia Laparoscopic wedge resection of greater curvature of stomach 04/09 Operative findings noted Remains intubated and mechanically ventilated On Levophed for hemodynamic support. Weaning as tolerated Greatly appreciate Dr. Craig's input and assistance Renal function improving. Appreciate Dr. Holliday's input 04/10 remains sedated on vent 40% Fi02 SVV 17, CO 5.2/2.7 on Levo gtt at 2 mcq, in afib rate 110 creatinine improving left OANH drain 30cc/ 12 hrs, right OANH drain 10cc/ 12hr some drainage from prior chest tubes sites/ will dc prevena dressing 04/11 pt off all pressors , remains on 40% fi02 only on low dose fentanly for pain , awake follows commands, moves all extremities NA improving , creatinine improving, + hypoactive bowel sounds DC CVC line today, ok for Lovenox or Heparin SQ consult PT ROM 04/12 s/p right thoracentesis yesterday, removed 550cc bloody fluid remains on vent 40% awake , following commands, worsening leukocytosis cultures pending / ID following on Heparin gtt, rate improved 04/13 Clinically and hemodynamically stable. In atrial fibrillation with rate control. On heparin drip WBC continues to rise. Appreciate ID input and involvement Incentive spirometry and physical therapy as tolerated 04/14 Doing better. Hemodynamically stable Persistent leukocytosis. On antibiotics per ID Planned initiation of p.o. intake by general surgery 04/15 Clinically stable White count continues to rise. On antifungals and antimicrobials Remains in A. fib with rate control 04/16 Clinically better Tolerating p.o. intake WBC slightly improved 04/17 remains very weak , requires 2 person assist no pressors WBC count improving Afib with rate controlled/ on Heparin gtt/ ok for lovenox instead of Heparin per [facility]S if needed eval for LTAC by case management tolerating full liquid diet 04/18 still weak, plan for discharge to LTAC when cleared by consultants still has WBC 24K, no fevers , recheck UA, then dc ernandez cath / antibiotics per ID ? recheck CT abdomen , OANH drains out start coumadin , then dc heparin gtt check CXR in am / pulm toileting ID notes Sepsis ongoing (fever at some point, WBC, source: Candidemia likely sec to GI issues: perforation. Large paraesophageal hernia sp perforation of stomach with diffuse contamination of abdominal cavity. SIRS/high grade leucocytosis likely from peritonitis and fungemia. sp emergent lap repair Acute VDRF ALVIN CAD severe sp CABG on 04/04 leukocytosis; now improving - leukemoid reaction, b/l pleural effusions, consolidations Ileus C.glabrata sepsis source intraabd less likley line - no fungal endophthalmitis repeat BC are negative 2D echo negative as of 04/08 No drainable fluid collections on abd/pel CT scan Recs: cont zosyn for now will need to have WBC close to normal before we stop it cont micafungin thru 05/03 will repeat 2 D echo if more + bl clx Will repeat CT A/P if cont to have unexplained worsening leukocytosis dw Dr YOSHI mondragon RN OK to transfer to [facility] Vital signs: Vital Signs 04/18/18 15:00 04/18/18 15:24 04/18/18 17:00 Temperature 98.2 F Pulse Rate 91 H 75 Respiratory Rate 24 17 Blood Pressure 146/77 H Pulse Oximetry 99 96 04/18/18 19:00 04/18/18 20:57 04/18/18 23:00 Temperature 97.1 F L 96.9 F L Pulse Rate 91 H 82 92 H Respiratory Rate 24 18 20 Blood Pressure 156/63 H 139/67 Pulse Oximetry 99 95 94 L 04/19/18 00:00 04/19/18 03:00 04/19/18 04:04 Temperature 97.8 F Pulse Rate 83 77 Respiratory Rate 20 18 Blood Pressure 139/68 Pulse Oximetry 96 94 L 04/19/18 07:00 04/19/18 10:29 04/19/18 11:00 Temperature 98.0 F 98.2 F Pulse Rate 79 86 76 Respiratory Rate 20 17 20 Blood Pressure 143/72 H 151/65 H Pulse Oximetry 98 95 99 04/19/18 13:32 Temperature Pulse Rate 70 Respiratory Rate 16 Blood Pressure Pulse Oximetry Intake & Output 04/18/18 04/19/18 04/19/18 18:59 06:59 18:59 Intake Total 1300 / 1300 370 / 370 127 / 127 Output Total 1160 / 1160 100 / 100 Balance 140 / 140 270 / 270 127 / 127 Weight 92 kg Intake: IV 400 / 400 320 / 320 127 / 127 Heparin/D5W 25,000 U/250 mL 25, 120 / 120 27 / 27 000 unit In 250 ml @ 1,700 UNITS/HR 17 mls/hr IV.CONT TITRATE PRN Rx#:[id number] Mycamine Inj 150 MG In NS Inj 100 / 100 100 ML @ 100 mls/hr IV.SIG Q24H JOSE Rx#:[id number] Zosyn 3.375 GM Premix 50 ML @ 100 / 100 200 mls/hr IV.SIG Q6H JOSE Rx#: [id number] Zosyn 4.5 GM Premix 4.5 gm In 100 / 100 200 / 200 100 / 100 100 ml @ 200 mls/hr IV.SIG Q6H JOSE Rx#:[id number] KCl 20 mEq Premix Inj 20 meq In 100 / 100 100 ml @ 50 mls/hr IV.SIG Q2H PRN Rx#:[id number] Oral 900 / 900 50 / 50 Output: Urine 900 / 900 100 / 100 Urine Amount (Catheter) 260 / 260 Indwelling Urethral Catheter 260 / 260 Other: Date of Last Bowel Movement 04/18/18 04/18/18 04/19/18 # Bowel Movements 3 - Constitutional no acute distress - Routine HEENT Exam Head: Present: normocephalic, atraumatic Eye: Present: EOMI, PERRL, normal accommodation ENT: Present: mucous membranes moist - Routine Neck Exam Present: supple, full ROM - Routine Chest/Breast/Axilla Exam Chest wall: Present: tenderness - Routine Respiratory Exam Present: decreased breath sounds, CTA bilaterally - Routine Cardiovascular Exam Present: murmur, irregular rhythm - Routine Abdominal Exam Present: soft, normoactive bowel sounds, surgical scars Comments: small laparoscopic incisions to abd / and prior OANH drains - Routine Extremities Exam Present: pulses intact, normal capillary refill Comments: poor skin turgor - Routine Skin Exam Present: intact, scars, wounds Comments: * Right Buttocks Wound Staging: Unstageable Wound Type: Pressure Injury Is This a Chronic Wound: No Requested from Provider a Wound Care Consult: Yes Length (cm): 8 Width (cm): 6 Depth (cm): 0 (eschar) Wound Bed Appearance: Necrotic, Red Wound Bed Appearance: Wound bed presents with ~ 60% island of eschar with ~40% pink tissue toward edges Surrounding Tissue Appearance: [place] (denuded peeling skin) sternum incision intact and well approximated chest tube sites no drainage / drying scabs - Routine Neurological Exam Present: alert, oriented X3, CN II-XII intact Results Completed studies during hospitalization: Pending at discharge 04/04/18 12:46 Surgical [PTH] Routine 04/09/18 08:58 Surgical [PTH] Routine - Impressions Chest X-Ray 04/04/18 11:27 CONCLUSION: 1. Status post CABG. 2. Cardiomegaly with pulmonary vascular congestion and bibasilar densities. 3. Support lines and tubes as above. 4. Nasogastric tube likely coiled within a large hiatal hernia. Chest X-Ray 04/05/18 05:00 CONCLUSION: Bibasilar consolidation slightly worse on the right and slightly improved on the left since yesterday. Mediastinal drain and left chest tube remain in place. No pneumothorax. Chest X-Ray 04/06/18 00:00 CONCLUSION: 1. Huge hiatal hernia and the entire stomach is basically said the chest filled with gas not present previously. 2. Slight bilateral lung base atelectasis and/or infiltrate is seen, mild pulmonary edema is also suspected. Abdomen X-Ray 04/07/18 00:00 CONCLUSION: Nonspecific bowel gas pattern with scattered small and large bowel gas. Chest X-Ray 04/07/18 06:00 CONCLUSION: Resolving pulmonary edema. Small left effusion Abdomen/Bladder Ultrasound 04/08/18 00:00 CONCLUSION: Kidneys within normal limits. Right pleural effusion noted. Chest X-Ray 04/08/18 09:12 CONCLUSION: 1. Increased bilateral lower lung zone opacity indicating a combination of consolidation/atelectasis and small pleural effusions. 2. Large hiatal hernia with gas-filled stomach in the chest again seen. Abdomen/Pelvis CT 04/08/18 10:09 CONCLUSION: 1. Prominent amount of free air and free fluid in the upper abdomen and within a large hiatal hernia. A large portion of the stomach is in a hiatal hernia. Most likely etiology for the findings is a perforated gastric ulcer. Findings discussed with the patient's nurse. 2. Distended gallbladder. Chest CT 04/08/18 10:09 CONCLUSION: 1. Large hiatal hernia containing a large portion of the stomach with moderate amount of free air in the hiatal hernia and in the upper abdomen. Distal gastric wall thickening and extraluminal fluid adjacent to the distal stomach. Most likely etiology for the findings is a perforated gastric ulcer. Free fluid is also seen in the upper abdomen. 2. New bilateral lower lobe atelectasis/consolidation and small bilateral pleural effusions. Chest X-Ray 04/08/18 22:44 CONCLUSION: Satisfactory tube and line positioning. Improved aeration. Chest X-Ray 04/10/18 09:12 CONCLUSION: Bibasilar consolidation and pleural effusions. Chest Ultrasound 04/11/18 00:00 CONCLUSION: 1. Left pleural effusion and marked on the skin. Chest Ultrasound 04/11/18 00:00 CONCLUSION: 1. Right pleural effusion marked on the skin. Thoracentesis CT 04/11/18 00:00 CONCLUSION: 1. Uncomplicated CT-guided thoracentesis. Abdomen X-Ray 04/11/18 12:13 CONCLUSION: Nonspecific, nonobstructive bowel gas pattern which may represent a mild ileus or gastroenteritis. Chest X-Ray 04/11/18 16:34 CONCLUSION: Status post right thoracentesis. No evidence of pneumothorax. Abdomen/Pelvis CT 04/12/18 00:00 CONCLUSION: 1. The previously noted free air on the prior study has resolved. Patient is recently status post abdominal surgery. There are surgical drains in the upper abdomen. 2. There is a trace of fluid adjacent to the liver. There is a small amount of free fluid deep in the pelvis. 3. Multiple dilated loops of small bowel with fluid and air suggestive of a postsurgical ileus. 4. There continues to be a prominent hiatal hernia. 5. Small bilateral pleural effusions with atelectasis in both lung bases. Chest X-Ray 04/14/18 09:40 CONCLUSION: Persistent mild vascular congestion and left basilar airspace disease. Suspected small effusions. Otherwise stable chest status post extubation. Chest CT 04/16/18 00:00 CONCLUSION: 1. Bilateral lower lobe consolidation/atelectasis and left greater than right pleural effusions. 2. Prominent hiatal hernia again noted. 3. Postsurgical findings in the region of the hiatal hernia and upper abdomen with surgical drains again in place. Elongated 4 x 2 cm fluid density in the left upper quadrant abutting the lateral margin of the stomach, nonspecific. Chest X-Ray 04/16/18 04:00 CONCLUSION: Unchanged exam. Chest X-Ray 04/17/18 06:00 CONCLUSION: No significant interval change. Persistent left lower lobe consolidation versus atelectasis and bilateral hazy pulmonary opacity with lower lung zone predominance. Transfer Discharge Sum: A/P - Plan Cognitive capacity at transfer: Alert, oriented general weakness , needs two person assist Functional capacity at transfer: bed bound Overall status at transfer: patient is not back to baseline - Plan Disposition: [facility] Rehab Inpatient
[2018-04-19 16:09] VITALS: PULSE 75
[2018-04-19 16:33] VITALS: BP 143/65; TEMP 98.1; O2SAT 97
--- NOTE | 2018-04-19 23:28 | P.PNCA ---
Subjective Interval history: No events overnight Plan to discharge to LTAC soon Medications and Allergies Allergies Allergy/AdvReac Type Severity Reaction Status Date / Time atorvastatin AdvReac Hypotension Verified 04/04/18 06:21 simvastatin AdvReac Hypotension Verified 04/04/18 06:21 Home Medications Medication Instructions Recorded Confirmed Type pantoprazole 40 mg PO DAILY 02/16/18 04/04/18 History paroxetine HCl 10 mg PO DAILY 02/16/18 04/04/18 History rosuvastatin 20 mg PO DAILY 02/16/18 04/04/18 History Physical Exam Vital signs: Vital Signs 04/19/18 00:00 04/19/18 03:00 04/19/18 04:04 Temperature 97.8 F Pulse Rate 83 77 Respiratory Rate 20 18 Blood Pressure 139/68 Pulse Oximetry 96 94 L 04/19/18 07:00 04/19/18 10:29 04/19/18 11:00 Temperature 98.0 F 98.2 F Pulse Rate 79 86 76 Respiratory Rate 20 17 20 Blood Pressure 143/72 H 151/65 H Pulse Oximetry 98 95 99 04/19/18 12:15 04/19/18 13:32 04/19/18 14:00 Temperature 98.4 F Pulse Rate 73 70 Respiratory Rate 14 16 Blood Pressure 135/61 Pulse Oximetry 98 98 04/19/18 15:00 04/19/18 16:09 04/19/18 17:41 Temperature 98.1 F Pulse Rate 72 75 Respiratory Rate 16 16 Blood Pressure 143/65 H Pulse Oximetry 97 97 Intake & Output 04/19/18 04/19/18 04/20/18 06:59 18:59 06:59 Intake Total 370 / 370 807 / 807 Output Total 100 / 100 100 / 100 Balance 270 / 270 707 / 707 Weight 92 kg Intake: IV 320 / 320 327 / 327 Heparin/D5W 25,000 U/250 mL 25, 120 / 120 27 / 27 000 unit In 250 ml @ 1,700 UNITS/HR 17 mls/hr IV.CONT TITRATE PRN Rx#:[id number] Mycamine Inj 150 MG In NS Inj 100 / 100 100 ML @ 100 mls/hr IV.SIG Q24H YASH Rx#:[id number] Zosyn 4.5 GM Premix 4.5 gm In 200 / 200 200 / 200 100 ml @ 200 mls/hr IV.SIG Q6H YSAH Rx#:[id number] Oral 50 / 50 480 / 480 Output: Urine 100 / 100 100 / 100 Other: # Incontinent Voids 2 Date of Last Bowel Movement 04/18/18 04/19/18 # Incontinent Bowel Movements 1 Narrative: GENERAL: NAD SKIN: Warm and dry. HEAD: Atraumatic. Normocephalic. EYES: Pupils equal and round. No scleral icterus. No injection or drainage. ENT: No nasal bleeding or discharge. Mucous membranes pink and moist. NECK: Trachea midline. No JVD. CARDIOVASCULAR: Irregularly irregular RESPIRATORY: No accessory muscle use. Decreased breath sounds bilaterally GASTROINTESTINAL: Abdomen soft, non-tender, nondistended. Hepatic and splenic margins not palpable. MUSCULOSKELETAL: Extremities without clubbing, cyanosis, or edema. No obvious deformities. NEUROLOGICAL: Awake and alert. No obvious cranial nerve deficits. Motor grossly within normal limits. Five out of 5 muscle strength in the arms and legs. Normal speech. PSYCHIATRIC: Appropriate mood and affect; insight and judgment normal. - Urinary Catheter Management Indwelling Temp Sensing Catheter Cath placed during this visit: yes Urethral indwelling: No Reason for continuing: Hourly intake/output Insertion date: 04/04/18 Insertion time: 07:52 Indwelling Urethral Catheter Cath placed during this visit: yes, but has since been removed by the nurse Reason for continuing: Not indwelling catheter Insertion date: 04/08/18 Insertion time: 16:51 Removal date: 04/18/18 Removal time: 11:04 Results 04/19/18 04:55 04/19/18 16:30 Cardiac Enzymes 04/18/18 04/19/18 Range/Units 06:23 04:55 AST 64 H 63 H (15-37) U/L Coagulation 04/18/18 04/18/18 04/19/18 Range/Units 06:23 06:23 04:55 PT 14.6 H 13.4 H (9.8-11.6) sec APTT 49.5 H D 51.3 H (23.4-31.7) sec CBC 04/18/18 04/19/18 Range/Units 06:23 04:55 WBC 24.6 H 23.9 H (4.0-11.0) th/mm3 RBC 3.37 L 3.20 L (4.00-5.30) mil/mm3 Hgb 9.8 L 9.4 L (11.6-15.3) gm/dL Hct 30.6 L 28.7 L (35.0-46.0) % Plt Count 413 495 H (150-450) th/mm3 Neut # (Auto) 22.2 H 21.3 H (1.8-7.7) th/mm3 Lymph # (Auto) 1.2 1.2 (1.0-4.8) th/mm3 [place] # (Auto) 1.0 H 0.9 (0.0-0.9) th/mm3 Eos # (Auto) 0.2 0.4 (0.0-0.4) th/mm3 Baso # (Auto) 0.1 0.1 (0.0-0.2) th/mm3 Comprehensive Metabolic Panel 04/18/18 04/19/18 04/19/18 Range/Units 06:23 04:55 16:30 Sodium 143 143 (136-145) meq/L Potassium 3.4 L 3.1 L 3.2 L (3.5-5.1) meq/L Chloride 104 99 (98-107) meq/L Carbon Dioxide 32.2 H 34.3 H (21.0-32.0) meq/L BUN 18 16 (7-18) mg/dL Creatinine 0.78 0.76 (0.50-1.00) mg/dL Calcium 8.0 L 8.2 L (8.5-10.1) mg/dL AST 64 H 63 H (15-37) U/L ALT 53 53 (10-53) U/L Alkaline Phosphatase 100 86 (45-117) U/L Total Protein 6.0 L 6.4 (6.4-8.2) g/dL Albumin 1.9 L 2.0 L (3.4-5.0) g/dL Intake and Output 04/19/18 04/19/18 04/20/18 14:59 22:59 06:59 Intake Total 227 / 227 580 / 580 Output Total 100 / 100 Balance 227 / 227 480 / 480 Intake: IV / 227 100 / 100 Heparin/D5W 25,000 U/250 mL 25, 27 / 27 000 unit In 250 ml @ 1,700 UNITS/HR 17 mls/hr IV.CONT TITRATE PRN Rx#:[id number] Mycamine Inj 150 MG In NS Inj 100 / 100 100 ML @ 100 mls/hr IV.SIG Q24H YASH Rx#:[id number] Zosyn 4.5 GM Premix 4.5 gm In 100 / 100 100 / 100 100 ml @ 200 mls/hr IV.SIG Q6H YASH Rx#:[id number] Oral 480 / 480 Output: Urine 100 / 100 Other: # Incontinent Voids 2 Date of Last Bowel Movement 04/19/18 04/19/18 # Incontinent Bowel Movements 1 Assessment and Plan - Assessment (1) Severe aortic stenosis Code(s): I35.0 - Nonrheumatic aortic (valve) stenosis Status: Chronic (2) Coronary artery disease involving [place] coronary artery Code(s): I25.10 - Atherosclerotic heart disease of [place] coronary artery without angina pectoris Status: Acute (3) Congestive heart failure (CHF) Code(s): I50.9 - Heart failure, unspecified Status: Chronic (4) Atrial fibrillation Code(s): I48.91 - Unspecified atrial fibrillation Status: Chronic (5) S/P CABG (coronary artery bypass graft) Code(s): Z95.1 - Presence of aortocoronary bypass graft Status: Acute - Plan 1) CAD s/p CABGx2 2) Residual Possible TAVR in the future Not a BAV candidate at this time with at least moderate AR 3) AFib Cardioverted before abdominal surgery Back in AFib Heart rates stable after digoxin load Now on Verapamil controlling rates Lovenox/Coumadin 4) Gastric ulcer/perfs Per surgery 5) For LTAC today hopefully
--- NOTE | 2018-04-26 14:29 | P.PNCV ---
- Note Subjective/Hospital Course: 77/ female initially seen on 03/13/18 in [facility] office with Dr Warner, hx of progressive SOB over past few months . Known hx of CAD previous PCI's , ECHO revealed severe . Cardiac cath revealed multivessel disease PMH: Afib, Aortic stenosis, Asthma, CAD (coronary artery disease), CHF ( congestive heart failure), HLD (hyperlipidemia), HTN (hypertension) Hiatal hernia, Hypothyroid, LBBB (left bundle branch block), Mitral regurgitation, Myocardial infarct, Sleep apnea, TIA (transient ischemic attack) UTI (urinary tract infection) 04/04 pt electively admitted for surgery PREPROCEDURE DIAGNOSES 1. Severe Multi Vessel Coronary Artery Disease. 2. Severe aortic stenosis 3. Atrial fibrillation status post ablation POSTPROCEDURE DIAGNOSES 1. Severe Multi Vessel Coronary Artery Disease. 2. Severe aortic stenosis 3. Atrial fibrillation status post ablation 4. Heavily calcified ascending aorta SURGICAL PROCEDURE 1. Clampless off-pump Coronary Artery Bypass Grafting x 2 with Left Internal Mammary Artery (ZAPATA) to Left Anterior Descending (LAD), reverse saphenous vein graft to obtuse Marginal branch of the left Circumflex artery 2. Left leg Endoscopic Vein [place] 3. Left atrial appendage excision pt extubated after surgery crystalloid 2300cc, 1500cc EBL, 750cc cell saver 04/05 pt up in chair ECG with some mild global st elevation / pericarditis + rub, no pressors , stable for transfer, resume BB will need to resume coumadin when chest tubes out 04/06 chest tube dc without difficultly pt went into afib RVR last night and this am received 2nd bolus of amiodarone / po amiodarone increased will resume coumadin / this pm goal 2.5 / followed by Dr Menendez at home 04/07 pt was transferred back to CVICU yesterday became bradycardic / hypotensive / despite IV fluids calcium chloride / required Dopamine gtt / remains in afib rate now 90's , BP improved discussed with Dr Warner/ will consult cardiology regarding cardiac meds start lovenox and coumadin/ dc when INR > 2.0 dc fem line / consult PT / observe in CVICU today 04/08 Remains in atrial fibrillation with rapid ventricular response heart rate in the 120s Overnight events noted she received diltiazem, digoxin and Lopressor for heart rate with resultant hypotension requiring Dayday-Synephrine which is presently being weaned. Remains somewhat labile with her blood pressure Had echo this morning. Awaiting results Renal function worsening. Will consult nephrology. Likely secondary to hypoperfusion If ventricular function is okay, will give gentle hydration - Preoperative Diagnosis (1) Pneumoperitoneum (2) Paraesophageal hernia - Postoperative Diagnosis (1) Pneumoperitoneum (2) Paraesophageal hernia (3) Gastric ulcer, acute with perforation Date of procedure: 04/08/18 Procedure: Diagnostic laparoscopy Laparoscopic partial reduction of paraesophageal hernia Laparoscopic wedge resection of greater curvature of stomach 04/09 Operative findings noted Remains intubated and mechanically ventilated On Levophed for hemodynamic support. Weaning as tolerated Greatly appreciate Dr. Craig's input and assistance Renal function improving. Appreciate Dr. Holliday's input 04/10 remains sedated on vent 40% Fi02 SVV 17, CO 5.2/2.7 on Levo gtt at 2 mcq, in afib rate 110 creatinine improving left OANH drain 30cc/ 12 hrs, right OANH drain 10cc/ 12hr some drainage from prior chest tubes sites/ will dc prevena dressing 04/11 pt off all pressors , remains on 40% fi02 only on low dose fentanly for pain , awake follows commands, moves all extremities NA improving , creatinine improving, + hypoactive bowel sounds DC CVC line today, ok for Lovenox or Heparin SQ consult PT ROM 04/12 s/p right thoracentesis yesterday, removed 550cc bloody fluid remains on vent 40% awake , following commands, worsening leukocytosis cultures pending / ID following on Heparin gtt, rate improved 04/13 Clinically and hemodynamically stable. In atrial fibrillation with rate control. On heparin drip WBC continues to rise. Appreciate ID input and involvement Incentive spirometry and physical therapy as tolerated 04/14 Doing better. Hemodynamically stable Persistent leukocytosis. On antibiotics per ID Planned initiation of p.o. intake by general surgery 04/15 Clinically stable White count continues to rise. On antifungals and antimicrobials Remains in A. fib with rate control 04/16 Clinically better Tolerating p.o. intake WBC slightly improved 04/17 remains very weak , requires 2 person assist no pressors WBC count improving Afib with rate controlled/ on Heparin gtt/ ok for lovenox instead of Heparin per [facility] if needed eval for LTAC by case management tolerating full liquid diet 11/13 still weak, plan for discharge to LTAC when cleared by consultants still has WBC 24K, no fevers , recheck UA, then dc ernandez cath / antibiotics per ID ? recheck CT abdomen , OANH drains out start coumadin , then dc heparin gtt check CXR in am / pulm toileting no BB or ARB 2/2 recent hypotension / septic shock Result Diagrams: 04/19/18 04:55 04/19/18 16:30 - Plan (1) Severe aortic stenosis Plan: will need planned TAVR after discharge (2) Coronary artery disease involving [place] coronary artery Plan: ASA, verapamil OOB / PT/ OT pulm toileting resume home med/ will need family to bring in discharge planning to LTAC when cleared by consultants and WBC count improved (3) Congestive heart failure (CHF) Plan: gentle diuresis (4) Atrial fibrillation Plan: s/p atrial appendage excision resume Coumadin / when cleared by general surgery on heparin gtt and verapamil (5) COPD (chronic obstructive pulmonary disease) Plan: nebs ezpap and acapella (6) S/P CABG (coronary artery bypass graft) Plan: ASA, resume home med crestor pulm toileting , nebs ezpap, acapella OOB ambulate eval for LTAC at discharge eval for transfer to stepdown, when cleared by CCM, will need to be close to nurses station vs transfer to LTAC from CVICU (7) S/P exploratory laparotomy Plan: general surgery following (10) Respiratory failure requiring intubation Plan: / resolved (11) Leukocytosis Plan: hernandes -culture ABX per ID WBC 24K on antibiotics (12) Acute renal failure Plan: nephro following (14) Fungemia Plan: on micafungin ID following
== END 2018-04-19 19:12 ==
LOC: HSDC 05:38 → EDSTATUS 07:30 → HSDI 11:56 → HCVI 12:14 → HCPC 04-05 10:57 → HCVI 04-06 16:00 → HCPC 04-19 12:57
PROVIDERS: ADMIT Thoracic Surgery (Cardiothoracic Vascular Surgery); ATTEND Thoracic Surgery (Cardiothoracic Vascular Surgery)